=== PATIENT | female | born 1995 | race Caucasian/White ===

== ENCOUNTER 2022-02-17 04:19 | Emergency (ER) | payer OTHER ==
--- OUTSIDE RECORDS SUMMARY | 2022-02-17 04:24 | XMS REPORT | Continuity of Care Document ---
:1995 Author Organization [facility] t Address [address] [place] [address] Care Team Providers Name Role Phone Oskar ELLIOTT Primary Care Physician Unavailable MYLENE Attending Clinician Unavailable Pamela Fenton Attending Clinician Unavailable Yonny Chan Attending Clinician Unavailable SHUKRI Attending Clinician Unavailable Oskar ELLIOTT Attending Clinician Unavailable Visit, Nurse Attending Clinician Unavailable Earl WEATHERIZATION OPERATIONS MANAGER, R Attending Clinician Lab Attending Clinician Unavailable Ultrasound Attending Clinician Unavailable Lucius MOREL F Attending Clinician Doctor Unassigned, Name Attending Clinician Unavailable JOHN VUONG Attending Clinician Unavailable Risk Attending Clinician Unavailable John Rausch Attending Clinician Pamela Fenton Admitting Clinician Unavailable KNOW Admitting Clinician Unavailable Payers Payer Name Policy Type Policy Number Effective Date Expiration Date [facility] MEDICAID STAR [id number] 2020 00:00:00 [facility] [id number] 2020 [facility] MEDICAID 00:00:00 MEDICAID OF [place] [id number] 2020 00:00:00 Problems Condition Condition Condition Status Onset Resolution Last Treating Co mments Source Name Details Category Date Date Treatment Clinician Date Adult ADHD Adult ADHD Disease Active 2020-0 U nivers 5-28 ity of 00:00: [place] [id number] Medical Branch Congestion Congestion Disease Active 2020-0 U nivers of nasal of nasal 5-12 ity of sinus sinus 00:00: [place] 00 Medical Branch Attention Attention Disease Active 2020-0 Uni vers deficit deficit 5-12 ity [place] hyper[place] Medical disorder disorder Branch (ADHD), (ADHD), unspecifie unspecifie d ADHD d ADHD type type Maternal Maternal Disease Active 2020- Overview: Un sky varicella, varicella, 4-16 Will it y of non-immune non-immune [place] Medical Post[place] Branch m. Supervisio Supervisio Disease Active 2020-0 U nivers n of high n of high 4-15 ity of risk risk 00:00: [place] , , 00 Me dical antepartum antepartum Br anch Previous Previous Disease Active 2019-0 Unive rs 4-15 ity of delivery delivery 00:00: [place] affecting affecting 00 Medi michael , , Br anch antepartum antepartum Multiparit Multiparit Disease Active 2020-0 U nivers y y 4-15 ity of 00:00: [place] 00 Medical Branch Ear pain, Ear pain, Disease Active 2019-0 Uni vers bilateral bilateral 4-15 ity of 00:00: [place] 00 Medical Branch Obesity in Obesity in Disease Active 2020-0 U nivers 4-15 ity of 00:00: [place] 00 Medical Branch Allergies, Adverse Reactions, Alerts Allergy Allergy Status Severity Reaction(s) Onset Inactive Treating Comm ents Source Name Type Date Date Clinician No Known DA Active U [facility] 00 [facility] No Known DA Active U 2019-10 [facility] Allergie 1-30 [facility] 00:00: [facility] 00 [facility] No Known DA Active U 2019- [facility] Allergie 1-30 [facility] 00:00: [facility]osp[facility] 00 [facility] No Known DA Active U 2019- [facility] Allergie 1-24 [facility] s 00:00: [facility]osp[facility] 00 [facility] No Known DA Active U 2019- [facility] Allergie 1-24 [facility] s 00:00: [facility]osp[facility] 00 [facility] NO KNOWN Drug Active Univers ALLERGIE Class ity of S [facility] Social History Social Habit Start Date Stop Date Quantity Comments Source ASSERTION 2020-01-08 University of 00:00:00 [facility] History SDOH University o f Alcohol Std [place] Medical Drinks Branch History SDOH University o f Alcohol Binge [place] [facility] al [facility] Sex Assigned At [facility] [place] [facility] Exposure to Not sure University SARS-CoV-2 [place] [facility] (event) Branch Tobacco use and 2020-06-30 2020-06-30 Never used Universit y of exposure 00:00:00 00:00:00 [facility] Branch Alcohol intake 2020-06-30 2020-06-30 Ex-drinker University 00:00:00 00:00:00 (finding) [place] [facility] History SDOH 2020-02-13 2020-02-13 1 University o f Alcohol Frequency 00:00:00 00:00:00 [facility] edical Branch Smoking Status Start Date Stop Date Source Unknown if ever smoked [facility] [place] [facility] Never smoker [facility] Medications Ordered Filled Start Stop Current Ordering Indication Dosage Frequency Signature Comments Components Source Medication Medication Date Date Medication? Clinician (SIG) Name Name Blood-Gluco 2020-0 Yes [id number] Use as Univers se Meter 8-24 directed ity of (FREESTYLE 00:00: [place] LITE METER) 00 Medical Kit Branch blood sugar 2020-0 Yes [id number] Use as Univers diagnostic 8-24 directed ity o f (FREESTYLE 00:00: [place] LITE 00 Medical STRIPS) Branch strip lancets 17 2019-0 Yes [id number] Use as U nivers gauge Misc 8-24 directed ity o f 00:00: [place] 00 Medical Branch Blood-Gluco 2020-0 Yes [id number] Use as Univers se Meter 8-24 directed ity of (FREESTYLE 00:00: [place] LITE METER) 00 Medical Kit Branch blood sugar 2020-0 Yes [id number] Use as Univers diagnostic 8-24 directed ity o f (FREESTYLE 00:00: [place] LITE 00 Medical STRIPS) Branch strip lancets 17 2020-0 Yes [id number] Use as U nivers gauge Misc 8-24 directed ity o f 00:00: [place] 00 Medical Branch Blood-Gluco 2020-0 Yes [id number] Use as Univers se Meter 8-24 directed ity of (FREESTYLE 00:00: [place] LITE METER) 00 Medical Kit Branch blood sugar 2020-0 Yes [id number] Use as Univers diagnostic 8-24 directed ity o f (FREESTYLE 00:00: [place] LITE 00 Medical STRIPS) Branch strip lancets 17 2020-0 Yes [id number] Use as U nivers gauge Misc 8-24 directed ity o f 00:00: [place] 00 Medical Branch Blood-Gluco 2019-0 Yes [id number] Use as Univers se Meter 8-24 directed ity of (FREESTYLE 00:00: [place] LITE METER) 00 Medical Kit Branch blood sugar 2020-0 Yes [id number] Use as Univers diagnostic 8-24 directed ity o f (FREESTYLE 00:00: [place] LITE 00 Medical STRIPS) Branch strip lancets 17 2019-0 Yes [id number] Use as U nivers gauge Misc 8-24 directed ity o f 00:00: [place] 00 Medical Branch colistin-ne 2019-0 Yes [id number] 1[drp] Place 1 Univers omycin-hc-t 4-15 Drop in ity o f honzonium 00:00: both ears Dave as (CORTISPORI 00 4 (four) Medi michael N-TC) times Branch 3.3-3-10-0. daily. 5 mg/mL otic drops 2020-0 Yes [id number] 1{packe Take 1 Univers vit 4-15 t} Packet by ity of 33-iron-fol 00:00: mouth [place] ic-dha 00 daily. Medical (SELECT-OB Branch + DHA) 29 mg iron-1 mg -250 mg combo pack colistin-ne 2020-0 Yes [id number] 1[drp] Place 1 Univers omycin-hc-t 4-15 Drop in ity o f honzonium 00:00: both ears Dave as (CORTISPORI 00 4 (four) Medi michael N-TC) times Branch 3.3-3-10-0. daily. 5 mg/mL otic drops 2020-0 Yes [id number] 1{packe Take 1 Univers vit 4-15 t} Packet by ity of 33-iron-fol 00:00: mouth [place] ic-dha 00 daily. Medical (SELECT-OB Branch + DHA) 29 mg iron-1 mg -250 mg combo pack colistin-ne 2020-0 Yes [id number] 1[drp] Place 1 Univers omycin-hc-t 4-15 Drop in ity o f honzonium 00:00: both ears Dave as (CORTISPORI 00 4 (four) Medi michael N-TC) times Branch 3.3-3-10-0. daily. 5 mg/mL otic drops 2020-0 Yes [id number] 1{packe Take 1 Univers vit 4-15 t} Packet by ity of 33-iron-fol 00:00: mouth [place] ic-dha 00 daily. Medical (SELECT-OB Branch + DHA) 29 mg iron-1 mg -250 mg combo pack colistin-ne 2020-0 Yes [id number] 1[drp] Place 1 Univers omycin-hc-t 4-15 Drop in ity o f [place]ium 00:00: both ears Dave as (CORTISPORI 00 4 (four) Medi michael N-TC) times Branch 3.3-3-10-0. daily. 5 mg/mL otic drops 2020-0 Yes [id number] 1{packe Take 1 Univers vit 4-15 t} Packet by ity of 33-iron-fol 00:00: mouth [place] ic-dha 00 daily. Medical (SELECT-OB Branch + DHA) 29 mg iron-1 mg -250 mg combo pack colistin-ne 2020-0 Yes [id number] 1[drp] Place 1 Univers omycin-hc-t 4-15 Drop in ity o f [place] 00:00: both ears Dave as (CORTISPORI 00 4 (four) Medi michael N-TC) times Branch 3.3-3-10-0. daily. 5 mg/mL otic drops 2020-0 Yes [id number] 1{packe Take 1 Univers vit 4-15 t} Packet by ity of 33-iron-fol 00:00: mouth [place] ic-dha 00 daily. Medical (SELECT-OB Branch + DHA) 29 mg iron-1 mg -250 mg combo pack colistin-ne 2020-0 Yes [id number] 1[drp] Place 1 Univers omycin-hc-t 4-15 Drop in ity o f [place] 00:00: both ears Dave as (CORTISPORI 00 4 (four) Medi michael N-TC) times Branch 3.3-3-10-0. daily. 5 mg/mL otic drops 2020-0 Yes [id number] 1{packe Take 1 Univers vit 4-15 t} Packet by ity of 33-iron-fol 00:00: mouth [place] ic-dha 00 daily. Medical (SELECT-OB Branch + DHA) 29 mg iron-1 mg -250 mg combo pack colistin-ne 2020-0 Yes [id number] 1[drp] Place 1 Univers omycin-hc-t 4-15 Drop in ity o f [place] 00:00: both ears Dave as (CORTISPORI 00 4 (four) Medi michael N-TC) times Branch 3.3-3-10-0. daily. 5 mg/mL otic drops 2020-0 Yes [id number] 1{packe Take 1 Univers vit 4-15 t} Packet by ity of 33-iron-fol 00:00: mouth [place] ic-dha 00 daily. Medical (SELECT-OB Branch + DHA) 29 mg iron-1 mg -250 mg combo pack colistin-ne 2020-0 Yes [id number] 1[drp] Place 1 Univers omycin-hc-t 4-15 Drop in ity o f [place] 00:00: both ears Dave as (CORTISPORI 00 4 (four) Medi michael N-TC) times Branch 3.3-3-10-0. daily. 5 mg/mL otic drops 2020-0 Yes [id number] 1{packe Take 1 Univers vit 4-15 t} Packet by ity of 33-iron-fol 00:00: mouth [place] ic-dha 00 daily. Medical (SELECT-OB Branch + DHA) 29 mg iron-1 mg -250 mg combo pack colistin-ne 2020-0 Yes [id number] 1[drp] Place 1 Univers omycin-hc-t 4-15 Drop in ity o f [place] 00:00: both ears Dave as (CORTISPORI 00 4 (four) Medi michael N-TC) times Branch 3.3-3-10-0. daily. 5 mg/mL otic drops 2020-0 Yes [id number] 1{packe Take 1 Univers vit 4-15 t} Packet by ity of 33-iron-fol 00:00: mouth [place] ic-dha 00 daily. Medical (SELECT-OB Branch + DHA) 29 mg iron-1 mg -250 mg combo pack colistin-ne 2020-0 Yes [id number] 1[drp] Place 1 Univers omycin-hc-t 4-15 Drop in ity o f [place] 00:00: both ears Dave as (CORTISPORI 00 4 (four) Medi michael N-TC) times Branch 3.3-3-10-0. daily. 5 mg/mL otic drops 2020-0 Yes [id number] 1{packe Take 1 Univers vit 4-15 t} Packet by ity of 33-iron-fol 00:00: mouth [place] ic-dha 00 daily. Medical (SELECT-OB Branch + DHA) 29 mg iron-1 mg -250 mg combo pack colistin-ne 2020-0 Yes [id number] 1[drp] Place 1 Univers omycin-hc-t 4-15 Drop in ity o f [place] 00:00: both ears Dave as (CORTISPORI 00 4 (four) Medi michael N-TC) times Branch 3.3-3-10-0. daily. 5 mg/mL otic drops 2020-0 Yes [id number] 1{packe Take 1 Univers vit 4-15 t} Packet by ity of 33-iron-fol 00:00: mouth [place] ic-dha 00 daily. Medical (SELECT-OB Branch + DHA) 29 mg iron-1 mg -250 mg combo pack colistin-ne 2020-0 Yes [id number] 1[drp] Place 1 Univers omycin-hc-t 4-15 Drop in ity o f [place] 00:00: both ears Dave as (CORTISPORI 00 4 (four) Medi michael N-TC) times Branch 3.3-3-10-0. daily. 5 mg/mL otic drops 2020-0 Yes [id number] 1{packe Take 1 Univers vit 4-15 t} Packet by ity of 33-iron-fol 00:00: mouth [place] ic-dha 00 daily. Medical (SELECT-OB Branch + DHA) 29 mg iron-1 mg -250 mg combo pack colistin-ne 2020-0 Yes [id number] 1[drp] Place 1 Univers omycin-hc-t 4-15 Drop in ity o f [place] 00:00: both ears Dave as (CORTISPORI 00 4 (four) Medi michael N-TC) times Branch 3.3-3-10-0. daily. 5 mg/mL otic drops 2020-0 Yes [id number] 1{packe Take 1 Univers vit 4-15 t} Packet by ity of 33-iron-fol 00:00: mouth [place] ic-dha 00 daily. Medical (SELECT-OB Branch + DHA) 29 mg iron-1 mg -250 mg combo pack colistin-ne 2020-0 Yes [id number] 1[drp] Place 1 Univers omycin-hc-t 4-15 Drop in ity o f [place] 00:00: both ears Dave as (CORTISPORI 00 4 (four) Medi michael N-TC) times Branch 3.3-3-10-0. daily. 5 mg/mL otic drops 2020-0 Yes [id number] 1{packe Take 1 Univers vit 4-15 t} Packet by ity of 33-iron-fol 00:00: mouth [place] ic-dha 00 daily. Medical (SELECT-OB Branch + DHA) 29 mg iron-1 mg -250 mg combo pack colistin-ne 2020-0 Yes [id number] 1[drp] Place 1 Univers omycin-hc-t 4-15 Drop in ity o f [place] 00:00: both ears Dave as (CORTISPORI 00 4 (four) Medi michael N-TC) times Branch 3.3-3-10-0. daily. 5 mg/mL otic drops 2020-0 Yes [id number] 1{packe Take 1 Univers vit 4-15 t} Packet by ity of 33-iron-fol 00:00: mouth [place] ic-dha 00 daily. Medical (SELECT-OB Branch + DHA) 29 mg iron-1 mg -250 mg combo pack colistin-ne 2020-0 Yes [id number] 1[drp] Place 1 Univers omycin-hc-t 4-15 Drop in ity o f [place] 00:00: both ears Dave as (CORTISPORI 00 4 (four) Medi michael N-TC) times Branch 3.3-3-10-0. daily. 5 mg/mL otic drops 2020-0 Yes [id number] 1{packe Take 1 Univers vit 4-15 t} Packet by ity of 33-iron-fol 00:00: mouth [place] ic-dha 00 daily. Medical (SELECT-OB Branch + DHA) 29 mg iron-1 mg -250 mg combo pack colistin-ne 2020-0 Yes [id number] 1[drp] Place 1 Univers omycin-hc-t 4-15 Drop in ity o f [place] 00:00: both ears Dave as (CORTISPORI 00 4 (four) Medi michael N-TC) times Branch 3.3-3-10-0. daily. 5 mg/mL otic drops 2020-0 Yes [id number] 1{packe Take 1 Univers vit 4-15 t} Packet by ity of 33-iron-fol 00:00: mouth [place] ic-dha 00 daily. Medical (SELECT-OB Branch + DHA) 29 mg iron-1 mg -250 mg combo pack colistin-ne 2020-0 Yes [id number] 1[drp] Place 1 Univers omycin-hc-t 4-15 Drop in ity o f [place] 00:00: both ears Dave as (CORTISPORI 00 4 (four) Medi michael N-TC) times Branch 3.3-3-10-0. daily. 5 mg/mL otic drops 2020-0 Yes [id number] 1{packe Take 1 Univers vit 4-15 t} Packet by ity of 33-iron-fol 00:00: mouth [place] ic-dha 00 daily. Medical (SELECT-OB Branch + DHA) 29 mg iron-1 mg -250 mg combo pack colistin-ne 2020-0 Yes [id number] 1[drp] Place 1 Univers omycin-hc-t 4-15 Drop in ity o f [place] 00:00: both ears Dave as (CORTISPORI 00 4 (four) Medi michael N-TC) times Branch 3.3-3-10-0. daily. 5 mg/mL otic drops 2020-0 Yes [id number] 1{packe Take 1 Univers vit 4-15 t} Packet by ity of 33-iron-fol 00:00: mouth [place] ic-dha 00 daily. Medical (SELECT-OB Branch + DHA) 29 mg iron-1 mg -250 mg combo pack colistin-ne 2020-0 Yes [id number] 1[drp] Place 1 Univers omycin-hc-t 4-15 Drop in ity o f [place] 00:00: both ears Dave as (CORTISPORI 00 4 (four) Medi michael N-TC) times Branch 3.3-3-10-0. daily. 5 mg/mL otic drops 2020-0 Yes [id number] 1{packe Take 1 Univers vit 4-15 t} Packet by ity of 33-iron-fol 00:00: mouth [place] ic-dha 00 daily. Medical (SELECT-OB Branch + DHA) 29 mg iron-1 mg -250 mg combo pack colistin-ne 2020-0 Yes [id number] 1[drp] Place 1 Univers omycin-hc-t 4-15 Drop in ity o f [place] 00:00: both ears Dave as (CORTISPORI 00 4 (four) Medi michael N-TC) times Branch 3.3-3-10-0. daily. 5 mg/mL otic drops 2020-0 Yes [id number] 1{packe Take 1 Univers vit 4-15 t} Packet by ity of 33-iron-fol 00:00: mouth [place] ic-dha 00 daily. Medical (SELECT-OB Branch + DHA) 29 mg iron-1 mg -250 mg combo pack colistin-ne 2020-0 Yes [id number] 1[drp] Place 1 Univers omycin-hc-t 4-15 Drop in ity o f [place] 00:00: both ears Dave as (CORTISPORI 00 4 (four) Medi michael N-TC) times Branch 3.3-3-10-0. daily. 5 mg/mL otic drops 2020-0 Yes [id number] 1{packe Take 1 Univers vit 4-15 t} Packet by ity of 33-iron-fol 00:00: mouth [place] ic-dha 00 daily. Medical (SELECT-OB Branch + DHA) 29 mg iron-1 mg -250 mg combo pack colistin-ne 2020-0 Yes [id number] 1[drp] Place 1 Univers omycin-hc-t 4-15 Drop in ity o f [place] 00:00: both ears Dave as (CORTISPORI 00 4 (four) Medi michael N-TC) times Branch 3.3-3-10-0. daily. 5 mg/mL otic drops 2020-0 Yes [id number] 1{packe Take 1 Univers vit 4-15 t} Packet by ity of 33-iron-fol 00:00: mouth [place] ic-dha 00 daily. Medical (SELECT-OB Branch + DHA) 29 mg iron-1 mg -250 mg combo pack colistin-ne 2019-0 Yes [id number] 1[drp] Place 1 Univers omycin-hc-t 4-15 Drop in ity o f [place] 00:00: both ears Dave as (CORTISPORI 00 4 (four) Medi michael N-TC) times Branch 3.3-3-10-0. daily. 5 mg/mL otic drops 0 Yes [id number] 1{packe Take 1 Univers vit 4-15 t} Packet by ity of 33-iron-fol 00:00: mouth [place] ic-dha 00 daily. Medical (SELECT-OB Branch + DHA) 29 mg iron-1 mg -250 mg combo pack Vital Signs Vital Name Observation Time Observation Value Comments Source Systolic blood 2020-06-30 13:16:00 113 mm[Hg] Univer sity of [facility] Diastolic blood 2020-06-30 13:16:00 70 mm[facility]Hg] [facility] Heart rate 2020-06-30 13:16:00 110 /min [facility] Body temperature 2020-06-30 13:16:[address] [facility] 2020-06-30 13:16:00 16 /min [facility] Body height 2020-06-30 13:16:00 170.2 cm [facility] Body weight 2020-06-30 13:16:00 102.513 [facility] BMI 2020-06-30 13:16:00 35.40 kg/m2 [facility] Systolic blood 2020-06-30 13:16:00 113 mm[Hg] Univer sity of [facility] Diastolic blood 2020-06-30 13:16:00 70 mm[Hg] Unive rsity of [facility] Heart rate 2020-06-30 13:16:00 110 /min [facility] Body temperature 2020-06-30 13:16:[address] [facility] Respiratory rate 2020-06-30 13:16:00 16 /min [facility] Body height 2020-06-30 13:16:00 170.2 cm Universi ty of [place] [facility] Body weight 2020-06-30 13:16:00 102.513 kg [facility]i ty [facility] [place] [facility] BMI 2020-06-30 13:16:00 35.40 kg/m2 [facility]i ty [facility] [place] [facility] Systolic blood 2020-06-17 15:43:00 118 mm[Hg] Univer sity of pressure [place] [facility] Diastolic blood 2020-06-17 15:43:00 76 mm[Hg] Unive rsity of pressure [place] [facility] Heart rate 2020-06-17 15:43:00 96 /min Universi ty of [place] [facility] Body temperature 2020-06-17 15:43:00 36.28 Rosario Univ ersity of [place] [facility] Respiratory rate 2020-06-17 15:43:00 16 /min Univ ersity of [place] [facility] Body height 2020-06-17 15:43:00 170.2 cm [facility]i ty [facility] [place] [facility] Body weight 2020-06-17 15:43:00 102.74 kg [facility] [place] [facility] BMI 2020-06-17 15:43:00 35.47 kg/m2 [facility] [place] [facility] Systolic blood 2020-05-13 18:05:00 126 mm[Hg] Univer sity of pressure [place] [facility] Diastolic blood 2020-05-13 18:05:00 71 mm[Hg] Unive rsity of pressure [place] [facility] Heart rate 2020-05-13 18:05:00 87 /min Universi ty [facility] [place] [facility] Body temperature 2020-05-13 18:05:00 36.56 Rosario Univ ersity of [place] [facility] Respiratory rate 2020-05-13 18:05:00 16 /min Univ ersity of [place] [facility] Body height 2020-05-13 18:05:00 170.2 cm [facility]i ty [facility] [place] [facility] Body weight 2020-05-13 18:05:00 102.649 kg [facility] [place] [facility] BMI 2020-05-13 18:05:00 35.44 kg/m2 [facility] [place] [facility] Systolic blood 2020-04-14 21:00:00 129 mm[Hg] Univer sity of pressure [place] [facility] Diastolic blood 2020-04-14 21:00:00 87 mm[Hg] Unive rsity of pressure [place] [facility] Heart rate 2020-04-14 21:00:00 86 /min [facility]i ty [facility] [place] [facility] [place] Body temperature 2020-04-14 21:00:00 36.67 Rosario Univ ersity of [facility] Respiratory rate 2020-04-14 21:00:00 16 /min Univ ersity of [facility] Body height 2020-04-14 21:00:00 170.2 cm Universi ty of [facility] Body weight 2020-04-14 21:00:00 103.137 kg Universi ty of [facility] BMI 2020-04-14 21:00:00 35.61 kg/m2 Universi ty of [facility] Systolic blood 2020-02-13 15:32:00 118 mm[Hg] Univer sity of pressure [facility] Diastolic blood 2020-02-13 15:32:00 67 mm[Hg] [facility] Heart rate 2020-02-13 15:32:00 92 /min Universi ty of [facility] Body temperature 2020-02-13 15:32:[address] [facility] Respiratory rate 2020-02-13 15:32:00 16 /min Univ ersity of [facility] Body height 2020-02-13 15:32:00 170.2 cm Universi ty of [facility] Body weight 2020-02-13 15:32:00 104.441 kg Universi ty of [facility] BMI 2020-02-13 15:32:00 36.06 kg/m2 Universi ty of [facility] Procedures Procedure Date / Time Performing Clinician Source Performed [id number] 2020-09-23 00:00:00 [facility] POCT URINALYSIS 2020-06-17 15:51:00 [facility] 2020-06-17 15:50:00 [facility] POCT URINALYSIS 2020-05-13 00:00:00 [facility] POCT URINALYSIS 2020-04-14 21:13:00 Annie Elliott [facility] GLUCOSE 1 HOUR POST 2020-02-13 16:53:[address] CBC WITH DIFFERENTIAL 2020-02-13 16:53:00 [facility] SURFACE 2020-02-13 16:53:00 Annie Elliott [facility] HIV 1/2 AG-AB WITH 2020-02-13 16:53:00 Annie Elliott [facility] sity [facility] REFLEX [facility] HB ABO GROUPING 2020-02-13 16:45:00 Annie Elliott [facility] PAP SMEAR-LIQUID 2020-02-13 16:27:00 Annie Elliott [facility] POCT TEST 2020-02-13 15:34:[address] POCT URINALYSIS 2020-02-13 15:33:00 Annie Elliott [facility] ASSIGNMENT OF BENEFITS 2020-02-13 15:13:36 Doctor Unassigned, [facility] Encounters Start End Encounter Admission Attending Care Care Encounter Source Date/Time Date/Time Type Type Clinicians Facility Department ID 2022-02-05 Outpatient MYLENE [facility] [id number] [place] 09:43:36 YVES [id number] [facility] 2020-09-29 Inpatient [facility] KEVIN [id number] [facility] 08:28:00 [id number] [facility] [place] 2020-09-23 Inpatient AMINATA [place]enton, [facility] GABRIELA [id number] [facility] 10:00:00 Jeremiah [id number] [facility] [place] 2022-01-15 2022-01-15 Emergency EM Eframallory Freye, [facility] KEVIN [id number] [facility] 17:24:00 18:34:00 Ebony [id number] [facility] [place] 2022-01-15 2022-01-15 Emergency EM Eframallory Leon, [facility] [id number] [facility] 17:24:00 18:34:00 Ebony 75 [facility] [place] 2021-09-30 2021-09-30 Outpatient R [facility] [id number] [facility] 10:00:00 10:00:00 [id number] ity [facility] 2021-09-30 2021-09-30 Outpatient R SHUKRI [facility] [id number] Univers 10:00:00 10:00:00 JOSE borregokaro o joaquín [facility] 2020-09-19 2020-09-19 [id number] 10:00:00 10:00:00 Jeremiah [facility] 2020-07-14 2020-07-14 Outpatient R ELLIOTT, [facility] [id number] Univers 12:45:00 12:45:00 ANNIE [id number] aria o joaquín [facility] 2020-07-14 2020-07-14 Outpatient R ELLIOTT, [facility] [id number] Univers 12:45:00 12:45:00 ANNIE knapp o joaquín [facility] 2020-07-14 2020-07-14 Outpatient R ELLIOTT, [facility] [id number] Univers 12:45:00 12:45:00 ANNIE borregokaro o joaquín [facility] 2020-06-30 2020-06-30 Outpatient R [facility] [id number] Univers 08:30:00 08:30:00 [id number] [facility] 2020-06-30 2020-06-30 Outpatient R [facility] [id number] Univers [facility]:30[facility]00 [facility] 2020-06-30 Nurse Visit, Stephen-Rmchp Nurse [facility] 1.2 .840.114 [id number] Univers 08:04:52 08:19:52 Visit Annie Elliott R PAPERBOARD 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 350.1.13.10 ity of REGIONAL 4.2.7.2.686 Dave as MATERNAL [phone] Med ical & CHILD [address] [place] [address] 2020-06-30 2020-06-30 Nurse Visit, [facility] 1.2.840.114 [id number] 08:04:52 08:19:52 Visit Stephen-Rmcheddie PAPERBOARD 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 350.1.13.10 Nurse [facility] 4.2.7.2.686 MATERNAL [phone] & CHILD 107 [facility] 2020-06-25 2020-06-25 Outpatient [facility] [id number] -20 Univers 09:30:00 09:30:00 [id number] ity [facility] 2020-06-23 2020-06-23 Telephone Earl [facility] [id number] [facility] 00:00:00 00:00:00 Roshunda R PAPERBOARD 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 350.1.13.10 ity of REGIONAL 4.2.7.2.686 Dave as MATERNAL [id number] Med ical & CHILD [address] [place] [address] 2020-06-23 2020-06-23 Whiting Earl [facility] 1.2.601.416 [id number] Univers 00:00:00 00:00:00 Roshunda R PAPERBOARD 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 350.1.13.10 ity of REGIONAL 4.2.7.2.686 Dave as MATERNAL [phone] Med ical & CHILD [address] [place] [address] 2020-06-23 2020-06-23 Whiting Earl [facility] [id number] 00:00:00 00:00:00 Roshunda R PAPERBOARD 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 350.1.13.10 REGIONAL 4.2.7.2.686 MATERNAL [id number] & CHILD [address] [place] [address] 2020-06-23 2020-06-23 Whiting Earl [facility] [id number] 00:00:00 00:00:00 Roshunda R PAPERBOARD 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 350.1.13.10 REGIONAL 4.2.7.2.686 MATERNAL [phone] & CHILD [address] [place] [address] 2020-06-20 2020-06-20 What Job Titles Mean Lab, Ang-Rmchp [facility] 1.2.840. 114 [id number] Univers 07:58:46 08:45:00 Visit Elsie Elliottfawn R PAPERBOARD 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 350.1.13.10 ity of REGIONAL 4.2.7.2.686 Dave as MATERNAL [phone] Med ical & CHILD [address] [place] [address] 2020-06-20 2020-06-20 Outpatient [facility] [id number] -[id number] Univers 08:15:00 08:15:00 [id number] ity [facility] 2020-06-20 2020-06-20 Outpatient Oskar ELLIOTT [facility] [id number] Univers 08:15:00 08:15:00 ROSHUNDA ity o f [facility] 2020-06-18 2020-06-18 Telephone Earl WAMATTY [id number] [id number] Univers 00:00:00 00:00:00 Roshunda R PAPERBOARD 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 350.1.13.10 ity of REGIONAL 4.2.7.2.686 Dave as MATERNAL [id number] [facility] ical & CHILD [address] [place] [address] 2020-06-17 2020-06-17 Routine Earl [facility] 1.2.840.114 [id number] Univers 10:25:25 11:09:57 Roshunda R PAPERBOARD 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 350.1.13.10 ity of Visit REGIONAL 4.2.7.2.686 Dave as MATERNAL [id number] [facility] & CHILD [address] [place] [address] 2020-06-17 2020-06-17 Outpatient R EARL [facility] [id number] -20 Univers 10:45:00 10:45:00 MARCELLANDYonny [id number] ity o [facility] 2020-06-17 2020-06-17 Outpatient R EARL [facility] [id number] Univers 10:45:00 10:45:00 ROSHUNDA itkaro o f [facility] 2020-06-13 2020-06-13 Outpatient R EARL [facility] [id number] -[id number] Univers 08:45:00 08:45:00 MARCELLANDYonny [id number] ity o f [facility] 2020-06-13 2020-06-13 Outpatient R EARL [facility] [id number] Univers 08:45:00 08:45:00 ROSMARIPOSANDA itkaro o f [facility] 2020-06-09 2020-06-09 Outpatient R EARL [facility] [id number] -20 Univers 12:45:00 12:45:00 MARCELLANDYonny itkaro o f [facility] 2020-06-09 2020-06-09 Outpatient R EARL [facility] [id number] Univers 12:45:00 12:45:00 ROSHUNDA ity o f [facility] 2020-06-09 2020-06-09 Outpatient R EARL [facility] [id number] Univers 12:45:00 12:45:00 ROSMARIPOSANDA ity o f [facility] 2020-05-13 2020-05-13 Routine Earl [facility] 1.2.840.114 [id number] Univers 12:54:09 13:09:09 Rosmariposanda R PAPERBOARD 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 350.1.13.10 ity of Visit REGIONAL 4.2.7.2.686 Dave as MATERNAL [phone] Med ical & CHILD [address] [place] [address] 2020-05-13 2020-05-13 What Job Titles Mean Ultrasound, [facility] 1.2 .840.114 [id number] Univers 11:01:46 12:28:32 Visit Lucius Kraig Yanes PAPERBOARD 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 350.1.13.10 ity of REGIONAL 4.2.7.2.686 Dave as MATERNAL [id number] Med ical & CHILD 369 [facility] 2020-05-13 2020-05-13 Outpatient R [facility] [id number] -20 Univers 10:45:00 10:45:00 [id number] ity of [facility] 2020-05-13 2020-05-13 Outpatient R [facility] [id number] Univers 10:45:00 10:45:00 ity of [facility] 2020-05-13 2020-05-13 Abstract Elliott [facility] 1.2.840.114 [id number] Univers 00:00:00 00:00:00 Rosmariposanda R PAPERBOARD 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 350.1.13.10 ity of REGIONAL 4.2.7.2.686 Dave as MATERNAL [phone] Med ical & CHILD [address] [place] [address] 2020-04-16 2020-04-16 Patient Doctor [facility] 1.2.840.114 [id number] Univers 00:00:00 00:00:00 Secure Msg Unassigned, PAPERBOARD 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 350.1.13.10 ity of [place] REGIONAL 4.2.7.2.686 Dave as MATERNAL [phone] Med ical & CHILD [address] [place] [address] 2020-04-14 2020-04-14 Routine Earl [facility] 1.2.840.114 [id number] Univers 15:52:32 16:24:52 Roshunda R PAPERBOARD 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 350.1.13.10 ity of Visit REGIONAL 4.2.7.2.686 Dave as MATERNAL [phone] [facility] [address] [place] [address] 2020-04-14 2020-04-14 Outpatient R EARL [facility] [id number] -20 Univers 15:45:00 15:45:00 ROSHUNDA [id number] ity o [facility] 2020-04-14 2020-04-14 Outpatient R EARL [facility] [id number] Univers 15:45:00 15:45:00 ROSHUNDA ity o [facility] 2020-04-07 2020-04-07 Outpatient R EARL [facility] [id number] -20 Univers 10:30:00 10:30:00 MARCELLANDA ity o [facility] 2020-04-07 2020-04-07 [facility] [id number] Univers 10:30:00 10:30:00 ROSHUNDA ity o [facility] 2020-04-04 2020-04-04 [facility] 1.2.203.147 [id number] Univers 00:00:00 00:00:00 Rosnda R PAPERBOARD 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 350.1.13.10 ity of REGIONAL 4.2.7.2.686 Dave as MATERNAL [id number] [facility] & [address] 2020-03-27 2020-03-27 Outpatient R [facility] [id number] -20 Univers 10:30:00 10:30:00 [id number] ity [facility] 2020-03-27 2020-03-27 Outpatient [facility] [id number] Univers 10:30:00 10:30:00 [facility] 2020-03-27 2020-03-27 Telemedici , Mgo-Jpxlv-Se/High [facility] 1.2.840.114 [id number] Univers 08:51:09 09:06:09 ne Visit Felicitas Vuong PAPERBOARD 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 350.1.13.10 ity of REGIONAL 4.2.7.2.686 Dave as MATERNAL [id number] [facility] [address] [place] [address] 2020-03-11 2020-03-11 Outpatient R EARL [facility] [id number] -[id number] Univers 13:30:00 13:30:00 ANNIE [id number] ity o joaquín [facility] 2020-03-11 2020-03-11 Outpatient R EARL [facility] [id number] Univers 13:30:00 13:30:00 ELSIEMARIPOSANDA ity o joaquín [facility] 2020-03-11 2020-03-11 Telemedici [facility] 1.2.840.114 [id number] Univers 07:43:23 07:58:23 ne Visit Annie R PAPERBOARD 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 350.1.13.10 ity of [facility] 4.2.7.2.686 Dave as MATERNAL [id number] [facility] & CH[facility] [address] [place] [address] 2020-03-05 2020-03-05 Patient Doctor [facility] 1.2.840.114 [id number] Univers 00:00:00 00:00:00 Secure Msg Unassigned, PAPERBOARD 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 350.1.13.10 ity of [place] REGIONAL 4.2.7.2.686 Adve as MATERNAL [id number] [facility] [address] [place] [address] 2020-03-03 2020-03-03 Patient Doctor [facility] 1.2.840.114 [id number] Univers 00:00:00 00:00:00 Secure Msg Unassigned, PAPERBOARD 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 350.1.13.10 ity of [place] REGIONAL 4.2.7.2.686 Dave as MATERNAL [id number] [facility] CH[facility] [address] [place] [address] 2020-02-20 2020-02-20 Outpatient R EARL [facility] [id number] Univers 13:15:00 13:15:00 BOLIVARA aria o joaquín [facility] 2020-02-15 2020-02-15 Patient Doctor [facility] 1.2.840.114 [id number] Univers 00:00:00 00:00:00 Secure Msg Unassigned, PAPERBOARD 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 350.1.13.10 ity of [place] [facility] 4.2.7.2.686 Dave as MATERNAL [id number] [facility] CH[facility] [address] [place] [address] 2020-02-13 2020-02-13 Initial [facility] 1.2.840.114 [id number] Univers 10:21:32 11:23:31 Annie Schmitt PAPERBOARD 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 350.1.13.10 ity of Visit [facility] 4.2.7.2.686 Dave as MATERNAL [id number] [facility] CH[facility] [address] [place] [address] 2020-02-13 2020-02-13 [facility] [id number] Univers 09:45:00 09:45:00 ANNIE ity o f [facility] 2020-02-13 2020-02-13 Orders Doctor TASHA 1.2.840.114 [id number] Univers 00:00:00 00:00:00 Only Unassigned, ARUN 350.1.13.10 ity of [place] [address]686 Dave as [phone] [address] Results Test Description Test Time Test Comments Results Result Comments Source UA RFLX MICR CULT IF INDICATED 2022-01-15 19:59:00 Test Item Value Reference Range Interpretation Comme nts UA COLOR (test code = COLU) YELLOW YELLOW UA APPEARANCE (test code = APPU) CLEAR CLEAR UA GLUCOSE DIPSTICK (test code = DGLUU) NEGATIVE NEG UA BILIRUBIN DIPSTICK (test code = BILU) NEGATIVE NEG UA KETONE DIPSTICK (test code = KETU) NEGATIVE NEG UA SPECIFIC GRAVITY (test code = SGU) 1.025 1.001-1.035 N UA BLOOD DIPSTICK (test code = CANDICE) 2+ NEG A UA PH DIPSTICK (test code = CHELITA) 6.0 5-9 UA PROTEIN DIPSTICK (test code = PROU) NEGATIVE NEG UA UROBILINIOGEN DIPSTICK (test code = URO) NEGATIVE mg/dL NEG UA NITRITE DIPSTICK (test code = CLAUDIA) NEG NEG UA LEUKOCYTE ESTERASE DIPSTICK (test code = LEUU) NEG NEG UA WBC (test code = WBCU) 0-2 #/hpf NONE SEEN UA EPITHELIAL CELLS (test code = EPIU) RARE #/HPF RARE-FEW UA RBC (test code = RBCU) 3-5 #/hpf NONE SEEN A UA MUCUS (test code = MUCU) RARE NONE SEEN Indication for culture: Dysuria/FrequencySpecimen Description: CLEAN CATCHUR HCG [id number] 19:59:00 Test Item Value Reference Range Interpretation Comments UR HCG QUAL (test NEGATIVE 1. Very di lute urine code = HCGQLU) specimens, as indicated by a lowspecific g ravity, may not contain rep resentative levels ofhCG. 2 . False negative result s may occur when the levels of hCGare below the sensi tivity level of the test. If is still suspec jessie, a first morningurine sp ecimen should be colle cted 48 hours later and tested. Indication for culture: Dysuria/FrequencySpecimen Description: CLEAN CATCH DRUGS OF ABUSE [id number] 19:56:00 Test Item Value Reference Range Interpretation Comments UR COCAINE (test code = NEGATIVE NEGATIVE DETE CTION CUT OFF: COCAU) 150 ng/mL UR CANNABINOIDS (test NEGATIVE NEGATIVE DETECT ION CUT OFF: 50 code = CANU) ng/mL UR AMPHETAMINE (test POSITIVE NEGATIVE A RESULTS CALLED TO code = AMPHU) MIROSLAVA GERMAIN EAD BACK & CONFIRME D? YBY F.LAB.RV 1954 RESULTS SE NT FOR CONFIRMATION OF SCREEN RESULTSS EE OTHER SPECIMEN FOR CONFIRMATION RE SULTS These results a re to be used only fo r medical (ie,treatment) purposes. Uncon firmed screening resul ts must notbe used for non-medical pur poses (eg, employment testing)DETECTI ON CUT OFF: 500 ng/mL UR BARBITURATE QUAL NEGATIVE NEGATIVE DETECTIO N CUT OFF: (test code = BARBQLU) 200 ng /mL UR BENZODIAZEPINE (test NEGATIVE NEGATIVE DETE CTION CUT OFF: code = BENZU) 150 ng/mL UR OPIATES QUAL (test NEGATIVE NEGATIVE DETECT ION CUT OFF: code = OPIAQLU) 100 ng/mL UR PHENCYCLIDINE (PCP) NEGATIVE NEGATIVE DETEC TION CUT OFF: 25 (test code = PHENCU) ng/mL - CT ANGIO [id number] 11:16:00 [facility] : 1995 Sex: F Patient Name: ABNER NOYOLA Unit No: [id number] EXAMS: CPT CODE: [id number] CT ANGIO CHEST [address] CT SCAN OF THE CHEST WITH CONTRAST (CTPA): DATE: September 29, 2020 COMPARISON: None CLINICAL HISTORY:Status post , shortness of breath, elevated d-dimer, chest pain One or more of the following dose techniques were utilized; automated exposure control, adjustment of the mA and/or kV according to patient size, and/or utilization of iterative recons truction technique. DLP: 558.03 mGy-cm. TECHNIQUE: Sequential scanning of the chest as a PE protocol was performed with Isovue 300 IV. Sagittal and coronal reformatted images were obtained as well as right and left oblique MIPS images of the pulmonary vasculature were obtained. 3D MIP images of the pulmonary vasculature were processed. FINDINGS: The pulmonary arteries are opacified and demonstrate no definite filling defects to suggest pulmonary emboli. No aortic dissection is seen. The pulmonary vasculature is prominent. No areas of consolidation are identified. Hypoventilatory changes are noted in the lower dependent lungs bilaterally. Small right-sided pleural effusion and trace left sided pleural effusion is identified. Heart is prominent. No significant mediastinal adenopathy is identified. Visualized osseous structures demonstrate no acute abnormalities. The visualized upper abdomen and lower neck are unremarkable. IMPRESSION: No pulmonary emboli moon ntified. Prominent pulmonary vasculature and pleural effusions are suggestive of fluid overload. Mildly prominent heart. [facility] NAME: ABNER NOYOLA Radiology Department PHYS: Kervin Rodríguez [address] : 1995 AGE: 25 SEX: F [place], [place] [address] LOC: SANDRA PHONE #: [phone] EXAM DATE: 09/29/2020 STATUS: REG ER FAX #: [phone] RAD NO: Page 1 Signed Report 1 Patient Name: ABNER NOYOAL Unit No:[id number] EXAMS: CPT CODE: [id number] CTANGIO CHEST 98337 <Continued> at 1116 Reported and signed by: Stella Diaz MD CC: Kervin Rosa MD; Jeremiah Fenton Technologist: Fernandez Chatman, RT, CT CTDI: 17.86 DLP: 558.03 Trnscrbd D/ (1116) Jocelyne [facility] NAME: ABNER NOYOLA Radiology Department PHYS: Kervin Rodríguez [address] : 1995 AGE: 25 SEX: F [place] [address] LOC: FranERS PHONE #: [phone] EXAM DATE: 09/29/2020 STATUS: REG ER FAX #: [phone] RAD NO: Page 2 Signed Report 1 Patient Name: ABNER NOYOLA Unit No: [id number] EXAMS: CPT CODE: [id number] CT ANGIO CHEST 61899 <Continued> OrigPrint D/T: S: 09/29/2020 (1119) [facility] NAME: ABNER NOYOLA Radiology Department PHYS: Kervin Rodríguez [address] : 1995 AGE: 25 SEX: F [place] [address] LOC: Joaquín.ERS PHONE #: [phone] EXAM DATE: 09/29/2020 STATUS: REG ER FAX #: [phone] RAD NO: Page 3 Signed Report 1D-DIMER [id number] 10:05:00 Test Item Value Reference Range Interpretation Comments D-DIMER QUANT 853 ng/mLDDU <255 H (test code = Stanton HALL) Range in : &lt ;570 ng/ml A positive test d oes not provide a defin itive diagnosis ofDVT and indicates the n eed for follow up clini michael studies. The pr edictive value of a nega tive test is 98% for rulingout DVT. - XR CHEST 1 [id number] 10:03:00 [facility] 1995 Sex: F Patient Name: ABNER NOYOLA Unit No: [id number] EXAMS: CPT CODE: [id number] XR CHEST 1 V 64447 Clinical Indication: Shortness of breath after section Comparison: None FINDINGS: Low lung volumes results in crowding of the central pulmonary vasculature. No lobar consolidation. No pleural effusion. Lucency at the right lung apex is felt to represent mockartifact. The cardiac silhouette is accentuated by low lung volumes and portable technique. Midline trachea. No acute osseous abnormalities. IMPRESSION: Low lung volumes. No consolidative pneumonia. SL: [id number] at 1003 Reported and signed by: Tyler Lewis MD CC: Kervin Rosa MD; Jeremiah Fenton Technologist: Angely Koroma, RT, CT Trnscrbd D/ (1003) [id number] Print D/T: S: 09/29/2020 (1006) [facility] NAME: ABNER NOYOLA Radiology Department PHYS: DANDY Danielle JohnsonRobledoKervin [address] : 1995 AGE: 25 SEX: F [place] [address] LOC: SANDRA PHONE #: [phone] EXAM DATE: 09/29/2020 STATUS: REG ER FAX #: [phone] RAD NO: Page 1 Signed ReportB-TYPE NATRIURETIC [id number] 09:48:00 Test Item Value Reference Range Interpretation Comments B-TYPE NATRIURETIC PEPTIDE (test 383.61 pg/mL 0-100 H code = BNP) DRUGS OF ABUSE [id number] 09:43:00 Test Item Value Reference Range Interpretation Comments UR COCAINE (test code = NEGATIVE NEGATIVE DETE CTION CUT OFF: COCAU) 150 ng/mL UR CANNABINOIDS (test NEGATIVE NEGATIVE DETECT ION CUT OFF: code = CANU) 50 ng/mL UR AMPHETAMINE (test code NEGATIVE NEGATIVE DE TECTION CUT OFF: = AMPHU) 500 ng/mL UR BARBITURATE QUAL (test NEGATIVE NEGATIVE DE TECTION CUT OFF: code = BARBQLU) 200 ng/mL UR BENZODIAZEPINE (test NEGATIVE NEGATIVE DETE CTION CUT OFF: code = BENZU) 150 ng/mL UR OPIATES QUAL (test NEGATIVE NEGATIVE DETECT ION CUT OFF: code = OPIAQLU) 100 ng/mL UR PHENCYCLIDINE (PCP) NEGATIVE NEGATIVE DETEC TION CUT OFF: (test code = PHENCU) 25 ng/m L COMPREHENSIVE METABOLIC [id number] 09:42:00 Test Item Value Reference Range Interpretation Comments SODIUM (test code = 143 mEq/L 135-145 N NA) POTASSIUM (test code 2.7 mEq/L 3.5-5.0 LL RESULTS VERIFIED BY = K) REPEAT ANALYSIS RESULTS CALLED TO ELVIN GUZMANREAD BACK & CONFIRME D? YES.BY FLibbyLABLibbyEL B1 09/29/20 0925. CHLORIDE (test code 105 mEq/L 100-115 N = CL) CARBON DIOXIDE (test 27 mEq/L 22-31 N code = CO2) ANION GAP (test code 13.30 10-20 N = GAP) GLUCOSE (test code = 104 mg/dL 65-110 N GLU) BLOOD UREA NITROGEN 11 mg/dL 7-18 N (test code = BUN) GLOMERULAR 100 ml/min >60 N FILTRATION RATE (test code = GFR) CREATININE (test 0.7 mg/dL 0.5-1.0 N code = CREAT) TOTAL PROTEIN (test 6.5 gm/dL 6.3-8.2 N code = PROT) ALBUMIN (test code = 2.5 gm/dL 3.4-4.8 L ALB) CALCIUM (test code = 8.5 mg/dL 8.4-10.2 N CA) BILIRUBIN TOTAL 0.2 mg/dL 0.2-1.0 N (test code = BILT) SGOT/AST (test code 21 units/L 15-37 N = AST) SGPT/ALT (test code 23 units/L 12-78 N = ALT) ALKALINE PHOSPHATASE 94 units/L 46-116 N TOTAL (test code = ALKP) [id number] 09:42:00 Test Item Value Reference Range Interpretation Comments TROPONIN-I (test code = TROPI) 0.053 ng/mL <0.056 N COMPREHENSIVE METABOLIC [id number] 09:25:00 Test Item Value Reference Range Interpretation Comments SODIUM (test code = 143 mEq/L 135-145 N NA) POTASSIUM (test code 2.7 mEq/L 3.5-5.0 LL RESULTS VERIFIED BY = K) REPEAT ANALYSIS RESULTS CALLED TO ELVIN GUZMANREAD BACK & CONFIRME D? YES.BY MOIEL B1 09/29/20924. CHLORIDE (test code 105 mEq/L 100-115 N = CL) CARBON DIOXIDE (test 27 mEq/L 22-31 N code = CO2) ANION GAP (test code 13.30 10-20 N = GAP) GLUCOSE (test code = 104 mg/dL 65-110 N GLU) BLOOD UREA NITROGEN 11 mg/dL 7-18 N (test code = BUN) GLOMERULAR 100 ml/min >60 N FILTRATION RATE (test code = GFR) CREATININE (test 0.7 mg/dL 0.5-1.0 N code = CREAT) TOTAL PROTEIN (test 6.5 gm/dL 6.3-8.2 N code = PROT) ALBUMIN (test code = 2.5 gm/dL 3.4-4.8 L ALB) CALCIUM (test code = 8.5 mg/dL 8.4-10.2 N CA) BILIRUBIN TOTAL 0.2 mg/dL 0.2-1.0 N (test code = BILT) SGOT/AST (test code 21 units/L 15-37 N = AST) SGPT/ALT (test code 23 units/L 12-78 N = ALT) ALKALINE PHOSPHATASE units/L 46-116 TOTAL (test code = ALKP) [id number] 09:25:00 Test Item Value Reference Range Interpretation Comments TROPONIN-I (test code = TROPI) 0.053 ng/mL <0.056 N UA RFLX MICR CULT IF [id number] 09:21:00 Test Item Value Reference Range Interpretation Comments UA COLOR (test code = COLU) STRAW YELLOW UA APPEARANCE (test code = CLEAR CLEAR APPU) UA GLUCOSE DIPSTICK (test code NEGATIVE NEG = DGLUU) UA BILIRUBIN DIPSTICK (test NEGATIVE NEG code = BILU) UA KETONE DIPSTICK (test code NEGATIVE NEG = KETU) UA SPECIFIC GRAVITY (test code 1.005 1.001-1.035 N = SGU) UA BLOOD DIPSTICK (test code = 1+ NEG A CANDICE) UA PH DIPSTICK (test code = 7.0 5-9 CHELITA) UA PROTEIN DIPSTICK (test code NEGATIVE NEG = PROU) UA UROBILINIOGEN DIPSTICK NEGATIVE mg/dL NEG (test code = URO) UA NITRITE DIPSTICK (test code NEG NEG = CLAUDIA) UA LEUKOCYTE ESTERASE DIPSTICK NEG NEG (test code = LEUU) UA WBC (test code = WBCU) 0-2 #/hpf NONE SEEN UA RBC (test code = RBCU) 0-2 #/hpf NONE SEEN UA EPITHELIAL CELLS (test code RARE #/HPF RARE-FEW = EPIU) UA BACTERIA (test code = BACU) RARE /HPF RARE-FEW UA MUCUS (test code = MUCU) RARE NONE SEEN Indication for culture: Suprapubic PainSpecimen Description: CLEAN CATCHCBC W/AUTO [id number] 09:08:00 Test Item Value Reference Range Interpretation Comments WHITE BLOOD CELL (test code = WBC) 7.2 K/mm3 6.6-12.1 N RED BLOOD CELL (test code = RBC) 2.84 M/mm3 3.45-5.01 L HEMOGLOBIN (test code = HGB) 8.9 g/dL 10.7-13.9 L HEMATOCRIT (test code = HCT) 28.0 % 32.1-42.1 L MEAN CELL VOLUME (test code = MCV) 99 fL 84.1-94.8 H MEAN CELL HGB (test code = MCH) 31.3 pg 27-35 N MEAN CELL HGB CONCETRATION (test 31.8 gm/dL 32.2-34.1 L code = MCHC) RED CELL DISTRIBUTION WIDTH (test 13.4 % 12.4-16.5 N code = RDW) PLATELET COUNT (test code = PLT) 365 K/mm3 133-385 N MEAN PLATELET VOLUME (test code = 9.0 fl 9.1-12.7 L MPV) NEUTROPHIL % (test code = NT%) 71.6 % 56.5-79.4 N LYMPHOCYTE % (test code = LY%) 18.7 % 14.3-34.3 N MONOCYTE % (test code = MO%) 5.4 % 5.1-10.4 N EOSINOPHIL % (test code = EO%) 2.2 % 0.1-3.0 N BASOPHIL % (test code = BA%) 0.4 % 0.1-1.0 N NEUTROPHIL # (test code = NT#) 5.2 K/mm3 LYMPHOCYTE # (test code = LY#) 1.4 K/mm3 MONOCYTE # (test code = MO#) 0.4 K/mm3 EOSINOPHIL # (test code = EO#) 0.16 K/mm3 BASOPHIL # (test code = BA#) 0.0 K/mm3 RBC MORPHOLOGY REQUIRED (test code NORMAL NORMAL = RBCM) PLATELET MORPHOLOGY REQUIRED (test NORMAL NORMAL code = PLTMR) [id number] 06:36:00 Test Item Value Reference Range Interpretation Comments GLUBED (test code = GLUBED) 82 mg/dL 65-110 N HGB [id number] 04:50:00 Test Item Value Reference Range Interpretation Comments HEMOGLOBIN (test code = HGB) 8.1 g/dL 10.7-13.9 L HEMATOCRIT (test code = HCT) 25.2 % 32.1-42.1 L [id number] 04:43:00 Test Item Value Reference Range Interpretation Comments GLUBED (test code = GLUBED) 98 mg/dL 65-110 N [id number] 12:00:00 Test Item Value Reference Range Interpretation Comments GLUCOSE (test code = GLU) 81 mg/dL 65-110 N AG HEPATITIS B [id number] 14:40:00 Test Item Value Reference Range Interpretation Comments AG HEPATITIS B SURFACE (test code NONREACTIVE NONREACTIVE = HBSAG) : *IS CONSENT FORM SIGNED FOR HIV TESTING? YAB HEPATITIS C [id number] 14:40:00 Test Item Value Reference Range Interpretation Comments AB HEPATITIS C (test code = NONREACTIVE NONREACTIVE HCVAB) SIGNAL TO CUTOFF (test code = 0.07 <0.80 N CUTOFF) : *IS CONSENT FORM SIGNED FOR HIV TESTING? YAB [id number] 14:40:00 Test Item Value Reference Range Interpretation Comments AB TREPONEMA (test code = TREPAB) NONREACTIVE NONREACTIVE : *IS CONSENT FORM SIGNED FOR HIV TESTING? YAB HIV 1 14:40:00 Test Item Value Reference Range Interpretation Comments AB HIV 1 2 (test NONREACTIVE NONREACTIVE Done by Pamela shay Centaur code = [id number]) 4th Gen HIV Ag/Ab Combo Screen : *IS CONSENT FORM SIGNED FOR HIV TESTING? YCOVID 19 Asymptomatic IH AG 2020-09-19 13:28:00 Test Item Value Reference Range Interpretation Comments COVID 19 NEGATIVE NEGATIVE This test has b een Asymptomatic IH AG authorize d only for the (test code = detection ofpro teins from COVNONPUIAG) SARS-CoV-2, not for any other viruses orpathogens. N egative results should be treated as presumptive andconfirmed wi th a molecular assay , if necessary for patientmanageme nt. Negative result s do not rule out COVID- 19 andshould not b e used as the sole basis for treatment orpat ient management deci sions, including infec tion controldecision s. Negative result s should be considered i n thecontext of a patient's recent exposure s, history and thepresence of clinical signs and symptoms consis tent withCOVID-19. T his test has not been FD A cleared or approved; th e test hasbeen authori zed by FDA under an Emerge ncy Use Authorization(E UA) for use by elsa galvez certified under the CLIA thatmeet the re quirements to perform mode rate, high or waivedcomple xity tests. This sheba t is authorized for use at thePoint of Car e (POC), i.e., in patien t care settingsoperati ng under a CLIA Certificat e of Waiver, Certifi ebti ofCompliance, o r Certificate of Accreditation. This test is only authori zed for the duration of thedeclaration that circumstances e xist justifying theauthorizatio n of emergency use o f in vitro diagnostic test sfor detection and/o r diagnosis of CO VID-19 under Zazshwm47 4(b)(1) of the Act, 21 U.S .C. 360bbb-3(b)(1), unless theauthorizatio n is terminated or r evoked sooner. CBC W/AUTO [id number] 13:26:00 Test Item Value Reference Range Interpretation Comments WHITE BLOOD CELL (test code = WBC) 7.1 K/mm3 6.6-12.1 N RED BLOOD CELL (test code = RBC) 3.27 M/mm3 3.45-5.01 L HEMOGLOBIN (test code = HGB) 10.0 g/dL 10.7-13.9 L HEMATOCRIT (test code = HCT) 31.3 % 32.1-42.1 L MEAN CELL VOLUME (test code = MCV) 96 fL 84.1-94.8 H MEAN CELL HGB (test code = MCH) 30.6 pg 27-35 N MEAN CELL HGB CONCETRATION (test 31.9 gm/dL 32.2-34.1 L code = MCHC) RED CELL DISTRIBUTION WIDTH (test 13.2 % 12.4-16.5 N code = RDW) PLATELET COUNT (test code = PLT) 324 K/mm3 133-385 N MEAN PLATELET VOLUME (test code = 10.1 fl 9.1-12.7 N MPV) NEUTROPHIL % (test code = NT%) 77.5 % 56.5-79.4 N LYMPHOCYTE % (test code = LY%) 14.9 % 14.3-34.3 N MONOCYTE % (test code = MO%) 6.1 % 5.1-10.4 N EOSINOPHIL % (test code = EO%) 0.8 % 0.1-3.0 N BASOPHIL % (test code = BA%) 0.3 % 0.1-1.0 N NEUTROPHIL # (test code = NT#) 5.5 K/mm3 LYMPHOCYTE # (test code = LY#) 1.1 K/mm3 MONOCYTE # (test code = MO#) 0.4 K/mm3 EOSINOPHIL # (test code = EO#) 0.06 K/mm3 BASOPHIL # (test code = BA#) 0.0 K/mm3 RBC MORPHOLOGY REQUIRED (test code NORMAL NORMAL = RBCM) PLATELET MORPHOLOGY REQUIRED (test NORMAL NORMAL code = PLTMR) POCT URINALYSIS W SPECIFIC [id number] 15:52:00 Test Item Value Reference Range Interpretation Comments POCT U SP GRAV (test code = 3255) . 1.005-1.025 POCT PH U (test code = 3254) . 5-8 POCT U LEUK EST (test code = 3263) . Negative - Negative POCT U NIT (test code = 3262) . Negative - Negative POCT U PROT (test code = 3259) Trace Negative - Negative POCT U GLU (test code = 3256) Trace Negative - Negative POCT U KETONE (test code = 3258) . Negative - Negative POCT U UROBILI (test code = 3260) . 0.2-1 POCT U BILI (test code = 3261) . Negative - Negative POCT U BLD (test code = 3257) . Negative - Negative POCT U COLOR (test code = 3266) POCT U APPEAR (test code = 3267) [facility] URINALYSIS W SPECIFIC [id number] 15:52:00 Test Item Value Reference Range Interpretation Comments POCT U SP GRAV (test code = 3255) . 1.005-1.025 POCT PH U (test code = 3254) . 5-8 POCT U LEUK EST (test code = 3263) . Negative - Negative POCT U NIT (test code = 3262) . Negative - Negative POCT U PROT (test code = 3259) Trace Negative - Negative POCT U GLU (test code = 3256) Trace Negative - Negative POCT U KETONE (test code = 3258) . Negative - Negative POCT U UROBILI (test code = 3260) . 0.2-1 POCT U BILI (test code = 3261) . Negative - Negative POCT U BLD (test code = 3257) . Negative - Negative POCT U COLOR (test code = 3266) POCT U APPEAR (test code = 3267) [facility] URINALYSIS W SPECIFIC [id number] 15:52:00 Test Item Value Reference Range Interpretation Comments POCT U SP GRAV (test code = 3255) . 1.005-1.025 POCT PH U (test code = 3254) . 5-8 POCT U LEUK EST (test code = 3263) . Negative - Negative POCT U NIT (test code = 3262) . Negative - Negative POCT U PROT (test code = 3259) Trace Negative - Negative POCT U GLU (test code = 3256) Trace Negative - Negative POCT U KETONE (test code = 3258) . Negative - Negative POCT U UROBILI (test code = 3260) . 0.2-1 POCT U BILI (test code = 3261) . Negative - Negative POCT U BLD (test code = 3257) . Negative - Negative POCT U COLOR (test code = 3266) POCT U APPEAR (test code = 3267) [facility] URINALYSIS W SPECIFIC [id number] 15:50:00 Test Item Value Reference Range Interpretation Comments POCT U SP GRAV (test code = 3255) . 1.005-1.025 POCT PH U (test code = 3254) . 5-8 POCT U LEUK EST (test code = 3263) . Negative - Negative POCT U NIT (test code = 3262) . Negative - Negative POCT U PROT (test code = 3259) Trace Negative - Negative POCT U GLU (test code = 3256) Neg Negative - Negative POCT U KETONE (test code = 3258) . Negative - Negative POCT U UROBILI (test code = 3260) . 0.2-1 POCT U BILI (test code = 3261) . Negative - Negative POCT U BLD (test code = 3257) . Negative - Negative POCT U COLOR (test code = 3266) POCT U APPEAR (test code = 3267) [facility] URINALYSIS W SPECIFIC [id number] 15:50:00 Test Item Value Reference Range Interpretation Comments POCT U SP GRAV (test code = 3255) . 1.005-1.025 POCT PH U (test code = 3254) . 5-8 POCT U LEUK EST (test code = 3263) . Negative - Negative POCT U NIT (test code = 3262) . Negative - Negative POCT U PROT (test code = 3259) Trace Negative - Negative POCT U GLU (test code = 3256) Neg Negative - Negative POCT U KETONE (test code = 3258) . Negative - Negative POCT U UROBILI (test code = 3260) . 0.2-1 POCT U BILI (test code = 3261) . Negative - Negative POCT U BLD (test code = 3257) . Negative - Negative POCT U COLOR (test code = 3266) POCT U APPEAR (test code = 3267) [facility] URINALYSIS W SPECIFIC [id number] 15:50:00 Test Item Value Reference Range Interpretation Comments POCT U SP GRAV (test code = 3255) . 1.005-1.025 POCT PH U (test code = 3254) . 5-8 POCT U LEUK EST (test code = 3263) . Negative - Negative POCT U NIT (test code = 3262) . Negative - Negative POCT U PROT (test code = 3259) Trace Negative - Negative POCT U GLU (test code = 3256) Neg Negative - Negative POCT U KETONE (test code = 3258) . Negative - Negative POCT U UROBILI (test code = 3260) . 0.2-1 POCT U BILI (test code = 3261) . Negative - Negative POCT U BLD (test code = 3257) . Negative - Negative POCT U COLOR (test code = 3266) POCT U APPEAR (test code = 3267) [facility] URINALYSIS W SPECIFIC [id number] 18:13:00 Test Item Value Reference Range Interpretation Comments POCT U SP GRAV (test code = . 1.005-1.025 A 3255) POCT PH U (test code = 3254) 5 mg/dl 5-8 POCT U LEUK EST (test code = neg Negative - Negative 3263) POCT U NIT (test code = 3262) neg Negative - Negative POCT U PROT (test code = 3259) trace Negative - Negative POCT U GLU (test code = 3256) normal Negative - Negative POCT U KETONE (test code = 3258) neg Negative - Negative POCT U UROBILI (test code = neg 0.2-1 3260) POCT U BILI (test code = 3261) neg Negative - Negative POCT U BLD (test code = 3257) neg Negative - Negative POCT U COLOR (test code = 3266) POCT U APPEAR (test code = 3267) Lab Interpretation (test code = Abnormal 45392-0) [facility] [id number] 21:14:00 Test Item Value Reference Range Interpretation Comments POCT U SP GRAV (test code = . 1.005-1.025 3255) POCT PH U (test code = 3254) . 5-8 POCT U LEUK EST (test code = . Negative - Negative 3263) POCT U NIT (test code = 3262) . Negative - Negative POCT U PROT (test code = 3259) trace Negative - Negative POCT U GLU (test code = 3256) negative Negative - Negative POCT U KETONE (test code = 3258) . Negative - Negative POCT U UROBILI (test code = . 0.2-1 3260) POCT U BILI (test code = 3261) . Negative - Negative POCT U BLD (test code = 3257) . Negative - Negative POCT U COLOR (test code = 3266) POCT U APPEAR (test code = 3267) [facility], BLOOD [id number] 07:50:47 Test Item Value Reference Range Interpretation Comments ABO & RH (test code O POSITIVE Performe d at [facility] = 20) Laboratory Serv [facility] Blood Bank3 [facility] s [id number] Free: [phone] A No. [id number] IAT (test code = Negative Performed a t [facility] 1185) Laboratory Serv [facility] Blood Bank3 [facility] s [id number] Free: [phone] A No. [id number] [facility]-AB WITH [id number] 06:35:00 Test Item Value Reference Range Interpretation Comments HIV Negative Negative Semi-quantitative (test code = 22136-1) TERRELL (test code = Non-reactive for HIV-1 TERRELL) antigen and HIV-1/HIV-2 antibodies. ?No laboratory evidence of HIV infection. ?Repeat in 2-4 weeks if acute HIV infection is suspected. [facility] SURFACE [id number] 05:34:00 Test Item Value Reference Range Interpretation Comments HBsAg Semi-Quantitative (test code = Negative Negative 5195-3) [facility] H[facility] [id number] 05:05:00 Test Item Value Reference Range Interpretation Comments GLUC 1 HR (test code = 5301149012) 98 mg/dL 120-170 L Lab Interpretation (test code = Abnormal 44765-6) [facility]CBC WITH [id number] 04:35:00 Test Item Value Reference Range Interpretation Comments WBC (test code = See_Comment [Automated 0690-2) message] The sy stem which generated this result transmitted reference range : 4.30 - 11.10 10*3/?L. The reference range was not used to interpret this result as normal/abnormal . RBC (test code = See_Comment L [Automated 399-8) message] The sy stem which generated this result transmitted reference range : 3.93 - 5.25 10*6/?L. The reference range was not used to interpret this result as normal/abnormal . HGB (test code = 12.5 g/dL 11.6-15 718-7) HCT (test code = 37.2 % 35.7-45.2 4544-3) MCV (test code = 97.6 fL 80.6-95.5 H 787-2) MCH (test code = 32.8 pg 25.9-32.8 785-6) MCHC (test code = 33.6 g/dL 31.6-35.1 786-4) RDW-SD (test code = 43.6 fL 39-49.9 72433-1) RDW-CV (test code = 12.1 % 12-15.5 788-0) PLT (test code = See_Comment [Automated 777-3) message] The sy stem which generated this result transmitted reference range : 166 - 358 10*3/ ?L. The reference r marleen was not used to interpret this result as normal/abnormal . MPV (test code = 9.9 fL 9.5-12.9 91642-6) NRBC/100 WBC (test See_Comment [Automat ed code = [id number]) message] The system which generated this result transmitted reference range : 0.0 - 10.0 /100 WBCs. The refer ence range was not u sed to interpret th is result as normal/abnormal . NRBC x10^3 (test code <0.01 See_Comment [Auto mated = [id number]) message] The s ystem which generated this result transmitted reference range : 10*3/?L. The reference range was not used to interpret this result as normal/abnormal . GRAN MAT (NEUT) % 68.9 % (test code = 770-8) IMM GRAN % (test code 0.10 % = 8174019071) LYMPH % (test code = 19.7 % 736-9) MONO % (test code = 8.6 % 5905-5) EOS % (test code = 1.8 % 713-8) BASO % (test code = 0.9 % 706-2) GRAN MAT x10^3(ANC) 4.62 10*3/uL 1.88-7.09 (test code = 2457028503) IMM GRAN x10^3 (test <0.03 0-0.06 code = 5017466567) LYMPH x10^3 (test code 1.32 10*3/uL 1.32-3.29 = 731-0) MONO x10^3 (test code 0.58 10*3/uL 0.33-0.92 = 742-7) EOS x10^3 (test code = 0.12 10*3/uL 0.03-0.39 711-2) BASO x10^3 (test code 0.06 10*3/uL 0.01-0.07 = 704-7) Lab Interpretation Abnormal (test code = 38826-5) [facility] URINALYSIS W SPECIFIC [id number] 15:34:00 Test Item Value Reference Range Interpretation Comments POCT U SP GRAV (test code = . 1.005-1.025 3255) POCT PH U (test code = 3254) 7 mg/dl 5-8 POCT U LEUK EST (test code = trace Negative - Negative 3263) POCT U NIT (test code = 3262) negative Negative - Negative POCT U PROT (test code = 3259) trace Negative - Negative POCT U GLU (test code = 3256) trace Negative - Negative POCT U KETONE (test code = 3258) negatvie Negative - Negative POCT U UROBILI (test code = . 0.2-1 3260) POCT U BILI (test code = 3261) . Negative - Negative POCT U BLD (test code = 3257) trace Negative - Negative POCT U COLOR (test code = 3266) POCT U APPEAR (test code = 3267) [facility] [id number] 15:34:00 Test Item Value Reference Range Interpretation Comments POCT PREG (test code = 1605) Positive On board controls acceptable with C Yes Line (test code = 3574) POCT PREG LOT # (test code = 3575) POCT PREG TEST DATE (test code = 3576) [facility] URINALYSIS W SPECIFIC [id number] 15:34:00 Test Item Value Reference Range Interpretation Comments POCT U SP GRAV (test code = . 1.005-1.025 3255) POCT PH U (test code = 3254) 7 mg/dl 5-8 POCT U LEUK EST (test code = trace Negative - Negative 3263) POCT U NIT (test code = 3262) negative Negative - Negative POCT U PROT (test code = 3259) trace Negative - Negative POCT U GLU (test code = 3256) trace Negative - Negative POCT U KETONE (test code = 3258) negatvie Negative - Negative POCT U UROBILI (test code = . 0.2-1 3260) POCT U BILI (test code = 3261) . Negative - Negative POCT U BLD (test code = 3257) trace Negative - Negative POCT U COLOR (test code = 3266) POCT U APPEAR (test code = 3267) [facility] [id number] 15:34:00 Test Item Value Reference Range Interpretation Comments POCT PREG (test code = 1605) Positive On board controls acceptable with C Yes Line (test code = 3574) POCT PREG LOT # (test code = 3575) POCT PREG TEST DATE (test code = 3576) [facility]IFIC [id number] 15:34:00 Test Item Value Reference Range Interpretation Comments POCT U SP GRAV (test code = . 1.005-1.025 3255) POCT PH U (test code = 3254) 7 mg/dl 5-8 POCT U LEUK EST (test code = trace Negative - Negative 3263) POCT U NIT (test code = 3262) negative Negative - Negative POCT U PROT (test code = 3259) trace Negative - Negative POCT U GLU (test code = 3256) trace Negative - Negative POCT U KETONE (test code = 3258) negatvie Negative - Negative POCT U UROBILI (test code = . 0.2-1 3260) POCT U BILI (test code = 3261) . Negative - Negative POCT U BLD (test code = 3257) trace Negative - Negative POCT U COLOR (test code = 3266) POCT U APPEAR (test code = 3267) [facility] [id number] 15:34:00 Test Item Value Reference Range Interpretation Comments POCT PREG (test code = 1605) Positive On board controls acceptable with C Yes Line (test code = 3574) POCT PREG LOT # (test code = 3575) POCT PREG TEST DATE (test code = 3576) [facility]
[2022-02-17] MEDS ORDERED: ONDANSETRON 4 MG (ODT) TAB ONE (05:34)
[2022-02-17] MEDS ORDERED: FAMOTIDINE 20 MG/2 ML VIAL IV ONE (05:42)
[2022-02-17] MEDS ORDERED: NA CHLORIDE 0.9% 1,000 ML ONE (05:42)
[2022-02-17 05:57] LABS: Absolute Lymphocytes (CBC) 1.1 K/uL (0.7-4.9); Hematocrit 38.1 % (36.0-45.0); Lymphocytes % 11.5 % (15.3-44.8); MPV 7.3 fL (7.6-11.3); RBC Red Blood Cell Count 4.22 M/uL (3.86-4.86)
[2022-02-17] MEDS ORDERED: MORPHINE 4 MG/ML SYR ONE (06:00)
[2022-02-17 06:07] LABS: Urine Blood Trace-intact (Negative); Urine Glucose Negative (Negative); Urine Protein Negative (Negative); Urine Specific Gravity 1.025 (1.005-1.030)
[2022-02-17 06:17] LABS: ALT/SGPT 41 U/L (12-78); AST/SGOT 22 U/L (15-37); Albumin 3.4 g/dL (3.4-5.0); Alkaline Phosphatase 80 U/L (45-117); BUN Blood Urea Nitrogen 10 mg/dL (7-18); Bicarbonate 28 mmol/L (21-32); Bilirubin Total 0.4 mg/dL (0.2-1.0); Glucose Level 118 mg/dL (74-106); Lipase 127 U/L (73-393); Potassium 3.8 mmol/L (3.5-5.1); Protein, Total 7.1 g/dL (6.4-8.2); Sodium Level 137 mmol/L (136-145)
[2022-02-17 06:22] LABS: Urine Bacteria <20 /HPF (<20); Urine RBC <5 /HPF (NONE SEEN)
--- NOTE | 2022-02-17 07:22 | RAD REPORT ---
EXAM DESCRIPTION: CTAbdomen Pelvis W Contrast - 02/17/2022 7:03 am CLINICAL HISTORY: Abdominal pain, acute, nonlocalized COMPARISON: No comparisons TECHNIQUE: CT of the abdomen and pelvis was performed. All CT scans are performed using dose optimization technique as appropriate and may include automated exposure control or mA/KV adjustment according to patient size. FINDINGS: Lower chest: No acute abnormality. Liver: Hepatic steatosis. Biliary: No biliary ductal dilatation. Stomach: No significant focal abnormality. Duodenum: No significant focal abnormality. Pancreas: No significant abnormality. Spleen: No significant abnormality. Adrenal: No suspicious lesions. Kidney/ureter: Mild bilateral hydronephrosis. Punctate bilateral renal calculi. No ureteral calculi. Retroperitoneum: No retroperitoneal adenopathy. Vascular: No aneurysm. Bowel: Multiple air-fluid levels present within small bowel. No discrete transition point. The append ix is normal.. Peritoneum: No ascites or free air. Bladder: Grossly unremarkable. Reproductive: IUD. Bones: No acute fracture. Other: n/a IMPRESSION: 1. Fluid distended small bowel and colon could represent a gastroenteritis or malabsorpt bipin process. No bowel obstruction. Normal appendix. 2. Mild hydronephrosis bilaterally but no obstructing stone or mass. Bilateral ascending urinary trac t infections is a consideration. Correlate with urinalysis.
[2022-02-17 07:37] LABS: Urine Specific Gravity/Preg 1.025 (1.005-1.030)
--- NOTE | 2022-02-17 08:53 | EDPHYS ---
Physician Documentation [facility] Name: Kasey Levy Age: 26 yrs Sex: Female : 1995 Arrival Date: 02/17/2022 Time: 04:21 Bed 4 Private MD: ED Physician Coy Boland HPI: 02/17 05:40 This 26 yrs old Female presents to ER via EMS with complaints of Abdominal Pain. mh7 05:40 The patient presents with abdominal pain in the epigastric area. Onset: The mh7 symptoms/episode began/occurred yesterday. The symptoms do not radiate. Associated signs and symptoms: Pertinent positives: diarrhea, nausea, Pertinent negatives: anorexia, blood in stools, chest pain, constipation, dysuria, fever, headache, hematuria, palpitations, shortness of breath, vaginal discharge, vomiting, vomiting blood. The symptoms are described as intermittent, vague, waxing/waning. Modifying factors: The symptoms are alleviated by nothing, the symptoms are aggravated by nothing. Severity of pain: At its worst the pain was moderate yesterday, in the emergency department the pain is unchanged. 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 - Social history:: Smoking status: Patient denies any tobacco usage or history of. ROS: 05:40 Constitutional: Negative for fever, chills, and weight loss, Eyes: Negative for injury, mh7 pain, redness, and discharge, ENT: Negative for injury, pain, and discharge, Neck: Negative for injury, pain, and swelling, Cardiovascular: Negative for chest pain, palpitations, and edema, Respiratory: Negative for shortness of breath, cough, wheezing, and pleuritic chest pain, Back: Negative for injury and pain, : Negative for injury, bleeding, discharge, and swelling, MS/Extremity: Negative for injury and deformity, Skin: Negative for injury, rash, and discoloration, Neuro: Negative for headache, weakness, numbness, tingling, and seizure, Psych: Negative for depression, anxiety, suicide ideation, homicidal ideation, and hallucinations, Allergy/Immunology: Negative for hives, rash, and allergies, Endocrine: Negative for neck swelling, polydipsia, polyuria, polyphagia, and marked weight changes, Hematologic/Lymphatic: Negative for swollen nodes, abnormal bleeding, and unusual bruising. Exam: 05:40 Head/Face: Normocephalic, atraumatic. Eyes: Pupils equal round and reactive to light, mh7 extra-ocular motions intact. Lids and lashes normal. Conjunctiva and sclera are non-icteric and not injected. Cornea within normal limits. Periorbital areas with no swelling, redness, or edema. Neck: Trachea midline, no thyromegaly or masses palpated, and no cervical lymphadenopathy. Supple, full range of motion without nuchal rigidity, or vertebral point tenderness. No Meningismus. Chest/axilla: Normal chest wall appearance and motion. Nontender with no deformity. No lesions are appreciated. Cardiovascular: Regular rate and rhythm with a normal S1 and S2. No gallops, murmurs, or rubs. Normal PMI, no JVD. No pulse deficits. Respiratory: Lungs have equal breath sounds bilaterally, clear to auscultation and percussion. No rales, rhonchi or wheezes noted. No increased work of breathing, no retractions or nasal flaring. 05:40 Back: No spinal tenderness. No costovertebral tenderness. Full range of motion. Skin: Warm, dry with normal turgor. Normal color with no rashes, no lesions, and no evidence of cellulitis. MS/ Extremity: Pulses equal, no cyanosis. Neurovascular intact. Full, normal range of motion. Neuro: Awake and alert, GCS 15, oriented to person, place, time, and situation. Cranial nerves II-XII grossly intact. Motor strength 5/5 in all extremities. Sensory grossly intact. Cerebellar exam normal. Normal gait. Psych: Awake, alert, with orientation to person, place and time. Behavior, mood, and affect are within normal limits. 05:40 Constitutional: The patient appears in no acute distress, alert, awake, uncomfortable. 05:40 Abdomen/GI: Inspection: obese Bowel sounds: normal, in all quadrants, Palpation: moderate abdominal tenderness, in the epigastric area, mass, is not appreciated, rebound tenderness, is not appreciated, voluntary guarding, is not appreciated, involuntary guarding, is not appreciated, no appreciated organomegaly, Rectal exam: the exam is deferred, because of patient request, Indicators: McBurney's point is not tender, Tellez's sign is negative, Rovsing's sign is negative, Obturator sign is negative, Psoas sign is negative, Liver: no appreciated palpable abnormalities, Hernia: not appreciated. Vital Signs: 04:25 BP 128 / 111; Pulse 92; Resp 20 S; Temp 98.0(O); Pulse Ox 100% on R/A; Weight 102.51 kg as6 (R); Height 5 ft. 7 in. (170.18 cm) (R); Pain 6/10; 06:09 BP 130 / 85; Pulse 86; Resp 13 A; Pulse Ox 98% on R/A; as6 08:00 BP 118 / 73; Pulse 105; Resp 18 S; Pulse Ox 99% on R/A; aa5 09:09 BP 119 / 80; Pulse 100; Resp 18; Pulse Ox 100% ; bp 04:25 Body Mass Index 35.40 (102.51 kg, 170.18 cm) as6 MDM: 07:32 Patient medically screened. margarita 08:48 Differential diagnosis: bowel obstruction, Cholelithiasis, diverticulitis, gastritis, margarita non-specific abd pain, pancreatitis, Peptic Ulcer Disease, Pyelonephritis, urinary tract infection. Data reviewed: vital signs, nurses notes, lab test result(s), radiologic studies, CT scan. 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 rate is 105 beats/min, rhythm is regular, Pulse oximetry: on room air is 99 %. Test interpretation: by ED physician or midlevel provider:. Counseling: I had a detailed discussion with the patient and/or guardian regarding: the historical points, exam findings, and any diagnostic results supporting the discharge/admit diagnosis, lab results, radiology results, the need for outpatient follow up, for definitive care, a family practitioner. 02/17 05:31 Order name: CBC with Diff; Complete Time: 06:49 mh7 02/17 05:31 Order name: CMP; Complete Time: 06:49 mh7 02/17 05:31 Order name: Lipase; Complete Time: 06:49 mh7 02/17 05:31 Order name: Urine Microscopic Only; Complete Time: 06:49 mh7 02/17 06:07 Order name: Urine Dipstick-Ancillary; Complete Time: 06:49 EDMS 02/17 06:13 Order name: Urine --Ancillary (enter results); Complete Time: 08:46 2 02/17 05:31 Order name: IV Saline Lock; Complete Time: 05:32 mh7 02/17 05:31 Order name: Labs collected and sent; Complete Time: 05:52 mh7 02/17 05:31 Order name: Urine Dipstick-Ancillary (obtain specimen); Complete Time: 06:07 7 02/17 05:39 Order name: CT Abd/Pelvis - IV Contrast Only; Complete Time: 08:46 7 02/17 05:31 Order name: Urine Test (obtain specimen); Complete Time: 06:07 mh7 Administered Medications: 05:31 Drug: Ondansetron 4 mg Route: PO; lg3 05:31 Follow up: Response: No adverse reaction lg3 05:53 Drug: NS 0.9% 1000 ml Route: IV; Rate: 1 bolus; Site: right antecubital; as6 09:10 Follow up: IV Status: Completed infusion; IV Intake: 1000ml bp 05:53 Drug: Pepcid (famotidine) 20 mg Route: IVP; Site: right antecubital; as6 07:04 Follow up: Response: No adverse reaction lg3 06:07 Drug: morphine 4 mg Route: IVP; Site: right antecubital; as6 07:04 Follow up: Response: No adverse reaction; RASS: Alert and Calm (0) lg3 Disposition Summary: 02/17/22 08:52 Discharge Ordered Location: Home margarita Problem: new margarita Symptoms: have improved margarita Condition: Stable margarita Diagnosis - Vomiting margarita - Diarrhea, unspecified magrarita - Abdominal pain, Generalized margarita - Noninfective gastroenteritis and colitis, unspecified margarita Followup: margarita - With: Private Physician - When: 2 - 3 days - Reason: Recheck today's complaints, Continuance of care, Re-evaluation by your physician Discharge Instructions: - Discharge Summary Sheet margarita - Food Choices to Help Relieve Diarrhea, Adult margarita - Diarrhea, Adult margarita - Abdominal Pain, Adult, [id number] margarita - Vomiting, Adult margarita Forms: - Medication Reconciliation Form margarita - Thank You Letter margarita - Antibiotic Education margarita - Prescription Opioid Use margarita - Work release form [facility] Prescriptions: - Zofran 4 mg Oral Tablet - take 1 tablet by ORAL route every 12 hours As needed; 20 tablet; Refills: 0, [facility] Product Selection Permitted - promethazine 25 mg Oral Tablet - take 1 tablet by ORAL route every 6 hours As needed; 20 tablet; Refills: 0, [facility] Product Selection Permitted - dicyclomine 20 mg Oral Tablet - take 1 tablet by ORAL route 4 times per day; 28 tablet; Refills: 0, Product [facility] Selection Permitted Signatures: Dispatcher [employer] Coy Lopez MD MD cha Gibson, Lacie RN RN lg3 Luis White MD MD mh7 Brian Polk RN RN as6 Schuyler Bautista RN bp
--- NOTE | 2022-02-17 08:53 | ER ---
Nurse's Notes [facility] Name: Kasey Levy Age: 26 yrs Sex: Female : 1995 Arrival Date: 02/17/2022 Time: 04:21 Bed 4 Private MD: Diagnosis: Vomiting;Diarrhea, unspecified;Abdominal pain, Generalized;Noninfective gastroenteritis and colitis, unspecified Presentation: 02/17 04:25 Chief complaint: EMS states: pt reports epigastric pain, nausea, diarrhea. Coronavirus as6 screen: At this time, the client does not indicate any symptoms associated with coronavirus-19. Ebola Screen: No symptoms or risks identified at this time. Initial Sepsis Screen: Does the patient meet any 2 criteria? No. Patient's initial sepsis screen is negative. Does the patient have a suspected source of infection? No. Patient's initial sepsis screen is negative. Risk Assessment: Do you want to hurt yourself or someone else? Patient reports no desire to harm self or others. Onset of symptoms was February 16, 2022 at 21:00. Care prior to arrival: IV initiated. 20 GA, in the left antecubital area. 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 - Social history:: Smoking status: Patient denies any tobacco usage or history of. Screenin:27 Abuse screen: Denies threats or abuse. Denies injuries from another. Nutritional as6 screening: No deficits noted. Tuberculosis screening: No symptoms or risk factors identified. Fall Risk None identified. Assessment: 04:28 General: Appears in no apparent distress. Behavior is calm, cooperative. Pain: as6 Complains of pain in epigastric area. Neuro: Level of Consciousness is awake, alert, obeys commands, Oriented to person, place, time, situation. Cardiovascular: Capillary refill < 3 seconds Patient's skin is warm and dry. Respiratory: Airway is patent Trachea midline Respiratory effort is even, unlabored, Respiratory pattern is regular, symmetrical. GI: Reports upper abdominal pain, diarrhea, nausea. 07:30 Reassessment: Patient is alert, oriented x 3, equal unlabored respirations, skin aa5 warm/dry/pink. Patient states symptoms have not improved. Pt c/o chest pain 7/10 on a pain scale. Pt back from CT scan, awaiting results. . 09:09 Reassessment: PT D/C HOME AMBULATORY, DX WITH GASTROENTERITIS AND COLITIS. bp Vital Signs: 04:25 BP 128 / 111; Pulse 92; Resp 20 S; Temp 98.0(O); Pulse Ox 100% on R/A; Weight 102.51 kg as6 (R); Height 5 ft. 7 in. (170.18 cm) (R); Pain 6/10; 06:09 BP 130 / 85; Pulse 86; Resp 13 A; Pulse Ox 98% on R/A; as6 08:00 BP 118 / 73; Pulse 105; Resp 18 S; Pulse Ox 99% on R/A; aa5 09:09 BP 119 / 80; Pulse 100; Resp 18; Pulse Ox 100% ; bp 04:25 Body Mass Index 35.40 (102.51 kg, 170.18 cm) as6 ED Course: 04:21 Patient arrived in ED. vc1 04:25 Brian Polk, RN is Primary Nurse. as6 04:27 Triage completed. as6 04:27 Arm band placed on. as6 04:27 Placed in gown. Bed in low position. Call light in reach. Side rails up X2. Cardiac as6 monitor on. Pulse ox on. NIBP on. Warm blanket given. 04:28 Maintain EMS IV. Dressing intact. Good blood return noted. Site clean \T\ dry. Gauge \T\ as 6 site: 20g RAC. 04:31 Luis White MD is Attending Physician. mh7 07:05 CT Abd/Pelvis - IV Contrast Only In Process Unspecified. EDMS 07:32 Attending Physician role handed off by Luis White MD margarita 07:32 Coy Boland MD is Attending Physician. margarita 09:09 No provider procedures requiring assistance completed. IV discontinued, intact, bp bleeding controlled, No redness/swelling at site. Pressure dressing applied. Administered Medications: 05:31 Drug: Ondansetron 4 mg Route: PO; lg3 05:31 Follow up: Response: No adverse reaction lg3 05:53 Drug: NS 0.9% 1000 ml Route: IV; Rate: 1 bolus; Site: right antecubital; as6 09:10 Follow up: IV Status: Completed infusion; IV Intake: 1000ml bp 05:53 Drug: Pepcid (famotidine) 20 mg Route: IVP; Site: right antecubital; as6 07:04 Follow up: Response: No adverse reaction lg3 06:07 Drug: morphine 4 mg Route: IVP; Site: right antecubital; as6 07:04 Follow up: Response: No adverse reaction; RASS: Alert and Calm (0) lg3 Intake: 09:10 IV: 1000ml; Total: 1000ml. bp Outcome: 08:52 Discharge ordered by . margarita 09:09 Discharged to home ambulatory. bp 09:09 Condition: stable 09:09 Discharge instructions given to patient, Instructed on discharge instructions, follow up and referral plans. medication usage, Demonstrated understanding of instructions, follow-up care, medications, Prescriptions given X 3. 09:10 Patient left the ED. bp Signatures: Dispatcher [employer] EDMS Coy Boland MD MD cha Calderon, Audri, RN RN aa5 Schuyler Bautista RN RN Keli Ly RN RN lg3 Luis White MD MD mh7 Brian oPlk RN RN as6 Leticia Amor RN RN vc1
[2022-02-17 13:25] VITALS: TEMP 98
[2022-02-17 13:29] VITALS: BP 119/80; O2SAT 100
== END 2022-02-17 09:10 | disposition home or self-care (01) ==
LOC: ER 04:19
DX: K52.9 Noninfective gastroenteritis and colitis, unspecified (principal); R10.84 Generalized abdominal pain; R11.10 Vomiting, unspecified; R19.7 Diarrhea, unspecified
CPT/HCPCS: 96361; 85025; 36415; 81025; 83690; 80053; 74177; 96375; 96374; 99284; Q9967; J7030; J3490; 81003; 81015

== ENCOUNTER 2022-09-03 20:09 | Emergency (ER) | payer OTHER ==
--- OUTSIDE RECORDS SUMMARY | 2022-09-03 20:15 | XMS REPORT | Continuity of Care Document ---
:1995 Author Organization [facility] t Address [address] [place] [address] Care Team Providers Name Role Phone Deb Rider Primary Care Physician LOY NIELSON Attending Clinician Unavailable Jeremiah Fenton Attending Clinician Unavailable DILEEP SAUNDERS Attending Clinician Unavailable EKALLISESHAW Attending Clinician Unavailable Ebony Chan Attending Clinician Unavailable JOSE WATT Attending Clinician Unavailable ANNIE ELLIOTT Attending Clinician Unavailable Visit, Nirmalcheddie Nurse Attending Clinician Unavailable Annie Giraldo Attending Clinician Lab, Analilia Attending Clinician Unavailable Ultrasound, OrinMftank Attending Clinician Unavailable Kraig Kan MD Attending Clinician Doctor Unassigned, Selby Attending Clinician Unavailable FELICITAS VUONG Attending Clinician Unavailable Risk, Spj-Aikut-Ph/High Attending Clinician Unavailable Felicitas Rausch Attending Clinician Jeremiah Fenton Admitting Clinician Unavailable KNOW, DOES_NOT Admitting Clinician Unavailable Payers Payer Name Policy Type Policy Number Effective Date Expiration Date [facility] MEDICAID STAR [id number] 2020 00:00:00 [facility] [id number] 2020 [facility] STAR 00:00:00 MEDICAID OF [place] [id number] 2020 00:00:00 Problems Condition Condition Condition Status Onset Resolution Last Treating Co mments Source Name Details Category Date Date Treatment Clinician Date E66.01 E66.01 Diagnosis Active 2021-102022-09-03 Me moria Active 0-12 12:43:00 l 08/11/2022 00:00: Christian anderson 00 [facility] Adult ADHD Adult ADHD Disease Active 2020-0 U nivers 5-28 ity of 00:00: [place] 00 Medical Branch Congestion Congestion Disease Active 2020-0 U nivers of nasal of nasal 5-12 ity of sinus sinus 00:00: [place] 00 Medical Branch Attention Attention Disease Active 2020-0 Uni vers deficit deficit 5-12 [place] hyper[place] Medical disorder disorder Branch (ADHD), (ADHD), unspecifie unspecifie d ADHD d ADHD type type Maternal Maternal Disease Active 2019-0 Overview: Un sky varicella, varicella, 4-16 Will it y of non-immune non[place]immune [place] [facility] Branch m. Supervisio Supervisio Disease Active 2020-0 U nivers n of high n of high 4-15 ity of risk risk 00:00: [place] , , 00 Me dical antepartum antepartum Br anch Previous Previous Disease Active 2020-0 Unive rs 4-15 ity of delivery delivery 00:00: [place] affecting affecting 00 Medi michael , , Br anch antepartum antepartum Multiparit Multiparit Disease Active 2020-0 U nivers y y 4-15 ity of 00:00: [place] 00 Medical Branch Ear pain, Ear pain, Disease Active 2020-0 Uni vers bilateral bilateral 4-15 ity of 00:00: [place] 00 Medical Branch Obesity in Obesity in Disease Active 2020-0 U nivers 4-15 ity of 00:00: [place] 00 Medical Branch Allergies, Adverse Reactions, Alerts Allergy Allergy Status Severity Reaction(s) Onset Inactive Treating Comm ents Source Name Type Date Date Clinician No Known DA Active U [facility] [place] No Known DA Active U 2019- [facility] 30 [facility] 00:[facility]: [facility] No Known DA Active U 2019- [facility]ie 30 [facility] 00:00: [facility] No Known DA Active U 2019- [facility]ie - [facility] 00:00: [facility] No Known DA Active U 2019- [facility] Allergie 24 [facility] 00:00: [facility] NO KNOWN Drug Active Univers ALLERGIE Class ity of S [facility] Social History Social Habit Start Date Stop Date Quantity Comments Source ASSERTION 2020-01-08 University 00:00:00 [facility] History [facility] Alcohol Frequency History [facility] Alcohol Std Drinks History [facility] Alcohol Binge History of Passive smoker [facility] tobacco use Exposure to Not sure [facility]-CoV-2 [facility] (event) [place] Tobacco use and 2022-06-29 2022-06-29 Smokeless tobacco [facility] exposure 00:00:00 00:00:00 non-user Alcohol intake 2022-06-29 2022-06-29 .14 /d [facility] 00:00:00 00:00:00 Alcohol Comment 2022-06-29 2022-06-29 vodka [facility] 00:00:00 00:00:00 Sex Assigned At [birth year] [facility] 00:00:00 00:00:00 Smoking Status Start Date Stop Date Source Unknown if ever smoked [facility] Never smoked tobacco [facility] Medications Ordered Filled Start Stop Current Ordering Indication Dosage Frequency Signature Comments Components Source Medication Medication Date Date Medication? Clinician (SIG) Name Name amphetamine Yes [place] -dextroamph 06-08 Health etamine 00:00: (Adderall) 00 30 MG tablet propranolol Yes [place] (Inderal) 05-28 Health 10 MG 00:00: tablet 00 Blood-Gluco Yes [id number] Use as Univers se Meter 06-23 directed ity of (FREESTYLE 00:00: [place] LITE METER) Medical Kit [place] blood sugar Yes [id number] Use as Univers diagnostic 8 directed ity o f (FREESTYLE 00:00: [place] LITE 00 Medical STRIPS) Branch strip lancets 17 2020-0 Yes [id number] Use as U nivers gauge Misc 8-24 directed ity o f 00:00: [place] 00 Medical Branch Blood-Gluco 2020-0 Yes [id number] Use as Univers se Meter 8-24 directed ity of (FREESTYLE 00:00: [place] LITE METER) 00 Medical Kit Branch blood sugar 2020-0 Yes [id number] Use as Univers diagnostic 8-24 directed ity o f (FREESTYLE 00:00: [place] LITE 00 Medical STRIPS) Branch strip lancets 17 2020-0 Yes [id number] Use as U nivers gauge Misc 8-24 directed ity o f 00:00: [place] 00 Medical Branch Blood-Gluco 2020-0 Yes [id number] Use as Univers se Meter 8-24 directed ity of (FREESTYLE 00:00: [place] LITE METER) 00 Medical Kit Branch blood sugar 2020-0 Yes [id number] Use as Univers diagnostic 8-24 directed ity o f (FREESTYLE 00:00: [place] LITE 00 Medical STRIPS) Branch strip lancets 17 2020-0 Yes [id number] Use as U nivers gauge Misc 8-24 directed ity o f 00:00: [place] 00 Medical Branch Blood-Gluco 2020-0 Yes [id number] Use as Univers se Meter 8-24 directed ity of (FREESTYLE 00:00: [place] LITE METER) 00 Medical Kit Branch blood sugar 2020-0 Yes [id number] Use as Univers diagnostic 8-24 directed ity o f (FREESTYLE 00:00: [place] LITE 00 Medical STRIPS) Branch strip lancets 17 2020-0 Yes [id number] Use as U nivers gauge Misc 8-24 directed ity o f 00:00: [place] 00 Medical Branch colistin-ne 2020-0 Yes [id number] 1[drp] Place 1 Univers omycin-hc-t 4-15 Drop in ity o f honzonium 00:00: both ears Dave as (CORTISPORI 00 4 (four) Medi michael N-TC) times Branch 3.3-3-10-0. daily. 5 mg/mL otic drops 2020-0 Yes [id number] 1{packe Take 1 Univers vit 4-15 t} Packet by ity of 33-iron-fol 00:00: mouth [place] ic-dha 00 daily. Medical (SELECT-OB Branch + DHA) 29 mg iron-1 mg -250 mg combo pack colistin-ne 2020-0 Yes [id number] 1[drp] Place 1 Univers omycin-hc-t 4-15 Drop in ity o f [place] 00:00: both ears Dave as (CORTISPORI 00 4 (four) Medi michael N-TC) times Branch 3.3-3-10-0. daily. 5 mg/mL otic drops 2020-0 Yes [id number] 1{packe Take 1 Univers vit 4-15 t} Packet by ity of 33-iron-fol 00:00: mouth [place] ic-dha 00 daily. Medical (SELECT-OB Branch + DHA) 29 mg iron-1 mg -250 mg combo pack colistin-ne 2020-0 Yes [id number] 1[drp] Place 1 Univers omycin-hc-t 4-15 Drop in ity o f [place] 00:00: both ears Dave as (CORTISPORI 00 4 (four) Medi michael N-TC) times Branch 3.3-3-10-0. daily. 5 mg/mL otic drops 2020-0 Yes [id number] 1{packe Take 1 Univers vit 4-15 t} Packet by ity of 33-iron-fol 00:00: mouth [place] ic-dha 00 daily. Medical (SELECT-OB Branch + DHA) 29 mg iron-1 mg -250 mg combo pack colistin-ne 2020-0 Yes [id number] 1[drp] Place 1 Univers omycin-hc-t 4-15 Drop in ity o f [place] 00:00: both ears Dave as (CORTISPORI 00 4 (four) Medi michael N-TC) times Branch 3.3-3-10-0. daily. 5 mg/mL otic drops 2020-0 Yes [id number] 1{packe Take 1 Univers vit 4-15 t} Packet by ity of 33-iron-fol 00:00: mouth [place] ic-dha 00 daily. Medical (SELECT-OB Branch + DHA) 29 mg iron-1 mg -250 mg combo pack colistin-ne 2020-0 Yes [id number] 1[drp] Place 1 Univers omycin-hc-t 4-15 Drop in ity o f [place] 00:00: both ears Dave as (CORTISPORI 00 4 (four) Medi michael N-TC) times Branch 3.3-3-10-0. daily. 5 mg/mL otic drops 2020-0 Yes [id number] 1{packe Take 1 Univers vit 4-15 t} Packet by ity of 33-iron-fol 00:00: mouth [place] ic-dha 00 daily. Medical (SELECT-OB Branch + DHA) 29 mg iron-1 mg -250 mg combo pack colistin-ne 2020-0 Yes [id number] 1[drp] Place 1 Univers omycin-hc-t 4-15 Drop in ity o f [place] 00:00: both ears Dave as (CORTISPORI 00 4 (four) Medi michael N-TC) times Branch 3.3-3-10-0. daily. 5 mg/mL otic drops 2020-0 Yes [id number] 1{packe Take 1 Univers vit 4-15 t} Packet by ity of 33-iron-fol 00:00: mouth [place] ic-dha 00 daily. Medical (SELECT-OB Branch + DHA) 29 mg iron-1 mg -250 mg combo pack colistin-ne 2020-0 Yes [id number] 1[drp] Place 1 Univers omycin-hc-t 4-15 Drop in ity o f [place] 00:00: both ears Dave as (CORTISPORI 00 4 (four) Medi michael N-TC) times Branch 3.3-3-10-0. daily. 5 mg/mL otic drops 2020-0 Yes [id number] 1{packe Take 1 Univers vit 4-15 t} Packet by ity of 33-iron-fol 00:00: mouth [place] ic-dha 00 daily. Medical (SELECT-OB Branch + DHA) 29 mg iron-1 mg -250 mg combo pack colistin-ne 2020-0 Yes [id number] 1[drp] Place 1 Univers omycin-hc-t 4-15 Drop in ity o f [place] 00:00: both ears Dave as (CORTISPORI 00 4 (four) Medi michael N-TC) times Branch 3.3-3-10-0. daily. 5 mg/mL otic drops 2020-0 Yes [id number] 1{packe Take 1 Univers vit 4-15 t} Packet by ity of 33-iron-fol 00:00: mouth [place] ic-dha 00 daily. Medical (SELECT-OB Branch + DHA) 29 mg iron-1 mg -250 mg combo pack colistin-ne 2020-0 Yes [id number] 1[drp] Place 1 Univers omycin-hc-t 4-15 Drop in ity o f [place] 00:00: both ears Dave as (CORTISPORI 00 4 (four) Medi michael N-TC) times Branch 3.3-3-10-0. daily. 5 mg/mL otic drops 2020-0 Yes [id number] 1{packe Take 1 Univers vit 4-15 t} Packet by ity of 33-iron-fol 00:00: mouth [place] ic-dha 00 daily. Medical (SELECT-OB Branch + DHA) 29 mg iron-1 mg -250 mg combo pack colistin-ne 2020-0 Yes [id number] 1[drp] Place 1 Univers omycin-hc-t 4-15 Drop in ity o f [place] 00:00: both ears Dave as (CORTISPORI 00 4 (four) Medi michael N-TC) times Branch 3.3-3-10-0. daily. 5 mg/mL otic drops 2020-0 Yes [id number] 1{packe Take 1 Univers vit 4-15 t} Packet by ity of 33-iron-fol 00:00: mouth [place] ic-dha 00 daily. Medical (SELECT-OB Branch + DHA) 29 mg iron-1 mg -250 mg combo pack colistin-ne 2020-0 Yes [id number] 1[drp] Place 1 Univers omycin-hc-t 4-15 Drop in ity o f [place] 00:00: both ears Dave as (CORTISPORI 00 4 (four) Medi michael N-TC) times Branch 3.3-3-10-0. daily. 5 mg/mL otic drops 2020-0 Yes [id number] 1{packe Take 1 Univers vit 4-15 t} Packet by ity of 33-iron-fol 00:00: mouth [place] ic-dha 00 daily. Medical (SELECT-OB Branch + DHA) 29 mg iron-1 mg -250 mg combo pack colistin-ne 2020-0 Yes [id number] 1[drp] Place 1 Univers omycin-hc-t 4-15 Drop in ity o f [place] 00:00: both ears Dave as (CORTISPORI 00 4 (four) Medi michael N-TC) times Branch 3.3-3-10-0. daily. 5 mg/mL otic drops 2020-0 Yes [id number] 1{packe Take 1 Univers vit 4-15 t} Packet by ity of 33-iron-fol 00:00: mouth [place] ic-dha 00 daily. Medical (SELECT-OB Branch + DHA) 29 mg iron-1 mg -250 mg combo pack colistin-ne 2020-0 Yes [id number] 1[drp] Place 1 Univers omycin-hc-t 4-15 Drop in ity o f [place] 00:00: both ears Dave as (CORTISPORI 00 4 (four) Medi michael N-TC) times Branch 3.3-3-10-0. daily. 5 mg/mL otic drops 2019-0 Yes [id number] 1{packe Take 1 Univers vit 4-15 t} Packet by ity of 33-iron-fol 00:00: mouth [place] ic-dha 00 daily. Medical (SELECT-OB Branch + DHA) 29 mg iron-1 mg -250 mg combo pack colistin-ne 2020-0 Yes [id number] 1[drp] Place 1 Univers omycin-hc-t 4-15 Drop in ity o f [place] 00:00: both ears Dave as (CORTISPORI 00 4 (four) Medi michael N-TC) times Branch 3.3-3-10-0. daily. 5 mg/mL otic drops 2020-0 Yes [id number] 1{packe Take 1 Univers vit 4-15 t} Packet by ity of 33-iron-fol 00:00: mouth [place] ic-dha 00 daily. Medical (SELECT-OB Branch + DHA) 29 mg iron-1 mg -250 mg combo pack colistin-ne 2020-0 Yes [id number] 1[drp] Place 1 Univers omycin-hc-t 4-15 Drop in ity o f [place] 00:00: both ears Dave as (CORTISPORI 00 4 (four) Medi michael N-TC) times Branch 3.3-3-10-0. daily. 5 mg/mL otic drops 2020-0 Yes [id number] 1{packe Take 1 Univers vit 4-15 t} Packet by ity of 33-iron-fol 00:00: mouth [place] ic-dha 00 daily. Medical (SELECT-OB Branch + DHA) 29 mg iron-1 mg -250 mg combo pack colistin-ne 2020-0 Yes [id number] 1[drp] Place 1 Univers omycin-hc-t 4-15 Drop in ity o f [place] 00:00: both ears Dave as (CORTISPORI 00 4 (four) Medi michael N-TC) times Branch 3.3-3-10-0. daily. 5 mg/mL otic drops 2020-0 Yes [id number] 1{packe Take 1 Univers vit 4-15 t} Packet by ity of 33-iron-fol 00:00: mouth [place] ic-dha 00 daily. Medical (SELECT-OB Branch + DHA) 29 mg iron-1 mg -250 mg combo pack colistin-ne 2020-0 Yes [id number] 1[drp] Place 1 Univers omycin-hc-t 4-15 Drop in ity o f [place] 00:00: both ears Dave as (CORTISPORI 00 4 (four) Medi michael N-TC) times Branch 3.3-3-10-0. daily. 5 mg/mL otic drops 2020-0 Yes [id number] 1{packe Take 1 Univers vit 4-15 t} Packet by ity of 33-iron-fol 00:00: mouth [place] ic-dha 00 daily. Medical (SELECT-OB Branch + DHA) 29 mg iron-1 mg -250 mg combo pack colistin-ne 2020-0 Yes [id number] 1[drp] Place 1 Univers omycin-hc-t 4-15 Drop in ity o f [place] 00:00: both ears Dave as (CORTISPORI 00 4 (four) Medi michael N-TC) times Branch 3.3-3-10-0. daily. 5 mg/mL otic drops 2020-0 Yes [id number] 1{packe Take 1 Univers vit 4-15 t} Packet by ity of 33-iron-fol 00:00: mouth [place] ic-dha 00 daily. Medical (SELECT-OB Branch + DHA) 29 mg iron-1 mg -250 mg combo pack colistin-ne 2020-0 Yes [id number] 1[drp] Place 1 Univers omycin-hc-t 4-15 Drop in ity o f [place] 00:00: both ears Dave as (CORTISPORI 00 4 (four) Medi michael N-TC) times Branch 3.3-3-10-0. daily. 5 mg/mL otic drops 2020-0 Yes [id number] 1{packe Take 1 Univers vit 4-15 t} Packet by ity of 33-iron-fol 00:00: mouth [place] ic-dha 00 daily. Medical (SELECT-OB Branch + DHA) 29 mg iron-1 mg -250 mg combo pack colistin-ne 2020-0 Yes [id number] 1[drp] Place 1 Univers omycin-hc-t 4-15 Drop in ity o f [place] 00:00: both ears Dave as (CORTISPORI 00 4 (four) Medi michael N-TC) times Branch 3.3-3-10-0. daily. 5 mg/mL otic drops 2020-0 Yes [id number] 1{packe Take 1 Univers vit 4-15 t} Packet by ity of 33-iron-fol 00:00: mouth [place] ic-dha 00 daily. Medical (SELECT-OB Branch + DHA) 29 mg iron-1 mg -250 mg combo pack colistin-ne 2020-0 Yes [id number] 1[drp] Place 1 Univers omycin-hc-t 4-15 Drop in ity o f [place] 00:00: both ears Dave as (CORTISPORI 00 4 (four) Medi michael N-TC) times Branch 3.3-3-10-0. daily. 5 mg/mL otic drops 2020-0 Yes [id number] 1{packe Take 1 Univers vit 4-15 t} Packet by ity of 33-iron-fol 00:00: mouth [place] ic-dha 00 daily. Medical (SELECT-OB Branch + DHA) 29 mg iron-1 mg -250 mg combo pack colistin-ne 2020-0 Yes [id number] 1[drp] Place 1 Univers omycin-hc-t 4-15 Drop in ity o f [place] 00:00: both ears Dave as (CORTISPORI 00 4 (four) Medi michael N-TC) times Branch 3.3-3-10-0. daily. 5 mg/mL otic drops 2020-0 Yes [id number] 1{packe Take 1 Univers vit 4-15 t} Packet by ity of 33-iron-fol 00:00: mouth [place] ic-dha 00 daily. Medical (SELECT-OB Branch + DHA) 29 mg iron-1 mg -250 mg combo pack colistin-ne 2020-0 Yes [id number] 1[drp] Place 1 Univers omycin-hc-t 4-15 Drop in ity o f [place] 00:00: both ears Dave as (CORTISPORI 00 4 (four) Medi michael N-TC) times Branch 3.3-3-10-0. daily. 5 mg/mL otic drops 2020-0 Yes [id number] 1{packe Take 1 Univers vit 4-15 t} Packet by ity of 33-iron-fol 00:00: mouth [place] ic-dha 00 daily. Medical (SELECT-OB Branch + DHA) 29 mg iron-1 mg -250 mg combo pack colistin-ne 2020-0 Yes [id number] 1[drp] Place 1 Univers omycin-hc-t 4-15 Drop in ity o f [place] 00:00: both ears Dave as (CORTISPORI 00 4 (four) Medi michael N-TC) times Branch 3.3-3-10-0. daily. 5 mg/mL otic drops 2020-0 Yes [id number] 1{packe Take 1 Univers vit 4-15 t} Packet by ity of 33-iron-fol 00:00: mouth [place] ic-dha 00 daily. Medical (SELECT-OB Branch + DHA) 29 mg iron-1 mg -250 mg combo pack Vital Signs Vital Name Observation Time Observation Value Comments Source Systolic blood 2022-06-29 15:05:00 121 mm[Hg] [facility] Diastolic blood 2022-06-29 15:05:00 83 mm[Hg] [facility] Heart rate 2022-06-29 15:05:00 90 [facility] height 2022-06-29 15[facility]05:00 [facility] weight 2022-06-29 15:05:00 [facility] 2022-06-29 15:05:00 [facility]46 [facility] 2020-06-30 13:16:00 113 mm[Hg] Univer sity of pressure [facility] Branch Diastolic blood 2020-06-30 13:16:00 70 mm[Hg] Unive rsity of pressure [facility] Heart rate 2020-06-30 13:16:00 110 /min [facility] [place] [facility] Body temperature 2020-06-30 13:16:00 36.61 Rosario Univ ersity of [facility] Respiratory rate 2020-06-30 13:16:00 16 /min Univ ersity of [facility] Body height 2020-06-30 13:16:00 170.2 cm [facility] [place] [facility] Body weight 2020-06-30 13:16:00 102.513 kg [facility] [place] [facility] BMI 2020-06-30 13:16:00 35.40 kg/m2 [facility] [place] [facility] Systolic blood 2020-06-30 13:16:00 113 mm[Hg] Univer sity of pressure [place] [facility] Diastolic blood 2020-06-30 13:16:00 70 mm[Hg] Unive rsity of pressure [facility] Heart rate 2020-06-30 13:16:00 110 /min [facility] [place] [facility] Body temperature 2020-06-30 13:16:00 36.61 Rosario Univ ersity [facility] [place] [facility] Respiratory rate 2020-06-30 13:16:00 16 /min Univ ersity [facility] [place] [facility] Body height 2020-06-30 13:16:00 170.2 cm [facility] [place] [facility] Body weight 2020-06-30 13:16:00 102.513 kg [facility] [place] [facility] BMI 2020-06-30 13:16:00 35.40 kg/m2 [facility] [place] [facility] Systolic blood 2020-06-17 15:43:00 118 mm[Hg] Univer sity of pressure [place] [facility] Diastolic blood 2020-06-17 15:43:00 76 mm[Hg] Unive rsity of pressure [place] [facility] Heart rate 2020-06-17 15:43:00 96 /min [facility] [place] [facility] Body temperature 2020-06-17 15:43:00 36.28 Rosario [facility] [place] [facility] Respiratory rate 2020-06-17 15:43:00 16 /min Univ ers[facility] [place] [facility] Body height 2020-06-17 15:43:00 170.2 cm [facility] [place] [facility] Body weight 2020-06-17 15:43:00 102.74 kg [facility] [place] [facility] BMI 2020-06-17 15:43:00 35.47 kg/m2 [facility] [place] [facility] Systolic blood 2020-05-13 18:05:00 126 mm[Hg] Univer sity of pressure [place] [facility] Diastolic blood 2020-05-13 18:05:00 71 mm[Hg] Unive rsity of pressure [place] [facility] Heart rate 2020-05-13 18:05:00 87 /min [facility] [place] [facility] Body temperature 2020-05-13 18:05:00 36.56 Rosario Univ ersity of [facility] Respiratory rate 2020-05-13 18:05:00 16 /min Univ ersity [facility] [place] [facility] Body height 2020-05-13 18:05:00 170.2 cm [facility] [place] [facility] Body weight 2020-05-13 18:05:00 102.649 kg [facility] [place] [facility] BMI 2020-05-13 18:05:00 35.44 kg/m2 [facility] [place] [facility] Systolic blood 2020-04-14 21:00:00 129 mm[Hg] Univer sity of pressure [place] [facility] Diastolic blood 2020-04-14 21:00:00 87 mm[Hg] Unive rsity of pressure [place] [facility] Heart rate 2020-04-14 21:00:00 86 /min [facility] [place] [facility] Body temperature 2020-04-14 21:00:00 36.67 Ros[facility] [place] [facility] Respiratory rate 2020-04-14 21:00:00 16 /min [facility] [place] [facility] Body height 2020-04-14 21:00:00 170.2 cm [facility] [place] [facility] Body weight 2020-04-14 21:00:00 103.137 kg [facility] [place] [facility] BMI 2020-04-14 21:00:00 35.61 kg/m2 [facility] [place] [facility] Systolic blood 2020-02-13 15:32:00 118 mm[Hg] Univer sity of pressure [facility] Diastolic blood 2020-02-13 15:32:00 67 mm[Hg] [facility] Heart rate 2020-02-13 15:32:00 92 /min [facility] Body temperature 2020-02-13 15:32:00 36.89 [facility] Respiratory rate 2020-02-13 15:32:00 16 /min [facility] Body height 2020-02-13 15:32:00 170.2 cm [facility] Body weight 2020-02-13 15:32:00 104.441 kg [facility] BMI 2020-02-13 15:32:00 36.06 kg/m2 [facility] Procedures Procedure Date / Time Performing Clinician Source Performed [id number] 2020-09-23 00:00:00 [facility] [place] POCT URINALYSIS 2020-06-17 15:51:00 Annie Elliott [facility] POCT URINALYSIS 2020-06-17 15:50:00 Annie Elliott [facility] POCT URINALYSIS 2020-05-13 00:00:00 Annie Elliott [facility] POCT URINALYSIS 2020-04-14 21:13:00 Annie Elliott [facility] GLUCOSE 1 HOUR POST 2020-02-13 16:53:00 Annie Elliott [facility] CBC WITH DIFFERENTIAL 2020-02-13 16:53:00 [facility] 2020-02-13 16:53:00 Annie Elliott [facility] HIV 1/2 AG-AB WITH 2020-02-13 16:53:[address] [facility] REFLEX [facility] HB ABO GROUPING 2020-02-13 16:45:00 Annie Elliott [facility] PAP SMEAR-LIQUID 2020-02-13 16:27:00 Annie Elliott [facility] POCT TEST 2020-02-13 15:34:00 Annie Elliott [facility] POCT URINALYSIS 2020-02-13 15:33:00 Annie Elliott [facility] ASSIGNMENT OF BENEFITS 2020-02-13 15:13:36 Doctor Unassigned, No [facility] Encounters Start End Encounter Admission Attending Care Care Encounter Source Date/Time Date/Time Type Type Clinicians Facility Department ID 2022-09-03 Outpatient [id number] Memoria 20:12:22 [id number] [place] [id number] 2022-06-29 Outpatient [facility] [id number] [place] 09:59:[id number] [facility] 2022-06-03 Outpatient [facility] [id number] [place] 14:35:[id number] [facility] 2022-02-05 [facility] [id number] [place] 09:43:36 SAYEEDA [id number] [facility] 2020-09-29 Inpatient [facility] [id number] [facility] 08:28:00 79 [facility] 2020-09-23 Inpatient AMINATA Fenton, [facility] [id number] [facility] 10:00:00 Jeremiah Copeland [facility] 2022-09-13 2022-09-13 Outpatient Oskar SAUN[place] [id number] [facility] 13:00:00 13:00:00 DILEEP knapp [facility] 2022-08-30 2022-08-30 Outpatient ROSAURA HANSON SHYANN [id number] [facility] 09:00:00 09:00:[address] [facility] 2022-08-04 2022-08-04 Outpatient Oskar SAUNDERS [place] [id number] Univers 09:00:00 09:00:00 DILEEP [facility] 2022-07-29 2022-07-29 Outpatient Oskar SAUNDERS [place] [id number] Univers 13:00:00 13:00:00 DILEEP karo [facility] 2022-07-13 2022-07-13 Outpatient Oskar SAUNDERS [place] [id number] Univers 10:00:00 10:00:00 DILEEP [facility] 2022-06-29 2022-06-29 Office CECE Nielson [id number] [place] 10:00:00 12:35:01 Visit Loy JONES [id number] [facility] [id number] SPECIALTY [id number] CLINIC 9 2022-01-15 2022-01-15 Emergency EM Martha Leon, [facility] [id number] [facility] 17:24:00 18:34:00 Ebony [facility] 2021-09-30 2021-09-30 Outpatient Oskar WATT [place] [id number] Univers 10:00:00 10:00:00 JOSE knapp adi [facility] 2020-09-19 2020-09-19 Outpatient Eliceo [facility] [id number] [facility] 10:00:00 10:00:00 Jeremiah [facility] 2020-07-14 2020-07-14 [facility] [id number] Univers 12:45:00 12:45:00 ANNIE joshi joaquín [facility] 2020-07-14 2020-07-14 Outpatient Oskar ELLIOTT [place] [id number] Univers 12:45:00 12:45:00 ANNIE joshi [facility] 2020-06-30 2020-06-30 Outpatient R [place] [id number] Univers 08:30:00 08:30:00 [facility] 2020-06-30 2020-06-30 Nurse Visit, [facility] 1.2.840.114 [id number] 08:04:52 08:19:52 Visit Stephen-Tanmay [employer] 350.1.13.10 Nurse REGIONAL 4.2.7.2.686 MATERNAL [phone] & CHILD 107 [facility] 2020-06-30 2020-06-30 Nurse Visit, Analilia Nurse [facility] 1.2 .840.114 [id number] Univers 08:04:52 08:19:52 Visit Annie Elliott R [employer] 350.1.13.10 ity of REGIONAL 4.2.7.2.686 Dave as MATERNAL [phone] [facility] ical & CHILD [address] [place] [address] 2020-06-23 2020-06-23 Telephone Earl [facility] 1.2.642.453 [id number] 00:00:00 00:00:00 Roshunda R [employer] 350.1.13.10 REGIONAL 4.2.7.2.686 MATERNAL [phone] & CHILD 107 [facility] 2020-06-23 2020-06-23 Telephone Ealr [facility] 1.2.140.942 [id number] 00:00:00 00:00:00 Roshunda R [employer] 350.1.13.10 REGIONAL 4.2.7.2.686 MATERNAL [phone] & CHILD [address] [place] [address] 2020-06-23 2020-06-23 Telephone Earl [facility] 1.2.163.011 [id number] Univers 00:00:00 00:00:00 Roshunda R [employer] 350.1.13.10 ity of REGIONAL 4.2.7.2.686 Dave as MATERNAL [phone] [facility] ical & CHILD [address] [place] [address] 2020-06-23 2020-06-23 Telephone Earl [facility] [id number] [facility] 00:00:00 00:00:00 Roshunda R [employer] 350.1.13.10 ity of REGIONAL 4.2.7.2.686 Dave as MATERNAL [phone] [facility] ical & CHILD [address] [place] [address] 2020-06-20 2020-06-20 Toxicology Teacher Lab, Analilia [facility] 1.2.840. 114 [id number] Univers 07:58:46 08:45:00 Visit Ana Elliottlorne R [employer] 350.1.13.10 ity of REGIONAL 4.2.7.2.686 Dave as MATERNAL [phone] [facility] ical & CHILD [address] [place] [address] 2020-06-20 2020-06-20 Outpatient R EARL [place] [id number] Univers 08:15:00 08:15:00 ROSHUNDA ity o f [facility] 2020-06-18 2020-06-18 [facility] 1.2.653.201 [id number] Univers 00:00:00 00:00:00 Roshunda R [employer] 350.1.13.10 ity of REGIONAL 4.2.7.2.686 Dave as MATERNAL [id number] [facility] ical & CHILD [address] [place] [address] 2020-06-17 2020-06-17 [facility] 1.2.840.114 [id number] Univers 10:25:25 11:09:57 Roshunda R [employer] 350.1.13.10 ity of Visit REGIONAL 4.2.7.2.686 Dave as MATERNAL [id number] [facility] ical & CHILD [address] [place] [address] 2020-06-17 2020-06-17 Outpatient R EARL [place] [id number] Univers 10:45:00 10:45:00 ROSHUNDA ity o f [facility] 2020-06-13 2020-06-13 Outpatient R EARL [place] [id number] Univers 08:45:00 08:45:00 ROSHUNDA ity o f [facility] 2020-06-09 2020-06-09 Outpatient R EARL [place] [id number] Univers 12:45:00 12:45:00 ROSHUNDA ity o joaquín [facility] 2020-06-09 2020-06-09 Outpatient R EARL [place] [id number] Univers 12:45:00 12:45:00 ROSHUNDA ity o f [facility] 2020-05-13 2020-05-13 [facility] 1.2.840.114 [id number] Univers 12:54:09 13:09:09 Roshunda R [employer] 350.1.13.10 ity of Visit REGIONAL 4.2.7.2.686 Dave as MATERNAL [phone] Med ical & CHILD [address] [place] [address] 2020-05-13 2020-05-13 Toxicology Teacher Ultrasound, Niko [facility] 1.2 .840.114 [id number] Univers 11:01:46 12:28:32 Visit Kraig Kan [employer] 350.1.13.10 ity of REGIONAL 4.2.7.2.686 Dave as MATERNAL [phone] Med ical & CHILD 369 [facility] 2020-05-13 2020-05-13 Outpatient R [place] [id number] Univers 10:45:00 10:45:00 ity of [facility] 2020-05-13 2020-05-13 Abstract Earl [facility] 1.2.840.114 [id number] Univers 00:00:00 00:00:00 Rosmariposanda R [employer] 350.1.13.10 ity of [facility] 4.2.7.2.686 Dave as MATERNAL [phone] Med ical & CHILD [address] [place] [address] 2020-04-16 2020-04-16 Patient Doctor [facility] 1.2.840.114 [id number] Univers 00:00:00 00:00:00 Secure Msg Unassigned, [employer] 350.1.13.10 ity of [place] REGIONAL 4.2.7.2.686 Dave as MATERNAL [phone] [facility] & CHILD [address] [place] [address] 2020-04-14 2020-04-14 Routine Earl [facility] 1.2.840.114 [id number] Univers 15:52:32 16:24:52 Rosmariposanda R [employer] 350.1.13.10 ity of Visit REGIONAL 4.2.7.2.686 Dave as MATERNAL [phone] [facility] ical & CHILD [address] [place] [address] 2020-04-14 2020-04-14 Outpatient R EARL [place] [id number] Univers 15:45:00 15:45:00 ROSHUNDA ity o f [facility] 2020-04-07 2020-04-07 Outpatient R EARL [place] [id number] Univers 10:30:00 10:30:00 ANNIE knapp o joaquín [facility] 2020-04-04 2020-04-04 Telephone Earl [facility] 1.2.745.001 [id number] Univers 00:00:00 00:00:00 Annie Schmitt [employer] 350.1.13.10 ity of [facility] 4.2.7.2.686 Dave as MATERNAL [phone] Med ical & CHILD [address] [place] [address] 2020-03-27 2020-03-27 Outpatient R CAROLANN [place] [id number] Univers 10:30:00 10:30:00 FELICITAS ity of [facility] 2020-03-27 2020-03-27 Telemedici Nirmal Cristinachp-Np/High [facility] 1.2.840.114 [id number] Univers 08:51:09 09:06:09 ne Visit Felicitas Vuongy [employer] 350.1.13.10 ity of REGIONAL 4.2.7.2.686 Dave as MATERNAL [phone] Med ical & CHILD [address] [place] [address] 2020-03-11 2020-03-11 Outpatient R EARL [place] [id number] Univers 13:30:00 13:30:00 ANNIE victor [facility] 2020-03-11 2020-03-11 Telemedici Earl [facility] 1.2.840.114 [id number] Univers 07:43:23 07:58:23 ne Visit Annie Oskar [employer] 350.1.13.10 ity of REGIONAL 4.2.7.2.686 Dave as MATERNAL [phone] Med ical & CHILD [address] [place] [address] 2020-03-05 2020-03-05 Patient Doctor [facility] 1.2.840.114 [id number] Univers 00:00:00 00:00:00 Secure Msg Unassigned, [employer] 350.1.13.10 ity of [place] REGIONAL 4.2.7.2.686 Dave as MATERNAL [phone] Med ical & CHILD [address] [place] [address] 2020-03-03 2020-03-03 Patient Doctor [facility] 1.2.840.114 [id number] Univers 00:00:00 00:00:00 Secure Msg Unassigned, [employer] 350.1.13.10 ity of [place] [facility] 4.2.7.2.686 Dave as MATERNAL [phone] [facility] & CHILD [address] [place] [address] 2020-02-20 2020-02-20 Outpatient R EARL [place] [id number] Univers 13:15:00 13:15:00 ROSHUNDA ity o f [facility] 2020-02-15 2020-02-15 Patient Doctor [facility] 1.2.840.114 [id number] Univers 00:00:00 00:00:00 Secure Msg Unassigned, [employer] 350.1.13.10 ity of [place] [address].2.7.2.686 Dave as MATERNAL [phone] [facility] & [address] 2020-02-13 2020-02-13 Initial [facility] 1.2.840.114 [id number] Univers 10:21:32 11:23:31 Roshunda R [employer] 350.1.13.10 ity of Visit [facility] 4.2.7.2.686 Dave as MATERNAL [phone] [facility] & [address] 2020-02-13 2020-02-13 [facility] [id number] Univers 09:45:00 09:45:00 ROSMARIPOSANDA ity o f [facility] 2020-02-13 2020-02-13 Orders Doctor TASHA 1.2.840.114 [id number] Univers 00:00:00 00:00:00 Only Unassigned, ARUN 350.1.13.10 ity of [place] [address]686 Dave as [phone] [address] Results Test Description Test Time Test [...] for culture: Dysuria/FrequencySpecimen Description: CLEAN CATCHUR HCG [id number] 19:59:00 Test Item Value Reference Range Interpretation [...] tested. Indication for culture: Dysuria/FrequencySpecimen Description: CLEAN CATCHDRUGS OF ABUSE [id number] 19:56:00 Test Item Value Reference Range Interpretation [...] code = PHENCU) ng/mL - CT ANGIO [id number] 11:16:00 [facility] 1995 Sex: F Patient Name: ABNER NOYOLA Unit No: [id number] EXAMS: CPT CODE: [id number] CT ANGIO CHEST [address] CT SCAN OF THE CHEST WITH CONTRAST (CTPA): DATE: September 29, 2020 COMPARISON: None CLINICAL HISTORY:Status post , shortness of breath, elevated d-dimer, chest pain One or more of the following dosetechniques were utilized; automated exposure control, adjustment of the mA and/or kV according to patient size, and/or utilization of iterative reconstruction technique. DLP: 558.03 mGy-cm. TECHNIQUE: Sequential scanning of the chest as a PE protocol was performed with Isovue 300 IV. Sagittal and coronal reformatted images were obtained as well as right and left oblique MIPS images of the pulmonary va sculature were obtained. 3D MIP images of the [...] identified. Visualized osseous structures demonstrate no acute ab normalities. The visualized upper abdomen and lower neck are unremarkable. IMPRESSION: No pulmonaryemboli identified. Prominent pulmonary vasculature and pleural effusions are suggestive of fluid overload. Mildly prominent heart. [facility] NAME: ABNER NOYOLA Radiology Department PHYS: Kervin Rodríguez [address] : 1995 AGE: 25 SEX: F [place], [place] [address] LOC: Joaquín.ERS PHONE #: [phone] EXAM DATE: 09/29/2020 STATUS: REG ER FAX #:[phone] RAD NO: Page 1 Signed Report 1 Patient Name: ABNER NOYOLA Unit No: [id number] EXAMS: CPT CODE: [id number] CT ANGIO CHEST 33129 (Continued) Electronically Signed by Stella Bocanegra 09/29/2020 at 1116 Reported and signed by: Stella Diaz MD CC: Kervin Rosa MD; Jeremiah Fenton Technologist: Fernandez Chatman, RT, CT CTDI: 17.86 DLP: 558.03 Trnscrbd D/ (1116) Jocelyne [facility] NAME: ABNER NOYOLA Radiology Department PHYS: Kervin Rodríguez [address] : 1995 AGE: 25 SEX: F [place], [place] [address] LOC: Joaquín.ERS PHONE #: [phone] EXAM DATE: 09/29/2020 STATUS: REG ER FAX #: [phone] RAD NO: Page 2 Signed Report 1 Patient Name: ABNER NOYOLA Unit No: [id number] EXAMS: CPT CODE: [id number] CT ANGIO CHEST 14808 (Continued) Orig Print D/T: S: 09/29/2020 (1119) [facility] NAME: ABNER NOYOLA Radiology Department PHYS: Kervin Rodríguez [address] : 1995 AGE: 25 SEX: F [place], [place] [address] LOC: SANDRA PHONE #: [phone] EXAM DATE: 09/29/2020 STATUS: REG ER FAX #: [phone] RAD NO: Page 3 Signed Report 1D- DIMER [id number] 10:05:00 Test Item Value Reference Range Interpretation Comments D-DIMER QUANT 853 ng/mLDDU <255 H Reference Ran ge in (test code = : <570 DDIMER) ng/ml A positive test d oes not provide a defin itive diagnosis ofDVT and indicates the n eed for follow up clini michael studies. The pr edictive value of a nega tive test is 98% for rulingout DVT. - XR CHEST 1 [id number] 10:03:00 [facility] 1995 Sex: F Patient Name: ABNER NOYOLA Unit No: [id number] EXAMS: CPT CODE: [id number] XR CHEST 1 V 51126 Clinical Indication: Shortness of breath after section Comparison: None FINDINGS: Low lung volumes results in crowding of the central pulmonary vasculature. No lobar consolidation. No pleural effusion. Lucency at the right lung apex is felt to represent mock artifact. The cardiac silhouette is accentuated by low lung volumes and portable technique. Midline trachea. No acute osseous abnormalities. IMPRESSION: Low lung volumes. No consolidative pneumonia. SL: [id number] at 1003 Reported and signed by: Tyler Lewis MD CC: Oskar Rosa MD; Jeremiah Fenton Technologist: Angely Koroma, RT, CT Trnscrbd D/ (1003) t.SDR.MT17 Orig Print D/T: S: 09/29/2020 (1006) [facility] NAME: ABNER NOYOLA Radiology Department PHYS: Kervin Rodríguez [address] : 1995 AGE: 25 SEX: F [place], [place] [address] LOC: FranERS PHONE #: [phone] EXAM DATE: 09/29/2020 STATUS: REG ER FAX #: [phone] RAD NO: Page 1 Signed ReportB-TYPE NATRIURETIC [id number] 09:48:00 Test Item Value Reference Range Interpretation Comments B-TYPE NATRIURETIC PEPTIDE (test 383.61 pg/mL 0-100 H code = BNP) DRUGS OF ABUSE [id number] 09:43:00 Test Item Value Reference Range Interpretation [...] = PHENCU) 25 ng/m L COMPREHENSIVE METABOLIC [id number] 09:42:00 Test Item Value Reference Range Interpretation Comments SODIUM (test code = 143 mEq/L 135-145 N NA) POTASSIUM (test code 2.7 mEq/L 3.5-5.0 LL RESULTS VERIFIED BY = K) REPEAT ANALYSIS RESULTS CALLED TO ELVIN MOLINA.READ BACK & CONFIRME D? YES.BY F.LAB.[facility] 09/29/20924. CHLORIDE (test code 105 mEq/L 100-115 [...] 46-116 N TOTAL (test code = ALKP) [id number] 09:42:00 Test Item Value Reference Range Interpretation Comments TROPONIN-I (test code = TROPI) 0.053 ng/mL <0.056 N COMPREHENSIVE METABOLIC [id number] 09:25:00 Test Item Value Reference Range Interpretation Comments SODIUM (test code = 143 mEq/L 135-145 N NA) POTASSIUM (test code 2.7 mEq/L 3.5-5.0 LL RESULTS VERIFIED BY = K) REPEAT ANALYSIS RESULTS CALLED TO ELVIN LaurenN.READ BACK & CONFIRME D? YES.BY F.LAB. B1 09/29/20924. CHLORIDE (test code 105 mEq/L [...] units/L 46-116 TOTAL (test code = ALKP) [id number] 09:25:00 Test Item Value Reference Range Interpretation Comments TROPONIN-I (test code = TROPI) 0.053 ng/mL <0.056 N UA RFLX MICR CULT IF [id number] 09:21:00 Test Item Value Reference Range Interpretation [...] culture: Suprapubic PainSpecimen Description: CLEAN CATCHCBC W/AUTO [id number] 09:08:00 Test Item Value Reference Range Interpretation [...] REQUIRED (test NORMAL NORMAL code = PLTMR) [id number] 06:36:00 Test Item Value Reference Range Interpretation Comments GLUBED (test code = GLUBED) 82 mg/dL 65-110 N HGB [id number] 04:50:00 Test Item Value Reference Range Interpretation Comments HEMOGLOBIN (test code = HGB) 8.1 g/dL 10.7-13.9 L HEMATOCRIT (test code = HCT) 25.2 % 32.1-42.1 L [id number] 04:43:00 Test Item Value Reference Range Interpretation Comments GLUBED (test code = GLUBED) 98 mg/dL 65-110 N [id number] 12:00:00 Test Item Value Reference Range Interpretation Comments GLUCOSE (test code = GLU) 81 mg/dL 65-110 N AG HEPATITIS B [id number] 14:40:00 Test Item Value Reference Range Interpretation Comments AG HEPATITIS B SURFACE (test code NONREACTIVE NONREACTIVE = HBSAG) : *IS CONSENT FORM SIGNED FOR HIV TESTING? YAB HEPATITIS C [id number] 14:40:00 Test Item Value Reference Range Interpretation Comments AB HEPATITIS C (test code = NONREACTIVE NONREACTIVE HCVAB) SIGNAL TO CUTOFF (test code = 0.07 <0.80 N CUTOFF) : *IS CONSENT FORM SIGNED FOR HIV TESTING? YAB [id number] 14:40:00 Test Item Value Reference Range Interpretation Comments AB TREPONEMA (test code = TREPAB) NONREACTIVE NONREACTIVE : *IS CONSENT FORM SIGNED FOR HIV TESTING? YAB HIV 1 14:40:00 Test Item Value Reference Range Interpretation Comments AB HIV 1 2 (test NONREACTIVE NONREACTIVE [facility] code = WQQ34NU) 4th Gen HIV Ag/Ab Combo Screen : *IS CONSENT FORM SIGNED FOR HIV TESTING? YCOVID 19 Asymptomatic IH AG 2020-09-19 13:28:00 Test Item Value Reference Range Interpretation Comments COVID 19 NEGATIVE NEGATIVE This test has b een Asymptomatic IH AG authorize d only for the (test code = detection ofpro teins from COVNONPUIAG) SARS-CoV-2, not for any other viruses orpathogens. Ne gative results should be treated as presumptive andconfirmed [...] ncy Use Authorization(E UA) for use by laborato leonor certified under the CLIA thatmeet the re quirements to perform mode rate, high or waivedcomple xity tests. This sheba t is authorized for use at thePoint of Car e (POC), i.e., in patien t care settingsoperati ng under a CLIA Certificat e of Waiver, Certifi beti ofCompliance, o r Certificate of Accreditation. This test is only authori zed for the duration of thedeclaration that circumstances e xist justifying theauthorizatio n of emergency use o f in vitro diagnostic test sfor detection and/o r diagnosis of CO VID-19 under Oenkxzg24 4(b)(1) of the Act, 21 U.S .C. 360bbb-3(b)(1), unless theauthorizatio n is terminated or r evoked sooner. CBC W/AUTO [id number] 13:26:00 Test Item Value Reference Range Interpretation [...] code = PLTMR) POCT URINALYSIS W SPECIFIC [id number] 15:52:00 Test Item Value Reference Range Interpretation [...] POCT U APPEAR (test code = 3267) [facility] [id number] 15:52:00 Test Item Value Reference Range Interpretation [...] 3267) [facility] URINALYSIS W SPECIFIC [id number] 15:52:00 Test Item Value Reference Range Interpretation [...] 3267) [facility] URINALYSIS W SPECIFIC [id number] 15:50:00 Test Item Value Reference Range Interpretation [...] 3267) [facility] URINALYSIS W SPECIFIC [id number] 15:50:00 Test Item Value Reference Range Interpretation [...] 3267) [facility] URINALYSIS W SPECIFIC [id number] 15:50:00 Test Item Value Reference Range Interpretation [...] 3267) [facility] URINALYSIS W SPECIFIC [id number] 18:13:00 Test Item Value Reference Range Interpretation [...] 3267) Lab Interpretation (test code = Abnormal 53101-0) [facility] URINALYSIS W SPECIFIC [id number] 21:14:00 Test Item Value Reference Range Interpretation [...] POCT U APPEAR (test code = 3267) [facility]OD [id number] 07:50:47 Test Item Value Reference Range Interpretation Comments ABO & RH (test code O POSITIVE Performe d at [facility] = 20) Laboratory Serv [facility] [address] [facility] s [address]Vhcr Free: [phone] A No. [id number] IAT (test code = Negative Performed a t [facility] 1185) Laboratory Serv [facility] s [address]Tzzh Free: [phone] A No. [id number] [facility] AG-AB WITH [id number] 06:35:00 Test Item Value Reference Range Interpretation Comments HIV Negative Negative Semi-quantitative (test code = 92633-0) TERRELL (test code = Non-reactive for HIV-1 TERRELL) antigen and HIV-1/HIV-2 antibodies. ?No laboratory evidence of HIV infection. ?Repeat in 2-4 weeks if acute HIV infection is suspected. [facility]AT[facility] SURFACE [id number] 05:34:00 Test Item Value Reference Range Interpretation Comments HBsAg Semi-Quantitative (test code = Negative Negative 5195-3) [facility] HOUR POST [id number] 05:05:00 Test Item Value Reference Range Interpretation Comments GLUC 1 HR (test code = 3018309295) 98 mg/dL 120-170 L Lab Interpretation (test code = Abnormal 57992-6) [facility]anoCBC WITH [id number] 04:35:00 Test Item Value Reference Range Interpretation Comments WBC (test code = See_Comment [Automated 2390-2) message] The sy stem which generated this result transmitted reference range : 4.30 - 11.10 10*3/?L. The reference range was not used to interpret this result as normal/abnormal . RBC (test code = See_Comment L [Automated 879-8) message] The sy stem which generated this [...] RDW-SD (test code = 43.6 fL 39-49.9 71686-4) RDW-CV (test code = 12.1 % 12-15.5 788-0) PLT (test code = See_Comment [Automated 777-3) message] The sy stem which generated this result transmitted reference range : 166 - 358 10*3/ ?L. The reference r marleen was not used to interpret this result as normal/abnormal . MPV (test code = 9.9 fL 9.5-12.9 71995-7) NRBC/100 WBC (test See_Comment [Automat ed code = 6168959291) message] The system which generated this result transmitted reference range : 0.0 - 10.0 /100 WBCs. The refer ence range was not u sed to interpret th is result as normal/abnormal . NRBC x10^3 (test code <0.01 See_Comment [Auto mated = [id number]) message] The s ystem which generated this result transmitted reference range : 10*3/?L. The reference range was not used to interpret this result as normal/abnormal . GRAN MAT (NEUT) % 68.9 % (test code = 770-8) IMM GRAN % (test code 0.10 % = 6376235010) LYMPH % (test code = 19.7 % 736-9) MONO % (test code = 8.6 % 5905-5) EOS % (test code = 1.8 % 713-8) BASO % (test code = 0.9 % 706-2) GRAN MAT x10^3(ANC) 4.62 10*3/uL 1.88-7.09 (test code = 4415431136) IMM GRAN x10^3 (test <0.03 0-0.06 code = 2062477967) LYMPH x10^3 (test code 1.32 10*3/uL 1.32-3.29 = 731-0) MONO x10^3 (test code 0.58 10*3/uL 0.33-0.92 = 742-7) EOS x10^3 (test code = 0.12 10*3/uL 0.03-0.39 711-2) BASO x10^3 (test code 0.06 10*3/uL 0.01-0.07 = 704-7) Lab Interpretation Abnormal (test code = 87419-1) [facility] URINALYSIS W SPECIFIC [id number] 15:34:00 Test Item Value Reference Range Interpretation [...] (test code = 3267) [facility] [id number] 15:34:00 Test Item Value Reference Range Interpretation Comments POCT PREG (test code = 1605) Positive On board controls acceptable with C Yes Line (test code = 3574) POCT PREG LOT # (test code = 3575) POCT PREG TEST DATE (test code = 3576) [facility] URINALYSIS W SPECIFIC [id number] 15:34:00 Test Item Value Reference Range Interpretation [...] (test code = 3267) [facility] [id number] 15:34:00 Test Item Value Reference Range Interpretation Comments POCT PREG (test code = 1605) Positive On board controls acceptable with C Yes Line (test code = 3574) POCT PREG LOT # (test code = 3575) POCT PREG TEST DATE (test code = 3576) [facility] URINALYSIS W SPECIFIC [id number] 15:34:00 Test Item Value Reference Range Interpretation [...] (test code = 3267) [facility] [id number] 15:34:00 Test Item Value Reference Range Interpretation Comments POCT PREG (test code = 1605) Positive On board controls acceptable with C Yes Line (test code = 3574) POCT PREG LOT # (test code = 3575) POCT PREG TEST DATE (test code = 3576) [facility]
--- NOTE | 2022-09-03 21:10 | RAD REPORT ---
EXAM DESCRIPTION: Grady Single View09/03/2022 9:02 pm CLINICAL HISTORY: Palpitation COMPARISON: 2014 FINDINGS: The lungs appear clear of acute infiltrate. The heart is normal size IMPRESSION: No acute abnormalities displayed
[2022-09-03 21:22] LABS: Absolute Lymphocytes (CBC) 0.9 K/uL (0.7-4.9); Hematocrit 42.4 % (36.0-45.0); Lymphocytes % 9.9 % (15.3-44.8); MPV 7.7 fL (7.6-11.3); RBC Red Blood Cell Count 4.56 M/uL (3.86-4.86)
[2022-09-03 21:37] LABS: Bilirubin Total 0.7 mg/dL (0.2-1.0); Potassium 3.5 mmol/L (3.5-5.1); Protein, Total 8.3 g/dL (6.4-8.2); Thyroid Stimulating Hormone 1.85 uIU/mL (0.360-3.740); Troponin High Sensitivity 19.7 pg/mL (<58.9)
[2022-09-03 21:38] LABS: Urine Blood 2+ (Negative); Urine Glucose Negative (Negative); Urine Protein 1+ (Negative); Urine Specific Gravity >=1.030 (1.005-1.030); Urine pH 5.5 (5.0-7.0)
[2022-09-03] MEDS ORDERED: NA CHLORIDE 0.9% 1,000 ML ONE (21:45)
--- NOTE | 2022-09-03 22:42 | ER ---
Nurse's Notes [facility] Name: Kasey Levy Age: 27 yrs Sex: Female : 1995 Arrival Date: 09/03/2022 Time: 20:12 Bed 18 Private MD: Kamilla Mckee Diagnosis: Palpitations Presentation: 09/03 20:22 Chief complaint: Patient states: feels like she is having palpitations of her heart and kr3 her heart rate is elevated. she has had X1 vomiting episode and feels nauseous. It also feels like my abdomen is swollen. Coronavirus screen: Vaccine status: Patient reports being unvaccinated. Client denies travel out of the [place] in the last 14 days. Ebola Screen: Patient denies travel to an Ebola-affected area in the 21 days before illness onset. Initial Sepsis Screen: Does the patient meet any 2 criteria? No. Patient's initial sepsis screen is negative. Does the patient have a suspected source of infection? No. Patient's initial sepsis screen is negative. Risk Assessment: Do you want to hurt yourself or someone else? Patient reports no desire to harm self or others. Onset of symptoms was September 03, 2022. 20:22 Method Of Arrival: Ambulatory kr3 20:22 Acuity: MICHELLE 3 kr3 Triage Assessment: 20:29 General: Appears distressed, uncomfortable, ill, Behavior is cooperative, appropriate kr3 for age, anxious, currently vomiting. Historical: - Allergies: 20:33 No Known Allergies; kr3 - PMHx: 20:33 None; kr3 - PSHx: 20:33 section; kr3 - Immunization history:: Adult Immunizations not up to date. - Social history:: Smoking status: Patient denies any tobacco usage or history of. Screenin:02 Abuse screen: Denies threats or abuse. Denies injuries from another. Nutritional tp1 screening: No deficits noted. Tuberculosis screening: No symptoms or risk factors identified. Fall Risk None identified. Assessment: 20:50 General: Appears in no apparent distress. comfortable, Behavior is calm, cooperative. tp1 Pain: Complains of pain in right upper quadrant and left upper quadrant and chest Pain does not radiate. Pain currently is 6 out of 10 on a pain scale. Quality of pain is described as dull, Is continuous. Neuro: Level of Consciousness is awake, alert, obeys commands, Oriented to person, place, time, situation, Reports dizziness, "foggy". Cardiovascular: Reports chest pain, diaphoresis, fatigue, palpitations, Capillary refill < 3 seconds in bilateral fingers Patient's skin is warm and dry. Respiratory: Reports shortness of breath at rest and on exertion. PT states SOB increased when laying down Airway is patent Respiratory effort is even, unlabored. GI: Abdomen is obese, Reports diarrhea, nausea, vomiting. : No signs and/or symptoms were reported regarding the genitourinary system. EENT: No signs and/or symptoms were reported regarding the EENT system. Derm: Skin is pink, warm \\T\\ dry. Musculoskeletal: Circulation, motion, and sensation intact. 21:43 Reassessment: Patient appears in no apparent distress at this time. Patient and/or tp1 family updated on plan of care and expected duration. Pain level reassessed. Patient is alert, oriented x 3, equal unlabored respirations, skin warm/dry/pink. CO nausea. provider notified. Vital Signs: 20:22 Pulse 93 RA; Resp 20; Temp 98.0(O); Pulse Ox 98% on R/A; Weight 113.85 kg; Height 5 ft. kr3 7 in. (170.18 cm); Pain 7/10; 20:28 BP 91 / 74; kr3 23:04 BP 115 / 72; Pulse 99; Resp 17; Pulse Ox 100% on R/A; tp1 20:22 Body Mass Index 39.31 (113.85 kg, 170.18 cm) kr3 ED Course: 20:12 Patient arrived in ED. mr 20:12 Kamilla Mckee is Private Physician. mr 20:14 [facility]min [facility]-C [facility] kb 20:14 Jeffery Franco MD is Attending Physician. kb 20:28 Triage completed. kr3 20:36 Patient placed in an exam room, on a stretcher. kr3 20:41 Krystin Lynch, AJAY is Primary Nurse. tp1 20:52 EKG done. tp1 20:56 CMP Sent. mm9 20:56 Lipase Sent. mm9 20:56 XRAY Chest (1 view) Sent. mm9 20:56 CBC with Diff Sent. mm9 20:56 D-Dimer Sent. mm9 20:56 NT PRO-BNP Sent. mm9 20:56 Troponin HS Sent. mm9 20:56 Initial lab(s) drawn, by me, sent to lab. Inserted saline lock: 20 gauge in right mm9 antecubital area, using aseptic technique. Blood collected. 20:57 Patient has correct armband on for positive identification. Placed in gown. Bed in low mm9 position. Call light in reach. Side rails up X 1. Warm blanket given. bureau chief on. Pulse ox on. NIBP on. 20:57 EKG done, by ED staff, reviewed by Yasmin HERNANDEZ. mm9 21:04 XRAY Chest (1 view) In Process Unspecified. EDMS 23:05 No provider procedures requiring assistance completed. IV discontinued, intact, tp1 bleeding controlled, No redness/swelling at site. Pressure dressing applied. Administered Medications: 21:47 Drug: NS 0.9% 1000 ml Route: IV; Rate: 1000 ml; Site: right antecubital; tp1 23:04 Follow up: IV Status: Completed infusion; IV Intake: 700ml tp1 23:04 Drug: Zofran (Ondansetron) 4 mg Route: IVP; Site: right antecubital; tp1 23:04 Follow up: Response: Medication administered at discharge. tp1 Medication: 21:03 VIS not applicable for this client. tp1 Intake: 23:04 IV: 700ml; Total: 700ml. tp1 Outcome: 22:41 Discharge ordered by . chiquita 23:05 Discharged to home ambulatory. tp1 23:05 Condition: good 23:05 Discharge instructions given to patient, Instructed on discharge instructions, follow up and referral plans. medication usage, Demonstrated understanding of instructions, follow-up care, medications, Prescriptions given X 1. 23:06 Patient left the ED. tp1 Signatures: Dispatcher [employer] EDMS Yasmin Garcia FNP-C FNP-Ckb Rivera Marisol espinosa Krystin Lynch, RN RN tp1 Aparna Vides RN RN kr3 Heide Weaevr mm9
--- NOTE | 2022-09-03 22:42 | EDPHYS ---
Physician Documentation [facility] Name: Kasey Levy Age: 27 yrs Sex: Female : 1995 Arrival Date: 09/03/2022 Time: 20:12 Bed 18 Private MD: Kamilla Mckee ED Physician Jeffery Franco HPI: 09/03 22:39 This 27 yrs old Female presents to ER via Ambulatory with complaints of Palpitations. kb 22:39 The patient presents with a history of heart racing. Context: The symptoms occur at kb rest. Onset: The symptoms/episode began/occurred today. Duration: The patient or guardian reports multiple episodes. Modifying factors: The symptoms are aggravated by nothing. The symptoms are alleviated by nothing. Associated signs and symptoms: Pertinent positives: lightheadedness. Severity of symptoms: At their worst the symptoms were moderate in the emergency department the symptoms are unchanged. The patient has experienced similar episodes in the past. The patient has not recently seen a physician. Pt reports she has had palpitations on and off today with rate up to 125. States she has an appt with the diesel engine inspector next week for this because it has been going on for a long time. Also reports upper abd pain that is chronic and one episode of vomiting today. States she had an US of abd this mroning. Historical: - Allergies: 20:33 No Known Allergies; kr3 - PMHx: 20:33 None; kr3 - PSHx: 20:33 section; kr3 - Immunization history:: Adult Immunizations not up to date. - Social history:: Smoking status: Patient denies any tobacco usage or history of. ROS: 22:38 Constitutional: Negative for fever, chills, and weight loss. kb 22:38 Cardiovascular: Positive for palpitations. 22:38 Abdomen/GI: Positive for abdominal pain, nausea and vomiting. 22:38 All other systems are negative. Exam: 21:20 Constitutional: This is a well developed, well nourished patient who is awake, alert, kb and in no acute distress. Head/Face: Normocephalic, atraumatic. ENT: Moist Mucous membranes Chest/axilla: Normal chest wall appearance and motion. Cardiovascular: Regular rate and rhythm with a normal S1 and S2. No gallops, murmurs, or rubs. No pulse deficits. Respiratory: Respirations even and unlabored. No increased work of breathing. Talking in full sentences Abdomen/GI: Soft, non-tender. No distention Skin: Warm, dry with normal turgor. Normal color. MS/ Extremity: Pulses equal, no cyanosis. Neurovascular intact. Full, normal range of motion. Neuro: Awake and alert, GCS 15, oriented to person, place, time, and situation. Moves all extremities. Normal gait. Psych: Awake, alert, with orientation to person, place and time. Behavior, mood, and affect are within normal limits. 21:20 ECG was reviewed by the Attending Physician. Vital Signs: 20:22 Pulse 93 RA; Resp 20; Temp 98.0(O); Pulse Ox 98% on R/A; Weight 113.85 kg; Height 5 ft. kr3 7 in. (170.18 cm); Pain 7/10; 20:28 BP 91 / 74; kr3 23:04 BP 115 / 72; Pulse 99; Resp 17; Pulse Ox 100% on R/A; tp1 20:22 Body Mass Index 39.31 (113.85 kg, 170.18 cm) kr3 MDM: 20:28 Patient medically screened. kb 22:39 Data reviewed: vital signs, nurses notes. Data interpreted: Pulse oximetry: on room air kb is 98 %. Interpretation: normal. Counseling: I had a detailed discussion with the patient and/or guardian regarding: the historical points, exam findings, and any diagnostic results supporting the discharge/admit diagnosis, lab results, radiology results, the need for outpatient follow up, a family practitioner, to return to the emergency department if symptoms worsen or persist or if there are any questions or concerns that arise at home. 22:41 Data reviewed: old medical records, US abdomen showed fatty liver only. kb 09/03 20:28 Order name: CBC with Diff; Complete Time: 21:34 kb 09/03 20:28 Order name: D-Dimer; Complete Time: 21:34 kb 09/03 20:28 Order name: NT PRO-BNP; Complete Time: 21:38 kb 09/03 20:28 Order name: Troponin HS; Complete Time: 21:38 kb 09/03 20:28 Order name: Lipase; Complete Time: 21:38 kb 09/03 20:28 Order name: CMP; Complete Time: 21:38 kb 09/03 20:28 Order name: XRAY Chest (1 view); Complete Time: 21:12 kb 09/03 20:28 Order name: EKG; Complete Time: 20:30 kb 09/03 20:28 Order name: Cardiac monitoring; Complete Time: 20:56 kb 09/03 20:28 Order name: TSH; Complete Time: 21:38 kb 09/03 21:38 Order name: Urine Dipstick-Ancillary; Complete Time: 21:47 EDMS 09/03 20:28 Order name: EKG - Nurse/Tech; Complete Time: 20:52 kb 09/03 20:28 Order name: IV Saline Lock; Complete Time: 20:56 kb 09/03 20:28 Order name: Labs collected and sent; Complete Time: 20:56 kb 09/03 20:28 Order name: O2 Per Protocol; Complete Time: 20:56 kb 09/03 20:28 Order name: O2 Sat Monitoring; Complete Time: 20:56 kb 09/03 21:31 Order name: Urine Dipstick-Ancillary (obtain specimen); Complete Time: 21:33 tp1 09/03 21:31 Order name: Urine Test (obtain specimen); Complete Time: 21:33 tp1 EC:20 Rate is 91 beats/min. Rhythm is regular. QRS [place] is Normal. AL interval is normal at kb 170 msec. QRS interval is normal at 94 msec. QT interval is normal at 440 msec. Administered Medications: 21:47 Drug: NS 0.9% 1000 ml Route: IV; Rate: 1000 ml; Site: right antecubital; tp1 23:04 Follow up: IV Status: Completed infusion; IV Intake: 700ml tp1 23:04 Drug: Zofran (Ondansetron) 4 mg Route: IVP; Site: right antecubital; tp1 23:04 Follow up: Response: Medication administered at discharge. tp1 Disposition: 23:47 Co-signature as Attending Physician, Jeffery Franco MD I agree with the assessment and kdr plan of care. Disposition Summary: 09/03/22 22:41 Discharge Ordered Location: Home kb Condition: Stable kb Diagnosis - Palpitations kb Followup: kb - With: Emergency Department - When: As needed - Reason: Worsening of condition Followup: kb - With: Private Physician - When: 2 - 3 days - Reason: Recheck today's complaints, Continuance of care, Re-evaluation by your physician Discharge Instructions: - Discharge Summary Sheet kb - Palpitations, [id number] kb Forms: - Medication Reconciliation Form kb - Thank You Letter kb - Antibiotic Education kb - Prescription Opioid Use kb Prescriptions: - Zofran 4 mg Oral Tablet - take 1 tablet by ORAL route every 8 hours As needed; 20 tablet; Refills: 0, kb Product Selection Permitted Signatures: Dispatcher [employer] EDMS Yasmin Garcia FNP-C FNP-Ckb Rittger, Kevin, MD MD kdr Krystin Lynch RN RN tp1 Aparna Vides RN RN kr3
[2022-09-03] MEDS ORDERED: ONDANSETRON 4 MG/2 ML VIAL ONE (22:56)
[2022-09-03 23:13] VITALS: TEMP 98
[2022-09-03 23:15] VITALS: BP 115/72; O2SAT 100
--- NOTE | 2022-09-06 08:33 | EKG ---
Test Date: 2022-09-03 Test Time: 20:50:28 Info Specialist: YVONNE MEASUREMENT RESULTS: Intervals: Rate: 91 UT: 170 QRSD: 94 QT: 358 QTc: 440 [place]: P: 70 UT: 170 QRS: 43 T: 53 INTERPRETIVE STATEMENTS: Normal sinus rhythm Normal ECG Compared to ECG 01/04/2015 22:30:27 No significant changes Electronically Signed On 09-06-22 08:29:30 MARKETER by Jaquan Mcguire
== END 2022-09-03 23:06 | disposition home or self-care (01) ==
LOC: ER 20:09
DX: R00.2 Palpitations (principal)
CPT/HCPCS: 96361; 93005; 85025; 36415; 85379; 84443; 81003; 84484; 83690; 80053; 83880; 71045; 96374; 99285; J7030; J2405

== ENCOUNTER 2023-02-25 10:46 | Emergency (ER) | payer OTHER ==
--- OUTSIDE RECORDS SUMMARY | 2023-02-25 10:52 | XMS REPORT | Continuity of Care Document ---
:1995 Author Organization [facility] t Address [address] [place] [address] [address] [place] [address] Care Team Providers Name Role Phone Deb Rider Primary Care Physician LOY CHAKRABORTY Attending Clinician Unavailable Jeremiah Fenton Attending Clinician Unavailable Gijose antonioani_B Attending Clinician Unavailable EKABE, OBONORUMA IMARIA Attending Clinician Unavailable Ekabe, Obonoruma Imariabe Attending Clinician DILEEP SAUNDERS Attending Clinician Unavailable Dileep Saunders PA-C Attending Clinician 2, Adc Lab Attending Clinician Unavailable Doctor Unassigned, [place] Attending Clinician Unavailable Ebony Chan Attending Clinician Unavailable JOSE WATT Attending Clinician Unavailable ANNIE ELLIOTT Attending Clinician Unavailable Visit, Analilia Nurse Attending Clinician Unavailable Annie Giraldo Attending Clinician Lab, Analilia Attending Clinician Unavailable Ultrasound, Niko Attending Clinician Unavailable Kraig Kan MD Attending Clinician FELICITAS VUONG Attending Clinician Unavailable Risk, Iqk-Ayjvq-Pm/High Attending Clinician Unavailable Felicitas Rausch Attending Clinician Jeremiah Fenton Admitting Clinician Unavailable Gidvani_B Admitting Clinician Unavailable EKHAESE, OBONORUMA IMARIA Admitting Clinician Unavailable Ekhaese, Obonoruma Imariabe Admitting Clinician KNOW, DOES_NOT Admitting Clinician Unavailable Payers Payer Name Policy Type Policy Number Effective Date Expiration Date Pamela patton [facility] MEDICAID STAR [id number] 2020 00:00:00 [facility] [id number] 2020 CHOICE (MEDICAID 00:00:00 [facility] [id number] 2020 CHOICE AL STAR 00:00:00 MED[place]ID OF [place] [id number] 2020 00:00:00 Problems Condition Condition Condition Status Onset Resolution Last Treating Co mments Source Name Details Category Date Date Treatment Clinician Date E603.31 Diagnosis Active 2023-02-16 Me moria Active 4 15:53:00 l 01/31/2023 00:00: Christian anderson 00 [facility] LAP LAP Diagnosis Active 2023-02-18 Mem oria GASTRIC GASTRIC 01-31 12:11:00 l SLEEVE, SLEEVE, 00:00: [place] E66.01 E66.01 00 Active 01/31/2023 [facility] K21.9 K21.9 Diagnosis Active 2022-11-16 Mem oria Active 11-05 14:46:00 l 11/05/2022 00:00: Christian anderson [facility] 00 [place] EGD EGD Diagnosis Active 2022-11-17 Mem oria Active 1- 06:10:00 l 11/05/2022 00:00: Christian anderson [facility] 00 [place] E66.01 E66.01 Diagnosis Active 2021-102022-09-03 Me moria Active 0-12 12:43:00 l 08/11/2022 00:00: Christian anderson 00 [facility] Adult ADHD Adult ADHD Disease Active U nivers 5-28 ity of 00:00: [place] 00 Medical Branch Congestion Congestion Disease Active 2020-0 U nivers of nasal of nasal 5-12 ity of sinus sinus 00:00: [place] 00 Medical Branch Maternal Maternal Disease Active 2020-0 Overview: Un sky varicella, varicella, 4-16 Formattin ity of non-immune non-immune 00:00: g of this 00 note Medical might be Branch different from the original. Will address in Postpartu m. Supervisio Supervisio Disease Active 2020-0 U nivers n of high n of high 4-15 ity of risk risk 00:00: [place] , , 00 Me dical antepartum antepartum Br anch Previous Previous Disease Active 2020-0 Unive rs 4-15 ity of delivery delivery 00:00: [place] affecting affecting 00 Medi michael , , Br anch antepartum antepartum Multiparit Multiparit Disease Active 2020-0 U nivers y y 4-15 ity of 00:00: [place] 00 Medical Branch Ear pain, Ear pain, Disease Active 2020-0 Uni vers bilateral bilateral 4-15 ity of 00:00: [place] 00 Medical Branch Obesity in Obesity in Disease Active 2020-0 U nivers 4-15 ity of 00:00: [place] 00 Medical Branch Tachycardi Tachycard Problem Resolve 2023-02-14 Memoria a ia d 13:17:38 l (finding) (finding) Maria Dolores ch Resolved Problem 02/14/2023 [facility] Anxiety Anxiety Problem Active 2023-02-19 Me moria (finding) (finding) 23:37:27 l Active Haroldo Problem 02/19/2023 [facility] Attention Attention Problem Active 2023-02-19 Memoria deficit deficit 23:37:27 l hyperactiv hyperactiv He rmann ity ity disorder disorder (disorder) (disorder) Active Problem 02/19/2023 [facility] Body mass Body mass Problem Active 2023-02-19 Memoria index 30+ index 30+ 23:37:27 l - obesity - obesity Maria Dolores ch (finding) (finding) Active Problem 02/19/2023 BMI=39 [facility] Does use Does use Problem Active 2023-02-19 Memoria contact contact 23:37:27 l lenses lenses Haroldo (finding) (finding) Active Problem 02/19/2023 [facility] Lalito Problem Active 2023-02-19 Me moria thyroiditi Lalito 23:37:27 l s thyroiditi Christian n (disorder) s (disorder) Active Problem 02/19/2023 [facility] Sleep Sleep Problem Active 2023-02-19 Memor ia apnea apnea 23:37:27 l (finding) (finding) Herm jing Active Problem 02/19/2023 [facility] History of History Problem Active 2023-02-19 Memoria bariatric of 23:37:27 l surgical bariatric [place] nn procedure surgical (situation procedure ) (situation ) Active Problem 02/19/2023 [facility] MORBID MORBID Diagnosis Active 2023-02-18 Me moria (SEVERE) (SEVERE) 12:11:00 l OBESITY OBESITY [place] DUE TO DUE TO EXCESS CA EXCESS CA Active [facility] Disease Disease Problem Resolve 2023-02-14 M emoria caused by caused by d 13:17:38 l 2018-nCoV nCoV Herm jing Resolved Problem 02/14/2023 [facility] Gestationa Gestation Problem Resolve 2023-02-14 Memoria l diabetes al d 13:17:38 l mellitus diabetes Christian n (disorder) mellitus (disorder) Resolved Problem 02/14/2023 [facility] Heartburn Heartburn Problem Resolve 2023-02-14 Memoria (finding) (finding) d 13:17:38 l Resolved Haroldo Problem 02/14/2023 [facility] Allergies, Adverse Reactions, Alerts Allergy Allergy Status Severity Reaction(s) Onset Inactive Treating Comm ents Source Name Type Date Date Clinician No Known DA Active [facility] [place] No Known DA Active U 2019-1 [facility]ie 1-30 [facility] [place] No Known DA Active U 2020-1 [facility] Allergie 1-30 [facility] [place] No Known DA Active U 2019-1 [facility] Allergie 1-24 [facility] [place] No Known DA Active U 2020-1 [facility] Allergie 1-24 [facility] [place] NO KNOWN Drug Active Univers ALLERGIE Class ity of S [facility] Social History Social Habit Start Date Stop Date Quantity Comments Source ASSERTION 2020-01-08 University of 00:00:00 [facility] History of Passive smoker [facility] tobacco use [facility] History [facility] Alcohol Frequency History [facility] Alcohol Std Drinks History [facility] Alcohol Binge Exposure to 2022-10-30 2022-11-[address] [facility] SARS-CoV-2 00:00:00 09:41:00 [facility] (event) [place] Tobacco use and 2022-11-09 2022-11-09 Smokeless tobacco Un iversity of exposure 00:00:00 00:00:00 non-user [facility] Alcohol Comment 2022-11-09 2022-11-09 ocassional [facility] 00:00:00 00:00:00 [facility] Social History 2022-09-29 2022-09-29 [facility] ermann 07:58:51 07:58:51 Alcohol intake 2022-06-29 2022-06-29 .14 /d [facility] 00:00:00 00:00:00 Smoking Status Start Date Stop Date Source Unknown if ever smoked [facility] Tobacco smoking status [facility] Medications Ordered Filled Start Stop Current Ordering Indication Dosage Frequency Signature Comments Components Source Medication Medication Date Date Medication? Clinician (SIG) Name Name Tylenol Yes 10 ml, PO, [place] jocelin with 4-20 Q6H, PRN l Codeine 120 15:54: Pain, X 7 H ermann mg-12 mg/5 00 day, # 120 mL oral mL, 0 liquid Refill(s) Zofran 4 mg Yes 4 mg = 1 Me moria oral tablet 4-20 tab, PO, l 15:53: Q6H, PRN [place] 00 Nausea/Vom iting, X 5 day, # 20 tab, 0 Refill(s), Pharmacy: [facility] [id number], 170.18, cm, 02/09/23 9:39:00 CDT, Height, 117.136, kg, 02/09/23 9:39:00 CDT, Weight heparin Yes 5,000 Memoria 5000 4-13 unit, l units/mL 14:00: Route: Harold[place] injectable 00 SUB-Q, solution Drug form: INJ, Q12H, Dosing Weight 117.273, kg, Start date: 02/10/23 9:00:00 CDT, Duration: 30 day, Stop date: 03/11/23 21:00:00 CDT ceFAZolin 2022-0 Yes 3 gm, Memoria 4-13 Route: l 11:00: IVP, Haroldo 00 ONCALL, Dosing Weight 117.273, kg, (for patients < 100 kg), Start date: 02/10/23 6:00:00 CDT, Duration: 1 doses or times, ABX Indication : Surgical Prophylaxi s scopolamine 2022-0 Yes 1 patch, Me moria 1 mg/72 hr 4-13 Route: l transdermal 11:00: TOP, Drug H ermann film, 00 Form: extended ERFILM, release Dosing Weight 117.273, kg, PRE OP, Start date: 02/10/23 6:00:00 CDT, Duration: 30 day, Stop date: 03/12/23 5:59:00 CDT multivitami 2022-0 Yes Daily, 0 Me moria n 4-12 Refill(s) l 14:24: Vitamin B12 2022-0 Yes 0 Memori a 4-12 Refill(s) l 14:24: Tums 2022-0 Yes 500 mg, Memoria 1-11 CHEW, PRN, l 17:52: 0 Refill(s) Singulair 2022-0 Yes 10 mg = 1 Mem oria 10 mg oral 1-11 tab, PO, l tablet 17:51: QAM, 0 Refill(s) Vitamin D3 2022-0 Yes 1,250 Memori a 50,000 intl 1-11 microgram l units oral 17:51: = 1 cap, Her weinstein capsule 00 PO, qWeek Tylenol 2022-0 Yes 500 mg, Memoria 1-11 PO, PRN, 0 l 17:51: Refill(s) Adderall 20 2022-0 Yes 20 mg = 1 M emoria mg oral 1-11 tab, PO, l tablet 17:50: TID, 0 Refill(s) dextroamphe 0 Yes Take by Uni vers tamine/amph 1-10 mouth. ity of etamine 09:59: [place] (ADDERALL 24 Medical ORAL) Branch ergocalcife Yes Take by Uni vers rol, 1-10 mouth. ity of vitamin D2, 09:59: [place] (VITAMIN D 24 Medical ORAL) Branch montelukast Yes Take by Uni vers sodium 1-10 mouth. ity of (SINGULAIR 09:59: [place] ORAL) 24 Medical Branch dextroamphe Yes Take by Uni vers tamine/amph 1-10 mouth. ity of etamine 09:59: [place] (ADDERALL 24 Medical ORAL) Branch ergocalcife Yes Take by Uni vers rol, 1-10 mouth. ity of vitamin D2, 09:59: [place] (VITAMIN D 24 Medical ORAL) Branch montelukast Yes Take by Uni vers sodium 1-10 mouth. ity of (SINGULAIR 09:59: [place] ORAL) 24 Medical Branch dextroamphe Yes Take by Uni vers tamine/amph 1-10 mouth. ity of etamine 09:59: [place] (ADDERALL 24 Medical ORAL) Branch ergocalcife Yes Take by Uni vers rol, 1-10 mouth. ity of vitamin D2, 09:59: [place] (VITAMIN D 24 Medical ORAL) [facility] Take by Uni vers sodium 1-10 mouth. ity of (SINGULAIR 09:59: [place] ORAL) 24 Medical Branch dextroamphe Yes Take by Uni vers tamine/amph 1-10 mouth. ity of etamine 09:59: [place] (ADDERALL 24 Medical ORAL) Branch ergocalcife Yes Take by Uni vers rol, 1-10 mouth. ity of vitamin D2, 09:59: [place] (VITAMIN D 24 Medical ORAL) Branch montelukast Yes Take by Uni vers sodium 1-10 mouth. ity of (SINGULAIR 09:59: [place] ORAL) 24 Medical Branch amphetamine 0 Yes [place] -dextroamph 8-09 Health etamine 00:00: (Adderall) 00 30 MG tablet propranolol Yes [place] (Inderal) 7-29 Health 10 MG 00:00: tablet 00 Blood-Gluco 2020-0 Yes [id number] Use as Univers se Meter 8-24 directed ity of (FREESTYLE 00:00: [place] LITE METER) 00 Medical Kit Branch blood sugar 2020-0 Yes [id number] Use as Univers diagnostic 8-24 directed ity o f (FREESTYLE 00:00: [place] LITE 00 Medical STRIPS) Branch strip lancets 17 2020-0 Yes [id number] Use as U nivers gauge Misc 8-24 directed ity o f 00:00: [place] 00 Medical Branch Blood-Gluco 2020-0 Yes [id number] Use as Univers se Meter 8-24 directed ity of (FREESTYLE 00:00: [place] LITE METER) 00 Medical Kit Branch blood sugar 2020-0 Yes [id number] Use as Univers diagnostic 8-24 directed ity o f (FREESTYLE 00:00: [place] LITE 00 Medical STRIPS) Branch strip lancets 17 2020-0 Yes [id number] Use as U nivers gauge Misc 8-24 directed ity o f 00:00: [place] 00 Medical Branch Blood-Gluco 2020-0 Yes [id number] Use as Univers se Meter 8-24 directed ity of (FREESTYLE 00:00: [place] LITE METER) 00 Medical Kit Branch blood sugar 2020-0 Yes [id number] Use as Univers diagnostic 8-24 directed ity o f (FREESTYLE 00:00: [place] LITE 00 Medical STRIPS) Branch strip lancets 17 2020-0 Yes [id number] Use as U nivers gauge Misc 8-24 directed ity o f 00:00: [place] 00 Medical Branch Blood-Gluco 2020-0 Yes [id number] Use as Univers se Meter 8-24 directed ity of (FREESTYLE 00:00: [place] LITE METER) 00 Medical Kit Branch blood sugar 2020-0 Yes [id number] Use as Univers diagnostic 8-24 directed ity o f (FREESTYLE 00:00: [place] LITE 00 Medical STRIPS) Branch strip lancets 17 2020-0 Yes [id number] Use as U nivers gauge Misc 8-24 directed ity o f 00:00: [place] 00 Medical Branch Blood-Gluco 2020-0 Yes [id number] Use as Univers se Meter 8-24 directed ity of (FREESTYLE 00:00: [place] LITE METER) 00 Medical Kit Branch blood sugar 2020-0 Yes [id number] Use as Univers diagnostic 8-24 directed ity o f (FREESTYLE 00:00: [place] LITE 00 Medical STRIPS) Branch strip lancets 17 2020-0 Yes [id number] Use as U nivers gauge Misc 8-24 directed ity o f 00:00: [place] 00 Medical Branch Blood-Gluco 2020-0 Yes [id number] Use as Univers se Meter 8-24 directed ity of (FREESTYLE 00:00: [place] LITE METER) 00 Medical Kit Branch blood sugar 2020-0 Yes [id number] Use as Univers diagnostic 8-24 directed ity o f (FREESTYLE 00:00: [place] LITE 00 Medical STRIPS) Branch strip lancets 17 2020-0 Yes [id number] Use as U nivers gauge Misc 8-24 directed ity o f 00:00: [place] 00 Medical Branch Blood-Gluco 2020-0 Yes [id number] Use as Univers se Meter 8-24 directed ity of (FREESTYLE 00:00: [place] LITE METER) 00 Medical Kit Branch blood sugar 2020-0 Yes [id number] Use as Univers diagnostic 8-24 directed ity o f (FREESTYLE 00:00: [place] LITE 00 Medical STRIPS) Branch strip lancets 17 2020-0 Yes [id number] Use as U nivers gauge Misc 8-24 directed ity o f 00:00: [place] 00 Medical Branch Blood-Gluco 2020-0 Yes [id number] Use as Univers se Meter 8-24 directed ity of (FREESTYLE 00:00: [place] LITE METER) 00 Medical Kit Branch blood sugar 2020-0 Yes [id number] Use as Univers diagnostic 8-24 directed ity o f (FREESTYLE 00:00: [place] LITE 00 Medical STRIPS) Branch strip lancets 17 2020-0 Yes [id number] Use as U nivers gauge Misc 8-24 directed ity o f 00:00: [place] 00 Medical Branch Blood-Gluco 2020-0 Yes [id number] Use as Univers se Meter 8-24 directed ity of (FREESTYLE 00:00: [place] LITE METER) 00 Medical Kit Branch blood sugar 2020-0 Yes [id number] Use as Univers diagnostic 8-24 directed ity o f (FREESTYLE 00:00: [place] LITE 00 Medical STRIPS) Branch strip lancets 17 2020-0 Yes [id number] Use as U nivers gauge Mis 24 directed ity o f 00:00: [place] 00 Medical Branch colistin-ne 2020-0 Yes [id number] 1[drp] Place 1 Univers omycin-hc-t 4-15 Drop in ity o f honzonium 00:00: both ears Dave as (CORTISPORI 00 4 (four) Medi michael N-TC) times Branch 3.3-3-10-0. daily. 5 mg/mL otic drops 2020-0 Yes [id number] 1{packe Take 1 Univers vit 4-15 t} Packet by ity of 33-iron-fol 00:00: mouth [place] ic-dha 00 daily. Medical (SELECT-OB Branch + DHA) 29 mg iron-1 mg -250 mg combo pack colistin-ne 2020-0 Yes [id number] 1[drp] Place 1 Univers omycin-hc-t 4-15 Drop in ity o f honzonium 00:00: both ears Dave as (CORTISPORI 00 4 (four) Medi michael N-TC) times Branch 3.3-3-10-0. daily. 5 mg/mL otic drops 2020-0 Yes [id number] 1{packe Take 1 Univers vit 4-15 t} Packet by ity of 33-iron-fol 00:00: mouth [place] ic-dha 00 daily. Medical (SELECT-OB Branch + DHA) 29 mg iron-1 mg -250 mg combo pack colistin-ne 2020-0 Yes [id number] 1[drp] Place 1 Univers omycin-hc-t 4-15 Drop in ity o f honzonium 00:00: both ears Dave as (CORTISPORI 00 4 (four) Medi michael N-TC) times Branch 3.3-3-10-0. daily. 5 mg/mL otic drops 2020-0 Yes [id number] 1{packe Take 1 Univers vit 4-15 t} Packet by ity of 33-iron-fol 00:00: mouth [place] ic-dha 00 daily. Medical (SELECT-OB Branch + DHA) 29 mg iron-1 mg -250 mg combo pack colistin-ne 2020-0 Yes [id number] 1[drp] Place 1 Univers omycin-hc-t 4-15 Drop in ity o f hon[place]ium 00:00: both ears Dave as (CORTISPORI 00 4 (four) Medi michael N-TC) times Branch 3.3-3-10-0. daily. 5 mg/mL otic drops 2020-0 Yes [id number] 1{packe Take 1 Univers vit 4-15 t} Packet by ity of 33-iron-fol 00:00: mouth [place] ic-dha 00 daily. Medical (SELECT-OB Branch + DHA) 29 mg iron-1 mg -250 mg combo pack colistin-ne 2020-0 Yes [id number] 1[drp] Place 1 Univers omycin-hc-t 4-15 Drop in ity o f [place] 00:00: both ears Dave as (CORTISPORI 00 4 (four) Medi michael N-TC) times Branch 3.3-3-10-0. daily. 5 mg/mL otic drops 2020-0 Yes [id number] 1{packe Take 1 Univers vit 4-15 t} Packet by ity of 33-iron-fol 00:00: mouth [place] ic-dha 00 daily. Medical (SELECT-OB Branch + DHA) 29 mg iron-1 mg -250 mg combo pack colistin-ne 2020-0 Yes [id number] 1[drp] Place 1 Univers omycin-hc-t 4-15 Drop in ity o f [place] 00:00: both ears Dave as (CORTISPORI 00 4 (four) Medi michael N-TC) times Branch 3.3-3-10-0. daily. 5 mg/mL otic drops 2020-0 Yes [id number] 1{packe Take 1 Univers vit 4-15 t} Packet by ity of 33-iron-fol 00:00: mouth [place] ic-dha 00 daily. Medical (SELECT-OB Branch + DHA) 29 mg iron-1 mg -250 mg combo pack colistin-ne 2020-0 Yes [id number] 1[drp] Place 1 Univers omycin-hc-t 4-15 Drop in ity o f [place] 00:00: both ears Dave as (CORTISPORI 00 4 (four) Medi michael N-TC) times Branch 3.3-3-10-0. daily. 5 mg/mL otic drops 2020-0 Yes [id number] 1{packe Take 1 Univers vit 4-15 t} Packet by ity of 33-iron-fol 00:00: mouth [place] ic-dha 00 daily. Medical (SELECT-OB Branch + DHA) 29 mg iron-1 mg -250 mg combo pack colistin-ne 2020-0 Yes [id number] 1[drp] Place 1 Univers omycin-hc-t 4-15 Drop in ity o f [place] 00:00: both ears Dave as (CORTISPORI 00 4 (four) Medi michael N-TC) times Branch 3.3-3-10-0. daily. 5 mg/mL otic drops 2020-0 Yes [id number] 1{packe Take 1 Univers vit 4-15 t} Packet by ity of 33-iron-fol 00:00: mouth [place] ic-dha 00 daily. Medical (SELECT-OB Branch + DHA) 29 mg iron-1 mg -250 mg combo pack colistin-ne 2020-0 Yes [id number] 1[drp] Place 1 Univers omycin-hc-t 4-15 Drop in ity o f [place] 00:00: both ears Dave as (CORTISPORI 00 4 (four) Medi michael N-TC) times Branch 3.3-3-10-0. daily. 5 mg/mL otic drops 2020-0 Yes [id number] 1{packe Take 1 Univers vit 4-15 t} Packet by ity of 33-iron-fol 00:00: mouth [place] ic-dha 00 daily. Medical (SELECT-OB Branch + DHA) 29 mg iron-1 mg -250 mg combo pack colistin-ne 2020-0 Yes [id number] 1[drp] Place 1 Univers omycin-hc-t 4-15 Drop in ity o f [place] 00:00: both ears Dave as (CORTISPORI 00 4 (four) Medi michael N-TC) times Branch 3.3-3-10-0. daily. 5 mg/mL otic drops 2020-0 Yes [id number] 1{packe Take 1 Univers vit 4-15 t} Packet by ity of 33-iron-fol 00:00: mouth [place] ic-dha 00 daily. Medical (SELECT-OB Branch + DHA) 29 mg iron-1 mg -250 mg combo pack colistin-ne 2020-0 Yes [id number] 1[drp] Place 1 Univers omycin-hc-t 4-15 Drop in ity o f [place] 00:00: both ears Dave as (CORTISPORI 00 4 (four) Medi michael N-TC) times Branch 3.3-3-10-0. daily. 5 mg/mL otic drops 2020-0 Yes [id number] 1{packe Take 1 Univers vit 4-15 t} Packet by ity of 33-iron-fol 00:00: mouth [place] ic-dha 00 daily. Medical (SELECT-OB Branch + DHA) 29 mg iron-1 mg -250 mg combo pack colistin-ne 2020-0 Yes [id number] 1[drp] Place 1 Univers omycin-hc-t 4-15 Drop in ity o f [place] 00:00: both ears Dave as (CORTISPORI 00 4 (four) Medi michael N-TC) times Branch 3.3-3-10-0. daily. 5 mg/mL otic drops 2020-0 Yes [id number] 1{packe Take 1 Univers vit 4-15 t} Packet by ity of 33-iron-fol 00:00: mouth [place] ic-dha 00 daily. Medical (SELECT-OB Branch + DHA) 29 mg iron-1 mg -250 mg combo pack colistin-ne 2020-0 Yes [id number] 1[drp] Place 1 Univers omycin-hc-t 4-15 Drop in ity o f [place] 00:00: both ears Dave as (CORTISPORI 00 4 (four) Medi michael N-TC) times Branch 3.3-3-10-0. daily. 5 mg/mL otic drops 2020-0 Yes [id number] 1{packe Take 1 Univers vit 4-15 t} Packet by ity of 33-iron-fol 00:00: mouth [place] ic-dha 00 daily. Medical (SELECT-OB Branch + DHA) 29 mg iron-1 mg -250 mg combo pack colistin-ne 2020-0 Yes [id number] 1[drp] Place 1 Univers omycin-hc-t 4-15 Drop in ity o f [place] 00:00: both ears Dave as (CORTISPORI 00 4 (four) Medi michael N-TC) times Branch 3.3-3-10-0. daily. 5 mg/mL otic drops 2020-0 Yes [id number] 1{packe Take 1 Univers vit 4-15 t} Packet by ity of 33-iron-fol 00:00: mouth [place] ic-dha 00 daily. Medical (SELECT-OB Branch + DHA) 29 mg iron-1 mg -250 mg combo pack colistin-ne 2020-0 Yes [id number] 1[drp] Place 1 Univers omycin-hc-t 4-15 Drop in ity o f [place] 00:00: both ears Dave as (CORTISPORI 00 4 (four) Medi michael N-TC) times Branch 3.3-3-10-0. daily. 5 mg/mL otic drops 2020-0 Yes [id number] 1{packe Take 1 Univers vit 4-15 t} Packet by ity of 33-iron-fol 00:00: mouth [place] ic-dha 00 daily. Medical (SELECT-OB Branch + DHA) 29 mg iron-1 mg -250 mg combo pack colistin-ne 2020-0 Yes [id number] 1[drp] Place 1 Univers omycin-hc-t 4-15 Drop in ity o f [place] 00:00: both ears Dave as (CORTISPORI 00 4 (four) Medi michael N-TC) times Branch 3.3-3-10-0. daily. 5 mg/mL otic drops 2020-0 Yes [id number] 1{packe Take 1 Univers vit 4-15 t} Packet by ity of 33-iron-fol 00:00: mouth [place] ic-dha 00 daily. Medical (SELECT-OB Branch + DHA) 29 mg iron-1 mg -250 mg combo pack colistin-ne 2020-0 Yes [id number] 1[drp] Place 1 Univers omycin-hc-t 4-15 Drop in ity o f [place] 00:00: both ears Dave as (CORTISPORI 00 4 (four) Medi michael N-TC) times Branch 3.3-3-10-0. daily. 5 mg/mL otic drops 2020-0 Yes [id number] 1{packe Take 1 Univers vit 4-15 t} Packet by ity of 33-iron-fol 00:00: mouth [place] ic-dha 00 daily. Medical (SELECT-OB Branch + DHA) 29 mg iron-1 mg -250 mg combo pack colistin-ne 2020-0 Yes [id number] 1[drp] Place 1 Univers omycin-hc-t 4-15 Drop in ity o f [place] 00:00: both ears Dave as (CORTISPORI 00 4 (four) Medi michael N-TC) times Branch 3.3-3-10-0. daily. 5 mg/mL otic drops 2020-0 Yes [id number] 1{packe Take 1 Univers vit 4-15 t} Packet by ity of 33-iron-fol 00:00: mouth [place] ic-dha 00 daily. Medical (SELECT-OB Branch + DHA) 29 mg iron-1 mg -250 mg combo pack colistin-ne 2020-0 Yes [id number] 1[drp] Place 1 Univers omycin-hc-t 4-15 Drop in ity o f [place] 00:00: both ears Dave as (CORTISPORI 00 4 (four) Medi michael N-TC) times Branch 3.3-3-10-0. daily. 5 mg/mL otic drops 2020-0 Yes [id number] 1{packe Take 1 Univers vit 4-15 t} Packet by ity of 33-iron-fol 00:00: mouth [place] ic-dha 00 daily. Medical (SELECT-OB Branch + DHA) 29 mg iron-1 mg -250 mg combo pack colistin-ne 2020-0 Yes [id number] 1[drp] Place 1 Univers omycin-hc-t 4-15 Drop in ity o f [place] 00:00: both ears Dave as (CORTISPORI 00 4 (four) Medi michael N-TC) times Branch 3.3-3-10-0. daily. 5 mg/mL otic drops 2020-0 Yes [id number] 1{packe Take 1 Univers vit 4-15 t} Packet by ity of 33-iron-fol 00:00: mouth [place] ic-dha 00 daily. Medical (SELECT-OB Branch + DHA) 29 mg iron-1 mg -250 mg combo pack colistin-ne 2020-0 Yes [id number] 1[drp] Place 1 Univers omycin-hc-t 4-15 Drop in ity o f [place] 00:00: both ears Dave as (CORTISPORI 00 4 (four) Medi michael N-TC) times Branch 3.3-3-10-0. daily. 5 mg/mL otic drops 2020-0 Yes [id number] 1{packe Take 1 Univers vit 4-15 t} Packet by ity of 33-iron-fol 00:00: mouth [place] ic-dha 00 daily. Medical (SELECT-OB Branch + DHA) 29 mg iron-1 mg -250 mg combo pack colistin-ne 2020-0 Yes [id number] 1[drp] Place 1 Univers omycin-hc-t 4-15 Drop in ity o f [place] 00:00: both ears Dave as (CORTISPORI 00 4 (four) Medi michael N-TC) times Branch 3.3-3-10-0. daily. 5 mg/mL otic drops 2020-0 Yes [id number] 1{packe Take 1 Univers vit 4-15 t} Packet by ity of 33-iron-fol 00:00: mouth [place] ic-dha 00 daily. Medical (SELECT-OB Branch + DHA) 29 mg iron-1 mg -250 mg combo pack colistin-ne 2020-0 Yes [id number] 1[drp] Place 1 Univers omycin-hc-t 4-15 Drop in ity o f honzonium 00:00: both ears Dave as (CORTISPORI 00 4 (four) Medi michael N-TC) times Branch 3.3-3-10-0. daily. 5 mg/mL otic drops 2020-0 Yes [id number] 1{packe Take 1 Univers vit 4-15 t} Packet by ity of 33-iron-fol 00:00: mouth [place] ic-dha 00 daily. Medical (SELECT-OB Branch + DHA) 29 mg iron-1 mg -250 mg combo pack colistin-ne 2020-0 Yes [id number] 1[drp] Place 1 Univers omycin-hc-t 4-15 Drop in ity o f [place] 00:00: both ears Dave as (CORTISPORI 00 4 (four) Medi michael N-TC) times Branch 3.3-3-10-0. daily. 5 mg/mL otic drops 2020-0 Yes [id number] 1{packe Take 1 Univers vit 4-15 t} Packet by ity of 33-iron-fol 00:00: mouth [place] ic-dha 00 daily. Medical (SELECT-OB Branch + DHA) 29 mg iron-1 mg -250 mg combo pack colistin-ne 2020-0 Yes [id number] 1[drp] Place 1 Univers omycin-hc-t 4-15 Drop in ity o f [place] 00:00: both ears Dave as (CORTISPORI 00 4 (four) Medi michael N-TC) times Branch 3.3-3-10-0. daily. 5 mg/mL otic drops 2020-0 Yes [id number] 1{packe Take 1 Univers vit 4-15 t} Packet by ity of 33-iron-fol 00:00: mouth [place] ic-dha 00 daily. Medical (SELECT-OB Branch + DHA) 29 mg iron-1 mg -250 mg combo pack colistin-ne 2020-0 Yes [id number] 1[drp] Place 1 Univers omycin-hc-t 4-15 Drop in ity o f [place] 00:00: both ears Dave as (CORTISPORI 00 4 (four) Medi michael N-TC) times Branch 3.3-3-10-0. daily. 5 mg/mL otic drops 2020-0 Yes [id number] 1{packe Take 1 Univers vit 4-15 t} Packet by ity of 33-iron-fol 00:00: mouth [place] ic-dha 00 daily. Medical (SELECT-OB Branch + DHA) 29 mg iron-1 mg -250 mg combo pack colistin-ne 2020-0 Yes [id number] 1[drp] Place 1 Univers omycin-hc-t 4-15 Drop in ity o f [place] 00:00: both ears Dave as (CORTISPORI 00 4 (four) Medi michael N-TC) times Branch 3.3-3-10-0. daily. 5 mg/mL otic drops 2020-0 Yes [id number] 1{packe Take 1 Univers vit 4-15 t} Packet by ity of 33-iron-fol 00:00: mouth [place] ic-dha 00 daily. Medical (SELECT-OB Branch + DHA) 29 mg iron-1 mg -250 mg combo pack colistin-ne 2020-0 Yes [id number] 1[drp] Place 1 Univers omycin-hc-t 4-15 Drop in ity o f [place] 00:00: both ears Dave as (CORTISPORI 00 4 (four) Medi michael N-TC) times Branch 3.3-3-10-0. daily. 5 mg/mL otic drops 2020-0 Yes [id number] 1{packe Take 1 Univers vit 4-15 t} Packet by ity of 33-iron-fol 00:00: mouth [place] ic-dha 00 daily. Medical (SELECT-OB Branch + DHA) 29 mg iron-1 mg -250 mg combo pack colistin-ne 0 Yes [id number] 1[drp] Place 1 Univers omycin-hc-t 4-15 Drop in ity o f [place] 00:00: both ears Dave as (CORTISPORI 00 4 (four) Medi michael N-TC) times Branch 3.3-3-10-0. daily. 5 mg/mL otic drops 0 Yes [id number] 1{packe Take 1 Univers vit 4-15 t} Packet by ity of 33-iron-fol 00:00: mouth [place] ic-dha 00 daily. Medical (SELECT-OB Branch + DHA) 29 mg iron-1 mg -250 mg combo pack Vital Signs Vital Name Observation Time Observation Value Comments Source Systolic blood 2022-11-09 15:57:00 111 mm[Hg] [facility] Diastolic blood 2022-11-09 15:57:00 77 mm[Hg] [facility] Heart rate 2022-11-09 15:57:00 111 /min [facility] Body temperature 2022-11-09 15:57:00 37.11 Rosario [facility] height 2022-11-09 15:57:00 170.2 cm [facility] Body weight 2022-11-09 15:57:00 115.758 kg [facility] BMI 2022-11-09 15:57:00 39.97 kg/m2 [facility] Systolic blood 2022-06-29 15:05:00 121 mm[facility]Hg[facility] Diastolic blood 2022-06-29 15:05:00 83 mm[facility]Hg[facility] Heart rate 2022-06-29 15:05:00 90 [facility] 2022-06-29 15:05:00 [facility] weight 2022-06-29 15:05:00 [facility]791 [facility] BMI 2022-06-29 15:05:00 34.46 [facility] Systolic blood 2020-06-30 13:16:00 113 mm[Hg] Univer sity of pressure [facility] Diastolic blood 2020-06-30 13:16:00 70 mm[Hg] Unive rsity of pressure [facility] Heart rate 2020-06-30 13:16:00 110 /min Universi ty [facility] Body temperature 2020-06-30 13:16:00 36.61 Rosario Univ ersity of [facility] Respiratory rate 2020-06-30 13:16:00 16 /min Univ ersity of [facility] Body height 2020-06-30 13:16:00 170.2 cm [facility]i ty [facility] Body weight 2020-06-30 13:16:00 102.513 kg [facility] BMI 2020-06-30 13:16:00 35.40 kg/m2 [facility] Systolic blood 2020-06-30 13:16:00 113 mm[Hg] Univer sity of pressure [facility] Diastolic blood 2020-06-30 13:16:00 70 mm[Hg] Unive rsity of pressure [facility] Heart rate 2020-06-30 13:16:00 110 /min [facility]i ty [facility] Body temperature 2020-06-30 13:16:00 36.61 Rosario Univ ersity of [facility] Respiratory rate 2020-06-30 13:16:00 16 /min Univ ersity of [facility] Body height 2020-06-30 13:16:00 170.2 cm [facility] Body weight 2020-06-30 13:16:00 102.513 kg [facility] BMI 2020-06-30 13:16:00 35.40 kg/m2 [facility] Systolic blood 2020-06-17 15:43:00 118 mm[Hg] Univer sity of pressure [facility] Diastolic blood 2020-06-17 15:43:00 76 mm[Hg] Unive rsity of pressure [facility] Heart rate 2020-06-17 15:43:00 96 /min Universi ty [facility] Body temperature 2020-06-17 15:43:00 36.28 Rosario Univ ersity of [facility] Respiratory rate 2020-06-17 15:43:00 16 /min Univ ersity of [facility] Body height 2020-06-17 15:43:00 170.2 cm [facility] Body weight 2020-06-17 15:43:00 102.74 kg [facility] BMI 2020-06-17 15:43:00 35.47 kg/m2 [facility] Systolic blood 2020-05-13 18:05:00 126 mm[Hg] Univer sity of pressure [facility] Diastolic blood 2020-05-13 18:05:00 71 mm[Hg] Unive rsity of pressure [facility] Heart rate 2020-05-13 18:05:00 87 /min [facility]i ty [facility] Body temperature 2020-05-13 18:05:00 36.56 Rosario Univ ersity of [facility] Respiratory rate 2020-05-13 18:05:00 16 /min Univ ersity of [facility] Body height 2020-05-13 18:05:00 170.2 cm [facility] Body weight 2020-05-13 18:05:00 102.649 kg [facility] BMI 2020-05-13 18:05:00 35.44 kg/m2 [facility] Systolic blood 2020-04-14 21:00:00 129 mm[Hg] Univer sity of pressure [facility] Diastolic blood 2020-04-14 21:00:00 87 mm[Hg] Unive rsity of pressure [facility] Heart rate 2020-04-14 21:00:00 86 /min [facility] Body temperature 2020-04-14 21:00:00 36.67 Rosario Univ ersity of [facility] Respiratory rate 2020-04-14 21:00:00 16 /min Univ ersity of [facility] Body height 2020-04-14 21:00:00 170.2 cm [facility] Body weight 2020-04-14 21:00:00 103.137 kg [facility] BMI 2020-04-14 21:00:00 35.61 kg/m2 [facility] Systolic blood 2020-02-13 15:32:00 118 mm[Hg] Univer sity of pressure [facility] Diastolic blood 2020-02-13 15:32:00 67 mm[Hg] Unive rsity of [facility] Heart rate 2020-02-13 15:32:00 92 /min [facility] Body temperature 2020-02-13 15:32:00 36.89 Rosario [facility] Respiratory rate 2020-02-13 15:32:00 16 /min [facility] Body height 2020-02-13 15:32:00 170.2 cm [facility] Body weight 2020-02-13 15:32:00 104.441 kg [facility] BMI 2020-02-13 15:32:00 36.06 kg/m2 [facility] Heart Rate 2023-02-17 13:08:45 [facility] Temperature Oral (F) 2023-02-17 13:08:00 98.7 F [facility] [place] Systolic (mm Hg) 2023-02-17 13:06:53 Sandoval [facility] [place] Diastolic (mm Hg) 2023-02-17 13:06:53 Mem o[facility] [place] Weight 2023-02-16 12:56:00 [facility] [place] BMI Calculated 2023-02-16 12:56:00 [facility]ori [facility] Height 2023-02-09 14:39:00 5 [ft_i] [facility] [place] Weight 2023-02-09 14:39:00 [facility] [place] BMI Calculated 2023-02-09 14:39:00 Memori al [facility] Systolic (mm Hg) 2022-11-17 14:22:00 Sandoval rial [place] Diastolic (mm Hg) 2022-11-17 14:22:00 Mem orial [facility] Height 2022-11-16 20:56:00 5 [ft_i] [facility] Weight 2022-11-16 20:56:00 [facility] BMI Calculated 2022-11-16 20:56:00 Memori [facility] Procedures Procedure Date / Time Performing Source Performed Clinician ASSIGNMENT OF BENEFITS 2022-11-09 Doctor Unassigned, Univer sity of 15:43:20 [place] [facility] [id number] 2020-09-23 [facility] 00:00:00 [facility] POCT URINALYSIS 2020-06-17 Annie Elliott [place] of 15:51:00 [facility] POCT URINALYSIS 2020-06-[address] [facility] 15:50:00 [facility] POCT URINALYSIS 2020-05-[address] [facility] 00:00:00 [facility] POCT URINALYSIS 2020-04-[address] [facility] 21:13:00 [facility] GLUCOSE 1 HOUR POST PRANDIAL 2020-02-[address] [facility] 16:53:00 [facility] CBC WITH DIFFERENTIAL 2020-02-13 Annie Elliott Univers ity of 16:53:00 [facility] HEPATITIS B SURFACE ANTIGEN 2020-02-13 Annie Elliott U niversity of 16:53:00 [facility] HIV 1/2 AG-AB WITH REFLEX 2020-02-13 Annie Elliott Uni versity of 16:53:00 [facility] HB ABO GROUPING 2020-02-13 Annie Elliott [place] of 16:45:00 [facility] PAP SMEAR-LIQUID BASED-CP 2020-02-13 Annie Elliott Uni versity of 16:27:00 [facility] POCT TEST 2020-02-13 Annie Elliott Universit y of 15:34:00 [facility] POCT URINALYSIS 2020-02-13 Annie Elliott [place] of 15:33:00 [facility] ASSIGNMENT OF BENEFITS 2020-02-13 Doctor Unassigned, Univer sity of 15:13:36 [place] [facility] - Esophagogastrodu[facility] Encounters Start End Encounter Admission Attending Care Care Encounter Source Date/Time Date/Time Type Type Clinicians Facility Department ID 2022-09-03 Outpatient [id number] Memoria 20:12:22 [id number] [facility] [id number] [place] [id number] 2022-06-29 Outpatient [facility] [id number] [place] 09:59:21 [id number] [facility] 2022-06-03 Outpatient [facility] [id number] [place] 14:35:51 [id number] [facility] 2022-02-05 Outpatient MYLENE, [facility] [id number] [place] 09:43:36 SAYEEDA [id number] [facility] 2020-09-29 Inpatient [facility] [id number] [facility] 08:28:00 [facility] 2020-09-23 Inpatient AMINATA Fenton, [facility] [id number] [facility] 10:00:00 Jeremiah Womans [facility] 2023-02-21 2023-02-21 Outpatient Gidvani_B VFP VFP [id number] [facility] 00:00:00 00:00:00 [id number] Family Practic e 2023-02-16 2023-02-17 Inpatient [facility] [id number] Memoria 12:28:00 16:50:[address] [place] [address] 2023-02-16 2023-02-17 Inpatient EKHAESE, MHSE SHYANN [id number] MH 07:28:00 11:50:00 [facility] 2023-02-16 2023-02-17 Outpatient Ekhaese, MHSE MHSE [id number] 07:28:00 11:50:00 Obonoruma 01 Imariabe 2023-02-16 2023-02-16 Outpatient Ekhaese, MHSE MHSE [id number] 09:30:00 09:30:00 Obonoruma 01 Imariabe 2023-02-03 2023-02-03 Outpatient Gidvani_B VFP VFP [id number] [id number] [facility] 00:00:00 00:00:00 [id number] Family Practic e 2022-12-29 2022-12-29 Outpatient Gidvani_B VFP VFP [id number] [id number] [facility] 00:00:00 00:00:00 [id number] Family Practic e 2022-12-01 2022-12-01 Outpatient R CHIP [facility] [id number] Univers 15:00:00 15:00:00 DILEEP knapp [facility] 2022-11-30 2022-11-30 Outpatient R CHIP [facility] [id number] Univers 00:00:00 00:00:00 DILEEP knapp [facility] 2022-11-19 2022-11-19 Telephone Chip [facility] 1.2.840.114 [id number] Univers 00:00:00 00:00:00 Dileep CHIN [facility].1.13.10 [facility] 4.2.[place] [id number] [place] dical [facility] 134 [facility] 2022-11-17 2022-11-17 Bedded [facility] [id number] Memoria 12:10:00 14:43:00 Out[place] 00 [facility] [place] 2022-11-17 2022-11-17 Outpatient EKHAESE, MHBL SHYANN [id number] MHBL 06:10:00 08:43:00 OBONORUMA 2022-11-17 2022-11-17 Outpatient Ekhaese, MH[place] [id number] 06:10:00 08:43:00 Obonoruma 00 Imariabe 2022-11-12 2022-11-12 Outpatient Oskar SAUNDERS [facility] [id number] Univers 00:00:00 00:00:00 DILEEP knapp [facility] 2022-11-09 2022-11-09 Ring Stamper 2, Adc Lab [facility] 1.2.840.114 [id number] Univers 11:15:00 11:30:00 Visit Dileep Saunders 350.1.13.10 [place]7.2.686 [place] [id number] [place] dical [facility] 353 [facility] 2022-11-09 2022-11-09 Outpatient Oskar [facility] [id number] Univers 10:00:00 10:48:57 DILEEP knapp [facility] 2022-11-09 2022-11-09 [facility] [id number] Univers 10:00:00 10:48:57 Visit Dileep CHIN 350.1.13.10 i ty [place].2.7.2.686 [place] [id number] Me dical NAL [address] [place] [address] 2022-11-09 2022-11-09 Orders Doctor TASHA 1.2.840.114 [id number] Univers 00:00:00 00:00:00 Only Unassigned, ARUN 350.1.13.10 ity of [place] [facility] 4.2.7.2.686 Dave as [id number] [address] 2022-10-12 2022-10-12 Outpatient Oskar [facility]UN[facility] [id number] Univers 13:30:00 13:30:[facility] 2022-08-30 2022-09-29 Recurring [facility] [id number] Memoria 14:00:00 05:59:[address] [place] [address] [facility] 2022-08-30 2022-09-29 Recurring [facility] [id number] Memoria 14:00:00 05:59:[address] [place] 2022-08-30 2022-09-28 Outpatient EKABE, MHSE SHYANN [id number] MH 09:00:00 23:59:00 OBONORUMA [facility] 2022-08-30 2022-09-28 Outpatient Ekudayse, [facility] [id number] 09:00:00 23:59:00 Obonoruma 00 Imariabe 2022-09-13 2022-09-13 Outpatient Oskar [facility]UNDERS [facility] [id number] Univers 13:00:00 13:00:00 [facility] 2022-08-04 2022-08-04 Outpatient Oskar [facility]UNDERS [facility] [id number] Univers 09:00:00 09:00:00 [facility] 2022-07-29 2022-07-29 Outpatient Oskar SAUNDERS [facility] [id number] Univers 13:00:00 13:00:00 DILEEP knapp [facility] 2022-07-13 2022-07-13 Outpatient R CHIP [facility] [id number] Univers 10:00:00 10:00:00 DILEEP knapp [facility] 2022-06-29 2022-06-29 Office Mylene CECE LISETTE [id number] [place] 10:00:00 12:35:01 Visit Loy JONES 350.1.13.58 [facility] 9.2.7.2.686 SPECIALTY [id number] CLINIC 9 2022-01-15 2022-01-15 Emergency EM Martha Leon, [facility] KEVIN [id number] [facility] 17:24:00 18:34:00 Ebony [facility] 2021-09-30 2021-09-30 Outpatient R SHUKRI [facility] [id number] Univers 10:00:00 10:00:00 JOSE joshi [facility] 2020-09-19 2020-09-19 Outpatient Eliceo [facility] [id number] [facility] 10:00:00 10:00:00 Jeremiah [facility] [place] 2020-07-14 2020-07-14 [facility] [id number] Univers 12:45:00 12:45:00 ANNIE joshi [facility] 2020-07-14 2020-07-14 [facility] [id number] Univers 12:45:00 12:45:00 ANNIE knapp o [facility] 2020-06-30 2020-06-30 Outpatient R [facility] [id number] Univers 08:30:00 08:30:00 [facility] 2020-06-30 2020-06-30 Nurse Visit, Stephen-Rmchp Nurse [facility] 1.2 .840.114 [id number] Univers 08:04:52 08:19:52 Visit Annie Elliott METAL OR WOOD [employer]ER [facility].1.13.10 [facility] 4.2.7.2.686 Dave as MATERNAL [id number] [facility] ical & [place]ILD [address] [place] [address] 2020-06-30 2020-06-30 Nurse Visit, [facility] 1.2.840.114 [id number] 08:04:52 08:19:52 Visit Analilia METAL OR WOOD BLOCKER 350.1.13.10 Nurse REGIONAL 4.2.7.2.686 MATERNAL [id number] & CHILD [address] [place] [address] 2020-06-23 2020-06-23 Telephone Earl IAMATTY [id number] [id number] [facility] 00:00:00 00:00:00 Roshunda R METAL OR WOOD BLOCKER 350.1.13.10 ity of REGIONAL 4.2.7.2.686 Dave as MATERNAL [id number] Med ical & CHILD [address] [place] [address] 2020-06-23 2020-06-23 Telephone Earl IAMATTY [id number] [facility] 00:00:00 00:00:00 Roshunda R METAL OR WOOD BLOCKER 350.1.13.10 ity of REGIONAL 4.2.7.2.686 Dave as MATERNAL [id number] Med ical & CHILD [address] [place] [address] 2020-06-23 2020-06-23 Telephone Earl [facility] [id number] [id number] 00:00:00 00:00:00 Roshunda R METAL OR WO[employer] BLOCKER 350.1.13.10 REGIONAL 4.2.7.2.686 MATERNAL [id number] & CHILD [address] [place] [address] 2020-06-23 2020-06-23 Telephone Earl IAMATTY [id number] 00:00:00 00:00:00 Roshunda R METAL OR WOOD BLOCKER 350.1.13.10 REGIONAL 4.2.7.2.686 MATERNAL [id number] & CHILD [address] [place] [address] 2020-06-20 2020-06-20 Ring Stamper Lab, Analilia [facility] 1.2.840. 114 [id number] [facility] 07:58:46 08:45:00 Visit Elsie Elliottfawn R METAL OR WOOD BLOCKER 350.1.13.10 ity of REGIONAL 4.2.7.2.686 Dave as MATERNAL [id number] Med ical & CHILD [address] [place] [address] [place] 2020-06-20 2020-06-20 Outpatient R EARL [facility] [id number] Univers 08:15:00 08:15:00 ROSHUNDA ity o f [facility] 2020-06-18 2020-06-18 [facility] [id number] Univers 00:00:00 00:00:00 Roshunda R METAL OR WOOD BLOCKER 350.1.13.10 ity of REGIONAL 4.2.7.2.686 Dave as MATERNAL [id number] [facility] & [address] 2020-06-17 2020-06-17 Rout[facility] 1.2.840.114 [id number] Univers 10:25:25 11:09:57 Roshunda R METAL OR WOOD BLOCKER 350.1.13.10 ity of Visit REGIONAL 4.2.7.2.686 Dave as MATERNAL [phone] [facility] & [address] 2020-06-17 2020-06-17 Outpatient R EARL [facility] [id number] Univers 10:45:00 10:45:00 ROSHUNDA ity o f [facility] 2020-06-13 2020-06-13 Outpatient Oskar ELLIOTT [facility] [id number] Univers 08:45:00 08:45:00 ROSHUNDA ity o f [facility] 2020-06-09 2020-06-09 Outpatient R EARL [facility] [id number] Univers 12:45:00 12:45:00 ROSHUNDA ity o f [facility] 2020-06-09 2020-06-09 Outpatient R EARL [facility] [id number] Univers 12:45:00 12:45:00 ROSHUNDA ity o f [facility] 2020-05-13 2020-05-13 [facility] 1.2.840.114 [id number] Univers 12:54:09 13:09:09 Roshunda R METAL OR WOOD BLOCKER 350.1.13.10 ity of Visit REGIONAL 4.2.7.2.686 Dave as MATERNAL [id number] [facility] & CHILD [address] [place] [address] 2020-05-13 2020-05-13 Ring Stamper Ultrasound, Ang-Mfm [facility] 1.2 .840.114 [id number] Univers 11:01:46 12:28:32 Visit Kraig Kan METAL OR WOOD BLOCKER 350.1.13.10 ity of [facility] 4.2.7.2.686 Dave as MATERNAL [id number] Med ical & CHILD 369 [facility] 2020-05-13 2020-05-13 Outpatient R [facility] [id number] Univers 10:45:00 10:45:00 ity of [facility] 2020-05-13 2020-05-13 Abstract Earl [facility] 1.2.840.114 [id number] Univers 00:00:00 00:00:00 Annie Schmitt METAL OR WOOD BLOCKER 350.1.13.10 ity of [facility] 4.2.7.2.686 Dave as MATERNAL [id number] Med ical & CHILD [address] [place] [address] 2020-04-16 2020-04-16 Patient Doctor [facility] 1.2.840.114 [id number] Univers 00:00:00 00:00:00 Secure Msg Unassigned, METAL OR WOOD BLOCKER 350.1.13.10 ity of [place] REGIONAL 4.2.7.2.686 Dave as MATERNAL [id number] Med ical & CHILD [address] [place] [address] 2020-04-14 2020-04-14 Routine Earl [facility] 1.2.840.114 [id number] Univers 15:52:32 16:24:52 Annie Schmitt METAL OR WO[employer] BLOCKER 350.1.13.10 ity of Visit REGIONAL 4.2.7.2.686 Dave as MATERNAL [id number] Med ical & CHILD [address] [place] [address] 2020-04-14 2020-04-14 Outpatient R EARL [facility] [id number] Univers 15:45:00 15:45:00 ANNIE knapp o joaquín [facility] 2020-04-07 2020-04-07 Outpatient R EARL [facility] [id number] Univers 10:30:00 10:30:00 ANNIE victor [facility] 2020-04-04 2020-04-04 Telephone Earl [facility] [id number] Univers 00:00:00 00:00:00 Elsiefawn Schmitt METAL OR WOOD BLOCKER 350.1.13.10 ity of REGIONAL 4.2.7.2.686 Dave as MATERNAL [phone] [facility] ical & CHILD [address] [place] [address] 2020-03-27 2020-03-27 Outpatient R CAROLANN [facility] [id number] Univers 10:30:00 10:30:00 FELICITAS itkaro of [facility] 2020-03-27 2020-03-27 Telemedici Risk, Jeb-Ocnan-Oo/High [facility] 1.2.840.114 [id number] Univers 08:51:09 09:06:09 ne Visit Felicitas Vuong METAL OR WOOD BLOCKER 350.1.13.10 ity of [facility] 4.2.7.2.686 Dave as MATERNAL [phone] [facility] & CHILD [address] [place] [address] 2020-03-11 2020-03-11 [facility] [id number] Univers 13:30:00 13:30:00 MARCELLAROEL borregokaro o f [facility] 2020-03-11 2020-03-11 Tele[facility]ici [facility] 1.2.840.114 [id number] Univers 07:43:23 07:58:23 ne Visit Annie Oskar METAL OR WO[employer] BLOCKER 350.1.13.10 ity of [facility] 4.2.7.2.686 Dave as MATERNAL [id number] [facility] & CHILD [address] [place] [address] 2020-03-05 2020-03-05 Patient Doctor [facility] 1.2.840.114 [id number] Univers 00:00:00 00:00:00 Secure Msg Unassigned, METAL OR WOOD BLOCKER [id number] ity of [place] [facility] [id number] Dave as MATERNAL [phone] Med ical & CHILD [address] [place] [address] 2020-03-03 2020-03-03 Patient Doctor [facility] 1.2.840.114 [id number] Univers 00:00:00 00:00:00 Secure Msg Unassigned, METAL [employer] BLOCKER [id number] ity of [place] [facility] [id number] Dave as MATERNAL [phone] [facility] & CHILD [address] [place] [address] 2020-02-20 2020-02-20 Outpatient R [facility] [id number] Univers 13:15:00 13:15:00 ROSMARIPOSANDA ity o f [facility] 2020-02-15 2020-02-15 Patient Doctor [facility] [id number] Univers 00:00:00 00:00:00 Secure Msg Unassigned, METAL OR WOOD BLOCKER [id number] ity of [place] [facility] [id number] Dave as MATERNAL [phone] [facility] & CHILD [address] [place] [address] 2020-02-13 2020-02-13 [facility] [id number] Univers 10:21:32 11:23:31 Rosmariposanda R [employer] [id number] ity of Visit [facility] [id number] Dave as MATERNAL [phone] [facility] & CHILD [address] [place] [address] 2020-02-13 2020-02-13 [facility] [id number] Univers 09:45:00 09:45:00 MARCELLANDA ity o f [facility] 2020-02-13 2020-02-13 Orders Doctor TASHA [id number] Univers 00:00:00 00:00:00 Only Unassigned, ARUN [id number] ity of [place] [facility] [id number] Dave as [phone] [address] Results Test Description Test Time Test Comments Results Result Comments Source CHEMISTRY 2023-02-17 10:39:00 Test Item Value Reference Range Interpretation Comme nts Glucose Lvl (test code = Glucose Lvl) 111 70-99 [facility]whmyrzOTJNPDEQE1005-52-31 10:39:00 Test Item Value Reference Range Interpretation Comments BUN (test code = BUN) 7 7- [facility] CenterRcnetzqISFUDVPOX8445-57-22 10:39:00 Test Item Value Reference Range Interpretation Comments Creatinine Lvl (test code = Creatinine 0.51 0.50-1.40 Lvl) [facility]BrdbxxmVUQIAIFVB6561-45-88 10:39:00 Test Item Value Reference Range Interpretation Comments Sodium Lvl (test code = Sodium Lvl) 141 135-145 [facility]DbnmkbmQIEBPMQRW8636-43-13 10:39:00 Test Item Value Reference Range Interpretation Comments Potassium Lvl (test code = Potassium 3.3 3.5-5.1 Lvl) [facility] HospitalXaxsvfwVEQMGUWGD6205-94-59 10:39:00 Test Item Value Reference Range Interpretation Comments Chloride Lvl (test code = Chloride Lvl) 111 95-109 [facility] HospitalOujkasgWSAKISZST2248-24-83 10:39:00 Test Item Value Reference Range Interpretation Comments CO2 (test code = CO2) 24 24-32 [facility] HospitalOhdvdfgVDXSWMARC1611-81-14 10:39:00 Test Item Value Reference Range Interpretation Comments Calcium Lvl (test code = Calcium Lvl) 9.1 8.5-10.5 [facility] HospitalBzpjifuHMLLQZRYY8795-79-61 10:39:00 Test Item Value Reference Range Interpretation Comments Total Protein (test code = Total 7.1 6.4-8.4 Protein) [facility] HospitalAaewxdbXDJXWNIVM8826-99-32 10:39:00 Test Item Value Reference Range Interpretation Comments Albumin Lvl (test code = Albumin Lvl) 3.5 3.5-5.0 [facility] HospitalFgvbbpqGSKAYBQBR1541-51-41 10:39:00 Test Item Value Reference Range Interpretation Comments ALT (test code = ALT) 58 See_Comment [Auto mated message] The system which ge nerated this result transmit jessie reference range : <=65. The reference range was not used to interpr et this result as mary l/abnormal. [facility] HospitalFzvhjzyFTSFDMGQC2891-04-50 10:39:00 Test Item Value Reference Range Interpretation Comments AST (test code = AST) 30 See_Comment [Auto mated message] The system which ge nerated this result transmit jessie reference range : <=37. The reference range was not used to interpr et this result as mary l/abnormal. [facility] HospitalUqqoxaoBOWUHETMI2037-75-06 10:39:00 Test Item Value Reference Range Interpretation Comments Alk Phos (test code = Alk Phos) 81 39-136 [facility] HospitalKteiakiAMQVMKFTM9030-97-79 10:39:00 Test Item Value Reference Range Interpretation Comments Bili Total (test code = Bili Total) 0.5 0.2-1.3 [facility] HospitalFzuxvotQJQSWAAEM4824-52-53 10:39:00 Test Item Value Reference Range Interpretation Comments AGAP (test code = AGAP) 9.3 10.0-20.0 [facility] HospitalIublxffXKTRCTLFF9551-18-46 10:39:00 Test Item Value Reference Range Interpretation Comments B/C Ratio (test code = B/C Ratio) 14 1 6-25 [facility] HospitalXtbhulbAYVXBLMQZ7399-18-34 10:39:00 Test Item Value Reference Range Interpretation Comments Globulin (test code = Globulin) 3.6 2.7-4.2 [facility] HospitalTqhswutXOZJJUNAX3220-55-06 10:39:00 Test Item Value Reference Range Interpretation Comments A/G Ratio (test code = A/G Ratio) 1.0 1 0.7-1.6 [facility] HospitalTzsiowpMRMWTIGOU0696-92-38 10:39:00 Test Item Value Reference Range Interpretation Comments eGFR (test code = eGFR) 129 [facility]enWmewbxwRDRFCBWHDH3582-35-48 10:39:00 Test Item Value Reference Range Interpretation Comments Segs (test code = Segs) 68.1 45.0-75.0 [facility]lingenIdaaifiTALJEBUQAK1572-81-77 10:39:00 Test Item Value Reference Range Interpretation Comments Lymphocytes (test code = Lymphocytes) 23.0 20.0-40.0 [facility]enWpcfgqzJQTNHCBTLP7580-03-49 10:39:00 Test Item Value Reference Range Interpretation Comments Monocytes (test code = Monocytes) 8.1 2.0-12.0 [facility]enQqfpszkUXIPUBWXID5574-67-50 10:39:00 Test Item Value Reference Range Interpretation Comments Eosinophils (test code = 0.2 See_Comment [A utomated message] The Eosinophils) system which ge nerated this result tra nsmitted reference range : <=4.0. The reference r marleen was not used to int erpret this result as normal/abnormal . [facility]lingenOuextibVWIPSDFOHB8565-42-60 10:39:00 Test Item Value Reference Range Interpretation Comments Basophils (test code = 0.6 See_Comment [Aut omated message] The Basophils) system which ge nerated this result tra nsmitted reference range : <=1.0. The reference r marleen was not used to int erpret this result as normal/abnormal . [facility]lingenDmwxkadKEIJRQTWEJ1713-59-71 10:39:00 Test Item Value Reference Range Interpretation Comments Neutrophils # (test code = Neutrophils 5.1 1.5-8.1 #) [facility]lingenQfdmuwgAFONFCERYP8645-33-00 10:39:00 Test Item Value Reference Range Interpretation Comments Lymphocytes # (test code = Lymphocytes 1.7 1.0-5.5 #) [facility] HarlingenBatoulwQMDROXOSFG5872-19-66 10:39:00 Test Item Value Reference Range Interpretation Comments Monocytes # (test code 0.6 See_Comment [Aut omated message] The = Monocytes #) system which generated this result tra nsmitted reference range : <=0.8. The reference r marleen was not used to int erpret this result as normal/abnormal . [facility]lingenMzwcuwkNFKSWILQGW4628-10-58 10:39:00 Test Item Value Reference Range Interpretation Comments WBC (test code = WBC) 7.5 3.7-10.4 [facility] HarlingenLiyukvaDJUTSONBKQ1506-85-59 10:39:00 Test Item Value Reference Range Interpretation Comments RBC (test code = RBC) 3.95 4.20-5.40 [facility] HarlingenZqawkcxFTBTGSUVPC2912-52-44 10:39:00 Test Item Value Reference Range Interpretation Comments Hgb (test code = Hgb) 12.2 12.0-16.0 [facility]lingenCpmspxeOAADKZETTH4689-49-09 10:39:00 Test Item Value Reference Range Interpretation Comments Hct (test code = Hct) 36.2 36.0-48.0 [facility]enOepkyeaGJAMHBQNNT8462-40-64 10:39:00 Test Item Value Reference Range Interpretation Comments MCV (test code = MCV) 91.6 80.0-98.0 [facility]lingenKhlizivAESSXFHCLS5963-77-72 10:39:00 Test Item Value Reference Range Interpretation Comments MCH (test code = MCH) 30.9 pg 27.0-31.0 [facility]lingenMqteuujHFZOGGACVZ9454-75-96 10:39:00 Test Item Value Reference Range Interpretation Comments MCHC (test code = MCHC) 33.7 32.0-36.0 [facility]lingenEsfcmjlQEDLLMNRKC2266-42-45 10:39:00 Test Item Value Reference Range Interpretation Comments RDW (test code = RDW) 13.1 11.5-14.5 [place] 313653-04-20 10:39:00 Test Item Value Reference Range Interpretation Comments Platelet (test code = Platelet) 326 133-450 [place] 313653-04-20 10:39:00 Test Item Value Reference Range Interpretation Comments MPV (test code = MPV) 7.6 7.4-10.4 [place] 327233-04-19 13:23:00 Test Item Value Reference Range Interpretation Comments Glucose POC (test code = Glucose POC) 77 70-99 [place] 327233-04-19 13:23:00 Test Item Value Reference Range Interpretation Comments Gluc POC Comment 1 (test code Notified RN/MD = Gluc POC Comment 1) [place] [address]-04-19 13:02:00 Test Item Value Reference Range Interpretation Comments U Preg (test code = U Negative (02/16/23 8:02 Preg) AM) [address]04-13 15:40:00 Test Item Value Reference Range Interpretation Comments Lymphocytes # (test code = Lymphocytes 1.9 1.0-5.5 #) [place] [address]-04-13 15:40:00 Test Item Value Reference Range Interpretation Comments Monocytes # (test code 0.5 See_Comment [Aut omated message] The = Monocytes #) system which generated this result tra nsmitted reference range : <=0.8. The reference r marleen was not used to int erpret this result as normal/abnormal . [place] [address]-04-13 15:40:00 Test Item Value Reference Range Interpretation Comments Eosinophils # (test code 0.1 See_Comment [A utomated message] The = Eosinophils #) system whic h generated this result tra nsmitted reference range : <=0.5. The reference r marleen was not used to int erpret this result as normal/abnormal . [place] [address]-04-13 15:40:00 Test Item Value Reference Range Interpretation Comments Basophils # (test code 0.1 See_Comment [Aut omated message] The = Basophils #) system which generated this result tra nsmitted reference range : <=0.2. The reference r marleen was not used to int erpret this result as normal/abnormal . [place] [address]-04-13 15:40:00 Test Item Value Reference Range Interpretation Comments WBC (test code = WBC) 6.7 3.7-10.4 [facility]enOmhfkkkSZBVQLZACF0149-81-12 15:40:00 Test Item Value Reference Range Interpretation Comments RBC (test code = RBC) 4.36 4.20-5.40 [facility]lingenQrauculOQQDOUYHRP1962-99-31 15:40:00 Test Item Value Reference Range Interpretation Comments Hgb (test code = Hgb) 13.6 12.0-16.0 [facility]lingenDknmjqhEQOTXIZBBC9934-36-58 15:40:00 Test Item Value Reference Range Interpretation Comments Hct (test code = Hct) 40.3 36.0-48.0 [facility]lingenEoiibemDDVYAZZXPG1737-55-65 15:40:00 Test Item Value Reference Range Interpretation Comments MCV (test code = MCV) 92.4 80.0-98.0 [facility]lingenFlllihvOFZWEPZGOC0540-77-17 15:40:00 Test Item Value Reference Range Interpretation Comments MCH (test code = MCH) 31.1 pg 27.0-31.0 [facility]lingenGnvqtqmTMXGQATBCJ8250-32-13 15:40:00 Test Item Value Reference Range Interpretation Comments MCHC (test code = MCHC) 33.6 32.0-36.0 [facility]lingenSqfjrtkBVQXXSYMXS4654-80-42 15:40:00 Test Item Value Reference Range Interpretation Comments RDW (test code = RDW) 13.2 11.5-14.5 [facility] HarlingenVozoymjHKMKKFFDTT2764-48-08 15:40:00 Test Item Value Reference Range Interpretation Comments Platelet (test code = Platelet) 401 133-450 [facility] HarlingenDuddnkfKVAGFRCYJP8656-74-79 15:40:00 Test Item Value Reference Range Interpretation Comments MPV (test code = MPV) 7.7 7.4-10.4 [facility] HarlingenDganxhsHAIWYNMDDC8395-01-22 15:40:00 Test Item Value Reference Range Interpretation Comments PT (test code = PT) 13.0 s 12.0-14.7 [facility] HarlingenWvpbbxlZCSEARUMBY6425-08-43 15:40:00 Test Item Value Reference Range Interpretation Comments INR (test code = INR) 0.98 1 0.85-1.17 [facility] HarlingenSiywrgsFZLETWMDQQ1265-42-19 15:40:00 Test Item Value Reference Range Interpretation Comments PTT (test code = PTT) 27.1 s 22.9-35.8 [facility] HarlingenQdjzdopZDGTXEOMZR8768-04-11 15:40:00 Test Item Value Reference Range Interpretation Comments Eosinophils # (test code 0.1 See_Comment [A utomated message] The = Eosinophils #) system whic h generated this result tra nsmitted reference range : <=0.5. The reference r marleen was not used to int erpret this result as normal/abnormal . [facility] HarlingenXquuaifSGUSFQGSII7015-30-94 15:40:00 Test Item Value Reference Range Interpretation Comments Basophils # (test code 0.1 See_Comment [Aut omated message] The = Basophils #) system which generated this result tra nsmitted reference range : <=0.2. The reference r marleen was not used to int erpret this result as normal/abnormal . [facility]enOgurdqtCTPFTOKYAI8329-53-28 15:40:00 Test Item Value Reference Range Interpretation Comments PT (test code = PT) 13.0 s 12.0-14.7 [facility]lingenArnewvwKGIYLHNUUM3651-55-67 15:40:00 Test Item Value Reference Range Interpretation Comments INR (test code = INR) 0.98 1 0.85-1.17 [facility]lingenCkuasajTUHZEQRSWG2117-30-01 15:40:00 Test Item Value Reference Range Interpretation Comments PTT (test code = PTT) 27.1 s 22.9-35.8 [facility]FskqwlsBGLDVIJCAD5584-35-81 15:40:00 Test Item Value Reference Range Interpretation Comments Coronavirus (COVID-19) Not Detected (02/10/23 KARLO (test code = 10:40 AM) Coronavirus (COVID-19) KARLO) [facility]HndcxpxCHPQQFZMJV3736-47-57 15:40:00 Test Item Value Reference Range Interpretation Comments Coronavirus (COVID-19) Not Detected (02/10/23 KARLO (test code = 10:40 AM) Coronavirus (COVID-19) KARLO) [facility] AND [id number] 15:40:00 Test Item Value Reference Range Interpretation Comments UA Turbidity (test code = Clear (02/10/23 10:40 UA Turbidity) AM) [facility] AND [id number] 15:40:00 Test Item Value Reference Range Interpretation Comments UA Spec Grav (test code = UA Spec 1.020 1 Grav) [facility] AND [id number] 15:40:00 Test Item Value Reference Range Interpretation Comments UA pH (test code = UA pH) 5.0 1 5.0-8.0 [facility] AND [id number] 15:40:00 Test Item Value Reference Range Interpretation Comments UA Protein (test code = UA Negative mg/dL Protein) [facility] AND [id number] 15:40:00 Test Item Value Reference Range Interpretation Comments UA Glucose (test code = UA Negative mg/dL Glucose) [facility] AND [id number] 15:40:00 Test Item Value Reference Range Interpretation Comments UA Ketones (test code = UA Negative mg/dL Ketones) [facility] AND [id number] 15:40:00 Test Item Value Reference Range Interpretation Comments UA Bili (test code = Negative *NA*(02/10/23 UA Bili) 10:40 AM) [facility] AND [id number] 15:40:00 Test Item Value Reference Range Interpretation Comments UA Blood (test code = Small *ABN*(02/10/23 UA Blood) 10:40 AM) [facility] AND [id number] 15:40:00 Test Item Value Reference Range Interpretation Comments UA Nitrite (test code Negative (02/10/23 10:40 = UA Nitrite) AM) [facility] AND [id number] 15:40:00 Test Item Value Reference Range Interpretation Comments UA Leuk Est (test Negative (02/10/23 10:40 code = UA Leuk Est) AM) [facility] AND [id number] 15:40:00 Test Item Value Reference Range Interpretation Comments UA Ascorbic Acid (test Negative 2*NA*(02/10/23 code = UA Ascorbic 10:40 AM) Acid) [facility] AND [id number] 15:40:00 Test Item Value Reference Range Interpretation Comments UA Sq Epi (test code = UA Sq Occasional /LPF Epi) [facility] AND [id number] 15:40:00 Test Item Value Reference Range Interpretation Comments UA WBC (test code = 2 See_Comment [Automa jessie message] The UA WBC) system which ge nerated this result transmit jessie reference range : <=5. The reference range was not used to interpr et this result as mary l/abnormal. [facility] [id number] 15:40:00 Test Item Value Reference Range Interpretation Comments UA RBC (test code = 3 See_Comment [Automa jessie message] The UA RBC) system which ge nerated this result transmit jessie reference range : <=2. The reference range was not used to interpr et this result as mary l/abnormal. [facility] [id number] 15:40:00 Test Item Value Reference Range Interpretation Comments UA Color (test code = UA Color) Ltyellow [facility] AND [id number] 15:40:00 Test Item Value Reference Range Interpretation Comments UA Urobilinogen (test code = UA <=1.0 mg/dL 0.1-1.0 Urobilinogen) [facility] AND [id number] 15:40:00 Test Item Value Reference Range Interpretation Comments UA Turbidity (test code = Clear (02/10/23 10:40 UA Turbidity) AM) [facility] AND [id number] 15:40:00 Test Item Value Reference Range Interpretation Comments UA Spec Grav (test code = UA Spec 1.020 1 Grav) [facility] AND [id number] 15:40:00 Test Item Value Reference Range Interpretation Comments UA pH (test code = UA pH) 5.0 1 5.0-8.0 [facility] AND [id number] 15:40:00 Test Item Value Reference Range Interpretation Comments UA Protein (test code = UA Negative mg/dL Protein) [facility] AND [id number] 15:40:00 Test Item Value Reference Range Interpretation Comments UA Glucose (test code = UA Negative mg/dL Glucose) [facility] AND [id number] 15:40:00 Test Item Value Reference Range Interpretation Comments UA Ketones (test code = UA Negative mg/dL Ketones) [facility] AND [id number] 15:40:00 Test Item Value Reference Range Interpretation Comments UA Bili (test code = Negative *NA*(02/10/23 UA Bili) 10:40 AM) [facility] AND [id number] 15:40:00 Test Item Value Reference Range Interpretation Comments UA Blood (test code = Small *ABN*(02/10/23 UA Blood) 10:40 AM) [facility] [id number] 15:40:00 Test Item Value Reference Range Interpretation Comments UA Nitrite (test code Negative (02/10/23 10:40 = UA Nitrite) AM) [facility] [id number] 15:40:00 Test Item Value Reference Range Interpretation Comments UA Leuk Est (test Negative (02/10/23 10:40 code = UA Leuk Est) AM) [facility] [id number] 15:40:00 Test Item Value Reference Range Interpretation Comments UA Ascorbic Acid (test Negative 2*NA*(02/10/23 code = UA Ascorbic 10:40 AM) Acid) [facility] [id number] 15:40:00 Test Item Value Reference Range Interpretation Comments UA Sq Epi (test code = UA Sq Occasional /LPF Epi) [facility] [id number] 15:40:00 Test Item Value Reference Range Interpretation Comments UA WBC (test code = 2 See_Comment [Automa jessie message] The UA WBC) system which ge nerated this result transmit jessie reference range : <=5. The reference range was not used to interpr et this result as mary l/abnormal. [facility] AND [id number] 15:40:00 Test Item Value Reference Range Interpretation Comments UA RBC (test code = 3 See_Comment [Automa jessie message] The UA RBC) system which ge nerated this result transmit jessie reference range : <=2. The reference range was not used to interpr et this result as mary l/abnormal. [facility] [id number] 15:40:00 Test Item Value Reference Range Interpretation Comments UA Color (test code = UA Color) Ltyellow [facility] AND [id number] 15:40:00 Test Item Value Reference Range Interpretation Comments UA Urobilinogen (test code = UA <=1.0 mg/dL 0.1-1.0 Urobilinogen) [facility] [id number] 15:40:00 Test Item Value Reference Range Interpretation Comments U Preg (test code = U Negative (02/10/23 10:40 Preg) AM) [place] [address]-04-13 15:40:00 Test Item Value Reference Range Interpretation Comments Glucose Lvl (test code = Glucose Lvl) 97 70-99 [place] [address]-04-13 15:40:00 Test Item Value Reference Range Interpretation Comments BUN (test code = BUN) 18 7-22 [place] [address]-04-13 15:40:00 Test Item Value Reference Range Interpretation Comments Creatinine Lvl (test code = Creatinine 0.60 0.50-1.40 Lvl) [place] [address]-04-13 15:40:00 Test Item Value Reference Range Interpretation Comments Sodium Lvl (test code = Sodium Lvl) 136 135-145 [place] [address]-04-13 15:40:00 Test Item Value Reference Range Interpretation Comments Potassium Lvl (test code = Potassium 3.6 3.5-5.1 Lvl) [address]04-13 15:40:00 Test Item Value Reference Range Interpretation Comments Chloride Lvl (test code = Chloride Lvl) 109 95-109 [place] [address]-04-13 15:40:00 Test Item Value Reference Range Interpretation Comments CO2 (test code = CO2) 24 24-32 [place] [address]-04-13 15:40:00 Test Item Value Reference Range Interpretation Comments Calcium Lvl (test code = Calcium Lvl) 9.4 8.5-10.5 [place] [address]-04-13 15:40:00 Test Item Value Reference Range Interpretation Comments Total Protein (test code = Total 7.6 6.4-8.4 Protein) [place] [address]-04-13 15:40:00 Test Item Value Reference Range Interpretation Comments Albumin Lvl (test code = Albumin Lvl) 3.7 3.5-5.0 [place] [address]-04-13 15:40:00 Test Item Value Reference Range Interpretation Comments ALT (test code = ALT) 46 See_Comment [Auto mated message] The system which ge nerated this result transmit jessie reference range : <=65. The reference range was not used to interpr et this result as mary l/abnormal. [place] [address]-04-13 15:40:00 Test Item Value Reference Range Interpretation Comments AST (test code = AST) 17 See_Comment [Auto mated message] The system which ge nerated this result transmit jessie reference range : <=37. The reference range was not used to interpr et this result as mary l/abnormal. [facility] [id number] 15:40:00 Test Item Value Reference Range Interpretation Comments Alk Phos (test code = Alk Phos) 77 39-136 [facility] [id number] 15:40:00 Test Item Value Reference Range Interpretation Comments Bili Total (test code = Bili Total) 0.3 0.2-1.3 [place] 116123-04-13 15:40:00 Test Item Value Reference Range Interpretation Comments AGAP (test code = AGAP) 6.6 10.0-20.0 [place] 116123-04-13 15:40:00 Test Item Value Reference Range Interpretation Comments B/C Ratio (test code = B/C Ratio) 30 1 6-25 [facility] [id number] 15:40:00 Test Item Value Reference Range Interpretation Comments Globulin (test code = Globulin) 3.9 2.7-4.2 [facility] [id number] 15:40:00 Test Item Value Reference Range Interpretation Comments A/G Ratio (test code = A/G Ratio) 0.9 1 0.7-1.6 [place] [address]-04-13 15:40:00 Test Item Value Reference Range Interpretation Comments eGFR (test code = eGFR) 125 [facility] CenterShvqgzdSBBOZFXJQV1156-92-22 15:40:00 Test Item Value Reference Range Interpretation Comments Segs (test code = Segs) 62.0 45.0-75.0 [place] [address]-04-13 15:40:00 Test Item Value Reference Range Interpretation Comments Lymphocytes (test code = Lymphocytes) 28.3 20.0-40.0 [place] [address]-04-13 15:40:00 Test Item Value Reference Range Interpretation Comments Monocytes (test code = Monocytes) 6.9 2.0-12.0 [facility] CenterPvjvglrWBWMODZQDQ9624-15-28 15:40:00 Test Item Value Reference Range Interpretation Comments Eosinophils (test code = 2.0 See_Comment [A utomated message] The Eosinophils) system which ge nerated this result tra nsmitted reference range : <=4.0. The reference r marleen was not used to int erpret this result as normal/abnormal . [facility]lingenJzjuqwrYCLKMTLMSE0779-25-91 15:40:00 Test Item Value Reference Range Interpretation Comments Basophils (test code = 0.8 See_Comment [Aut omated message] The Basophils) system which ge nerated this result tra nsmitted reference range : <=1.0. The reference r marleen was not used to int erpret this result as normal/abnormal . [facility]OmngwkuLMHRLVAFMW4574-20-36 15:40:00 Test Item Value Reference Range Interpretation Comments Neutrophils # (test code = Neutrophils 4.2 1.5-8.1 #) [facility]rydukxUZIDOGNPI6835-15-35 20:51:00 Test Item Value Reference Range Interpretation Comments Glucose Lvl (test code = Glucose Lvl) 118 70-99 [facility] HospitalAwhuyxgDTLYHOEJH9961-34-24 20:51:00 Test Item Value Reference Range Interpretation Comments BUN (test code = BUN) 15 7-22 [facility] HospitalUwbpsfxORYYHSWDH2614-10-52 20:51:00 Test Item Value Reference Range Interpretation Comments Creatinine Lvl (test code = Creatinine 0.66 0.50-1.40 Lvl) [facility] HospitalQrgkkpyQOVBCLLWF5997-85-22 20:51:00 Test Item Value Reference Range Interpretation Comments Sodium Lvl (test code = Sodium Lvl) 139 135-145 [facility] HospitalDtspbpxJRRFSFMAR4666-52-73 20:51:00 Test Item Value Reference Range Interpretation Comments Potassium Lvl (test code = Potassium 3.8 3.5-5.1 Lvl) [facility] HospitalKrorgxuISDWAMEDM9996-19-77 20:51:00 Test Item Value Reference Range Interpretation Comments Chloride Lvl (test code = Chloride Lvl) 106 95-109 [facility] HospitalPndyfkpGTWUWNRIN1222-43-94 20:51:00 Test Item Value Reference Range Interpretation Comments CO2 (test code = CO2) 26 24-32 [facility] HospitalOykxmbeXBHLSISWJ6172-12-37 20:51:00 Test Item Value Reference Range Interpretation Comments Calcium Lvl (test code = Calcium Lvl) 8.9 8.5-10.5 [facility] HospitalBfooichYRXCTCRTL0820-35-18 20:51:00 Test Item Value Reference Range Interpretation Comments AGAP (test code = AGAP) 10.8 10.0-20.0 [place] 791483-01-17 20:51:00 Test Item Value Reference Range Interpretation Comments eGFR (test code = eGFR) 122 [place] 791483-01-17 20:51:00 Test Item Value Reference Range Interpretation Comments S Preg (test code = S Negative *NA*(11/16/22 Preg) 2:51 PM) [place] 313653-01-17 20:51:00 Test Item Value Reference Range Interpretation Comments Segs (test code = Segs) 62.0 45.0-75.0 [place] 313653-01-17 20:51:00 Test Item Value Reference Range Interpretation Comments Lymphocytes (test code = Lymphocytes) 27.6 20.0-40.0 [place] 313653-01-17 20:51:00 Test Item Value Reference Range Interpretation Comments Monocytes (test code = Monocytes) 7.5 2.0-12.0 [place] 313653-01-17 20:51:00 Test Item Value Reference Range Interpretation Comments Eosinophils (test code = 1.9 See_Comment [A utomated message] The Eosinophils) system which ge nerated this result tra nsmitted reference range : <=4.0. The reference r marleen was not used to int erpret this result as normal/abnormal . [place] 313653-01-17 20:51:00 Test Item Value Reference Range Interpretation Comments Basophils (test code = 1.0 See_Comment [Aut omated message] The Basophils) system which ge nerated this result tra nsmitted reference range : <=1.0. The reference r marleen was not used to int erpret this result as normal/abnormal . [facility]enYikbahzIFOGAZEGNZ8633-49-96 20:51:00 Test Item Value Reference Range Interpretation Comments Neutrophils # (test code = Neutrophils 4.6 1.5-8.1 #) [place] 313653-01-17 20:51:00 Test Item Value Reference Range Interpretation Comments Lymphocytes # (test code = Lymphocytes 2.1 1.0-5.5 #) [place] 313653-01-17 20:51:00 Test Item Value Reference Range Interpretation Comments Monocytes # (test code 0.6 See_Comment [Aut omated message] The = Monocytes #) system which generated this result tra nsmitted reference range : <=0.8. The reference r marleen was not used to int erpret this result as normal/abnormal . [facility]jdvhtgNPFLSAXIPC9118-[facility] 20:51:00 Test Item Value Reference Range Interpretation Comments Eosinophils # (test code 0.1 See_Comment [A utomated message] The = Eosinophils #) system whic h generated this result tra nsmitted reference range : <=0.5. The reference r marleen was not used to int erpret this result as normal/abnormal . [facility] CenterRfadjqkOEUXWFMGSM3602-27-41 20:51:00 Test Item Value Reference Range Interpretation Comments Basophils # (test code 0.1 See_Comment [Aut omated message] The = Basophils #) system which generated this result tra nsmitted reference range : <=0.2. The reference r marleen was not used to int erpret this result as normal/abnormal . [facility]enHsbyrgmDYSUDBRYDI5767-94-44 20:51:00 Test Item Value Reference Range Interpretation Comments WBC (test code = WBC) 7.5 3.7-10.4 [facility]enGcggqnsTGGJFYUNGZ9048-59-07 20:51:00 Test Item Value Reference Range Interpretation Comments RBC (test code = RBC) 4.24 4.20-5.40 [facility]lingenZqpbfuuCMWRUTFIWK9128-43-43 20:51:00 Test Item Value Reference Range Interpretation Comments Hgb (test code = Hgb) 13.4 12.0-16.0 [facility]enPsqopyaABSFVNJTGZ7762-64-02 20:51:00 Test Item Value Reference Range Interpretation Comments Hct (test code = Hct) 39.8 36.0-48.0 [facility]enWkuaymkHMDHLXPBCE9707-02-98 20:51:00 Test Item Value Reference Range Interpretation Comments MCV (test code = MCV) 93.9 80.0-98.0 [facility]enDixrczxIJMKEIGZZH7545-48-21 20:51:00 Test Item Value Reference Range Interpretation Comments MCH (test code = MCH) 31.6 pg 27.0-31.0 [place] 313653-01-17 20:51:00 Test Item Value Reference Range Interpretation Comments MCHC (test code = MCHC) 33.7 32.0-36.0 [facility]enXffcmdxBOMWGXQMJD5213-56-90 20:51:00 Test Item Value Reference Range Interpretation Comments RDW (test code = RDW) 13.1 11.5-14.5 [facility]enAbvpuxbBECPXBUGTK2199-61-92 20:51:00 Test Item Value Reference Range Interpretation Comments Platelet (test code = Platelet) 374 133-450 [facility]lingenGmdsybbZLYCPRJHIT1145-58-63 20:51:00 Test Item Value Reference Range Interpretation Comments MPV (test code = MPV) 7.9 7.4-10.4 [facility] C[facility] IF [id number] 19:59:00 Test Item Value Reference Range Interpretation Comments UA COLOR (test code = COLU) YELLOW YELLOW UA APPEARANCE (test code = CLEAR CLEAR APPU) UA GLUCOSE DIPSTICK (test code NEGATIVE NEG = DGLUU) UA BILIRUBIN DIPSTICK (test NEGATIVE NEG code = BILU) UA KETONE DIPSTICK (test code NEGATIVE NEG = KETU) UA SPECIFIC GRAVITY (test code 1.025 1.001-1.035 N = SGU) UA BLOOD DIPSTICK (test code = 2+ NEG A CANDICE) UA PH DIPSTICK (test code = 6.0 5-9 CHELITA) UA PROTEIN DIPSTICK (test code NEGATIVE NEG = PROU) UA UROBILINIOGEN DIPSTICK NEGATIVE mg/dL NEG (test code = URO) UA NITRITE DIPSTICK (test code NEG NEG = CLAUDIA) UA LEUKOCYTE ESTERASE DIPSTICK NEG NEG (test code = LEUU) UA WBC (test code = WBCU) 0-2 #/hpf NONE SEEN UA EPITHELIAL CELLS (test code RARE #/HPF RARE-FEW = EPIU) UA RBC (test code = RBCU) 3-5 #/hpf NONE SEEN A UA MUCUS (test code = MUCU) RARE NONE SEEN Indication for culture: Dysuria/FrequencySpecimen Description: CLEAN CATCHUR HCG [id number] 19:59:00 Test Item Value Reference Range Interpretation [...] culture: Dysuria/FrequencySpecimen Description: CLEAN CATCHDRUGS OF ABUSE [id number] 19:56:00 Test Item Value Reference Range Interpretation [...] code = PHENCU) ng/mL - CT ANGIO [id number] 11:16:00 [facility] : 1995 Sex: F Patient Name: ABNER NOYOLA Unit No: [id number] EXAMS: CPT CODE: [id number] CT ANGIO CHEST 33357 CT SCAN OF THE CHEST WITH CONTRAST [...] neck are unremarkable. IMPRESSION: No pulmonary emboli identified. Prominent pulmonary vasculature and pleural effusions are suggestive of fluid overload. Mildly prominent heart. The [facility] NAME: ANDRA NOYOLAN Radiology Department PHYS: Kervin Rodríguez [address] : 1995 AGE: 25 SEX: F [place], [place] [address] LOC: SANDRA PHONE #: [phone] EXAM DATE: 09/29/2020 STATUS: REG ER FAX #: [phone] RAD NO: Page 1 Signed Report 1 Patient Name: ABNER NOYOLA Unit No: [id number] EXAMS:CPT CODE: [id number] CT ANGIO CHEST 91878 (Continued) at 1116 Reported and signed by: Stella Diaz MD CC: Kervin Rosa MD; Jeremiah Fenton Technologist: Fernandez Chatman RT, CT CTDI: 17.86 DLP: 558.03 Trnscrbd D/ (1116) Jocelyne [facility] NAME: ABNER NOYOLA Radiology Department PHYS: DANDY Kervin Rosa [address] : 1995 AGE: 25 SEX: F [place] [address] LOC: Joaquín.ERS PHONE #: [phone] EXAM DATE: 09/29/2020 STATUS: REG ER FAX #: [phone] RAD NO: Page 2 Signed Report 1 Patient Name: ABNER NOYOLA Unit No: [id number] EXAMS: CPT CODE: [id number] CT ANGIO CHEST 20064 (Continued) Orig Print D/T: S: 09/29/2020 (1119) [facility] NAME: ABENR NOYOLA Radiology Department PHYS: DANDY Kervin Rosa [address] : 1995 AGE: 25 SEX: F [place] [address] LOC: Joaquín.ERS PHONE #: [phone] EXAM DATE: 09/29/2020 STATUS: REG ER FAX #: [phone] RAD NO: Page 3 Signed Report 1D- DIMER [id number] 10:05:00 Test Item Value Reference Range Interpretation Comments D-DIMER QUANT 853 ng/mLDDU <255 H Reference Ra nge in (test code = : <570 DDIMER) ng/ml A positive test d oes not provide a defin itive diagnosis ofDVT and indicates the n eed for follow up clini michael studies. The pr edictive value of a nega tive test is 98% for rulingout DVT. - XR CHEST 1 [id number] 10:03:00 [facility] : 1995 Sex: F Patient Name: ABNER NOYOLA Unit No: [id number] EXAMS: CPT CODE: [id number] XR CHEST 1 V 03912 Clinical Indication: Shortness of breath after section [...] Low lung volumes. No consolidative pneumonia. SL: [id number] at 1003 Reported and signed by: Tyler Lewis MD CC: Kervin Rosa MD; Jeremiah Fenton Technologist: Angely Koroma RT, CT Trnscrbd D/ (1003) t.[id number] Orig Print D/T: S: 09/29/2020 (1006) [facility] NAME: ABNER NOYOLA Radiology Department PHYS: Kervin Rodríguez [address] : 1995 AGE: 25 SEX: F [place] [address] LOC: SANDRA PHONE #: [phone] EXAM DATE: 09/29/2020 STATUS: REG ER FAX #: [phone] RAD NO: Page 1 Signed ReportB-TYPE NATRIURETIC [id number] 09:48:00 Test Item Value Reference Range Interpretation Comments B-TYPE NATRIURETIC PEPTIDE (test 383.61 pg/mL 0-100 H code = BNP) DRUGS OF ABUSE [id number] 09:43:00 Test Item Value Reference Range Interpretation [...] = PHENCU) 25 ng/m L COMPREHENSIVE METABOLIC [id number] 09:42:00 Test Item Value Reference Range Interpretation Comments SODIUM (test code = 143 mEq/L 135-145 N NA) POTASSIUM (test code 2.7 mEq/L 3.5-5.0 LL RESULTS VERIFIED BY = K) REPEAT ANALYSIS RESULTS CALLED TO ELVIN GUZMANREAD BACK & CONFIRME D? YES.BY ASHTYN Estrada 09/29/20924. CHLORIDE (test code 105 mEq/L 100-115 [...] 46-116 N TOTAL (test code = ALKP) [id number] 09:42:00 Test Item Value Reference Range Interpretation Comments TROPONIN-I (test code = TROPI) 0.053 ng/mL <0.056 N COMPREHENSIVE METABOLIC [id number] 09:25:00 Test Item Value Reference Range Interpretation Comments SODIUM (test code = 143 mEq/L 135-145 N NA) POTASSIUM (test code 2.7 mEq/L 3.5-5.0 LL RESULTS VERIFIED BY = K) REPEAT ANALYSIS RESULTS CALLED TO ELVIN GUZMANREAD BACK & CONFIRME D? YES.BY ASHTYN Estrada 09/29/20924. CHLORIDE (test code 105 mEq/L 100-115 [...] units/L 46-116 TOTAL (test code = ALKP) [id number] 09:25:00 Test Item Value Reference Range Interpretation Comments TROPONIN-I (test code = TROPI) 0.053 ng/mL <0.056 N UA RFLX MICR CULT IF [id number] 09:21:00 Test Item Value Reference Range Interpretation [...] culture: Suprapubic PainSpecimen Description: CLEAN CATCHCBC W/AUTO [id number] 09:08:00 Test Item Value Reference Range Interpretation [...] REQUIRED (test NORMAL NORMAL code = PLTMR) [id number] 06:36:00 Test Item Value Reference Range Interpretation Comments GLUBED (test code = GLUBED) 82 mg/dL 65-110 N HGB [id number] 04:50:00 Test Item Value Reference Range Interpretation Comments HEMOGLOBIN (test code = HGB) 8.1 g/dL 10.7-13.9 L HEMATOCRIT (test code = HCT) 25.2 % 32.1-42.1 L [id number] 04:43:00 Test Item Value Reference Range Interpretation Comments GLUBED (test code = GLUBED) 98 mg/dL 65-110 N [id number] 12:00:00 Test Item Value Reference Range Interpretation Comments GLUCOSE (test code = GLU) 81 mg/dL 65-110 N AG HEPATITIS B [id number] 14:40:00 Test Item Value Reference Range Interpretation Comments AG HEPATITIS B SURFACE (test code NONREACTIVE NONREACTIVE = HBSAG) : *IS CONSENT FORM SIGNED FOR HIV TESTING? YAB HEPATITIS C [id number] 14:40:00 Test Item Value Reference Range Interpretation Comments AB HEPATITIS C (test code = NONREACTIVE NONREACTIVE HCVAB) SIGNAL TO CUTOFF (test code = 0.07 <0.80 N CUTOFF) : *IS CONSENT FORM SIGNED FOR HIV TESTING? YAB [id number] 14:40:00 Test Item Value Reference Range Interpretation Comments AB TREPONEMA (test code = TREPAB) NONREACTIVE NONREACTIVE : *IS CONSENT FORM SIGNED FOR HIV TESTING? YAB HIV 1 14:40:00 Test Item Value Reference Range Interpretation Comments AB HIV 1 2 (test NONREACTIVE NONREACTIVE [facility] = ELY44GN) 4th Gen HIV Ag/Ab Combo Screen : [...] ncy Use Authorization(E UA) for use by kojoato leonor certified under the CLIA thatmeet the [...] and/o r diagnosis of CO VID-19 under Nqtqwcm79 4(b)(1) of the Act, 21 U.S .C. 360bbb-3(b)(1), unless theauthorizatio n is terminated or r evoked sooner. CBC W/AUTO [id number] 13:26:00 Test Item Value Reference Range Interpretation [...] code = PLTMR) POCT URINALYSIS W SPECIFIC [id number] 15:52:00 Test Item Value Reference Range Interpretation [...] POCT U APPEAR (test code = 3267) [facility] URINALYSIS W SPECIFIC [id number] 15:52:00 Test Item Value Reference Range Interpretation [...] POCT U APPEAR (test code = 3267) [facility] URINALYSIS W SPECIFIC [id number] 15:52:00 Test Item Value Reference Range Interpretation [...] POCT U APPEAR (test code = 3267) [facility] URINALYSIS W SPECIFIC [id number] 15:50:00 Test Item Value Reference Range Interpretation [...] POCT U APPEAR (test code = 3267) [facility] URINALYSIS W SPECIFIC [id number] 15:50:00 Test Item Value Reference Range Interpretation [...] POCT U APPEAR (test code = 3267) [facility] URINALYSIS W SPECIFIC [id number] 15:50:00 Test Item Value Reference Range Interpretation [...] POCT U APPEAR (test code = 3267) [facility] URINALYSIS W SPECIFIC [id number] 18:13:00 Test Item Value Reference Range Interpretation [...] 3267) Lab Interpretation (test code = Abnormal 51556-7) [facility] [id number] 21:14:00 Test Item Value Reference Range Interpretation [...] POCT U APPEAR (test code = 3267) [facility] HospitalPRENATAL WORKUP, BLOOD [id number] 07:50:47 Test Item Value Reference Range Interpretation Comments ABO & RH (test code O POSITIVE Performe d at [facility] = 20) Laboratory Serv [facility] s [address]Pidb Free: [phone] A No. [id number] IAT (test code = Negative Performed a t [facility] 1185) Laboratory Serv [facility] [address] [place] [address] s [address]Vvtr Free: [phone] A No. [id number] [facility]HIV [facility]2 AG-AB WITH [id number] 06:35:00 Test Item Value Reference Range Interpretation Comments HIV Negative Negative Semi-quantitative (test code = 13485-1) TERRELL (test code = Non-reactive for HIV-1 TERRELL) antigen and HIV-1/HIV-2 antibodies. ?No laboratory evidence of HIV infection. ?Repeat in 2-4 weeks if acute HIV infection is suspected. [facility]HEPAT[facility]IS [facility] SURFACE [id number] 05:34:00 Test Item Value Reference Range Interpretation Comments HBsAg Semi-Quantitative (test code = Negative Negative 5195-3) [facility] HospitalGLU[facility]SE 1 HOUR POST [id number] 05:05:00 Test Item Value Reference Range Interpretation Comments GLUC 1 HR (test code = 8744976209) 98 mg/dL 120-170 L Lab Interpretation (test code = Abnormal 34441-4) [facility] HospitalCB WITH [id number] 04:35:00 Test Item Value Reference Range Interpretation Comments WBC (test code = See_Comment [Automated 6690-2) message] The sy stem which generated this result transmitted reference range : 4.30 - 11.10 10*3/?L. The reference range was not used to interpret this result as normal/abnormal . RBC (test code = See_Comment L [Automated 789-8) message] The sy stem which generated this [...] RDW-SD (test code = 43.6 fL 39-49.9 44609-2) RDW-CV (test code = 12.1 % 12-15.5 788-0) PLT (test code = See_Comment [Automated 777-3) message] The sy stem which generated this result transmitted reference range : 166 - 358 10*3/ ?L. The reference r marleen was not used to interpret this result as normal/abnormal . MPV (test code = 9.9 fL 9.5-12.9 69186-2) NRBC/100 WBC (test See_Comment [Automat ed code = 0924649661) message] The system which generated this result transmitted reference range : 0.0 - 10.0 /100 WBCs. The refer ence range was not u sed to interpret th is result as normal/abnormal . NRBC x10^3 (test code <0.01 See_Comment [Auto mated = [id number]) message] The s ystem which generated this result transmitted reference range : 10*3/?L. The reference range was not used to interpret this result as normal/abnormal . GRAN MAT (NEUT) % 68.9 % (test code = 770-8) IMM GRAN % (test code 0.10 % = 7784371032) LYMPH % (test code = 19.7 % 736-9) MONO % (test code = 8.6 % 5905-5) EOS % (test code = 1.8 % 713-8) BASO % (test code = 0.9 % 706-2) GRAN MAT x10^3(ANC) 4.62 10*3/uL 1.88-7.09 (test code = 7398430198) IMM GRAN x10^3 (test <0.03 0-0.06 code = 8055560442) LYMPH x10^3 (test code 1.32 10*3/uL 1.32-3.29 = 731-0) MONO x10^3 (test code 0.58 10*3/uL 0.33-0.92 = 742-7) EOS x10^3 (test code = 0.12 10*3/uL 0.03-0.39 711-2) BASO x10^3 (test code 0.06 10*3/uL 0.01-0.07 = 704-7) Lab Interpretation Abnormal (test code = 85085-8) [facility] URINALYSIS W SPECIFIC [id number] 15:34:00 Test Item Value Reference Range Interpretation [...] POCT U APPEAR (test code = 3267) [facility] [id number] 15:34:00 Test Item Value Reference Range Interpretation Comments POCT PREG (test code = 1605) Positive On board controls acceptable with C Yes Line (test code = 3574) POCT PREG LOT # (test code = 3575) POCT PREG TEST DATE (test code = 357) [facility] URINALYSIS W SPECIFIC [id number] 15:34:00 Test Item Value Reference Range Interpretation [...] POCT U APPEAR (test code = 3267) [facility] [id number] 15:34:00 Test Item Value Reference Range Interpretation Comments POCT PREG (test code = 1605) Positive On board controls acceptable with C Yes Line (test code = 3574) POCT PREG LOT # (test code = 3575) POCT PREG TEST DATE (test code = 357) [facility] URINALYSIS W SPECIFIC [id number] 15:34:00 Test Item Value Reference Range Interpretation [...] POCT U APPEAR (test code = 3267) [facility]PO[facility] [id number] 15:34:00 Test Item Value Reference Range Interpretation Comments POCT PREG (test code = 1605) Positive On board controls acceptable with C Yes Line (test code = 3574) POCT PREG LOT # (test code = 3575) POCT PREG TEST DATE (test code = 3576) [facility]
[2023-02-25] MEDS ORDERED: ONDANSETRON 4 MG/2 ML VIAL ONE (11:06)
[2023-02-25] MEDS ORDERED: MORPHINE 4 MG/ML SYR ONE (11:06)
[2023-02-25] MEDS ORDERED: NA CHLORIDE 0.9% 1,000 ML ONE (11:06)
[2023-02-25 11:20] LABS: Absolute Lymphocytes (CBC) 2.3 K/uL (0.7-4.9); Hematocrit 39.3 % (36.0-45.0); Lymphocytes % 29.6 % (15.3-44.8); MCV 92.3 fL (80-100); MPV 7.9 fL (7.6-11.3); RBC Red Blood Cell Count 4.26 M/uL (3.86-4.86)
[2023-02-25 11:33] LABS: Specific Gravity 1.025 (1.005-1.030)
[2023-02-25 11:35] LABS: Albumin 3.9 g/dL (3.4-5.0); Bilirubin Total 0.5 mg/dL (0.2-1.0); Potassium 3.5 mEq/L (3.5-5.1); Protein, Total 7.8 g/dL (6.4-8.2)
[2023-02-25 11:37] LABS: Specific Gravity 1.025 (1.005-1.030); Urine Bacteria 20-50 /HPF (<20); Urine Bilirubin NEGATIVE (Negative); Urine Blood 3+ (Negative); Urine Clarity Clear (Clear); Urine Color Yellow (Yellow); Urine Glucose NEGATIVE (Negative); Urine Mucus 2+ /HPF (None Seen); Urine Protein TRACE (Negative); Urine RBC >50 /HPF (None Seen); Urine Urobilinogen Normal (Normal)
--- NOTE | 2023-02-25 12:11 | RAD REPORT ---
EXAM DESCRIPTION: CT - Stone Protocol - 02/25/2023 11:45 am CLINICAL HISTORY: FLANK PAIN COMPARISON: Abdomen Pelvis W Contrast dated 02/17/2022 TECHNIQUE: Thin cut axial CT imaging of the abdomen and pelvis was performed without IV contrast. Mu ltiplanar reformats were generated and reviewed. All CT scans are performed using dose optimization technique as appropriate and may include automated exposure control or mA/KV adjustment according to patient size. FINDINGS: No suspicious findings in the lung bases. The liver, spleen, and pancreas show no suspicious findings. Gallbladder and biliary tree are also wi thout suspicious finding. Symmetric renal contour, without suspicious parenchymal findings within limits of noncontrast techniq ue. Mild prominence of the right renal collecting system, stable. 2 millimeter right lower pole calcu gabriel. 3 millimeter focus of calcification approximating the course of the right ureter, axial image 14 1, could represent a calculus versus pelvic phleboliths. Tiny calculi in the left lower renal pole, 2 -3 millimeter in size. No dilated bowel loops or bowel wall thickening. The appendix is normal in appearance. Sequelae of ga stric bypass. No free air, free fluid or inflammatory stranding. No hernia, mass or bulky lymphadenop athy. The urinary bladder is decompressed, without significant finding. IUD in place. No suspicious bony findings. IMPRESSION: Stable mild prominence of the right renal collecting system. A 3 millimeter focus of michael cific along the course of the distal right ureter is noted, may represent a small calculus versus pel juana phleboliths. Nondistended urinary bladder which limits evaluation. Bilateral tiny nonobstructing renal calculi as above.
--- NOTE | 2023-02-25 12:40 | ER ---
Nurse's Notes [facility] Name: Ksaey Levy Age: 27 yrs Sex: Female : 1995 Arrival Date: 02/25/2023 Time: 10:46 Bed 8 Private MD: Diagnosis: UTI/ Urinary tract infection, site not specified;Calculus of ureter Presentation: 02/25 10:51 Chief complaint: Patient states: R flank pain 08/09 that started today, also reports ph nausea, dizziness, and chills, hx of kidney stones. Coronavirus screen: Vaccine status: Patient reports receiving the 2nd dose of the covid vaccine. Ebola Screen: No symptoms or risks identified at this time. Initial Sepsis Screen: Does the patient meet any 2 criteria? No. Patient's initial sepsis screen is negative. Does the patient have a suspected source of infection? No. Patient's initial sepsis screen is negative. Risk Assessment: Do you want to hurt yourself or someone else? Patient reports no desire to harm self or others. Onset of symptoms was February 25, 2023. Care prior to arrival: Medication(s) given: zofran 4 mg, toradol 15 mg IV initiated. 20 GA, in the right antecubital area. 10:51 Method Of Arrival: EMS: [facility] ph 10:51 Acuity: MICHELLE 3 ph Triage Assessment: 10:53 General: Appears in no apparent distress. uncomfortable, Behavior is cooperative, ph appropriate for age. Pain: Complains of pain in posterior aspect of right lateral abdomen and anterior aspect of right lateral abdomen Pain radiates to suprapubic area and right lower quadrant. Neuro: [place] Agitation-Sedation Scale (RASS): +1 Restless Level of Consciousness is awake, alert, obeys commands, Oriented to person, place, time, situation. Cardiovascular: Capillary refill < 3 seconds in bilateral fingers Patient's skin is warm and dry. Respiratory: Airway is patent Respiratory effort is even, unlabored. GI: Abdomen is non-distended. : Reports pain in right flank(s). Derm: Skin is pink, warm \T\ dry. Musculoskeletal: Circulation, motion, and sensation intact. Range of motion: intact in all extremities. Historical: - Allergies: 10:53 No Known Drug Allergies; ph - PSHx: 10:53 section; gastric sleeve; ph - Immunization history:: Adult Immunizations unknown. - Social history:: Smoking status: Patient denies any tobacco usage or history of. Screenin:55 [facility] ED Fall Risk Assessment (Adult) History of falling in the last 3 months, ph including since admission No falls in past 3 months (0 pts) Confusion or Disorientation No (0 pts) Intoxicated or Sedated No (0 pts) Impaired Gait No (0 pts) Mobility Assist Device Used No (0 pt) Altered Elimination No (0 pt) Score/Fall Risk Level 0 - 2 = Low Risk Oriented to surroundings, Maintained a safe environment, Hourly rounding (assess needs \T\ fall precautionary measures) done. Abuse screen: Denies threats or abuse. Denies injuries from another. Nutritional screening: No deficits noted. Tuberculosis screening: No symptoms or risk factors identified. Assessment: 11:00 General: SEE TRIAGE NOTE. bp 12:59 Reassessment: PT DC HOME AMBULATORY WITH FAMILY. bp Vital Signs: 10:51 BP 132 / 68; Pulse 84; Resp 18; Temp 97.9; Pulse Ox 100% on R/A; Weight 112.49 kg; ph 13:03 BP 105 / 65; Pulse 84; Resp 16; Pulse Ox 99% ; bp ED Course: 10:51 Patient arrived in ED. ph 10:52 Yasmin Garcia FNP-C is PHCP. kb 10:52 Didier Thomas DO is Attending Physician. kb 10:53 Triage completed. ph 10:53 Arm band placed on Patient placed in an exam room. ph 10:55 Patient has correct armband on for positive identification. Bed in low position. Call ph light in reach. Side rails up X 1. Pulse ox on. NIBP on. Door closed. Noise minimized. Warm blanket given. 10:56 Yasmin Garcia FNP-C is PHCP. kb 11:16 Brittanie Mckeon RN is Primary Nurse. ph 11:23 Test, Urine Sent. ph 11:23 Urinalysis w/ reflexes Sent. ph 11:47 CT Stone Protocol In Process Unspecified. EDMS 12:59 No provider procedures requiring assistance completed. IV discontinued, intact, bp bleeding controlled, No redness/swelling at site. Pressure dressing applied. Administered Medications: 11:05 Drug: NS 0.9% IV 1000 ml Route: IV; Rate: 1 bolus; Site: right antecubital; ph 12:59 Follow up: IV Status: Completed infusion bp 11:05 Drug: Ondansetron IVP 4 mg Route: IVP; Site: right antecubital; ph 12:59 Follow up: Response: No adverse reaction bp 11:07 Drug: morphine IVP or IV 4 mg Route: IVP; Infused Over: 4 mins; Site: right antecubital;ph 12:59 Follow up: Response: No adverse reaction bp 12:59 Drug: morphine IVP or IV 2 mg Route: IVP; Infused Over: 4 mins; Site: right antecubital;bp 12:59 Follow up: Response: No adverse reaction bp Medication: 10:55 VIS not applicable for this client. ph Outcome: 12:39 Discharge ordered by MD. kb 13:04 Discharged to home ambulatory. bp 13:04 Condition: stable 13:04 Discharge instructions given to patient, Instructed on discharge instructions, follow up and referral plans. medication usage, Demonstrated understanding of instructions, follow-up care, medications, Prescriptions given X 3. 13:04 Patient left the ED. bp Signatures: Dispatcher [employer] EDMS Yasmin Garcia, RAILWAY TRACK WORKER-C LAURA-Brittanie Gastelum RN RN ph Schuyler Bautista, AJAY RN bp Didier Thomas DO DO ms3
--- NOTE | 2023-02-25 12:40 | EDPHYS ---
Physician Documentation [facility] Name: Kasey Levy Age: 27 yrs Sex: Female : 1995 Arrival Date: 02/25/2023 Time: 10:46 Bed 8 Private MD: ED Physician Didier Thomas HPI: 02/25 10:56 This 27 yrs old Female presents to ER via EMS with complaints of Possible Kidney Stone. ms3 10:56 27-year-old female with past medical history of kidney stones presents for right flank ms3 pain that began 30 minutes prior to arrival. EMS administered 15 mg Toradol and 4 mg Zofran prior to arrival. Patient states Toradol slightly relieved her pain. Patient states her pain is currently a 8/10 and sharp/stabbing. Patient endorses nausea and chills. Patient denies fevers or vomiting. Historical: - Allergies: 10:53 No Known Drug Allergies; ph - PSHx: 10:53 section; gastric sleeve; ph - Immunization history:: Adult Immunizations unknown. - Social history:: Smoking status: Patient denies any tobacco usage or history of. ROS: 10:56 Constitutional: Negative for fever, and chills. Neck: Negative for injury, pain, and ms3 swelling, Cardiovascular: Negative for chest pain, and palpitations. Respiratory: Negative for shortness of breath, cough, wheezing, and pleuritic chest pain, Abdomen/GI: Negative for abdominal pain, nausea, vomiting, diarrhea, and constipation. 10:56 Skin: Negative for injury, rash, and discoloration. 10:56 Back: Positive for flank pain, on the right. 10:56 All other systems are negative. Exam: 10:56 Constitutional: This is a well developed, well nourished patient who is awake, alert, ms3 and in no acute distress. Head/Face: Normocephalic, atraumatic. Chest/axilla: Normal chest wall appearance and motion. Nontender with no deformity. Cardiovascular: Regular rate and rhythm with a normal S1 and S2. No gallops, murmurs, or rubs. Normal PMI, no JVD. No pulse deficits. Respiratory: Lungs have equal breath sounds bilaterally, clear to auscultation and percussion. No rales, rhonchi or wheezes noted. No increased work of breathing, no retractions or nasal flaring. 10:56 Back: No spinal tenderness. No costovertebral tenderness. Full range of motion. MS/ Extremity: Pulses equal, no cyanosis. Neurovascular intact. Full, normal range of motion. 10:56 Abdomen/GI: Inspection: Well-healing incisions with adhesive overlying them, Bowel sounds: normal, Palpation: moderate abdominal tenderness, in all quadrants. Vital Signs: 10:51 BP 132 / 68; Pulse 84; Resp 18; Temp 97.9; Pulse Ox 100% on R/A; Weight 112.49 kg; ph 13:03 BP 105 / 65; Pulse 84; Resp 16; Pulse Ox 99% ; bp MDM: 10:52 Patient medically screened. kb 10:56 Differential diagnosis: nephrolithiasis, pyelonephritis, UTI. ms3 11:00 Differential diagnosis: UTI, pyelonephritis, kidney stone, postop infection. Data kb reviewed: vital signs, nurses notes. Historians other than the Patient: EMS: [facility]. ED course: Patient is a 27-year-old female with a history of kidney stones and recent gastric sleeve on 02/15. Presents today for right flank pain that started 30 minutes prior to arrival. Reports she has had decreased urination and small amounts. Denies dysuria, hematuria. States she has been on a liquid diet since gastric sleeve so is concerned about dehydration. On exam patient has moderate upper abdominal tenderness and mild right CVA tenderness.. 12:38 Counseling: I had a detailed discussion with the patient and/or guardian regarding: the kb historical points, exam findings, and any diagnostic results supporting the discharge/admit diagnosis, lab results, radiology results, the need for outpatient follow up, a family practitioner, a urologist, to return to the emergency department if symptoms worsen or persist or if there are any questions or concerns that arise at home. ED course: Pt educated on diagnostic results and need for follow up. Verbal understanding received. Pain resolved at this time. Pt has tylenol with codeine at home for recent surgery. 02/25 10:54 Order name: CBC with Diff; Complete Time: 11:28 kb 02/25 10:54 Order name: CMP; Complete Time: 11:43 kb 02/25 10:54 Order name: Lipase; Complete Time: 11:43 kb 02/25 10:54 Order name: Test, Urine; Complete Time: 11:43 kb 02/25 10:54 Order name: Urinalysis w/ reflexes; Complete Time: 11:43 kb 02/25 10:54 Order name: CT Stone Protocol; Complete Time: 12:18 kb 02/25 10:54 Order name: IV Saline Lock; Complete Time: 11:16 kb 02/25 10:54 Order name: Labs collected and sent; Complete Time: 11:16 kb Administered Medications: 11:05 Drug: NS 0.9% IV 1000 ml Route: IV; Rate: 1 bolus; Site: right antecubital; ph 12:59 Follow up: IV Status: Completed infusion bp 11:05 Drug: Ondansetron IVP 4 mg Route: IVP; Site: right antecubital; ph 12:59 Follow up: Response: No adverse reaction bp 11:07 Drug: morphine IVP or IV 4 mg Route: IVP; Infused Over: 4 mins; Site: right antecubital;ph 12:59 Follow up: Response: No adverse reaction bp 12:59 Drug: morphine IVP or IV 2 mg Route: IVP; Infused Over: 4 mins; Site: right antecubital;bp 12:59 Follow up: Response: No adverse reaction bp Disposition: 10:58 I reviewed the patient's care provided by Advanced Practice Provider \T\ agree w/ the ms3 diagnosis \T\ care plan. I personally saw the pt \T\ performed a substantive portion of the visit, incldng all aspects of the (History/Exam/Medical Decision Making). 11:20 Co-signature as Attending Physician, Didier Thomas DO. ms3 Disposition Summary: 02/25/23 12:39 Discharge Ordered Location: Home kb Condition: Stable kb Diagnosis - UTI/ Urinary tract infection, site not specified kb - Calculus of ureter kb Followup: kb - With: Emergency Department - When: As needed - Reason: Worsening of condition Followup: kb - With: Private Physician - When: 2 - 3 days - Reason: Recheck today's complaints, Continuance of care, Re-evaluation by your physician Discharge Instructions: - Discharge Summary Sheet kb - Kidney Stones, [id number] kb - Urinary Tract Infection, Adult, [id number] kb - Dietary Guidelines to Help Prevent Kidney Stones kb Forms: - Medication Reconciliation Form kb - Thank You Letter kb - Antibiotic Education kb - Prescription Opioid Use kb - Work release form eb - Family Work Release eb Prescriptions: - ondansetron 4 mg Oral Tablet,disintegrating - take 1 tablet by ORAL route every 6 hours As needed as needed for nausea and kb vomiting; 10 tablet; Refills: 0, Product Selection Permitted - Flomax 0.4 mg Oral capsule - take 1 capsule by ORAL route daily; 10 capsule; Refills: 0, Product Selection kb Permitted - Augmentin ES-600 600-42.9 mg/5 mL Oral Suspension for Reconstitution - take 7 milliliter by ORAL route every 12 hours for 10 days Max = 875mg/dose; kb 150 milliliter; Refills: 0, Product Selection Permitted Signatures: Dispatcher [employer] EDYasmin Henley, BRAND EXECUTIVE-C LAURA-Brittanie Gastelum RN RN Schuyler Abarca, AJAY RN Didier Mcdonald, DO ms3
[2023-02-25] MEDS ORDERED: MORPHINE 2 MG/ML SYR ONE (12:57)
[2023-02-25 13:09] VITALS: TEMP 97.9
[2023-02-25 13:10] VITALS: BP 105/65; O2SAT 99
== END 2023-02-25 13:04 | disposition home or self-care (01) ==
LOC: ER 10:46
DX: N39.0 Urinary tract infection, site not specified (principal); N20.1 Calculus of ureter; Z87.442 Personal history of urinary calculi
CPT/HCPCS: 85025; 81001; 36415; 81025; 83690; 80053; 76377; 74176; J2270; J2405; J7030; 96361; 96374; 96375; 99284

== ENCOUNTER 2023-03-21 00:24 | Emergency (ER) | payer OTHER ==
--- OUTSIDE RECORDS SUMMARY | 2023-03-21 00:34 | XMS REPORT | Continuity of Care Document ---
:1995 Author Organization [facility] t Address [address] [place] [address] [place] [id number] Care Team Providers Name Role Phone Deb Rider Primary Care Physician LOY NIELSON Attending Clinician Unavailable Jeremiah Fenton Attending Clinician Unavailable Gidvani_B Attending Clinician Unavailable EKABE OBONORUMA IMARIA Attending Clinician Unavailable Ekabe Obonomarikaa Adeolaariabe Attending Clinician DILEEP SAUNDERS Attending Clinician Unavailable Dileep Saunders PA-C Attending Clinician 2, [facility] Attending Clinician Unavailable Doctor Unassigned, [place] Attending Clinician Unavailable Ebony Chan Attending Clinician Unavailable JOSE WATT Attending Clinician Unavailable ANNIE ELLIOTT Attending Clinician Unavailable Visit, Analilia Nurse Attending Clinician Unavailable Annie Giraldo Attending Clinician Lab, Analilia Attending Clinician Unavailable Ultrasound, OrinMftank Attending Clinician Unavailable Kraig Kan MD Attending Clinician FELICITAS VUONG Attending Clinician Unavailable Risk, Iut-Eshkd-Gk/High Attending Clinician Unavailable Felicitas Rausch Attending Clinician Ghulam Fentonory Pamela Admitting Clinician Unavailable Gidvani_B Admitting Clinician Unavailable EKHAESE, OBONORUMA IMARIA Admitting Clinician Unavailable Ekhaese, Obonoruma Imariabe Admitting Clinician [phone] KNOW, DOES_NOT Admitting Clinician Unavailable Payers Payer Name Policy Type Policy Number Effective Date Expiration Date S pooja [facility] MEDICAID STAR [id number] 2020 00:00:00 [facility] [id number] 2020 CHOICE (MEDICAID 00:00:00 [facility] [id number] 2020 CHOICE [place] STAR 00:00:00 MED[place] [id number] 2020 00:00:00 Problems Condition Condition Condition Status Onset Resolution Last Treating Co mments Source Name Details Category Date Date Treatment Clinician Date E603.31 E66.01 Diagnosis Active 2023-02-16 Me moria Active 01-31 15:53:00 l 01/31/2023 00:00: Christian anderson [address] LAP LAP Diagnosis Active 2023-02-18 Mem oria GASTRIC GASTRIC 01-31 12:11:00 l SLEEVE, SLEEVE, 00:00: [place] E66.01 E66.01 00 Active 01/31/2023 [facility] EGD EGD Diagnosis Active 2022-11-17 Mem oria Active 11-05 06:10:00 l 11/05/2022 00:00: Christian anderson [facility] 00 [place] K21.9 K21.9 Diagnosis Active 2022-11-16 Mem oria Active 11-05 14:46:00 l 11/05/2022 00:00: Christian anderson [facility] 00 [place] Adult ADHD Adult ADHD Disease Active 2019- U nivers 5-28 ity of 00:00: [place] [address] [facility] Branch Congestion Congestion Disease Active 2020- U nivers of nasal of nasal 5-12 ity of sinus sinus 00:00: [place] [address] Medical Branch Maternal Maternal Disease Active 2020-0 Overview: Un sky varicella, varicella, 4-16 Formattin ity of non-immune non-immune 00:00: g of this [place] 00 note Medical might be Branch different [...] nivers y y 4-15 ity of 00:00: [place] 00 Medical Branch Ear pain, Ear pain, Disease Active 2020-0 Uni vers bilateral bilateral 4-15 ity of 00:00: 00 Medical Branch Obesity in Obesity in Disease Active 2020-0 U nivers 4-15 ity of 00:00: [place] 00 Medical Branch Disease Disease Problem Resolve 2023-02-14 M emoria caused by caused by d 13:17:38 l 2018-nCoV nCoV Herm jing Resolved Problem 02/14/2023 [facility] Gestationa Gestation Problem Resolve 2023-02-14 Memoria l diabetes al d 13:17:38 l mellitus diabetes Christian n (disorder) mellitus (disorder) Resolved Problem 02/14/2023 [facility] Heartburn Heartburn Problem Resolve 2023-02-14 Memoria (finding) (finding) d 13:17:38 l Resolved [place]o Problem 02/14/2023 [facility] Tachycardi Problem Resolve 2023-02-14 Memoria a Tachycardi d 13:17:38 l (finding) a Haroldo (finding) Resolved Problem 02/14/2023 [facility] Anxiety Anxiety Problem Active 2023-02-19 Me moria (finding) (finding) 23:37:27 l Active [place] Problem 02/19/2023 [facility] Attention Attention Problem Active 2023-02-19 Memoria deficit deficit 23:37:27 l hyperactiv hyperactiv He rmann ity ity disorder disorder (disorder) (disorder) Active Problem 02/19/2023 [facility] Body mass Body mass Problem Active 2023-02-19 Memoria index 30+ index 30+ 23:37:27 l - obesity - obesity Herm jing (finding) (finding) Active Problem 02/19/2023 BMI=39 [facility] Does use Does use Problem Active 2023-02-19 Memoria contact contact 23:37:27 l lenses lenses Haroldo (finding) (finding) Active Problem 02/19/2023 [facility] Lalito Lalito Problem Active 2023-02-19 Memoria thyroiditi thyroiditi 23:37:27 l s s [place] (disorder) (disorder) Active Problem 02/19/2023 [facility] Sleep Sleep Problem Active 2023-02-19 Memor ia apnea apnea 23:37:27 l (finding) (finding) Herm jing Active Problem 02/19/2023 [facility] History of History Problem Active 2023-02-19 Memoria bariatric of 23:37:27 l surgical bariatric [place] nn procedure surgical (situation procedure ) (situation ) Active Problem 02/19/2023 [facility] MORBID MORBID Diagnosis Active 2023-02-18 Me moria (SEVERE) (SEVERE) 12:11:00 l OBESITY OBESITY [place] DUE TO DUE TO EXCESS CA EXCESS CA Active [facility] Allergies, Adverse Reactions, Alerts Allergy Allergy Status Severity Reaction(s) Onset Inactive Treating Comm ents Source Name Type Date Date Clinician No Known DA Active U [facility] [place] No Known DA Active U 2019-10 [facility] Allergie 1-30 [facility] [place] No Known DA Active U 2019-10 [facility] Allergie 1-30 [facility] [place] No Known DA Active U 2019-10 [facility] Allergie 1-24 [facility] [place] No Known DA Active U 2019-10 [facility] Allergie 1-24 [facility] [place] NO KNOWN Drug Active Univers ALLERGIE Class [facility]y [facility] [place] [facility] Social History Social Habit Start Date Stop Date Quantity Comments Source ASSERTION 2020-01-08 University of 00:00:00 [facility] History SDOH [facility] Alcohol Frequency History SDOH [facility] Alcohol Std Drinks History [facility] Alcohol Binge History of Passive smoker University of tobacco use [facility] Exposure to 2022-10-30 2022-11-09 Not sure University SARS-CoV-2 00:00:00 09:41:00 [facility] [place] Tobacco use and 2022-11-09 2022-11-09 Smokeless tobacco Un iversity of exposure 00:00:00 00:00:00 non-user [facility] Alcohol Comment 2022-11-09 2022-11-09 ocassional Universit y of 00:00:00 00:00:00 [facility] Alcohol intake 2022-06-29 2022-06-29 .14 /d [facility] 00:00:00 00:00:00 Sex [birth year] At [birth year] [facility] 00:00:00 00:00:00 Smoking Status Start Date Stop Date Source Unknown if ever smoked [facility] Tobacco smoking status [facility] [place] [facility] Medications Ordered Filled Start Stop Current Ordering Indication Dosage Frequency Signature Comments Components Source Medication Medication Date Date Medication? Clinician (SIG) Name Name Tylenol Yes 10 ml, PO, Sandoval jocelin with 4-20 Q6H, PRN l Codeine 120 15:54: Pain, X 7 H ermann mg-12 mg/5 day, # 120 mL oral mL, 0 liquid Refill(s) Tylenol Yes 10 ml, PO, [place] jocelin with 4-20 Q6H, PRN l Codeine 120 15:54: Pain, X 7 H ermann mg-12 mg/5 day, # 120 mL oral mL, 0 liquid Refill(s) Zofran 4 mg Yes 4 mg = 1 Me moria oral tablet 4-20 tab, PO, l 15:53: Q6H, PRN [place] 00 Nausea/Vom iting, X 5 day, # 20 tab, 0 Refill(s), Pharmacy: [facility] [id number], 170.18, cm, 02/09/23 9:39:00 CDT, Height, 117.136, kg, 02/09/23 9:39:00 CDT, Weight Zofran 4 mg Yes 4 mg = 1 Me moria oral tablet 4-20 tab, PO, l 15:53: Q6H, PRN [place] 00 Nausea/Vom iting, X 5 day, # 20 tab, 0 Refill(s), Pharmacy: [facility] [id number], 170.18, cm, 02/09/23 9:39:00 CDT, Height, 117.136, kg, 02/09/23 9:39:00 CDT, Weight heparin 3-0 Yes 5,000 Memoria 5000 4-13 unit, l units/mL 14:00: Route: [place] injectable 00 SUB-Q, solution Drug form: INJ, Q12H, Dosing Weight 117.273, kg, Start date: 02/10/23 9:00:00 CDT, Duration: 30 day, Stop date: 03/11/23 21:00:00 CDT heparin 3-0 Yes 5,000 Memoria 5000 4-13 unit, l units/mL 14:00: Route: [place] injectable 00 SUB-Q, solution Drug form: INJ, Q12H, Dosing Weight 117.273, kg, Start date: 02/10/23 9:00:00 CDT, Duration: 30 day, Stop date: 03/11/23 21:00:00 CDT ceFAZolin 2023-0 Yes 3 gm, Memoria 4-13 Route: l 11:00: IVP, [place] 00 ONCALL, Dosing Weight 117.273, kg, (for patients < 100 kg), Start date: 02/10/23 6:00:00 CDT, Duration: 1 doses or times, ABX Indication : Surgical Prophylaxi s scopolamine 3-0 Yes 1 patch, Me moria 1 mg/72 hr 4-13 Route: l transdermal 11:00: TOP, Drug H ermann film, 00 Form: extended ERFILM, release Dosing Weight 117.273, kg, PRE OP, Start date: 02/10/23 6:00:00 CDT, Duration: 30 day, Stop date: 03/12/23 5:59:00 CDT ceFAZolin 2023-0 Yes 3 gm, Memoria 4-13 Route: l 11:00: IVP, [place] 00 ONCALL, Dosing Weight 117.273, kg, (for patients < 100 kg), Start date: 02/10/23 6:00:00 CDT, Duration: 1 doses or times, ABX Indication : Surgical Prophylaxi s scopolamine Yes 1 patch, Me moria 1 mg/72 hr 4-13 Route: l transdermal 11:00: TOP, Drug H ermann film, 00 Form: extended ERFILM, release Dosing Weight 117.273, kg, PRE OP, Start date: 02/10/23 6:00:00 CDT, Duration: 30 day, Stop date: 03/12/23 5:59:00 CDT multivitami 2022-0 Yes Daily, 0 Me moria n 4-12 Refill(s) l 14:24: [place] 00 Vitamin B12 0 Yes 0 Memori a 4-12 Refill(s) l 14:24: [place] multivitami 2022-0 Yes Daily, 0 Me moria n 4-12 Refill(s) l 14:24: [place] 00 Vitamin B12 2022-0 Yes 0 Memori a 4-12 Refill(s) l 14:24: Tums 0 Yes 500 mg, Memoria 1-11 CHEW, PRN, l 17:52: 0 [place] 00 Refill(s) Tums 0 Yes 500 mg, Memoria 1-11 CHEW, PRN, l 17:52: 0 [place] 00 Refill(s) Singulair 0 Yes 10 mg = 1 Mem oria 10 mg oral 1-11 tab, PO, l tablet 17:51: QAM, 0 Refill(s) Vitamin D3 0 Yes 1,250 Memori a 50,000 intl 1-11 microgram l units oral 17:51: = 1 cap, Her weinstein capsule 00 PO, qWeek Tylenol 0 Yes 500 mg, Memoria 1-11 PO, PRN, 0 l 17:51: Refill(s) Singulair 0 Yes 10 mg = 1 Mem oria 10 mg oral 1-11 tab, PO, l tablet 17:51: QAM, 0 [place] 00 Refill(s) Vitamin D3 0 Yes 1,250 Memori a 50,000 intl 1-11 microgram l units oral 17:51: = 1 cap, Her weinstein capsule 00 PO, qWeek Tylenol Yes 500 mg, Memoria 1-11 PO, PRN, 0 l 17:51: Refill(s) [place] 00 Adderall 20 0 Yes 20 mg = 1 M emoria mg oral -11 tab, PO, l tablet 17:50: TID, 0 [place] 00 Refill(s) Adderall 20 0 Yes 20 mg = 1 M emoria mg oral -11 tab, PO, l tablet 17:50: TID, 0 [place] 00 Refill(s) dextroamphe Yes Take by Uni vers tamine/amph 1-10 mouth. ity of etamine 09:59: [place] (ADDERALL 24 Medical ORAL) Branch ergocalcife Yes Take by Uni vers rol, 1-10 mouth. ity of vitamin D2, 09:59: [place] (VITAMIN D 24 Medical ORAL) Branch montelukast Yes Take by Uni vers sodium 1-10 mouth. ity of (SINGULAIR 09:59: [place] ORAL) 24 Medical Branch dextroamphe Yes Take by Uni vers tamine/amph 1-10 mouth. ity of etamine 09:59: [place] (ADDERALL 24 Medical ORAL) Branch ergocalcife Yes Take by Uni vers rol, 1-10 mouth. ity of vitamin D2, 09:59: [place] (VITAMIN D 24 Medical ORAL) Branch montelukast Yes Take by Uni vers sodium 1-10 mouth. ity of (SINGULAIR 09:59: [place] ORAL) 24 Medical Branch dextroamphe Yes Take by Uni vers tamine/amph 1-10 mouth. ity of etamine 09:59: [place] (ADDERALL 24 Medical ORAL) Branch ergocalcife Yes Take by Uni vers rol, 1-10 mouth. ity of vitamin D2, 09:59: [place] (VITAMIN D 24 Medical ORAL) Branch montelukast Yes Take by Uni vers sodium 1-10 mouth. ity of (SINGULAIR 09:59: [place] ORAL) 24 Medical Branch dextroamphe 0 Yes Take by Uni vers tamine/amph 1-10 mouth. ity of etamine 09:59: [place] (ADDERALL 24 Medical ORAL) Branch ergocalcife Yes Take by Uni vers rol, 1-10 mouth. ity of vitamin D2, 09:59: [place] (VITAMIN D 24 Medical ORAL) Branch montelukast Yes Take by Uni vers sodium 1-10 mouth. ity of (SINGULAIR 09:59: [place] ORAL) 24 Medical Branch amphetamine Yes [facility] -dextroamph 8 [facility] etamine 00:00: (Adderall) 00 30 MG tablet propranolol Yes [place] (Inderal) 7 [facility] 10 MG 00:00: tablet 00 Blood-Gluco 0 Yes [id number] Use as Univers se Meter 8-24 directed ity of (FREESTYLE 00:00: [place] LITE METER) 00 Medical Kit Branch blood sugar 2019-0 Yes [id number] Use as Univers diagnostic 8-24 directed ity o f (FREESTYLE 00:00: [place] LITE 00 Medical STRIPS) Branch strip lancets 17 2019-0 Yes [id number] Use as U nivers gauge Misc 8-24 directed ity o f 00:00: [place] 00 Medical Branch Blood-Gluco 2020-0 Yes [id number] Use as Univers se Meter 8-24 directed ity of (FREESTYLE 00:00: [place] LITE METER) 00 Medical Kit Branch blood sugar 2019-0 Yes [id number] Use as Univers diagnostic 8-24 directed ity o f (FREESTYLE 00:00: [place] LITE 00 Medical STRIPS) Branch strip lancets 17 2019-0 Yes [id number] Use as U nivers gauge Misc 8-24 directed ity o f 00:00: [place] 00 Medical Branch Blood-Gluco 2020-0 Yes [id number] Use as Univers se Meter 8-24 directed ity of (FREESTYLE 00:00: [place] LITE METER) 00 Medical Kit Branch blood sugar 2020-0 Yes [id number] Use as Univers diagnostic 8-24 directed ity o f (FREESTYLE 00:00: [place] LITE 00 Medical STRIPS) Branch strip lancets 17 2020-0 Yes [id number] Use as U nivers gauge Misc 8-24 directed ity o f 00:00: [place] 00 Medical Branch Blood-Gluco 2020-0 Yes [id number] Use as Univers se Meter 8-24 directed ity of (FREESTYLE 00:00: [place] LITE METER) 00 Medical Kit Branch blood sugar 2020-0 Yes [id number] Use as Univers diagnostic 8-24 directed ity o f (FREESTYLE 00:00: [place] LITE 00 Medical STRIPS) Branch strip lancets 17 2020-0 Yes [id number] Use as U nivers gauge Misc 8-24 directed ity o f 00:00: [place] 00 Medical Branch Blood-Gluco 2020-0 Yes [id number] Use as Univers se Meter 8-24 directed ity of (FREESTYLE 00:00: [place] LITE METER) 00 Medical Kit Branch blood sugar 2020-0 Yes [id number] Use as Univers diagnostic 8-24 directed ity o f (FREESTYLE 00:00: [place] LITE 00 Medical STRIPS) Branch strip lancets 17 2020-0 Yes [id number] Use as U nivers gauge Misc 8-24 directed ity o f 00:00: [place] 00 Medical Branch Blood-Gluco 2020-0 Yes [id number] Use as Univers se Meter 8-24 directed ity of (FREESTYLE 00:00: [place] LITE METER) 00 Medical Kit Branch blood sugar 2020-0 Yes [id number] Use as Univers diagnostic 8-24 directed ity o f (FREESTYLE 00:00: [place] LITE 00 Medical STRIPS) Branch strip lancets 17 2020-0 Yes [id number] Use as U nivers gauge Misc 8-24 directed ity o f 00:00: [place] 00 Medical Branch Blood-Gluco 2020-0 Yes [id number] Use as Univers se Meter 8-24 directed ity of (FREESTYLE 00:00: [place] LITE METER) 00 Medical Kit Branch blood sugar 2020-0 Yes [id number] Use as Univers diagnostic 8-24 directed ity o f (FREESTYLE 00:00: [place] LITE 00 Medical STRIPS) Branch strip lancets 17 2020-0 Yes [id number] Use as U nivers gauge Misc 8-24 directed ity o f 00:00: [place] 00 Medical Branch Blood-Gluco 2020-0 Yes [id number] Use as Univers se Meter 8-24 directed ity of (FREESTYLE 00:00: [place] LITE METER) 00 Medical Kit Branch blood sugar 2020-0 Yes [id number] Use as Univers diagnostic 8-24 directed ity o f (FREESTYLE 00:00: [place] LITE 00 Medical STRIPS) Branch strip lancets 17 2019-0 Yes [id number] Use as U nivers gauge Misc 8-24 directed ity o f 00:00: [place] 00 Medical Branch Blood-Gluco 2019-0 Yes [id number] Use as Univers se Meter 8-24 directed ity of (FREESTYLE 00:00: [place] LITE METER) 00 Medical Kit Branch blood sugar 2020-0 Yes [id number] Use as Univers diagnostic 8-24 directed ity o f (FREESTYLE 00:00: [place] LITE 00 Medical STRIPS) Branch strip lancets 17 2019-0 Yes [id number] Use as U nivers gauge Misc 8-24 directed ity o f 00:00: [place] 00 Medical Branch colistin-ne 2019-0 Yes [id number] 1[drp] Place 1 Univers omycin-hc-t 4-15 Drop in ity o f [place] 00:00: both ears Dave as (CORTISPORI 00 4 (four) Medi michael N-TC) times Branch 3.3-3-10-0. daily. 5 mg/mL otic drops 2020-0 Yes [id number] 1{packe Take 1 Univers vit 4-15 t} Packet by ity of 33-iron-fol 00:00: mouth [place] ic-dha 00 daily. Medical (SELECT-OB Branch + DHA) 29 mg iron-1 mg -250 mg combo pack colistin-ne 2020-0 Yes [id number] 1[drp] Place 1 Univers omycin-hc-t 4-15 Drop in ity o f [place] 00:00: both ears Dave as (CORTISPORI 00 4 (four) Medi michael N-TC) times Branch 3.3-3-10-0. daily. 5 mg/mL otic drops 2020-0 Yes [id number] 1{packe Take 1 Univers vit 4-15 t} Packet by ity of 33-iron-fol 00:00: mouth [place] ic-dha 00 daily. Medical (SELECT-OB Branch + DHA) 29 mg iron-1 mg -250 mg combo pack colistin-ne 2020-0 Yes [id number] 1[drp] Place 1 Univers omycin-hc-t 4-15 Drop in ity o f [place] 00:00: both ears Dave as (CORTISPORI 00 4 (four) Medi michael N-TC) times Branch 3.3-3-10-0. daily. 5 mg/mL otic drops 2020-0 Yes [id number] 1{packe Take 1 Univers vit 4-15 t} Packet by ity of 33-iron-fol 00:00: mouth [place] ic-dha 00 daily. Medical (SELECT-OB Branch + DHA) 29 mg iron-1 mg -250 mg combo pack colistin-ne 2020-0 Yes [id number] 1[drp] Place 1 Univers omycin-hc-t 4-15 Drop in ity o f [place] 00:00: both ears Dave as (CORTISPORI 00 4 (four) Medi michael N-TC) times Branch 3.3-3-10-0. daily. 5 mg/mL otic drops 2020-0 Yes [id number] 1{packe Take 1 Univers vit 4-15 t} Packet by ity of 33-iron-fol 00:00: mouth [place] ic-dha 00 daily. Medical (SELECT-OB Branch + DHA) 29 mg iron-1 mg -250 mg combo pack colistin-ne 2020-0 Yes [id number] 1[drp] Place 1 Univers omycin-hc-t 4-15 Drop in ity o f [place] 00:00: both ears Dave as (CORTISPORI 00 4 (four) Medi michael N-TC) times Branch 3.3-3-10-0. daily. 5 mg/mL otic drops 2020-0 Yes [id number] 1{packe Take 1 Univers vit 4-15 t} Packet by ity of 33-iron-fol 00:00: mouth [place] ic-dha 00 daily. Medical (SELECT-OB Branch + DHA) 29 mg iron-1 mg -250 mg combo pack colistin-ne 2020-0 Yes [id number] 1[drp] Place 1 Univers omycin-hc-t 4-15 Drop in ity o f [place] 00:00: both ears Dave as (CORTISPORI 00 4 (four) Medi michael N-TC) times Branch 3.3-3-10-0. daily. 5 mg/mL otic drops 2020-0 Yes [id number] 1{packe Take 1 Univers vit 4-15 t} Packet by ity of 33-iron-fol 00:00: mouth [place] ic-dha 00 daily. Medical (SELECT-OB Branch + DHA) 29 mg iron-1 mg -250 mg combo pack colistin-ne 2020-0 Yes [id number] 1[drp] Place 1 Univers omycin-hc-t 4-15 Drop in ity o f [place] 00:00: both ears Dave as (CORTISPORI 00 4 (four) Medi michael N-TC) times Branch 3.3-3-10-0. daily. 5 mg/mL otic drops 2020-0 Yes [id number] 1{packe Take 1 Univers vit 4-15 t} Packet by ity of 33-iron-fol 00:00: mouth [place] ic-dha 00 daily. Medical (SELECT-OB Branch + DHA) 29 mg iron-1 mg -250 mg combo pack colistin-ne 2020-0 Yes [id number] 1[drp] Place 1 Univers omycin-hc-t 4-15 Drop in ity o f [place] 00:00: both ears Dave as (CORTISPORI 00 4 (four) Medi michael N-TC) times Branch 3.3-3-10-0. daily. 5 mg/mL otic drops 2020-0 Yes [id number] 1{packe Take 1 Univers vit 4-15 t} Packet by ity of 33-iron-fol 00:00: mouth [place] ic-dha 00 daily. Medical (SELECT-OB Branch + DHA) 29 mg iron-1 mg -250 mg combo pack colistin-ne 2020-0 Yes [id number] 1[drp] Place 1 Univers omycin-hc-t 4-15 Drop in ity o f [place] 00:00: both ears Dave as (CORTISPORI 00 4 (four) Medi michael N-TC) times Branch 3.3-3-10-0. daily. 5 mg/mL otic drops 2020-0 Yes [id number] 1{packe Take 1 Univers vit 4-15 t} Packet by ity of 33-iron-fol 00:00: mouth [place] ic-dha 00 daily. Medical (SELECT-OB Branch + DHA) 29 mg iron-1 mg -250 mg combo pack colistin-ne 2020-0 Yes [id number] 1[drp] Place 1 Univers omycin-hc-t 4-15 Drop in ity o f [place] 00:00: both ears Dave as (CORTISPORI 00 4 (four) Medi michael N-TC) times Branch 3.3-3-10-0. daily. 5 mg/mL otic drops 2020-0 Yes [id number] 1{packe Take 1 Univers vit 4-15 t} Packet by ity of 33-iron-fol 00:00: mouth [place] ic-dha 00 daily. Medical (SELECT-OB Branch + DHA) 29 mg iron-1 mg -250 mg combo pack colistin-ne 2020-0 Yes [id number] 1[drp] Place 1 Univers omycin-hc-t 4-15 Drop in ity o f [place] 00:00: both ears [place] as (CORTISPORI 00 4 (four) Medi michael N-TC) times Branch 3.3-3-10-0. daily. 5 mg/mL otic drops 2020-0 Yes [id number] 1{packe Take 1 Univers vit 4-15 t} Packet by ity of 33-iron-fol 00:00: mouth [place] ic-dha 00 daily. Medical (SELECT-OB Branch + DHA) 29 mg iron-1 mg -250 mg combo pack colistin-ne 2020-0 Yes [id number] 1[drp] Place 1 Univers omycin-hc-t 4-15 Drop in ity o f [place] 00:00: both ears Dave as (CORTISPORI 00 4 (four) Medi michael N-TC) times Branch 3.3-3-10-0. daily. 5 mg/mL otic drops 2020-0 Yes [id number] 1{packe Take 1 Univers vit 4-15 t} Packet by ity of 33-iron-fol 00:00: mouth [place] ic-dha 00 daily. Medical (SELECT-OB Branch + DHA) 29 mg iron-1 mg -250 mg combo pack colistin-ne 2020-0 Yes [id number] 1[drp] Place 1 Univers omycin-hc-t 4-15 Drop in ity o f [place] 00:00: both ears Dave as (CORTISPORI 00 4 (four) Medi michael N-TC) times Branch 3.3-3-10-0. daily. 5 mg/mL otic drops 2020-0 Yes [id number] 1{packe Take 1 Univers vit 4-15 t} Packet by ity of 33-iron-fol 00:00: mouth [place] ic-dha 00 daily. Medical (SELECT-OB Branch + DHA) 29 mg iron-1 mg -250 mg combo pack colistin-ne 2020-0 Yes [id number] 1[drp] Place 1 Univers omycin-hc-t 4-15 Drop in ity o f [place] 00:00: both ears Dave as (CORTISPORI 00 4 (four) Medi michael N-TC) times Branch 3.3-3-10-0. daily. 5 mg/mL otic drops 2020-0 Yes [id number] 1{packe Take 1 Univers vit 4-15 t} Packet by ity of 33-iron-fol 00:00: mouth [place] ic-dha 00 daily. Medical (SELECT-OB Branch + DHA) 29 mg iron-1 mg -250 mg combo pack colistin-ne 2019-0 Yes [id number] 1[drp] Place 1 Univers omycin-hc-t 4-15 Drop in ity o f [place] 00:00: both ears [place] as (CORTISPORI 00 4 (four) Medi michael N-TC) times Branch 3.3-3-10-0. daily. 5 mg/mL otic drops 2020-0 Yes [id number] 1{packe Take 1 Univers vit 4-15 t} Packet by ity of 33-iron-fol 00:00: mouth [place] ic-dha 00 daily. Medical (SELECT-OB Branch + DHA) 29 mg iron-1 mg -250 mg combo pack colistin-ne 2020-0 Yes [id number] 1[drp] Place 1 Univers omycin-hc-t 4-15 Drop in ity o f [place] 00:00: both ears [place] as (CORTISPORI 00 4 (four) Medi michael N-TC) times Branch 3.3-3-10-0. daily. 5 mg/mL otic drops 2020-0 Yes [id number] 1{packe Take 1 Univers vit 4-15 t} Packet by ity of 33-iron-fol 00:00: mouth [place] ic-dha 00 daily. Medical (SELECT-OB Branch + DHA) 29 mg iron-1 mg -250 mg combo pack colistin-ne 2020-0 Yes [id number] 1[drp] Place 1 Univers omycin-hc-t 4-15 Drop in ity o f [place] 00:00: both ears [place] as (CORTISPORI 00 4 (four) Medi michael N-TC) times Branch 3.3-3-10-0. daily. 5 mg/mL otic drops 2020-0 Yes [id number] 1{packe Take 1 Univers vit 4-15 t} Packet by ity of 33-iron-fol 00:00: mouth [place] ic-dha 00 daily. Medical (SELECT-OB Branch + DHA) 29 mg iron-1 mg -250 mg combo pack colistin-ne 2020-0 Yes [id number] 1[drp] Place 1 Univers omycin-hc-t 4-15 Drop in ity o f [place] 00:00: both ears [place] as (CORTISPORI 00 4 (four) Medi michael N-TC) times Branch 3.3-3-10-0. daily. 5 mg/mL otic drops 2020-0 Yes [id number] 1{packe Take 1 Univers vit 4-15 t} Packet by ity of 33-iron-fol 00:00: mouth [place] ic-dha 00 daily. Medical (SELECT-OB Branch + DHA) 29 mg iron-1 mg -250 mg combo pack colistin-ne 2020-0 Yes [id number] 1[drp] Place 1 Univers omycin-hc-t 4-15 Drop in ity o f [place] 00:00: both ears Dave as (CORTISPORI 00 4 (four) Medi michael N-TC) times Branch 3.3-3-10-0. daily. 5 mg/mL otic drops 2020-0 Yes [id number] 1{packe Take 1 Univers vit 4-15 t} Packet by ity of 33-iron-fol 00:00: mouth [place] ic-dha 00 daily. Medical (SELECT-OB Branch + DHA) 29 mg iron-1 mg -250 mg combo pack colistin-ne 2020-0 Yes [id number] 1[drp] Place 1 Univers omycin-hc-t 4-15 Drop in ity o f [place] 00:00: both ears Dave as (CORTISPORI 00 4 (four) Medi michael N-TC) times Branch 3.3-3-10-0. daily. 5 mg/mL otic drops 2020-0 Yes [id number] 1{packe Take 1 Univers vit 4-15 t} Packet by ity of 33-iron-fol 00:00: mouth [place] ic-dha 00 daily. Medical (SELECT-OB Branch + DHA) 29 mg iron-1 mg -250 mg combo pack colistin-ne 2020-0 Yes [id number] 1[drp] Place 1 Univers omycin-hc-t 4-15 Drop in ity o f honzonium 00:00: both ears Dave as (CORTISPORI 00 4 (four) Medi michael N-TC) times Branch 3.3-3-10-0. daily. 5 mg/mL otic drops 2020-0 Yes [id number] 1{packe Take 1 Univers vit 4-15 t} Packet by ity of 33-iron-fol 00:00: mouth [place] ic-dha 00 daily. Medical (SELECT-OB Branch + DHA) 29 mg iron-1 mg -250 mg combo pack colistin-ne 2020-0 Yes [id number] 1[drp] Place 1 Univers omycin-hc-t 4-15 Drop in ity o f [place] 00:00: both ears Dave as (CORTISPORI 00 4 (four) Medi michael N-TC) times Branch 3.3-3-10-0. daily. 5 mg/mL otic drops 2020-0 Yes [id number] 1{packe Take 1 Univers vit 4-15 t} Packet by ity of 33-iron-fol 00:00: mouth [place] ic-dha 00 daily. Medical (SELECT-OB Branch + DHA) 29 mg iron-1 mg -250 mg combo pack colistin-ne 2020-0 Yes [id number] 1[drp] Place 1 Univers omycin-hc-t 4-15 Drop in ity o f [place] 00:00: both ears Dave as (CORTISPORI 00 4 (four) Medi michael N-TC) times Branch 3.3-3-10-0. daily. 5 mg/mL otic drops 2020-0 Yes [id number] 1{packe Take 1 Univers vit 4-15 t} Packet by ity of 33-iron-fol 00:00: mouth [place] ic-dha 00 daily. Medical (SELECT-OB Branch + DHA) 29 mg iron-1 mg -250 mg combo pack colistin-ne 2020-0 Yes [id number] 1[drp] Place 1 Univers omycin-hc-t 4-15 Drop in ity o f [place] 00:00: both ears Dave as (CORTISPORI 00 4 (four) Medi michael N-TC) times Branch 3.3-3-10-0. daily. 5 mg/mL otic drops 2020-0 Yes [id number] 1{packe Take 1 Univers vit 4-15 t} Packet by ity of 33-iron-fol 00:00: mouth [place] ic-dha 00 daily. Medical (SELECT-OB Branch + DHA) 29 mg iron-1 mg -250 mg combo pack colistin-ne 2020-0 Yes [id number] 1[drp] Place 1 Univers omycin-hc-t 4-15 Drop in ity o f [place] 00:00: both ears Dave as (CORTISPORI 00 4 (four) Medi michael N-TC) times Branch 3.3-3-10-0. daily. 5 mg/mL otic drops 2020-0 Yes [id number] 1{packe Take 1 Univers vit 4-15 t} Packet by ity of 33-iron-fol 00:00: mouth [place] ic-dha 00 daily. Medical (SELECT-OB Branch + DHA) 29 mg iron-1 mg -250 mg combo pack colistin-ne 2020-0 Yes [id number] 1[drp] Place 1 Univers omycin-hc-t 4-15 Drop in ity o f [place] 00:00: both ears Dave as (CORTISPORI 00 4 (four) Medi michael N-TC) times Branch 3.3-3-10-0. daily. 5 mg/mL otic drops 2020-0 Yes [id number] 1{packe Take 1 Univers vit 4-15 t} Packet by ity of 33-iron-fol 00:00: mouth [place] ic-dha 00 daily. Medical (SELECT-OB Branch + DHA) 29 mg iron-1 mg -250 mg combo pack colistin-ne 2020-0 Yes [id number] 1[drp] Place 1 Univers omycin-hc-t 4-15 Drop in ity o f [place] 00:00: both ears Dave as (CORTISPORI 00 4 (four) Medi michael N-TC) times Branch 3.3-3-10-0. daily. 5 mg/mL otic drops 2020-0 Yes [id number] 1{packe Take 1 Univers vit 4-15 t} Packet by ity of 33-iron-fol 00:00: mouth [place] ic-dha 00 daily. Medical (SELECT-OB Branch + DHA) 29 mg iron-1 mg -250 mg combo pack colistin-ne 2020-0 Yes [id number] 1[drp] Place 1 Univers omycin-hc-t 4-15 Drop in ity o f [place] 00:00: both ears Dave as (CORTISPORI 00 4 (four) Medi michael N-TC) times Branch 3.3-3-10-0. daily. 5 mg/mL otic drops 2020-0 Yes [id number] 1{packe Take 1 Univers vit 4-15 t} Packet by ity of 33-iron-fol 00:00: mouth [place] ic-dha 00 daily. Medical (SELECT-OB Branch + DHA) 29 mg iron-1 mg -250 mg combo pack colistin-ne 2020-0 Yes [id number] 1[drp] Place 1 Univers omycin-hc-t 4-15 Drop in ity o f [place] 00:00: both ears Dave as (CORTISPORI 00 4 (four) Medi michael N-TC) times Branch 3.3-3-10-0. daily. 5 mg/mL otic drops 2020-0 Yes [id number] 1{packe Take 1 Univers vit 4-15 t} Packet by ity of 33-iron-fol 00:00: mouth [place] ic-dha 00 daily. Medical (SELECT-OB Branch + DHA) 29 mg iron-1 mg -250 mg combo pack Vital Signs Vital Name Observation Time Observation Value Comments Source Systolic blood 2022-11-09 15:57:00 111 mm[Hg] Univer rosalba pressure [facility] Diastolic blood 2022-11-09 15:57:00 77 mm[Hg] Unive [facility] Heart rate 2022-11-09 15:57:00 111 /min Universi ty of [facility] Body temperature 2022-11-09 15:57:00 37.11 Rosario Univ ersity of [facility] Body height 2022-11-09 15:57:00 170.2 cm Universi ty of [facility] Body weight 2022-11-09 15:57:00 115.758 kg Universi ty of [facility] BMI 2022-11-09 15:57:00 39.97 kg/m2 Universi ty of [facility] Systolic blood 2022-06-29 15:05:00 121 mm[Hg] UT [...] 13:16:00 113 mm[Hg] Univer sity of pressure [facility] Diastolic blood 2020-06-30 13:16:00 70 mm[Hg] Unive rsity of [facility] Heart rate 2020-06-30 13:16:00 110 /min Universi ty of [facility] Body temperature 2020-06-30 13:16:00 36.61 Rosario [facility] ersity of [facility] Respiratory rate 2020-06-30 13:16:00 16 /min Univ ersity of [facility] Body height 2020-06-30 13:16:00 170.2 cm Universi ty of [facility] Body weight 2020-06-30 13:16:00 102.513 kg Universi ty of [facility] BMI 2020-06-30 13:16:00 35.40 kg/m2 Universi ty of [facility] Systolic blood 2020-06-30 13:16:00 113 mm[Hg] Univer sity of [facility] Diastolic blood 2020-06-30 13:16:00 70 mm[Hg] Unive rsity of pressure [facility] Heart rate 2020-06-30 13:16:00 110 /min Universi ty of [facility] Body temperature 2020-06-30 13:16:00 36.61 Rosario Univ ersity of [facility] Respiratory rate 2020-06-30 13:16:00 16 /min Univ ersity of [facility] Body height 2020-06-30 13:16:00 170.2 cm Universi ty of [facility] Body weight 2020-06-30 13:16:00 102.513 kg Universi ty of [facility] BMI 2020-06-30 13:16:00 35.40 kg/m2 Universi ty of [facility] Systolic blood 2020-06-17 15:43:00 118 mm[Hg] Univer sity of pressure [facility] Diastolic blood 2020-06-17 15:43:00 76 mm[Hg] Unive rsity of pressure [facility] Heart rate 2020-06-17 15:43:00 96 /min Universi ty of [facility] Body temperature 2020-06-17 15:43:00 36.28 Rosario Univ ersity of [facility] Respiratory rate 2020-06-17 15:43:00 16 /min Univ ersity of [facility] Body height 2020-06-17 15:43:00 170.2 cm Universi ty of [facility] Body weight 2020-06-17 15:43:00 102.74 kg Universi ty of [facility] BMI 2020-06-17 15:43:00 35.47 kg/m2 Universi ty of [facility] Systolic blood 2020-05-13 18:05:00 126 mm[Hg] Univer sity of [facility] Diastolic blood 2020-05-13 18:05:00 71 mm[Hg] Unive rsity of pressure [facility] Heart rate 2020-05-13 18:05:00 87 /min Universi ty of [facility] Body temperature 2020-05-13 18:05:00 36.56 Rosario Univ ersity of [facility] Respiratory rate 2020-05-13 18:05:00 16 /min Univ ersity of [facility] Body height 2020-05-13 18:05:00 170.2 cm Universi ty of [facility] Body weight 2020-05-13 18:05:00 102.649 kg Universi ty of [facility] BMI 2020-05-13 18:05:00 35.44 kg/m2 Universi ty of [facility] Systolic blood 2020-04-14 21:00:00 129 mm[Hg] Univer sity of pressure [facility] Diastolic blood 2020-04-14 21:00:00 87 mm[Hg] Unive rsity of pressure [facility] Heart rate 2020-04-14 21:00:00 86 /min Universi ty of [facility] Body temperature 2020-04-14 21:00:00 36.67 Rosario Univ ersity of [facility] Respiratory rate 2020-04-14 21:00:00 16 /min Univ ersity of [facility] Body height 2020-04-14 21:00:00 170.2 cm Universi ty of [facility] Body weight 2020-04-14 21:00:00 103.137 kg Universi ty of [facility] BMI 2020-04-14 21:00:00 35.61 kg/m2 Universi ty of [facility] Systolic blood 2020-02-13 15:32:00 118 mm[Hg] Univer sity of pressure [facility] Diastolic blood 2020-02-13 15:32:00 67 mm[Hg] Unive rsity of pressure [facility] Heart rate 2020-02-13 15:32:00 92 /min Universi ty of [facility] Body temperature 2020-02-13 15:32:00 36.89 Rosario Univ ersity of [facility] Respiratory rate 2020-02-13 15:32:00 16 /min Univ ersity of [facility] Body height 2020-02-13 15:32:00 170.2 cm Universi ty of [facility] Body weight 2020-02-13 15:32:00 104.441 kg Universi ty of [facility] BMI 2020-02-13 15:32:00 36.06 kg/m2 Universi ty of [facility] Heart Rate 2023-02-17 13:08:45 [facility] [place] Temperature Oral (F) 2023-02-17 13:08:00 98.7 F [facility] [place] Systolic (mm Hg) 2023-02-17 13:06:53 [place] rial [place] Diastolic (mm Hg) 2023-02-17 13:06:53 Mem orial [place] Weight 2023-02-16 12:56:00 [facility] [place] BMI Calculated 2023-02-16 12:56:00 Memori al [place] Height 2023-02-09 14:39:00 5 [ft_i] Joseph [place] Weight 2023-02-09 14:39:00 [facility] [place] BMI Calculated 2023-02-09 14:39:00 Priscilla reyes [place] Systolic (mm Hg) 2022-11-17 14:22:00 [place] Diastolic (mm Hg) 2022-11-17 14:22:00 Mem gianfranco [place] Height 2022-11-16 20:56:00 5 [ft_i] [facility] [place] Weight 2022-11-16 20:56:00 [facility] [place] BMI Calculated 2022-11-16 20:56:00 Priscilla Torres Procedures Procedure Date / Time Performing Source Performed Clinician ASSIGNMENT OF BENEFITS 2022-11-09 Doctor Unassigned, Univer [facility] of 15:43:20 [place] [facility] [id number] 2020-09-23 SHEGR [facility] 00:00:00 [facility] POCT URINALYSIS 2020-06-17 Annie Elliott [facility] 15:51:00 [facility] POCT URINALYSIS 2020-06-17 Annie Elliott [facility] 15:50:00 [facility] POCT URINALYSIS 2020-05-13 Annie Elliott [facility] 00:00:00 [facility] POCT URINALYSIS 2020-04-14 Annie Elliott [facility] 21:13:00 [facility] GLUCOSE 1 HOUR POST PRANDIAL 2020-02-13 Annie Elliott [facility] 16:53:00 [facility] CBC WITH DIFFERENTIAL 2020-02-13 Annie Elliott Univers ity of 16:53:00 [facility] HEPATITIS B SURFACE ANTIGEN 2020-02-13 Annie Elliott U niversity of 16:53:00 [facility] HIV 1/2 AG-AB WITH REFLEX 2020-02-13 Annie Elliott Uni versity of 16:53:00 [facility] HB ABO GROUPING 2020-02-13 Annie Elliott [facility] 16:45:00 [facility] PAP SMEAR-LIQUID BASED-CP 2020-02-13 Annie Elliott Uni versity of 16:27:00 [facility] POCT TEST 2020-02-13 Annie Elliott [facility] of 15:34:00 [facility] POCT URINALYSIS 2020-02-13 Annie Elliott [place] of 15:33:00 [facility] ASSIGNMENT OF BENEFITS 2020-02-13 Doctor Unassigned, Gina navarrete of 15:13:36 [place] [facility] section [facility] EGD - Esophagogastroduodenoscopy [facility] Encounters Start End Encounter Admission Attending Care Care Encounter Source Date/Time Date/Time Type Type Clinicians Facility Department ID 2022-09-03 Outpatient [id number] Memoria 20:12:22 [id number] Harold[place] [id number] 2022-06-29 Outpatient [facility] [id number] [place] 09:59:21 [id number] [facility] 2022-06-03 Outpatient [facility] [id number] [place] 14:35:51 [id number] [facility] 2022-02-05 Outpatient [facility]CA [facility] [id number] [place] 09:43:36 SAYEEDA [id number] [facility] 2020-09-29 Inpatient [facility] [id number] [facility] 08:28[facility]00 [facility] 2020-09-23 Inpatient AMINATA Fenton [facility] [id number] [facility] 10:00:00 Jeremiah Copeland [facility] 2023-02-21 2023-02-21 Outpatient Gidvani_B VFP VFP [id number] 04-19 [facility] 00:00:00 00:00:00 [id number] Family Practic e 2023-02-16 2023-02-17 Inpatient [facility] [id number] Memoria 12:28:00 16:50:[address] [place] [address] 2023-02-16 2023-02-17 Inpatient [facility] [id number] Memoria 12:28:00 16:50:[address] [place] [address] 2023-02-16 2023-02-17 Inpatient ROSAURA HANSON SHYANN [id number] MH 07:28:00 11:50:00 [facility] 2023-02-16 2023-02-17 Outpatient Megan ROSAURA SE [id number] 07:28:00 11:50:00 [place] 01 [place] 2023-02-16 2023-02-16 Outpatient [place]udayROSAURA mcnamara [place] [id number] 09:30:00 09:30:00 [place] 01 Imariabe 2023-02-03 2023-02-03 Outpatient Gidvani_B VFP VFP [id number] 04-19 Village 00:00:00 00:00:00 [id number] Family Practic e 2022-12-29 2022-12-29 Outpatient Gidvani_B VFP VFP [id number] 04-19 [facility] 00:00:00 00:00:00 [id number] Family Practic e 2022-12-01 2022-12-01 Outpatient [facility] [id number] Univers 15:00:00 [facility] 2022-11-30 2022-11-30 Outpatient O[facility]ar [facility] [id number] Univers 00:00:00 00:00:00 [facility] 2022-11-19 2022-11-19 Telephone [facility] 1.2.840.114 [id number] Univers 00:00:00 00:00:00 Dileep CHIN 350.1.13.10 i martha NUNO 4.2.7.2.686 Behzad SILVERIO [id number] [address] 2022-11-17 2022-11-17 Bedded [facility] [id number] Memoria 12:10:00 14:43:00 Out[place] 00 [facility] 2022-11-17 2022-11-17 Bedded [facility] [id number] Memoria 12:10:00 14:43:00 Outpatient [place] 00 [facility] 2022-11-17 2022-11-17 Outpatient SARAI HANSON SHYANN [id number] [id number] 06:10:00 08:43:00 OBONORUMA 2022-11-17 2022-11-17 Outpatient MADDIE HansonPL [facility] [id number] 06:10:00 08:43:00 [place] 00 Imariabe 2022-11-12 2022-11-12 Outpatient R CHIP [facility] [id number] Univers 00:00:00 00:00:[address] [facility] [place] 2022-11-09 2022-11-09 Registered Nursing Professor 2, Adc Lab [facility] 1.2.840.114 [id number] Univers 11:15:00 11:30:00 Visit Dileep Saunders 350.1.13.10 ity [facility] 4.2.7.2.686 [place] PROF[place] [id number] Co dical NAL 353 [facility] 2022-11-09 2022-11-09 Outpatient R CHIP [facility] [id number] Univers 10:00:00 10:48:[address] [facility] [place] 2022-11-09 2022-11-09 [facility] [id number] Univers 10:00:00 10:48:57 Visit Dileep CHIN 350.1.13.10 i ty [facility] 4.2.7.2.686 [place] [id number] Co dical NAL 134 [facility] 2022-11-09 2022-11-09 Orders Doctor [facility] 1.2.840.114 [id number] Univers 00:00:00 00:00:00 Only Unassigned, ARUN 350.1.13.10 ity of [facility] 4.2.7.2.686 Dave as [id number] [address] 2022-10-12 2022-10-12 Outpatient R [facility] [id number] Univers 13:30:00 13:30:[address] [facility] [place] 2022-08-30 2022-09-29 Recurring [facility] [id number] Memoria 14:00:00 05:59:[address] [place] [address] 2022-08-30 2022-09-29 Recurring [facility] [id number] Memoria 14:00:00 05:59:00 Haroldo 00 l [facility] 2022-08-30 2022-09-28 Outpatient ROSAURA HANSON SHYANN [id number] MH 09:00:00 23:59:00 OBONORUMA [facility] 2022-08-30 2022-09-28 Outpatient MADDIE Hanson SE [id number] 09:00:00 23:59:00 [place] 00 Imariabe 2022-09-13 2022-09-13 Outpatient Oskar SAUNDERS [facility] [id number] Univers 13:00:00 13:00:00 [facility] 2022-08-04 2022-08-04 Outpatient [facility] [id number] Univers 09:00:00 09:00:00 [facility] 2022-07-29 2022-07-29 Outpatient Oskar [facility] [id number] Univers 13:00:00 13:00:00 [facility] 2022-07-13 2022-07-13 Outpatient Oskar [facility] [id number] Univers 10:00:00 10:00:00 [facility] 2022-06-29 2022-06-29 Office CECE Nielson LISETTE [id number] [id number] [place] 10:00:00 12:35:01 Visit Loy JONES 350.1.13.58 [facility] 9.2.7.2.686 SPECIALTY [id number] CLINIC 9 2022-01-15 2022-01-15 Emergency EM Martha Leon, [facility] [id number] [facility] 17:24:00 18:34:00 Ebony 75 [facility] 2021-09-30 2021-09-30 Outpatient Oskar WATT [facility] [id number] Univers 10:00:00 10:00:00 JOSE victor [facility] 2020-09-19 2020-09-19 [id number] [facility] 10:00:00 10:00:00 Jeremiah Chua [facility] 2020-07-14 2020-07-14 Outpatient R EARL [facility] [id number] Univers 12:45:00 12:45:00 ANNIE knapp adi victor [facility] 2020-07-14 2020-07-14 Outpatient R EARL [facility] [id number] Univers 12:45:00 12:45:00 ANNIE knapp o f [facility] 2020-06-30 2020-06-30 Outpatient R [facility] [id number] Univers 08:30:00 08:30:[address] [facility] [place] 2020-06-30 2020-06-30 Nurse Visit, [facility] 1.2.840.114 [id number] 08:04:52 08:19:52 Visit Nirmaleddie NIGHT TIME NANNY 350.1.13.10 Nurse [facility] 4.2.7.2.686 MATERNAL [id number] & CHILD 107 [facility] 2020-06-30 2020-06-30 [facility] 1.2 .840.114 [id number] [facility] 08:04:52 08:19:52 Visit Annie Elliott NIGHT TIME NANNY 350.1.13.10 [facility] 4.2.7.2.686 Dave as MATERNAL [id number] Med ical & CHILD [address] [place] [address] 2020-06-23 2020-06-23 Telephone Earl [facility] [id number] 00:00:00 00:00:00 Annie R NIGHT TIME NANNY 350.1.13.10 REGIONAL 4.2.7.2.686 MATERNAL [id number] & CHILD 107 [facility] 2020-06-23 2020-06-23 Telephone Earl [facility] [id number] [id number] 00:00:00 00:00:00 Anaa R NIGHT TIME NANNY 350.1.13.10 REGIONAL 4.2.7.2.686 MATERNAL [id number] & CHILD 107 [facility] 2020-06-23 2020-06-23 Telephone Earl [facility] [id number] Univers 00:00:00 00:00:00 Roshunda R NIGHT TIME NANNY 350.1.13.10 ity of REGIONAL 4.2.7.2.686 Dave as MATERNAL [id number] [facility] ical & CHILD [address] [place] [address] 2020-06-23 2020-06-23 [facility] [id number] Univers 00:00:00 00:00:00 Roshunda R NIGHT TIME NANNY 350.1.13.10 ity of REGIONAL 4.2.7.2.686 Dave as MATERNAL [id number] [facility] ical & CHILD [address] [place] [address] 2020-06-20 2020-06-20 Registered Nursing Professor Lab, [facility] 1.2.840. 114 [id number] Univers 07:58:46 08:45:00 Visit Marcella Elliottmeredith R NIGHT TIME NANNY 350.1.13.10 ity of REGIONAL 4.2.7.2.686 Dave as MATERNAL [phone] [facility] & CHILD [address] [place] [address] 2020-06-20 2020-06-20 [facility]patient [facility] [id number] Univers 08:15:00 08:15:00 ROSHUNDA ity o f [facility] 2020-06-18 2020-06-18 Pending sale to [facility] [id number] Univers 00:00:00 00:00:00 Roshunda R NIGHT TIME NANNY 350.1.13.10 ity of REGIONAL 4.2.7.2.686 Dave as MATERNAL [id number] [facility] & CHILD [address] [place] [address] 2020-06-17 2020-06-17 Routine [facility] 1.2.840.114 [id number] Univers 10:25:25 11:09:57 Roshunda R NIGHT TIME NANNY 350.1.13.10 ity of Visit REGIONAL 4.2.7.2.686 Dave as MATERNAL [id number] [facility] & CHILD [address] [place] [address] 2020-06-17 2020-06-17 Outpatient R [facility] [id number] Univers 10:45:00 10:45:00 ROSHUNDA ity o f [facility] 2020-06-13 2020-06-13 Outpatient R EARL [facility] [id number] Univers 08:45:00 08:45:00 MARCELLANDYonny knapp o joaquín [facility] 2020-06-09 2020-06-09 Outpatient R EARL [facility] [id number] Univers 12:45:00 12:45:00 ANNIE knapp o joaquín [facility] 2020-06-09 2020-06-09 Outpatient R EARL [facility] [id number] Univers 12:45:00 12:45:00 ANNIE knapp o joaquín [facility] 2020-05-13 2020-05-13 Routine Earl [facility] 1.2.840.114 [id number] Univers 12:54:09 13:09:09 Annie R NIGHT TIME NANNY 350.1.13.10 ity of Visit REGIONAL 4.2.7.2.686 Dave as MATERNAL [id number] [facility] ical & CHILD [address] [place] [address] 2020-05-13 2020-05-13 Registered Nursing Professor Ultrasound, Ang-Mfm [facility] 1.2 .840.114 [id number] Univers 11:01:46 12:28:32 Visit Kraig Kan NIGHT TIME NANNY 350.1.13.10 ity of REGIONAL 4.2.7.2.686 Dave as MATERNAL [id number] [facility] ical & CHILD [address] [place] [address] 2020-05-13 2020-05-13 Outpatient R [facility] [id number] Univers 10:45:00 10:45:00 ity of [facility] 2020-05-13 2020-05-13 Abstract Earl [facility] 1.2.840.114 [id number] Univers 00:00:00 00:00:00 Rosmariposanda R NIGHT TIME NANNY 350.1.13.10 ity of REGIONAL 4.2.7.2.686 Dave as MATERNAL [id number] [facility] ical & CHILD [address] [place] [address] 2020-04-16 2020-04-16 Patient Doctor [facility] 1.2.840.114 [id number] Univers 00:00:00 00:00:00 Secure Msg Unassigned, NIGHT TIME NANNY 350.1.13.10 ity of [place] REGIONAL 4.2.7.2.686 Dave as MATERNAL [id number] [facility] & CHILD [address] [place] [address] 2020-04-14 2020-04-14 Routine [facility] 1.2.840.114 [id number] Univers 15:52:32 16:24:52 Roshunda R NIGHT TIME NANNY 350.1.13.10 ity of Visit REGIONAL 4.2.7.2.686 Dave as MATERNAL [id number] [address] 2020-04-14 2020-04-14 [facility] [id number] Univers 15:45:00 15:45:00 ANAA aria o [facility] 2020-04-07 2020-04-07 Outpatient [facility] [id number] Univers 10:30:00 10:30:00 ANNIE knapp o [facility] 2020-04-04 2020-04-04 Telephone [facility] [id number] Univers 00:00:00 00:00:00 Rosmariposanda R NIGHT TIME NANNY 350.1.13.10 ity of [facility] [id number] Dave as MATERNAL [phone] [address] 2020-03-27 2020-03-27 Outpatient R VUONG [facility] [id number] Univers 10:30:00 10:30:00 FELICITAS knapp of [facility] 2020-03-27 2020-03-27 Telemedici Risk, Anr-Nqrwr-Si/High [facility] [id number] Univers 08:51:09 09:06:09 ne Visit Felicitas Vuong NIGHT TIME NANNY [id number] ity of [facility] [id number] Dave as MATERNAL [phone] [facility] & CHILD [address] [place] [address] 2020-03-11 2020-03-11 [facility]patient [facility] [id number] Univers 13:30:00 13:30:00 ROSMARIPOSANDA ity o f [facility] 2020-03-11 2020-03-11 Telemedici Earl [facility] 1.2.840.114 [id number] Univers 07:43:23 07:58:23 ne Visit Rosmariposanda R NIGHT TIME NANNY 350.1.13.10 ity of REGIONAL [id number] Dave as MATERNAL [phone] Med ical & CHILD [address] [place] [address] 2020-03-05 2020-03-05 Patient Doctor [facility] 1.2.840.114 [id number] Univers 00:00:00 00:00:00 Secure Msg Unassigned, NIGHT TIME NANNY 350.1.13.10 ity of [place] REGIONAL [id number] Dave as MATERNAL [phone] [facility] & CHILD [address] [place] [address] 2020-03-03 2020-03-03 Patient Doctor [facility] 1.2.840.114 [id number] Univers 00:00:00 00:00:00 Secure Msg Unassigned, NIGHT TIME NANNY 350.1.13.10 ity of [place] REGIONAL 4.2.7.2.686 Dave as MATERNAL [phone] Med ical & CHILD [address] [place] [address] 2020-02-20 2020-02-20 Outpatient Oskar ELLIOTT [facility] [id number] Univers 13:15:00 13:15:00 ROSHUNDA ity o f [facility] 2020-02-15 2020-02-15 Patient Doctor [facility] 1.2.840.114 [id number] Univers 00:00:00 00:00:00 Secure Msg Unassigned, NIGHT TIME NANNY 350.1.13.10 ity of [place] REGIONAL 4.2.7.2.686 Dave as MATERNAL [phone] [facility] ical & CHILD [address] [place] [address] 2020-02-13 2020-02-13 Initial Earl [facility] 1.2.840.114 [id number] Univers 10:21:32 11:23:31 Rosmariposanda R NIGHT TIME NANNY 350.1.13.10 ity of Visit REGIONAL [id number] Dave as MATERNAL [phone] [facility] ical & CHILD [address] [place] [address] 2020-02-13 2020-02-13 Outpatient R EARL, [facility] [id number] Univers 09:45:00 09:45:00 ANNIE ity o f [facility] 2020-02-13 2020-02-13 Orders Doctor TASHA 1.2.840.114 [id number] Univers 00:00:00 00:00:00 Only Unassigned, ARUN 350.1.13.10 ity of [place] [facility] 4.2.7.2.686 Dave as [phone] [address] Results Test Description Test Time Test Comments Results Result Comments Source CHEMISTRY 2023-02-17 10:39:00 Test Item Value Reference Range Interpretation Comme nts Alk Phos (test code = Alk Phos) 81 39-136 [facility]YadrpqfSKDPDFAKF2217-17-95 10:39:00 Test Item Value Reference Range Interpretation Comments Bili Total (test code = Bili Total) 0.5 0.2-1.3 [facility] HospitalShqbeksIYBOPJPJY0332-17-18 10:39:00 Test Item Value Reference Range Interpretation Comments AGAP (test code = AGAP) 9.3 10.0-20.0 [facility] HospitalHaizdrmEJPOZXLIE6937-58-38 10:39:00 Test Item Value Reference Range Interpretation Comments B/C Ratio (test code = B/C Ratio) 14 1 6-25 [facility] HospitalHhmivztPOESTAXAN7403-99-54 10:39:00 Test Item Value Reference Range Interpretation Comments Globulin (test code = Globulin) 3.6 2.7-4.2 [facility] HospitalAydsbpwUHCTQWJNF9138-87-99 10:39:00 Test Item Value Reference Range Interpretation Comments A/G Ratio (test code = A/G Ratio) 1.0 1 0.7-1.6 [facility] HospitalZzujmrtIWSPJZLQV6250-90-13 10:39:00 Test Item Value Reference Range Interpretation Comments eGFR (test code = eGFR) 129 [facility] HospitalLklppjxSXHBORXQWQ6889-47-23 10:39:00 Test Item Value Reference Range Interpretation Comments Segs (test code = Segs) 68.1 45.0-75.0 [facility] HospitalTytsqtrLBWLITEEKB0175-05-46 10:39:00 Test Item Value Reference Range Interpretation Comments Lymphocytes (test code = Lymphocytes) 23.0 20.0-40.0 [facility] HospitalJhyljbjXPUVTUKUZB4269-02-23 10:39:00 Test Item Value Reference Range Interpretation Comments Monocytes (test code = Monocytes) 8.1 2.0-12.0 [facility] CenterDrukznlXGUDVLGNOC4372-78-61 10:39:00 Test Item Value Reference Range Interpretation Comments Eosinophils (test code = 0.2 See_Comment [A utomated message] The Eosinophils) system which ge nerated this result tra nsmitted reference range : <=4.0. The reference r marleen was not used to int erpret this result as normal/abnormal . [facility] CenterRgcyksjFYSEGIGUIB9235-79-65 10:39:00 Test Item Value Reference Range Interpretation Comments Basophils (test code = 0.6 See_Comment [Aut omated message] The Basophils) system which ge nerated this result tra nsmitted reference range : <=1.0. The reference r marleen was not used to int erpret this result as normal/abnormal . [facility] CenterMruihcuCXKSRDOHEX8049-16-35 10:39:00 Test Item Value Reference Range Interpretation Comments Neutrophils # (test code = Neutrophils 5.1 1.5-8.1 #) [facility] CenterWlubkizZQPRTRNNJO0858-78-34 10:39:00 Test Item Value Reference Range Interpretation Comments Lymphocytes # (test code = Lymphocytes 1.7 1.0-5.5 #) [facility] CenterTswurqeFHTJEXERMW7201-46-35 10:39:00 Test Item Value Reference Range Interpretation Comments Monocytes # (test code 0.6 See_Comment [Aut omated message] The = Monocytes #) system which generated this result tra nsmitted reference range : <=0.8. The reference r marleen was not used to int erpret this result as normal/abnormal . [facility] CenterOtgarwgZUHDJVFOST1161-37-85 10:39:00 Test Item Value Reference Range Interpretation Comments WBC (test code = WBC) 7.5 3.7-10.4 [place] 584733-04-20 10:39:00 Test Item Value Reference Range Interpretation Comments RBC (test code = RBC) 3.95 4.20-5.40 [place] 584733-04-20 10:39:00 Test Item Value Reference Range Interpretation Comments Hgb (test code = Hgb) 12.2 12.0-16.0 [facility] CenterKukuguxIPDKEDESPO7903-70-99 10:39:00 Test Item Value Reference Range Interpretation Comments Hct (test code = Hct) 36.2 36.0-48.0 [facility] CenterNrrgaleHKGVRMBVMG4347-29-75 10:39:00 Test Item Value Reference Range Interpretation Comments MCV (test code = MCV) 91.6 80.0-98.0 [facility] CenterRkqkpygBOJHKNQRLO2095-70-51 10:39:00 Test Item Value Reference Range Interpretation Comments MCH (test code = MCH) 30.9 pg 27.0-31.0 [facility] CenterHrntytzJSTKAWKYQH7603-12-88 10:39:00 Test Item Value Reference Range Interpretation Comments MCHC (test code = MCHC) 33.7 32.0-36.0 [facility] CenterXoffrvzVQQLVLPVGH6908-99-80 10:39:00 Test Item Value Reference Range Interpretation Comments RDW (test code = RDW) 13.1 11.5-14.5 [facility] CenterPtkjwweWCDUCPAEKT8038-14-15 10:39:00 Test Item Value Reference Range Interpretation Comments Platelet (test code = Platelet) 326 133-450 [facility] CenterAcjooorDCGCBBVHDS6377-00-98 10:39:00 Test Item Value Reference Range Interpretation Comments MPV (test code = MPV) 7.6 7.4-10.4 [facility]JdmivfzVJVMXSDFB1473-10-89 10:39:00 Test Item Value Reference Range Interpretation Comments Glucose Lvl (test code = Glucose Lvl) 111 70-99 [facility]wallRkwqegxICOTECZYZ4237-70-99 10:39:00 Test Item Value Reference Range Interpretation Comments BUN (test code = BUN) 7 7-22 [facility]wallTjqtmulJEJUIVGTV0803-73-24 10:39:00 Test Item Value Reference Range Interpretation Comments Creatinine Lvl (test code = Creatinine 0.51 0.50-1.40 Lvl) [facility]wallKuvftzcKWCZHCUGV3380-55-20 10:39:00 Test Item Value Reference Range Interpretation Comments Sodium Lvl (test code = Sodium Lvl) 141 135-145 [facility]wallJxyfbjeGQZWXJWDF6764-65-20 10:39:00 Test Item Value Reference Range Interpretation Comments Potassium Lvl (test code = Potassium 3.3 3.5-5.1 Lvl) [facility]wallOjvtwnvCDUKUZUUP8687-96-91 10:39:00 Test Item Value Reference Range Interpretation Comments Chloride Lvl (test code = Chloride Lvl) 111 95-109 [facility]wallKbzkmxkJPYVFAYGG2299-46-20 10:39:00 Test Item Value Reference Range Interpretation Comments CO2 (test code = CO2) 24 24-32 [facility] HospitalMfkiknlNBIHTWUWM4367-98-18 10:39:00 Test Item Value Reference Range Interpretation Comments Calcium Lvl (test code = Calcium Lvl) 9.1 8.5-10.5 [facility] HospitalCptipapDQQKOREUT6769-78-23 10:39:00 Test Item Value Reference Range Interpretation Comments Total Protein (test code = Total 7.1 6.4-8.4 Protein) [facility]wallTmhcyfcHLXKEZFHV5245-04-61 10:39:00 Test Item Value Reference Range Interpretation Comments Albumin Lvl (test code = Albumin Lvl) 3.5 3.5-5.0 [facility] HospitalCpcdymqMQQCNZBKU8981-83-73 10:39:00 Test Item Value Reference Range Interpretation Comments ALT (test code = ALT) 58 See_Comment [Auto mated message] The system which ge nerated this result transmit jessie reference range : <=65. The reference range was not used to interpr et this result as mary l/abnormal. [facility] HospitalZlwgiqmILWLMNLYH3570-80-83 10:39:00 Test Item Value Reference Range Interpretation Comments AST (test code = AST) 30 See_Comment [Auto mated message] The system which ge nerated this result transmit jessie reference range : <=37. The reference range was not used to interpr et this result as mary l/abnormal. [facility] HospitalWmkudrbPCTRESXWU5552-63-71 10:39:00 Test Item Value Reference Range Interpretation Comments Alk Phos (test code = Alk Phos) 81 39-136 [facility] HospitalEledkgmXHOUQXRMS8254-93-37 10:39:00 Test Item Value Reference Range Interpretation Comments Bili Total (test code = Bili Total) 0.5 0.2-1.3 [facility] HospitalWczqiqmOHBIGSZGQ7518-27-46 10:39:00 Test Item Value Reference Range Interpretation Comments AGAP (test code = AGAP) 9.3 10.0-20.0 [facility] HospitalSnxwzrySRGBPECZS8277-78-14 10:39:00 Test Item Value Reference Range Interpretation Comments B/C Ratio (test code = B/C Ratio) 14 1 6-25 [facility] HospitalFarmdwyKIIYPEXYI4552-27-38 10:39:00 Test Item Value Reference Range Interpretation Comments Globulin (test code = Globulin) 3.6 2.7-4.2 [place] 205193-04-20 10:39:00 Test Item Value Reference Range Interpretation Comments A/G Ratio (test code = A/G Ratio) 1.0 1 0.7-1.6 [place] 205193-04-20 10:39:00 Test Item Value Reference Range Interpretation Comments eGFR (test code = eGFR) 129 [facility] CenterOkpvscfMTEXAMADWY4638-32-80 10:39:00 Test Item Value Reference Range Interpretation Comments Segs (test code = Segs) 68.1 45.0-75.0 [place] 584733-04-20 10:39:00 Test Item Value Reference Range Interpretation Comments Lymphocytes (test code = Lymphocytes) 23.0 20.0-40.0 [place] 584733-04-20 10:39:00 Test Item Value Reference Range Interpretation Comments Monocytes (test code = Monocytes) 8.1 2.0-12.0 [place] 584733-04-20 10:39:00 Test Item Value Reference Range Interpretation Comments Eosinophils (test code = 0.2 See_Comment [A utomated message] The Eosinophils) system which ge nerated this result tra nsmitted reference range : <=4.0. The reference r marleen was not used to int erpret this result as normal/abnormal . [facility] CenterObkoaopGFGQXICDNW8779-90-66 10:39:00 Test Item Value Reference Range Interpretation Comments Basophils (test code = 0.6 See_Comment [Aut omated message] The Basophils) system which ge nerated this result tra nsmitted reference range : <=1.0. The reference r marleen was not used to int erpret this result as normal/abnormal . [facility] CenterMnvgpqbCPLTEZCQXI3182-03-99 10:39:00 Test Item Value Reference Range Interpretation Comments Neutrophils # (test code = Neutrophils 5.1 1.5-8.1 #) [place] [address]-04-20 10:39:00 Test Item Value Reference Range Interpretation Comments Lymphocytes # (test code = Lymphocytes 1.7 1.0-5.5 #) [facility] CenterViithuaEOFSUZADQQ7540-76-02 10:39:00 Test Item Value Reference Range Interpretation Comments Monocytes # (test code 0.6 See_Comment [Aut omated message] The = Monocytes #) system which generated this result tra nsmitted reference range : <=0.8. The reference r marleen was not used to int erpret this result as normal/abnormal . [facility] CenterWbvhlrkMMIXWAEYXJ5649-24-88 10:39:00 Test Item Value Reference Range Interpretation Comments WBC (test code = WBC) 7.5 3.7-10.4 [facility] CenterUzjxfxnIOMJADOZZO3168-08-44 10:39:00 Test Item Value Reference Range Interpretation Comments RBC (test code = RBC) 3.95 4.20-5.40 [facility] CenterWeresvoDTNQFNTHUI8768-05-74 10:39:00 Test Item Value Reference Range Interpretation Comments Hgb (test code = Hgb) 12.2 12.0-16.0 [place] 584733-04-20 10:39:00 Test Item Value Reference Range Interpretation Comments Hct (test code = Hct) 36.2 36.0-48.0 [facility] CenterIjipldpDBQVIKBSKU6968-58-87 10:39:00 Test Item Value Reference Range Interpretation Comments MCV (test code = MCV) 91.6 80.0-98.0 [facility] CenterAulcrxwFQNJAMGCXZ1860-22-94 10:39:00 Test Item Value Reference Range Interpretation Comments MCH (test code = MCH) 30.9 pg 27.0-31.0 [facility] CenterEnktmikHPBDLRUMLP8512-70-76 10:39:00 Test Item Value Reference Range Interpretation Comments MCHC (test code = MCHC) 33.7 32.0-36.0 [facility] CenterArykcgvSHZQPNETZI5622-02-27 10:39:00 Test Item Value Reference Range Interpretation Comments RDW (test code = RDW) 13.1 11.5-14.5 [facility] CenterWovlfknJVNTJXDKPB0161-45-89 10:39:00 Test Item Value Reference Range Interpretation Comments Platelet (test code = Platelet) 326 133-450 [facility] CenterTcdzkpsCUWBDLYGLH6501-93-18 10:39:00 Test Item Value Reference Range Interpretation Comments MPV (test code = MPV) 7.6 7.4-10.4 [facility]wallFwdqmltNFQWXKKWW8586-94-33 10:39:00 Test Item Value Reference Range Interpretation Comments Glucose Lvl (test code = Glucose Lvl) 111 70-99 [facility]wallWzxbztmZNVNDAQNZ0982-26-97 10:39:00 Test Item Value Reference Range Interpretation Comments BUN (test code = BUN) 7 7-22 [facility] RockwallDzdxvtdWYYDJAJRD6690-95-51 10:39:00 Test Item Value Reference Range Interpretation Comments Creatinine Lvl (test code = Creatinine 0.51 0.50-1.40 Lvl) [facility] RockwallHxutmzrVIUCBIMAY1858-67-80 10:39:00 Test Item Value Reference Range Interpretation Comments Sodium Lvl (test code = Sodium Lvl) 141 135-145 [place] 205193-04-20 10:39:00 Test Item Value Reference Range Interpretation Comments Potassium Lvl (test code = Potassium 3.3 3.5-5.1 Lvl) [facility]wallBzdbeiwZXOXFCCJI2600-49-02 10:39:00 Test Item Value Reference Range Interpretation Comments Chloride Lvl (test code = Chloride Lvl) 111 95-109 [facility]wallZkqwcfuUOUYCQDOZ1246-79-94 10:39:00 Test Item Value Reference Range Interpretation Comments CO2 (test code = CO2) 24 24-32 [facility]wallCnsafkqWVZCWIXOK9004-78-85 10:39:00 Test Item Value Reference Range Interpretation Comments Calcium Lvl (test code = Calcium Lvl) 9.1 8.5-10.5 [facility]wallXywiwaaVDTJWDBHQ1725-47-69 10:39:00 Test Item Value Reference Range Interpretation Comments Total Protein (test code = Total 7.1 6.4-8.4 Protein) [facility] RockwallUychwepRLNLTJBME3353-69-65 10:39:00 Test Item Value Reference Range Interpretation Comments Albumin Lvl (test code = Albumin Lvl) 3.5 3.5-5.0 [facility] RockwallNvtenkeKVERKQZLO9394-53-11 10:39:00 Test Item Value Reference Range Interpretation Comments ALT (test code = ALT) 58 See_Comment [Auto mated message] The system which nerated this result transmit jessie reference range : <=65. The reference range was not used to interpr et this result as mary l/abnormal. [facility] RockwallQckmxkzMUHIECIOK1629-92-10 10:39:00 Test Item Value Reference Range Interpretation Comments AST (test code = AST) 30 See_Comment [Auto mated message] The system which nerated this result transmit jessie reference range : <=37. The reference range was not used to interpr et this result as mary l/abnormal. [facility]2023-04-19 13:23:00 Test Item Value Reference Range Interpretation Comments Glucose POC (test code = Glucose POC) 77 70-99 [place] [address]-04-19 13:23:00 Test Item Value Reference Range Interpretation Comments Gluc POC Comment 1 (test code Notified RN/MD = Gluc POC Comment 1) [place] [address]-04-19 13:23:00 Test Item Value Reference Range Interpretation Comments Glucose POC (test code = Glucose POC) 77 70-99 [place] [address]-04-19 13:23:00 Test Item Value Reference Range Interpretation Comments Gluc POC Comment 1 (test code Notified RN/MD = Gluc POC Comment 1) [address]04-19 13:02:00 Test Item Value Reference Range Interpretation Comments U Preg (test code = U Negative (02/16/23 8:02 Preg) AM) [address]04-19 13:02:00 Test Item Value Reference Range Interpretation Comments U Preg (test code = U Negative (02/16/23 8:02 Preg) AM) [place] 584733-04-13 15:40:00 Test Item Value Reference Range Interpretation Comments Basophils (test code = 0.8 See_Comment [Aut omated message] The Basophils) system which ge nerated this result tra nsmitted reference range : <=1.0. The reference r marleen was not used to int erpret this result as normal/abnormal . [facility] CenterQygaeieIYNBLMQEWM5882-13-94 15:40:00 Test Item Value Reference Range Interpretation Comments Neutrophils # (test code = Neutrophils 4.2 1.5-8.1 #) [place] 584733-04-13 15:40:00 Test Item Value Reference Range Interpretation Comments Lymphocytes # (test code = Lymphocytes 1.9 1.0-5.5 #) [place] [address]-04-13 15:40:00 Test Item Value Reference Range Interpretation Comments Monocytes # (test code 0.5 See_Comment [Aut omated message] The = Monocytes #) system which generated this result tra nsmitted reference range : <=0.8. The reference r marleen was not used to int erpret this result as normal/abnormal . [place] 584733-04-13 15:40:00 Test Item Value Reference Range Interpretation Comments Eosinophils # (test code 0.1 See_Comment [A utomated message] The = Eosinophils #) system whic h generated this result tra nsmitted reference range : <=0.5. The reference r marleen was not used to int erpret this result as normal/abnormal . [facility] CenterCftcdzlWTKRLJBYIO9065-37-54 15:40:00 Test Item Value Reference Range Interpretation Comments Basophils # (test code 0.1 See_Comment [Aut omated message] The = Basophils #) system which generated this result tra nsmitted reference range : <=0.2. The reference r marleen was not used to int erpret this result as normal/abnormal . [facility] CenterZlegzfmHNXJERJYFS9877-62-49 15:40:00 Test Item Value Reference Range Interpretation Comments WBC (test code = WBC) 6.7 3.7-10.4 [place] 584733-04-13 15:40:00 Test Item Value Reference Range Interpretation Comments RBC (test code = RBC) 4.36 4.20-5.40 [facility] CenterUbvffvnYIDNESOMLE8017-21-66 15:40:00 Test Item Value Reference Range Interpretation Comments Hgb (test code = Hgb) 13.6 12.0-16.0 [facility] CenterGvhcimwNPVMUAIPWG9763-55-59 15:40:00 Test Item Value Reference Range Interpretation Comments Hct (test code = Hct) 40.3 36.0-48.0 [facility] CenterZoqnzfrZMCWRYLXLX7586-48-43 15:40:00 Test Item Value Reference Range Interpretation Comments MCV (test code = MCV) 92.4 80.0-98.0 [place] 584733-04-13 15:40:00 Test Item Value Reference Range Interpretation Comments MCH (test code = MCH) 31.1 pg 27.0-31.0 [facility] CenterFaflsnpPRDNRNPIWB3995-05-75 15:40:00 Test Item Value Reference Range Interpretation Comments MCHC (test code = MCHC) 33.6 32.0-36.0 [facility] CenterAsatwmgYHGAPBXCXP3976-23-87 15:40:00 Test Item Value Reference Range Interpretation Comments RDW (test code = RDW) 13.2 11.5-14.5 [facility] CenterWrcyxjpETOEFDFLTB0345-90-24 15:40:00 Test Item Value Reference Range Interpretation Comments Platelet (test code = Platelet) 401 015-450 [facility]MorqobcUMMXDOFWUW4404-59-42 15:40:00 Test Item Value Reference Range Interpretation Comments MPV (test code = MPV) 7.7 7.4-10.4 [facility] CenterYxnljasAXGRFWLIBP9798-33-82 15:40:00 Test Item Value Reference Range Interpretation Comments PT (test code = PT) 13.0 s 12.0-14.7 [facility] CenterHyqchnkBJSHFWWBNU2970-22-74 15:40:00 Test Item Value Reference Range Interpretation Comments INR (test code = INR) 0.98 1 0.85-1.17 [facility] CampusMalfeumMGWRLENPGS2602-82-14 15:40:00 Test Item Value Reference Range Interpretation Comments PTT (test code = PTT) 27.1 s 22.9-35.8 [facility] CenterHurbkjuZHTNGIZENO7382-79-45 15:40:00 Test Item Value Reference Range Interpretation Comments Eosinophils # (test code 0.1 See_Comment [A utomated message] The = Eosinophils #) system whic h generated this result tra nsmitted reference range : <=0.5. The reference r marleen was not used to int erpret this result as normal/abnormal . [facility] CenterEzlmyngBGTJXQQCXW0481-41-46 15:40:00 Test Item Value Reference Range Interpretation Comments Basophils # (test code 0.1 See_Comment [Aut omated message] The = Basophils #) system which generated this result tra nsmitted reference range : <=0.2. The reference r marleen was not used to int erpret this result as normal/abnormal . [facility] CenterHzebqclVGWAABTDJC9398-44-01 15:40:00 Test Item Value Reference Range Interpretation Comments PT (test code = PT) 13.0 s 12.0-14.7 [facility] CenterKmlleqzWRCJLLKUCV3494-12-00 15:40:00 Test Item Value Reference Range Interpretation Comments INR (test code = INR) 0.98 1 0.85-1.17 [facility] CenterVeoeohvMNVSORVZLC5506-11-91 15:40:00 Test Item Value Reference Range Interpretation Comments PTT (test code = PTT) 27.1 s 22.9-35.8 [facility] CampusKbgvhulYSHXYXSGOK5471-32-82 15:40:00 Test Item Value Reference Range Interpretation Comments Coronavirus (COVID-19) Not Detected (02/10/23 KARLO (test code = 10:40 AM) Coronavirus (COVID-19) KARLO) [facility]qcsajkQIKZDHTZHB0869-42-32 15:40:00 Test Item Value Reference Range Interpretation Comments Coronavirus (COVID-19) Not Detected (02/10/23 KARLO (test code = 10:40 AM) Coronavirus (COVID-19) KARLO) [facility] AND ZQRKA2725-69-78 15:40:00 Test Item Value Reference Range Interpretation Comments UA Turbidity (test code = Clear (02/10/23 10:40 UA Turbidity) AM) [facility] AND SZKBL4725-82-38 15:40:00 Test Item Value Reference Range Interpretation Comments UA Spec Grav (test code = UA Spec 1.020 1 Grav) [facility] AND [id number] 15:40:00 Test Item Value Reference Range Interpretation Comments UA pH (test code = UA pH) 5.0 1 5.0-8.0 [facility] AND IKCVK0708-60-76 15:40:00 Test Item Value Reference Range Interpretation Comments UA Protein (test code = UA Negative mg/dL Protein) [facility] AND [id number] 15:40:00 Test Item Value Reference Range Interpretation Comments UA Glucose (test code = UA Negative mg/dL Glucose) [facility] AND [id number] 15:40:00 Test Item Value Reference Range Interpretation Comments UA Ketones (test code = UA Negative mg/dL Ketones) [facility] AND [id number] 15:40:00 Test Item Value Reference Range Interpretation Comments UA Bili (test code = Negative *NA*(02/10/23 UA Bili) 10:40 AM) [facility] AND UULXQ4854-90-95 15:40:00 Test Item Value Reference Range Interpretation Comments UA Blood (test code = Small *ABN*(02/10/23 UA Blood) 10:40 AM) [facility] AND [id number] 15:40:00 Test Item Value Reference Range Interpretation Comments UA Nitrite (test code Negative (02/10/23 10:40 = UA Nitrite) AM) [facility] AND [id number] 15:40:00 Test Item Value Reference Range Interpretation Comments UA Leuk Est (test Negative (02/10/23 10:40 code = UA Leuk Est) AM) [facility] AND [id number] 15:40:00 Test Item Value Reference Range Interpretation Comments UA Ascorbic Acid (test Negative 2*NA*(02/10/23 code = UA Ascorbic 10:40 AM) Acid) [facility] Сергей AND [id number] 15:40:00 Test Item Value Reference Range Interpretation Comments UA Sq Epi (test code = UA Sq Occasional /LPF Epi) [facility] [id number] 15:40:00 Test Item Value Reference Range Interpretation Comments UA WBC (test code = 2 See_Comment [Automa jessie message] The UA WBC) system which ge nerated this result transmit jessie reference range : <=5. The reference range was not used to interpr et this result as mary l/abnormal. [facility] Сергей AND [id number] 15:40:00 Test Item Value Reference Range Interpretation Comments UA RBC (test code = 3 See_Comment [Automa jessie message] The UA RBC) system which ge nerated this result transmit jessie reference range : <=2. The reference range was not used to interpr et this result as mary l/abnormal. [facility] Сергей AND [id number] 15:40:00 Test Item Value Reference Range Interpretation Comments UA Color (test code = UA Color) Ltyellow [facility] [id number] 15:40:00 Test Item Value Reference Range Interpretation Comments UA Urobilinogen (test code = UA <=1.0 mg/dL 0.1-1.0 Urobilinogen) [facility] [id number] 15:40:00 Test Item Value Reference Range Interpretation Comments UA Turbidity (test code = Clear (02/10/23 10:40 UA Turbidity) AM) [facility] AND [id number] 15:40:00 Test Item Value Reference Range Interpretation Comments UA Spec Grav (test code = UA Spec 1.020 1 Grav) [facility] AND [id number] 15:40:00 Test Item Value Reference Range Interpretation Comments UA pH (test code = UA pH) 5.0 1 5.0-8.0 [facility] AND [id number] 15:40:00 Test Item Value Reference Range Interpretation Comments UA Protein (test code = UA Negative mg/dL Protein) [facility] AND [id number] 15:40:00 Test Item Value Reference Range Interpretation Comments UA Glucose (test code = UA Negative mg/dL Glucose) [facility] AND [id number] 15:40:00 Test Item Value Reference Range Interpretation Comments UA Ketones (test code = UA Negative mg/dL Ketones) [facility] AND [id number] 15:40:00 Test Item Value Reference Range Interpretation Comments UA Bili (test code = Negative *NA*(02/10/23 UA Bili) 10:40 AM) [facility] AND [id number] 15:40:00 Test Item Value Reference Range Interpretation Comments UA Blood (test code = Small *ABN*(02/10/23 UA Blood) 10:40 AM) [facility] AND [id number] 15:40:00 Test Item Value Reference Range Interpretation Comments UA Nitrite (test code Negative (02/10/23 10:40 = UA Nitrite) AM) [facility] AND [id number] 15:40:00 Test Item Value Reference Range Interpretation Comments UA Leuk Est (test Negative (02/10/23 10:40 code = UA Leuk Est) AM) [facility] AND [id number] 15:40:00 Test Item Value Reference Range Interpretation Comments UA Ascorbic Acid (test Negative 2*NA*(02/10/23 code = UA Ascorbic 10:40 AM) Acid) [facility] AND [id number] 15:40:00 Test Item Value Reference Range Interpretation Comments UA Sq Epi (test code = UA Sq Occasional /LPF Epi) [facility] AND [id number] 15:40:00 Test Item Value Reference Range Interpretation Comments UA WBC (test code = 2 See_Comment [Automa jessie message] The UA WBC) system which ge nerated this result transmit jessie reference range : <=5. The reference range was not used to interpr et this result as mary l/abnormal. [facility] AND [id number] 15:40:00 Test Item Value Reference Range Interpretation Comments UA RBC (test code = 3 See_Comment [Automa jessie message] The UA RBC) system which ge nerated this result transmit jessie reference range : <=2. The reference range was not used to interpr et this result as mary l/abnormal. [facility] AND [id number] 15:40:00 Test Item Value Reference Range Interpretation Comments UA Color (test code = UA Color) Ltyellow [facility] AND [id number] 15:40:00 Test Item Value Reference Range Interpretation Comments UA Urobilinogen (test code = UA <=1.0 mg/dL 0.1-1.0 Urobilinogen) [facility] [id number] 15:40:00 Test Item Value Reference Range Interpretation Comments U Preg (test code = U Negative (02/10/23 10:40 Preg) AM) [facility]2023-04-13 15:40:00 Test Item Value Reference Range Interpretation Comments Glucose Lvl (test code = Glucose Lvl) 97 70-99 [facility]2023-04-13 15:40:00 Test Item Value Reference Range Interpretation Comments BUN (test code = BUN) 18 7-22 [facility]2023-04-13 15:40:00 Test Item Value Reference Range Interpretation Comments Creatinine Lvl (test code = Creatinine 0.60 0.50-1.40 Lvl) [facility]2023-04-13 15:40:00 Test Item Value Reference Range Interpretation Comments Sodium Lvl (test code = Sodium Lvl) 136 135-145 [facility]2023-04-13 15:40:00 Test Item Value Reference Range Interpretation Comments Potassium Lvl (test code = Potassium 3.6 3.5-5.1 Lvl) [facility]2023-04-13 15:40:00 Test Item Value Reference Range Interpretation Comments Chloride Lvl (test code = Chloride Lvl) 109 95-109 [facility]2023-04-13 15:40:00 Test Item Value Reference Range Interpretation Comments CO2 (test code = CO2) 24 24-32 [facility]2023-04-13 15:40:00 Test Item Value Reference Range Interpretation Comments Calcium Lvl (test code = Calcium Lvl) 9.4 8.5-10.5 [facility]2023-04-13 15:40:00 Test Item Value Reference Range Interpretation Comments Total Protein (test code = Total 7.6 6.4-8.4 Protein) [facility] [id number] 15:40:00 Test Item Value Reference Range Interpretation Comments Albumin Lvl (test code = Albumin Lvl) 3.7 3.5-5.0 [facility] [id number] 15:40:00 Test Item Value Reference Range Interpretation Comments ALT (test code = ALT) 46 See_Comment [Auto mated message] The system which ge nerated this result transmit jessie reference range : <=65. The reference range was not used to interpr et this result as mary l/abnormal. [facility] [employer] [id number] 15:40:00 Test Item Value Reference Range Interpretation Comments AST (test code = AST) 17 See_Comment [Auto mated message] The system which ge nerated this result transmit jessie reference range : <=37. The reference range was not used to interpr et this result as mary l/abnormal. [facility] [employer] [id number] 15:40:00 Test Item Value Reference Range Interpretation Comments Alk Phos (test code = Alk Phos) 77 39-136 [facility] [employer] [id number] 15:40:00 Test Item Value Reference Range Interpretation Comments Bili Total (test code = Bili Total) 0.3 0.2-1.3 [facility] [id number] 15:40:00 Test Item Value Reference Range Interpretation Comments AGAP (test code = AGAP) 6.6 10.0-20.0 [facility] [employer] [id number] 15:40:00 Test Item Value Reference Range Interpretation Comments B/C Ratio (test code = B/C Ratio) 30 1 6-25 [facility] [id number] 15:40:00 Test Item Value Reference Range Interpretation Comments Globulin (test code = Globulin) 3.9 2.7-4.2 [facility] [employer] [id number] 15:40:00 Test Item Value Reference Range Interpretation Comments A/G Ratio (test code = A/G Ratio) 0.9 1 0.7-1.6 [facility] [id number] 15:40:00 Test Item Value Reference Range Interpretation Comments eGFR (test code = eGFR) 125 [facility] [id number] 15:40:00 Test Item Value Reference Range Interpretation Comments Segs (test code = Segs) 62.0 45.0-75.0 [place] [address]-04-13 15:40:00 Test Item Value Reference Range Interpretation Comments Lymphocytes (test code = Lymphocytes) 28.3 20.0-40.0 [place] [address]-04-13 15:40:00 Test Item Value Reference Range Interpretation Comments Monocytes (test code = Monocytes) 6.9 2.0-12.0 [place] [address]-04-13 15:40:00 Test Item Value Reference Range Interpretation Comments Eosinophils (test code = 2.0 See_Comment [A utomated message] The Eosinophils) system which ge nerated this result tra nsmitted reference range : <=4.0. The reference r marleen was not used to int erpret this result as normal/abnormal . [place] [address]-04-13 15:40:00 Test Item Value Reference Range Interpretation Comments Lymphocytes # (test code = Lymphocytes 1.9 1.0-5.5 #) [place] [address]-04-13 15:40:00 Test Item Value Reference Range Interpretation Comments Monocytes # (test code 0.5 See_Comment [Aut omated message] The = Monocytes #) system which generated this result tra nsmitted reference range : <=0.8. The reference r marleen was not used to int erpret this result as normal/abnormal . [place] [address]-04-13 15:40:00 Test Item Value Reference Range Interpretation Comments Eosinophils # (test code 0.1 See_Comment [A utomated message] The = Eosinophils #) system whic h generated this result tra nsmitted reference range : <=0.5. The reference r marleen was not used to int erpret this result as normal/abnormal . [place] [address]-04-13 15:40:00 Test Item Value Reference Range Interpretation Comments Basophils # (test code 0.1 See_Comment [Aut omated message] The = Basophils #) system which generated this result tra nsmitted reference range : <=0.2. The reference r marleen was not used to int erpret this result as normal/abnormal . [place] [address]-04-13 15:40:00 Test Item Value Reference Range Interpretation Comments WBC (test code = WBC) 6.7 3.7-10.4 [id number] 15:40:00 Test Item Value Reference Range Interpretation Comments RBC (test code = RBC) 4.36 4.20-5.40 [facility] [id number] 15:40:00 Test Item Value Reference Range Interpretation Comments Hgb (test code = Hgb) 13.6 12.0-16.0 [facility] [id number] 15:40:00 Test Item Value Reference Range Interpretation Comments Hct (test code = Hct) 40.3 36.0-48.0 [facility] [id number] 15:40:00 Test Item Value Reference Range Interpretation Comments MCV (test code = MCV) 92.4 80.0-98.0 [facility] [id number] 15:40:00 Test Item Value Reference Range Interpretation Comments MCH (test code = MCH) 31.1 pg 27.0-31.0 [facility] C[id number] 15:40:00 Test Item Value Reference Range Interpretation Comments MCHC (test code = MCHC) 33.6 32.0-36.0 [facility] CenterQnujjepRQYQKEYMOE1129-27-65 15:40:00 Test Item Value Reference Range Interpretation Comments RDW (test code = RDW) 13.2 11.5-14.5 [facility] [id number] 15:40:00 Test Item Value Reference Range Interpretation Comments Platelet (test code = Platelet) 401 133-450 [facility] CenterMqzelklECYONPMWOF2163-07-80 15:40:00 Test Item Value Reference Range Interpretation Comments MPV (test code = MPV) 7.7 7.4-10.4 [facility] [id number] 15:40:00 Test Item Value Reference Range Interpretation Comments PT (test code = PT) 13.0 s 12.0-14.7 [facility] [id number] 15:40:00 Test Item Value Reference Range Interpretation Comments INR (test code = INR) 0.98 1 0.85-1.17 [facility] CenterYhicbmcXHPWNJDBYQ7036-19-13 15:40:00 Test Item Value Reference Range Interpretation Comments PTT (test code = PTT) 27.1 s 22.9-35.8 [facility] C[id number] 15:40:00 Test Item Value Reference Range Interpretation Comments Eosinophils # (test code 0.1 See_Comment [A utomated message] The = Eosinophils #) system whic h generated this result tra nsmitted reference range : <=0.5. The reference r marleen was not used to int erpret this result as normal/abnormal . [facility] C[id number] 15:40:00 Test Item Value Reference Range Interpretation Comments Basophils # (test code 0.1 See_Comment [Aut omated message] The = Basophils #) system which generated this result tra nsmitted reference range : <=0.2. The reference r marleen was not used to int erpret this result as normal/abnormal . [facility] Cent[id number] 15:40:00 Test Item Value Reference Range Interpretation Comments PT (test code = PT) 13.0 s 12.0-14.7 [facility] [id number] 15:40:00 Test Item Value Reference Range Interpretation Comments INR (test code = INR) 0.98 1 0.85-1.17 [facility] C[id number] 15:40:00 Test Item Value Reference Range Interpretation Comments PTT (test code = PTT) 27.1 s 22.9-35.8 [facility]EpmlksbBYXTQWSBNJ2397-47-99 15:40:00 Test Item Value Reference Range Interpretation Comments Coronavirus (COVID-19) Not Detected (02/10/23 KARLO (test code = 10:40 AM) Coronavirus (COVID-19) KARLO) [facility] Camp[id number] 15:40:00 Test Item Value Reference Range Interpretation Comments Coronavirus (COVID-19) Not Detected (02/10/23 KARLO (test code = 10:40 AM) Coronavirus (COVID-19) KARLO) [facility] AND [id number] 15:40:00 Test Item Value Reference Range Interpretation Comments UA Turbidity (test code = Clear (02/10/23 10:40 UA Turbidity) AM) [facility] AND [id number] 15:40:00 Test Item Value Reference Range Interpretation Comments UA Spec Grav (test code = UA Spec 1.020 1 Grav) [facility] AND [id number] 15:40:00 Test Item Value Reference Range Interpretation Comments UA pH (test code = UA pH) 5.0 1 5.0-8.0 [facility] AND [id number] 15:40:00 Test Item Value Reference Range Interpretation Comments UA Protein (test code = UA Negative mg/dL Protein) [facility] AND [id number] 15:40:00 Test Item Value Reference Range Interpretation Comments UA Glucose (test code = UA Negative mg/dL Glucose) [facility] AND [id number] 15:40:00 Test Item Value Reference Range Interpretation Comments UA Ketones (test code = UA Negative mg/dL Ketones) [facility] AND [id number] 15:40:00 Test Item Value Reference Range Interpretation Comments UA Bili (test code = Negative *NA*(02/10/23 UA Bili) 10:40 AM) [facility] AND [id number] 15:40:00 Test Item Value Reference Range Interpretation Comments UA Blood (test code = Small *ABN*(02/10/23 UA Blood) 10:40 AM) [facility] AND [id number] 15:40:00 Test Item Value Reference Range Interpretation Comments UA Nitrite (test code Negative (02/10/23 10:40 = UA Nitrite) AM) [facility] AND [id number] 15:40:00 Test Item Value Reference Range Interpretation Comments UA Leuk Est (test Negative (02/10/23 10:40 code = UA Leuk Est) AM) [facility] AND [id number] 15:40:00 Test Item Value Reference Range Interpretation Comments UA Ascorbic Acid (test Negative 2*NA*(02/10/23 code = UA Ascorbic 10:40 AM) Acid) [facility] AND [id number] 15:40:00 Test Item Value Reference Range Interpretation Comments UA Sq Epi (test code = UA Sq Occasional /LPF Epi) [facility] AND [id number] 15:40:00 Test Item Value Reference Range Interpretation Comments UA WBC (test code = 2 See_Comment [Automa jessie message] The UA WBC) system which ge nerated this result transmit jessie reference range : <=5. The reference range was not used to interpr et this result as mary l/abnormal. [facility] [id number] 15:40:00 Test Item Value Reference Range Interpretation Comments UA RBC (test code = 3 See_Comment [Automa jessie message] The UA RBC) system which ge nerated this result transmit jessie reference range : <=2. The reference range was not used to interpr et this result as mary l/abnormal. [facility] [id number] 15:40:00 Test Item Value Reference Range Interpretation Comments UA Color (test code = UA Color) Ltyellow [facility] AND [id number] 15:40:00 Test Item Value Reference Range Interpretation Comments UA Urobilinogen (test code = UA <=1.0 mg/dL 0.1-1.0 Urobilinogen) [facility] AND [id number] 15:40:00 Test Item Value Reference Range Interpretation Comments UA Turbidity (test code = Clear (02/10/23 10:40 UA Turbidity) AM) [facility] AND [id number] 15:40:00 Test Item Value Reference Range Interpretation Comments UA Spec Grav (test code = UA Spec 1.020 1 Grav) [facility] AND [id number] 15:40:00 Test Item Value Reference Range Interpretation Comments UA pH (test code = UA pH) 5.0 1 5.0-8.0 [facility] AND [id number] 15:40:00 Test Item Value Reference Range Interpretation Comments UA Protein (test code = UA Negative mg/dL Protein) [facility] AND [id number] 15:40:00 Test Item Value Reference Range Interpretation Comments UA Glucose (test code = UA Negative mg/dL Glucose) [facility] AND [id number] 15:40:00 Test Item Value Reference Range Interpretation Comments UA Ketones (test code = UA Negative mg/dL Ketones) [facility] AND [id number] 15:40:00 Test Item Value Reference Range Interpretation Comments UA Bili (test code = Negative *NA*(02/10/23 UA Bili) 10:40 AM) [facility] AND [id number] 15:40:00 Test Item Value Reference Range Interpretation Comments UA Blood (test code = Small *ABN*(02/10/23 UA Blood) 10:40 AM) [facility] [id number] 15:40:00 Test Item Value Reference Range Interpretation Comments UA Nitrite (test code Negative (02/10/23 10:40 = UA Nitrite) AM) [facility] [id number] 15:40:00 Test Item Value Reference Range Interpretation Comments UA Leuk Est (test Negative (02/10/23 10:40 code = UA Leuk Est) AM) [facility] [id number] 15:40:00 Test Item Value Reference Range Interpretation Comments UA Ascorbic Acid (test Negative 2*NA*(02/10/23 code = UA Ascorbic 10:40 AM) Acid) [facility] [id number] 15:40:00 Test Item Value Reference Range Interpretation Comments UA Sq Epi (test code = UA Sq Occasional /LPF Epi) [facility] [id number] 15:40:00 Test Item Value Reference Range Interpretation Comments UA WBC (test code = 2 See_Comment [Automa jessie message] The UA WBC) system which ge nerated this result transmit jessie reference range : <=5. The reference range was not used to interpr et this result as mary l/abnormal. [facility] AND [id number] 15:40:00 Test Item Value Reference Range Interpretation Comments UA RBC (test code = 3 See_Comment [Automa jessie message] The UA RBC) system which ge nerated this result transmit jessie reference range : <=2. The reference range was not used to interpr et this result as mary l/abnormal. [facility] [id number] 15:40:00 Test Item Value Reference Range Interpretation Comments UA Color (test code = UA Color) Ltyellow [facility] AND [id number] 15:40:00 Test Item Value Reference Range Interpretation Comments UA Urobilinogen (test code = UA <=1.0 mg/dL 0.1-1.0 Urobilinogen) [facility] [id number] 15:40:00 Test Item Value Reference Range Interpretation Comments U Preg (test code = U Negative (02/10/23 10:40 Preg) AM) [place] [address]-04-13 15:40:00 Test Item Value Reference Range Interpretation Comments Glucose Lvl (test code = Glucose Lvl) 97 70-99 [place] [address]-04-13 15:40:00 Test Item Value Reference Range Interpretation Comments BUN (test code = BUN) 18 7-22 [place] [address]-04-13 15:40:00 Test Item Value Reference Range Interpretation Comments Creatinine Lvl (test code = Creatinine 0.60 0.50-1.40 Lvl) [place] [address]-04-13 15:40:00 Test Item Value Reference Range Interpretation Comments Sodium Lvl (test code = Sodium Lvl) 136 135-145 [place] [address]-04-13 15:40:00 Test Item Value Reference Range Interpretation Comments Potassium Lvl (test code = Potassium 3.6 3.5-5.1 Lvl) [address]04-13 15:40:00 Test Item Value Reference Range Interpretation Comments Chloride Lvl (test code = Chloride Lvl) 109 95-109 [place] [address]-04-13 15:40:00 Test Item Value Reference Range Interpretation Comments CO2 (test code = CO2) 24 24-32 [place] [address]-04-13 15:40:00 Test Item Value Reference Range Interpretation Comments Calcium Lvl (test code = Calcium Lvl) 9.4 8.5-10.5 [place] [address]-04-13 15:40:00 Test Item Value Reference Range Interpretation Comments Total Protein (test code = Total 7.6 6.4-8.4 Protein) [place] [address]-04-13 15:40:00 Test Item Value Reference Range Interpretation Comments Albumin Lvl (test code = Albumin Lvl) 3.7 3.5-5.0 [place] [address]-04-13 15:40:00 Test Item Value Reference Range Interpretation Comments ALT (test code = ALT) 46 See_Comment [Auto mated message] The system which ge nerated this result transmit jessie reference range : <=65. The reference range was not used to interpr et this result as mary l/abnormal. [place] [address]-04-13 15:40:00 Test Item Value Reference Range Interpretation Comments AST (test code = AST) 17 See_Comment [Auto mated message] The system which ge nerated this result transmit jessie reference range : <=37. The reference range was not used to interpr et this result as amry l/abnormal. [facility] [id number] 15:40:00 Test Item Value Reference Range Interpretation Comments Alk Phos (test code = Alk Phos) 77 39-136 [facility] [id number] 15:40:00 Test Item Value Reference Range Interpretation Comments Bili Total (test code = Bili Total) 0.3 0.2-1.3 [place] [id number] 15:40:00 Test Item Value Reference Range Interpretation Comments AGAP (test code = AGAP) 6.6 10.0-20.0 [place] [id number] 15:40:00 Test Item Value Reference Range Interpretation Comments B/C Ratio (test code = B/C Ratio) 30 1 6-25 [facility] [id number] 15:40:00 Test Item Value Reference Range Interpretation Comments Globulin (test code = Globulin) 3.9 2.7-4.2 [facility] [id number] 15:40:00 Test Item Value Reference Range Interpretation Comments A/G Ratio (test code = A/G Ratio) 0.9 1 0.7-1.6 [place] [address]-04-13 15:40:00 Test Item Value Reference Range Interpretation Comments eGFR (test code = eGFR) 125 [facility] [id number] 15:40:00 Test Item Value Reference Range Interpretation Comments Segs (test code = Segs) 62.0 45.0-75.0 [place] [address]-04-13 15:40:00 Test Item Value Reference Range Interpretation Comments Lymphocytes (test code = Lymphocytes) 28.3 20.0-40.0 [place] [address]-04-13 15:40:00 Test Item Value Reference Range Interpretation Comments Monocytes (test code = Monocytes) 6.9 2.0-12.0 [facility]WsofmoaPLAPDBVJDO8694-10-73 15:40:00 Test Item Value Reference Range Interpretation Comments Eosinophils (test code = 2.0 See_Comment [A utomated message] The Eosinophils) system which ge nerated this result tra nsmitted reference range : <=4.0. The reference r marleen was not used to int erpret this result as normal/abnormal . [facility]ZdtdomkLNGQETFKEH8634-60-69 15:40:00 Test Item Value Reference Range Interpretation Comments Basophils (test code = 0.8 See_Comment [Aut omated message] The Basophils) system which ge nerated this result tra nsmitted reference range : <=1.0. The reference r marleen was not used to int erpret this result as normal/abnormal . [facility] CenterZpyoeazOYDCTUUPFQ0025-98-80 15:40:00 Test Item Value Reference Range Interpretation Comments Neutrophils # (test code = Neutrophils 4.2 1.5-8.1 #) [facility]EtzcgqePEJCQHXYV6395-25-87 20:51:00 Test Item Value Reference Range Interpretation Comments Glucose Lvl (test code = Glucose Lvl) 118 70-99 [facility]wallWudpuygVYZALAUEZ1095-71-15 20:51:00 Test Item Value Reference Range Interpretation Comments BUN (test code = BUN) 15 7-22 [facility]wallFhgrsnpWQOZTMVEK8369-15-55 20:51:00 Test Item Value Reference Range Interpretation Comments Creatinine Lvl (test code = Creatinine 0.66 0.50-1.40 Lvl) [facility]wallZsvbbmjMWLHISSNB0666-29-31 20:51:00 Test Item Value Reference Range Interpretation Comments Sodium Lvl (test code = Sodium Lvl) 139 135-145 [facility]wallXyorjxyQMHHNUSXY3197-88-40 20:51:00 Test Item Value Reference Range Interpretation Comments Potassium Lvl (test code = Potassium 3.8 3.5-5.1 Lvl) [facility]wallPmfzgldVTHOCGOPW4899-50-27 20:51:00 Test Item Value Reference Range Interpretation Comments Chloride Lvl (test code = Chloride Lvl) 106 95-109 [facility]wallInjkbzcSKVGNAFPL7033-14-60 20:51:00 Test Item Value Reference Range Interpretation Comments CO2 (test code = CO2) 26 24-32 [facility]wallMnkkaguMHMXMDVXM5269-39-39 20:51:00 Test Item Value Reference Range Interpretation Comments Calcium Lvl (test code = Calcium Lvl) 8.9 8.5-10.5 [facility]wallNcudpcdCKAEIZWAG1609-53-03 20:51:00 Test Item Value Reference Range Interpretation Comments AGAP (test code = AGAP) 10.8 10.0-20.0 [place] 205193-01-17 20:51:00 Test Item Value Reference Range Interpretation Comments eGFR (test code = eGFR) 122 [place] 205193-01-17 20:51:00 Test Item Value Reference Range Interpretation Comments S Preg (test code = S Negative *NA*(11/16/22 Preg) 2:51 PM) [place] 584733-01-17 20:51:00 Test Item Value Reference Range Interpretation Comments Segs (test code = Segs) 62.0 45.0-75.0 [place] 584733-01-17 20:51:00 Test Item Value Reference Range Interpretation Comments Lymphocytes (test code = Lymphocytes) 27.6 20.0-40.0 [place] 584733-01-17 20:51:00 Test Item Value Reference Range Interpretation Comments Monocytes (test code = Monocytes) 7.5 2.0-12.0 [place] 584733-01-17 20:51:00 Test Item Value Reference Range Interpretation Comments Eosinophils (test code = 1.9 See_Comment [A utomated message] The Eosinophils) system which ge nerated this result tra nsmitted reference range : <=4.0. The reference r marleen was not used to int erpret this result as normal/abnormal . [place] 584733-01-17 20:51:00 Test Item Value Reference Range Interpretation Comments Basophils (test code = 1.0 See_Comment [Aut omated message] The Basophils) system which ge nerated this result tra nsmitted reference range : <=1.0. The reference r marleen was not used to int erpret this result as normal/abnormal . [facility] CenterMoqvwrtPSEJFJPYDV8871-43-78 20:51:00 Test Item Value Reference Range Interpretation Comments Neutrophils # (test code = Neutrophils 4.6 1.5-8.1 #) [place] 584733-01-17 20:51:00 Test Item Value Reference Range Interpretation Comments Lymphocytes # (test code = Lymphocytes 2.1 1.0-5.5 #) [place] 584733-01-17 20:51:00 Test Item Value Reference Range Interpretation Comments Monocytes # (test code 0.6 See_Comment [Aut omated message] The = Monocytes #) system which generated this result tra nsmitted reference range : <=0.8. The reference r marleen was not used to int erpret this result as normal/abnormal . [facility] CampusOlkfpikTRGBHNEPXX6827-86-00 20:51:00 Test Item Value Reference Range Interpretation Comments Eosinophils # (test code 0.1 See_Comment [A utomated message] The = Eosinophils #) system whic h generated this result tra nsmitted reference range : <=0.5. The reference r marleen was not used to int erpret this result as normal/abnormal . [facility] CampusWgzpdufYGKYSHILRV5430-50-16 20:51:00 Test Item Value Reference Range Interpretation Comments Basophils # (test code 0.1 See_Comment [Aut omated message] The = Basophils #) system which generated this result tra nsmitted reference range : <=0.2. The reference r marleen was not used to int erpret this result as normal/abnormal . [facility] CenterZvtrwcoZNIACURVRG9447-93-21 20:51:00 Test Item Value Reference Range Interpretation Comments WBC (test code = WBC) 7.5 3.7-10.4 [facility] CenterOqsknwvWGBYBCJYPV4270-87-82 20:51:00 Test Item Value Reference Range Interpretation Comments RBC (test code = RBC) 4.24 4.20-5.40 [facility] CenterBpswvayGTVTAUKRHW4443-15-14 20:51:00 Test Item Value Reference Range Interpretation Comments Hgb (test code = Hgb) 13.4 12.0-16.0 [facility] CenterErscqkiVMSSUBNJNG6553-49-32 20:51:00 Test Item Value Reference Range Interpretation Comments Hct (test code = Hct) 39.8 36.0-48.0 [facility] CenterYxsmugqBSWCOMFUSM7831-61-69 20:51:00 Test Item Value Reference Range Interpretation Comments MCV (test code = MCV) 93.9 80.0-98.0 [facility] CenterNvghzltHGXYAGGTEH4693-87-75 20:51:00 Test Item Value Reference Range Interpretation Comments MCH (test code = MCH) 31.6 pg 27.0-31.0 [place] 584733-01-17 20:51:00 Test Item Value Reference Range Interpretation Comments MCHC (test code = MCHC) 33.7 32.0-36.0 [facility] CenterXyhimvyUDSOJQDXOU5437-27-42 20:51:00 Test Item Value Reference Range Interpretation Comments RDW (test code = RDW) 13.1 11.5-14.5 [facility] CenterFkkknysXXLXMMUWLB0962-37-59 20:51:00 Test Item Value Reference Range Interpretation Comments Platelet (test code = Platelet) 374 133-450 [place] 584733-01-17 20:51:00 Test Item Value Reference Range Interpretation Comments MPV (test code = MPV) 7.9 7.4-10.4 [facility]wallPlyncajZRLDZACFF3921-94-82 20:51:00 Test Item Value Reference Range Interpretation Comments Glucose Lvl (test code = Glucose Lvl) 118 70-99 [place] 205193-01-17 20:51:00 Test Item Value Reference Range Interpretation Comments BUN (test code = BUN) 15 7-22 [place] 205193-01-17 20:51:00 Test Item Value Reference Range Interpretation Comments Creatinine Lvl (test code = Creatinine 0.66 0.50-1.40 Lvl) [facility]wallVoekquxTPAOLTKAT4159-57-94 20:51:00 Test Item Value Reference Range Interpretation Comments Sodium Lvl (test code = Sodium Lvl) 139 135-145 [facility]wallDqvnyhuHJFKTUBAO2172-78-04 20:51:00 Test Item Value Reference Range Interpretation Comments Potassium Lvl (test code = Potassium 3.8 3.5-5.1 Lvl) [facility]wallCdkfpyrJEOHHKBYY8889-99-16 20:51:00 Test Item Value Reference Range Interpretation Comments Chloride Lvl (test code = Chloride Lvl) 106 95-109 [facility]wallReuqbvbQZZGLQUMB7212-73-75 20:51:00 Test Item Value Reference Range Interpretation Comments CO2 (test code = CO2) 26 24-32 [facility] RockwallNahupdpWKAHEUIEI1047-89-21 20:51:00 Test Item Value Reference Range Interpretation Comments Calcium Lvl (test code = Calcium Lvl) 8.9 8.5-10.5 [facility]wallNxumilkCUVEOUDSH0145-46-18 20:51:00 Test Item Value Reference Range Interpretation Comments AGAP (test code = AGAP) 10.8 10.0-20.0 [facility] RockwallQansznnJTOAHFDUI9201-89-13 20:51:00 Test Item Value Reference Range Interpretation Comments eGFR (test code = eGFR) 122 [place] 205193-01-17 20:51:00 Test Item Value Reference Range Interpretation Comments S Preg (test code = S Negative *NA*(11/16/22 Preg) 2:51 PM) [place] 584733-01-17 20:51:00 Test Item Value Reference Range Interpretation Comments Segs (test code = Segs) 62.0 45.0-75.0 [place] 584733-01-17 20:51:00 Test Item Value Reference Range Interpretation Comments Lymphocytes (test code = Lymphocytes) 27.6 20.0-40.0 [place] 584733-01-17 20:51:00 Test Item Value Reference Range Interpretation Comments Monocytes (test code = Monocytes) 7.5 2.0-12.0 [place] 584733-01-17 20:51:00 Test Item Value Reference Range Interpretation Comments Eosinophils (test code = 1.9 See_Comment [A utomated message] The Eosinophils) system which ge nerated this result tra nsmitted reference range : <=4.0. The reference r marleen was not used to int erpret this result as normal/abnormal . [facility] CenterYyirpfrUOANSFGQVR9252-02-85 20:51:00 Test Item Value Reference Range Interpretation Comments Basophils (test code = 1.0 See_Comment [Aut omated message] The Basophils) system which ge nerated this result tra nsmitted reference range : <=1.0. The reference r marleen was not used to int erpret this result as normal/abnormal . [facility] CenterVyyrpmvGKFMADYFWC8021-41-97 20:51:00 Test Item Value Reference Range Interpretation Comments Neutrophils # (test code = Neutrophils 4.6 1.5-8.1 #) [place] 584733-01-17 20:51:00 Test Item Value Reference Range Interpretation Comments Lymphocytes # (test code = Lymphocytes 2.1 1.0-5.5 #) [place] [address]-01-17 20:51:00 Test Item Value Reference Range Interpretation Comments Monocytes # (test code 0.6 See_Comment [Aut omated message] The = Monocytes #) system which generated this result tra nsmitted reference range : <=0.8. The reference r marleen was not used to int erpret this result as normal/abnormal . [place] [address]-01-17 20:51:00 Test Item Value Reference Range Interpretation Comments Eosinophils # (test code 0.1 See_Comment [A utomated message] The = Eosinophils #) system whic h generated this result tra nsmitted reference range : <=0.5. The reference r marleen was not used to int erpret this result as normal/abnormal . [facility] CenterPdavilhASZKHJLZHR2817-45-57 20:51:00 Test Item Value Reference Range Interpretation Comments Basophils # (test code 0.1 See_Comment [Aut omated message] The = Basophils #) system which generated this result tra nsmitted reference range : <=0.2. The reference r marleen was not used to int erpret this result as normal/abnormal . [facility] CenterQbjtbeuEYKRFFPMRW1538-83-46 20:51:00 Test Item Value Reference Range Interpretation Comments WBC (test code = WBC) 7.5 3.7-10.4 [place] 584733-01-17 20:51:00 Test Item Value Reference Range Interpretation Comments RBC (test code = RBC) 4.24 4.20-5.40 [facility] CenterUkhwaniKGMTLSVKGL9789-15-75 20:51:00 Test Item Value Reference Range Interpretation Comments Hgb (test code = Hgb) 13.4 12.0-16.0 [facility] CenterAklfnvnXOIVBYJVXI9836-19-84 20:51:00 Test Item Value Reference Range Interpretation Comments Hct (test code = Hct) 39.8 36.0-48.0 [facility] CenterXhlxyajGXENVDDVSR1177-06-12 20:51:00 Test Item Value Reference Range Interpretation Comments MCV (test code = MCV) 93.9 80.0-98.0 [facility] CenterBeiglloTOJAMCBFUB6005-27-84 20:51:00 Test Item Value Reference Range Interpretation Comments MCH (test code = MCH) 31.6 pg 27.0-31.0 [place] 584733-01-17 20:51:00 Test Item Value Reference Range Interpretation Comments MCHC (test code = MCHC) 33.7 32.0-36.0 [place] 584733-01-17 20:51:00 Test Item Value Reference Range Interpretation Comments RDW (test code = RDW) 13.1 11.5-14.5 [facility] CenterVndvkrnZLCFIILNXX5093-93-20 20:51:00 Test Item Value Reference Range Interpretation Comments Platelet (test code = Platelet) 374 133-450 [facility] CampusIhxrhxaWECGOZSOSV3936-60-38 20:51:00 Test Item Value Reference Range Interpretation Comments MPV (test code = MPV) 7.9 7.4-10.4 [facility] RFLX MICR CULT IF [id number] 19:59:00 Test Item Value Reference Range Interpretation [...] DIPSTICK (test code = 2+ NEG A SHARON) UA PH DIPSTICK (test code = 6.0 [...] for culture: Dysuria/FrequencySpecimen Description: CLEAN CATCHUR HCG [id number] 19:59:00 Test Item Value Reference Range Interpretation [...] culture: Dysuria/FrequencySpecimen Description: CLEAN CATCHDRUGS OF ABUSE [id number] 19:56:00 Test Item Value Reference Range Interpretation Comments UR COCAINE (test code = NEGATIVE NEGATIVE DETE CTION CUT OFF: COCAU) 150 ng/mL UR CANNABINOIDS (test NEGATIVE NEGATIVE DETECT ION CUT OFF: 50 code = CANU) ng/mL UR AMPHETAMINE (test POSITIVE NEGATIVE A RESULTS CALLED TO code = AMPHU) MIROSLAVA JESSA EAD BACK & CONFIRME D? YBY F.LAB.RV [...] code = PHENCU) ng/mL - CT ANGIO [id number] 11:16:00 [facility] : 1995 Sex: F Patient Name: ABNER NOYOLA Unit No: [id number] EXAMS: CPT CODE: [id number] CT ANGIO CHEST 38[address] CT SCAN OF THE CHEST WITH CONTRAST [...] of fluid overload. Mildly prominent heart. [facility] NAME: ABNER NOYOLA Radiology Department PHYS: Kervin Rodríguez [address] : 1995 AGE: 25 SEX: F [place], [place] [address] LOC: SANDRA PHONE #: [phone] EXAM DATE: 09/29/2020 STATUS: REG ER FAX #: [phone] RAD NO: Page 1 Signed Report 1 Patient Name: ABNER NOYOLA Unit No: [id number] EXAMS: CPT CODE: [id number] CT ANGIO CHEST 37957 (Continued) at 1116 Reported and signed by: Stella Diaz MD CC: Kervin Rosa MD;Jeremaih Fenton Technologist: Fernandez Chatman, RT, CT CTDI: 17.86 DLP: 558.03 Trnscrbd D/ (1116) tLIZZETTE [facility] NAME: ABNER NOYOLA Radiology Department PHYS: Kervin Rodríguez [address] : 1995 AGE: 25 SEX: F [place], [place] [address] LOC: Joaquín.ERS PHONE #: [phone] EXAM DATE: 09/29/2020 STATUS: REG ER FAX #: [phone] RAD NO: Page 2 Signed Report 1 Patient Name: ABNER NOYOLA Unit No: [id number] EXAMS: CPT CODE: [id number] CT ANGIO CHEST 91657 (Continued) Orig Print D/T: S: 09/29/2020 (1119) [facility] NAME: ABNER NOYOLA Radiology Department PHYS: LEANNE Danielle Kervin Rosa [address] : 1995 AGE: 25 SEX: F [place], [place] [address] LOC: FranERS PHONE #: [phone] EXAM DATE: 09/29/2020 STATUS: REG ER FAX #: [phone] RAD NO: Page 3 Signed Report 1D- DIMER [id number] 10:05:00 Test Item Value Reference Range Interpretation [...] for rulingout DVT. - XR CHEST 1 [id number] 10:03:[address] [facility] [address] [facility] : 1995 Sex: F Patient Name: ABNER NOYOLA Unit No: [id number] EXAMS: CPT CODE: [id number] XR CHEST 1 V 43304 Clinical Indication: Shortness of breath after section [...] Low lung volumes. No consolidative pneumonia. SL: [id number] at 1003 Reported and signed by: Tyler Lewis MD CC: Kervin Rosa MD; Jeremiah Fenton Technologist: Angely Koroma RT, CT Trnscrbd D/ (1003) t.[id number] Orig Print D/T: S: 09/29/2020 (1006) [facility] NAME: ABNER NOYOLA Radiology Department PHYS: Kervin Rodríguez [address] : 1995 AGE: 25 SEX: F [place], [place] [address] LOC: SANDRA PHONE #: [phone] EXAM DATE: 09/29/2020 STATUS: REG ER FAX #: [phone] RAD NO: Page 1 Signed ReportB-TYPE NATRIURETIC [id number] 09:48:00 Test Item Value Reference Range Interpretation Comments B-TYPE NATRIURETIC PEPTIDE (test 383.61 pg/mL 0-100 H code = BNP) DRUGS OF ABUSE [id number] 09:43:00 Test Item Value Reference Range Interpretation [...] = PHENCU) 25 ng/m L COMPREHENSIVE METABOLIC [id number] 09:42:00 Test Item Value Reference Range Interpretation Comments SODIUM (test code = 143 mEq/L 135-145 N NA) POTASSIUM (test code 2.7 mEq/L 3.5-5.0 LL RESULTS VERIFIED BY = K) REPEAT ANALYSIS RESULTS CALLED TO ELVIN GUZMANREAD BACK & CONFIRME D? YES.BY FMALU B1 09/29/20 0925. CHLORIDE (test code 105 [...] 46-116 N TOTAL (test code = ALKP) [id number] 09:42:00 Test Item Value Reference Range Interpretation Comments TROPONIN-I (test code = TROPI) 0.053 ng/mL <0.056 N COMPREHENSIVE METABOLIC [id number] 09:25:00 Test Item Value Reference Range Interpretation Comments SODIUM (test code = 143 mEq/L 135-145 N NA) POTASSIUM (test code 2.7 mEq/L 3.5-5.0 LL RESULTS VERIFIED BY = K) REPEAT ANALYSIS RESULTS CALLED TO ELVIN GUZMANREAD BACK & CONFIRME D? YES.BY FLibbyLAB.EL B1 09/29/20924. CHLORIDE (test code 105 mEq/L [...] units/L 46-116 TOTAL (test code = ALKP) [id number] 09:25:00 Test Item Value Reference Range Interpretation Comments TROPONIN-I (test code = TROPI) 0.053 ng/mL <0.056 N UA RFLX MICR CULT IF [id number] 09:21:00 Test Item Value Reference Range Interpretation [...] DIPSTICK (test code = 1+ NEG A SHARON) UA PH DIPSTICK (test code = 7.0 [...] culture: Suprapubic PainSpecimen Description: CLEAN CATCHCBC W/AUTO [id number] 09:08:00 Test Item Value Reference Range Interpretation [...] REQUIRED (test NORMAL NORMAL code = PLTMR) [id number] 06:36:00 Test Item Value Reference Range Interpretation Comments GLUBED (test code = GLUBED) 82 mg/dL 65-110 N HGB [id number] 04:50:00 Test Item Value Reference Range Interpretation Comments HEMOGLOBIN (test code = HGB) 8.1 g/dL 10.7-13.9 L HEMATOCRIT (test code = HCT) 25.2 % 32.1-42.1 L [id number] 04:43:00 Test Item Value Reference Range Interpretation Comments GLUBED (test code = GLUBED) 98 mg/dL 65-110 N [id number] 12:00:00 Test Item Value Reference Range Interpretation Comments GLUCOSE (test code = GLU) 81 mg/dL 65-110 N AG HEPATITIS B [id number] 14:40:00 Test Item Value Reference Range Interpretation Comments AG HEPATITIS B SURFACE (test code NONREACTIVE NONREACTIVE = HBSAG) : *IS CONSENT FORM SIGNED FOR HIV TESTING? YAB HEPATITIS C [id number] 14:40:00 Test Item Value Reference Range Interpretation Comments AB HEPATITIS C (test code = NONREACTIVE NONREACTIVE HCVAB) SIGNAL TO CUTOFF (test code = 0.07 <0.80 N CUTOFF) : *IS CONSENT FORM SIGNED FOR HIV TESTING? YAB [id number] 14:40:00 Test Item Value Reference Range Interpretation Comments AB TREPONEMA (test code = TREPAB) NONREACTIVE NONREACTIVE : *IS CONSENT FORM SIGNED FOR HIV TESTING? YAB HIV 1 14:40:00 Test Item Value Reference Range Interpretation Comments AB HIV 1 2 (test NONREACTIVE NONREACTIVE Done by [facility] [employer]aur code = [id number]) 4th Gen HIV Ag/Ab Combo Screen : [...] or approved; th e test hasbeen authori sade by FDA under an Emerge ncy Use [...] of Accreditation. This test is only authori zecolleen for the duration of thedeclaration that circumstances e xist justifying theauthorizatio n of emergency use o f in vitro diagnostic test sfor detection and/o r diagnosis of CO VID-19 under Eblmnyn30 4(b)(1) of the Act, 21 U.S .C. 360bbb-3(b)(1), unless theauthorizatio n is terminated or r evoked sooner. CBC W/AUTO [id number] 13:26:00 Test Item Value Reference Range Interpretation [...] code = PLTMR) POCT URINALYSIS W SPECIFIC [id number] 15:52:00 Test Item Value Reference Range Interpretation Comments POCT U SP GRAV (test code = 3255) . 1.005-1.025 POCT PH U (test code = 3253) . 5-8 POCT U LEUK EST (test [...] POCT U APPEAR (test code = 3267) [facility] URINALYSIS W SPECIFIC [id number] 15:52:00 Test Item Value Reference Range Interpretation [...] POCT U APPEAR (test code = 3267) [facility] URINALYSIS W SPECIFIC [id number] 15:52:00 Test Item Value Reference Range Interpretation [...] POCT U APPEAR (test code = 3267) [facility] URINALYSIS W SPECIFIC [id number] 15:50:00 Test Item Value Reference Range Interpretation [...] POCT U APPEAR (test code = 3267) [facility] URINALYSIS W SPECIFIC [id number] 15:50:00 Test Item Value Reference Range Interpretation [...] POCT U APPEAR (test code = 3267) [facility] URINALYSIS W SPECIFIC [id number] 15:50:00 Test Item Value Reference Range Interpretation [...] POCT U APPEAR (test code = 3267) [facility] URINALYSIS W SPECIFIC [id number] 18:13:00 Test Item Value Reference Range Interpretation [...] 3267) Lab Interpretation (test code = Abnormal 30139-7) [facility] URINALYSIS W SPECIFIC [id number] 21:14:00 Test Item Value Reference Range Interpretation [...] POCT U APPEAR (test code = 3267) [facility] [place] [facility]PR[facility] WORK[facility], BLOOD [id number] 07:50:47 Test Item Value Reference Range Interpretation Comments ABO & RH (test code O POSITIVE Performe d at [facility] = 20) Laboratory Serv [facility] s [address]Jwfl Free: [phone] A No. [id number] IAT (test code = Negative Performed a t [facility] 1185) Laboratory Serv [facility] s [address]Xomy Free: [phone] A No. [id number] [facility] [place] [facility] CampusHIV [facility]/2 AG-AB WITH [id number] 06:35:00 Test Item Value Reference Range Interpretation Comments HIV Negative Negative Semi-quantitative (test code = 49974-3) TERRELL (test code = Non-reactive for HIV-1 TERRELL) antigen and HIV-1/HIV-2 antibodies. ?No laboratory evidence of HIV infection. ?Repeat in 2-4 weeks if acute HIV infection is suspected. [facility] [place] [facility] CampusHEPATITIS B SURFACE [id number] 05:34:00 Test Item Value Reference Range Interpretation Comments HBsAg Semi-Quantitative (test code = Negative Negative 5195-3) [facility] [place] [facility] CampusGLUCOSE 1 HOUR POST [id number] 05:05:00 Test Item Value Reference Range Interpretation Comments GLUC 1 HR (test code = 3390366466) 98 mg/dL 120-170 L Lab Interpretation (test code = Abnormal 26157-0) [facility] WITH [id number] 04:35:00 Test Item Value Reference Range Interpretation [...] RDW-SD (test code = 43.6 fL 39-49.9 98713-2) RDW-CV (test code = 12.1 % 12-15.5 788-0) PLT (test code = See_Comment [Automated 777-3) message] The sy stem which generated this result transmitted reference range : 166 - 358 10*3/ ?L. The reference r marleen was not used to interpret this result as normal/abnormal . MPV (test code = 9.9 fL 9.5-12.9 90961-3) NRBC/100 WBC (test See_Comment [Automat ed code = 8177222854) message] The system which generated this result transmitted reference range : 0.0 - 10.0 /100 WBCs. The refer ence range was not u sed to interpret th is result as normal/abnormal . NRBC x10^3 (test code <0.01 See_Comment [Auto mated = [id number]) message] The s ystem which generated this result transmitted reference range : 10*3/?L. The reference range was not used to interpret this result as normal/abnormal . GRAN MAT (NEUT) % 68.9 % (test code = 770-8) IMM GRAN % (test code 0.10 % = 9991393470) LYMPH % (test code = 19.7 % 736-9) MONO % (test code = 8.6 % 5905-5) EOS % (test code = 1.8 % 713-8) BASO % (test code = 0.9 % 706-2) GRAN MAT x10^3(ANC) 4.62 10*3/uL 1.88-7.09 (test code = 8135732157) IMM GRAN x10^3 (test <0.03 0-0.06 code = 1369291160) LYMPH x10^3 (test code 1.32 10*3/uL 1.32-3.29 = 731-0) MONO x10^3 (test code 0.58 10*3/uL 0.33-0.92 = 742-7) EOS x10^3 (test code = 0.12 10*3/uL 0.03-0.39 711-2) BASO x10^3 (test code 0.06 10*3/uL 0.01-0.07 = 704-7) Lab Interpretation Abnormal (test code = 93555-2) [facility] URINALYSIS W SPECIFIC [id number] 15:34:00 Test Item Value Reference Range Interpretation [...] POCT U APPEAR (test code = 3267) [facility] [id number] 15:34:00 Test Item Value Reference Range Interpretation Comments POCT PREG (test code = 1605) Positive On board controls acceptable with C Yes Line (test code = 3574) POCT PREG LOT # (test code = 3575) POCT PREG TEST DATE (test code = 357) [facility] URINALYSIS W SPECIFIC [id number] 15:34:00 Test Item Value Reference Range Interpretation [...] POCT U APPEAR (test code = 3267) [facility] [id number] 15:34:00 Test Item Value Reference Range Interpretation Comments POCT PREG (test code = 1605) Positive On board controls acceptable with C Yes Line (test code = 3574) POCT PREG LOT # (test code = 3575) POCT PREG TEST DATE (test code = 3576) [facility] URINALYSIS W SPECIFIC [id number] 15:34:00 Test Item Value Reference Range Interpretation [...] POCT U APPEAR (test code = 3267) [facility] [id number] 15:34:00 Test Item Value Reference Range Interpretation Comments POCT PREG (test code = 1605) Positive On board controls acceptable with C Yes Line (test code = 3574) POCT PREG LOT # (test code = 3575) POCT PREG TEST DATE (test code = 3576) [facility] Notes Date/Time Note Provider Source 2022-01-15 18:20:00-00:00 [facility] EMERGENCY PROVIDER REPORT REPORT#:[id number] REPORT STATUS: Signed DATE:01/15/22 TIME: 1819 PATIENT: ABNER NOYOLA UNIT #: [id number] ROOM/BED: AGE: 26 SEX: F PCP PHYS: Jeremiah Fenton MD SERVICE AUTHOR: Humberto Rosen MD * ALL edits or amendments must be made on the el Qlib[employer]/computer document * HPI-General Illness Free Text HPI Notes Free Text HPI Notes 26 yrs old female requesting medication change f rom cipro to something else because she had reaction to it. Pt did not want further work. General Confirmed Patient Yes Patient Type New patient Initial Greet Date/Time 01/15/22 1724 Presentation Chief Complaint medication change for uti due to allergic reaction. Review of Systems ROS Statements All systems rev neg except as marked. Complete sys rev neg except as marked. 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 TROY Allergies Coded Allergies: No Known Allergies (01/15/22) Home Medications Reported Medications AMPHETAMINE/DEXTROAMPHETAMINE SALTS (ADDERALL) 6 0 MG PO BID CIPROFLOXACIN (CIPRO) 500 MG PO BID Review of Nursing Notes Rev avail, and agree Smoking status: Smoking status for patients 13 years old or old er: Never Smoker Physical Exam Vital Signs Vital Signs First Documented: Result Date Time Pulse Ox 96 01/15 1730 B/P 121/76 01/15 1730 B/P Mean 91 01/150 O2 Delivery Room air 01/15 1730 Temp 36.9 01/15 1730 Pulse 97 01/15 1730 Resp 18 01/15 1730 Last Documented: Result Date Time Pulse Ox 96 01/15 1730 B/P 121/76 01/15 1730 B/P Mean 91 01/15 1730 O2 Delivery Room air 01/15 1730 Temp 36.9 01/15 1730 Pulse 97 01/15 1730 Resp 18 01/15 1730 Review of Vital Signs Reviewed Physical Exam General/Const General/Const Awake, Alert, Well appearing MS Head Head Normocephalic Ears/Nose/Throat Ears/Nose/Throat Airway patent, Mucous membrane s moist, Pharynx NL Resp/Chest Respiratory/Chest Breath sounds NL, Breath soun ds = bilat, No respiratory distress, No rales, No rhonchi, No wheezing Cardiovascular Cardiovascular Heart rate NL, Regular r hythm, Heart sounds NL, Cap refill not delayed, Peripheral circulation NL Abdomen/GI Abdomen/GI Soft, Non-tender, No guarding, No re bound Lymphatic Lymphatic No gross adenopathy MS Upper Extrem Upper Extremity/MS Inspection NL, No swelling, Non-tender, No erythema, No deformity, Neurologic intact, Vascular intact, N o clubbing/cyanosis MS Lower Extrem Lower Ext/Pelvis/MS Inspection NL, No swelling, Non-tender, No erythema, No deformity, Neurologic intact, Vascular intact, N o edema Skin Skin Color NL, Warm, Dry, Turgor NL Neurologic Neurologic Oriented X3, Speech NL, No motor def icits, No sensory deficits Psychiatric Psychiatric Affect NL, Mood NL, Thought content NL Interpretation Diagnostics Lab Results Interpretation Results Laboratory Tests: 01/15 1745 Toxicology Urine Opiates Screen (NEGATIVE) NEGATIVE Ur Barbiturates, Qual (NEGATIVE) NEGATIVE Ur Phencyclidine Scrn (NEGATIVE) NEGATIVE Ur Amphetamines Screen (NEGATIVE) POSITIVE U Benzodiazepines Scrn (NEGATIVE) NEGATIVE Urine Cocaine Screen (NEGATIVE) NEGATIVE Urine Cannabinoids (NEGATIVE) NEGATIVE Urines Urine Color (YELLOW) YELLOW Urine Appearance (CLEAR) CLEAR Urine pH (5 - 9) 6.0 Ur Specific [place] (1.001 - 1.035) 1.025 Urine Protein (NEG) NEGATIVE Urine Glucose (UA) (NEG) NEGATIVE Urine Ketones (NEG) NEGATIVE Urine Blood (NEG) 2+ H Urine Nitrite (NEG) NEG Urine Bilirubin (NEG) NEGATIVE Urine Urobilinogen (NEG mg/dL) NEGATIVE Ur Leukocyte Esterase (NEG) NEG Urine RBC (NONE SEEN #/hpf) 3-5 H Urine WBC (NONE SEEN #/hpf) 0-2 Ur Epithelial Cells (RARE - FEW #/HPF) RARE Urine Mucus (NONE SEEN) RARE Urine HCG, Qual NEGATIVE Re-Evaluation MDM Free Text MDM Notes Free Text MDM Notes 26 yrs old female requesting medication change f rom cipro to something else because she had reaction to it. Pt did not want further work. Macrobid, pyridium, moting givne. Patient Discharge Departure Vital Signs/Condition Vital Signs First Documented: Result Date Time Pulse Ox 96 01/15 1730 B/P 121/76 / 1730 B/P Mean 91 / 1730 O2 Delivery Room air 01/15 1730 Temp 36.9 18 1730 Pulse 97 03/18 1730 Resp 18 03 1730 Last Documented: Result Date Time Pulse Ox 96 01/15 1730 B/P 121/76 03/18 1730 B/P Mean 91 / 1730 O2 Delivery Room air / 1730 Temp 36.9 /18 1730 Pulse 97 03/ 1730 Resp 18 01/15 1730 All vital signs available at the time of this en try have been reviewed. Condition Stable, Improved Clinical Impression Clinical Impression Primary Impression: Dysuria Secondary Impressions: UTI (urinary tract infect ion) Time of Impression 1819 Disposition Decision Discharge )( Discharged to Home Yes )( Time 1819 )( Date 01/15/22 Discharge/Care Plan Counseled Regarding Diagnosi s, Lab results, Imaging studies, Prescriptions, Need for follow-up, When to return to ED Rx Drug Database Reviewed Yes (Auto) Prescriptions Current Visit Scripts PHENAZOPYRIDINE (PYRIDIUM) 100 MG PO Q8H PRN PRN DYSURIA PHENAZOPYRIDINE (PYRIDIUM) 100 MG PO Q8H PRN RI N DYSURIA #6 TABS TAKE AFTER MEALS. ONDANSETRON ODT (ZOFRAN ODT) 4 MG PO Q6H PRN PRN NAUSEA/VOMITING ONDANSETRON ODT (ZOFRAN ODT) 4 MG PO Q6H PRN RI N NAUSEA/VOMITING #15 TABS NITROFURANTOIN/NITROFURAN MAC (MACROBID) 100 MG PO BID NITROFURANTOIN/NITROFURAN MAC (MACROBID) 100 MG PO BID #14 CAPS Until finished. Take with food. IBUPROFEN (ADVIL) 400 MG PO Q4H PRN PRN PAIN/FEV ER IBUPROFEN (ADVIL) 400 MG PO Q4H PRN PRN PAIN/FE ABRAHAM #30 TABS Prescriptions Reviewed Risks, Benefits, Alternat bipin treatment Patient Instructions ED Dysuria, Uncertain Cause (Adult), Urinary Tract Infections in Women Referrals Provider Referral: Veto Dean MD Address: [address] [address] Departure Forms WORK/SCHOOL EXCUSE VARIABLE WORK/SCHOOL EXCUSE-CAREGIVER Advance Care Planning Documents Reviewed With patient Discharge Note I have spoken with the patie nt and/or caregivers. I have explained the patient's condition, diagnoses and niya atment plan based on the information available to me at this time. I have answered the patient's and/ or caregiver's questions and addressed any concerns. The patient and/or careg sky have as good an understanding of the patient 's diagnosis, condition and treatment plan as can be expected at this point. The vital signs have bee n stable. The patient's condition is stable and appr opriate for discharge from the emergency department. The patient will pursue further outpatient evalu ation with the primary care physician or other designated or consulting phys [facility] as outlined in the discharge instructions. The patient and/or caregivers are agreeable to this plan of care and follow-up instructions have been exp lained in detail. The patient and/or caregivers have received these instructio ns in written format and have expressed an understanding of the discharge inst ructions. The patient and/or caregivers are aware that any significant change in condition or worsening of symptoms should prompt an immediate return to [facility] or the closest emergency department or a call to 911. Quality Measures BP F/U for HTN F/u with PCP/other doc US in Preg w/AP/VB Trans-abd/vag US done RH- Risk Fet Bld Exposure No risk blood ex pos Preg Test for Women w/Abd Pain Female age 14-50 Smoking Cessation Screened, non user Tobacco Screening/Cessation 18 years or older, D enies tobacco use at [address] [facility] #:[id number] END OF REPORT 2020-11-03 16:04:00-00:00 [id number] [facility] [address], [place] [address] PATIENT NAME: ABNER NOYOLA ADMIT DATE: ACCOUNT NO: [id number] ROOM NO: .1999 AGE: 25 SEX: F ADMITTING PHYSICIAN: Jeremiah Fenton MD ATTENDING PHYSICIAN: Jeremiah Fenton MD ADMISSION DATE: 09/23/2020 DISCHARGE DATE: 09/25/2020 ADMISSION DIAGNOSES: 1. A 38-week . 2. Previous section. PROCEDURE PERFORMED: Repeat low transverse panchito burke delivery. DISCHARGE MEDICATIONS: Include [place], Motrin, an d multivitamin. DISPOSITION: The patient discharged home in good condition. SUMMARY OF HOSPITAL COURSE: The patient presente d at 38 weeks' gestation for scheduled repeat a s previously dictated. Postoperatively, the patient did well. She remained afebr ile with stable vital signs throughout her hospital course. She had good pain control and tolerated regular diet. Blood sugars were checked and were within normal range. By po stoperative day #2, she was meeting all postoperative goals and was discharg ed home in good condition. DISCHARGE INSTRUCTIONS: Woun d care instructions were discussed with the patient and family. She was scheduled for followup in [facility] office in 2 weeks for incision check. Dictated By: Jeremiah Fenton MD WT: DS:F.BOONE/JOE/NTS Conf#: [id number]/DID#: [id number] Authenticated by Jeremiah Fenton MD On 2020 08:14:15 AM Electronically Signed by Jeremiah Fenton MD o n 11/05/20 at 0814 PATIENT NAME: ABNER NOYOLA [id number] 2020-11-03 16:02:00-00:00 [id number] [facility] [place] [address] [place], [place] [address] PATIENT NAME: ABNER NOYOLA ADMIT DATE: ACCOUNT NO: [id number] ROOM NO: F.1999 AGE: 25 SEX: F ADMITTING PHYSICIAN: Jeremiah Fenton MD ATTENDING PHYSICIAN: Jeremiah Fenton MD OPERATION DATE: 09/23/2020 PROCEDURE PERFORMED: Repeat low transverse panchito burke delivery. PREOPERATIVE DIAGNOSES: 1. A 38-week . 2. Gestational diabetes. 3. Previous section. POSTOPERATIVE DIAGNOSES: 1. A 38-week . 2. Gestational diabetes. 3. Previous section. ESTIMATED BLOOD LOSS: 700 mL. OPERATIVE FINDINGS: 1. Normal-appearing uterus, ovaries, and tubes. 2. Cephalic female infant, A pgars 7 and 8, weight 9 pounds 2 ounces, to nursery. 3. Hemostatic. 4. All counts correct. ANESTHESIA: Combined spinal epidural. COMPLICATIONS: None. PATHOLOGY: None. SURGEON: Jeremiah Fenton MD HANDLE SEWER: Iraj Giordano MD STATEMENT OF MEDICAL NECESSITY: The patient pres ented at 38 weeks' gestation for a scheduled repeat for gestational diabetes and a history of previous . Risks, benefits, alternative s, and indications were discussed with the patient and family and they a greed to plan. STATEMENT OF PROCEDURE: After informed consent w as obtained, the patient was taken to the operating room. Adequate spinal epi dural anesthesia was established. She was prepped and draped in usual sterile fashion. Transverse skin incision made through the previous C-sectio n scar. This was carried down to the fascia. Fascia was scored in midline. Fas cial incision was extended PATIENT NAME: ABNER NOYOLA [id number] bilaterally. Muscles dissect ed off back of the fascia and in midline. Peritoneal cavity was bluntly entered. Bladder flap was created at the level of the previous bladder flap. A low transverse h ysterotomy was made. This was bluntly extended bilaterally. Membranes were sharon ntly ruptured, clear fluid returned. head was brought to the hysterot melissa. With fundal pressure, head and body were delivered. Mouth and na res were bulb suctioned. Cord was doubly clamped and cut and fetus passed off for evaluation. Placenta was delivered with fundal massage. Uterus was exteri orized, wrapped in moist laparotomy sponge and curettaged with dry laparo nilda sponge. Hysterotomy was closed with #1 chromic suture in running-locked fashion. It was irrigated and rendered hemostatic. A secondary layer closure p erformed with 2-0 Monocryl in imbricating fashion. This too was irrigated and rendered hemostatic. Uterus returned to abdominal cavity. Gutters copiously irrigated and suctioned dry. Hysterotomy was again inspected and remained hem ostatic. Peritoneum was reapproximated with 2-0 search planner елена suture. Muscles reapproximated with 2-0 chromic suture. Fascia was closed with 0 Vicryl from eit her side and tied in the midline. Subcutaneous tissue was copious ly irrigated and suctioned dry. It was reapproximated with plain gu t suture. Skin was closed with 3-0 Monocryl running subcuticular stitch. Wound was dressed with Mast isol, Steri-Strips, and occlusive bandage. Blood and clot were evacuated from the uterus and vagina. The patient was taken to recovery room in good c ondition. There were no operative or anesthetic complications. Dictated By: Jeremiah Fenton MD WT: OP:F.HIM/SHEGR/NTS Conf#: [id number]/DID#: [id number] Authenticated by Jeremiah Fenton MD On 2020 08:14:16 AM Electronically Signed by Jeremiah Fenton MD o n 11/05/20 at 0814 PATIENT NAME: ABNER NOYOLA [id number] 2020-09-29 09:55:00-00:00 [facility] EMERGENCY PROVIDER REPORT REPORT#:[id number] REPORT STATUS: Signed DATE:09/29/20 TIME: 954 PATIENT: ABNER NOYOLA UNIT #: [id number] ROOM/BED: AGE: 25 SEX: F PCP PHYS: Jeremiah Fenton MD SERVICE AUTHOR: Angel Rosa MD * ALL edits or amendments must be made on the [employer]/computer document * HPI-General Illness General Initial Greet Date/Time 09/29/20 0831 Presentation Chief Complaint sob Context Additional Context 25 years old patient no past medical history pre sents 5 days status post C- section complaining of sever al days of increasing shortness of breath especially when lying flat, denies cough, fever, abdominal pain, vomiting, leg swelling, headaches, blurry vision or any other complaints , Review of Systems ROS Statements All systems rev neg except as marked. Free Text ROS Notes Free Text ROS Notes CONSTITUTIONAL: Normal; negative for fev er, weight change, fatigue, or aching. HEENT: Eyes normal; negative for, irritation, or visual field defects. Ears normal; Negative for pain . Nose normal; Negative for runny nose, sinus problems , or nosebleeds. Mouth normal; Negative for dent al problems,. Throat normal; Negative for hoarseness, difficulty swallowing, or sore throat. SKIN: Normal; Negative for rashes. MUSCULOSKELETAL: Normal; Negative for back pain, joint pain. NEUROLOGIC: Normal; Negative for blackouts, head aches, seizures or dizziness. ENDOCRINE: Normal; Negative for diabetes, thyroid.HEMATOLOGIC/LYMPHATIC: Normal; Negative for anemia, swollen glands, or blood di sorders. IMMUNOLOGIC: Negative; Negative for steroids, ch emotherapy, or cancer. VASCULAR: Normal; Negative for varicose veins, b lood clots, or leg ulcers. Past Medical History - Adult Stated Complaint 5 D S/P C-S W/CHEST PAIN,SOB Allergies Coded Allergies: No Known Allergies (09/29/20) Home Medications Active Scripts IBUPROFEN (MOTRIN) 600 MG PO Q6H IBUPROFEN (MOTRIN) 600 MG PO Q6H #60 TABS Ref 1 Prov: 09/25/20 DOCUSATE SODIUM (COLACE) 200 MG PO DAILY DOCUSATE SODIUM (COLACE) 200 MG PO DAILY #60 CA PS Prov: 09/25/20 Discontinued Scripts HYDROcodone/APAP (NORCO 5/325) 1 TAB PO Q4H PRN PRN severe pain HYDROcodone/APAP (NORCO 5/325) 1 TAB PO Q4H PRN PRN severe pain #20 TABS Prov: 09/25/20 DC: 09/29/20 0847 Therapy completed Reported Medications PNV WITH CA/IRON/FA/DHA (PRENATE ESSENTIAL) 1 CA P PO DAILY Review of Nursing Notes Rev avail, and agree Physical Exam Vital Signs Vital Signs First Documented: Result Date Time Pulse Ox 100 09/29 841 B/P 149/86 09/29 841 B/P Mean 107 09/29 841 O2 Delivery Room air 09/29 841 Temp 36.6 09/29 841 Pulse 86 09/29 841 Resp 16 09/29 841 Last Documented: Result Date Time Pulse Ox 100 09/29 1212 B/P 148/96 09/29 1212 B/P Mean 113 09/29 1212 Temp 36.7 09/29 1212 Pulse 77 09/29 1212 Resp 18 09/29 1212 O2 Delivery Room air 09/29 841 Review of Vital Signs Reviewed, Vital signs norm al Physical Exam MS Neck Neck Atraumatic, No meningismus, Full range of motion, No adenopathy Resp/Chest Respiratory/Chest Atraumatic, Breath so unds = bilat, No respiratory distress, No rhonchi, No wheezing Cardiovascular Cardiovascular Regular rhythm, Heart sounds NL, No gallop, No rubs Abdomen/GI Abdomen/GI Soft, McBurney's non-tender, No guar ding, No rebound MS Back Back Atraumatic, Full range of motion, Painless range of motion, Non-tender, No paraspinal tenderness Lymphatic Lymphatic No gross adenopathy, No axill jimena adenopathy, No inguinal adenopathy MS Upper Extrem Upper Extremity/MS Atraumatic, Full ran ge of motion, No swelling, Non-tender, No snuffbox tenderness MS Wrist/Hand Wrist/Hand Inspection NL, Full range of motion, No swelling, Non-tender MS Lower Extrem Lower Ext/Pelvis/MS Atraumatic, Full ra nge of motion, No swelling, Non-tender , No erythema MS Ankle/Foot Ankle/Foot Atraumatic, Full range of motion, No erythema, Non-tender Skin Skin Color NL, No rash, Dry, Intact Genitourinary General Credit Balance Specialist present, Exam deferred, Caret quynh refused exam Rectum Rectum/Perineum Atraumatic, No gross blood, No discharge, No fecal impaction Interpretation Diagnostics Lab Results Interpretation Results Laboratory Tests 09/29/20 0839: [Embedded Image Not Available] Laboratory Tests: 09/29 09/29 09/29 0852 0839 0839 Chemistry Sodium (135 - 145 mEq/L) 143 Potassium (3.5 - 5.0 mEq/L) 2.7 *L Chloride (100 - 115 mEq/L) 105 Carbon Dioxide (22 - 31 mEq/L) 27 Anion Gap (10 - 20) 13.30 BUN (7 - 18 mg/dL) 11 Creatinine (0.5 - 1.0 mg/dL) 0.7 Glomerular Filtr Rate (>60 ml/min) 100 Glucose (65 - 110 mg/dL) 104 Calcium (8.4 - 10.2 mg/dL) 8.5 Total Bilirubin (0.2 - 1.0 mg/dL) 0.2 AST (15 - 37 units/L) 21 ALT (12 - 78 units/L) 23 Total Alk Phosphatase (46 - 116 units/L) 94 Troponin I (<0.056 ng/mL) 0.053 B-Natriuretic Peptide (0 - 100 pg/mL) 383.61 H Total Protein (6.3 - 8.2 gm/dL) 6.5 Albumin (3.4 - 4.8 gm/dL) 2.5 L Coagulation D-Dimer (<255 ng/mLDDU) 853 H Hematology WBC (6.6 - 12.1 K/mm3) 7.2 RBC (3.45 - 5.01 M/mm3) 2.84 L Hgb (10.7 - 13.9 g/dL) 8.9 L Hct (32.1 - 42.1 %) 28.0 L MCV (84.1 - 94.8 fL) 99 H MCH (27 - 35 pg) 31.3 MCHC (32.2 - 34.1 gm/dL) 31.8 L RDW (12.4 - 16.5 %) 13.4 Plt Count (133 - 385 K/mm3) 365 MPV (9.1 - 12.7 fl) 9.0 L Neut % (Auto) (56.5 - 79.4 %) 71.6 Lymph % (Auto) (14.3 - 34.3 %) 18.7 [place] % (Auto) (5.1 - 10.4 %) 5.4 Eos % (Auto) (0.1 - 3.0 %) 2.2 Baso % (Auto) (0.1 - 1.0 %) 0.4 Neut # (Auto) (K/mm3) 5.2 Lymph # (Auto) (K/mm3) 1.4 [place] # (Auto) (K/mm3) 0.4 Eos # (Auto) (K/mm3) 0.16 Baso # (Auto) (K/mm3) 0.0 Toxicology Urine Opiates Screen (NEGATIVE) NEGATIVE Ur Barbiturates, Qual (NEGATIVE) NEGATIVE Ur Phencyclidine Scrn (NEGATIVE) NEGATIVE Ur Amphetamines Screen (NEGATIVE) NEGATIVE U Benzodiazepines Scrn (NEGATIVE) NEGATIVE Urine Cocaine Screen (NEGATIVE) NEGATIVE Urine Cannabinoids (NEGATIVE) NEGATIVE Urines Urine Color (YELLOW) STRAW Urine Appearance (CLEAR) CLEAR Urine pH (5 - 9) 7.0 Ur Specific [place] (1.001 - 1.035) 1.005 Urine Protein (NEG) NEGATIVE Urine Glucose (UA) (NEG) NEGATIVE Urine Ketones (NEG) NEGATIVE Urine Blood (NEG) 1+ H Urine Nitrite (NEG) NEG Urine Bilirubin (NEG) NEGATIVE Urine Urobilinogen (NEG mg/dL) NEGATIVE Ur Leukocyte Esterase (NEG) NEG Urine RBC (NONE SEEN #/hpf) 0-2 Urine WBC (NONE SEEN #/hpf) 0-2 Ur Epithelial Cells (RARE - FEW #/HPF) RARE Urine Bacteria (RARE - FEW /HPF) RARE Urine Mucus (NONE SEEN) RARE Recent Impressions: RADIOLOGY - XR CHEST 1 V 09/29 0925 Report Impression - Status: SIGNED Entered: 09/29/2020 1006 IMPRESSION: Low lung volumes. No consolidative pneumonia. SL: [id number] Impression By: Maryann - Tyler Lewis MD CAT SCAN - CT ANGIO CHEST 09/29 1028 Report Impression - Status: SIGNED Entered: 09/29/2020 1119 IMPRESSION: No pulmonary emboli identified. Prominent pulmonary vasculature and pleural effu sions are suggestive of fluid overload. Mildly prominent heart. Impression By: Jocelyne Diaz MD Re-Evaluation MDM ED Course Medication(s) Ordered Medication(s) Ordered: Diagnostic Agents Sig/Juan Antonio Start time Last Medication Dose Route Stop Time Status Admin Iopamidol 100 ML .STK-MED ONE 09/29 1052 DC IV 09/29 1053 1052 Electrolytic, Caloric, And Floridalma Sig/Juan Antonio Start time Last Medication Dose Route Stop Time Status Admin Potassium Chloride 40 MEQ X1ED STA 09/29 1137 A C PO 09/29 1138 Sodium Chloride 50 ML .STK-MED ONE 09/29 1053 D C 09/29 IV 09/29 1054 1053 Sodium Chloride 50 ML .STK-MED ONE 09/29 1052 D C 09/29 IV 09/29 1053 1052 Patient Discharge Departure Vital Signs/Condition Vital Signs First Documented: Result Date Time Pulse Ox 100 09/29 0841 B/P 149/86 09/29 0841 B/P Mean 107 09/29 0841 O2 Delivery Room air 09/29 0841 Temp 36.6 09/29 0841 Pulse 86 09/29 0841 Resp 16 09/29 0841 Last Documented: Result Date Time Pulse Ox 100 09/29 1212 B/P 148/96 09/29 1212 B/P Mean 113 09/29 1212 Temp 36.7 09/29 1212 Pulse 77 09/29 1212 Resp 18 09/29 1212 O2 Delivery Room air 09/29 0841 All vital signs available at the time of this en try have been reviewed. Condition Stable, Improved Clinical Impression Clinical Impression Primary Impression: Pleural effusion Time of Impression 1135 Disposition Decision Discharge )( Discharged to Home Yes )( Time 1135 )( Date 09/29/20 Discharge/Care Plan (Auto) Prescriptions Current Visit Scripts FUROSEMIDE (LASIX) 20 MG PO BID FUROSEMIDE (LASIX) 20 MG PO BID #14 TABS POTASSIUM CHLORIDE ER (KLOR-CON 10) 10 MEQ PO DA FLAVIO POTASSIUM CHLORIDE ER (KLOR-CON 10) 10 MEQ PO D AILY #14 TABS Patient Instructions ED Effusion Pleural, ED Pot assium Deficiency at 0659 RPT #:[id number] END OF REPORT 2020-09-29 08:48:00-00:00 [id number] [facility] [address], [place] [address] PATIENT NAME: ABNER NOYOLA ADMIT DATE: ACCOUNT NO: [id number] ROOM NO: AGE: 25 SEX: F ADMITTING PHYSICIAN: ATTENDING PHYSICIAN: Kervin Rosa MD Order: [id number] Test Reason : CHEST PAIN Test Date/Time Stamp: TueSep 29 2020 08:48:33 Blood Pressure : / mmHG Vent. Rate : 083 BPM Atrial Rate : 083 BPM P-R Int : 176 ms QRS Dur : 088 ms QT Int : 388 ms P-R-T Axes : 059 046 062 degre es QTc Int : 455 ms Normal sinus rhythm Possible Left atrial enlargement Borderline ECG No previous ECGs available Confirmed by EBONY HERNDON MD ([id number]) on 09/30/20 11:58:30 AM Referred By: Self Referred Confirmed by:EBONY ARZATE MD at 1158 PATIENT NAME: ABNER NOYOLA [id number] 1154-11-26 12:17:00-00:00 [facility] HOSPITAL ([facility]) OB Postpart Progr Note REPORT#:[id number] REPORT STATUS: Signed DATE:09/25/20 TIME: 1217 PATIENT: ABNER NOYOLA UNIT #: [id number] ROOM/BED: 2001 : 93 AGE: 25 SEX: F ATTEND: Leah Fenton MD ADM AUTHOR: Kalli Kimble MD * ALL edits or amendments must be made on the Smart Wire Grid/computer document * Subjective Subjective Admission EGA: Weeks: 39 Days: 0 EGA at delivery (wks/days): 39 weeks (0d) Status/day: post operative (d2 s/p ERCS) Patient reports: Patient reports: Yes: normal lochia, pain management effective, tolerating po well, voiding well, voiding without pain, tolerating ambulatio n, flatus. No: complaints, nausea, vomiting, excessive bleeding, abdominal pain. Objective Nursing Documentation Review Nursing data: The data set between the solid lines has been im ported from nursing documentation. Any exceptions have been noted be low under Provider comments. Feeding preference: Provider comments on imported nursing data: [] General VS: Vital Signs Date Temp Pulse Resp B/P B/P Mean Pulse Ox FiO2 09/24-09/25 97.5-98.4 86-94 18 116-135/79-86 91 .6-102.8 99 Last Documented: Result Date Time B/P 116/79 09/25 0838 Temp 97.8 09/25 0838 Pulse 86 09/25 0838 Resp 18 09/25 0838 B/P Mean 91.6 09/25 0820 Pulse Ox 99 09/24 1650 Patient Weight Weight (lb): 232 Weight (oz): Weight (kg): 105.233 Physical Exam Breasts: Breasts: filling Lungs: unlabored breathing Neuro: Exam: alert, oriented x3 Abdomen: soft, no abnormal tenderness, no guardi ng, no rebound tenderness Incision site: well approximated edges, dressing clean dry, dry, no drainage, no inflammation Uterus: involution appropriate Fundus: firm, below the umbilicus Lochia: normal Lacerations: Perineal laceration(s): None Lower extremities: Edema: 1+ pitting Calf tenderness: negative Result Findings/data: Laboratory Tests Test Result Date Time Chemistry Glucose (65 - 110 mg/dL) 81 09/23 1100 POC Glucose (65 - 110 mg/dL) 82 09/25 0623 Hematology WBC (6.6 - 12.1 K/mm3) 7.1 09/19 1042 RBC (3.45 - 5.01 M/mm3) 3.27 L 09/19 1042 Hgb (10.7 - 13.9 g/dL) 8.1 L 09/24 0400 Hct (32.1 - 42.1 %) 25.2 L 09/24 0400 MCV (84.1 - 94.8 fL) 96 H 09/19 1042 MCH (27 - 35 pg) 30.6 09/19 1042 MCHC (32.2 - 34.1 gm/dL) 31.9 L 09/19 1042 RDW (12.4 - 16.5 %) 13.2 09/19 1042 Plt Count (133 - 385 K/mm3) 324 09/19 1042 MPV (9.1 - 12.7 fl) 10.1 09/19 1042 Neut % (Auto) (56.5 - 79.4 %) 77.5 09/19 1042 Lymph % (Auto) (14.3 - 34.3 %) 14.9 09/19 104 [place] % (Auto) (5.1 - 10.4 %) 6.1 09/19 104 Eos % (Auto) (0.1 - 3.0 %) 0.8 09/19 104 Baso % (Auto) (0.1 - 1.0 %) 0.3 09/19 104 Neut # (Auto) (K/mm3) 5.5 09/19 104 Lymph # (Auto) (K/mm3) 1.1 09/19 104 [place] # (Auto) (K/mm3) 0.4 09/19 104 Eos # (Auto) (K/mm3) 0.06 09/19 104 Baso # (Auto) (K/mm3) 0.0 09/19 1042 Serology Treponema pallidum Ab (NONREACTIVE) NONREACTIVE 09/19 1042 Hep Bs Antigen (NONREACTIVE) NONREACTIVE 09/19 1042 Hepatitis C Antibody (NONREACTIVE) NONREACTIVE 09/19 1042 Hep C Ab Signal/Cutoff (<0.80) 0.07 09/19 1042 HIV 1 2 Antibody (NONREACTIVE) NONREACTIVE 09/01 0 1041 SARS-CoV-2 Ag (Rapid) (NEGATIVE) NEGATIVE 09/19 1050 Laboratory Tests: 09/25 0623 Chemistry POC Glucose (65 - 110 mg/dL) 82 Results: labs reviewed, vital signs stable Diagnosis, Assessment Plan Diagnosis, Assessment Plan Assessment: nml progress, GDM- diet c ontrolled Plan: routine care, discharge today Plan discussed with: patient, spouse/partner at 1219 RPT #:[id number] END OF REPORT 2020-09-24 08:27:00-00:00 [facility] ([facility]) OB Postpart Progr Note REPORT#:[id number] REPORT STATUS: Signed DATE:09/24/20 TIME: 826 PATIENT: ABNER NOYOLA UNIT #: [id number] ROOM/BED: 2001 : 93 AGE: 25 SEX: F ATTEND: Leah Fenton MD ADM AUTHOR: Jeremiah Fenton MD * ALL edits or amendments must be made on the el [employer]lib[employer]/computer document * Subjective Subjective Admission EGA: Weeks: 39 Days: 0 Status/Day: post , post operative (d1) Patient reports: Patient reports: Yes no complaints, Yes pain management effectiv e, Yes tolerating po well Objective Nursing Documentation Review Nursing Data: The data set between the solid lines has been im ported from nursing documentation. Any exceptions have been noted be low under Provider comments. Feeding preference: Provider comments on imported nursing data: [] General VS: Vital Signs: Date Time Temp Pulse Resp B/P B/P Pulse O2 O2 F low FiO2 Mean Ox Delivery Rate 09/24 422 97.9 98 20 109/72 09/23 1956 99.2 116 20 143/77 09/23 1615 98.8 59 131/63 09/23 1545 111 29 98 09/23 1530 93.0 09/23 1530 109 9 145/65 98 09/23 1515 91.0 09/23 1515 119 47 141/57 96 09/23 1500 100.0 09/23 1500 100 21 136/75 97 09/23 1445 92.0 09/23 1445 106 21 140/64 97 09/23 1430 88.0 09/23 1430 111 29 125/66 97 09/23 1416 86.0 09/23 1416 125/73 09/23 1415 107 98 09/23 1400 101.0 09/23 1400 107 144/90 98 09/23 1345 89.0 09/23 1345 109 19 120/69 98 09/23 1334 93.0 09/23 1334 127/73 09/23 1330 94.0 09/23 1330 112 28 130/71 100 09/23 1319 94.0 09/23 1319 130/71 09/23 1032 107.0 09/23 1032 98.3 90 139/90 Patient Weight Weight (lb): 232 Weight (oz): Weight (kg): 105.233 Physical Exam Neuro: Exam: alert, oriented x3 Abdomen: soft, no abnormal tenderness, no guardi ng Incision site: well approximated edges, dry, no drainage, no inflammation Uterus: firm, non-tender Result Findings/Data: Laboratory Tests: 09/24 09/24 09/23 0425 0400 1100 Chemistry Glucose (65 - 110 mg/dL) 81 POC Glucose (65 - 110 mg/dL) 98 Hematology Hgb (10.7 - 13.9 g/dL) 8.1 L Hct (32.1 - 42.1 %) 25.2 L Diagnosis, Assessment Plan Diagnosis, Assessment Plan Assessment: nml progress Plan: routine care, discharge tomorro w at 0827 RPT #:[id number] END OF REPORT 2020-09-23 13:21:00-00:00 [facility] ([facility]) OB Delivery Note REPORT#:[id number] REPORT STATUS: Signed DATE:09/23/20 TIME: 1321 PATIENT: ABNER NOYOLA UNIT #: [id number] [facility] AGE: 25 SEX: F ATTEND: Leah Fenton MD ADM AUTHOR: Jeremiah Fenton MD * ALL edits or amendments must be made on the el ectronic/computer document * OB Delivery Nursing Documentation Review Nursing data: The data set between the solid lines has been im ported from nursing documentation. Any exceptions have been noted be low under Provider comments. _ ROM date: ROM time: Membranes rupture method: Amniotic fluid color: Amniotic fluid amount: Steroids prior to arrival: Antibiotic prophylaxis given: Yes evaluation at delivery: Delivery date A: Delivery time A: Birthweight (gm) A: Weight (lb) infant A: Weight (oz) infant A: Gender infant A: 1 minute A: 5 minutes infant A: 10 minutes A: Cord pH obtained infant A: Vacuum time infant A: Vacuum # pulls infant A: Vacuum # popoffs A: QBL at delivery: __ Provider comments on imported nursing data: [] Infant B (add'l data): The data set between the solid lines has been im ported from nursing documentation. Any exceptions have been noted be low under Provider comments. ___ Delivery date B: Delivery time B: Birthweight (gm) B: Weight (lb) infant B: Weight (oz) B: Gender B: 1 minute B: 5 minutes infant B: 10 minutes infant B: Cord pH obtained B: Vacuum time infant B: Vacuum # pulls B: Vacuum # popoffs infant B: ____ Provider comments on imported nursing data: [] Pre-delivery GBS status: GBS status: positive Prophylaxis administered: cephazolin evaluation at delivery: NRP certified pe rsonnel Admission EGA: Weeks: 39 Days: 0 Baby A Information Baby A information Delivery date: 09/23/20 Delivery time: 1247 status: live born Wt of baby (lbs/oz): 07/02 Gender: female 1 minute: 7 5 minutes: 8 Presentation: vertex Nuchal cord Baby A Nuchal cord: yes (loose and reduced) Delivery section indication: elective repeat Priority: scheduled, elective repeat : : contraindicated Antibiotic prior to incision: 1 dose )(SCDs applied activated: Yes Uterine incision: low transverse Uterine scar: intact Consent: indication discussed, questions answer ed, pt consent to op delivery Mother's condition: mother stable Infant's condition: infant stable in nursery Op/Inv Proc Note - Brief )( Procedure(s) performed: repeat low transverse c/s )( Primary Surgeon: Edward Fenton )( Power Hair Clipper(s): Solitario Giordano )( Pre-procedure diagnosis: 38 wks, GDM, prev C/S )( Post-procedure diagnosis: same )( Technique/Procedure: LTCS Anesthesia: combined spinal/epidural )( Estimated blood loss (ml): 700 )( Specimen removed/altered: none )( Complications: none )( Finding(s): nl ut/ov/tubes. hemostatic. counts correct. Blood Loss/Details Blood loss at delivery: <1000 ml, no more than e xpected Management: uterotonic agent(s) EBL at delivery (ml's): 700 at 1326 RPT #:[id number] END OF REPORT 2020-09-23 11:34:00-00:00 [facility] ([facility]) OB Admission / H P REPORT#:[id number] REPORT STATUS: Signed DATE:09/23/20 TIME: 1134 PATIENT: ABNER NOYOLA UNIT #: [id number] ROOM/BED: [facility] : 93 AGE: 25 SEX: F ATTEND: Leah Fenton MD ADM AUTHOR: Jeremiah Fenton MD * ALL edits or amendments must be made on the Smart Wire Grid/computer document * OB History Chief complaint: scheduled history: : 2 Term: 1 Previous : low uterine trans incis Number of prev : 1 Current : Admission EGA (weeks) 39 Admission EGA (days) 0 Conditions of : previous uterine incisi on Labs: Blood type: O Rh: positive Rubella: immune Hepatitis B: negative HIV: negative STD: negative Syphilis: currently negative GBS: negative Procedures: ultrasound, genetic testing, n on stress test Past medical history: denies PMH Past surgical history: Social history: no alcohol use, no tobacco use, no drug use Objective General VS: Last Documented: Result Date Time B/P Mean 107.0 09/23 1032 B/P 139/90 09/23 1032 Temp 98.3 09/23 1032 Pulse 90 09/23 1032 Vital Signs Date Temp Pulse Resp B/P B/P Mean Pulse Ox FiO2 09/23 98.3 90 139/90 107.0 Patient Weight Weight (lb): 232 Weight (oz): Weight (kg): 105.233 Physical Exam HEENT: normocephalic w/o injury Neuro: Exam: alert, oriented x3 Abdomen: gravid, soft, no abnormal tenderness Uterine activity: Monitor: toco Frequency (description): none Cervical/ exam: Dilatation (cm): 0 - closed Est wt (gms): 3400 Suspected macrosomia: No Suspected > 5000 grams: No presentation: cephalic Baby A: Baby A baseline: 140 bpm Baby A variability: moderate 6-25 bpm Baby A accelerations: 15 X 15 Baby A decelerations: none Baby A FHR category: category 1 Diagnosis, Assessment Plan Diagnosis, Assessment Plan Assessment/Impression: previous C/S, for repeat Plan: at 1137 RPT #:[id number] END OF REPORT
[2023-03-21] MEDS ORDERED: NA CHLORIDE 0.9% 500 ML ONE (00:46)
[2023-03-21] MEDS ORDERED: KETOROLAC 30 MG/ML INJ ONE (00:46)
[2023-03-21] MEDS ORDERED: ONDANSETRON 4 MG/2 ML VIAL ONE (00:46)
[2023-03-21 00:52] LABS: Absolute Lymphocytes (CBC) 2.9 K/uL (0.7-4.9); Hematocrit 38.5 % (36.0-45.0); Lymphocytes % 45.2 % (15.3-44.8); MCV 93.9 fL (80-100); MPV 7.9 fL (7.6-11.3)
[2023-03-21 01:06] LABS: Specific Gravity > 1.030 (1.005-1.030); Urine Bacteria <20 /HPF (<20); Urine Bilirubin NEGATIVE (Negative); Urine Blood 3+ (Negative); Urine Clarity Clear (Clear); Urine Color Yellow (Yellow); Urine Glucose NEGATIVE (Negative); Urine Mucus 2+ /HPF (None Seen); Urine Protein 1+ (Negative); Urine RBC >50 /HPF (None Seen); Urine Urobilinogen 1+ (Normal)
[2023-03-21 01:08] LABS: Albumin 3.9 g/dL (3.4-5.0); Bilirubin Total 0.4 mg/dL (0.2-1.0); Potassium 3.2 mEq/L (3.5-5.1); Protein, Total 7.6 g/dL (6.4-8.2)
[2023-03-21 01:13] LABS: Urine Crystals Unidentified Few /HPF (None Seen)
[2023-03-21 01:14] LABS: Specific Gravity 1.033 (1.005-1.030)
--- NOTE | 2023-03-21 01:57 | RAD REPORT ---
EXAM DESCRIPTION: CT - Abdomen Pelvis Wo Contrast - 03/21/2023 1:46 am CLINICAL HISTORY: Abdominal pain. eval kidney stone COMPARISON: Stone Protocol dated 02/25/2023 TECHNIQUE: CT imaging of the abdomen and pelvis was performed without contrast. Solid organ, bowel a nd vascular assessment is limited due to lack of IV and oral contrast. All CT scans are performed using dose optimization technique as appropriate and may include automated exposure control or mA/KV adjustment according to patient size. FINDINGS: The lower lung ferrera are clear.Postsurgical changes about the stomach. The liver, spleen, pancreas, adrenal glands are within normal limits for a limited non-contrast exami nation.3 mm calculus is present right UVJ resulting in moderate right hydronephrosis and hydroureter. Small bilateral caliceal calculi also present. No bowel obstruction, free air, free fluid or abscess. The appendix is normal. Moderate stool is pre sent throughout the colon. The osseous structures are within normal limits.IUD is present in the uterus. IMPRESSION: 3 mm stone right UVJ resulting in moderate right hydronephrosis and hydroureter. A limited non-contrast examination was performed as detailed.
--- NOTE | 2023-03-21 03:00 | EDPHYS ---
Physician Documentation [facility] Name: Kasey Levy Age: 27 yrs Sex: Female : 1995 Arrival Date: 03/21/2023 Time: 00:24 Bed 6 Private MD: ED Physician Bib Frye HPI: 03/21 00:31 This 27 yrs old Female presents to ER via EMS with unknown complaint. bs3 02:44 This 27 yrs old Female presents to ER via EMS with complaints of Flank Pain. bs3 02:44 27-year-old female history of kidney stones presents with sudden onset of right flank bs3 and suprapubic pain started suddenly 1 hour prior to arrival she did not take anything for it nothing makes her pain better or worse she had similar symptoms before denies vaginal bleeding or discharge denies chest pain shortness of breath or anything else her pain is moderate in intensity. 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 - Social history:: Smoking status: Patient denies any tobacco usage or history of. ROS: 02:44 Constitutional: Negative for fever, chills bs3 02:44 All other systems are negative. Exam: 02:44 Constitutional: pt writhing in pain Head/Face: Normocephalic, atraumatic. Eyes: bs3 Pupils equal round and reactive to light, extra-ocular motions intact. Lids and lashes normal. ENT: mmm, no posterior phyarngeal erythema Neck: Trachea midline, no thyromegaly, no neck stiffness Chest/axilla: Normal chest wall appearance and motion. Nontender with no deformity. No lesions are appreciated. Cardiovascular: Regular rate and rhythm with a normal S1 and S2. symmetric pulses in upper extremities Respiratory: Lungs have equal breath sounds bilaterally, clear to auscultation, no respiratory distress Abdomen/GI: Soft, non-tender, no rebound or guarding MS/ Extremity: Pulses equal, no cyanosis. Neurovascular intact. Full, normal range of motion. Neuro: Awake and alert, GCS 15, oriented to person, place, time, and situation. Cranial nerves II-XII grossly intact. Motor strength 5/5 in all extremities. Sensory grossly intact. Psych: Awake, alert, with orientation to person, place and time. Behavior, mood, and affect are within normal limits. Vital Signs: 00:49 BP 127 / 80; Pulse 53; Resp 16; Temp 98.1(O); Pulse Ox 100% ; Weight 108.41 kg; Height rv 5 ft. 7 in. ; Pain 8/10; 01:00 BP 113 / 65; Pulse 72; Resp 16; Pulse Ox 96% on R/A; vc1 01:30 BP 114 / 68; Pulse 76; Resp 16; Pulse Ox 98% on R/A; vc1 02:36 BP 129 / 77; Pulse 76; Resp 16; Pulse Ox 98% ; vc1 00:49 Body Mass Index 37.43 (108.41 kg, 170.18 cm) rv 00:49 Pain Scale: Adult rv [place] Coma Score: 03:07 Eye Response: spontaneous(4). Motor Response: obeys commands(6). Verbal Response: rv oriented(5). Total: 15. MDM: 00:29 Patient medically screened. bs3 02:44 Data reviewed: vital signs, nurses notes. ED course: possible uti, kidney stone, bs3 possible torsion although less likely. . 02:57 ED course: Patient found to have 3 mm stone she was sleeping comfortably during her bs3 entire stay after Toradol advised urology follow-up return precautions given. 03/21 00:31 Order name: CBC with Diff; Complete Time: 01: bs3 03/21 00:31 Order name: Comprehensive Metabolic Panel; Complete Time: : bs3 03/21 00:31 Order name: Urinalysis w/ reflexes; Complete Time: :29 bs3 03/21 00:31 Order name: Test, Urine; Complete Time: 01:29 bs3 03/21 00:31 Order name: CT Abd/Pelvis - Without Cont (PO Contrast Only); Complete Time: 02:38 bs3 Administered Medications: 00:44 Drug: NS 0.9% IV 500 ml Route: IV; Rate: 1 bolus; Site: right antecubital; rv 03:08 Follow up: IV Status: Completed infusion; IV Intake: 500ml rv 00:44 Drug: Ondansetron IVP 4 mg Route: IVP; Site: right antecubital; rv 03:08 Follow up: Response: Marked relief of symptoms rv 00:44 Drug: Ketorolac IVP 15 mg Route: IVP; Site: right antecubital; rv 03:08 Follow up: Response: Marked relief of symptoms rv Disposition Summary: 03/21/23 03:00 Discharge Ordered Location: Home bs3 Problem: new bs3 Symptoms: have improved bs3 Condition: Stable bs3 Diagnosis - Right Distal Kidney Stone bs3 Followup: bs3 - With: Private Physician - When: 1 week - Reason: Re-evaluation by your physician Discharge Instructions: - Discharge Summary Sheet bs3 - Kidney Stones, [id number] bs3 Forms: - Medication Reconciliation Form bs3 - Thank You Letter bs3 Signatures: Dispatcher [employer] Ephraim Shafer RN RN rv Bib Frye MD MD bs3
--- NOTE | 2023-03-21 03:00 | ER ---
Nurse's Notes [facility] Name: Kasey Levy Age: 27 yrs Sex: Female : 1995 Arrival Date: 03/21/2023 Time: 00:24 Bed 6 Private MD: Diagnosis: Right Distal Kidney Stone Presentation: 03/21 00:49 Chief complaint: Patient states: bilateral flank pain started \T\ 2330 today. pain of rv 8/10. denies n/v/d. no fever. Coronavirus screen: Vaccine status: Patient reports having had a previously documented Covid positive illness. 2020. Ebola Screen: Patient negative for fever greater than or equal to 101.5 degrees Fahrenheit, and additional compatible Ebola Virus Disease symptoms Patient denies exposure to infectious person. Patient denies travel to an Ebola-affected area in the 21 days before illness onset. Initial Sepsis Screen: Does the patient meet any 2 criteria? No. Patient's initial sepsis screen is negative. Does the patient have a suspected source of infection? No. Patient's initial sepsis screen is negative. Risk Assessment: Do you want to hurt yourself or someone else? Patient reports no desire to harm self or others. Onset of symptoms was March 20, 2023 at 23:30. 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 - Social history:: Smoking status: Patient denies any tobacco usage or history of. Screenin:54 [facility] ED Fall Risk Assessment (Adult) History of falling in the last 3 months, rv including since admission No falls in past 3 months (0 pts). Abuse screen: Denies threats or abuse. Denies injuries from another. Nutritional screening: No deficits noted. Tuberculosis screening: No symptoms or risk factors identified. Assessment: 00:53 General: Appears in no apparent distress. comfortable, Behavior is calm, cooperative. rv Pain: Complains of pain in left low back and right low back Pain currently is 8 out of 10 on a pain scale. Neuro: Level of Consciousness is awake, alert, obeys commands, Oriented to person, place, time, situation. Cardiovascular: Capillary refill < 3 seconds. Respiratory: Airway is patent Respiratory pattern is regular. GI: Abdomen is round non-distended. : No deficits noted. No signs and/or symptoms were reported regarding the genitourinary system. 01:43 Reassessment: No changes from previously documented assessment. Patient and/or family vc1 updated on plan of care and expected duration. Pain level reassessed. 02:36 Reassessment: No changes from previously documented assessment. Patient and/or family vc1 updated on plan of care and expected duration. Pain level reassessed. 03:07 Reassessment: Patient appears in no apparent distress at this time. pt discharged rv ambulatory, ao x 4. Vital Signs: 00:49 BP 127 / 80; Pulse 53; Resp 16; Temp 98.1(O); Pulse Ox 100% ; Weight 108.41 kg; Height rv 5 ft. 7 in. ; Pain 8/10; 01:00 BP 113 / 65; Pulse 72; Resp 16; Pulse Ox 96% on R/A; vc1 01:30 BP 114 / 68; Pulse 76; Resp 16; Pulse Ox 98% on R/A; vc1 02:36 BP 129 / 77; Pulse 76; Resp 16; Pulse Ox 98% ; vc1 00:49 Body Mass Index 37.43 (108.41 kg, 170.18 cm) rv 00:49 Pain Scale: Adult rv [place] Coma Score: 03:07 Eye Response: spontaneous(4). Motor Response: obeys commands(6). Verbal Response: rv oriented(5). Total: 15. ED Course: 00:28 Patient arrived in ED. sb4 00:28 Ephraim Sinclair, AJAY is Primary Nurse. rv 00:28 Inserted saline lock: 20 gauge in right antecubital area, using aseptic technique. rv Blood collected. 00:29 Bib Frye MD is Attending Physician. bs3 00:45 CBC with Diff Sent. rv 00:45 Comprehensive Metabolic Panel Sent. rv 00:45 Urinalysis w/ reflexes Sent. rv 00:45 Test, Urine Sent. rv 00:51 Triage completed. rv 00:54 Patient has correct armband on for positive identification. Bed in low position. Call rv light in reach. Side rails up X 1. 01:47 CT Abd/Pelvis - Without Cont (PO Contrast Only) In Process Unspecified. EDMS 03:06 No provider procedures requiring assistance completed. IV discontinued, intact, rv bleeding controlled, No redness/swelling at site. Pressure dressing applied. Administered Medications: 00:44 Drug: NS 0.9% IV 500 ml Route: IV; Rate: 1 bolus; Site: right antecubital; rv 03:08 Follow up: IV Status: Completed infusion; IV Intake: 500ml rv 00:44 Drug: Ondansetron IVP 4 mg Route: IVP; Site: right antecubital; rv 03:08 Follow up: Response: Marked relief of symptoms rv 00:44 Drug: Ketorolac IVP 15 mg Route: IVP; Site: right antecubital; rv 03:08 Follow up: Response: Marked relief of symptoms rv Medication: 02:36 VIS not applicable for this client. vc1 Intake: 03:08 IV: 500ml; Total: 500ml. rv Outcome: 03:00 Discharge ordered by bs3 03:08 Patient left the ED. rv Signatures: Dispatcher [employer] EDMS Ephraim Sinclair, RN RN rv Leticia Amor RN RN vc1 Bib Frye MD MD bs3 Mary Peoples PA-C PA-C sb4
[2023-03-21 03:16] VITALS: TEMP 98.1
[2023-03-21 03:20] VITALS: O2SAT 98
[2023-03-21 03:22] VITALS: BP 129/77
== END 2023-03-21 03:08 | disposition home or self-care (01) ==
LOC: ER 00:24
DX: N20.0 Calculus of kidney (principal); Z87.442 Personal history of urinary calculi
CPT/HCPCS: 85025; 81001; 36415; 81025; 80053; 74176; J2405; J7040

== ENCOUNTER 2023-03-21 20:06 | Emergency (ER) | payer OTHER ==
--- OUTSIDE RECORDS SUMMARY | 2023-03-21 20:16 | XMS REPORT | Continuity of Care Document ---
:1995 Author Organization [facility] t Address [address] [place] [address] [place] [id number] Care Team Providers Name Role Phone Deb Rider Primary Care Physician LOY NIELSON Attending Clinician Unavailable Jeremiah Fenton Attending Clinician Unavailable Gidvani_B Attending Clinician Unavailable EKABE OBONORUMA IMARIA Attending Clinician Unavailable Ekabe Obonomarikaa Adeolaariabe Attending Clinician DILEEP SAUNDERS Attending Clinician Unavailable Dileep Saunders PA-C Attending Clinician 2, Adc Lab Attending Clinician Unavailable Doctor Unassigned, [place] Attending Clinician Unavailable bEony Chan Attending Clinician Unavailable JOSE WATT Attending Clinician Unavailable ANNIE ELLIOTT Attending Clinician Unavailable Visit, Analilia Nurse Attending Clinician Unavailable Annie Giraldo Attending Clinician Lab, Analilia Attending Clinician Unavailable Ultrasound, OrinMftank Attending Clinician Unavailable Kraig Kan MD Attending Clinician FELICITAS VUONG Attending Clinician Unavailable Risk, Qxm-Alwgf-Tf/High Attending Clinician Unavailable Felicitas Rausch Attending Clinician Ghulam Fentonory Pamela Admitting Clinician Unavailable Gidvani_B Admitting Clinician Unavailable EKHAESE, OBONORUMA IMARIA Admitting Clinician Unavailable Ekhaese, Obonoruma Imariabe Admitting Clinician KNOW, DOES_NOT Admitting Clinician Unavailable Payers Payer Name Policy Type Policy Number Effective Date Expiration Date S pooja [facility] MEDICAID STAR [id number] 2020 00:00:00 [facility] [id number] 2020 CHOICE (MEDICAID 00:00:00 [facility] [id number] 2020 CHOICE [place] STAR 00:00:00 MED[place] [id number] 2020 00:00:00 Problems Condition Condition Condition Status Onset Resolution Last Treating Co mments Source Name Details Category Date Date Treatment Clinician Date E603.31 E66.01 Diagnosis Active 2023-02-16 Me moria Active 01-31 15:53:00 l 01/31/2023 00:00: Christian anderson [address] LAP LAP Diagnosis Active 2023-02-18 Mem oria GASTRIC GASTRIC 01-31 12:11:00 l SLEEVE, SLEEVE, 00:00: [place] E66.01 E66.01 00 Active 01/31/2023 [facility] EGD EGD Diagnosis Active 2022-11-17 Mem oria Active 11-05 06:10:00 l 11/05/2022 00:00: Christian anderson [facility] 00 [place] K21.9 K21.9 Diagnosis Active 2022-11-16 Mem oria Active 11-05 14:46:00 l 11/05/2022 00:00: Christian anderson [facility] 00 [place] Adult ADHD Adult ADHD Disease Active 2019- U nivers 5-28 ity of 00:00: [place] [address] Medical Branch Congestion Congestion Disease Active 2020- U nivers of nasal of nasal 5-12 ity of sinus sinus 00:00: [place] [address] Medical Branch Maternal Maternal Disease Active 2020-0 [...] 2018-nCoV nCoV Herm jing Resolved Problem 02/14/2023 [facility] Gestationa Gestation Problem Resolve 2023-02-14 Memoria l diabetes al d 13:17:38 l mellitus diabetes Christian n (disorder) mellitus (disorder) Resolved Problem 02/14/2023 [facility] Heartburn Heartburn Problem Resolve 2023-02-14 Memoria (finding) (finding) d 13:17:38 l Resolved [place] Problem 02/14/2023 [facility] Tachycardi Problem Resolve 2023-02-14 Memoria a Tachycardi d 13:17:38 l (finding) a [place] (finding) Resolved Problem 02/14/2023 [facility] Anxiety Anxiety Problem Active 2023-02-19 Me moria (finding) (finding) 23:37:27 l Active [place] Problem 02/19/2023 [facility] Attention Attention Problem Active 2023-02-19 Memoria deficit deficit 23:37:27 l hyperactiv hyperactiv He rmann ity ity disorder disorder (disorder) (disorder) Active Problem 02/19/2023 [facility] Body mass Body mass Problem Active 2023-02-19 Memoria index 30+ index 30+ 23:37:27 l - obesity - obesity Herm jing (finding) (finding) Active Problem 02/19/2023 BMI=39 [facility] Does use Does use Problem Active 2023-02-19 Memoria contact contact 23:37:27 l lenses lenses [place] (finding) (finding) Active Problem 02/19/2023 [facility] Lalito Lalito Problem Active 2023-02-19 Memoria thyroiditi thyroiditi 23:37:27 l s s [place] (disorder) (disorder) Active Problem 02/19/2023 [facility] Sleep Sleep Problem Active 2023-02-19 Memor ia apnea apnea 23:37:27 l (finding) (finding) Herm jing Active Problem 02/19/2023 [facility] History of History Problem Active 2023-02-19 Memoria bariatric of 23:37:27 l surgical bariatric [place] nn procedure surgical (situation procedure ) (situation ) Active Problem 02/19/2023 [facility] MORBID MORBID Diagnosis Active 2023-02-18 Me moria (SEVERE) (SEVERE) 12:11:00 l OBESITY OBESITY [place] DUE TO DUE TO EXCESS CA EXCESS CA Active [facility] Allergies, Adverse Reactions, Alerts Allergy Allergy Status Severity Reaction(s) Onset Inactive Treating Comm ents Source Name Type Date Date Clinician No Known DA Active [facility] [place] No Known DA Active U 2019-10 [facility] Allergie 1-30 [facility] [place] No Known DA Active U 2019-10 [facility]ie 1-[facility] [place] No Known DA Active U 2019-10 [facility] Allergie 1-24 [facility] [place] No Known DA Active U 2019-10 [facility] Allergie 1-24 [facility] [place] NO KNOWN Drug Active Univers ALLERGIE Class [facility] [place] [facility] Social History Social Habit Start Date Stop Date Quantity Comments Source ASSERTION 2020-01-08 University of 00:00:00 [facility] Branch History SDOH [facility] Alcohol Frequency History SDOH [facility] Alcohol Std Drinks History [facility] Alcohol Binge History of Passive smoker University of tobacco use [facility] Exposure to 2022-10-30 2022-11-09 Not sure University of SARS-CoV-2 00:00:00 09:41:00 [facility] [place] Tobacco use and 2022-11-09 2022-11-09 Smokeless tobacco Un iversity of exposure 00:00:00 00:00:00 non-user [facility] Alcohol Comment 2022-11-09 2022-11-09 ocassional [facility] y of 00:00:00 00:00:00 [facility] Alcohol intake 2022-06-29 2022-06-29 .14 /d [facility] 00:00:00 00:00:00 Sex [birth year] At [birth year] [facility] 00:00:00 00:00:00 Smoking Status Start Date Stop Date Source Unknown if ever smoked [facility] Tobacco smoking status [facility] Medications Ordered Filled Start Stop Current Ordering [...] day, # 20 tab, 0 Refill(s), Pharmacy: [facility] [id number], 170.18, cm, 02/09/23 9:39:00 CDT, Height, 117.136, kg, 02/09/23 9:39:00 CDT, Weight Zofran 4 mg 2023-0 Yes 4 mg = 1 Me moria oral tablet 4-20 tab, PO, l 15:53: Q6H, PRN [place] 00 Nausea/Vom iting, X 5 day, # 20 tab, 0 Refill(s), Pharmacy: [facility] [id number], 170.18, cm, 02/09/23 9:39:00 CDT, Height, 117.136, kg, 02/09/23 9:39:00 CDT, Weight Zofran 4 mg 2023-0 Yes 4 mg = 1 Me moria oral tablet 4-20 tab, PO, l 15:53: Q6H, PRN [place] 00 Nausea/Vom iting, X 5 day, # 20 tab, 0 Refill(s), Pharmacy: [facility] [id number], 170.18, cm, 02/09/23 9:39:00 CDT, Height, 117.136, kg, 02/09/23 9:39:00 CDT, Weight heparin 2023-0 Yes 5,000 Memoria 5000 4-13 unit, l units/mL 14:00: Route: [place] injectable 00 SUB-Q, solution Drug form: INJ, Q12H, Dosing Weight 117.273, kg, Start date: 02/10/23 9:00:00 CDT, Duration: 30 day, Stop date: 03/11/23 21:00:00 CDT heparin 2023-0 Yes 5,000 Memoria 5000 4-13 unit, l units/mL 14:00: Route: [place] injectable 00 SUB-Q, solution Drug form: INJ, Q12H, Dosing Weight 117.273, kg, Start date: 02/10/23 9:00:00 CDT, Duration: 30 day, Stop date: 03/11/23 21:00:00 CDT heparin 2023-0 Yes 5,000 Memoria 5000 4-13 unit, l units/mL 14:00: Route: [place] injectable 00 SUB-Q, solution Drug form: INJ, Q12H, Dosing Weight 117.273, kg, Start date: 02/10/23 9:00:00 CDT, Duration: 30 day, Stop date: 03/11/23 21:00:00 CDT ceFAZolin 2023-0 Yes 3 gm, Memoria 4-13 Route: l 11:00: IVP, [place] 00 ONCALL, Dosing Weight 117.273, kg, (for patients < 100 kg), Start date: 02/10/23 6:00:00 CDT, Duration: 1 doses or times, ABX Indication : Surgical Prophylaxi s scopolamine 2023-0 Yes 1 patch, Me moria 1 mg/72 [...] ABX Indication : Surgical Prophylaxi s scopolamine 2023-0 Yes 1 patch, Me moria 1 mg/72 hr 4-13 Route: l transdermal 11:00: TOP, Drug H ermann film, 00 Form: extended ERFILM, release Dosing Weight 117.273, kg, PRE OP, Start date: 02/10/23 6:00:00 CDT, Duration: 30 day, Stop date: 03/12/23 5:59:00 CDT ceFAZolin 2023-0 Yes 3 gm, Memoria 4-13 Route: l 11:00: IVP, [place] 00 ONCALL, Dosing Weight 117.273, kg, (for patients < 100 kg), Start date: 02/10/23 6:00:00 CDT, Duration: 1 doses or times, ABX Indication : Surgical Prophylaxi s scopolamine 2023-0 Yes 1 patch, Me moria 1 mg/72 [...] 0 Memori a 4-12 Refill(s) l 14:24: multivitami 2022-0 Yes Daily, 0 Me moria n 4-12 Refill(s) l 14:24: Vitamin B12 2022-0 Yes 0 Memori a 4-12 Refill(s) l 14:24: multivitami 2022-0 Yes Daily, 0 Me moria n 4-12 Refill(s) l 14:24: Vitamin B12 2022-0 Yes 0 Memori a 4-12 Refill(s) l 14:24: Tums 0 Yes 500 mg, Memoria 1-11 CHEW, PRN, l 17:52: 0 Refill(s) Tums 0 Yes 500 mg, Memoria 1-11 CHEW, PRN, l 17:52: 0 Refill(s) Tums 2022-0 Yes 500 mg, Memoria 1-11 CHEW, PRN, l 17:52: 0 Refill(s) Singulair 0 Yes 10 mg = 1 Mem oria 10 mg oral 1-11 tab, PO, l tablet 17:51: QAM, 0 Refill(s) Vitamin D3 0 Yes 1,250 Memori a 50,000 intl 1-11 microgram l units oral 17:51: = 1 cap, Her weinstein capsule 00 PO, qWeek Tylenol 0 Yes 500 mg, Memoria 1-11 PO, PRN, 0 l 17:51: Refill(s) Singulair 2022-0 Yes 10 mg = 1 Mem oria 10 mg oral 1-11 tab, PO, l tablet 17:51: QAM, 0 Refill(s) Vitamin D3 2023-0 Yes 1,250 Memori a 50,000 intl 1-11 microgram l units oral 17:51: = 1 cap, Her weinstein capsule 00 PO, qWeek Tylenol 2022-0 Yes 500 mg, Memoria 1-11 PO, PRN, 0 l 17:51: Refill(s) [place] 00 Singulair 0 Yes 10 mg = 1 Mem oria 10 mg oral 1-11 tab, PO, l tablet 17:51: QAM, 0 [place] 00 Refill(s) Vitamin D3 2022-0 Yes 1,250 Memori a 50,000 intl 1-11 microgram l units oral 17:51: = 1 cap, Her weinstein capsule 00 PO, qWeek Tylenol 2022-0 Yes 500 mg, Memoria 1-11 PO, PRN, 0 l 17:51: Refill(s) [place] 00 Adderall 20 2022-0 Yes 20 mg = 1 M emoria mg oral 1-11 tab, PO, l tablet 17:50: TID, 0 [place] 00 Refill(s) Adderall 20 2022-0 Yes 20 mg = 1 M emoria mg oral 1-11 tab, PO, l tablet 17:50: TID, 0 [place] 00 Refill(s) Adderall 20 2022-0 Yes 20 mg [...] tamine/amph 1-10 mouth. ity of etamine 09:59: [place] (ADDERALL 24 Medical ORAL) Branch ergocalcife Yes Take by Uni vers rol, 1-10 mouth. ity of vitamin D2, 09:59: [place] (VITAMIN D 24 Medical ORAL) Branch montelukast Yes Take by Uni vers sodium 1-10 mouth. ity of (SINGULAIR 09:59: [place] ORAL) 24 Medical Branch dextroamphe Yes Take by Uni vers tamine/amph 1-10 mouth. ity of etamine 09:59: [place] (ADDERALL 24 Medical ORAL) Branch ergocalcife Yes Take by Uni vers rol, 1-10 mouth. ity of vitamin D2, 09:59: [place] (VITAMIN D 24 Medical ORAL) Branch montelukast Yes Take by Uni vers sodium 1-10 mouth. ity of (SINGULAIR 09:59: [place] ORAL) 24 Medical Branch dextroamphe Yes Take by Uni vers tamine/amph 1-10 mouth. ity of etamine 09:59: [place] (ADDERALL 24 Medical ORAL) Branch ergocalcife Yes Take by Uni vers rol, 1-10 mouth. ity of vitamin D2, 09:59: [place] (VITAMIN D 24 Medical ORAL) Branch montelukast Yes Take by Uni vers sodium 1-10 mouth. ity of (SINGULAIR 09:59: [place] ORAL) 24 Medical Branch amphetamine Yes [place] -dextroamph 8-09 Health etamine 00:00: (Adderall) 00 30 MG tablet propranolol Yes [place] (Inderal) 7-29 Health 10 MG 00:00: tablet 00 Blood-Gluco 0 Yes [id number] Use as Univers se Meter 8-24 directed ity of (FREESTYLE 00:00: [place] LITE METER) 00 Medical Kit Branch blood sugar 0 Yes [id number] Use as Univers diagnostic 8-24 directed ity o f (FREESTYLE 00:00: [place] LITE 00 Medical STRIPS) Branch strip lancets 17 Yes [id number] Use as U nivers gauge Misc 8-24 directed ity o f 00:00: [place] 00 Medical Branch Blood-Gluco 2019-0 Yes [id number] Use as Univers se Meter 8-24 directed ity of (FREESTYLE 00:00: [place] LITE METER) 00 Medical Kit Branch blood sugar 2020-0 Yes [id number] Use as Univers diagnostic 8-24 directed ity o f (FREESTYLE 00:00: [place] LITE 00 Medical STRIPS) Branch strip lancets 17 2020-0 Yes [id number] Use as U nivers gauge Misc 8-24 directed ity o f 00:00: [place] 00 Medical Branch Blood-Gluco 2020-0 Yes [id number] Use as Univers se Meter 8-24 directed ity of (FREESTYLE 00:00: [place] LITE METER) 00 Medical Kit Branch blood sugar 2020-0 Yes [id number] Use as Univers diagnostic 8-24 directed ity o f (FREESTYLE 00:00: [place] LITE 00 Medical STRIPS) Branch strip lancets 17 2020-0 Yes [id number] Use as U nivers gauge Misc 8-24 directed ity o f 00:00: [place] 00 Medical Branch Blood-Gluco 2020-0 Yes [id number] Use as Univers se Meter 8-24 directed ity of (FREESTYLE 00:00: [place] LITE METER) 00 Medical Kit Branch blood sugar 2020-0 Yes [id number] Use as Univers diagnostic 8-24 directed ity o f (FREESTYLE 00:00: [place] LITE 00 Medical STRIPS) Branch strip lancets 17 2020-0 Yes [id number] Use as U nivers gauge Misc 8-24 directed ity o f 00:00: [place] 00 Medical Branch Blood-Gluco 2020-0 Yes [id number] Use as Univers se Meter 8-24 directed ity of (FREESTYLE 00:00: [place] LITE METER) 00 Medical Kit Branch blood sugar 2020-0 Yes [id number] Use as Univers diagnostic 8-24 directed ity o f (FREESTYLE 00:00: [place] LITE 00 Medical STRIPS) Branch strip lancets 17 2020-0 Yes [id number] Use as U nivers gauge Misc 8-24 directed ity o f 00:00: [place] 00 Medical Branch Blood-Gluco 2020-0 Yes [id number] Use as Univers se Meter 8-24 directed ity of (FREESTYLE 00:00: [place] LITE METER) 00 Medical Kit Branch blood sugar 2020-0 Yes [id number] Use as Univers diagnostic 8-24 directed ity o f (FREESTYLE 00:00: [place] LITE 00 Medical STRIPS) Branch strip lancets 17 2020-0 Yes [id number] Use as U nivers gauge Misc 8-24 directed ity o f 00:00: [place] 00 Medical Branch Blood-Gluco 2020-0 Yes [id number] Use as Univers se Meter 8-24 directed ity of (FREESTYLE 00:00: [place] LITE METER) 00 Medical Kit Branch blood sugar 2020-0 Yes [id number] Use as Univers diagnostic 8-24 directed ity o f (FREESTYLE 00:00: [place] LITE 00 Medical STRIPS) Branch strip lancets 17 2019-0 Yes [id number] Use as U nivers gauge Misc 8-24 directed ity o f 00:00: [place] 00 Medical Branch Blood-Gluco 2020-0 Yes [id number] Use as Univers se Meter 8-24 directed ity of (FREESTYLE 00:00: [place] LITE METER) 00 Medical Kit Branch blood sugar 2019-0 Yes [id number] Use as Univers diagnostic 8-24 directed ity o f (FREESTYLE 00:00: [place] LITE 00 Medical STRIPS) Branch strip lancets 17 2019-0 Yes [id number] Use as U nivers gauge Misc 8-24 directed ity o f 00:00: [place] 00 Medical Branch Blood-Gluco 2019-0 Yes [id number] Use as Univers se Meter 8-24 directed ity of (FREESTYLE 00:00: [place] LITE METER) 00 Medical Kit Branch blood sugar 2019-0 Yes [id number] Use as Univers diagnostic 8-24 directed ity o f (FREESTYLE 00:00: [place] LITE 00 Medical STRIPS) Branch strip lancets 17 2019-0 Yes [id number] Use as U nivers gauge Misc 8-24 directed ity o f 00:00: [place] 00 Medical Branch colistin-ne 2019-0 Yes [id number] 1[drp] Place 1 Univers omycin-hc-t 4-15 Drop in ity o f [place] 00:00: both ears Dave as (CORTISPORI 00 4 (four) Medi michael N-TC) times Branch 3.3-3-10-0. daily. 5 mg/mL otic drops 2019-0 Yes [id number] 1{packe Take 1 Univers vit 4-15 t} Packet by ity of 33-iron-fol 00:00: mouth [place] ic-dha 00 daily. Medical (SELECT-OB Branch + DHA) 29 mg iron-1 mg -250 mg combo pack colistin-ne 2019-0 Yes [id number] 1[drp] Place 1 Univers omycin-hc-t 4-15 Drop in ity o f [place] 00:00: both [place] Dave as (CORTISPORI 00 4 (four) Medi michael N-TC) times Branch 3.3-3-10-0. daily. 5 mg/mL otic drops 2020-0 Yes [id number] 1{packe Take 1 Univers vit 4-15 t} Packet by ity of 33-iron-fol 00:00: mouth [place] ic-dha 00 daily. Medical (SELECT-OB Branch + DHA) 29 mg iron-1 mg -250 mg combo pack colistin-ne 2020-0 Yes [id number] 1[drp] Place 1 Univers omycin-hc-t 4-15 Drop in ity o f [place] 00:00: both ears Dave as (CORTISPORI 00 4 (four) Medi michael N-TC) times Branch 3.3-3-10-0. daily. 5 mg/mL otic drops 2020-0 Yes [id number] 1{packe Take 1 Univers vit 4-15 t} Packet by ity of 33-iron-fol 00:00: mouth [place] ic-dha 00 daily. Medical (SELECT-OB Branch + DHA) 29 mg iron-1 mg -250 mg combo pack colistin-ne 2020-0 Yes [id number] 1[drp] Place 1 Univers omycin-hc-t 4-15 Drop in ity o f [place] 00:00: both ears Dave as (CORTISPORI 00 4 (four) Medi michael N-TC) times Branch 3.3-3-10-0. daily. 5 mg/mL otic drops 2020-0 Yes [id number] 1{packe Take 1 Univers vit 4-15 t} Packet by ity of 33-iron-fol 00:00: mouth [place] ic-dha 00 daily. Medical (SELECT-OB Branch + DHA) 29 mg iron-1 mg -250 mg combo pack colistin-ne 2020-0 Yes [id number] 1[drp] Place 1 Univers omycin-hc-t 4-15 Drop in ity o f [place] 00:00: both ears Dave as (CORTISPORI 00 4 (four) Medi michael N-TC) times Branch 3.3-3-10-0. daily. 5 mg/mL otic drops 2020-0 Yes [id number] 1{packe Take 1 Univers vit 4-15 t} Packet by ity of 33-iron-fol 00:00: mouth [place] ic-dha 00 daily. Medical (SELECT-OB Branch + DHA) 29 mg iron-1 mg -250 mg combo pack colistin-ne 2020-0 Yes [id number] 1[drp] Place 1 Univers omycin-hc-t 4-15 Drop in ity o f [place] 00:00: both ears [place] as (CORTISPORI 00 4 (four) Medi michael N-TC) times Branch 3.3-3-10-0. daily. 5 mg/mL otic drops 2020-0 Yes [id number] 1{packe Take 1 Univers vit 4-15 t} Packet by ity of 33-iron-fol 00:00: mouth [place] ic-dha 00 daily. Medical (SELECT-OB Branch + DHA) 29 mg iron-1 mg -250 mg combo pack colistin-ne 2020-0 Yes [id number] 1[drp] Place 1 Univers omycin-hc-t 4-15 Drop in ity o f [place] 00:00: both ears Dave as (CORTISPORI 00 4 (four) Medi michael N-TC) times Branch 3.3-3-10-0. daily. 5 mg/mL otic drops 2020-0 Yes [id number] 1{packe Take 1 Univers vit 4-15 t} Packet by ity of 33-iron-fol 00:00: mouth [place] ic-dha 00 daily. Medical (SELECT-OB Branch + DHA) 29 mg iron-1 mg -250 mg combo pack colistin-ne 2020-0 Yes [id number] 1[drp] Place 1 Univers omycin-hc-t 4-15 Drop in ity o f [place] 00:00: both ears Dave as (CORTISPORI 00 4 (four) Medi michael N-TC) times Branch 3.3-3-10-0. daily. 5 mg/mL otic drops 2020-0 Yes [id number] 1{packe Take 1 Univers vit 4-15 t} Packet by ity of 33-iron-fol 00:00: mouth [place] ic-dha 00 daily. Medical (SELECT-OB Branch + DHA) 29 mg iron-1 mg -250 mg combo pack colistin-ne 2020-0 Yes [id number] 1[drp] Place 1 Univers omycin-hc-t 4-15 Drop in ity o f [place] 00:00: both ears Dave as (CORTISPORI 00 4 (four) Medi michael N-TC) times Branch 3.3-3-10-0. daily. 5 mg/mL otic drops 2020-0 Yes [id number] 1{packe Take 1 Univers vit 4-15 t} Packet by ity of 33-iron-fol 00:00: mouth [place] ic-dha 00 daily. Medical (SELECT-OB Branch + DHA) 29 mg iron-1 mg -250 mg combo pack colistin-ne 2020-0 Yes [id number] 1[drp] Place 1 Univers omycin-hc-t 4-15 Drop in ity o f [place] 00:00: both ears Dave as (CORTISPORI 00 4 (four) Medi michael N-TC) times Branch 3.3-3-10-0. daily. 5 mg/mL otic drops 2020-0 Yes [id number] 1{packe Take 1 Univers vit 4-15 t} Packet by ity of 33-iron-fol 00:00: mouth [place] ic-dha 00 daily. Medical (SELECT-OB Branch + DHA) 29 mg iron-1 mg -250 mg combo pack colistin-ne 2020-0 Yes [id number] 1[drp] Place 1 Univers omycin-hc-t 4-15 Drop in ity o f [place] 00:00: both ears [place] as (CORTISPORI 00 4 (four) Medi michael N-TC) times Branch 3.3-3-10-0. daily. 5 mg/mL otic drops 2020-0 Yes [id number] 1{packe Take 1 Univers vit 4-15 t} Packet by ity of 33-iron-fol 00:00: mouth [place] ic-dha 00 daily. Medical (SELECT-OB Branch + DHA) 29 mg iron-1 mg -250 mg combo pack colistin-ne 2020-0 Yes [id number] 1[drp] Place 1 Univers omycin-hc-t 4-15 Drop in ity o f [place] 00:00: both ears Dave as (CORTISPORI 00 4 (four) Medi michael N-TC) times Branch 3.3-3-10-0. daily. 5 mg/mL otic drops 2020-0 Yes [id number] 1{packe Take 1 Univers vit 4-15 t} Packet by ity of 33-iron-fol 00:00: mouth [place] ic-dha 00 daily. Medical (SELECT-OB Branch + DHA) 29 mg iron-1 mg -250 mg combo pack colistin-ne 2020-0 Yes [id number] 1[drp] Place 1 Univers omycin-hc-t 4-15 Drop in ity o f [place] 00:00: both ears Dave as (CORTISPORI 00 4 (four) Medi michael N-TC) times Branch 3.3-3-10-0. daily. 5 mg/mL otic drops 2020-0 Yes [id number] 1{packe Take 1 Univers vit 4-15 t} Packet by ity of 33-iron-fol 00:00: mouth [place] ic-dha 00 daily. Medical (SELECT-OB Branch + DHA) 29 mg iron-1 mg -250 mg combo pack colistin-ne 2020-0 Yes [id number] 1[drp] Place 1 Univers omycin-hc-t 4-15 Drop in ity o f [place] 00:00: both ears Dave as (CORTISPORI 00 4 (four) Medi michael N-TC) times Branch 3.3-3-10-0. daily. 5 mg/mL otic drops 2020-0 Yes [id number] 1{packe Take 1 Univers vit 4-15 t} Packet by ity of 33-iron-fol 00:00: mouth [place] ic-dha 00 daily. Medical (SELECT-OB Branch + DHA) 29 mg iron-1 mg -250 mg combo pack colistin-ne 2020-0 Yes [id number] 1[drp] Place 1 Univers omycin-hc-t 4-15 Drop in ity o f [place] 00:00: both ears [place] as (CORTISPORI 00 4 (four) Medi michael N-TC) times Branch 3.3-3-10-0. daily. 5 mg/mL otic drops 2020-0 Yes [id number] 1{packe Take 1 Univers vit 4-15 t} Packet by ity of 33-iron-fol 00:00: mouth [place] ic-dha 00 daily. Medical (SELECT-OB Branch + DHA) 29 mg iron-1 mg -250 mg combo pack colistin-ne 2020-0 Yes [id number] 1[drp] Place 1 Univers omycin-hc-t 4-15 Drop in ity o f [place] 00:00: both ears [place] as (CORTISPORI 00 4 (four) Medi michael N-TC) times Branch 3.3-3-10-0. daily. 5 mg/mL otic drops 2020-0 Yes [id number] 1{packe Take 1 Univers vit 4-15 t} Packet by ity of 33-iron-fol 00:00: mouth [place] ic-dha 00 daily. Medical (SELECT-OB Branch + DHA) 29 mg iron-1 mg -250 mg combo pack colistin-ne 2020-0 Yes [id number] 1[drp] Place 1 Univers omycin-hc-t 4-15 Drop in ity o f [place] 00:00: both ears Dave as (CORTISPORI 00 4 (four) Medi michael N-TC) times Branch 3.3-3-10-0. daily. 5 mg/mL otic drops 2020-0 Yes [id number] 1{packe Take 1 Univers vit 4-15 t} Packet by ity of 33-iron-fol 00:00: mouth [place] ic-dha 00 daily. Medical (SELECT-OB Branch + DHA) 29 mg iron-1 mg -250 mg combo pack colistin-ne 2020-0 Yes [id number] 1[drp] Place 1 Univers omycin-hc-t 4-15 Drop in ity o f [place] 00:00: both ears [place] as (CORTISPORI 00 4 (four) Medi michael N-TC) times Branch 3.3-3-10-0. daily. 5 mg/mL otic drops 2020-0 Yes [id number] 1{packe Take 1 Univers vit 4-15 t} Packet by ity of 33-iron-fol 00:00: mouth [place] ic-dha 00 daily. Medical (SELECT-OB Branch + DHA) 29 mg iron-1 mg -250 mg combo pack colistin-ne 2020-0 Yes [id number] 1[drp] Place 1 Univers omycin-hc-t 4-15 Drop in ity o f [place] 00:00: both ears Dave as (CORTISPORI 00 4 (four) Medi michael N-TC) times Branch 3.3-3-10-0. daily. 5 mg/mL otic drops 2020-0 Yes [id number] 1{packe Take 1 Univers vit 4-15 t} Packet by ity of 33-iron-fol 00:00: mouth [place] ic-dha 00 daily. Medical (SELECT-OB Branch + DHA) 29 mg iron-1 mg -250 mg combo pack colistin-ne 2020-0 Yes [id number] 1[drp] Place 1 Univers omycin-hc-t 4-15 Drop in ity o f [place] 00:00: both ears Dave as (CORTISPORI 00 4 (four) Medi michael N-TC) times Branch 3.3-3-10-0. daily. 5 mg/mL otic drops 2020-0 Yes [id number] 1{packe Take 1 Univers vit 4-15 t} Packet by ity of 33-iron-fol 00:00: mouth [place] ic-dha 00 daily. Medical (SELECT-OB Branch + DHA) 29 mg iron-1 mg -250 mg combo pack colistin-ne 2019-0 Yes [id number] 1[drp] Place 1 Univers omycin-hc-t 4-15 Drop in ity o f [place] 00:00: both ears Dave as (CORTISPORI 00 4 (four) Medi michael N-TC) times Branch 3.3-3-10-0. daily. 5 mg/mL otic drops 2020-0 Yes [id number] 1{packe Take 1 Univers vit 4-15 t} Packet by ity of 33-iron-fol 00:00: mouth [place] ic-dha 00 daily. Medical (SELECT-OB Branch + DHA) 29 mg iron-1 mg -250 mg combo pack colistin-ne 2020-0 Yes [id number] 1[drp] Place 1 Univers omycin-hc-t 4-15 Drop in ity o f honzonium 00:00: both ears Dave as (CORTISPORI 00 4 (four) Medi michael N-TC) times Branch 3.3-3-10-0. daily. 5 mg/mL otic drops 2020-0 Yes [id number] 1{packe Take 1 Univers vit 4-15 t} Packet by ity of 33-iron-fol 00:00: mouth [place] ic-dha 00 daily. Medical (SELECT-OB Branch + DHA) 29 mg iron-1 mg -250 mg combo pack colistin-ne 2020-0 Yes [id number] 1[drp] Place 1 Univers omycin-hc-t 4-15 Drop in ity o f [place]ium 00:00: both ears Dave as (CORTISPORI 00 4 (four) Medi michael N-TC) times Branch 3.3-3-10-0. daily. 5 mg/mL otic drops 2020-0 Yes [id number] 1{packe Take 1 Univers vit 4-15 t} Packet by ity of 33-iron-fol 00:00: mouth [place] ic-dha 00 daily. Medical (SELECT-OB Branch + DHA) 29 mg iron-1 mg -250 mg combo pack colistin-ne 2020-0 Yes [id number] 1[drp] Place 1 Univers omycin-hc-t 4-15 Drop in ity o f honzonium 00:00: both ears Dave as (CORTISPORI 00 4 (four) Medi michael N-TC) times Branch 3.3-3-10-0. daily. 5 mg/mL otic drops 2020-0 Yes [id number] 1{packe Take 1 Univers vit 4-15 t} Packet by ity of 33-iron-fol 00:00: mouth [place] ic-dha 00 daily. Medical (SELECT-OB Branch + DHA) 29 mg iron-1 mg -250 mg combo pack colistin-ne 2020-0 Yes [id number] 1[drp] Place 1 Univers omycin-hc-t 4-15 Drop in ity o f [place] 00:00: both ears Dave as (CORTISPORI 00 4 (four) Medi michael N-TC) times Branch 3.3-3-10-0. daily. 5 mg/mL otic drops 2020-0 Yes [id number] 1{packe Take 1 Univers vit 4-15 t} Packet by ity of 33-iron-fol 00:00: mouth [place] ic-dha 00 daily. Medical (SELECT-OB Branch + DHA) 29 mg iron-1 mg -250 mg combo pack colistin-ne 2020-0 Yes [id number] 1[drp] Place 1 Univers omycin-hc-t 4-15 Drop in ity o f [place] 00:00: both ears Dave as (CORTISPORI 00 4 (four) Medi michael N-TC) times Branch 3.3-3-10-0. daily. 5 mg/mL otic drops 2020-0 Yes [id number] 1{packe Take 1 Univers vit 4-15 t} Packet by ity of 33-iron-fol 00:00: mouth [place] ic-dha 00 daily. Medical (SELECT-OB Branch + DHA) 29 mg iron-1 mg -250 mg combo pack colistin-ne 2020-0 Yes [id number] 1[drp] Place 1 Univers omycin-hc-t 4-15 Drop in ity o f hon[place]ium 00:00: both ears Dave as (CORTISPORI 00 4 (four) Medi michael N-TC) times Branch 3.3-3-10-0. daily. 5 mg/mL otic drops 2020-0 Yes [id number] 1{packe Take 1 Univers vit 4-15 t} Packet by ity of 33-iron-fol 00:00: mouth [place] ic-dha 00 daily. Medical (SELECT-OB Branch + DHA) 29 mg iron-1 mg -250 mg combo pack colistin-ne 2020-0 Yes [id number] 1[drp] Place 1 Univers omycin-hc-t 4-15 Drop in ity o f [place] 00:00: both ears Dave as (CORTISPORI 00 4 (four) Medi michael N-TC) times Branch 3.3-3-10-0. daily. 5 mg/mL otic drops 2020-0 Yes [id number] 1{packe Take 1 Univers vit 4-15 t} Packet by ity of 33-iron-fol 00:00: mouth [place] ic-dha 00 daily. Medical (SELECT-OB Branch + DHA) 29 mg iron-1 mg -250 mg combo pack colistin-ne 2020-0 Yes [id number] 1[drp] Place 1 Univers omycin-hc-t 4-15 Drop in ity o f [place] 00:00: both ears Dave as (CORTISPORI 00 4 (four) Medi michael N-TC) times Branch 3.3-3-10-0. daily. 5 mg/mL otic drops 2019-0 Yes [id number] 1{packe Take 1 Univers vit 4-15 t} Packet by ity of 33-iron-fol 00:00: mouth [place] ic-dha 00 daily. Medical (SELECT-OB Branch + DHA) 29 mg iron-1 mg -250 mg combo pack Vital Signs Vital Name Observation Time Observation Value Comments Source Systolic blood 2022-11-09 15:57:00 111 mm[Hg] Univer [facility]ity [facility] Diastolic blood 2022-11-09 15:57:00 77 [facility]Hg[facility] 2022-11-09 15:57:00 111 /min [facility] Body temperature 2022-11-09 15:57:[address] [facility] [place] [place] Body height 2022-11-09 15:57:00 170.2 cm [facility] Body weight 2022-11-09 15:57:00 115.758 kg [facility] BMI 2022-11-09 15:57:00 39.97 kg/m2 [facility] Systolic blood 2022-06-29 15:05:00 121 mm[facility]Hg[facility] Diastolic blood 2022-06-29 15:05:00 83 mm[Hg] [facility] Heart rate 2022-06-29 15:05:00 90 [facility] height 2022-06-29 15:05:00 [facility] 2022-06-29 15:05:00 [facility]791 [facility] 2022-06-29 15:05:00 34[facility]46 [facility] 2020-06-30 13:16:00 113 mm[Hg] Univer sity [facility] Diastolic blood 2020-06-30 13:16:00 70 mm[Hg] Unive rsity [facility] Heart rate 2020-06-30 13:16:00 110 /min [facility] Body temperature 2020-06-30 13:16:00 36.61 Rosario [facility] Respiratory rate 2020-06-30 13:16:00 16 /min [facility] Body height 2020-06-30 13:16:00 170.2 cm [facility] Body weight 2020-06-30 13:16:00 102.513 kg [facility] BMI 2020-06-30 13:16:00 35.40 kg/m2 [facility] Systolic blood 2020-06-30 13:16:00 113 mm[Hg] [facility]iver [facility] Diastolic blood 2020-06-30 13:16:00 70 mm[Hg] Unive [facility] Heart rate 2020-06-30 13:16:00 110 /min [facility] Body temperature 2020-06-30 13:16:00 36.61 Rosario Univ ers[facility] Respiratory rate 2020-06-30 13:16:00 16 /min [facility] Body height 2020-06-30 13:16:00 170.2 cm [facility] Body weight 2020-06-30 13:16:00 102.513 kg [facility] BMI 2020-06-30 13:16:00 35.40 kg/m2 [facility] Systolic blood 2020-06-17 15:43:00 118 mm[Hg] [facility] Diastolic blood 2020-06-17 15:43:00 76 mm[Hg] Unive [facility] Heart rate 2020-06-17 15:43:00 96 /min [facility] Body temperature 2020-06-17 15:43:00 36.28 Rosario [facility] Respiratory rate 2020-06-17 15:43:00 16 /min [facility] Body height 2020-06-17 15:43:00 170.2 cm [facility] Body weight 2020-06-17 15:43:00 102.74 kg [facility] BMI 2020-06-17 15:43:00 35.47 kg/m2 [facility] Systolic blood 2020-05-13 18:05:00 126 mm[Hg] [facility] Diastolic blood 2020-05-13 18:05:00 71 mm[Hg] Unive [facility] Heart rate 2020-05-13 18:05:00 87 /min [facility] Body temperature 2020-05-13 18:05:00 36.56 Rosario [facility] Respiratory rate 2020-05-13 18:05:00 16 /min [facility] Body height 2020-05-13 18:05:00 170.2 cm [facility] Body weight 2020-05-13 18:05:00 102.649 kg [facility] BMI 2020-05-13 18:05:00 35.44 kg/m2 [facility] Systolic blood 2020-04-14 21:00:00 129 mm[Hg] [facility] Diastolic blood 2020-04-14 21:00:00 87 mm[Hg] [facility]ive [facility] Heart rate 2020-04-14 21:00:00 86 /min [facility] Body temperature 2020-04-14 21:00:00 36.67 Rosario [facility] Respiratory rate 2020-04-14 21:00:00 16 /min [facility] Body height 2020-04-14 21:00:00 170.2 cm [facility] Body weight 2020-04-14 21:00:00 103.137 kg [facility] BMI 2020-04-14 21:00:00 35.61 kg/m2 [facility] Systolic blood 2020-02-13 15:32:00 118 mm[Hg] [facility] Diastolic blood 2020-02-13 15:32:00 67 mm[Hg] [facility]ive [facility] Heart rate 2020-02-13 15:32:00 92 /min [facility] Body temperature 2020-02-13 15:32:00 36.89 Rosario [facility] Respiratory rate 2020-02-13 15:32:00 16 /min [facility] Body height 2020-02-13 15:32:00 170.2 cm [facility] Body weight 2020-02-13 15:32:00 104.441 kg [facility] BMI 2020-02-13 15:32:00 36.06 kg/m2 [facility] Heart Rate 2023-02-17 13:08:45 [facility] Temperature Oral (F) 2023-02-17 13:08:00 98.7 F [facility] Systolic (mm Hg) 2023-02-17 13:06:53 [facility] [place] Diastolic (mm Hg) 2023-02-17 13:06:53 [facility] Weight 2023-02-16 12:56:00 [facility] BMI Calculated 2023-02-16 12:56:00 [facility] Height 2023-02-09 14:39:00 5 [ft_i] [facility] Weight 2023-02-09 14:39:00 [facility] BMI Calculated 2023-02-09 14:39:00 Memori [facility] Systolic (mm Hg) 2022-11-17 14:22:00 Sandoval [facility] Diastolic (mm Hg) 2022-11-17 14:22:00 Mem [facility]rial [facility] Height 2022-11-16 20:56:00 5 [ft_i] [facility] Weight 2022-11-16 20:56:00 [facility] BMI Calculated 2022-11-16 20:56:00 Memori al [facility] Procedures Procedure Date / Time Performing Source Performed Clinician ASSIGNMENT OF BENEFITS 2022-11-09 Doctor Unassigned, [facility] of 15:43:20 [place] [facility] [id number] 2020-09-23 SHEGR [facility] 00:00:00 [facility] POCT URINALYSIS 2020-06-17 Annie Elliott [facility] 15:51:00 [facility] POCT URINALYSIS 2020-06-17 Annie Elliott [facility] 15:50:00 [facility] POCT URINALYSIS 2020-05-13 Annie Elliott [facility] 00:00:00 [facility] POCT URINALYSIS 2020-04-14 Annie Elliott [facility] 21:13:00 [facility] GLUCOSE 1 HOUR POST PRANDIAL 2020-02-13 Annie Elliott [place] of 16:53:00 [facility] CBC WITH DIFFERENTIAL 2020-02-13 Annie Elliott Univers ity of 16:53:00 [facility] HEPATITIS B SURFACE ANTIGEN 2020-02-13 Annie Elliott U niversity of 16:53:00 [facility] HIV 1/2 AG-AB WITH REFLEX 2020-02-13 Annie Elliott Uni versity of 16:53:00 [facility] HB ABO GROUPING 2020-02-13 Annie Elliott [place] of 16:45:00 [facility] PAP SMEAR-LIQUID BASED-CP 2020-02-13 Annie Elliott Uni versity of 16:27:00 [facility] POCT TEST 2020-02-13 Annie Elliott Universit y of 15:34:00 [facility] POCT URINALYSIS 2020-02-13 Annie Elliott [facility] 15:33:00 [facility] ASSIGNMENT OF BENEFITS 2020-02-13 Doctor Unassigned, Univer sity of 15:13:36 [place] [facility] section Joseph anderson EGD - Esophagogastroduodenoscopy Joseph Zarco Encounters Start End Encounter Admission Attending Care Care Encounter Source Date/Time Date/Time Type Type Clinicians Facility Department ID 2022-09-03 Outpatient [id number] [facility] 20:12:22 [id number] Harold[facility] [id number] 2022-06-29 Outpatient [facility] [id number] [place] 09:59:21 [id number] [facility] 2022-06-03 Outpatient [facility] [id number] [place] 14:35:51 [id number] [facility] 2022-02-05 Outpatient JOHNJEVON, [facility] [id number] [place] 09:43:36 SAYEEDA [id number] [facility] 2020-09-29 Inpatient [facility] [id number] [facility] 08:28:[address] [facility] 2020-09-23 [facility] [id number] [facility] 10:00:00 [facility] 2023-02-21 2023-02-21 Outpatient Gidvani_B VFP VFP [id number] [facility] 00:00:00 00:00:00 [id number] Family Practic e 2023-02-16 2023-02-17 Inpatient [facility] [id number] Memoria 12:28:00 16:50:[address] 2023-02-16 2023-02-17 Inpatient [facility] [id number] Memoria 12:28:00 16:50:[address] 2023-02-16 2023-02-17 Inpatient EKHAESE, MHSE SHYANN [id number] MH 07:28:00 11:50:00 OBONORUMA [facility] 2023-02-16 2023-02-17 Outpatient Ekhaese, MHSE MHSE [id number] 07:28:00 11:50:00 Obonoruma 01 aria 2023-02-16 2023-02-16 Outpatient Ekhaese, MHSE MHSE [id number] 09:30:00 09:30:00 Obonoruma 01 Imariabe 2023-02-03 2023-02-03 Outpatient Gidvani_B VFP VFP [id number] [id number] [facility] 00:00:00 00:00:00 [id number] Family Practic e 2022-12-29 2022-12-29 Outpatient Gidvani_B VFP VFP [id number] [id number] [facility] 00:00:00 00:00:00 [id number] Family Practic e 2022-12-01 2022-12-01 Outpatient Oskar [facility] [id number] Univers 15:00:00 15:00:00 DILEEP karo [facility] 2022-11-30 2022-11-30 Outpatient Oskar [facility] [id number] Univers [facility] 2022-[facility]-19 Telephone Chip NEMATTY 1.2.840.114 [id number] Univers 00:00:00 00:00:00 Dileep CHIN [id number] i ty [place] [id number] [facility] 134 [facility] 2022-11-17 2022-11-17 Bedded [facility] [id number] Memoria 12:10:00 14:43:00 Outpatient Haroldo 00 [facility] 2022-11-17 2022-11-17 Bedded [facility] [id number] Memoria 12:10:00 14:43:00 Outpatient Haroldo 00 [facility] 2022-11-17 2022-11-17 Outpatient EKHAESE, MHBL SHYANN [id number] MHBL 06:10:00 08:43:00 OBONORUMA 2022-11-17 2022-11-17 Outpatient Ekhaese, MHPL PL [id number] 06:10:00 08:43:00 Obonoruma 00 Imariabe 2022-11-12 2022-11-12 Outpatient R CHIP [facility] [id number] Univers 00:00:00 00:00:00 DILEEP knapp [facility] 2022-11-09 2022-11-09 Electronic Systems Technician 2, Adc Lab [facility] 1.2.840.114 [id number] Univers 11:15:00 11:30:00 Visit Dileep Saunders 350..13.10 ity [facility] [place] [id number] [facility] 353 [facility] 2022-11-09 2022-11-09 Outpatient R CHIP [facility] [id number] Univers 10:00:00 10:48:57 DILEEP knapp [facility] 2022-11-09 2022-11-09 [facility] [id number] [facility] 10:00:00 10:48:57 Visit Dileep CHIN 350.1.13.10 i ty of [facility] [place] 4.2.7.2.[place] PROF[place] [id number] Me dical [address] 2022-11-09 2022-11-09 Orders Doctor TASHA 1.2.840.114 [id number] Univers 00:00:00 00:00:00 Only Unassigned, ARUN 350.1.13.10 ity of [place] [facility] 4.2.7.2.686 Dave as [id number] [address] 2022-10-12 2022-10-12 Outpatient Oskar [facility] [id number] Univers 13:30:00 13:30:00 [facility] 2022-08-30 2022-09-29 Recurring [facility] [id number] Memoria 14:00:00 05:59:[address] 2022-08-30 2022-09-29 Rec[facility]ring [facility] [id number] Memoria 14:00:00 05:59:[address] 2022-08-30 2022-09-28 Outpatient EKHAESE, MHSE SHYANN [id number] MH 09:00:00 23:59:00 OBONORUMA [facility] 2022-08-30 2022-09-28 Outpatient Ekhaese, MHSE MHSE [id number] 09:00:00 23:59:00 Obonoruma 00 Imariabe 2022-09-13 2022-09-13 Outpatient Oskar [facility] [id number] Univers 13:00:00 13:00:00 [facility] 2022-08-04 2022-08-04 Outpatient Oskar [facility] [id number] Univers 09:00:00 09:00:00 [facility] 2022-07-29 2022-07-29 Outpatient Oskar [facility] [id number] Univers 13:00:00 13:00:00 [facility] 2022-07-13 2022-07-13 Outpatient Oskar [facility] [id number] Univers 10:00:00 10:00:00 [facility] 2022-06-29 2022-06-29 Office CECE Nielson [id number] [place] 10:00:00 12:35:01 Visit Loy JONES 350.1.13.58 matt [facility] 9.2.7.2.686 SPECIALTY [id number] CLINIC 9 2022-01-15 2022-01-15 Emergency EM Martha Leon, [facility] [id number] [facility] 17:24:00 18:34:00 Ebony [facility] 2021-09-30 2021-09-30 Outpatient R SHUKRI [facility] [id number] Univers 10:00:00 10:00:00 JOSE victor [facility] 2020-09-19 2020-09-19 Outpatient Eliceo [facility] [id number] [facility] 10:00:00 10:00:00 Jeremiah [facility] 2020-07-14 2020-07-14 [facility] [id number] Univers 12:45:00 12:45:00 ANNIE victor [facility] 2020-07-14 2020-07-14 Outpatient R ELLIOTT [facility] [id number] Univers 12:45:00 12:45:00 ANNIE joshi joaquín [facility] 2020-06-30 2020-06-30 Outpatient R [facility] [id number] Univers 08:30:00 08:30:[address] [facility] [place] [place] 2020-06-30 2020-06-30 [facility] 1.2 .840.114 [id number] Univers 08:04:52 08:19:52 Visit Annie Elliott WAITER/WAITRESS ROOM SERVICE 350.1.13.10 ity [facility] 4.2.7.2.686 Dave as MATERNAL [id number] Med ical & CHILD 107 [facility] 2020-06-30 2020-06-30 Nurse Visit, [facility] 1.2.840.114 [id number] 08:04:52 08:19:52 Visit Analilia WAITER/WAITRESS ROOM SERVICE 350.1.13.10 [facility] 4.2.7.2.686 MATERNAL [id number] & CHILD [address] [facility] 2020-06-23 2020-06-23 Telephone Earl [facility] [id number] Univers 00:00:00 00:00:00 Roshunda R WAITER/WAITRESS ROOM SERVICE 350.1.13.10 ity of REGIONAL 4.2.7.2.686 Dave as MATERNAL [phone] [facility] & CHILD [address] [place] [address] 2020-06-23 2020-06-23 [facility]phone [facility] [id number] [facility] 00:00:00 00:00:00 Rosmariposanda R WAITER/WAITRESS ROOM SERVICE 350.1.13.10 ity of REGIONAL 4.2.7.2.686 Dave as MATERNAL [id number] [facility] & CHILD [address] [place] [address] 2020-06-23 2020-06-23 [place] [facility] [id number] 00:00:00 00:00:00 Rosmariposanda R WAITER/WAITRESS ROOM SERVICE 350.1.13.10 REGIONAL 4.2.7.2.686 MATERNAL [id number] & CHILD [address] [place] [address] 2020-06-23 2020-06-23 [place] [facility] [id number] 00:00:00 00:00:00 Roshunda R WAITER/WAITRESS ROOM SERVICE 350.1.13.10 REGIONAL 4.2.7.2.686 MATERNAL [id number] & CHILD [address] [place] [address] 2020-06-20 2020-06-20 Electronic Systems Technician Lab, Ang-Rmchp [facility] 1.2.840. 114 [id number] Univers 07:58:46 08:45:00 Visit Elsie Elliottfawn R WAITER/WAITRESS ROOM SERVICE 350.1.13.10 ity of REGIONAL 4.2.7.2.686 Dave as MATERNAL [id number] [facility] & CHILD [address] [place] [address] 2020-06-20 2020-06-20 Outpatient R EARL [facility] [id number] Univers 08:15:00 08:15:00 MARCELLANDA ity o f [facility] 2020-06-18 2020-06-18 Telephone [facility] [id number] Univers 00:00:00 00:00:00 Roshunda R WAITER/WAITRESS ROOM SERVICE 350.1.13.10 ity of REGIONAL 4.2.7.2.686 Dave as MATERNAL [id number] [facility] ical & CHILD [address] [place] [address] 2020-06-17 2020-06-17 Routine [facility] 1.2.840.114 [id number] Univers 10:25:25 11:09:57 Roshunda R WAITER/WAITRESS ROOM SERVICE 350.1.13.10 ity of Visit REGIONAL 4.2.7.2.686 Dave as MATERNAL [id number] [facility] ical & CHILD [address] [place] [address] 2020-06-17 2020-06-17 Outpatient R EALR [facility] [id number] Univers 10:45:00 10:45:00 MARCELLANDA aria o f [facility] 2020-06-13 2020-06-13 Outpatient R EARL [facility] [id number] Univers 08:45:00 08:45:00 MARCELLANDA elmoy o f [facility] 2020-06-09 2020-06-09 Outpatient R EARL [facility] [id number] Univers 12:45:00 12:45:00 MARCELLANDA aria o joaquín [facility] 2020-06-09 2020-06-09 Outpatient R EARL, [facility] [id number] Univers 12:45:00 12:45:00 MARCELLANDA aria o joaquín [facility] 2020-05-13 2020-05-13 Routine [facility] 1.2.840.114 [id number] Univers 12:54:09 13:09:09 Roshunda R WAITER/WAITRESS ROOM SERVICE 350.1.13.10 ity of Visit REGIONAL 4.2.7.2.686 Dave as MATERNAL [id number] [facility] ical & CHILD [address] [place] [address] 2020-05-13 2020-05-13 Electronic Systems Technician Ultrasound, [facility] 1.2 .840.114 [id number] Univers 11:01:46 12:28:32 Visit Kraig Kan WAITER/WAITRESS ROOM SERVICE 350.1.13.10 ity of REGIONAL 4.2.7.2.686 Dave as MATERNAL [id number] Med ical & CHILD 369 [facility] 2020-05-13 2020-05-13 Outpatient R [facility] [id number] Univers 10:45:00 10:45:00 ity of [facility] 2020-05-13 2020-05-13 [facility] 1.2.840.114 [id number] Univers 00:00:00 00:00:00 Roshunda R WAITER/WAITRESS ROOM SERVICE 350.1.13.10 ity of REGIONAL [id number] Dave as MATERNAL [id number] Med ical & CHILD [address] [place] [address] 2020-04-16 2020-04-16 Patient Doctor [facility] 1.2.840.114 [id number] Univers 00:00:00 00:00:00 Secure Msg Unassigned, WAITER/WAITRESS ROOM SERVICE 350.1.13.10 ity of [place] REGIONAL 4.2.7.2.686 Dave as MATERNAL [id number] [facility] & CHILD [address] [place] [address] 2020-04-14 2020-04-14 Routine [facility] 1.2.840.114 [id number] Univers 15:52:32 16:24:52 Roshunda R WAITER/WAITRESS ROOM SERVICE 350.1.13.10 ity of Visit REGIONAL 4.2.7.2.686 Dave as MATERNAL [id number] [facility] & CHILD [address] [place] [address] 2020-04-14 2020-04-14 Outpatient R ROBLEY [facility] [id number] Univers 15:45:00 15:45:00 ROSMARIPOSANDA ity o f [facility] 2020-04-07 2020-04-07 Outpatient [facility] [id number] Univers 10:30:00 10:30:00 ROSHUNDA ity o f [facility] 2020-04-04 2020-04-04 Telephone [facility] [id number] [id number] Univers 00:00:00 00:00:00 Roshunda R WAITER/WAITRESS ROOM SERVICE [id number] ity of REGIONAL [id number] Dave as MATERNAL [id number] [facility] CHILD [address] [place] [address] 2020-03-27 2020-03-27 Outpatient R [facility] [id number] Univers 10:30:00 10:30:00 FELICITAS knapp of [facility] 2020-03-27 2020-03-27 TelemedicStephen GuzmanEhh-Iatyz-Oq/High [facility] [id number] Univers 08:51:09 09:06:09 ne Visit Felicitas Vuong WAITER/WAITRESS ROOM SERVICE [id number] ity of REGIONAL [id number] Dave as MATERNAL [id number] Med ical & CHILD [address] [place] [address] 2020-03-11 2020-03-11 [facility] [id number] Univers 13:30:00 13:30:00 ANNIE victor [facility] 2020-03-11 2020-03-11 [facility] 1.2.840.114 [id number] Univers 07:43:23 07:58:23 ne Visit Analorne Schmitt WAITER/WAITRESS ROOM SERVICE [id number] ity of [facility] [id number] Dave as MATERNAL [phone] Med ical & CHILD [address] [place] [address] 2020-03-05 2020-03-05 Patient Doctor [facility] 1.2.840.114 [id number] Univers 00:00:00 00:00:00 Secure Msg Unassigned, WAITER/WAITRESS ROOM SERVICE [id number] ity of [place] [facility] [id number] Dave as MATERNAL [phone] Med ical & CHILD [address] [place] [address] 2020-03-03 2020-03-03 Patient Doctor [facility] 1.2.840.114 [id number] Univers 00:00:00 00:00:00 Secure Msg Unassigned, WAITER/WAITRESS ROOM SERVICE [id number] ity of [place] [facility] [id number] Dave as MATERNAL [phone] [facility] ical & CHILD [address] [place] [address] 2020-02-20 2020-02-20 Outpatient [facility] [id number] Univers 13:15:00 13:15:00 ANNIE victor [facility] 2020-02-15 2020-02-15 Patient Doctor [facility] 1.2.840.114 [id number] Univers 00:00:00 00:00:00 Secure Msg Unassigned, WAITER/WAITRESS ROOM SERVICE [id number] ity of [place] [facility] [id number] Dave as MATERNAL [phone] [facility] ical & CHILD [address] [place] [address] 2020-02-13 2020-02-13 Initial [facility] 1.2.840.114 [id number] Univers 10:21:32 11:23:31 Roshunda R WAITER/WAITRESS ROOM SERVICE [id number] ity of Visit [facility] [id number] Dave as MATERNAL [phone] [facility] & CHILD [address] [place] [address] 2020-02-13 2020-02-13 [facility] [id number] Univers 09:45:00 09:45:00 ROSMARIPOSANDA aria o f [facility] 2020-02-13 2020-02-13 Orders Doctor TASHA 1.2.840.114 [id number] Univers 00:00:00 00:00:00 Only Unassigned, ARUN [id number] ity of [place] [facility] [id number] Dave as [phone] Results Test Description Test Time Test Comments Results Result Comments Source CHEMISTRY 2023-02-17 10:39:00 Test Item Value Reference Range Interpretation Comme nts CO2 (test code = CO2) 24 24-32 [facility]ncpldzUYPPPBYVW2216-81-40 10:39:00 Test Item Value Reference Range Interpretation Comments Calcium Lvl (test code = Calcium Lvl) 9.1 8.5-10.5 [facility]villeQzycddkBUSYEQNQX7480-45-60 10:39:00 Test Item Value Reference Range Interpretation Comments Total Protein (test code = Total 7.1 6.4-8.4 Protein) [facility]TjwbfqiEYCNVHTIG3344-06-28 10:39:00 Test Item Value Reference Range Interpretation Comments Albumin Lvl (test code = Albumin Lvl) 3.5 3.5-5.0 [facility]villeIyxvgvxOLPVTSHZN1759-20-08 10:39:00 Test Item Value Reference Range Interpretation Comments ALT (test code = ALT) 58 See_Comment [Auto mated message] The system which ge nerated this result transmit jessie reference range : <=65. The reference range was not used to interpr et this result as mary l/abnormal. [facility] BjjorieSOEPXFWIS2025-27-60 10:39:00 Test Item Value Reference Range Interpretation Comments AST (test code = AST) 30 See_Comment [Auto mated message] The system which ge nerated this result transmit jessie reference range : <=37. The reference range was not used to interpr et this result as mary l/abnormal. Decision PaceHgopellMLFXMWKED9107-14-93 10:39:00 Test Item Value Reference Range Interpretation Comments Alk Phos (test code = Alk Phos) 81 39-136 [facility] UsetbyoBYWEDZCMM9155-20-99 10:39:00 Test Item Value Reference Range Interpretation Comments Bili Total (test code = Bili Total) 0.5 0.2-1.3 [facility] BjnzzgoXLGYNYJRJ2588-75-92 10:39:00 Test Item Value Reference Range Interpretation Comments AGAP (test code = AGAP) 9.3 10.0-20.0 [facility] OoiyzkhKWMWZKPZV3874-68-82 10:39:00 Test Item Value Reference Range Interpretation Comments B/C Ratio (test code = B/C Ratio) 14 1 6-25 [facility] FsgkwgrJCRITYYZJ4547-44-19 10:39:00 Test Item Value Reference Range Interpretation Comments Globulin (test code = Globulin) 3.6 2.7-4.2 [facility] LvrqmqlVPWIXEZMN5067-16-04 10:39:00 Test Item Value Reference Range Interpretation Comments A/G Ratio (test code = A/G Ratio) 1.0 1 0.7-1.6 [facility] UeiuzspFMCDQPBPJ1518-69-50 10:39:00 Test Item Value Reference Range Interpretation Comments eGFR (test code = eGFR) 129 [facility] SmrujruGWEOCUFRWF8031-08-01 10:39:00 Test Item Value Reference Range Interpretation Comments Segs (test code = Segs) 68.1 45.0-75.0 [facility] YwfctlbDIMRITZQKD8134-26-35 10:39:00 Test Item Value Reference Range Interpretation Comments Lymphocytes (test code = Lymphocytes) 23.0 20.0-40.0 [facility] PylkatbCZOVKPSGUU9887-43-35 10:39:00 Test Item Value Reference Range Interpretation Comments Monocytes (test code = Monocytes) 8.1 2.0-12.0 [facility]QnzfeydZPVQSACLFT7070-02-87 10:39:00 Test Item Value Reference Range Interpretation Comments Eosinophils (test code = 0.2 See_Comment [A utomated message] The Eosinophils) system which ge nerated this result tra nsmitted reference range : <=4.0. The reference r marleen was not used to int erpret this result as normal/abnormal . [facility]fieldEieddakCNMXGSFTJM7056-85-10 10:39:00 Test Item Value Reference Range Interpretation Comments Basophils (test code = 0.6 See_Comment [Aut omated message] The Basophils) system which ge nerated this result tra nsmitted reference range : <=1.0. The reference r marleen was not used to int erpret this result as normal/abnormal . [facility]fieldDuapicdGAQYQHKFPS8451-10-77 10:39:00 Test Item Value Reference Range Interpretation Comments Neutrophils # (test code = Neutrophils 5.1 1.5-8.1 #) [facility]fieldIthdvekGZONBPQGND3560-10-87 10:39:00 Test Item Value Reference Range Interpretation Comments Lymphocytes # (test code = Lymphocytes 1.7 1.0-5.5 #) [facility]fieldDbeonoaFMDNEUIDUT0342-67-10 10:39:00 Test Item Value Reference Range Interpretation Comments Monocytes # (test code 0.6 See_Comment [Aut omated message] The = Monocytes #) system which generated this result tra nsmitted reference range : <=0.8. The reference r marleen was not used to int erpret this result as normal/abnormal . [facility]fieldLmkidgaIYJODCXYID9160-29-20 10:39:00 Test Item Value Reference Range Interpretation Comments WBC (test code = WBC) 7.5 3.7-10.4 [facility]QpdyxhjRBIRROVGIT0587-46-87 10:39:00 Test Item Value Reference Range Interpretation Comments RBC (test code = RBC) 3.95 4.20-5.40 [place] 074433-04-20 10:39:00 Test Item Value Reference Range Interpretation Comments Hgb (test code = Hgb) 12.2 12.0-16.0 [facility]fieldAsenvmoCRYYEPHFPF8305-06-15 10:39:00 Test Item Value Reference Range Interpretation Comments Hct (test code = Hct) 36.2 36.0-48.0 [facility]fieldMknmbdzHGLTFFJUTV8340-76-76 10:39:00 Test Item Value Reference Range Interpretation Comments MCV (test code = MCV) 91.6 80.0-98.0 [facility]fieldIqohcmhVICPDYETIU5608-62-16 10:39:00 Test Item Value Reference Range Interpretation Comments MCH (test code = MCH) 30.9 pg 27.0-31.0 [facility]fieldXkunapwCGKBHFDNFR5266-30-83 10:39:00 Test Item Value Reference Range Interpretation Comments MCHC (test code = MCHC) 33.7 32.0-36.0 [facility]fieldHkqrcxwTFOOUOQSAZ0207-34-53 10:39:00 Test Item Value Reference Range Interpretation Comments RDW (test code = RDW) 13.1 11.5-14.5 [facility]fieldJpguqkhVOQYWPFFLJ4043-52-56 10:39:00 Test Item Value Reference Range Interpretation Comments Platelet (test code = Platelet) 326 133-450 [facility]fieldMcaepbnJECMCQNFUS5396-85-35 10:39:00 Test Item Value Reference Range Interpretation Comments MPV (test code = MPV) 7.6 7.4-10.4 [facility] ResourcesTazlzofHONDYNLZV3080-68-28 10:39:00 Test Item Value Reference Range Interpretation Comments Glucose Lvl (test code = Glucose Lvl) 111 70-99 [facility] ResourcesRakutqwNWEYDEYEM5657-91-60 10:39:00 Test Item Value Reference Range Interpretation Comments BUN (test code = BUN) 7 7-22 [facility] ResourcesPlniydjHDNPOSLKW8976-53-70 10:39:00 Test Item Value Reference Range Interpretation Comments Creatinine Lvl (test code = Creatinine 0.51 0.50-1.40 Lvl) [facility] ResourcesMhswtpdHUPHVFDIQ1977-30-35 10:39:00 Test Item Value Reference Range Interpretation Comments Sodium Lvl (test code = Sodium Lvl) 141 135-145 [facility] ResourcesZsaukzdXJYUMQOEY7184-13-93 10:39:00 Test Item Value Reference Range Interpretation Comments Potassium Lvl (test code = Potassium 3.3 3.5-5.1 Lvl) [facility] ResourcesVfxfxryXACHYFWIH1269-83-95 10:39:00 Test Item Value Reference Range Interpretation Comments Chloride Lvl (test code = Chloride Lvl) 111 95-109 [place] 661023-04-20 10:39:00 Test Item Value Reference Range Interpretation Comments CO2 (test code = CO2) 24 24-32 [facility]villeLakqfraQDGJKTBBK9423-45-66 10:39:00 Test Item Value Reference Range Interpretation Comments Calcium Lvl (test code = Calcium Lvl) 9.1 8.5-10.5 [facility]villePfmsssyNUXDOKSUZ7914-67-56 10:39:00 Test Item Value Reference Range Interpretation Comments Total Protein (test code = Total 7.1 6.4-8.4 Protein) [facility]villeFjdukgtVVOPJGCPZ0929-07-48 10:39:00 Test Item Value Reference Range Interpretation Comments Albumin Lvl (test code = Albumin Lvl) 3.5 3.5-5.0 [facility] GreenvilleEntybloXSFVZKHHE1468-91-11 10:39:00 Test Item Value Reference Range Interpretation Comments ALT (test code = ALT) 58 See_Comment [Auto mated message] The system which Gamisfaction nerated this result transmit jessie reference range : <=65. The reference range was not used to interpr et this result as mary l/abnormal. [facility] GreenvilleQzzacwqIFFXHZKQN8934-00-42 10:39:00 Test Item Value Reference Range Interpretation Comments AST (test code = AST) 30 See_Comment [Auto mated message] The system which ge nerated this result transmit jessie reference range : <=37. The reference range was not used to interpr et this result as mary l/abnormal. [facility] GreenvilleUyvlzsxEUZLIAMYD4648-87-80 10:39:00 Test Item Value Reference Range Interpretation Comments Alk Phos (test code = Alk Phos) 81 39-136 [facility] GreenvilleBcnghnlZTIWXZLHF2035-49-92 10:39:00 Test Item Value Reference Range Interpretation Comments Bili Total (test code = Bili Total) 0.5 0.2-1.3 [facility] GreenvilleTkytdtwEMLXIWDUL0809-18-22 10:39:00 Test Item Value Reference Range Interpretation Comments AGAP (test code = AGAP) 9.3 10.0-20.0 [facility] GreenvilleAxzohtfRMCZDDERH5024-79-71 10:39:00 Test Item Value Reference Range Interpretation Comments B/C Ratio (test code = B/C Ratio) 14 1 6-25 [facility] GreenvilleFcfndndMYZMFVTYQ7390-90-30 10:39:00 Test Item Value Reference Range Interpretation Comments Globulin (test code = Globulin) 3.6 2.7-4.2 [facility]UwbrorhXBIDEFUFB1828-60-11 10:39:00 Test Item Value Reference Range Interpretation Comments A/G Ratio (test code = A/G Ratio) 1.0 1 0.7-1.6 [place] 661023-04-20 10:39:00 Test Item Value Reference Range Interpretation Comments eGFR (test code = eGFR) 129 [facility]fieldZmelrivHYRXURIOZN3923-61-47 10:39:00 Test Item Value Reference Range Interpretation Comments Segs (test code = Segs) 68.1 45.0-75.0 [place] 074433-04-20 10:39:00 Test Item Value Reference Range Interpretation Comments Lymphocytes (test code = Lymphocytes) 23.0 20.0-40.0 [facility]fieldIzkpuauMCXDNJXUXS9010-88-75 10:39:00 Test Item Value Reference Range Interpretation Comments Monocytes (test code = Monocytes) 8.1 2.0-12.0 [facility]fieldDcownsvKAIKXXXGXT9399-78-18 10:39:00 Test Item Value Reference Range Interpretation Comments Eosinophils (test code = 0.2 See_Comment [A utomated message] The Eosinophils) system which ge nerated this result tra nsmitted reference range : <=4.0. The reference r marleen was not used to int erpret this result as normal/abnormal . [facility]fieldZgrhgbdYOREZZDZMR5423-41-00 10:39:00 Test Item Value Reference Range Interpretation Comments Basophils (test code = 0.6 See_Comment [Aut omated message] The Basophils) system which ge nerated this result tra nsmitted reference range : <=1.0. The reference r marleen was not used to int erpret this result as normal/abnormal . [facility]fieldCtsfwknKUOGDFVHGD3354-50-29 10:39:00 Test Item Value Reference Range Interpretation Comments Neutrophils # (test code = Neutrophils 5.1 1.5-8.1 #) [facility]fieldRdnttdfUQANTDXFCR9983-46-98 10:39:00 Test Item Value Reference Range Interpretation Comments Lymphocytes # (test code = Lymphocytes 1.7 1.0-5.5 #) [facility]fieldEwfjfxfXRZDYRUQZX2545-81-85 10:39:00 Test Item Value Reference Range Interpretation Comments Monocytes # (test code 0.6 See_Comment [Aut omated message] The = Monocytes #) system which generated this result tra nsmitted reference range : <=0.8. The reference r marleen was not used to int erpret this result as normal/abnormal . [facility]fieldMqkpkpnJBEAHWWZIN6843-51-80 10:39:00 Test Item Value Reference Range Interpretation Comments WBC (test code = WBC) 7.5 3.7-10.4 [place] 074433-04-20 10:39:00 Test Item Value Reference Range Interpretation Comments RBC (test code = RBC) 3.95 4.20-5.40 [place] 074433-04-20 10:39:00 Test Item Value Reference Range Interpretation Comments Hgb (test code = Hgb) 12.2 12.0-16.0 [place] 074433-04-20 10:39:00 Test Item Value Reference Range Interpretation Comments Hct (test code = Hct) 36.2 36.0-48.0 [facility]fieldUpnkdddXTAYTCCKIF0964-05-13 10:39:00 Test Item Value Reference Range Interpretation Comments MCV (test code = MCV) 91.6 80.0-98.0 [facility]fieldCgboqwyVYTHVDFERX3393-88-56 10:39:00 Test Item Value Reference Range Interpretation Comments MCH (test code = MCH) 30.9 pg 27.0-31.0 [facility]fieldOukvvgjKAVDPQPHVT2725-51-50 10:39:00 Test Item Value Reference Range Interpretation Comments MCHC (test code = MCHC) 33.7 32.0-36.0 [facility]fieldOfokplyWCBZUZBXHM9912-24-92 10:39:00 Test Item Value Reference Range Interpretation Comments RDW (test code = RDW) 13.1 11.5-14.5 [facility]fieldZvlbbpcOIUBHGYTUQ8226-64-28 10:39:00 Test Item Value Reference Range Interpretation Comments Platelet (test code = Platelet) 326 133-450 [facility]fieldOnfalyiBBNOXHLYWL6104-94-53 10:39:00 Test Item Value Reference Range Interpretation Comments MPV (test code = MPV) 7.6 7.4-10.4 [facility] ResourcesHoxguxsYEBTGBKOL6945-18-80 10:39:00 Test Item Value Reference Range Interpretation Comments Glucose Lvl (test code = Glucose Lvl) 111 70-99 [facility] ResourcesFsvjuxaDHSZJDQLB6026-27-66 10:39:00 Test Item Value Reference Range Interpretation Comments BUN (test code = BUN) 7 - [facility] ResourcesHocgivlBUHSRILXD3147-25-77 10:39:00 Test Item Value Reference Range Interpretation Comments Creatinine Lvl (test code = Creatinine 0.51 0.50-1.40 Lvl) [facility] ResourcesCbqieesCDIICMZPM9482-03-98 10:39:00 Test Item Value Reference Range Interpretation Comments Glucose Lvl (test code = Glucose Lvl) 111 70-99 [facility] ResourcesRfqcycdKCYVMGISL2824-91-96 10:39:00 Test Item Value Reference Range Interpretation Comments BUN (test code = BUN) 7 - [facility] ResourcesYlggydtLCCQGIQFM3663-75-24 10:39:00 Test Item Value Reference Range Interpretation Comments Creatinine Lvl (test code = Creatinine 0.51 0.50-1.40 Lvl) [facility] ResourcesTibkfdjKGDUILRNW3431-30-78 10:39:00 Test Item Value Reference Range Interpretation Comments Sodium Lvl (test code = Sodium Lvl) 141 135-145 [facility] ResourcesJuvbwdkOSOZIMMNK1080-85-92 10:39:00 Test Item Value Reference Range Interpretation Comments Potassium Lvl (test code = Potassium 3.3 3.5-5.1 Lvl) [facility] ResourcesBmsvcnmPZZZBOCNK7240-46-63 10:39:00 Test Item Value Reference Range Interpretation Comments Chloride Lvl (test code = Chloride Lvl) 111 95-109 [facility] ResourcesLxssenmZDAZFTLMI9180-12-68 10:39:00 Test Item Value Reference Range Interpretation Comments CO2 (test code = CO2) 24 24-32 [facility] ResourcesVswjfrwYCQCSLNGV3832-44-29 10:39:00 Test Item Value Reference Range Interpretation Comments Sodium Lvl (test code = Sodium Lvl) 141 135-145 [facility] ResourcesNuchlpfSUKOAIHPU1092-85-17 10:39:00 Test Item Value Reference Range Interpretation Comments Calcium Lvl (test code = Calcium Lvl) 9.1 8.5-10.5 [facility] ResourcesKawfxqiCNMIAFKTN4451-78-01 10:39:00 Test Item Value Reference Range Interpretation Comments Total Protein (test code = Total 7.1 6.4-8.4 Protein) [facility] ResourcesUumnhyaJWBOHUXZK6970-94-98 10:39:00 Test Item Value Reference Range Interpretation Comments Albumin Lvl (test code = Albumin Lvl) 3.5 3.5-5.0 [facility] ResourcesFlenwnnPRKDVGZSF5496-50-27 10:39:00 Test Item Value Reference Range Interpretation Comments ALT (test code = ALT) 58 See_Comment [Auto mated message] The system which ge nerated this result transmit jessie reference range : <=65. The reference range was not used to interpr et this result as mary l/abnormal. [employer] CorporationHuggznxWHHPGUWYE7955-76-34 10:39:00 Test Item Value Reference Range Interpretation Comments AST (test code = AST) 30 See_Comment [Auto mated message] The system which ge nerated this result transmit jessie reference range : <=37. The reference range was not used to interpr et this result as mary l/abnormal. [employer] CorporationCohtdztEHXVTRUFO8605-96-34 10:39:00 Test Item Value Reference Range Interpretation Comments Alk Phos (test code = Alk Phos) 81 39-136 [facility] FfylouxIYRJWYBYH9346-55-92 10:39:00 Test Item Value Reference Range Interpretation Comments Bili Total (test code = Bili Total) 0.5 0.2-1.3 [facility] XrmcwayGECJQOIZY5097-22-32 10:39:00 Test Item Value Reference Range Interpretation Comments AGAP (test code = AGAP) 9.3 10.0-20.0 [facility] PartyFlrasqiBFJQKDKOH6218-28-61 10:39:00 Test Item Value Reference Range Interpretation Comments B/C Ratio (test code = B/C Ratio) 14 1 6-25 [facility] AjdfbzjDOGOEXCUY9910-40-50 10:39:00 Test Item Value Reference Range Interpretation Comments Globulin (test code = Globulin) 3.6 2.7-4.2 [facility] NhbudjuMFCMGTDDA2339-94-57 10:39:00 Test Item Value Reference Range Interpretation Comments Potassium Lvl (test code = Potassium 3.3 3.5-5.1 Lvl) [facility] FpnyenbGDHJZVQRE2383-09-74 10:39:00 Test Item Value Reference Range Interpretation Comments A/G Ratio (test code = A/G Ratio) 1.0 1 0.7-1.6 [facility] TvptjyeZCRKBHPPJ5506-02-10 10:39:00 Test Item Value Reference Range Interpretation Comments eGFR (test code = eGFR) 129 [employer]IwxvwzxPZAZXXLRLE3090-80-14 10:39:00 Test Item Value Reference Range Interpretation Comments Segs (test code = Segs) 68.1 45.0-75.0 [facility]fieldFkzionbFBVBIYLHAY0506-41-32 10:39:00 Test Item Value Reference Range Interpretation Comments Lymphocytes (test code = Lymphocytes) 23.0 20.0-40.0 [facility]fieldGbkhyhkRLTKAVOVQT3744-48-09 10:39:00 Test Item Value Reference Range Interpretation Comments Monocytes (test code = Monocytes) 8.1 2.0-12.0 [facility]fieldQqcanmfCDJENHURUA4676-93-64 10:39:00 Test Item Value Reference Range Interpretation Comments Eosinophils (test code = 0.2 See_Comment [A utomated message] The Eosinophils) system which ge nerated this result tra nsmitted reference range : <=4.0. The reference r marleen was not used to int erpret this result as normal/abnormal . [facility]fieldUoaxxajWBCPWXJTUR6312-43-03 10:39:00 Test Item Value Reference Range Interpretation Comments Basophils (test code = 0.6 See_Comment [Aut omated message] The Basophils) system which ge nerated this result tra nsmitted reference range : <=1.0. The reference r marleen was not used to int erpret this result as normal/abnormal . [facility]fieldPlwcpplTCSLCSTAVO7265-61-37 10:39:00 Test Item Value Reference Range Interpretation Comments Neutrophils # (test code = Neutrophils 5.1 1.5-8.1 #) [facility]fieldKrvqaszEBCGJBZDIK2669-08-27 10:39:00 Test Item Value Reference Range Interpretation Comments Lymphocytes # (test code = Lymphocytes 1.7 1.0-5.5 #) [facility]fieldPgdyhasUAFHWTUHUK7304-62-03 10:39:00 Test Item Value Reference Range Interpretation Comments Monocytes # (test code 0.6 See_Comment [Aut omated message] The = Monocytes #) system which generated this result tra nsmitted reference range : <=0.8. The reference r marleen was not used to int erpret this result as normal/abnormal . [facility] ResourcesNcbzmimPXXBGBHJH0122-29-54 10:39:00 Test Item Value Reference Range Interpretation Comments Chloride Lvl (test code = Chloride Lvl) 111 95-109 [facility] MansfieldFaiakqaDXXJKTBXVC1188-25-03 10:39:00 Test Item Value Reference Range Interpretation Comments WBC (test code = WBC) 7.5 3.7-10.4 [place] [address]-04-20 10:39:00 Test Item Value Reference Range Interpretation Comments RBC (test code = RBC) 3.95 4.20-5.40 [place] 074433-04-20 10:39:00 Test Item Value Reference Range Interpretation Comments Hgb (test code = Hgb) 12.2 12.0-16.0 [place] [address]-04-20 10:39:00 Test Item Value Reference Range Interpretation Comments Hct (test code = Hct) 36.2 36.0-48.0 [place] 074433-04-20 10:39:00 Test Item Value Reference Range Interpretation Comments MCV (test code = MCV) 91.6 80.0-98.0 [place] [address]-04-20 10:39:00 Test Item Value Reference Range Interpretation Comments MCH (test code = MCH) 30.9 pg 27.0-31.0 [place] 074433-04-20 10:39:00 Test Item Value Reference Range Interpretation Comments MCHC (test code = MCHC) 33.7 32.0-36.0 [place] 074433-04-20 10:39:00 Test Item Value Reference Range Interpretation Comments RDW (test code = RDW) 13.1 11.5-14.5 [place] 074433-04-20 10:39:00 Test Item Value Reference Range Interpretation Comments Platelet (test code = Platelet) 326 133-450 [facility] [place]DsflrcnEZKZZVZFKP0063-21-23 10:39:00 Test Item Value Reference Range Interpretation Comments MPV (test code = MPV) 7.6 7.4-10.4 [facility]2023-04-19 13:23:00 Test Item Value Reference Range Interpretation Comments Glucose POC (test code = Glucose POC) 77 70-99 [facility]2023-04-19 13:23:00 Test Item Value Reference Range Interpretation Comments Gluc POC Comment 1 (test code Notified RN/MD = Gluc POC Comment 1) [place] 579743-04-19 13:23:00 Test Item Value Reference Range Interpretation Comments Glucose POC (test code = Glucose POC) 77 70-99 [facility]2023-04-19 13:23:00 Test Item Value Reference Range Interpretation Comments Gluc POC Comment 1 (test code Notified RN/MD = Gluc POC Comment 1) [place] 579743-04-19 13:23:00 Test Item Value Reference Range Interpretation Comments Glucose POC (test code = Glucose POC) 77 70-99 [place] 579743-04-19 13:23:00 Test Item Value Reference Range Interpretation Comments Gluc POC Comment 1 (test code Notified RN/MD = Gluc POC Comment 1) [place] [address]-04-19 13:02:00 Test Item Value Reference Range Interpretation Comments U Preg (test code = U Negative (02/16/23 8:02 Preg) AM) [address]04-19 13:02:00 Test Item Value Reference Range Interpretation Comments U Preg (test code = U Negative (02/16/23 8:02 Preg) AM) [address]04-19 13:02:00 Test Item Value Reference Range Interpretation Comments U Preg (test code = U Negative (02/16/23 8:02 Preg) AM) [place] [address]-04-13 15:40:00 Test Item Value Reference Range Interpretation Comments Lymphocytes # (test code = Lymphocytes 1.9 1.0-5.5 #) [facility]FbiqmlcSRWCGVZANP6039-[facility] 15:40:00 Test Item Value Reference Range Interpretation Comments Monocytes # (test code 0.5 See_Comment [Aut omated message] The = Monocytes #) system which generated this result tra nsmitted reference range : <=0.8. The reference r marleen was not used to int erpret this result as normal/abnormal . [facility]fieldPqeosmdVNKMEWENOW7831-45-28 15:40:00 Test Item Value Reference Range Interpretation Comments Eosinophils # (test code 0.1 See_Comment [A utomated message] The = Eosinophils #) system whic h generated this result tra nsmitted reference range : <=0.5. The reference r marleen was not used to int erpret this result as normal/abnormal . [place] 074433-04-13 15:40:00 Test Item Value Reference Range Interpretation Comments Basophils # (test code 0.1 See_Comment [Aut omated message] The = Basophils #) system which generated this result tra nsmitted reference range : <=0.2. The reference r marleen was not used to int erpret this result as normal/abnormal . [place] 074433-04-13 15:40:00 Test Item Value Reference Range Interpretation Comments WBC (test code = WBC) 6.7 3.7-10.4 [place] [address]-04-13 15:40:00 Test Item Value Reference Range Interpretation Comments RBC (test code = RBC) 4.36 4.20-5.40 [place] [address]-04-13 15:40:00 Test Item Value Reference Range Interpretation Comments Hgb (test code = Hgb) 13.6 12.0-16.0 [place] [address]-04-13 15:40:00 Test Item Value Reference Range Interpretation Comments Hct (test code = Hct) 40.3 36.0-48.0 [place] [address]-04-13 15:40:00 Test Item Value Reference Range Interpretation Comments MCV (test code = MCV) 92.4 80.0-98.0 [place] [address]-04-13 15:40:00 Test Item Value Reference Range Interpretation Comments MCH (test code = MCH) 31.1 pg 27.0-31.0 [facility]fieldAoudsksAALZWDPFCR0145-22-28 15:40:00 Test Item Value Reference Range Interpretation Comments MCHC (test code = MCHC) 33.6 32.0-36.0 [place] [address]-04-13 15:40:00 Test Item Value Reference Range Interpretation Comments RDW (test code = RDW) 13.2 11.5-14.5 [place] 074433-04-13 15:40:00 Test Item Value Reference Range Interpretation Comments Platelet (test code = Platelet) 401 133-450 [facility] MansfieldHsdybogNZUOOSLDDZ6379-59-07 15:40:00 Test Item Value Reference Range Interpretation Comments MPV (test code = MPV) 7.7 7.4-10.4 [place] [address]-04-13 15:40:00 Test Item Value Reference Range Interpretation Comments PT (test code = PT) 13.0 s 12.0-14.7 [place] 074433-04-13 15:40:00 Test Item Value Reference Range Interpretation Comments INR (test code = INR) 0.98 1 0.85-1.17 [facility]fieldYrsswrzYLZXPHZJSR7915-59-99 15:40:00 Test Item Value Reference Range Interpretation Comments PTT (test code = PTT) 27.1 s 22.9-35.8 [facility]fieldPoippyoOGDYAOMWIG7107-09-06 15:40:00 Test Item Value Reference Range Interpretation Comments Eosinophils # (test code 0.1 See_Comment [A utomated message] The = Eosinophils #) system whic h generated this result tra nsmitted reference range : <=0.5. The reference r marleen was not used to int erpret this result as normal/abnormal . [facility] MansfieldYsmtjonGDYDXKUYBP1466-60-74 15:40:00 Test Item Value Reference Range Interpretation Comments Basophils # (test code 0.1 See_Comment [Aut omated message] The = Basophils #) system which generated this result tra nsmitted reference range : <=0.2. The reference r marleen was not used to int erpret this result as normal/abnormal . [facility]fieldPuvdyljBEQVTVBCDQ9347-01-12 15:40:00 Test Item Value Reference Range Interpretation Comments PT (test code = PT) 13.0 s 12.0-14.7 [facility]fieldTqataovAVBTIGSBZW6521-54-58 15:40:00 Test Item Value Reference Range Interpretation Comments INR (test code = INR) 0.98 1 0.85-1.17 [facility] MansfieldWjdqmjuHZHBQTESSH5881-54-55 15:40:00 Test Item Value Reference Range Interpretation Comments PTT (test code = PTT) 27.1 s 22.9-35.8 [facility]LLW[facility]11[facility] 15:40:00 Test Item Value Reference Range Interpretation Comments Coronavirus (COVID-19) Not Detected (02/10/23 KARLO (test code = 10:40 AM) Coronavirus (COVID-19) KARLO) [facility]pc[facility]kmZEOFKKOIXM9265-41-84 15:40:00 Test Item Value Reference Range Interpretation Comments Coronavirus (COVID-19) Not Detected (02/10/23 KARLO (test code = 10:40 AM) Coronavirus (COVID-19) KARLO) [facility] AND [id number] 15:40:00 Test Item Value Reference Range Interpretation Comments UA Turbidity (test code = Clear (02/10/23 10:40 UA Turbidity) AM) [facility] AND [id number] 15:40:00 Test Item Value Reference Range Interpretation Comments UA Spec Grav (test code = UA Spec 1.020 1 Grav) [facility] AND [id number] 15:40:00 Test Item Value Reference Range Interpretation Comments UA pH (test code = UA pH) 5.0 1 5.0-8.0 [facility] AND [id number] 15:40:00 Test Item Value Reference Range Interpretation Comments UA Protein (test code = UA Negative mg/dL Protein) [facility] AND [id number] 15:40:00 Test Item Value Reference Range Interpretation Comments UA Glucose (test code = UA Negative mg/dL Glucose) [facility] AND [id number] 15:40:00 Test Item Value Reference Range Interpretation Comments UA Ketones (test code = UA Negative mg/dL Ketones) [facility] AND [id number] 15:40:00 Test Item Value Reference Range Interpretation Comments UA Bili (test code = Negative *NA*(02/10/23 UA Bili) 10:40 AM) [facility] AND [id number] 15:40:00 Test Item Value Reference Range Interpretation Comments UA Blood (test code = Small *ABN*(02/10/23 UA Blood) 10:40 AM) [facility] AND [id number] 15:40:00 Test Item Value Reference Range Interpretation Comments UA Nitrite (test code Negative (02/10/23 10:40 = UA Nitrite) AM) [facility] AND [id number] 15:40:00 Test Item Value Reference Range Interpretation Comments UA Leuk Est (test Negative (02/10/23 10:40 code = UA Leuk Est) AM) [facility] AND [id number] 15:40:00 Test Item Value Reference Range Interpretation Comments UA Ascorbic Acid (test Negative 2*NA*(02/10/23 code = UA Ascorbic 10:40 AM) Acid) [facility] AND [id number] 15:40:00 Test Item Value Reference Range Interpretation Comments UA Sq Epi (test code = UA Sq Occasional /LPF Epi) [facility] AND [id number] 15:40:00 Test Item Value Reference Range Interpretation Comments UA WBC (test code = 2 See_Comment [Automa jessie message] The UA WBC) system which ge nerated this result transmit jessie reference range : <=5. The reference range was not used to interpr et this result as mary l/abnormal. [facility] AND [id number] 15:40:00 Test Item Value Reference Range Interpretation Comments UA RBC (test code = 3 See_Comment [Automa jessie message] The UA RBC) system which ge nerated this result transmit jessie reference range : <=2. The reference range was not used to interpr et this result as mary l/abnormal. [facility] AND [id number] 15:40:00 Test Item Value Reference Range Interpretation Comments UA Color (test code = UA Color) Ltyellow [facility] AND [id number] 15:40:00 Test Item Value Reference Range Interpretation Comments UA Urobilinogen (test code = UA <=1.0 mg/dL 0.1-1.0 Urobilinogen) [facility] AND [id number] 15:40:00 Test Item Value Reference Range Interpretation Comments UA Turbidity (test code = Clear (02/10/23 10:40 UA Turbidity) AM) [facility] AND [id number] 15:40:00 Test Item Value Reference Range Interpretation Comments UA Spec Grav (test code = UA Spec 1.020 1 Grav) [facility] AND [id number] 15:40:00 Test Item Value Reference Range Interpretation Comments UA pH (test code = UA pH) 5.0 1 5.0-8.0 [facility] AND [id number] 15:40:00 Test Item Value Reference Range Interpretation Comments UA Protein (test code = UA Negative mg/dL Protein) [facility] AND [id number] 15:40:00 Test Item Value Reference Range Interpretation Comments UA Glucose (test code = UA Negative mg/dL Glucose) [facility] AND [id number] 15:40:00 Test Item Value Reference Range Interpretation Comments UA Ketones (test code = UA Negative mg/dL Ketones) [facility] AND [id number] 15:40:00 Test Item Value Reference Range Interpretation Comments UA Bili (test code = Negative *NA*(02/10/23 UA Bili) 10:40 AM) [facility] [id number] 15:40:00 Test Item Value Reference Range Interpretation Comments UA Blood (test code = Small *ABN*(02/10/23 UA Blood) 10:40 AM) [facility] [id number] 15:40:00 Test Item Value Reference Range Interpretation Comments UA Nitrite (test code Negative (02/10/23 10:40 = UA Nitrite) AM) [facility] [id number] 15:40:00 Test Item Value Reference Range Interpretation Comments UA Leuk Est (test Negative (02/10/23 10:40 code = UA Leuk Est) AM) [facility] [id number] 15:40:00 Test Item Value Reference Range Interpretation Comments UA Ascorbic Acid (test Negative 2*NA*(02/10/23 code = UA Ascorbic 10:40 AM) Acid) [facility] AND [id number] 15:40:00 Test Item Value Reference Range Interpretation Comments UA Sq Epi (test code = UA Sq Occasional /LPF Epi) [facility] AND [id number] 15:40:00 Test Item Value Reference Range Interpretation Comments UA WBC (test code = 2 See_Comment [Automa jessie message] The UA WBC) system which ge nerated this result transmit jessie reference range : <=5. The reference range was not used to interpr et this result as mary l/abnormal. [facility] AND [id number] 15:40:00 Test Item Value Reference Range Interpretation Comments UA RBC (test code = 3 See_Comment [Automa jessie message] The UA RBC) system which ge nerated this result transmit jessie reference range : <=2. The reference range was not used to interpr et this result as mary l/abnormal. [facility] AND [id number] 15:40:00 Test Item Value Reference Range Interpretation Comments UA Color (test code = UA Color) L[facility]ellow [facility] [id number] 15:40:00 Test Item Value Reference Range Interpretation Comments UA Urobilinogen (test code = UA <=1.0 mg/dL 0.1-1.0 Urobilinogen) [facility] [id number] 15:40:00 Test Item Value Reference Range Interpretation Comments U Preg (test code = U Negative (02/10/23 10:40 Preg) AM) [facility] [id number] 15:40:00 Test Item Value Reference Range Interpretation Comments Glucose Lvl (test code = Glucose Lvl) 97 70-99 [facility] [id number] 15:40:00 Test Item Value Reference Range Interpretation Comments BUN (test code = BUN) 18 7-22 [facility]2023-04-13 15:40:00 Test Item Value Reference Range Interpretation Comments Creatinine Lvl (test code = Creatinine 0.60 0.50-1.40 Lvl) [place] 416383-04-13 15:40:00 Test Item Value Reference Range Interpretation Comments Sodium Lvl (test code = Sodium Lvl) 136 135-145 [place] 416383-04-13 15:40:00 Test Item Value Reference Range Interpretation Comments Potassium Lvl (test code = Potassium 3.6 3.5-5.1 Lvl) [facility]2023-04-13 15:40:00 Test Item Value Reference Range Interpretation Comments Chloride Lvl (test code = Chloride Lvl) 109 95-109 [place] 416383-04-13 15:40:00 Test Item Value Reference Range Interpretation Comments CO2 (test code = CO2) 24 24-32 [place] 416383-04-13 15:40:00 Test Item Value Reference Range Interpretation Comments Calcium Lvl (test code = Calcium Lvl) 9.4 8.5-10.5 [place] 416383-04-13 15:40:00 Test Item Value Reference Range Interpretation Comments Total Protein (test code = Total 7.6 6.4-8.4 Protein) [place] 416383-04-13 15:40:00 Test Item Value Reference Range Interpretation Comments Albumin Lvl (test code = Albumin Lvl) 3.7 3.5-5.0 [place] 416383-04-13 15:40:00 Test Item Value Reference Range Interpretation Comments ALT (test code = ALT) 46 See_Comment [Auto mated message] The system which ge nerated this result transmit jessie reference range : <=65. The reference range was not used to interpr et this result as mary l/abnormal. [facility] [id number] 15:40:00 Test Item Value Reference Range Interpretation Comments AST (test code = AST) 17 See_Comment [Auto mated message] The system which ge nerated this result transmit jessie reference range : <=37. The reference range was not used to interpr et this result as mary l/abnormal. [facility] [id number] 15:40:00 Test Item Value Reference Range Interpretation Comments Alk Phos (test code = Alk Phos) 77 39-136 [facility] [id number] 15:40:00 Test Item Value Reference Range Interpretation Comments Bili Total (test code = Bili Total) 0.3 0.2-1.3 [place] 416383-04-13 15:40:00 Test Item Value Reference Range Interpretation Comments AGAP (test code = AGAP) 6.6 10.0-20.0 [place] 416383-04-13 15:40:00 Test Item Value Reference Range Interpretation Comments B/C Ratio (test code = B/C Ratio) 30 1 6-25 [place] 416383-04-13 15:40:00 Test Item Value Reference Range Interpretation Comments Globulin (test code = Globulin) 3.9 2.7-4.2 [facility] [id number] 15:40:00 Test Item Value Reference Range Interpretation Comments A/G Ratio (test code = A/G Ratio) 0.9 1 0.7-1.6 [facility] [id number] 15:40:00 Test Item Value Reference Range Interpretation Comments eGFR (test code = eGFR) 125 [facility]villeLfbmwmmBLJOCHUQMT7548-68-76 15:40:00 Test Item Value Reference Range Interpretation Comments Segs (test code = Segs) 62.0 45.0-75.0 [place] [address]-04-13 15:40:00 Test Item Value Reference Range Interpretation Comments Lymphocytes (test code = Lymphocytes) 28.3 20.0-40.0 [facility]villeNmtkgucGZDDLMRZEU9861-99-11 15:40:00 Test Item Value Reference Range Interpretation Comments Monocytes (test code = Monocytes) 6.9 2.0-12.0 [facility] TtvtpseTDQJWCGQYJ6611-07-61 15:40:00 Test Item Value Reference Range Interpretation Comments Eosinophils (test code = 2.0 See_Comment [A utomated message] The Eosinophils) system which ge nerated this result tra nsmitted reference range : <=4.0. The reference r marleen was not used to int erpret this result as normal/abnormal . [place] [address]-04-13 15:40:00 Test Item Value Reference Range Interpretation Comments Basophils (test code = 0.8 See_Comment [Aut omated message] The Basophils) system which ge nerated this result tra nsmitted reference range : <=1.0. The reference r marleen was not used to int erpret this result as normal/abnormal . [place] [address]-04-13 15:40:00 Test Item Value Reference Range Interpretation Comments Neutrophils # (test code = Neutrophils 4.2 1.5-8.1 #) [place] [address]-04-13 15:40:00 Test Item Value Reference Range Interpretation Comments Basophils (test code = 0.8 See_Comment [Aut omated message] The Basophils) system which ge nerated this result tra nsmitted reference range : <=1.0. The reference r marleen was not used to int erpret this result as normal/abnormal . [place] [address]-04-13 15:40:00 Test Item Value Reference Range Interpretation Comments Neutrophils # (test code = Neutrophils 4.2 1.5-8.1 #) [place] [address]-04-13 15:40:00 Test Item Value Reference Range Interpretation Comments Lymphocytes # (test code = Lymphocytes 1.9 1.0-5.5 #) [place] [address]-04-13 15:40:00 Test Item Value Reference Range Interpretation Comments Monocytes # (test code 0.5 See_Comment [Aut omated message] The = Monocytes #) system which generated this result tra nsmitted reference range : <=0.8. The reference r marleen was not used to int erpret this result as normal/abnormal . [place] [address]-04-13 15:40:00 Test Item Value Reference Range Interpretation Comments Eosinophils # (test code 0.1 See_Comment [A utomated message] The = Eosinophils #) system whic h generated this result tra nsmitted reference range : <=0.5. The reference r marleen was not used to int erpret this result as normal/abnormal . [id number] 15:40:00 Test Item Value Reference Range Interpretation Comments Basophils # (test code 0.1 See_Comment [Aut omated message] The = Basophils #) system which generated this result tra nsmitted reference range : <=0.2. The reference r marleen was not used to int erpret this result as normal/abnormal . [facility]fieldPzfzrqwZBYIOEIKTI3981-91-71 15:40:00 Test Item Value Reference Range Interpretation Comments WBC (test code = WBC) 6.7 3.7-10.4 [facility]fieldAasjbeiPAMEQRIDCO7734-38-57 15:40:00 Test Item Value Reference Range Interpretation Comments RBC (test code = RBC) 4.36 4.20-5.40 [facility]fieldXnawalwGVUOYALQIK1264-68-43 15:40:00 Test Item Value Reference Range Interpretation Comments Hgb (test code = Hgb) 13.6 12.0-16.0 [facility]fieldPbtzsaxHBSMRZYOIB2301-20-11 15:40:00 Test Item Value Reference Range Interpretation Comments Hct (test code = Hct) 40.3 36.0-48.0 [facility]fieldXkncewrJMTKQFQNWR4916-54-12 15:40:00 Test Item Value Reference Range Interpretation Comments MCV (test code = MCV) 92.4 80.0-98.0 [facility]fieldLojidimXAPETVMDRE4760-56-50 15:40:00 Test Item Value Reference Range Interpretation Comments MCH (test code = MCH) 31.1 pg 27.0-31.0 [facility]fieldKkwmrowKDFAJOPUAA1716-50-63 15:40:00 Test Item Value Reference Range Interpretation Comments MCHC (test code = MCHC) 33.6 32.0-36.0 [facility]fieldUriikgxRWVGXWAGLF5027-47-52 15:40:00 Test Item Value Reference Range Interpretation Comments RDW (test code = RDW) 13.2 11.5-14.5 [place] 074433-04-13 15:40:00 Test Item Value Reference Range Interpretation Comments Platelet (test code = Platelet) 401 133-450 [facility]fieldXnpkwcwETHVZUJASN2777-82-22 15:40:00 Test Item Value Reference Range Interpretation Comments MPV (test code = MPV) 7.7 7.4-10.4 [facility] MansfieldPtottgqSLCRZWODFI8495-61-37 15:40:00 Test Item Value Reference Range Interpretation Comments PT (test code = PT) 13.0 s 12.0-14.7 [facility] MansfieldSkizdamONHIERKHSK8795-09-93 15:40:00 Test Item Value Reference Range Interpretation Comments INR (test code = INR) 0.98 1 0.85-1.17 [facility]fieldDnvozsxKEHSSVEYFR7794-44-86 15:40:00 Test Item Value Reference Range Interpretation Comments PTT (test code = PTT) 27.1 s 22.9-35.8 [facility]fieldGtvzzyoPSQURYCRVJ0504-02-02 15:40:00 Test Item Value Reference Range Interpretation Comments Eosinophils # (test code 0.1 See_Comment [A utomated message] The = Eosinophils #) system whic h generated this result tra nsmitted reference range : <=0.5. The reference r marleen was not used to int erpret this result as normal/abnormal . [facility]fieldTfgqdlgKAETQTFYLE7600-79-08 15:40:00 Test Item Value Reference Range Interpretation Comments Basophils # (test code 0.1 See_Comment [Aut omated message] The = Basophils #) system which generated this result tra nsmitted reference range : <=0.2. The reference r marleen was not used to int erpret this result as normal/abnormal . [facility] MansfieldWekrxhxGXRIZUVKBJ3825-89-73 15:40:00 Test Item Value Reference Range Interpretation Comments PT (test code = PT) 13.0 s 12.0-14.7 [facility]fieldAepbzoePUGQCTFGQG2541-33-15 15:40:00 Test Item Value Reference Range Interpretation Comments INR (test code = INR) 0.98 1 0.85-1.17 [place] 074433-04-13 15:40:00 Test Item Value Reference Range Interpretation Comments PTT (test code = PTT) 27.1 s 22.9-35.8 [place] [address]-04-13 15:40:00 Test Item Value Reference Range Interpretation Comments Coronavirus (COVID-19) Not Detected (02/10/23 KARLO (test code = 10:40 AM) Coronavirus (COVID-19) KARLO) [place] [id number] 15:40:00 Test Item Value Reference Range Interpretation Comments Coronavirus (COVID-19) Not Detected (02/10/23 KARLO (test code = 10:40 AM) Coronavirus (COVID-19) KARLO) [facility] AND [id number] 15:40:00 Test Item Value Reference Range Interpretation Comments UA Turbidity (test code = Clear (02/10/23 10:40 UA Turbidity) AM) [facility] AND [id number] 15:40:00 Test Item Value Reference Range Interpretation Comments UA Spec Grav (test code = UA Spec 1.020 1 Grav) [facility] AND [id number] 15:40:00 Test Item Value Reference Range Interpretation Comments UA pH (test code = UA pH) 5.0 1 5.0-8.0 [facility] AND [id number] 15:40:00 Test Item Value Reference Range Interpretation Comments UA Protein (test code = UA Negative mg/dL Protein) [facility] AND [id number] 15:40:00 Test Item Value Reference Range Interpretation Comments UA Glucose (test code = UA Negative mg/dL Glucose) [facility] AND [id number] 15:40:00 Test Item Value Reference Range Interpretation Comments UA Ketones (test code = UA Negative mg/dL Ketones) [facility] AND [id number] 15:40:00 Test Item Value Reference Range Interpretation Comments UA Bili (test code = Negative *NA*(02/10/23 UA Bili) 10:40 AM) [facility] AND [id number] 15:40:00 Test Item Value Reference Range Interpretation Comments UA Blood (test code = Small *ABN*(02/10/23 UA Blood) 10:40 AM) [facility] AND [id number] 15:40:00 Test Item Value Reference Range Interpretation Comments UA Nitrite (test code Negative (02/10/23 10:40 = UA Nitrite) AM) [facility] AND [id number] 15:40:00 Test Item Value Reference Range Interpretation Comments UA Leuk Est (test Negative (02/10/23 10:40 code = UA Leuk Est) AM) [facility] AND [id number] 15:40:00 Test Item Value Reference Range Interpretation Comments UA Ascorbic Acid (test Negative 2*NA*(02/10/23 code = UA Ascorbic 10:40 AM) Acid) [facility] [id number] 15:40:00 Test Item Value Reference Range Interpretation Comments UA Sq Epi (test code = UA Sq Occasional /LPF Epi) [facility] [id number] 15:40:00 Test Item Value Reference Range Interpretation Comments UA WBC (test code = 2 See_Comment [Automa jessie message] The UA WBC) system which ge nerated this result transmit jessie reference range : <=5. The reference range was not used to interpr et this result as mary l/abnormal. [facility] Сергей AND [id number] 15:40:00 Test Item Value Reference Range Interpretation Comments UA RBC (test code = 3 See_Comment [Automa jessie message] The UA RBC) system which ge nerated this result transmit jessie reference range : <=2. The reference range was not used to interpr et this result as mary l/abnormal. [facility] [id number] 15:40:00 Test Item Value Reference Range Interpretation Comments UA Color (test code = UA Color) Ltyellow [facility] [id number] 15:40:00 Test Item Value Reference Range Interpretation Comments UA Urobilinogen (test code = UA <=1.0 mg/dL 0.1-1.0 Urobilinogen) [facility] [id number] 15:40:00 Test Item Value Reference Range Interpretation Comments UA Turbidity (test code = Clear (02/10/23 10:40 UA Turbidity) AM) [facility] [id number] 15:40:00 Test Item Value Reference Range Interpretation Comments UA Spec Grav (test code = UA Spec 1.020 1 Grav) [facility] AND [id number] 15:40:00 Test Item Value Reference Range Interpretation Comments UA pH (test code = UA pH) 5.0 1 5.0-8.0 [facility] [id number] 15:40:00 Test Item Value Reference Range Interpretation Comments UA Protein (test code = UA Negative mg/dL Protein) [facility] AND [id number] 15:40:00 Test Item Value Reference Range Interpretation Comments UA Glucose (test code = UA Negative mg/dL Glucose) [facility] AND [id number] 15:40:00 Test Item Value Reference Range Interpretation Comments UA Ketones (test code = UA Negative mg/dL Ketones) [facility] AND [id number] 15:40:00 Test Item Value Reference Range Interpretation Comments UA Bili (test code = Negative *NA*(02/10/23 UA Bili) 10:40 AM) [facility] AND [id number] 15:40:00 Test Item Value Reference Range Interpretation Comments UA Blood (test code = Small *ABN*(02/10/23 UA Blood) 10:40 AM) [facility] AND [id number] 15:40:00 Test Item Value Reference Range Interpretation Comments UA Nitrite (test code Negative (02/10/23 10:40 = UA Nitrite) AM) [facility] AND [id number] 15:40:00 Test Item Value Reference Range Interpretation Comments UA Leuk Est (test Negative (02/10/23 10:40 code = UA Leuk Est) AM) [facility] AND [id number] 15:40:00 Test Item Value Reference Range Interpretation Comments UA Ascorbic Acid (test Negative 2*NA*(02/10/23 code = UA Ascorbic 10:40 AM) Acid) [facility] AND [id number] 15:40:00 Test Item Value Reference Range Interpretation Comments UA Sq Epi (test code = UA Sq Occasional /LPF Epi) [facility] AND [id number] 15:40:00 Test Item Value Reference Range Interpretation Comments UA WBC (test code = 2 See_Comment [Automa jessie message] The UA WBC) system which ge nerated this result transmit jessie reference range : <=5. The reference range was not used to interpr et this result as mary l/abnormal. [facility] AND [id number] 15:40:00 Test Item Value Reference Range Interpretation Comments UA RBC (test code = 3 See_Comment [Automa jessie message] The UA RBC) system which ge nerated this result transmit jessie reference range : <=2. The reference range was not used to interpr et this result as mary l/abnormal. [facility] AND [id number] 15:40:00 Test Item Value Reference Range Interpretation Comments UA Color (test code = UA Color) Ltyellow [facility] AND [id number] 15:40:00 Test Item Value Reference Range Interpretation Comments UA Urobilinogen (test code = UA <=1.0 mg/dL 0.1-1.0 Urobilinogen) [facility] [id number] 15:40:00 Test Item Value Reference Range Interpretation Comments U Preg (test code = U Negative (02/10/23 10:40 Preg) AM) [facility]2023-04-13 15:40:00 Test Item Value Reference Range Interpretation Comments Glucose Lvl (test code = Glucose Lvl) 97 70-99 [facility]2023-04-13 15:40:00 Test Item Value Reference Range Interpretation Comments BUN (test code = BUN) 18 7-22 [facility]2023-04-13 15:40:00 Test Item Value Reference Range Interpretation Comments Creatinine Lvl (test code = Creatinine 0.60 0.50-1.40 Lvl) [facility]2023-04-13 15:40:00 Test Item Value Reference Range Interpretation Comments Sodium Lvl (test code = Sodium Lvl) 136 135-145 [facility]2023-04-13 15:40:00 Test Item Value Reference Range Interpretation Comments Potassium Lvl (test code = Potassium 3.6 3.5-5.1 Lvl) [facility]2023-04-13 15:40:00 Test Item Value Reference Range Interpretation Comments Chloride Lvl (test code = Chloride Lvl) 109 95-109 [facility]2023-04-13 15:40:00 Test Item Value Reference Range Interpretation Comments CO2 (test code = CO2) 24 24-32 [facility]2023-04-13 15:40:00 Test Item Value Reference Range Interpretation Comments Calcium Lvl (test code = Calcium Lvl) 9.4 8.5-10.5 [place] [id number] 15:40:00 Test Item Value Reference Range Interpretation Comments Total Protein (test code = Total 7.6 6.4-8.4 Protein) [facility]2023-04-13 15:40:00 Test Item Value Reference Range Interpretation Comments Albumin Lvl (test code = Albumin Lvl) 3.7 3.5-5.0 [facility] [place] 2 [id number] 15:40:00 Test Item Value Reference Range Interpretation Comments ALT (test code = ALT) 46 See_Comment [Auto mated message] The system which ge nerated this result transmit jessie reference range : <=65. The reference range was not used to interpr et this result as mary l/abnormal. [facility] [place] 2 [id number] 15:40:00 Test Item Value Reference Range Interpretation Comments AST (test code = AST) 17 See_Comment [Auto mated message] The system which ge nerated this result transmit jessie reference range : <=37. The reference range was not used to interpr et this result as mary l/abnormal. [facility] [place] [facility] [id number] 15:40:00 Test Item Value Reference Range Interpretation Comments Alk Phos (test code = Alk Phos) 77 39-136 [facility] [place] 2 [id number] 15:40:00 Test Item Value Reference Range Interpretation Comments Bili Total (test code = Bili Total) 0.3 0.2-1.3 [facility] [place] 2 [id number] 15:40:00 Test Item Value Reference Range Interpretation Comments AGAP (test code = AGAP) 6.6 10.0-20.0 [facility] [place] 2 [id number] 15:40:00 Test Item Value Reference Range Interpretation Comments B/C Ratio (test code = B/C Ratio) 30 1 6-25 [facility] [place] [id number] 15:40:00 Test Item Value Reference Range Interpretation Comments Globulin (test code = Globulin) 3.9 2.7-4.2 [facility] [place] 2 [id number] 15:40:00 Test Item Value Reference Range Interpretation Comments A/G Ratio (test code = A/G Ratio) 0.9 1 0.7-1.6 [facility] [place] 2 [id number] 15:40:00 Test Item Value Reference Range Interpretation Comments eGFR (test code = eGFR) 125 [facility] [id number] 15:40:00 Test Item Value Reference Range Interpretation Comments Segs (test code = Segs) 62.0 45.0-75.0 [place] [id number] 15:40:00 Test Item Value Reference Range Interpretation Comments Lymphocytes (test code = Lymphocytes) 28.3 20.0-40.0 [place] [address]-04-13 15:40:00 Test Item Value Reference Range Interpretation Comments Monocytes (test code = Monocytes) 6.9 2.0-12.0 [place] 074433-04-13 15:40:00 Test Item Value Reference Range Interpretation Comments Eosinophils (test code = 2.0 See_Comment [A utomated message] The Eosinophils) system which ge nerated this result tra nsmitted reference range : <=4.0. The reference r marleen was not used to int erpret this result as normal/abnormal . [place] [address]-04-13 15:40:00 Test Item Value Reference Range Interpretation Comments Basophils (test code = 0.8 See_Comment [Aut omated message] The Basophils) system which ge nerated this result tra nsmitted reference range : <=1.0. The reference r marleen was not used to int erpret this result as normal/abnormal . [id number] 15:40:00 Test Item Value Reference Range Interpretation Comments Neutrophils # (test code = Neutrophils 4.2 1.5-8.1 #) [id number] 15:40:00 Test Item Value Reference Range Interpretation Comments Lymphocytes # (test code = Lymphocytes 1.9 1.0-5.5 #) [place] 074433-04-13 15:40:00 Test Item Value Reference Range Interpretation Comments Monocytes # (test code 0.5 See_Comment [Aut omated message] The = Monocytes #) system which generated this result tra nsmitted reference range : <=0.8. The reference r marleen was not used to int erpret this result as normal/abnormal . [place] [address]-04-13 15:40:00 Test Item Value Reference Range Interpretation Comments Eosinophils # (test code 0.1 See_Comment [A utomated message] The = Eosinophils #) system whic h generated this result tra nsmitted reference range : <=0.5. The reference r marleen was not used to int erpret this result as normal/abnormal . [place] 074433-04-13 15:40:00 Test Item Value Reference Range Interpretation Comments Basophils # (test code 0.1 See_Comment [Aut omated message] The = Basophils #) system which generated this result tra nsmitted reference range : <=0.2. The reference r marleen was not used to int erpret this result as normal/abnormal . [id number] 15:40:00 Test Item Value Reference Range Interpretation Comments WBC (test code = WBC) 6.7 3.7-10.4 [id number] 15:40:00 Test Item Value Reference Range Interpretation Comments RBC (test code = RBC) 4.36 4.20-5.40 [id number] 15:40:00 Test Item Value Reference Range Interpretation Comments Hgb (test code = Hgb) 13.6 12.0-16.0 [id number] 15:40:00 Test Item Value Reference Range Interpretation Comments Hct (test code = Hct) 40.3 36.0-48.0 [id number] 15:40:00 Test Item Value Reference Range Interpretation Comments MCV (test code = MCV) 92.4 80.0-98.0 [id number] 15:40:00 Test Item Value Reference Range Interpretation Comments MCH (test code = MCH) 31.1 pg 27.0-31.0 [id number] 15:40:00 Test Item Value Reference Range Interpretation Comments MCHC (test code = MCHC) 33.6 32.0-36.0 [id number] 15:40:00 Test Item Value Reference Range Interpretation Comments RDW (test code = RDW) 13.2 11.5-14.5 [id number] 15:40:00 Test Item Value Reference Range Interpretation Comments Platelet (test code = Platelet) 401 133-450 [id number] 15:40:00 Test Item Value Reference Range Interpretation Comments MPV (test code = MPV) 7.7 7.4-10.4 [facility]fieldVtothjeUKXKKACMCB8493-58-48 15:40:00 Test Item Value Reference Range Interpretation Comments PT (test code = PT) 13.0 s 12.0-14.7 [place] [address]-04-13 15:40:00 Test Item Value Reference Range Interpretation Comments INR (test code = INR) 0.98 1 0.85-1.17 [place] [address]-04-13 15:40:00 Test Item Value Reference Range Interpretation Comments PTT (test code = PTT) 27.1 s 22.9-35.8 [place] [address]-04-13 15:40:00 Test Item Value Reference Range Interpretation Comments Eosinophils # (test code 0.1 See_Comment [A utomated message] The = Eosinophils #) system whic h generated this result tra nsmitted reference range : <=0.5. The reference r marleen was not used to int erpret this result as normal/abnormal . [place] [address]-04-13 15:40:00 Test Item Value Reference Range Interpretation Comments Basophils # (test code 0.1 See_Comment [Aut omated message] The = Basophils #) system which generated this result tra nsmitted reference range : <=0.2. The reference r marleen was not used to int erpret this result as normal/abnormal . [place] [address]-04-13 15:40:00 Test Item Value Reference Range Interpretation Comments PT (test code = PT) 13.0 s 12.0-14.7 [place] [address]-04-13 15:40:00 Test Item Value Reference Range Interpretation Comments INR (test code = INR) 0.98 1 0.85-1.17 [place] [address]-04-13 15:40:00 Test Item Value Reference Range Interpretation Comments PTT (test code = PTT) 27.1 s 22.9-35.8 [place] [address]-04-13 15:40:00 Test Item Value Reference Range Interpretation Comments Coronavirus (COVID-19) Not Detected (02/10/23 KARLO (test code = 10:40 AM) Coronavirus (COVID-19) KARLO) [address]04-13 15:40:00 Test Item Value Reference Range Interpretation Comments Coronavirus (COVID-19) Not Detected (02/10/23 KARLO (test code = 10:40 AM) Coronavirus (COVID-19) KARLO) [facility] AND [id number] 15:40:00 Test Item Value Reference Range Interpretation Comments UA Turbidity (test code = Clear (02/10/23 10:40 UA Turbidity) AM) [facility] AND [id number] 15:40:00 Test Item Value Reference Range Interpretation Comments UA Spec Grav (test code = UA Spec 1.020 1 Grav) [facility] AND [id number] 15:40:00 Test Item Value Reference Range Interpretation Comments UA pH (test code = UA pH) 5.0 1 5.0-8.0 [facility] AND [id number] 15:40:00 Test Item Value Reference Range Interpretation Comments UA Protein (test code = UA Negative mg/dL Protein) [facility] AND [id number] 15:40:00 Test Item Value Reference Range Interpretation Comments UA Glucose (test code = UA Negative mg/dL Glucose) [facility] AND [id number] 15:40:00 Test Item Value Reference Range Interpretation Comments UA Ketones (test code = UA Negative mg/dL Ketones) [facility] AND [id number] 15:40:00 Test Item Value Reference Range Interpretation Comments UA Bili (test code = Negative *NA*(02/10/23 UA Bili) 10:40 AM) [facility] AND [id number] 15:40:00 Test Item Value Reference Range Interpretation Comments UA Blood (test code = Small *ABN*(02/10/23 UA Blood) 10:40 AM) [facility] AND [id number] 15:40:00 Test Item Value Reference Range Interpretation Comments UA Nitrite (test code Negative (02/10/23 10:40 = UA Nitrite) AM) [facility] AND [id number] 15:40:00 Test Item Value Reference Range Interpretation Comments UA Leuk Est (test Negative (02/10/23 10:40 code = UA Leuk Est) AM) [facility] AND [id number] 15:40:00 Test Item Value Reference Range Interpretation Comments UA Ascorbic Acid (test Negative 2*NA*(02/10/23 code = UA Ascorbic 10:40 AM) Acid) [facility] AND [id number] 15:40:00 Test Item Value Reference Range Interpretation Comments UA Sq Epi (test code = UA Sq Occasional /LPF Epi) [facility] AND [id number] 15:40:00 Test Item Value Reference Range Interpretation Comments UA WBC (test code = 2 See_Comment [Automa jessie message] The UA WBC) system which ge nerated this result transmit jessie reference range : <=5. The reference range was not used to interpr et this result as mary l/abnormal. [facility] AND [id number] 15:40:00 Test Item Value Reference Range Interpretation Comments UA RBC (test code = 3 See_Comment [Automa jessie message] The UA RBC) system which ge nerated this result transmit jessie reference range : <=2. The reference range was not used to interpr et this result as mary l/abnormal. [facility] AND [id number] 15:40:00 Test Item Value Reference Range Interpretation Comments UA Color (test code = UA Color) Ltyellow [facility] AND [id number] 15:40:00 Test Item Value Reference Range Interpretation Comments UA Urobilinogen (test code = UA <=1.0 mg/dL 0.1-1.0 Urobilinogen) [facility] AND [id number] 15:40:00 Test Item Value Reference Range Interpretation Comments UA Turbidity (test code = Clear (02/10/23 10:40 UA Turbidity) AM) [facility] AND [id number] 15:40:00 Test Item Value Reference Range Interpretation Comments UA Spec Grav (test code = UA Spec 1.020 1 Grav) [facility] AND [id number] 15:40:00 Test Item Value Reference Range Interpretation Comments UA pH (test code = UA pH) 5.0 1 5.0-8.0 [facility] AND [id number] 15:40:00 Test Item Value Reference Range Interpretation Comments UA Protein (test code = UA Negative mg/dL Protein) [facility] AND [id number] 15:40:00 Test Item Value Reference Range Interpretation Comments UA Glucose (test code = UA Negative mg/dL Glucose) [facility] AND [id number] 15:40:00 Test Item Value Reference Range Interpretation Comments UA Ketones (test code = UA Negative mg/dL Ketones) [facility] AND [id number] 15:40:00 Test Item Value Reference Range Interpretation Comments UA Bili (test code = Negative *NA*(02/10/23 UA Bili) 10:40 AM) [facility] [id number] 15:40:00 Test Item Value Reference Range Interpretation Comments UA Blood (test code = Small *ABN*(02/10/23 UA Blood) 10:40 AM) [facility] [id number] 15:40:00 Test Item Value Reference Range Interpretation Comments UA Nitrite (test code Negative (02/10/23 10:40 = UA Nitrite) AM) [facility] [id number] 15:40:00 Test Item Value Reference Range Interpretation Comments UA Leuk Est (test Negative (02/10/23 10:40 code = UA Leuk Est) AM) [facility] [id number] 15:40:00 Test Item Value Reference Range Interpretation Comments UA Ascorbic Acid (test Negative 2*NA*(02/10/23 code = UA Ascorbic 10:40 AM) Acid) [facility] [id number] 15:40:00 Test Item Value Reference Range Interpretation Comments UA Sq Epi (test code = UA Sq Occasional /LPF Epi) [facility] [id number] 15:40:00 Test Item Value Reference Range Interpretation Comments UA WBC (test code = 2 See_Comment [Automa jessie message] The UA WBC) system which ge nerated this result transmit jessie reference range : <=5. The reference range was not used to interpr et this result as mary l/abnormal. [facility] AND [id number] 15:40:00 Test Item Value Reference Range Interpretation Comments UA RBC (test code = 3 See_Comment [Automa jessie message] The UA RBC) system which ge nerated this result transmit jessie reference range : <=2. The reference range was not used to interpr et this result as mary l/abnormal. [facility] AND [id number] 15:40:00 Test Item Value Reference Range Interpretation Comments UA Color (test code = UA Color) [facility] [id number] 15:40:00 Test Item Value Reference Range Interpretation Comments UA Urobilinogen (test code = UA <=1.0 mg/dL 0.1-1.0 Urobilinogen) [facility] [id number] 15:40:00 Test Item Value Reference Range Interpretation Comments U Preg (test code = U Negative (02/10/23 10:40 Preg) AM) [facility] [id number] 15:40:00 Test Item Value Reference Range Interpretation Comments Glucose Lvl (test code = Glucose Lvl) 97 70-99 [facility]2023-04-13 15:40:00 Test Item Value Reference Range Interpretation Comments BUN (test code = BUN) 18 7-22 [facility]2023-04-13 15:40:00 Test Item Value Reference Range Interpretation Comments Creatinine Lvl (test code = Creatinine 0.60 0.50-1.40 Lvl) [facility]2023-04-13 15:40:00 Test Item Value Reference Range Interpretation Comments Sodium Lvl (test code = Sodium Lvl) 136 135-145 [facility]2023-04-13 15:40:00 Test Item Value Reference Range Interpretation Comments Potassium Lvl (test code = Potassium 3.6 3.5-5.1 Lvl) [facility]2023-04-13 15:40:00 Test Item Value Reference Range Interpretation Comments Chloride Lvl (test code = Chloride Lvl) 109 95-109 [facility]2023-04-13 15:40:00 Test Item Value Reference Range Interpretation Comments CO2 (test code = CO2) 24 24-32 [place] [id number] 15:40:00 Test Item Value Reference Range Interpretation Comments Calcium Lvl (test code = Calcium Lvl) 9.4 8.5-10.5 [place] [id number] 15:40:00 Test Item Value Reference Range Interpretation Comments Total Protein (test code = Total 7.6 6.4-8.4 Protein) [facility]2023-04-13 15:40:00 Test Item Value Reference Range Interpretation Comments Albumin Lvl (test code = Albumin Lvl) 3.7 3.5-5.0 [place] [id number] 15:40:00 Test Item Value Reference Range Interpretation Comments ALT (test code = ALT) 46 See_Comment [Auto mated message] The system which ge nerated this result transmit jessie reference range : <=65. The reference range was not used to interpr et this result as mary l/abnormal. [facility] [place] [facility] [id number] 15:40:00 Test Item Value Reference Range Interpretation Comments AST (test code = AST) 17 See_Comment [Auto mated message] The system which ge nerated this result transmit jessie reference range : <=37. The reference range was not used to interpr et this result as mary l/abnormal. [facility] [place] [facility] [id number] 15:40:00 Test Item Value Reference Range Interpretation Comments Alk Phos (test code = Alk Phos) 77 39-136 [facility] [place] [facility] [id number] 15:40:00 Test Item Value Reference Range Interpretation Comments Bili Total (test code = Bili Total) 0.3 0.2-1.3 [facility] [place] [facility] [id number] 15:40:00 Test Item Value Reference Range Interpretation Comments AGAP (test code = AGAP) 6.6 10.0-20.0 [facility] [place] [facility] [id number] 15:40:00 Test Item Value Reference Range Interpretation Comments B/C Ratio (test code = B/C Ratio) 30 1 6-25 [facility] [place] [id number] 15:40:00 Test Item Value Reference Range Interpretation Comments Globulin (test code = Globulin) 3.9 2.7-4.2 [facility] [place] 2 [id number] 15:40:00 Test Item Value Reference Range Interpretation Comments A/G Ratio (test code = A/G Ratio) 0.9 1 0.7-1.6 [facility] [place] 2 [id number] 15:40:00 Test Item Value Reference Range Interpretation Comments eGFR (test code = eGFR) 125 [facility] RcslvbrGPSARJCTVA0968-26-34 15:40:00 Test Item Value Reference Range Interpretation Comments Segs (test code = Segs) 62.0 45.0-75.0 [facility] JrkksczKSKMSIHCBV1756-20-03 15:40:00 Test Item Value Reference Range Interpretation Comments Lymphocytes (test code = Lymphocytes) 28.3 20.0-40.0 [facility]dsWROWMWFHNO2364-72-24 15:40:00 Test Item Value Reference Range Interpretation Comments Monocytes (test code = Monocytes) 6.9 2.0-12.0 [facility]fieldIlruiooIHYICGZGKS7447-60-60 15:40:00 Test Item Value Reference Range Interpretation Comments Eosinophils (test code = 2.0 See_Comment [A utomated message] The Eosinophils) system which ge nerated this result tra nsmitted reference range : <=4.0. The reference r marleen was not used to int erpret this result as normal/abnormal . [facility] ResourcesGrrsstzKQYFOJVND3374-02-68 20:51:00 Test Item Value Reference Range Interpretation Comments Glucose Lvl (test code = Glucose Lvl) 118 70-99 [facility] [place] [facility] ResourcesSslxzxwKVNBDKBCR7582-13-43 20:51:00 Test Item Value Reference Range Interpretation Comments BUN (test code = BUN) 15 7-22 [facility] [place] [facility] ResourcesZixcpbdSHSKDKQQM9340-44-08 20:51:00 Test Item Value Reference Range Interpretation Comments Creatinine Lvl (test code = Creatinine 0.66 0.50-1.40 Lvl) [facility] [place] [facility] ResourcesWrrhuucAKVVTHEFA2875-93-12 20:51:00 Test Item Value Reference Range Interpretation Comments Sodium Lvl (test code = Sodium Lvl) 139 135-145 [facility] [place] [facility] ResourcesVnbxmuzVDDAEIGQG5771-63-50 20:51:00 Test Item Value Reference Range Interpretation Comments Potassium Lvl (test code = Potassium 3.8 3.5-5.1 Lvl) [facility] [place] [facility] ResourcesYkkfmmhAHDBHRPTR9280-62-15 20:51:00 Test Item Value Reference Range Interpretation Comments Chloride Lvl (test code = Chloride Lvl) 106 95-109 [facility] [place] [facility] ResourcesYpzydaaMPUHOOJEE3339-02-43 20:51:00 Test Item Value Reference Range Interpretation Comments CO2 (test code = CO2) 26 24-32 [facility] [place] [facility] ResourcesNdpjgwpOWEIVXANN8656-50-15 20:51:00 Test Item Value Reference Range Interpretation Comments Calcium Lvl (test code = Calcium Lvl) 8.9 8.5-10.5 [facility] [place] [facility] ResourcesEtbzykiDSKTPGGBE0660-71-52 20:51:00 Test Item Value Reference Range Interpretation Comments AGAP (test code = AGAP) 10.8 10.0-20.0 [facility] [place] [facility] ResourcesJozrsujYODGALBGV0036-97-72 20:51:00 Test Item Value Reference Range Interpretation Comments eGFR (test code = eGFR) 122 [facility] [place] [facility] ResourcesOxwjutzINFMGIKVP7043-73-89 20:51:00 Test Item Value Reference Range Interpretation Comments S Preg (test code = S Negative *NA*(11/16/22 Preg) 2:51 PM) [place] 074433-01-17 20:51:00 Test Item Value Reference Range Interpretation Comments Segs (test code = Segs) 62.0 45.0-75.0 [place] 074433-01-17 20:51:00 Test Item Value Reference Range Interpretation Comments Lymphocytes (test code = Lymphocytes) 27.6 20.0-40.0 [place] [address]-01-17 20:51:00 Test Item Value Reference Range Interpretation Comments Monocytes (test code = Monocytes) 7.5 2.0-12.0 [place] 074433-01-17 20:51:00 Test Item Value Reference Range Interpretation Comments Eosinophils (test code = 1.9 See_Comment [A utomated message] The Eosinophils) system which ge nerated this result tra nsmitted reference range : <=4.0. The reference r marleen was not used to int erpret this result as normal/abnormal . [facility]fieldNatfxptCXPSXCUVSN0497-28-37 20:51:00 Test Item Value Reference Range Interpretation Comments Basophils (test code = 1.0 See_Comment [Aut omated message] The Basophils) system which ge nerated this result tra nsmitted reference range : <=1.0. The reference r marleen was not used to int erpret this result as normal/abnormal . [facility]fieldFglfayeFOTOWOEIQY9038-41-37 20:51:00 Test Item Value Reference Range Interpretation Comments Neutrophils # (test code = Neutrophils 4.6 1.5-8.1 #) [place] 074433-01-17 20:51:00 Test Item Value Reference Range Interpretation Comments Lymphocytes # (test code = Lymphocytes 2.1 1.0-5.5 #) [place] [address]-01-17 20:51:00 Test Item Value Reference Range Interpretation Comments Monocytes # (test code 0.6 See_Comment [Aut omated message] The = Monocytes #) system which generated this result tra nsmitted reference range : <=0.8. The reference r marleen was not used to int erpret this result as normal/abnormal . [facility]fieldWwbacbaIEJOFYYVGM2877-45-53 20:51:00 Test Item Value Reference Range Interpretation Comments Eosinophils # (test code 0.1 See_Comment [A utomated message] The = Eosinophils #) system whic h generated this result tra nsmitted reference range : <=0.5. The reference r marleen was not used to int erpret this result as normal/abnormal . [facility]fieldIvkehneTYRBZHGWSH1609-93-25 20:51:00 Test Item Value Reference Range Interpretation Comments Basophils # (test code 0.1 See_Comment [Aut omated message] The = Basophils #) system which generated this result tra nsmitted reference range : <=0.2. The reference r marleen was not used to int erpret this result as normal/abnormal . [facility]fieldLlshbkkFLHEJTNBBL8717-00-58 20:51:00 Test Item Value Reference Range Interpretation Comments WBC (test code = WBC) 7.5 3.7-10.4 [facility]fieldDnqhvybEJIUNCZIXD9110-32-76 20:51:00 Test Item Value Reference Range Interpretation Comments RBC (test code = RBC) 4.24 4.20-5.40 [facility]fieldSwcavalPZFVHVJKUJ0471-72-95 20:51:00 Test Item Value Reference Range Interpretation Comments Hgb (test code = Hgb) 13.4 12.0-16.0 [facility]fieldRnzlwlcSHQITNKBJI5496-76-78 20:51:00 Test Item Value Reference Range Interpretation Comments Hct (test code = Hct) 39.8 36.0-48.0 [facility]fieldPswcojxBGSXXJDAVP3794-46-38 20:51:00 Test Item Value Reference Range Interpretation Comments MCV (test code = MCV) 93.9 80.0-98.0 [facility]fieldJttthoqXUSVLYWHHS7910-56-31 20:51:00 Test Item Value Reference Range Interpretation Comments MCH (test code = MCH) 31.6 pg 27.0-31.0 [facility]fieldDliaxbpXSCYEKZVPH7224-24-82 20:51:00 Test Item Value Reference Range Interpretation Comments MCHC (test code = MCHC) 33.7 32.0-36.0 [facility]fieldQncygfmOQZCBLZCAB0884-62-12 20:51:00 Test Item Value Reference Range Interpretation Comments RDW (test code = RDW) 13.1 11.5-14.5 [place] 074433-01-17 20:51:00 Test Item Value Reference Range Interpretation Comments Platelet (test code = Platelet) 374 133-450 [facility]fieldYakfnkpJIRQQGSEOK6932-38-09 20:51:00 Test Item Value Reference Range Interpretation Comments MPV (test code = MPV) 7.9 7.4-10.4 [place] 661023-01-17 20:51:00 Test Item Value Reference Range Interpretation Comments Glucose Lvl (test code = Glucose Lvl) 118 70-99 [place] 661023-01-17 20:51:00 Test Item Value Reference Range Interpretation Comments BUN (test code = BUN) 15 7-22 [place] 661023-01-17 20:51:00 Test Item Value Reference Range Interpretation Comments Creatinine Lvl (test code = Creatinine 0.66 0.50-1.40 Lvl) [facility] [place] [facility] ResourcesDadwgcoQZKASDRLZ8299-25-71 20:51:00 Test Item Value Reference Range Interpretation Comments Sodium Lvl (test code = Sodium Lvl) 139 135-145 [facility] ResourcesQxptybzAGXUCMPZR6036-00-26 20:51:00 Test Item Value Reference Range Interpretation Comments Potassium Lvl (test code = Potassium 3.8 3.5-5.1 Lvl) [facility] ResourcesWdhitwnKIPHGFHDD2874-38-14 20:51:00 Test Item Value Reference Range Interpretation Comments Chloride Lvl (test code = Chloride Lvl) 106 95-109 [facility] ResourcesPsxbatdMCWCLWBOR5659-52-50 20:51:00 Test Item Value Reference Range Interpretation Comments CO2 (test code = CO2) 26 24-32 [facility] ResourcesJlblvcuMFFBVIENV8753-56-27 20:51:00 Test Item Value Reference Range Interpretation Comments Calcium Lvl (test code = Calcium Lvl) 8.9 8.5-10.5 [facility] ResourcesXfifhpbAUPDLYSCX2721-00-88 20:51:00 Test Item Value Reference Range Interpretation Comments AGAP (test code = AGAP) 10.8 10.0-20.0 [facility] [place] [facility] ResourcesLezvmojGLABYXTIF6335-62-88 20:51:00 Test Item Value Reference Range Interpretation Comments eGFR (test code = eGFR) 122 [facility] ResourcesGpuqamwYYPOHYELS8428-01-56 20:51:00 Test Item Value Reference Range Interpretation Comments S Preg (test code = S Negative *NA*(11/16/22 Preg) 2:51 PM) [place] [address]-01-17 20:51:00 Test Item Value Reference Range Interpretation Comments Segs (test code = Segs) 62.0 45.0-75.0 [place] 074433-01-17 20:51:00 Test Item Value Reference Range Interpretation Comments Lymphocytes (test code = Lymphocytes) 27.6 20.0-40.0 [place] 074433-01-17 20:51:00 Test Item Value Reference Range Interpretation Comments Monocytes (test code = Monocytes) 7.5 2.0-12.0 [place] 074433-01-17 20:51:00 Test Item Value Reference Range Interpretation Comments Eosinophils (test code = 1.9 See_Comment [A utomated message] The Eosinophils) system which ge nerated this result tra nsmitted reference range : <=4.0. The reference r marleen was not used to int erpret this result as normal/abnormal . [place] 074433-01-17 20:51:00 Test Item Value Reference Range Interpretation Comments Basophils (test code = 1.0 See_Comment [Aut omated message] The Basophils) system which ge nerated this result tra nsmitted reference range : <=1.0. The reference r marleen was not used to int erpret this result as normal/abnormal . [place] 074433-01-17 20:51:00 Test Item Value Reference Range Interpretation Comments Neutrophils # (test code = Neutrophils 4.6 1.5-8.1 #) [place] 074433-01-17 20:51:00 Test Item Value Reference Range Interpretation Comments Lymphocytes # (test code = Lymphocytes 2.1 1.0-5.5 #) [place] [address]-01-17 20:51:00 Test Item Value Reference Range Interpretation Comments Monocytes # (test code 0.6 See_Comment [Aut omated message] The = Monocytes #) system which generated this result tra nsmitted reference range : <=0.8. The reference r marleen was not used to int erpret this result as normal/abnormal . [place] 074433-01-17 20:51:00 Test Item Value Reference Range Interpretation Comments Eosinophils # (test code 0.1 See_Comment [A utomated message] The = Eosinophils #) system whic h generated this result tra nsmitted reference range : <=0.5. The reference r marleen was not used to int erpret this result as normal/abnormal . [facility]fieldDefwluvSANPONKJLM0798-30-97 20:51:00 Test Item Value Reference Range Interpretation Comments Basophils # (test code 0.1 See_Comment [Aut omated message] The = Basophils #) system which generated this result tra nsmitted reference range : <=0.2. The reference r marleen was not used to int erpret this result as normal/abnormal . [facility] MansfieldLztpqpsGAUTUJVULE4755-25-62 20:51:00 Test Item Value Reference Range Interpretation Comments WBC (test code = WBC) 7.5 3.7-10.4 [place] 074433-01-17 20:51:00 Test Item Value Reference Range Interpretation Comments RBC (test code = RBC) 4.24 4.20-5.40 [facility]fieldAvmsnrmGQVDBPCJJJ0621-06-34 20:51:00 Test Item Value Reference Range Interpretation Comments Hgb (test code = Hgb) 13.4 12.0-16.0 [facility]fieldZytvouwXENONEDVSU8224-73-88 20:51:00 Test Item Value Reference Range Interpretation Comments Hct (test code = Hct) 39.8 36.0-48.0 [facility]fieldFnijebnWYFWDVOWMW4764-48-39 20:51:00 Test Item Value Reference Range Interpretation Comments MCV (test code = MCV) 93.9 80.0-98.0 [facility]fieldQbujallOJYALJPRVO1333-61-66 20:51:00 Test Item Value Reference Range Interpretation Comments MCH (test code = MCH) 31.6 pg 27.0-31.0 [facility]fieldNwzoorfHHWYLXIWWX3914-93-70 20:51:00 Test Item Value Reference Range Interpretation Comments MCHC (test code = MCHC) 33.7 32.0-36.0 [facility]fieldTkclhpgCRUCQCKEWU4305-64-12 20:51:00 Test Item Value Reference Range Interpretation Comments RDW (test code = RDW) 13.1 11.5-14.5 [place] 074433-01-17 20:51:00 Test Item Value Reference Range Interpretation Comments Platelet (test code = Platelet) 374 133-450 [facility]fieldElnvlrlACBARBHYHB2247-45-54 20:51:00 Test Item Value Reference Range Interpretation Comments MPV (test code = MPV) 7.9 7.4-10.4 [place] 661023-01-17 20:51:00 Test Item Value Reference Range Interpretation Comments Glucose Lvl (test code = Glucose Lvl) 118 70-99 [place] 661023-01-17 20:51:00 Test Item Value Reference Range Interpretation Comments BUN (test code = BUN) 15 7-22 [place] 661023-01-17 20:51:00 Test Item Value Reference Range Interpretation Comments Creatinine Lvl (test code = Creatinine 0.66 0.50-1.40 Lvl) [facility] ResourcesZawhdvgBGUZNQMMA1041-13-24 20:51:00 Test Item Value Reference Range Interpretation Comments Sodium Lvl (test code = Sodium Lvl) 139 135-145 [facility] ResourcesTlxikyqWOOWNQBAN6843-11-51 20:51:00 Test Item Value Reference Range Interpretation Comments Potassium Lvl (test code = Potassium 3.8 3.5-5.1 Lvl) [facility] ResourcesNrjwibcQJJTJHVHL2835-74-38 20:51:00 Test Item Value Reference Range Interpretation Comments Chloride Lvl (test code = Chloride Lvl) 106 95-109 [facility] ResourcesMalgjxhYNPWWHQIT4747-67-03 20:51:00 Test Item Value Reference Range Interpretation Comments CO2 (test code = CO2) 26 24-32 [facility] ResourcesAiglldmZEUNIQYCY9514-80-21 20:51:00 Test Item Value Reference Range Interpretation Comments Calcium Lvl (test code = Calcium Lvl) 8.9 8.5-10.5 [facility] ResourcesVovobzmLMLDVHBDF2291-52-78 20:51:00 Test Item Value Reference Range Interpretation Comments AGAP (test code = AGAP) 10.8 10.0-20.0 [facility] ResourcesPgfezsgFMPXFNXNC7599-67-59 20:51:00 Test Item Value Reference Range Interpretation Comments eGFR (test code = eGFR) 122 [facility] ResourcesFrmcfdyYHRMPBPZD5279-06-95 20:51:00 Test Item Value Reference Range Interpretation Comments S Preg (test code = S Negative *NA*(11/16/22 Preg) 2:51 PM) [facility]fieldQwogpzhKJSWOQTFFV4982-17-08 20:51:00 Test Item Value Reference Range Interpretation Comments Segs (test code = Segs) 62.0 45.0-75.0 [place] 074433-01-17 20:51:00 Test Item Value Reference Range Interpretation Comments Lymphocytes (test code = Lymphocytes) 27.6 20.0-40.0 [facility]fieldHpuetmjJRZTUCAHDI9205-30-73 20:51:00 Test Item Value Reference Range Interpretation Comments Monocytes (test code = Monocytes) 7.5 2.0-12.0 [place] 074433-01-17 20:51:00 Test Item Value Reference Range Interpretation Comments Eosinophils (test code = 1.9 See_Comment [A utomated message] The Eosinophils) system which ge nerated this result tra nsmitted reference range : <=4.0. The reference r marleen was not used to int erpret this result as normal/abnormal . [place] 074433-01-17 20:51:00 Test Item Value Reference Range Interpretation Comments Basophils (test code = 1.0 See_Comment [Aut omated message] The Basophils) system which ge nerated this result tra nsmitted reference range : <=1.0. The reference r marleen was not used to int erpret this result as normal/abnormal . [facility]fieldHxxouwyIUKFGZWBDR8141-19-47 20:51:00 Test Item Value Reference Range Interpretation Comments Neutrophils # (test code = Neutrophils 4.6 1.5-8.1 #) [facility]fieldGmvkhycMMXNRWCYGR2210-81-75 20:51:00 Test Item Value Reference Range Interpretation Comments Lymphocytes # (test code = Lymphocytes 2.1 1.0-5.5 #) [facility]fieldQcqnnszHDUGVIFGZE9745-05-37 20:51:00 Test Item Value Reference Range Interpretation Comments Monocytes # (test code 0.6 See_Comment [Aut omated message] The = Monocytes #) system which generated this result tra nsmitted reference range : <=0.8. The reference r marleen was not used to int erpret this result as normal/abnormal . [facility]fieldUoqodvhMLZOFGUASO5404-76-43 20:51:00 Test Item Value Reference Range Interpretation Comments Eosinophils # (test code 0.1 See_Comment [A utomated message] The = Eosinophils #) system whic h generated this result tra nsmitted reference range : <=0.5. The reference r marleen was not used to int erpret this result as normal/abnormal . [place] 074433-01-17 20:51:00 Test Item Value Reference Range Interpretation Comments Basophils # (test code 0.1 See_Comment [Aut omated message] The = Basophils #) system which generated this result tra nsmitted reference range : <=0.2. The reference r marleen was not used to int erpret this result as normal/abnormal . [facility]fieldTwkhnhpCSLNRLNHUT5288-45-77 20:51:00 Test Item Value Reference Range Interpretation Comments WBC (test code = WBC) 7.5 3.7-10.4 [facility]FalbhttFQUGXKDZGW8905-73-44 20:51:00 Test Item Value Reference Range Interpretation Comments RBC (test code = RBC) 4.24 4.20-5.40 [facility] HospitalOyfspisNWKWTVXVTX1609-71-04 20:51:00 Test Item Value Reference Range Interpretation Comments Hgb (test code = Hgb) 13.4 12.0-16.0 [facility] HospitalUinostuOHJEVZYBUK8488-36-49 20:51:00 Test Item Value Reference Range Interpretation Comments Hct (test code = Hct) 39.8 36.0-48.0 [facility] HospitalCnzdmgkCDGHYQDQTP4034-25-50 20:51:00 Test Item Value Reference Range Interpretation Comments MCV (test code = MCV) 93.9 80.0-98.0 [facility] HospitalDngdnmpJKTZWYZEAM2507-98-19 20:51:00 Test Item Value Reference Range Interpretation Comments MCH (test code = MCH) 31.6 pg 27.0-31.0 [facility] HospitalCjzxprzIGTGDBFVWN9906-46-67 20:51:00 Test Item Value Reference Range Interpretation Comments MCHC (test code = MCHC) 33.7 32.0-36.0 [facility] HospitalWxqnetkTVZRSARHSV3204-80-03 20:51:00 Test Item Value Reference Range Interpretation Comments RDW (test code = RDW) 13.1 11.5-14.5 [facility] HospitalYvhbwfuTJKQNEVRCD5660-02-96 20:51:00 Test Item Value Reference Range Interpretation Comments Platelet (test code = Platelet) 374 133-450 [facility]fieldDggmvggORFHVABGCE7681-13-26 20:51:00 Test Item Value Reference Range Interpretation Comments MPV (test code = MPV) 7.9 7.4-10.4 [facility] RFLX MICR CULT IF [id number] 19:59:00 Test Item Value Reference Range Interpretation [...] for culture: Dysuria/FrequencySpecimen Description: CLEAN CATCHUR HCG [id number] 19:59:00 Test Item Value Reference Range Interpretation [...] culture: Dysuria/FrequencySpecimen Description: CLEAN CATCHDRUGS OF ABUSE [id number] 19:56:00 Test Item Value Reference Range Interpretation [...] code = PHENCU) ng/mL - CT ANGIO [id number] 11:16:00 [facility] 1995 Sex: F Patient Name: ABNER NOYOLA Unit No: [id number] EXAMS: CPT CODE: [id number] CT ANGIO CHEST [address] CT SCAN OF THE CHEST WITH CONTRAST (CTPA): DATE: September 29, 2020 COMPARISON: None CLINICAL HISTORY:Status post , shortness of breath, elevated d-dimer, chest pain One or more of the following dose techniques were utilized; automated exposure control, adjustment of the mA and/or kV according to patient size, and/or utilization of iterative reconstruction technique. DLP: 558.03 mGy-cm. TECHNIQUE:Sequential scanning of the chest as a PE protocol was performed with Isovue 300 IV. Sagittal and coronal reformatted images were obtained as well as right and left oblique MIPS images of the pulmonary v asculature were obtained. 3D MIP images of the [...] identified. Visualized osseous structures demonstrate no acute a bnormalities. The visualized upper abdomen and lower neck are unremarkable. IMPRESSION: No pulmonaryemboli identified. Prominent pulmonary vasculature and pleural effusions are suggestive of fluid overload. Mildly prominent heart. [facility] NAME: ABNER NOYOLA Radiology Department PHYS: Kervin Rodríguez [address] : 1995 AGE: 25 SEX: F [place] [address] LOC: Joaquín.ERS PHONE #: [phone] EXAM DATE: 09/29/2020 STATUS: REG ER FAX #: [phone] RAD NO: Page 1 Signed Report 1 Patient Name: ABNER NOYOLA Unit No: [id number] EXAMS: CPT CODE: [id number] CT ANGIO CHEST 96008 (Continued) at 1116 Reported and signed by: Stella Diaz MD CC: Kervin Rosa MD; Jeremiah Fenton Technologist: Fernandez Chatman, RT, CT CTDI: 17.86 DLP: 558.03 Trnscrbd D/ (1116) t.[facility] NAME: ABNER NOYOLA Radiology Department PHYS: Kervin Rodríguez [address] : 1995 AGE: 25 SEX: F [place] [address] LOC: FranERS PHONE #: [phone] EXAM DATE: 09/29/2020 STATUS: REG ER FAX #: [phone] RAD NO: Page 2 Signed Report 1 Patient Name: ABNER NOYOLA Unit No: [id number] EXAMS: CPT CODE: [id number] CT ANGIO CHEST 48788 (Continued) Orig Print D/T: S: 09/29/2020 (1119) [facility] NAME: ABNER NOYOLA Radiology Department PHYS: Kervin [address]rí[address] : 1995 AGE: 25 SEX: F [place], [place] [address] LOC: FranERS PHONE #: [phone] EXAM DATE: 09/29/2020 STATUS: REG ER FAX #: [phone] RAD NO: Page 3 Signed Report 1D- DIMER [id number] 10:05:00 Test Item Value Reference Range Interpretation [...] for rulingout DVT. - XR CHEST 1 [id number] 10:03:00 [facility] : 1995 Sex: F Patient Name: ABNER NOYOLA Unit No: [id number] EXAMS: CPT CODE: [id number] XR CHEST 1 V 45314 Clinical Indication: Shortness of breath after section [...] Low lung volumes. No consolidative pneumonia. SL: [id number] at 1003 Reported and signed by: Tyler Lewis MD CC: Kervin Rosa MD; Jeremiah Fenton Technologist: Angely Koroma RT, CT Trnscrbd D/ (1003) [id number].[id number] Orig Print D/T: S: 09/29/2020 (1006) [facility] NAME: ABNER NOYOLA Radiology Department PHYS: Kervin [address]rí[address] : 1995 AGE:25 SEX: F [place], [place] [address] LOC: SANDRA PHONE #: [phone] EXAM DATE: 09/29/2020 STATUS: REG ER FAX #: [phone] RAD NO: Page 1 Signed Report B-TYPE NATRIURETIC [id number] 09:48:00 Test Item Value Reference Range Interpretation Comments B-TYPE NATRIURETIC PEPTIDE (test 383.61 pg/mL 0-100 H code = BNP) DRUGS OF ABUSE [id number] 09:43:00 Test Item Value Reference Range Interpretation [...] = PHENCU) 25 ng/m L COMPREHENSIVE METABOLIC [id number] 09:42:00 Test Item Value Reference Range Interpretation Comments SODIUM (test code = 143 mEq/L 135-145 N NA) POTASSIUM (test code 2.7 mEq/L 3.5-5.0 LL RESULTS VERIFIED BY = K) REPEAT ANALYSIS RESULTS CALLED TO ELVIN GUZMANREAD BACK & CONFIRME D? YES.BY F.LAB.EL B1 09/29/20924. CHLORIDE (test code 105 mEq/L [...] 46-116 N TOTAL (test code = ALKP) [id number] 09:42:00 Test Item Value Reference Range Interpretation Comments TROPONIN-I (test code = TROPI) 0.053 ng/mL <0.056 N COMPREHENSIVE METABOLIC [id number] 09:25:00 Test Item Value Reference Range Interpretation Comments SODIUM (test code = 143 mEq/L 135-145 N NA) POTASSIUM (test code 2.7 mEq/L 3.5-5.0 LL RESULTS VERIFIED BY = K) REPEAT ANALYSIS RESULTS CALLED TO ELVIN GUZMANREAD BACK & CONFIRME D? YES.BY ASHTYN Estrada 09/29/2018. CHLORIDE (test code 105 mEq/L 100-115 N [...] units/L 46-116 TOTAL (test code = ALKP) [id number] 09:25:00 Test Item Value Reference Range Interpretation Comments TROPONIN-I (test code = TROPI) 0.053 ng/mL <0.056 N UA RFLX MICR CULT IF [id number] 09:21:00 Test Item Value Reference Range Interpretation [...] culture: Suprapubic PainSpecimen Description: CLEAN CATCHCBC W/AUTO [id number] 09:08:00 Test Item Value Reference Range Interpretation [...] REQUIRED (test NORMAL NORMAL code = PLTMR) [id number] 06:36:00 Test Item Value Reference Range Interpretation Comments GLUBED (test code = GLUBED) 82 mg/dL 65-110 N HGB [id number] 04:50:00 Test Item Value Reference Range Interpretation Comments HEMOGLOBIN (test code = HGB) 8.1 g/dL 10.7-13.9 L HEMATOCRIT (test code = HCT) 25.2 % 32.1-42.1 L [id number] 04:43:00 Test Item Value Reference Range Interpretation Comments GLUBED (test code = GLUBED) 98 mg/dL 65-110 N [id number] 12:00:00 Test Item Value Reference Range Interpretation Comments GLUCOSE (test code = GLU) 81 mg/dL 65-110 N AG HEPATITIS B [id number] 14:40:00 Test Item Value Reference Range Interpretation Comments AG HEPATITIS B SURFACE (test code NONREACTIVE NONREACTIVE = HBSAG) : *IS CONSENT FORM SIGNED FOR HIV TESTING? YAB HEPATITIS C [id number] 14:40:00 Test Item Value Reference Range Interpretation Comments AB HEPATITIS C (test code = NONREACTIVE NONREACTIVE HCVAB) SIGNAL TO CUTOFF (test code = 0.07 <0.80 N CUTOFF) : *IS CONSENT FORM SIGNED FOR HIV TESTING? YAB [id number] 14:40:00 Test Item Value Reference Range Interpretation Comments AB TREPONEMA (test code = TREPAB) NONREACTIVE NONREACTIVE : *IS CONSENT FORM SIGNED FOR HIV TESTING? YAB HIV 1 14:40:00 Test Item Value Reference Range Interpretation Comments AB HIV 1 2 (test NONREACTIVE NONREACTIVE [facility] code = IKX08PH) 4th Gen HIV Ag/Ab Combo Screen : [...] and/o r diagnosis of CO VID-19 under Ytrzzhk76 4(b)(1) of the Act, 21 U.S .C. 360bbb-3(b)(1), unless theauthorizatio n is terminated or r evoked sooner. CBC W/AUTO [id number] 13:26:00 Test Item Value Reference Range Interpretation [...] code = PLTMR) POCT URINALYSIS W SPECIFIC [id number] 15:52:00 Test Item Value Reference Range Interpretation [...] POCT U APPEAR (test code = 3267) [facility] URINALYSIS W SPECIFIC [id number] 15:52:00 Test Item Value Reference Range Interpretation [...] POCT U APPEAR (test code = 3267) [facility] URINALYSIS W SPECIFIC [id number] 15:52:00 Test Item Value Reference Range Interpretation [...] POCT U APPEAR (test code = 3267) [facility] URINALYSIS W SPECIFIC [id number] 15:50:00 Test Item Value Reference Range Interpretation [...] POCT U APPEAR (test code = 3267) [facility] URINALYSIS W SPECIFIC [id number] 15:50:00 Test Item Value Reference Range Interpretation [...] POCT U APPEAR (test code = 3267) [facility] URINALYSIS W SPECIFIC [id number] 15:50:00 Test Item Value Reference Range Interpretation [...] POCT U APPEAR (test code = 3267) [facility] URINALYSIS W SPECIFIC [id number] 18:13:00 Test Item Value Reference Range Interpretation [...] 3267) Lab Interpretation (test code = Abnormal 31033-7) [facility] URINALYSIS W SPECIFIC [id number] 21:14:00 Test Item Value Reference Range Interpretation [...] POCT U APPEAR (test code = 3267) [facility] [id number] 07:50:47 Test Item Value Reference Range Interpretation Comments ABO & RH (test code O POSITIVE Performe d at [facility] = 20) [facility] s [address]Qxks Free: [phone] A No. [id number] IAT (test code = Negative Performed a t [facility] 1185) [facility] Blood [facility] [place] s [address]Gfeq Free: [phone] A No. [id number] [facility] AG-AB WITH [id number] 06:35:00 Test Item Value Reference Range Interpretation Comments HIV Negative Negative Semi-quantitative (test code = 68664-6) TERRELL (test code = Non-reactive for HIV-1 TERRELL) antigen and HIV-1/HIV-2 antibodies. ?No laboratory evidence of HIV infection. ?Repeat in 2-4 weeks if acute HIV infection is suspected. [facility] SURFACE [id number] 05:34:00 Test Item Value Reference Range Interpretation Comments HBsAg Semi-Quantitative (test code = Negative Negative 5195-3) [facility] 1 HOUR POST [id number] 05:05:00 Test Item Value Reference Range Interpretation Comments GLUC 1 HR (test code = 3977624859) 98 mg/dL 120-170 L Lab Interpretation (test code = Abnormal 62462-6) [facility] WITH [id number] 04:35:00 Test Item Value Reference Range Interpretation [...] RDW-SD (test code = 43.6 fL 39-49.9 50248-4) RDW-CV (test code = 12.1 % 12-15.5 788-0) PLT (test code = See_Comment [Automated 777-3) message] The sy stem which generated this result transmitted reference range : 166 - 358 10*3/ ?L. The reference r marleen was not used to interpret this result as normal/abnormal . MPV (test code = 9.9 fL 9.5-12.9 07735-6) NRBC/100 WBC (test See_Comment [Automat ed code = 3072935178) message] The system which generated this result transmitted reference range : 0.0 - 10.0 /100 WBCs. The refer ence range was not u sed to interpret th is result as normal/abnormal . NRBC x10^3 (test code <0.01 See_Comment [Auto mated = 9218772662) message] The s ystem which generated this result transmitted reference range : 10*3/?L. The reference range was not used to interpret this result as normal/abnormal . GRAN MAT (NEUT) % 68.9 % (test code = 770-8) IMM GRAN % (test code 0.10 % = 8687498127) LYMPH % (test code = 19.7 % 736-9) MONO % (test code = 8.6 % 5905-5) EOS % (test code = 1.8 % 713-8) BASO % (test code = 0.9 % 706-2) GRAN MAT x10^3(ANC) 4.62 10*3/uL 1.88-7.09 (test code = 6541235219) IMM GRAN x10^3 (test <0.03 0-0.06 code = 2956700365) LYMPH x10^3 (test code 1.32 10*3/uL 1.32-3.29 = 731-0) MONO x10^3 (test code 0.58 10*3/uL 0.33-0.92 = 742-7) EOS x10^3 (test code = 0.12 10*3/uL 0.03-0.39 711-2) BASO x10^3 (test code 0.06 10*3/uL 0.01-0.07 = 704-7) Lab Interpretation Abnormal (test code = 69353-0) [facility] URINALYSIS W SPECIFIC [id number] 15:34:00 Test Item Value Reference Range Interpretation [...] POCT U APPEAR (test code = 3267) [facility] [id number] 15:34:00 Test Item Value Reference Range Interpretation Comments POCT PREG (test code = 1605) Positive On board controls acceptable with C Yes Line (test code = 3575) POCT PREG LOT # (test code = 3577) POCT PREG TEST DATE (test code = 3576) [facility] URINALYSIS W SPECIFIC [id number] 15:34:00 Test Item Value Reference Range Interpretation [...] POCT U APPEAR (test code = 3267) [facility] [id number] 15:34:00 Test Item Value Reference Range Interpretation Comments POCT PREG (test code = 1605) Positive On board controls acceptable with C Yes Line (test code = 3574) POCT PREG LOT # (test code = 3575) POCT PREG TEST DATE (test code = 357) [facility] URINALYSIS W SPECIFIC [id number] 15:34:00 Test Item Value Reference Range Interpretation [...] POCT U APPEAR (test code = 3267) [facility] [id number] 15:34:00 Test Item Value Reference Range Interpretation Comments POCT PREG (test code = 1605) Positive On board controls acceptable with C Yes Line (test code = 3574) POCT PREG LOT # (test code = 3575) POCT PREG TEST DATE (test code = 3576) [facility] Notes Date/Time Note Provider Source 2022-01-15 18:20:00-00:00 [facility]) EMERGENCY PROVIDER REPORT REPORT#:[id number] REPORT STATUS: Signed DATE:01/15/22 TIME: 1819 PATIENT: ABNER NOYOLA UNIT #: [id number] ROOM/BED: AGE: 26 SEX: F PCP PHYS: Jeremiah Fenton MD SERVICE AUTHOR: Humberto Rosen MD * ALL edits or amendments must be made on the [facility]/computer document * HPI-General Illness Free Text HPI Notes Free Text HPI Notes 26 yrs old female requesting medication change f rom cipro to something else because she had reaction to it. Pt did not want further work. General Confirmed Patient Yes Patient Type New patient Initial Greet Date/Time 01/15/22 172 Presentation Chief Complaint medication change for uti [...] 1730 Temp 36.9 01/15 1730 Pulse 97 03/18 1730 Resp 18 03/18 1730 Last Documented: Result Date Time Pulse [...] pH (5 - 9) 6.0 Ur Specific [place] (1.001 - 1.035) 1.025 Urine Protein (NEG) [...] 97 01/15 1730 Resp 18 01/15 1730 All vital [...] PHENAZOPYRIDINE (PYRIDIUM) 100 MG PO Q8H PRN ID N DYSURIA #6 TABS TAKE AFTER MEALS. ONDANSETRON ODT (ZOFRAN ODT) 4 MG PO Q6H PRN PRN NAUSEA/VOMITING ONDANSETRON ODT (ZOFRAN ODT) 4 MG PO Q6H PRN ID N NAUSEA/VOMITING #15 TABS NITROFURANTOIN/NITROFURAN MAC (MACROBID) [...] Referrals Provider Referral: Veto Dean MD Address: [address] [place] [address] Departure Forms WORK/SCHOOL EXCUSE VARIABLE WORK/SCHOOL EXCUSE-CAREGIVER [...] physician or other designated or consulting phys ician as outlined in the discharge instructions. The [...] symptoms should prompt an immediate return [facility] or the closest emergency department or [...] older, D enies tobacco use at 0338 RPT #:[id number] END OF REPORT 2020-11-03 16:04:00-00:00 [id number] [facility] [address], [place] [address] PATIENT NAME: ABNER NOYOLA ADMIT DATE: ACCOUNT NO: [id number] ROOM NO: AGE: 25 SEX: F ADMITTING PHYSICIAN: Jeremiah Fenton MD ATTENDING PHYSICIAN: Jeremiah Fenton MD ADMISSION DATE: 09/23/2020 DISCHARGE DATE: 09/25/2020 ADMISSION DIAGNOSES: 1. A 38-week . 2. Previous section. PROCEDURE PERFORMED: Repeat low transverse panchito burke delivery. DISCHARGE MEDICATIONS: Include [place], Motrin, an d multivitamin. DISPOSITION: The patient [...] family. She was scheduled for followup in [facility] office in 2 weeks for incision check. Dictated By: Jeremiah Fenton MD WT: DS:FLANNY/JOE/NTS Conf#: [id number]/DID#: [id number] Authenticated by Jeremiah Fenton MD On 2020 08:14:15 AM Electronically Signed by Jeremiah Fenton MD o n 11/05/20 at 0814 PATIENT NAME: ABNER NOYOLA [id number] 2020-11-03 16:02:00-00:00 [id number] [facility] [address], [place] [address] PATIENT NAME: ABNER NOYOLA ADMIT DATE: 09/23 ACCOUNT NO: [id number] ROOM NO: AGE: 25 SEX: F ADMITTING PHYSICIAN: Jeremiah [...] uterus, ovaries, and tubes. 2. Cephalic female , A pgars 7 and 8, weight 9 pounds 2 ounces, to nursery. 3. Hemostatic. 4. All counts correct. ANESTHESIA: Combined spinal epidural. COMPLICATIONS: None. PATHOLOGY: None. SURGEON: Jeremiah Fenton MD [employer] MECHANIC: Iraj Giordano MD STATEMENT OF MEDICAL NECESSITY: [...] incision was extended PATIENT NAME: ABNER NOYOLA [id number] bilaterally. Muscles dissect ed off back of [...] hem ostatic. Peritoneum was reapproximated with 2-0 furniture stainer елена suture. Muscles reapproximated with 2-0 chromic [...] By: Jeremiah Fenton MD WT: OP:F.HIM/SHEGR/NTS Conf#: [id number]/DID#: [id number] Authenticated by Jeremiah Fenton MD On 2020 08:14:16 AM Electronically Signed by Jeremiah Fenton MD o n 11/05/20 at 0814 PATIENT NAME: ABNER NOYOLA [id number] 2020-09-29 09:55:00-00:00 [facility]) EMERGENCY PROVIDER REPORT REPORT#:[id number] REPORT STATUS: Signed DATE:09/29/20 TIME: 954 PATIENT: ABNER NOYOLA UNIT #: [id number] ROOM/BED: AGE: 25 SEX: F PCP PHYS: Jeremiah Fenton MD SERVICE AUTHOR: Angel Rosa MD * ALL edits or amendments must be made on the [facility]computer document * HPI-General Illness General Initial Greet [...] Delivery Room air 09/29 841 Temp 36.6 11/30 0841 Pulse 86 09/29 841 Resp 16 09/29 841 Last Documented: Result Date Time Pulse Ox 100 09/29 1212 B/P 148/96 09/29 1212 B/P Mean 113 09/29 1212 Temp 36.7 09/29 1212 Pulse 77 09/29 121 Resp 18 09/29 1212 O2 Delivery Room [...] NL, No rash, Dry, Intact Genitourinary General Attending Psychiatrist present, Exam deferred, Caret quynh refused exam [...] % (Auto) (14.3 - 34.3 %) 18.7 Hanson % (Auto) (5.1 - 10.4 %) 5.4 Eos % (Auto) (0.1 - 3.0 %) 2.2 Baso % (Auto) (0.1 - 1.0 %) 0.4 Neut # (Auto) (K/mm3) 5.2 Lymph # (Auto) (K/mm3) 1.4 Hanson # (Auto) (K/mm3) 0.4 Eos # (Auto) [...] pH (5 - 9) 7.0 Ur Specific [place] (1.001 - 1.035) 1.005 Urine Protein (NEG) [...] Low lung volumes. No consolidative pneumonia. SL: [id number] Impression By: Maryann Lewis MD CAT SCAN - CT ANGIO [...] Chloride 50 ML .STK-MED ONE 09/29 1053 DC 09/29 IV 09/29 1054 1053 Sodium Chloride 50 ML .STK-MED ONE 09/29 1052 D C 09/29 IV 09/29 1053 1052 Patient Discharge Departure Vital Signs/Condition Vital Signs First Documented: Result Date Time Pulse Ox 100 09/29 0841 B/P 149/86 09/29 0841 B/P Mean 107 09/29 0841 O2 Delivery Room air 09/29 08 Temp 36.6 09/29 0841 Pulse 86 09/29 [...] ED Pot assium Deficiency at 0659 RPT #:[id number] END OF REPORT 2020-09-29 08:48:00-00:00 [id number] [facility] [address] [place] [address] PATIENT NAME: ABNER NOYOLA ADMIT DATE: 09/29 ACCOUNT NO: [id number] ROOM NO: AGE: 25 SEX: F ADMITTING PHYSICIAN: ATTENDING PHYSICIAN: Kervin Rosa MD Order: [id number] Test Reason : CHEST PAIN Test Date/Time Stamp: TueSep 29 2020 08:48:33 Blood Pressure : / mmHG Vent. Rate : 083 BPM Atrial Rate : 083 BPM P-R Int : 176 ms QRS Dur : 088 ms QT Int : 388 ms P-R-T Axes : 059 046 062 degree s QTc Int : 455 ms Normal sinus rhythm Possible Left atrial enlargement Borderline ECG No previous ECGs available Confirmed by EBONY HERNDON MD ([id number]) on 09/30/20 11:58:30 AM Referred By: Self Referred Confirmed by:EBONY ARZATE MD at 1152 PATIENT NAME: ABNER NOYOLA [id number] 2020-09-25 12:17:00-00:00 [facility] ([facility]) OB Postpart Progr Note REPORT#:[id number] REPORT STATUS: Signed DATE:09/25/20 TIME: 1217 PATIENT: ABNER NOYOLA UNIT #: [id number] ROOM/BED: : 93 AGE: 25 SEX: F ATTEND: Leah Fenton MD ADM AUTHOR: Kalli Kimble MD * ALL edits or amendments must be made on the [facility]computer document * Subjective Subjective Admission EGA: Weeks: [...] Pulse Resp B/P B/P Mean Pulse Ox FiO 2 09/24-09/25 97.5-98.4 86-94 18 116-135/79-86 91 .6-102.8 99 Last Documented: Result Date Time B/P 116/79 09/25 08 Temp 97.8 09/25 0838 Pulse 86 09/25 0838 Resp 18 09/25 08 B/P Mean 91.6 09/25 0820 Pulse Ox [...] (32.2 - 34.1 gm/dL) 31.9 L 09/19 104 RDW (12.4 - 16.5 %) 13.2 09/19 104 Plt Count (133 - 385 K/mm3) 324 09/19 104 MPV (9.1 - 12.7 fl) 10.1 09/19 104 Neut % (Auto) (56.5 - 79.4 %) 77.5 09/19 104 Lymph % (Auto) (14.3 - 34.3 %) 14.9 09/19 1042 Hanson % (Auto) (5.1 - 10.4 %) 6.1 09/19 104 Eos % (Auto) (0.1 - 3.0 %) 0.8 09/19 104 Baso % (Auto) (0.1 - 1.0 %) 0.3 09/19 104 Neut # (Auto) (K/mm3) 5.5 09/19 104 Lymph # (Auto) (K/mm3) 1.1 09/19 104 Hanson # (Auto) (K/mm3) 0.4 09/19 104 Eos # (Auto) (K/mm3) 0.06 09/19 104 Baso # (Auto) (K/mm3) 0.0 09/19 104 Serology Treponema pallidum Ab (NONREACTIVE) NONREACTIVE 09/19 104 Hep Bs Antigen (NONREACTIVE) NONREACTIVE 09/19 104 Hepatitis C Antibody (NONREACTIVE) NONREACTIVE 09/19 1042 Hep C Ab Signal/Cutoff (<0.80) 0.07 09/19 104 HIV 1 2 Antibody (NONREACTIVE) NONREACTIVE 09/01 0 2 SARS-CoV-2 Ag (Rapid) (NEGATIVE) NEGATIVE 09/19 1050 Laboratory Tests: 09/25 0623 Chemistry POC Glucose (65 - 110 mg/dL) 82 Results: labs reviewed, vital signs stable Diagnosis, Assessment Plan Diagnosis, Assessment Plan Assessment: nml progress, GDM- diet c ontrolled Plan: routine care, discharge today Plan discussed with: patient, spouse/partner at 1219 RPT #:[id number] END OF REPORT 2020-09-24 08:27:00-00:00 [facility]) OB Postpart Progr Note REPORT#:[id number] REPORT STATUS: Signed DATE:09/24/20 TIME: 826 PATIENT: ABNER NOYOLA UNIT #: [id number] ROOM/BED: : 93 AGE: 25 SEX: F ATTEND: Leah Fenton MD ADM AUTHOR: Jeremiah Fenton MD * ALL edits or amendments must be made on the [facility] [employer]/computer document * Subjective Subjective Admission EGA: Weeks: [...] low FiO2 Mean Ox Delivery Rate 09/24 0422 97.9 98 20 109/72 09/23 1956 99.2 [...] care, discharge tomorro w at 0827 RPT #:[id number] END OF REPORT 2020-09-23 13:21:00-00:00 [facility] OB Delivery Note REPORT#:[id number] REPORT STATUS: Signed DATE:09/23/20 TIME: 1321 PATIENT: ABNER NOYOLA UNIT #: [id number] [address] AGE: 25 SEX: F ATTEND: Baldomero Fenton MD ADM AUTHOR: Jeremiah Fenton MD [...] prior to arrival: Antibiotic prophylaxis given: Yes [place] evaluation at delivery: Delivery date A: Delivery time A: Birthweight (gm) infant A: Weight (lb) infant A: Weight (oz) A: Gender infant A: 1 minute A: 5 minutes infant A: 10 minutes infant A: Cord pH obtained A: Vacuum time A: Vacuum # pulls infant A: Vacuum # popoffs infant A: QBL at delivery: __ Provider comments on imported nursing data: [] B (add'l data): The data set between the solid lines has been im ported from nursing documentation. Any exceptions have been noted be low under Provider comments. ___ Delivery date infant B: Delivery time B: Birthweight (gm) B: Weight (lb) B: Weight (oz) infant B: Gender B: 1 minute infant B: 5 minutes infant B: 10 minutes B: Cord pH obtained B: Vacuum time infant B: Vacuum # pulls infant B: Vacuum # popoffs infant B: ____ Provider comments on imported nursing data: [] Pre-delivery GBS status: GBS status: positive Prophylaxis administered: cephazolin evaluation at delivery: NRP certified [facility] Admission EGA: Weeks: 39 Days: 0 Baby A Information Baby A information Delivery date: 09/23/20 Delivery time: 1247 status: live born Wt of baby (lbs/oz): 9/2 Gender: female 1 minute: 7 5 minutes: [...] to op delivery Mother's condition: mother stable 's condition: infant stable in nursery Op/Inv Proc Note - Brief )( Procedure(s) performed: repeat low transverse c/s )( Primary Surgeon: Edward Fenton )( Customer Service Cashier(s): Solitario Giordano )( Pre-procedure diagnosis: 38 wks, [...] at delivery (ml's): 700 at 1326 RPT #:[id number] END OF REPORT 2020-09-23 11:34:00-00:00 [facility] ([facility]) OB Admission / H P REPORT#:[id number] REPORT STATUS: Signed DATE:09/23/20 TIME: 1134 PATIENT: ABNER NOYOLA UNIT #: [id number] ROOM/BED: [facility] : 93 AGE: 25 SEX: F ATTEND: Leah Fenton MD ADM AUTHOR: Jeremiah Fenton MD * ALL edits or amendments must be made on the [facility]computer document * OB History Chief complaint: scheduled [...] Resp B/P B/P Mean Pulse Ox FiO2 11/24 98.3 90 139/90 107.0 Patient Weight Weight [...] C/S, for repeat Plan: at 1137 RPT #:[id number] END OF REPORT
[2023-03-21] MEDS ORDERED: MORPHINE 4 MG/ML SYR ONE ×2 (20:18→22:02)
[2023-03-21] MEDS ORDERED: ONDANSETRON 4 MG/2 ML VIAL ONE (20:18)
[2023-03-21] MEDS ORDERED: KETOROLAC 30 MG/ML INJ ONE (20:18)
[2023-03-21 20:52] LABS: Absolute Lymphocytes (CBC) 0.9 K/uL (0.7-4.9); Hematocrit 36.8 % (36.0-45.0); Lymphocytes % 7.7 % (15.3-44.8); MCV 93.5 fL (80-100); RBC Red Blood Cell Count 3.94 M/uL (3.86-4.86)
[2023-03-21 20:53] LABS: Specific Gravity 1.028 (1.005-1.030); Urine Bacteria None Seen /HPF (<20); Urine Bilirubin NEGATIVE (Negative); Urine Blood Trace (Negative); Urine Clarity Clear (Clear); Urine Color Yellow (Yellow); Urine Glucose NEGATIVE (Negative); Urine Mucus Slight /HPF (None Seen); Urine Protein 1+ (Negative); Urine Urobilinogen Normal (Normal); Urine pH 5.5 (5.0-7.0)
[2023-03-21 20:56] LABS: Specific Gravity 1.028 (1.005-1.030)
[2023-03-21 21:37] LABS: Albumin 3.6 g/dL (3.4-5.0); Bilirubin Total 0.4 mg/dL (0.2-1.0); Potassium 2.8 mEq/L (3.5-5.1)
[2023-03-21] MEDS ORDERED: POTASSIUM CL SA 10 MEQ TAB PO ONE (23:19)
--- NOTE | 2023-03-21 23:24 | ER ---
Nurse's Notes [facility] Name: Kasey Levy Age: 27 yrs Sex: Female : 1995 Arrival Date: 03/21/2023 Time: 20:06 Bed 12 Private MD: Diagnosis: Right ureteral stone, 3 mm right kidney stone, right hydronephrosis, renal colic Presentation: 03/21 20:13 Chief complaint: EMS states: pt was seen last night in ED. DX right kidney stone. toned lg3 out for unbearable pain. pt complains of increased right sided flank pain radiating to lower pelvis. 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 Coronavirus screen: Client denies travel out of the [place] in the last 14 days. At this time, the client does not indicate any symptoms associated with coronavirus-19. Ebola Screen: No symptoms or risks identified at this time. Initial Sepsis Screen: Does the patient meet any 2 criteria? No. Patient's initial sepsis screen is negative. Does the patient have a suspected source of infection? No. Patient's initial sepsis screen is negative. Risk Assessment: Do you want to hurt yourself or someone else? Patient reports no desire to harm self or others. Onset of symptoms was March 20, 2023. 20:13 Method Of Arrival: EMS: [facility] lg3 20:13 Acuity: MICHELLE 3 lg3 Triage Assessment: 20:15 General: Appears in no apparent distress. uncomfortable, Behavior is calm, cooperative. lg3 Pain: Complains of pain in right flank Pain radiates to pelvis. EENT: No deficits noted. No signs and/or symptoms were reported regarding the EENT system. Neuro: No deficits noted. [place] Agitation-Sedation Scale (RASS): 0 - Alert and Calm Level of Consciousness is awake, alert, obeys commands, Oriented to person, place, time, situation. Cardiovascular: No deficits noted. Denies chest pain, shortness of breath, Capillary refill < 3 seconds Clubbing of nail beds is absent JVD is absent Patient's skin is warm and dry. Respiratory: No deficits noted. Airway is patent Respiratory effort is even, unlabored, Respiratory pattern is regular, symmetrical. GI: Abdomen is round non-distended, Bowel sounds present X 4 quads. Abd is soft X 4 quads Abdomen is tender to palpation in suprapubic area. : Reports burning with urination, cramping, urinary frequency. Derm: No deficits noted. No signs and/or symptoms reported regarding the dermatologic system. Skin is intact, is healthy with good turgor, Skin is dry, Skin is normal, Skin temperature is warm. Musculoskeletal: No deficits noted. No signs and/or symptoms reported regarding the musculoskeletal system. Circulation, motion, and sensation intact. Range of motion: intact in all extremities. 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 - Social history:: Smoking status: Patient denies any tobacco usage or history of. Patient uses alcohol, occasionally. - Family history:: not pertinent. Screenin:17 [facility] ED Fall Risk Assessment (Adult) History of falling in the last 3 months, lg3 including since admission No falls in past 3 months (0 pts). Abuse screen: Denies threats or abuse. Denies injuries from another. Nutritional screening: No deficits noted. Tuberculosis screening: No symptoms or risk factors identified. Assessment: 20:17 General: see triage assessment. lg3 21:52 Pain: Complains of pain in right flank Pain radiates to suprapubic area Pain currently lg3 is 9 out of 10 on a pain scale. Noted to be crying, grimacing, moaning, resistant to movement, Also complains of nausea. 23:52 Reassessment: Patient appears in no apparent distress at this time. No changes from lg3 previously documented assessment. Patient and/or family updated on plan of care and expected duration. Pain level reassessed. Patient is alert, oriented x 3, equal unlabored respirations, skin warm/dry/pink. Patient states symptoms have improved. Vital Signs: 20:13 BP 138 / 88; Pulse 84; Resp 18 S; Temp 98.7(TE); Pulse Ox 99% on R/A; Weight 107.95 kg lg3 (R); Height 5 ft. 7 in. (R); Pain 10/10; 23:52 BP 131 / 84; Pulse 86; Resp 17 S; Pulse Ox 99% on R/A; lg3 20:13 Body Mass Index 37.28 (107.95 kg, 170.18 cm) lg3 20:13 Pain Scale: Adult lg3 ED Course: 20:08 Patient arrived in ED. lg3 20:09 Singh Sky MD is Attending Physician. sp4 20:12 Keli Francois, AJAY is Primary Nurse. lg3 20:15 Triage completed. lg3 20:15 Arm band placed on right wrist. lg3 20:17 Patient has correct armband on for positive identification. Bed in low position. Call lg3 light in reach. Side rails up X 1. Client placed on continuous cardiac and pulse oximetry monitoring. NIBP monitoring applied. Door closed. Noise minimized. Warm blanket given. 20:17 Maintain EMS IV. Dressing intact. Good blood return noted. Site clean \T\ dry. Gauge \T\ lg 3 site: 20G RAC. 20:31 CBC with Diff Sent. lg3 20:31 Test, Urine Sent. lg3 20:31 Urinalysis W/Microscopic Sent. lg3 20:31 CMP Sent. lg3 23:23 Nolan Diaz MD is Referral Physician. sp4 23:52 No provider procedures requiring assistance completed. IV discontinued, intact, lg3 bleeding controlled, No redness/swelling at site. Pressure dressing applied. Administered Medications: 20:22 Drug: morphine IVP or IV 4 mg Route: IVP; Infused Over: 4 mins; Site: right antecubital;lg3 23:50 Follow up: Response: No adverse reaction lg3 20:22 Drug: Ketorolac IVP 30 mg Route: IVP; Site: right antecubital; lg3 23:50 Follow up: Response: No adverse reaction lg3 20:22 Drug: Ondansetron IVP 4 mg Route: IVP; Site: right antecubital; lg3 23:51 Follow up: Response: No adverse reaction lg3 22:07 Drug: morphine IVP or IV 8 mg Route: IVP; Infused Over: 4 mins; Site: right antecubital;lg3 23:49 Follow up: Response: No adverse reaction; Marked relief of symptoms lg3 23:31 Drug: Potassium Chloride PO 40 mEq Route: PO; lg3 23:49 Follow up: Response: No adverse reaction lg3 23:49 Drug: [place] PO 10 mg-325 mg 1 tabs Route: PO; lg3 23:50 Follow up: Response: No adverse reaction lg3 23:49 Drug: diphenhydrAMINE PO 25 mg Route: PO; lg3 23:50 Follow up: Response: No adverse reaction lg3 Medication: 23:52 VIS not applicable for this client. lg3 Outcome: 23:23 Discharge ordered by . sp4 23:52 Discharged to home ambulatory. lg3 23:52 Condition: stable 23:52 Discharge instructions given to patient, Instructed on discharge instructions, follow up and referral plans. medication usage, Demonstrated understanding of instructions, follow-up care, medications, Prescriptions given X 2. 23:53 Patient left the ED. lg3 Signatures: Keli Francois RN RN lg3 Singh Sky MD MD sp4
--- NOTE | 2023-03-21 23:25 | EDPHYS ---
Physician Documentation [facility] Name: Kasey Levy Age: 27 yrs Sex: Female : 1995 Arrival Date: 03/21/2023 Time: 20:06 Bed 12 Private MD: ED Physician Singh Sky HPI: 03/21 21:38 This 27 yrs old Female presents to ER via EMS with complaints of pain. sp4 21:48 27-year-old female with history of renal stones also history of gastric sleeve on sp4 02/16/2023, presents with acute worsening of right flank pain and right back pain associated with the recent kidney stone. Patient was here on 03/21/2023 at 0031 and was discovered to have 3 mm right UVJ stone resulting in moderate right hydronephrosis and hydroureter. She was managed for pain and given p.o. Flomax. She presents now with EMS with worsening right flank and right back pain. Patient is desiring pain control. 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 - Social history:: Smoking status: Patient denies any tobacco usage or history of. Patient uses alcohol, occasionally. - Family history:: not pertinent. ROS: 21:48 Constitutional: Negative for fever, chills, and weight loss, Eyes: Negative for injury, sp4 pain, redness, and discharge, ENT: Negative for injury, pain, and discharge, Neck: Negative for injury, pain, and swelling, Cardiovascular: Negative for chest pain, palpitations, and edema, Respiratory: Negative for shortness of breath, cough, wheezing, and pleuritic chest pain, Abdomen/GI: Negative for abdominal pain, nausea, vomiting, diarrhea, and constipation, positive for right flank pain Back: Negative for injury positive for right flank pain radiating into the right back : Negative for injury, bleeding, discharge, and swelling, positive for right flank pain MS/Extremity: Negative for injury and deformity, Skin: Negative for injury, rash, and discoloration, Neuro: Negative for headache, weakness, numbness, tingling, and seizure, Psych: Negative for depression, anxiety, Allergy/Immunology: Negative for hives, rash, and allergies Endocrine: Negative for neck swelling, polydipsia, polyuria, polyphagia, and weight changes Hematologic/Lymphatic: Negative for swollen nodes, abnormal bleeding, and unusual bruising Exam: 21:48 Constitutional: This is a well developed, well nourished patient who is awake, alert, sp4 , uncomfortable appearing female Head/Face: Normocephalic, atraumatic. Eyes: Pupils equal round and reactive to light, extra-ocular motions intact. Lids and lashes normal. Conjunctiva and sclera are not injected. Cornea within normal limits. Periorbital areas with no swelling, redness, or edema. ENT: Nares patent. No nasal discharge, no septal abnormalities noted. Tympanic membranes are normal and external auditory canals are clear. Oropharynx with no redness, swelling, or masses, exudates, or evidence of obstruction, uvula midline. Mucous membranes moist. Neck: Trachea midline, no thyromegaly or masses palpated, and no cervical lymphadenopathy. Supple, full range of motion without nuchal rigidity, or vertebral point tenderness. No Meningismus. Chest/axilla: Normal chest wall appearance and motion. Nontender with no deformity. No lesions are appreciated. Cardiovascular: Regular rate and rhythm with a normal S1 and S2. No gallops, murmurs, or rubs. Normal PMI, no JVD. No pulse deficits. Respiratory: Lungs have equal breath sounds bilaterally, clear to auscultation and percussion. No rales, rhonchi or wheezes noted. No increased work of breathing, no retractions or nasal flaring. Abdomen/GI: Soft, non-tender, with normal bowel sounds. No distension or tympany. No guarding or rebound. No evidence of tenderness throughout. Back: No spinal tenderness. No costovertebral tenderness. Skin: Warm, dry with normal turgor. Normal color with no rashes, no lesions, and no evidence of cellulitis. MS/ Extremity: Pulses equal, no cyanosis. Neurovascular intact. Full, normal range of motion. Neuro: Awake and alert, GCS 15, oriented to person, place, time, and situation. Cranial nerves II-XII grossly intact. Motor strength 5/5 in all extremities. Sensory grossly intact. Psych: Awake, alert, with orientation to person, place and time. Behavior, mood, and affect are within normal limits Vital Signs: 20:13 BP 138 / 88; Pulse 84; Resp 18 S; Temp 98.7(TE); Pulse Ox 99% on R/A; Weight 107.95 kg lg3 (R); Height 5 ft. 7 in. (R); Pain 10/10; 23:52 BP 131 / 84; Pulse 86; Resp 17 S; Pulse Ox 99% on R/A; lg3 20:13 Body Mass Index 37.28 (107.95 kg, 170.18 cm) lg3 20:13 Pain Scale: Adult lg3 MDM: 20:34 Patient medically screened. sp4 21:48 Data reviewed: vital signs, nurses notes, old medical records, lab test result(s), sp4 radiologic studies, CT scan. 23:21 Differential Diagnosis Recurrent kidney stone pain. ED course: Patient CT report from 4 03/21/2023 at 0031 reveals 3 mm right UVJ stone resulting in moderate right hydronephrosis hydroureter. Patient was managed in the emergency room with pain medications and IV Toradol. Patient has improved symptomatically. Patient will be prescribed [place] 10 as needed for pain with Toradol as needed for pain with Zofran as needed for nausea. She will be advised to take the Flomax as well once a day. I will advise follow-up with urologist as well for outpatient follow-up. This time patient is stable for discharge home. 03/21 20:10 Order name: CMP; Complete Time: 23:06 4 03/21 20:10 Order name: Urinalysis W/Microscopic; Complete Time: 23:06 4 03/21 20:10 Order name: Test, Urine; Complete Time: 23:06 4 03/21 20:11 Order name: CBC with Diff; Complete Time: 23:06 4 Administered Medications: 20:22 Drug: morphine IVP or IV 4 mg Route: IVP; Infused Over: 4 mins; Site: right antecubital;lg3 23:50 Follow up: Response: No adverse reaction lg3 20:22 Drug: Ketorolac IVP 30 mg Route: IVP; Site: right antecubital; lg3 23:50 Follow up: Response: No adverse reaction lg3 20:22 Drug: Ondansetron IVP 4 mg Route: IVP; Site: right antecubital; lg3 23:51 Follow up: Response: No adverse reaction lg3 22:07 Drug: morphine IVP or IV 8 mg Route: IVP; Infused Over: 4 mins; Site: right antecubital;lg3 23:49 Follow up: Response: No adverse reaction; Marked relief of symptoms lg3 23:31 Drug: Potassium Chloride PO 40 mEq Route: PO; lg3 23:49 Follow up: Response: No adverse reaction lg3 23:49 Drug: [place] PO 10 mg-325 mg 1 tabs Route: PO; lg3 23:50 Follow up: Response: No adverse reaction lg3 23:49 Drug: diphenhydrAMINE PO 25 mg Route: PO; lg3 23:50 Follow up: Response: No adverse reaction lg3 Disposition Summary: 03/21/23 23:23 Discharge Ordered Location: Home sp4 Problem: new sp4 Symptoms: have improved sp4 Condition: Stable sp4 Diagnosis - Right ureteral stone, 3 mm right kidney stone, right hydronephrosis, renal colic sp4 Followup: sp4 - With: Nolan Diaz MD - When: 7 - 10 days - Reason: Recheck today's complaints Discharge Instructions: - Discharge Summary Sheet sp4 - Kidney Stones, [id number] sp4 Forms: - Prescription Opioid Use sp4 Prescriptions: - ketorolac 10 mg Oral tablet - take 1 tablet by ORAL route every 8 hours PRN pain; 30 tablet; Refills: 0, sp4 Product Selection Permitted - Zofran 4 mg Oral Tablet - take 1 tablet by ORAL route every 6 hours As needed PRN nausea; 30 tablet; sp4 Refills: 0, Product Selection Permitted Signatures: Dispatcher [employer] Keli Lee RN RN lg3 Singh Sky MD MD sp4
[2023-03-21] MEDS ORDERED: DIPHENHYDRAMINE 25 MG TAB/CAP ONE (23:47)
[2023-03-21] MEDS ORDERED: HYDROCODONE/APAP 10/325 TAB ONE (23:48)
[2023-03-22 00:52] VITALS: TEMP 98.7; O2SAT 99
[2023-03-22 00:54] VITALS: BP 131/84
== END 2023-03-21 23:53 | disposition home or self-care (01) ==
LOC: ER 20:06
DX: N13.2 Hydronephrosis with renal and ureteral calculous obstruction (principal); N23 Unspecified renal colic
CPT/HCPCS: 85025; 81001; 36415; 81025; 80053; J2405

== ENCOUNTER 2023-06-08 20:24 | Emergency (ER) | payer OTHER ==
--- OUTSIDE RECORDS SUMMARY | 2023-06-08 20:34 | XMS REPORT | Continuity of Care Document ---
:1995 Author Organization [facility] t Address [address] [place] [address] [address] [place] [address] Care Team Providers Name Role Phone Deb Rider Primary Care Physician LOY CHAKRABORTY Attending Clinician Unavailable Jeremiah Fenton Attending Clinician Unavailable Gicora_Mohan Attending Clinician Unavailable Shaw Hanson Attending Clinician SHAW HANSON Attending Clinician Unavailable DILEEP SAUNDERS Attending Clinician Unavailable Dileep Saunders PA-C Attending Clinician 2, [facility] Attending Clinician Unavailable Doctor Unassigned, [place] Attending Clinician Unavailable Ebony Chan Attending Clinician Unavailable JOSE WATT Attending Clinician Unavailable ANNIE ELLIOTT Attending Clinician Unavailable Visit, Analilia Nurse Attending Clinician Unavailable Annie Giraldo Attending Clinician Lab, Analilia Attending Clinician Unavailable Ultrasound, Niko Attending Clinician Unavailable Kraig Kan MD Attending Clinician FELICITAS VUONG Attending Clinician Unavailable Risk, Ree-Wmdsl-Nx/High Attending Clinician Unavailable Felicitas Rausch Attending Clinician Jeremiah Fenton Admitting Clinician Unavailable Gidvani_B Admitting Clinician Unavailable Shaw Hanson Admitting Clinician [phone] SHAW HANSONARIA Admitting Clinician Unavailable KNOW, DOES_NOT Admitting Clinician Unavailable Payers Payer Name Policy Type Policy Number Effective Date Expiration Date S pooja [facility] MEDICAID STAR [id number] 2020 00:00:00 [facility] [id number] 2020 CHOICE (MEDICAID 00:00:00 [facility] [id number] 2020 CHOICE [place] STAR 00:00:00 MED[place]ID OF [place] [id number] 2020 00:00:00 Problems Condition Condition Condition Status Onset Resolution Last Treating Co mments Source Name Details Category Date Date Treatment Clinician Date E603.31 E66. Diagnosis Active 2023-02-16 Me moria Active 01-31 15:53:00 l 01/31/2023 00:00: Christian anderson [address] LAP LAP Diagnosis Active 2023-02-18 Mem oria GASTRIC GASTRIC 01-31 12:11:00 l SLEEVE, SLEEVE, 00:00: [place] E66.01 E66.01 00 Active 01/31/2023 [facility] EGD EGD Diagnosis Active 2022-11-17 Mem oria Active 11-05 06:10:00 l 11/05/2022 00:00: Christian anderson [place] [address] [place] K21.9 K21.9 Diagnosis Active 2022-11-16 Mem oria Active 11-05 14:46:00 l 11/05/2022 00:00: Christian anderson [facility] 00 [place] Adult ADHD Adult ADHD Disease Active 2020-0 U nivers 5-28 ity of 00:00: [place] [address] Medical Branch Congestion Congestion Disease Active 2020-0 U nivers of nasal of nasal 5-12 ity of sinus sinus 00:00: [place] [address] Medical Branch Maternal Maternal Disease Active 2020-0 Overview: Un ksy varicella, varicella, 4-16 Formattin ity of non-immune [...] Medical Branch Disease Disease Problem Resolve 2023-02-14 Memoria caused by caused by d 13:17:38 l 2018-nCoV nCo Herm jing Resolved Problem 02/14/2023 [facility] Gestationa Gestation Problem Resolve 2023-02-14 Memoria l diabetes al d 13:17:38 l mellitus diabetes Christian n (disorder) mellitus (disorder) Resolved Problem 02/14/2023 [facility] Heartburn Heartburn Problem Resolve 2023-02-14 Memoria (finding) (finding) d 13:17:38 l Resolved Haroldo Problem 02/14/2023 [facility] Tachycardi Tachycard Problem Resolve 2023-02-14 Memoria a ia d 13:17:38 l (finding) (finding) Herm jing Resolved Problem 02/14/2023 [facility] Anxiety Anxiety Problem Active 2023-02-19 Me moria (finding) (finding) 23:37:27 l Active Haroldo Problem 02/19/2023 [facility] Attention Attention Problem Active 2023-02-19 Memoria deficit deficit 23:37:27 l hyperactiv hyperactiv He rmann ity ity disorder disorder (disorder) (disorder) Active Problem 02/19/2023 [facility] Body mass Body mass Problem Active 2023-02-19 Memoria index 30+ index 30+ 23:37:27 l - obesity - obesity Herm jing (finding) (finding) Active Problem 02/19/2023 BMI=39 [facility] Does use Does use Problem Active 2023-02-19 Memoria contact contact 23:37:27 l lenses lenses Haroldo (finding) (finding) Active Problem 02/19/2023 [facility] Lalito Problem Active 2023-02-19 Me moria thyroiditi Lalito 23:37:27 l s thyroiditi Christian n (disorder) s (disorder) Active Problem 02/19/2023 [facility] Sleep Sleep Problem Active 2023-02-19 Memor ia apnea apnea 23:37:27 l (finding) (finding) Herm jing Active Problem 02/19/2023 [facility] History of History Problem Active 2023-02-19 Memoria bariatric of 23:37:27 l surgical bariatric [place] nn procedure surgical (situation procedure ) (situation ) Active Problem 02/19/2023 [facility] MORBID MORBID Diagnosis Active 2023-02-18 Me moria (SEVERE) (SEVERE) 12:11:00 l OBESITY OBESITY [place] DUE TO DUE TO EXCESS CA EXCESS CA Active [facility] Allergies, Adverse Reactions, Alerts Allergy Allergy Status Severity Reaction(s) Onset Inactive Treating Comm ents Source Name Type Date Date Clinician No Known DA Active U [facility] [place] No Known DA Active U 2019-10 [facility] Allergie 1-30 [facility] [place] No Known DA Active U 2019-10 [facility]ie 1-30 [facility] [place] No Known DA Active U 2019-10 [facility] Allergie 1-24 [facility] [place] No Known DA Active U 2019-10 [facility] Allergie 1-24 [facility] [place] NO KNOWN Drug Active Univers ALLERGIE Class ity of S [place] [facility] Social History Social Habit Start Date Stop Date Quantity Comments Source ASSERTION 2020-01-08 University of 00:00:00 [facility] Branch History of Passive smoker University of tobacco use [facility] History SDOH [facility] Alcohol Frequency History [facility] Alcohol Std Drinks History [facility] Alcohol Binge Exposure to 2022-10-30 2022-11-09 Not sure University of SARS-CoV-2 00:00:00 09:41:00 [facility] ([facility] Industry Tobacco use and 2022-11-09 2022-11-09 Smokeless tobacco Un iversity of exposure 00:00:00 00:00:00 non-user [facility] Alcohol Comment 2022-11-09 2022-11-09 ocassional [facility] of 00:00:00 00:00:00 [facility] Alcohol intake 2022-06-29 2022-06-29 .14 /d [facility] 00:00:00 00:00:00 Sex [birth year] [facility] 00:00:00 00:00:00 Smoking Status Start Date Stop Date Source Unknown if ever smoked [facility] Tobacco smoking status [facility] Medications Ordered Filled Start Stop [...] mL oral mL, 0 liquid Refill(s) Tylenol 0 Yes 10 ml, PO, [place] jocelin with 4-20 Q6H, PRN l Codeine 120 15:54: Pain, X 7 H ermann mg-12 mg/5 00 day, # 120 mL oral mL, 0 liquid Refill(s) Tylenol 0 Yes 10 ml, PO, [place] jocelin with 4-20 Q6H, PRN l Codeine 120 15:54: Pain, X 7 H ermann mg-12 mg/5 00 day, # 120 mL oral mL, 0 liquid Refill(s) Zofran 4 mg 2023-0 Yes 4 mg = 1 Me moria oral tablet 4-20 tab, PO, l 15:53: Q6H, PRN Harold[place] 00 Nausea/Vom iting, X 5 day, # 20 tab, 0 Refill(s), Pharmacy: [facility] [id number], 170.18, cm, 02/09/23 9:39:00 CDT, Height, 117.136, kg, 02/09/23 9:39:00 CDT, Weight Zofran 4 mg 2022-0 Yes 4 mg = 1 Me moria oral tablet 4-20 tab, PO, l 15:53: Q6H, PRN [place] 00 Nausea/Vom iting, X 5 day, # 20 tab, 0 Refill(s), Pharmacy: [facility] [id number], 170.18, cm, 02/09/23 9:39:00 CDT, Height, 117.136, kg, 02/09/23 9:39:00 CDT, Weight Zofran 4 mg 2022-0 Yes 4 mg = 1 Me moria oral tablet 4-20 tab, PO, l 15:53: Q6H, PRN [place] 00 Nausea/Vom iting, X 5 day, # 20 tab, 0 Refill(s), Pharmacy: [facility] [id number], 170.18, cm, 02/09/23 9:39:00 CDT, Height, 117.136, kg, 02/09/23 9:39:00 CDT, Weight Zofran 4 mg 2022-0 Yes 4 mg = 1 Me moria oral tablet 4-20 tab, PO, l 15:53: Q6H, PRN [place] 00 Nausea/Vom iting, X 5 day, # 20 tab, 0 Refill(s), Pharmacy: [facility] [id number], 170.18, cm, 02/09/23 9:39:00 CDT, Height, 117.136, kg, 02/09/23 9:39:00 CDT, Weight heparin 2022-0 Yes 5,000 Memoria 5000 4-13 unit, l units/mL 14:00: Route: [place] injectable 00 SUB-Q, solution Drug form: INJ, [...] 5000 4-13 unit, l units/mL 14:00: Route: [place] injectable 00 SUB-Q, solution Drug form: INJ, Q12H, Dosing Weight 117.273, kg, Start date: 02/10/23 9:00:00 CDT, Duration: 30 day, Stop date: 03/11/23 21:00:00 CDT ceFAZolin 3-0 Yes 3 gm, Memoria 413 Route: l 11:00: IVP, [place] 00 ONCALL, Dosing Weight 117.273, kg, (for patients < 100 kg), Start date: 02/10/23 6:00:00 CDT, Duration: 1 doses or times, ABX Indication : Surgical Prophylaxi s scopolamine 3-0 Yes 1 patch, Me moria 1 mg/72 hr -13 Route: l transdermal 11:00: TOP, Drug H ermann film, 00 Form: extended ERFILM, release Dosing Weight 117.273, kg, PRE OP, Start date: 02/10/23 6:00:00 CDT, Duration: 30 day, Stop date: 03/12/23 5:59:00 CDT ceFAZolin 2023-0 Yes 3 gm, Memoria 4-13 Route: l 11:00: IVP, [place] 00 ONCALL, Dosing Weight 117.273, kg, (for [...] Memoria 4-13 Route: l 11:00: IVP, [place] ONCALL, Dosing Weight 117.273, kg, (for patients [...] gm, Memoria 4-13 Route: l 11:00: IVP, [place] 00 ONCALL, Dosing Weight 117.273, kg, (for [...] day, Stop date: 03/12/23 5:59:00 CDT multivitami 2023-0 Yes Daily, 0 Me moria n 4-12 Refill(s) l 14:24: Vitamin B12 0 Yes 0 Memori a 4-12 Refill(s) l 14:24: multivitami 2022-0 Yes Daily, 0 Me moria n 4-12 Refill(s) l 14:24: Vitamin B12 2022-0 Yes 0 Memori a 4-12 Refill(s) l 14:24: multivitami 2022-0 Yes Daily, 0 Me moria n 4-12 Refill(s) l 14:24: Vitamin B12 0 Yes 0 Memori a [...] = 1 Mem oria 10 mg oral -11 tab, PO, l tablet 17:51: QAM, 0 [place] 00 Refill(s) Vitamin D3 0 Yes 1,250 Memori a 50,000 intl 1-11 microgram l units oral 17:51: = 1 cap, Her weinstein capsule 00 PO, qWeek Tylenol 0 Yes 500 mg, Memoria -11 PO, PRN, 0 l 17:51: Refill(s) Singulair Yes 10 mg = 1 Mem oria 10 mg oral - tab, PO, l tablet 17:51: QAM, 0 Refill(s) Vitamin D3 0 Yes 1,250 Memori a 50,000 intl 1-11 microgram l units oral 17:51: = 1 cap, Her weinstein capsule 00 PO, qWeek Tylenol 0 Yes 500 mg, Memoria -11 PO, PRN, 0 l 17:51: Refill(s) Adderall 20 0 Yes 20 mg = 1 M emoria mg oral -11 tab, PO, l tablet 17:50: TID, 0 [place] 00 Refill(s) Adderall 20 2022-0 Yes 20 mg = 1 M emoria mg oral -11 tab, PO, l tablet 17:50: TID, 0 [place] 00 Refill(s) Adderall 20 2022-0 Yes 20 mg = 1 M emoria mg oral 1-11 tab, PO, l tablet 17:50: TID, 0 [place] 00 Refill(s) Adderall 20 2022-0 Yes 20 mg = 1 M emoria mg oral -11 tab, PO, l tablet 17:50: TID, 0 [place] 00 Refill(s) dextroamphe Yes Take by Uni vers tamine/amph 1-10 mouth. ity of etamine 09:59: [place] (ADDERALL 24 Medical ORAL) Branch ergocalcife Yes Take by Uni vers rol, 1-10 mouth. ity of vitamin D2, 09:59: [place] (VITAMIN D 24 Medical ORAL) Branch montelukast Yes Take by Uni vers sodium 1-10 mouth. ity of (SINGULAIR 09:59: [place] ORAL) 24 Medical Branch dextroamphe Yes Take by Uni vers tamine/amph 1-10 mouth. ity of etamine 09:59: [place] (ADDERALL 24 Medical ORAL) Branch ergocalcife Yes Take by Uni vers rol, 1-10 mouth. ity of vitamin D2, 09:59: [place] (VITAMIN D 24 Medical ORAL) Branch montelukast Yes Take by Uni vers sodium 1-10 mouth. ity of (SINGULAIR 09:59: [place] ORAL) 24 Medical Branch dextroamphe Yes Take by Uni vers tamine/amph 1-10 mouth. ity of etamine 09:59: [place] (ADDERALL 24 Medical ORAL) Branch ergocalcife Yes Take by Uni vers rol, 1-10 mouth. ity of vitamin D2, 09:59: [place] (VITAMIN D 24 Medical ORAL) Branch montelukast Yes Take by Uni vers sodium 1-10 mouth. ity of (SINGULAIR 09:59: [place] ORAL) 24 Medical Branch dextroamphe Yes Take by Uni vers tamine/amph 1-10 mouth. ity of etamine 09:59: [place] (ADDERALL 24 Medical ORAL) Branch ergocalcife Yes Take by Uni vers rol, 1-10 mouth. ity of vitamin D2, 09:59: [place] (VITAMIN D 24 Medical ORAL) Branch montelukast Yes Take by Uni vers sodium 1-10 mouth. ity of (SINGULAIR 09:59: [place] ORAL) 24 Medical Branch amphetamine 2021-0 Yes [place] -dextroamph 8-09 Health etamine 00:00: (Adderall) 00 30 MG tablet propranolol Yes [place] (Inderal) 7-29 Health 10 MG 00:00: tablet 00 Blood-Gluco 2019-0 Yes [id number] Use as Univers se Meter 8-24 directed ity of (FREESTYLE 00:00: [place] LITE METER) 00 Medical Kit Branch blood sugar 2020-0 Yes [id number] Use as Univers diagnostic 8-24 directed ity o f (FREESTYLE 00:00: [place] LITE 00 Medical STRIPS) Branch strip lancets 17 2019-0 Yes [id number] Use as U nivers gauge Misc 8-24 directed ity o f 00:00: [place] 00 Medical Branch Blood-Gluco 2020-0 Yes [id number] Use as Univers se Meter 8-24 directed ity of (FREESTYLE 00:00: [place] LITE METER) 00 Medical Kit Branch blood sugar 2019-0 Yes [id number] Use as Univers diagnostic 8-24 directed ity o f (FREESTYLE 00:00: [place] LITE 00 Medical STRIPS) Branch strip lancets 17 2019-0 Yes [id number] Use as U nivers gauge Misc 8-24 directed ity o f 00:00: [place] 00 Medical Branch Blood-Gluco 2019-0 Yes [id number] Use as Univers se Meter 8-24 directed ity of (FREESTYLE 00:00: [place] LITE METER) 00 Medical Kit Branch blood sugar 2019-0 Yes [id number] Use as Univers diagnostic 8-24 directed ity o f (FREESTYLE 00:00: [place] LITE 00 Medical STRIPS) Branch strip lancets 17 2019-0 Yes [id number] Use as U nivers gauge Misc 8-24 directed ity o f 00:00: [place] 00 Medical Branch Blood-Gluco 2020-0 Yes [id number] Use as Univers se Meter 8-24 directed ity of (FREESTYLE 00:00: [place] LITE METER) 00 Medical Kit Branch blood sugar 2020-0 Yes [id number] Use as Univers diagnostic 8-24 directed ity o f (FREESTYLE 00:00: [place] LITE 00 Medical STRIPS) Branch strip lancets 17 2020-0 Yes [id number] Use as U nivers gauge Misc 8-24 directed ity o f 00:00: [place] 00 Medical Branch Blood-Gluco 2020-0 Yes [id number] Use as Univers se Meter 8-24 directed ity of (FREESTYLE 00:00: [place] LITE METER) 00 Medical Kit Branch blood sugar 2020-0 Yes [id number] Use as Univers diagnostic 8-24 directed ity o f (FREESTYLE 00:00: [place] LITE 00 Medical STRIPS) Branch strip lancets 17 2020-0 Yes [id number] Use as U nivers gauge Misc 8-24 directed ity o f 00:00: [place] 00 Medical Branch Blood-Gluco 2020-0 Yes [id number] Use as Univers se Meter 8-24 directed ity of (FREESTYLE 00:00: [place] LITE METER) 00 Medical Kit Branch blood sugar 2020-0 Yes [id number] Use as Univers diagnostic 8-24 directed ity o f (FREESTYLE 00:00: [place] LITE 00 Medical STRIPS) Branch strip lancets 17 2020-0 Yes [id number] Use as U nivers gauge Misc 8-24 directed ity o f 00:00: [place] 00 Medical Branch Blood-Gluco 2020-0 Yes [id number] Use as Univers se Meter 8-24 directed ity of (FREESTYLE 00:00: [place] LITE METER) 00 Medical Kit Branch blood sugar 2020-0 Yes [id number] Use as Univers diagnostic 8-24 directed ity o f (FREESTYLE 00:00: [place] LITE 00 Medical STRIPS) Branch strip lancets 17 2020-0 Yes [id number] Use as U nivers gauge Misc 8-24 directed ity o f 00:00: [place] 00 Medical Branch Blood-Gluco 2020-0 Yes [id number] Use as Univers se Meter 8-24 directed ity of (FREESTYLE 00:00: [place] LITE METER) 00 Medical Kit Branch blood sugar 2020-0 Yes [id number] Use as Univers diagnostic 8-24 directed ity o f (FREESTYLE 00:00: [place] LITE 00 Medical STRIPS) Branch strip lancets 17 2020-0 Yes [id number] Use as U nivers gauge Misc 8-24 directed ity o f 00:00: [place] 00 Medical Branch Blood-Gluco 2020-0 Yes [id number] Use as Univers se Meter 8-24 directed ity of (FREESTYLE 00:00: [place] LITE METER) 00 Medical Kit Branch blood sugar 2020-0 Yes [id number] Use as Univers diagnostic 8-24 directed ity o f (FREESTYLE 00:00: [place] LITE 00 Medical STRIPS) Branch strip lancets 17 2020-0 Yes [id number] Use as U nivers gauge Misc 8-24 directed ity o f 00:00: [place] 00 Medical Branch 2020-0 Yes [id number] 1{packe Take 1 Univers vit 4-15 t} Packet by ity of 33-iron-fol 00:00: mouth [place] ic-dha 00 daily. Medical (SELECT-OB Branch + DHA) 29 mg iron-1 mg -250 mg combo pack colistin-ne 2020-0 Yes [id number] 1[drp] Place 1 Univers omycin-hc-t 4-15 Drop in ity o f [place] 00:00: both ears Dave as (CORTISPORI 00 4 (four) Medi michael N-TC) times Branch 3.3-3-10-0. daily. 5 mg/mL otic drops 2019-0 Yes [id number] 1{packe Take 1 Univers vit 4-15 t} Packet by ity of 33-iron-fol 00:00: mouth [place] ic-dha 00 daily. Medical (SELECT-OB Branch + DHA) 29 mg iron-1 mg -250 mg combo pack colistin-ne 2020-0 Yes [id number] 1[drp] Place 1 Univers omycin-hc-t 4-15 Drop in ity o f [place] 00:00: both ears Dave as (CORTISPORI 00 4 (four) Medi michael N-TC) times Branch 3.3-3-10-0. daily. 5 mg/mL otic drops 2020-0 Yes [id number] 1{packe Take 1 Univers vit 4-15 t} Packet by ity of 33-iron-fol 00:00: mouth [place] ic-dha 00 daily. Medical (SELECT-OB Branch + DHA) 29 mg iron-1 mg -250 mg combo pack colistin-ne 2020-0 Yes [id number] 1[drp] Place 1 Univers omycin-hc-t 4-15 Drop in ity o f [place] 00:00: both ears Dave as (CORTISPORI 00 4 (four) Medi michael N-TC) times Branch 3.3-3-10-0. daily. 5 mg/mL otic drops 2020-0 Yes [id number] 1{packe Take 1 Univers vit 4-15 t} Packet by ity of 33-iron-fol 00:00: mouth [place] ic-dha 00 daily. Medical (SELECT-OB Branch + DHA) 29 mg iron-1 mg -250 mg combo pack colistin-ne 2020-0 Yes [id number] 1[drp] Place 1 Univers omycin-hc-t 4-15 Drop in ity o f [place] 00:00: both ears Dave as (CORTISPORI 00 4 (four) Medi michael N-TC) times Branch 3.3-3-10-0. daily. 5 mg/mL otic drops 2020-0 Yes [id number] 1{packe Take 1 Univers vit 4-15 t} Packet by ity of 33-iron-fol 00:00: mouth [place] ic-dha 00 daily. Medical (SELECT-OB Branch + DHA) 29 mg iron-1 mg -250 mg combo pack colistin-ne 2020-0 Yes [id number] 1[drp] Place 1 Univers omycin-hc-t 4-15 Drop in ity o f [place] 00:00: both ears Dave as (CORTISPORI 00 4 (four) Medi michael N-TC) times Branch 3.3-3-10-0. daily. 5 mg/mL otic drops 2020-0 Yes [id number] 1{packe Take 1 Univers vit 4-15 t} Packet by ity of 33-iron-fol 00:00: mouth [place] ic-dha 00 daily. Medical (SELECT-OB Branch + DHA) 29 mg iron-1 mg -250 mg combo pack colistin-ne 2020-0 Yes [id number] 1[drp] Place 1 Univers omycin-hc-t 4-15 Drop in ity o f [place] 00:00: both ears Dave as (CORTISPORI 00 4 (four) Medi michael N-TC) times Branch 3.3-3-10-0. daily. 5 mg/mL otic drops 2020-0 Yes [id number] 1{packe Take 1 Univers vit 4-15 t} Packet by ity of 33-iron-fol 00:00: mouth [place] ic-dha 00 daily. Medical (SELECT-OB Branch + DHA) 29 mg iron-1 mg -250 mg combo pack colistin-ne 2020-0 Yes [id number] 1[drp] Place 1 Univers omycin-hc-t 4-15 Drop in ity o f [place] 00:00: both ears Dave as (CORTISPORI 00 4 (four) Medi michael N-TC) times Branch 3.3-3-10-0. daily. 5 mg/mL otic drops 2020-0 Yes [id number] 1{packe Take 1 Univers vit 4-15 t} Packet by ity of 33-iron-fol 00:00: mouth [place] ic-dha 00 daily. Medical (SELECT-OB Branch + DHA) 29 mg iron-1 mg -250 mg combo pack colistin-ne 2020-0 Yes [id number] 1[drp] Place 1 Univers omycin-hc-t 4-15 Drop in ity o f [place] 00:00: both ears Dave as (CORTISPORI 00 4 (four) Medi michael N-TC) times Branch 3.3-3-10-0. daily. 5 mg/mL otic drops 2020-0 Yes [id number] 1{packe Take 1 Univers vit 4-15 t} Packet by ity of 33-iron-fol 00:00: mouth [place] ic-dha 00 daily. Medical (SELECT-OB Branch + DHA) 29 mg iron-1 mg -250 mg combo pack colistin-ne 2020-0 Yes [id number] 1[drp] Place 1 Univers omycin-hc-t 4-15 Drop in ity o f [place] 00:00: both ears Dave as (CORTISPORI 00 4 (four) Medi michael N-TC) times Branch 3.3-3-10-0. daily. 5 mg/mL otic drops 2020-0 Yes [id number] 1{packe Take 1 Univers vit 4-15 t} Packet by ity of 33-iron-fol 00:00: mouth [place] ic-dha 00 daily. Medical (SELECT-OB Branch + DHA) 29 mg iron-1 mg -250 mg combo pack colistin-ne 2020-0 Yes [id number] 1[drp] Place 1 Univers omycin-hc-t 4-15 Drop in ity o f [place] 00:00: both ears Dave as (CORTISPORI 00 4 (four) Medi michael N-TC) times Branch 3.3-3-10-0. daily. 5 mg/mL otic drops 2020-0 Yes [id number] 1{packe Take 1 Univers vit 4-15 t} Packet by ity of 33-iron-fol 00:00: mouth [place] ic-dha 00 daily. Medical (SELECT-OB Branch + DHA) 29 mg iron-1 mg -250 mg combo pack colistin-ne 2020-0 Yes [id number] 1[drp] Place 1 Univers omycin-hc-t 4-15 Drop in ity o f [place] 00:00: both ears Dave as (CORTISPORI 00 4 (four) Medi michael N-TC) times Branch 3.3-3-10-0. daily. 5 mg/mL otic drops 2020-0 Yes [id number] 1{packe Take 1 Univers vit 4-15 t} Packet by ity of 33-iron-fol 00:00: mouth [place] ic-dha 00 daily. Medical (SELECT-OB Branch + DHA) 29 mg iron-1 mg -250 mg combo pack colistin-ne 2020-0 Yes [id number] 1[drp] Place 1 Univers omycin-hc-t 4-15 Drop in ity o f [place] 00:00: both ears Dave as (CORTISPORI 00 4 (four) Medi michael N-TC) times Branch 3.3-3-10-0. daily. 5 mg/mL otic drops 2020-0 Yes [id number] 1{packe Take 1 Univers vit 4-15 t} Packet by ity of 33-iron-fol 00:00: mouth [place] ic-dha 00 daily. Medical (SELECT-OB Branch + DHA) 29 mg iron-1 mg -250 mg combo pack colistin-ne 2020-0 Yes [id number] 1[drp] Place 1 Univers omycin-hc-t 4-15 Drop in ity o f [place] 00:00: both ears [place] as (CORTISPORI 00 4 (four) Medi michael N-TC) times Branch 3.3-3-10-0. daily. 5 mg/mL otic drops 2020-0 Yes [id number] 1{packe Take 1 Univers vit 4-15 t} Packet by ity of 33-iron-fol 00:00: mouth [place] ic-dha 00 daily. Medical (SELECT-OB Branch + DHA) 29 mg iron-1 mg -250 mg combo pack colistin-ne 2020-0 Yes [id number] 1[drp] Place 1 Univers omycin-hc-t 4-15 Drop in ity o f [place] 00:00: both ears [place] as (CORTISPORI 00 4 (four) Medi michael N-TC) times Branch 3.3-3-10-0. daily. 5 mg/mL otic drops 2020-0 Yes [id number] 1{packe Take 1 Univers vit 4-15 t} Packet by ity of 33-iron-fol 00:00: mouth [place] ic-dha 00 daily. Medical (SELECT-OB Branch + DHA) 29 mg iron-1 mg -250 mg combo pack colistin-ne 2020-0 Yes [id number] 1[drp] Place 1 Univers omycin-hc-t 4-15 Drop in ity o f [place] 00:00: both ears [place] as (CORTISPORI 00 4 (four) Medi michael N-TC) times Branch 3.3-3-10-0. daily. 5 mg/mL otic drops 2020-0 Yes [id number] 1{packe Take 1 Univers vit 4-15 t} Packet by ity of 33-iron-fol 00:00: mouth [place] ic-dha 00 daily. Medical (SELECT-OB Branch + DHA) 29 mg iron-1 mg -250 mg combo pack colistin-ne 2020-0 Yes [id number] 1[drp] Place 1 Univers omycin-hc-t 4-15 Drop in ity o f [place] 00:00: both ears [place] as (CORTISPORI 00 4 (four) Medi michael N-TC) times Branch 3.3-3-10-0. daily. 5 mg/mL otic drops 2020-0 Yes [id number] 1{packe Take 1 Univers vit 4-15 t} Packet by ity of 33-iron-fol 00:00: mouth [place] ic-dha 00 daily. Medical (SELECT-OB Branch + DHA) 29 mg iron-1 mg -250 mg combo pack colistin-ne 2020-0 Yes [id number] 1[drp] Place 1 Univers omycin-hc-t 4-15 Drop in ity o f [place] 00:00: both ears [place] as (CORTISPORI 00 4 (four) Medi michael N-TC) times Branch 3.3-3-10-0. daily. 5 mg/mL otic drops 2020-0 Yes [id number] 1{packe Take 1 Univers vit 4-15 t} Packet by ity of 33-iron-fol 00:00: mouth [place] ic-dha 00 daily. Medical (SELECT-OB Branch + DHA) 29 mg iron-1 mg -250 mg combo pack colistin-ne 2020-0 Yes [id number] 1[drp] Place 1 Univers omycin-hc-t 4-15 Drop in ity o f [place] 00:00: both ears [place] as (CORTISPORI 00 4 (four) Medi michael N-TC) times Branch 3.3-3-10-0. daily. 5 mg/mL otic drops 2020-0 Yes [id number] 1{packe Take 1 Univers vit 4-15 t} Packet by ity of 33-iron-fol 00:00: mouth [place] ic-dha 00 daily. Medical (SELECT-OB Branch + DHA) 29 mg iron-1 mg -250 mg combo pack colistin-ne 2020-0 Yes [id number] 1[drp] Place 1 Univers omycin-hc-t 4-15 Drop in ity o f [place] 00:00: both ears [place] as (CORTISPORI 00 4 (four) Medi michael N-TC) times Branch 3.3-3-10-0. daily. 5 mg/mL otic drops 2020-0 Yes [id number] 1{packe Take 1 Univers vit 4-15 t} Packet by ity of 33-iron-fol 00:00: mouth [place] ic-dha 00 daily. Medical (SELECT-OB Branch + DHA) 29 mg iron-1 mg -250 mg combo pack colistin-ne 2020-0 Yes [id number] 1[drp] Place 1 Univers omycin-hc-t 4-15 Drop in ity o f honzonium 00:00: both ears Dave as (CORTISPORI 00 4 (four) Medi michael N-TC) times Branch 3.3-3-10-0. daily. 5 mg/mL otic drops 2020-0 Yes [id number] 1{packe Take 1 Univers vit 4-15 t} Packet by ity of 33-iron-fol 00:00: mouth [place] ic-dha 00 daily. Medical (SELECT-OB Branch + DHA) 29 mg iron-1 mg -250 mg combo pack colistin-ne 2020-0 Yes [id number] 1[drp] Place 1 Univers omycin-hc-t 4-15 Drop in ity o f [place] 00:00: both ears Dave as (CORTISPORI 00 4 (four) Medi michael N-TC) times Branch 3.3-3-10-0. daily. 5 mg/mL otic drops 2020-0 Yes [id number] 1{packe Take 1 Univers vit 4-15 t} Packet by ity of 33-iron-fol 00:00: mouth [place] ic-dha 00 daily. Medical (SELECT-OB Branch + DHA) 29 mg iron-1 mg -250 mg combo pack colistin-ne 2020-0 Yes [id number] 1[drp] Place 1 Univers omycin-hc-t 4-15 Drop in ity o f [place] 00:00: both ears Dave as (CORTISPORI 00 4 (four) Medi michael N-TC) times Branch 3.3-3-10-0. daily. 5 mg/mL otic drops 2020-0 Yes [id number] 1{packe Take 1 Univers vit 4-15 t} Packet by ity of 33-iron-fol 00:00: mouth [place] ic-dha 00 daily. Medical (SELECT-OB Branch + DHA) 29 mg iron-1 mg -250 mg combo pack colistin-ne 2020-0 Yes [id number] 1[drp] Place 1 Univers omycin-hc-t 4-15 Drop in ity o f [place] 00:00: both ears Dave as (CORTISPORI 00 4 (four) Medi michael N-TC) times Branch 3.3-3-10-0. daily. 5 mg/mL otic drops 2020-0 Yes [id number] 1{packe Take 1 Univers vit 4-15 t} Packet by ity of 33-iron-fol 00:00: mouth [place] ic-dha 00 daily. Medical (SELECT-OB Branch + DHA) 29 mg iron-1 mg -250 mg combo pack colistin-ne 2020-0 Yes [id number] 1[drp] Place 1 Univers omycin-hc-t 4-15 Drop in ity o f [place] 00:00: both ears Dave as (CORTISPORI 00 4 (four) Medi michael N-TC) times Branch 3.3-3-10-0. daily. 5 mg/mL otic drops 2020-0 Yes [id number] 1{packe Take 1 Univers vit 4-15 t} Packet by ity of 33-iron-fol 00:00: mouth [place] ic-dha 00 daily. Medical (SELECT-OB Branch + DHA) 29 mg iron-1 mg -250 mg combo pack colistin-ne 2020-0 Yes [id number] 1[drp] Place 1 Univers omycin-hc-t 4-15 Drop in ity o f [place] 00:00: both ears Dave as (CORTISPORI 00 4 (four) Medi michael N-TC) times Branch 3.3-3-10-0. daily. 5 mg/mL otic drops 2020-0 Yes [id number] 1{packe Take 1 Univers vit 4-15 t} Packet by ity of 33-iron-fol 00:00: mouth [place] ic-dha 00 daily. Medical (SELECT-OB Branch + DHA) 29 mg iron-1 mg -250 mg combo pack colistin-ne 2020-0 Yes [id number] 1[drp] Place 1 Univers omycin-hc-t 4-15 Drop in ity o f [place] 00:00: both ears Dave as (CORTISPORI 00 4 (four) Medi michael N-TC) times Branch 3.3-3-10-0. daily. 5 mg/mL otic drops 2020-0 Yes [id number] 1{packe Take 1 Univers vit 4-15 t} Packet by ity of 33-iron-fol 00:00: mouth [place] ic-dha 00 daily. Medical (SELECT-OB Branch + DHA) 29 mg iron-1 mg -250 mg combo pack colistin-ne 2020-0 Yes [id number] 1[drp] Place 1 Univers omycin-hc-t 4-15 Drop in ity o f [place] 00:00: both ears Dave as (CORTISPORI 00 4 (four) Medi michael N-TC) times Branch 3.3-3-10-0. daily. 5 mg/mL otic drops 2020-0 Yes [id number] 1{packe Take 1 Univers vit 4-15 t} Packet by ity of 33-iron-fol 00:00: mouth [place] ic-dha 00 daily. Medical (SELECT-OB Branch + DHA) 29 mg iron-1 mg -250 mg combo pack colistin-ne 2020-0 Yes [id number] 1[drp] Place 1 Univers omycin-hc-t 4-15 Drop in ity o f [place] 00:00: both ears Dave as (CORTISPORI 00 4 (four) Medi michael N-TC) times Branch 3.3-3-10-0. daily. 5 mg/mL otic drops 0 Yes [id number] 1{packe Take 1 Univers vit 4-15 t} Packet by ity of 33-iron-fol 00:00: mouth [place] ic-dha 00 daily. Medical (SELECT-OB Branch + DHA) 29 mg iron-1 mg -250 mg combo pack colistin-ne 0 Yes [id number] 1[drp] Place 1 Univers omycin-hc-t 4-15 Drop in ity o f [place] 00:00: both ears Dave as (CORTISPORI 00 4 (four) Medi michael N-TC) times Branch 3.3-3-10-0. daily. 5 mg/mL otic drops Vital Signs Vital Name Observation Time Observation Value Comments Source Systolic blood 2022-11-09 15:57:00 111 mm[Hg] [facility] Diastolic blood 2022-11-09 15:57:00 77 mm[Hg] [facility] [place] Heart rate 2022-11-09 15:57:00 111 /min [facility] Body temperature 2022-11-09 15:57:00 37.11 Rosario [facility] Body height 2022-11-09 15:57:00 170.2 cm [facility] Body weight 2022-11-09 15:57:00 115.758 kg [facility] BMI 2022-11-09 15:57:00 39.97 kg/m2 [facility] Systolic blood 2022-06-29 15:05:00 121 mm[facility]Hg[facility] Diastolic blood 2022-06-29 15:05:00 83 mm[facility]Hg[facility] Heart rate 2022-06-29 15:05:00 90 [facility] 2022-06-29 15:05:00 [facility] weight 2022-06-29 15:05:00 [facility] 2022-06-29 15:05:00 34.46 [facility] 2020-06-30 13:16:00 113 mm[Hg] Univer sity of pressure [facility] Diastolic blood 2020-06-30 13:16:00 70 mm[Hg] Unive rsity of pressure [facility] Heart rate 2020-06-30 13:16:00 110 /min [facility] [place] [facility] Body temperature 2020-06-30 13:16:00 36.61 Rosario Univ ersity of [facility] Respiratory rate 2020-06-30 13:16:00 16 /min Univ [facility] Body height 2020-06-30 13:16:00 170.2 cm [facility] [place] [facility] Body weight 2020-06-30 13:16:00 102.513 kg [facility] [place] [facility] BMI 2020-06-30 13:16:00 35.40 kg/m2 [facility] [place] [facility] Systolic blood 2020-06-30 13:16:00 113 mm[Hg] Univer sity of [facility] Diastolic blood 2020-06-30 13:16:00 70 mm[Hg] Unive rsity of pressure [facility] Heart rate 2020-06-30 13:16:00 110 /min [facility] [place] [facility] Body temperature 2020-06-30 13:16:00 36.61 Rosario [facility] [place] [facility] Respiratory rate 2020-06-30 13:16:00 16 /min Univ [facility] Body height 2020-06-30 13:16:00 170.2 cm [facility] Body weight 2020-06-30 13:16:00 102.513 kg [facility] [place] [facility] BMI 2020-06-30 13:16:00 35.40 kg/m2 [facility] [place] [facility] Systolic blood 2020-06-17 15:43:00 118 mm[Hg] Univer sity of [facility] Diastolic blood 2020-06-17 15:43:00 76 mm[Hg] Unive rsity of [facility] Heart rate 2020-06-17 15:43:00 96 /min [facility] Body temperature 2020-06-17 15:43:00 36.28 Rosario [facility] Respiratory rate 2020-06-17 15:43:00 16 /min Univ [facility] Body height 2020-06-17 15:43:00 170.2 cm [facility] [place] [facility] Body weight 2020-06-17 15:43:00 102.74 kg [facility] [place] [facility] BMI 2020-06-17 15:43:00 35.47 kg/m2 [facility] [place] [facility] Systolic blood 2020-05-13 18:05:00 126 mm[Hg] Univer sity of [facility] Diastolic blood 2020-05-13 18:05:00 71 mm[Hg] Unive rsity of [facility] Heart rate 2020-05-13 18:05:00 87 /min [facility] [place] [facility] Body temperature 2020-05-13 18:05:00 36.56 Rosario [facility] Respiratory rate 2020-05-13 18:05:00 16 /min Univ [facility] Body height 2020-05-13 18:05:00 170.2 cm [facility] Body weight 2020-05-13 18:05:00 102.649 kg [facility] [place] [facility] BMI 2020-05-13 18:05:00 35.44 kg/m2 [facility] [place] [facility] Systolic blood 2020-04-14 21:00:00 129 mm[Hg] Univer sity of [facility] Diastolic blood 2020-04-14 21:00:00 87 mm[Hg] Unive rsity of [facility] Heart rate 2020-04-14 21:00:00 86 /min [facility] Body temperature 2020-04-14 21:00:00 36.67 Rosario [facility] [place] [facility] Respiratory rate 2020-04-14 21:00:00 16 /min Univ [facility] [place] [facility] Body height 2020-04-14 21:00:00 170.2 cm Universi ty [facility] Body weight 2020-04-14 21:00:00 103.137 kg Universi ty [facility] BMI 2020-04-14 21:00:00 35.61 kg/m2 Universi ty [facility] Systolic blood 2020-02-13 15:32:00 118 mm[Hg] Univer sity of pressure [facility] Diastolic blood 2020-02-13 15:32:00 67 mm[Hg] Unive rsity of [facility] Heart rate 2020-02-13 15:32:00 92 /min Universi ty [facility] Body temperature 2020-02-13 15:32:00 36.89 [facility] [place] [facility] rate 2020-02-13 15:32:00 16 /min [facility] [place] Body height 2020-02-13 15:32:00 170.2 cm Universi ty [facility] Body weight 2020-02-13 15:32:00 104.441 kg Universi ty [facility] BMI 2020-02-13 15:32:00 36.06 kg/m2 Universi ty [facility] Heart Rate 2023-02-17 13:08:45 [facility] Temperature Oral (F) 2023-02-17 13:08:00 98.7 F [facility] [place] Systolic (mm Hg) 2023-02-17 13:06:53 Sandoval rial [place] Diastolic (mm Hg) 2023-02-17 13:06:53 Mem orial [place] Weight 2023-02-16 12:56:00 [facility] BMI Calculated 2023-02-16 12:56:00 Memori al [place] Height 2023-02-09 14:39:00 5 [ft_i] [facility] Weight 2023-02-09 14:39:00 [facility] [place] BMI Calculated 2023-02-09 14:39:00 Memori al [place] Systolic (mm Hg) 2022-11-17 14:22:00 Sandoval rial [facility] Diastolic (mm Hg) 2022-11-17 14:22:00 Mem orial [facility] Height 2022-11-16 20:56:00 5 [ft_i] [facility] Weight 2022-11-16 20:56:00 [facility] [place] BMI Calculated 2022-11-16 20:56:00 Priscilla Torres Procedures Procedure Date / Time Performing Source Performed Clinician ASSIGNMENT OF BENEFITS 2022-11-09 Doctor Unassigned, Univer sity of 15:43:20 [place] [facility] [id number] 2020-09-23 [facility] 00:[facility]:00 [facility] POCT URINALYSIS 2020-06-17 Annie [place] [facility] 15:51:00 [facility] POCT URINALYSIS 2020-06-17 Annie [place] [facility] 15:50:00 [facility] POCT URINALYSIS 2020-05-13 Annie [place] [facility] 00:00:00 [facility] POCT URINALYSIS 2020-04-14 Annie [place] [facility] 21:13:00 [facility] GLUCOSE 1 HOUR POST PRANDIAL 2020-02-13 Annie [place] [facility] 16:53:00 [facility] CBC WITH DIFFERENTIAL 2020-02-13 Annie [place] Univers ity of 16:53:00 [facility] HEPATITIS B SURFACE ANTIGEN 2020-02-13 Annie [place] U niversity of 16:53:00 [facility] HIV 1/2 AG-AB WITH REFLEX 2020-02-13 Annie [place] Uni versity of 16:53:00 [facility] HB ABO GROUPING 2020-02-13 Annie [place] of 16:45:00 [facility] PAP SMEAR-LIQUID BASED-CP 2020-02-13 Anine [place] Uni versity of 16:27:00 [facility] POCT TEST 2020-02-13 Annie [place] Universit y of 15:34:00 [facility] POCT URINALYSIS 2020-02-13 Annie [place] of 15:33:00 [facility] ASSIGNMENT OF BENEFITS 2020-02-13 Doctor Unassigned, Univer sity of 15:13:36 [place] [facility] section Joseph anderson EGD - Esophagogastroduodenoscopy [facility] Encounters Start End Encounter Admission Attending Care Care Encounter Source Date/Time Date/Time Type Type Clinicians Facility Department ID 2023-04-21 Outpatient [facility] [id number] [place] 16:27:11 [id number] [facility] 2022-09-03 Outpatient [id number] Memoria 20:12:22 [id number] [place] [id number] 2022-06-29 Outpatient [facility] [id number] NE 09:59:21 [id number] [facility] 2022-06-03 Outpatient [facility] [id number] NE 14:35:51 [id number] [facility] 2022-02-05 Outpatient MYLENE [facility] [id number] [place] 09:43:36 SAYJOLANTA [id number] [facility] 2020-09-29 Inpatient [facility] [id number] [facility] 08:28:00 79 [facility] 2020-09-23 Inpatient [facility] [id number] [facility] 10:00:00 Jeremiah 88 [facility] 2023-06-03 2023-06-03 Outpatient MYLENE [facility] [id number] [place] 13:00:00 13:00:00 [facility] 2023-02-21 2023-02-21 Outpatient Gidvani_B VFP VFP [id number] [facility] 00:00:00 00:00:00 [id number] Family Practic e 2023-02-16 2023-02-[address] [facility] [id number] Memoria 12:28:00 16:50:[address] 2023-02-16 2023-02-[address] [facility] [id number] Memoria 12:28:00 16:50:[address] 2023-02-16 2023-02-17 Outpatient Ekhaese, MHSE MHSE [id number] 07:28:00 11:50:00 Obonoruma 01 Imariabe 2023-02-16 2023-02-17 Inpatient EKHAESE, MHSE SHYANN [id number] MH 07:28:00 11:50:00 OBONORUMA [facility] 2023-02-16 2023-02-16 Outpatient Ekhaese, MHSE MHSE [id number] 09:30:00 09:30:00 Obonoruma 01 Imariabe 2023-02-03 2023-02-03 Outpatient Gidvani_B VFP VFP [id number] 00:00:00 00:00:00 [id number] Family Practic e 2022-12-29 2022-12-29 Outpatient Gidvani_B VFP VFP [id number] [facility] 00:00:00 00:00:00 [id number] Family Practic e 2022-12-01 2022-12-01 [facility] [id number] Univers 15:00:00 15:00:[address] [facility] 2022-11-30 2022-11-30 [facility] [id number] Univers 00:00:00 00:00:[address] [facility] 2022-11-19 2022-11-19 [facility] [id number] [id number] Univers 00:00:00 00:00:00 Dileep CHIN [id number] i martha [facility] 4.2.7.2.686 Behzad SILVERIO [id number] [address] 2022-11-17 2022-11-[address] [facility] [id number] Memoria 12:10:00 14:43:00 Outpatient Haroldo 00 [facility] 2022-11-17 2022-11-[address] [facility] [id number] Memoria 12:10:00 14:43:00 Outpatient Haroldo 00 [facility] 2022-11-17 2022-11-17 Outpatient Ekhaese, MHPL MHPL [id number] 06:10:00 08:43:00 Obonoruma 00 Imariabe 2022-11-17 2022-11-17 Outpatient EKHAESE, MHBL SHYANN [id number] MHBL 06:10:00 08:43:00 OBONORUMA 2022-11-12 2022-11-12 Outpatient R CHIP [facility] [id number] Univers 00:00:00 00:00:00 DILEEP knapp [facility] 2022-11-09 2022-11-09 Bpo Specialist 2, Adc Lab [facility] 1.2.840.114 [id number] Univers 11:15:00 11:30:00 Visit Dileep Saunders 350.1.13.10 ity [facility] 4.2.7.2.[place] PROF[place] [id number] Me dical NAL 353 [facility] 2022-11-09 2022-11-09 Outpatient R CHIP [facility] [id number] Univers 10:00:00 10:48:57 DILEEP knapp [facility] 2022-11-09 2022-11-09 [facility] [id number] Univers 10:00:00 10:48:57 Visit Dileep FRIENDJOSEPHINE 350.1.13.10 i ty [facility] 4.2.7.2.686 [place] [id number] Ca dical NAL 134 [facility] 2022-11-09 2022-11-09 Orders Doctor TASHA 1.2.840.114 [id number] Univers 00:00:00 00:00:00 Only Unassigned, ARUN 350.1.13.10 ity of [place] [facility] 4.2.7.2.686 Dave as [id number] [address] 2022-10-12 2022-10-12 [facility] [id number] Univers 13:30:00 13:30:00 [facility] 2022-09-[address] [facility] [id number] Memoria 14:00:00 05:59:00 Haroldo 00 [facility] 2022-08-30 2022-09-[address] [facility] [id number] Memoria 14:00:00 05:59:00 Haroldo 00 [facility] 2022-08-30 2022-09-28 Outpatient ROSAURA Hanson [facility] [id number] 09:00:00 23:59:00 Obonoruma 00 Imariabe 2022-08-30 2022-09-28 Outpatient MARGIE MHSE SHYANN [id number] MH 09:00:00 23:59:[address] [facility] [facility] 2022-09-13 2022-09-13 Outpatient Oskar SAUNDERS [facility] [id number] Univers 13:00:00 13:00:[address] [facility] 2022-08-04 2022-08-04 [facility] [id number] Univers 09:00:00 09:00:[address] [facility] 2022-07-29 2022-07-29 Outpatient [facility] [id number] Univers 13:00:00 13:00:[address] [facility] 2022-07-13 2022-07-13 Outpatient [facility] [id number] Univers 10:00:00 10:00:[address] [facility] 2022-06-29 2022-06-29 Office Mylene, CECE LISETTE [id number] [place] 10:00:00 12:35:01 Visit Loy JONES 350.1.13.58 [facility] 9.2.7.2.686 SPECIALTY [id number] CLINIC 9 2022-01-15 2022-01-15 Emergency EM Martha Leon, [facility] [id number] [facility] 17:24:00 18:34:00 Ebony 75 [facility] 2021-09-30 2021-09-30 Outpatient Oskar WATT [facility] [id number] Univers 10:00:00 10:00:00 JOSE victor [facility] 2020-09-19 2020-09-[address] [facility] [id number] [facility] 10:00:00 10:00:00 Jeremiah 76 [facility] 2020-07-14 2020-07-14 [facility] [id number] Univers 12:45:00 12:45:00 ANNIE victor [facility] 2020-07-14 2020-07-14 Outpatient R EARL [facility] [id number] Univers 12:45:00 12:45:00 ANNIE ity o kayleigh [facility] 2020-06-30 2020-06-30 Outpatient R [facility] [id number] Univers 08:30:00 08:30:00 ity of [facility] 2020-06-30 2020-06-30 Nurse Visit, [facility] Nurse [facility] 1.2 .840.114 [id number] [facility] 08:04:52 08:19:52 Visit Elsie [place] R NUCLEAR MEDICINE TECHNICIAN [id number] ity of REGIONAL [id number] Dave as MATERNAL [id number] Med ical & CHILD [address] [place] [address] 2020-06-30 2020-06-30 Nurse Visit, [facility] 1.2.840.114 [id number] 08:04:52 08:19:52 [facility]CHNIC[facility] 350.1.13.10 Nurse REGIONAL 4.2.7.2.686 MATERNAL [id number] & CHILD [address] [place] [address] 2020-06-23 2020-06-23 [facility]phone [facility] [id number] Univers 00:00:00 00:00:00 Rosmariposanda R NUCLEAR MEDICINE TECHNICIAN 350.1.13.10 ity of REGIONAL [id number] Dave as MATERNAL [id number] Med ical & CHILD [address] [place] [address] 2020-06-23 2020-06-23 [facility] [id number] Univers 00:00:00 00:00:00 Rosmariposanda R NUCLEAR MEDICINE TECHNICIAN 350.1.13.10 ity of REGIONAL 4.2.7.2.686 Dave as MATERNAL [id number] [facility] ical & CHILD [address] [place] [address] 2020-06-23 2020-06-23 [facility] [id number] 00:00:00 00:00:00 Roshunda R NUCLEAR MEDICINE TECHNICIAN 350.1.13.10 REGIONAL 4.2.7.2.686 MATERNAL [id number] & CHILD [address] [place] [address] 2020-06-23 2020-06-23 [facility]phone [facility] [id number] 00:00:00 00:00:00 Roshunda R NUCLEAR MEDICINE TECHNICIAN 350.1.13.10 REGIONAL 4.2.7.2.686 MATERNAL [id number] & CHILD [address] [place] [address] 2020-06-20 2020-06-20 Bpo Specialist Lab, [facility] 1.2.840. 114 [id number] Univers 07:58:46 08:45:00 Visit Annie [place] R NUCLEAR MEDICINE TECHNICIAN 350.1.13.10 ity of REGIONAL [id number] Dave as MATERNAL [id number] [facility] & CHILD [address] [place] [address] 2020-06-20 2020-06-20 Outpatient Oskar ELLIOTT [facility] [id number] Univers 08:15:00 08:15:00 MARCELLANDA itkaro o [facility] 2020-06-18 2020-06-18 [facility] [id number] Univers 00:00:00 00:00:00 Marcellanda R NUCLEAR MEDICINE TECHNICIAN 350.1.13.10 ity of REGIONAL 4.2.7.2.686 Dave as MATERNAL [id number] [address] 2020-06-17 2020-06-17 Rout[facility] 1.2.840.114 [id number] Univers 10:25:25 11:09:57 Roshunda R NUCLEAR MEDICINE TECHNICIAN 350.1.13.10 ity of Visit REGIONAL [id number] Dave as MATERNAL [id number] [facility] & CHILD [address] [place] [address] 2020-06-17 2020-06-17 Outpatient Oskar ELLIOTT [facility] [id number] Univers 10:45:00 10:45:00 MARCELLANDA itkaro o f [facility] 2020-06-13 2020-06-13 Outpatient Oskar ELLIOTT [facility] [id number] Univers 08:45:00 08:45:00 MARCELLANDA itkaro o f [facility] 2020-06-09 2020-06-09 Outpatient R EARL [facility] [id number] Univers 12:45:00 12:45:00 ROSMARIPOSANDA aria o f [facility] 2020-06-09 2020-06-09 Outpatient R EARL [facility] [id number] Univers 12:45:00 12:45:00 MARCELLANDA ity o f [facility] 2020-05-13 2020-05-13 Routine Earl [facility] 1.2.840.114 [id number] Univers 12:54:09 13:09:09 Anaa R NUCLEAR MEDICINE TECHNICIAN 350.1.13.10 ity of Visit REGIONAL [id number] Dave as MATERNAL [id number] Med ical & CHILD [address] [place] [address] 2020-05-13 2020-05-13 Bpo Specialist Ultrasound, Stephen-tank [facility] 1.2 .840.114 [id number] Univers 11:01:46 12:28:32 Visit Kraig Kan NUCLEAR MEDICINE TECHNICIAN [id number] ity of REGIONAL [id number] Dave as MATERNAL [id number] Med ical & CHILD [address] [place] [address] 2020-05-13 2020-05-13 Outpatient R [facility] [id number] Univers 10:45:00 10:45:00 ity of [facility] 2020-05-13 2020-05-13 Abstract Earl [facility] 1.2.840.114 [id number] Univers 00:00:00 00:00:00 Rosmariposanda R NUCLEAR MEDICINE TECHNICIAN 350.1.13.10 ity of REGIONAL [id number] Dave as MATERNAL [id number] Med ical & CHILD [address] [place] [address] 2020-04-16 2020-04-16 Patient Doctor [facility] 1.2.840.114 [id number] Univers 00:00:00 00:00:00 Secure Msg Unassigned, NUCLEAR MEDICINE TECHNICIAN [id number] ity of [place] REGIONAL 4.2.7.2.686 Dave as MATERNAL [phone] Med ical & CHILD [address] [place] [address] 2020-04-14 2020-04-14 [facility] 1.2.840.114 [id number] Univers 15:52:32 16:24:52 Roshunda R NUCLEAR MEDICINE TECHNICIAN [id number] ity of Visit REGIONAL [id number] Dave as MATERNAL [phone] [facility] & CHILD [address] [place] [address] 2020-04-14 2020-04-14 [facility] [id number] Univers 15:45:00 15:45:00 ROSMARIPOSANDA ity o [facility] 2020-04-07 2020-04-07 [facility] [id number] Univers 10:30:00 10:30:00 ROSMARIPOSANDA elmoy o [facility] 2020-04-04 2020-04-04 [facility] [id number] Univers 00:00:00 00:00:00 Rosmariposanda R NUCLEAR MEDICINE TECHNICIAN [id number] ity of REGIONAL [id number] Dave as MATERNAL [phone] [facility] & CHILD [address] [place] [address] 2020-03-27 2020-03-27 [facility] [id number] Univers 10:30:00 10:30:00 FELICITAS knapp [facility] 2020-03-27 2020-03-27 Telemedici Stephen CristinaIng-Fmwdx-Yt/High [facility] [id number] Univers 08:51:09 09:06:09 ne Visit Felicitas Vuong NUCLEAR MEDICINE TECHNICIAN [id number] ity of [facility] [id number] Dave as MATERNAL [phone] [facility] & CHILD [address] [place] [address] 2020-03-11 2020-03-11 [facility] [id number] Univers 13:30:00 13:30:00 ROSMARIPOSANDA ity o [facility] 2020-03-11 2020-03-11 [facility]ici [facility] [id number] Univers 07:43:23 07:58:23 ne Visit Marcellanda R NUCLEAR MEDICINE TECHNICIAN [id number] ity of REGIONAL [id number] Dave as MATERNAL [phone] Med ical & CHILD 107 [facility] 2020-03-05 2020-03-05 Patient Doctor [facility] [id number] Univers 00:00:00 00:00:00 Secure Msg Unassigned, NUCLEAR MEDICINE TECHNICIAN [id number] ity of [place] REGIONAL [id number] Dave as MATERNAL [phone] Med ical & CHILD [address] [place] [address] 2020-03-03 2020-03-03 Patient Doctor [facility] [id number] Univers 00:00:00 00:00:00 Secure Msg Unassigned, NUCLEAR MEDICINE TECHNICIAN [id number] ity of [place] REGIONAL [id number] Dave as MATERNAL [phone] Med ical & CHILD [address] [place] [address] 2020-02-20 2020-02-20 [facility]patient [facility] [id number] Univers 13:15:00 13:15:00 ANNIE victor [facility] 2020-02-15 2020-02-15 Patient Doctor [facility] [id number] Univers 00:00:00 00:00:00 Secure Msg Unassigned, NUCLEAR MEDICINE TECHNICIAN [id number] ity of [place] REGIONAL [id number] Dave as MATERNAL [phone] Med ical & CHILD [address] [place] [address] 2020-02-13 2020-02-13 [facility] [id number] Univers 10:21:32 11:23:31 Roshunda R NUCLEAR MEDICINE TECHNICIAN [id number] ity of Visit REGIONAL [id number] Dave as MATERNAL [phone] Med ical & CHILD [address] [place] [address] 2020-02-13 2020-02-13 [facility]patient [facility] [id number] Univers 09:45:00 09:45:00 ANNIE victor [facility] 2020-02-13 2020-02-13 Orders Doctor TASHA [id number] Univers 00:00:00 00:00:00 Only Unassigned, ARUN [id number] ity of [place] [facility] [id number] Dave as [phone] [facility] [address] Results Test Description Test Time Test Comments Results Result Comments Source CHEMISTRY 2023-02-17 10:39:00 Test Item Value Reference Range Interpretation Comme nts Glucose Lvl (test code = Glucose Lvl) 111 70-99 [facility]XqfrcdcPMWRHEREG8709-96-30 10:39:00 Test Item Value Reference Range Interpretation Comments BUN (test code = BUN) 7 7-22 [facility]WsblslbXIWMPJFUH9870-98-60 10:39:00 Test Item Value Reference Range Interpretation Comments Creatinine Lvl (test code = Creatinine 0.51 0.50-1.40 Lvl) [facility] CenterFubsbguZGZOYXRKS4102-43-52 10:39:00 Test Item Value Reference Range Interpretation Comments Sodium Lvl (test code = Sodium Lvl) 141 135-145 [facility] CenterUcxljbtBESORCMTU5659-93-56 10:39:00 Test Item Value Reference Range Interpretation Comments Potassium Lvl (test code = Potassium 3.3 3.5-5.1 Lvl) [facility] CenterAbkucygGIYHRBDIR7913-40-68 10:39:00 Test Item Value Reference Range Interpretation Comments Chloride Lvl (test code = Chloride Lvl) 111 95-109 [facility] CenterRlcxskpZZMOVGSGB6704-40-23 10:39:00 Test Item Value Reference Range Interpretation Comments CO2 (test code = CO2) 24 24-32 [facility] CenterPhbthqyUXHXGKPAO5141-92-97 10:39:00 Test Item Value Reference Range Interpretation Comments Calcium Lvl (test code = Calcium Lvl) 9.1 8.5-10.5 [facility] CenterTudgwclYNRDIXAYT1266-51-31 10:39:00 Test Item Value Reference Range Interpretation Comments Total Protein (test code = Total 7.1 6.4-8.4 Protein) [facility] CenterHidozbhNTGBWGPVP1164-45-65 10:39:00 Test Item Value Reference Range Interpretation Comments Albumin Lvl (test code = Albumin Lvl) 3.5 3.5-5.0 [facility] CenterBqcifwnITXNJENSA2121-63-79 10:39:00 Test Item Value Reference Range Interpretation Comments ALT (test code = ALT) 58 See_Comment [Auto mated message] The system which ge nerated this result transmit jessie reference range : <=65. The reference range was not used to interpr et this result as mary l/abnormal. [facility] DevicesYgfncrgSRFRWUBEE3610-07-58 10:39:00 Test Item Value Reference Range Interpretation Comments AST (test code = AST) 30 See_Comment [Auto mated message] The system which ge nerated this result transmit jessie reference range : <=37. The reference range was not used to interpr et this result as mary l/abnormal. [facility] DevicesXfpvburHACCQWZTV9856-35-20 10:39:00 Test Item Value Reference Range Interpretation Comments Alk Phos (test code = Alk Phos) 81 39-136 [facility] UtvzcbnQCKARIROR4474-82-60 10:39:00 Test Item Value Reference Range Interpretation Comments Bili Total (test code = Bili Total) 0.5 0.2-1.3 [facility] JhxxpmaVPDPZEWLB7319-64-82 10:39:00 Test Item Value Reference Range Interpretation Comments AGAP (test code = AGAP) 9.3 10.0-20.0 [facility] EyvjbtdFMVFQISIF4478-79-02 10:39:00 Test Item Value Reference Range Interpretation Comments B/C Ratio (test code = B/C Ratio) 14 1 6-25 [facility] FhcbimxYOGFMGTIF8476-36-67 10:39:00 Test Item Value Reference Range Interpretation Comments Globulin (test code = Globulin) 3.6 2.7-4.2 [facility] JscujauPLVQIUJCT0119-10-38 10:39:00 Test Item Value Reference Range Interpretation Comments A/G Ratio (test code = A/G Ratio) 1.0 1 0.7-1.6 [facility] EbjislfFAYCYBSQM8115-56-42 10:39:00 Test Item Value Reference Range Interpretation Comments eGFR (test code = eGFR) 129 [facility] KjfrzovHYDBYKBWFH7613-16-54 10:39:00 Test Item Value Reference Range Interpretation Comments Segs (test code = Segs) 68.1 45.0-75.0 [facility] OnjfozkSMHORHCBPV2181-94-20 10:39:00 Test Item Value Reference Range Interpretation Comments Lymphocytes (test code = Lymphocytes) 23.0 20.0-40.0 [facility] DbhjnqpYMEMXVUJZJ7020-27-52 10:39:00 Test Item Value Reference Range Interpretation Comments Monocytes (test code = Monocytes) 8.1 2.0-12.0 [facility] RegionalEgnxochYSAAIPWUHF6245-49-58 10:39:00 Test Item Value Reference Range Interpretation Comments Eosinophils (test code = 0.2 See_Comment [A utomated message] The Eosinophils) system which ge nerated this result tra nsmitted reference range : <=4.0. The reference r marleen was not used to int erpret this result as normal/abnormal . [facility] RegionalHhosqomTGCAPVOCAI8543-32-59 10:39:00 Test Item Value Reference Range Interpretation Comments Basophils (test code = 0.6 See_Comment [Aut omated message] The Basophils) system which ge nerated this result tra nsmitted reference range : <=1.0. The reference r marleen was not used to int erpret this result as normal/abnormal . [facility] RegionalJwyjeiqWXZTQUOOFJ7126-78-11 10:39:00 Test Item Value Reference Range Interpretation Comments Neutrophils # (test code = Neutrophils 5.1 1.5-8.1 #) [facility] RegionalHiwpadbVRPGNQFRTP4869-91-20 10:39:00 Test Item Value Reference Range Interpretation Comments Lymphocytes # (test code = Lymphocytes 1.7 1.0-5.5 #) [facility] RegionalYfmbrzaBHDLWHJFRD5054-12-91 10:39:00 Test Item Value Reference Range Interpretation Comments Monocytes # (test code 0.6 See_Comment [Aut omated message] The = Monocytes #) system which generated this result tra nsmitted reference range : <=0.8. The reference r marleen was not used to int erpret this result as normal/abnormal . [facility] RegionalVknvprzBUNRFZCDEO2055-32-97 10:39:00 Test Item Value Reference Range Interpretation Comments WBC (test code = WBC) 7.5 3.7-10.4 [place] 907513-04-20 10:39:00 Test Item Value Reference Range Interpretation Comments RBC (test code = RBC) 3.95 4.20-5.40 [place] 907513-04-20 10:39:00 Test Item Value Reference Range Interpretation Comments Hgb (test code = Hgb) 12.2 12.0-16.0 [place] 907513-04-20 10:39:00 Test Item Value Reference Range Interpretation Comments Hct (test code = Hct) 36.2 36.0-48.0 [facility] RegionalGcxgmpaGAUZDDUAZD0592-25-92 10:39:00 Test Item Value Reference Range Interpretation Comments MCV (test code = MCV) 91.6 80.0-98.0 [facility] RegionalMavzuzsXHYAUKAAJV8009-73-75 10:39:00 Test Item Value Reference Range Interpretation Comments MCH (test code = MCH) 30.9 pg 27.0-31.0 [facility] RegionalMiwnfctUDISMTPKAD3329-79-78 10:39:00 Test Item Value Reference Range Interpretation Comments MCHC (test code = MCHC) 33.7 32.0-36.0 [facility] RegionalCgkrrrnZOQUEQSTJZ0013-86-79 10:39:00 Test Item Value Reference Range Interpretation Comments RDW (test code = RDW) 13.1 11.5-14.5 [facility] RegionalBonohfiFDRRQSOKVO3284-53-20 10:39:00 Test Item Value Reference Range Interpretation Comments Platelet (test code = Platelet) 326 024-450 [facility] RegionalUpikypxHQGPBHBNUS5962-42-04 10:39:00 Test Item Value Reference Range Interpretation Comments MPV (test code = MPV) 7.6 7.4-10.4 [facility] CenterKrleuqsKAERKYONN4439-03-78 10:39:00 Test Item Value Reference Range Interpretation Comments Glucose Lvl (test code = Glucose Lvl) 111 70-99 [facility] CenterLudsjoeLMVRBSTGU5202-65-73 10:39:00 Test Item Value Reference Range Interpretation Comments BUN (test code = BUN) 7 7-22 [facility] CenterOxclrlzLTMXUPWCQ9362-28-94 10:39:00 Test Item Value Reference Range Interpretation Comments Creatinine Lvl (test code = Creatinine 0.51 0.50-1.40 Lvl) [facility] CenterFknpqhkOYDOZTSWX7539-34-45 10:39:00 Test Item Value Reference Range Interpretation Comments Sodium Lvl (test code = Sodium Lvl) 141 135-145 [facility] CenterAhfwiivZOISCTWBJ0722-50-64 10:39:00 Test Item Value Reference Range Interpretation Comments Potassium Lvl (test code = Potassium 3.3 3.5-5.1 Lvl) [facility] CenterXevlmaoGQNGGSKOH8278-23-66 10:39:00 Test Item Value Reference Range Interpretation Comments Chloride Lvl (test code = Chloride Lvl) 111 95-109 [facility] CenterFyubzaeCCJMYYBYP2395-50-88 10:39:00 Test Item Value Reference Range Interpretation Comments CO2 (test code = CO2) 24 24-32 [facility] CenterUvgstxiCXCWFDNWN7840-15-55 10:39:00 Test Item Value Reference Range Interpretation Comments Calcium Lvl (test code = Calcium Lvl) 9.1 8.5-10.5 [facility] CenterQfxwifmPWHTSQZKE9501-64-47 10:39:00 Test Item Value Reference Range Interpretation Comments Total Protein (test code = Total 7.1 6.4-8.4 Protein) [facility] CenterNgfcgbyZOTMEKWEF2359-48-77 10:39:00 Test Item Value Reference Range Interpretation Comments Albumin Lvl (test code = Albumin Lvl) 3.5 3.5-5.0 [facility] CenterDsazcooXFPJCDBNF9518-45-66 10:39:00 Test Item Value Reference Range Interpretation Comments ALT (test code = ALT) 58 See_Comment [Auto mated message] The system which ge nerated this result transmit jessie reference range : <=65. The reference range was not used to interpr et this result as mary l/abnormal. [facility] CenterAdnhseeBKDGYVWEI2812-96-56 10:39:00 Test Item Value Reference Range Interpretation Comments AST (test code = AST) 30 See_Comment [Auto mated message] The system which ge nerated this result transmit jessie reference range : <=37. The reference range was not used to interpr et this result as mary l/abnormal. [facility] CenterRzstjrwFCLCWHWHP2040-39-44 10:39:00 Test Item Value Reference Range Interpretation Comments Alk Phos (test code = Alk Phos) 81 39-136 [facility] CenterUcwkyyvGWUDFPIOD0286-53-27 10:39:00 Test Item Value Reference Range Interpretation Comments Bili Total (test code = Bili Total) 0.5 0.2-1.3 [facility] CenterUvypckyXTLMNTCJP9048-69-20 10:39:00 Test Item Value Reference Range Interpretation Comments AGAP (test code = AGAP) 9.3 10.0-20.0 [facility] CenterGvwsasoCZKVWQPRA1937-24-52 10:39:00 Test Item Value Reference Range Interpretation Comments B/C Ratio (test code = B/C Ratio) 14 1 6-25 [facility] CenterRansxnnVUTBNCBNQ4334-11-72 10:39:00 Test Item Value Reference Range Interpretation Comments Globulin (test code = Globulin) 3.6 2.7-4.2 [place] 691863-04-20 10:39:00 Test Item Value Reference Range Interpretation Comments A/G Ratio (test code = A/G Ratio) 1.0 1 0.7-1.6 [place] 691863-04-20 10:39:00 Test Item Value Reference Range Interpretation Comments eGFR (test code = eGFR) 129 [facility] RegionalGtdomghSUBTOOBQJU1427-76-03 10:39:00 Test Item Value Reference Range Interpretation Comments Segs (test code = Segs) 68.1 45.0-75.0 [place] 907513-04-20 10:39:00 Test Item Value Reference Range Interpretation Comments Lymphocytes (test code = Lymphocytes) 23.0 20.0-40.0 [place] 907513-04-20 10:39:00 Test Item Value Reference Range Interpretation Comments Monocytes (test code = Monocytes) 8.1 2.0-12.0 [facility] RegionalCzjtwtjPWWVFMAUQT9491-06-91 10:39:00 Test Item Value Reference Range Interpretation Comments Eosinophils (test code = 0.2 See_Comment [A utomated message] The Eosinophils) system which ge nerated this result tra nsmitted reference range : <=4.0. The reference r marleen was not used to int erpret this result as normal/abnormal . [facility] RegionalRydznyzPJRBUHDKFK9505-51-32 10:39:00 Test Item Value Reference Range Interpretation Comments Basophils (test code = 0.6 See_Comment [Aut omated message] The Basophils) system which ge nerated this result tra nsmitted reference range : <=1.0. The reference r marleen was not used to int erpret this result as normal/abnormal . [facility] RegionalKdtksezTEUCCDBOVX0520-50-30 10:39:00 Test Item Value Reference Range Interpretation Comments Neutrophils # (test code = Neutrophils 5.1 1.5-8.1 #) [place] 907513-04-20 10:39:00 Test Item Value Reference Range Interpretation Comments Lymphocytes # (test code = Lymphocytes 1.7 1.0-5.5 #) [facility] RegionalOfwsvnyRXVZJPGZAQ7399-94-32 10:39:00 Test Item Value Reference Range Interpretation Comments Monocytes # (test code 0.6 See_Comment [Aut omated message] The = Monocytes #) system which generated this result tra nsmitted reference range : <=0.8. The reference r marleen was not used to int erpret this result as normal/abnormal . [facility] RegionalJltxpnwMJEFWVRLET5796-07-37 10:39:00 Test Item Value Reference Range Interpretation Comments WBC (test code = WBC) 7.5 3.7-10.4 [facility] RegionalVvjtlfcRCXMNKSGXI2636-11-29 10:39:00 Test Item Value Reference Range Interpretation Comments RBC (test code = RBC) 3.95 4.20-5.40 [facility] RegionalGuzectqBVLLVOSIZL1394-21-44 10:39:00 Test Item Value Reference Range Interpretation Comments Hgb (test code = Hgb) 12.2 12.0-16.0 [place] 907513-04-20 10:39:00 Test Item Value Reference Range Interpretation Comments Hct (test code = Hct) 36.2 36.0-48.0 [facility] RegionalJcaqfanLWVRWVAICV8841-41-85 10:39:00 Test Item Value Reference Range Interpretation Comments MCV (test code = MCV) 91.6 80.0-98.0 [facility] RegionalRwxakywVSHDMBFTMR4359-20-09 10:39:00 Test Item Value Reference Range Interpretation Comments MCH (test code = MCH) 30.9 pg 27.0-31.0 [facility] RegionalAzqxopbRKDTFEYNHP6243-03-95 10:39:00 Test Item Value Reference Range Interpretation Comments MCHC (test code = MCHC) 33.7 32.0-36.0 [facility] RegionalXafrcitXDYVCKPEEZ8150-56-49 10:39:00 Test Item Value Reference Range Interpretation Comments RDW (test code = RDW) 13.1 11.5-14.5 [facility] RegionalRhbtzbeIMDOSRRTVN5201-91-35 10:39:00 Test Item Value Reference Range Interpretation Comments Platelet (test code = Platelet) 326 133-450 [facility] RegionalDhbponqDTNQZRADMA5820-64-34 10:39:00 Test Item Value Reference Range Interpretation Comments MPV (test code = MPV) 7.6 7.4-10.4 [facility] CenterKugmqmtFXIWBMUPI6535-23-40 10:39:00 Test Item Value Reference Range Interpretation Comments Glucose Lvl (test code = Glucose Lvl) 111 70-99 [facility] CenterTkiehlwAINCXOEXS7787-96-46 10:39:00 Test Item Value Reference Range Interpretation Comments BUN (test code = BUN) 7 - [facility] CenterQimzqnaMTXBZUHIE0642-11-73 10:39:00 Test Item Value Reference Range Interpretation Comments Glucose Lvl (test code = Glucose Lvl) 111 70-99 [facility] CenterJpoubvvUSDISSIRU0439-77-91 10:39:00 Test Item Value Reference Range Interpretation Comments BUN (test code = BUN) 7 - [facility] CenterQcspumxVQQNHFBBR9813-61-85 10:39:00 Test Item Value Reference Range Interpretation Comments Creatinine Lvl (test code = Creatinine 0.51 0.50-1.40 Lvl) [facility] CenterKaudhimJDEHLLRAR7069-68-24 10:39:00 Test Item Value Reference Range Interpretation Comments Sodium Lvl (test code = Sodium Lvl) 141 135-145 [facility] CenterObscxqvUISUWPXUE0429-04-57 10:39:00 Test Item Value Reference Range Interpretation Comments Potassium Lvl (test code = Potassium 3.3 3.5-5.1 Lvl) [facility] CenterLhhjinpHWZLKVEFF5873-41-85 10:39:00 Test Item Value Reference Range Interpretation Comments Chloride Lvl (test code = Chloride Lvl) 111 95-109 [facility] CenterQjzcmhmXOOZOIAKI4718-16-84 10:39:00 Test Item Value Reference Range Interpretation Comments CO2 (test code = CO2) 24 24-32 [facility] CenterWgqixmeRARFBRSLM0663-83-83 10:39:00 Test Item Value Reference Range Interpretation Comments Creatinine Lvl (test code = Creatinine 0.51 0.50-1.40 Lvl) [facility] CenterMjrleitQCFQCAPDH4799-69-54 10:39:00 Test Item Value Reference Range Interpretation Comments Calcium Lvl (test code = Calcium Lvl) 9.1 8.5-10.5 [facility] CenterJmwyzsmBKNCOWLPE8271-99-29 10:39:00 Test Item Value Reference Range Interpretation Comments Total Protein (test code = Total 7.1 6.4-8.4 Protein) [facility] CenterUvmzyrlMDDRUMOBO8362-89-23 10:39:00 Test Item Value Reference Range Interpretation Comments Albumin Lvl (test code = Albumin Lvl) 3.5 3.5-5.0 [facility] CenterCvlcdesKOCDFITKX7027-40-59 10:39:00 Test Item Value Reference Range Interpretation Comments ALT (test code = ALT) 58 See_Comment [Auto mated message] The system which ge nerated this result transmit jessie reference range : <=65. The reference range was not used to interpr et this result as mary l/abnormal. [facility] CenterFukefhcGEOPDWGWI4564-53-78 10:39:00 Test Item Value Reference Range Interpretation Comments AST (test code = AST) 30 See_Comment [Auto mated message] The system which ge nerated this result transmit jessie reference range : <=37. The reference range was not used to interpr et this result as mary l/abnormal. [facility] CenterWjydhoxKSKYXBOFW2487-84-65 10:39:00 Test Item Value Reference Range Interpretation Comments Alk Phos (test code = Alk Phos) 81 39-136 [facility] CenterSzrlgriYLRDTBCQX5819-28-69 10:39:00 Test Item Value Reference Range Interpretation Comments Bili Total (test code = Bili Total) 0.5 0.2-1.3 [facility] CenterWokaoyjYNDOTXZTF5889-38-32 10:39:00 Test Item Value Reference Range Interpretation Comments AGAP (test code = AGAP) 9.3 10.0-20.0 [facility] CenterLpfgtlmWYYYUMRTJ1082-62-84 10:39:00 Test Item Value Reference Range Interpretation Comments B/C Ratio (test code = B/C Ratio) 14 1 6-25 [facility] CenterLgxriviMIWZDCOZF3111-85-18 10:39:00 Test Item Value Reference Range Interpretation Comments Globulin (test code = Globulin) 3.6 2.7-4.2 [facility] CenterGujnvblHYLLBAWYP1374-63-48 10:39:00 Test Item Value Reference Range Interpretation Comments Sodium Lvl (test code = Sodium Lvl) 141 135-145 [facility] CenterWkzwjwoMCWMAKCWH8317-15-05 10:39:00 Test Item Value Reference Range Interpretation Comments A/G Ratio (test code = A/G Ratio) 1.0 1 0.7-1.6 [facility] CenterVtsrcwfLPBBIXGOJ4073-73-69 10:39:00 Test Item Value Reference Range Interpretation Comments eGFR (test code = eGFR) 129 [facility] CenterZykotxcPNLIQAPDAO3357-15-65 10:39:00 Test Item Value Reference Range Interpretation Comments Segs (test code = Segs) 68.1 45.0-75.0 [facility] CenterOzkpfueKGKBUJKAMC9524-69-89 10:39:00 Test Item Value Reference Range Interpretation Comments Lymphocytes (test code = Lymphocytes) 23.0 20.0-40.0 [facility] RegionalGtcbeubZPRUSRUAVB9916-79-49 10:39:00 Test Item Value Reference Range Interpretation Comments Monocytes (test code = Monocytes) 8.1 2.0-12.0 [facility] RegionalObrjkxfRMDGRQMVCD8676-59-30 10:39:00 Test Item Value Reference Range Interpretation Comments Eosinophils (test code = 0.2 See_Comment [A utomated message] The Eosinophils) system which ge nerated this result tra nsmitted reference range : <=4.0. The reference r marleen was not used to int erpret this result as normal/abnormal . [facility] RegionalNjritxwKKQCABGYLM7126-18-41 10:39:00 Test Item Value Reference Range Interpretation Comments Basophils (test code = 0.6 See_Comment [Aut omated message] The Basophils) system which ge nerated this result tra nsmitted reference range : <=1.0. The reference r marleen was not used to int erpret this result as normal/abnormal . [facility] RegionalKmlbedbIHYUUHKOMN7278-97-00 10:39:00 Test Item Value Reference Range Interpretation Comments Neutrophils # (test code = Neutrophils 5.1 1.5-8.1 #) [facility] RegionalSufysoiADGVKEMXXF5666-42-00 10:39:00 Test Item Value Reference Range Interpretation Comments Lymphocytes # (test code = Lymphocytes 1.7 1.0-5.5 #) [facility] RegionalCqzfbamCEJBJAYZXW5912-57-31 10:39:00 Test Item Value Reference Range Interpretation Comments Monocytes # (test code 0.6 See_Comment [Aut omated message] The = Monocytes #) system which generated this result tra nsmitted reference range : <=0.8. The reference r marleen was not used to int erpret this result as normal/abnormal . [facility]CrfbzkdPPZHMLRHT6949-17-15 10:39:00 Test Item Value Reference Range Interpretation Comments Potassium Lvl (test code = Potassium 3.3 3.5-5.1 Lvl) [facility]DbghgqvVVKLEBONGJ2386-43-68 10:39:00 Test Item Value Reference Range Interpretation Comments WBC (test code = WBC) 7.5 3.7-10.4 [facility] RegionalZdcxtmyQGRSAKBETV3565-16-28 10:39:00 Test Item Value Reference Range Interpretation Comments RBC (test code = RBC) 3.95 4.20-5.40 [facility] RegionalGriufxyVPCESZEYCQ0998-84-03 10:39:00 Test Item Value Reference Range Interpretation Comments Hgb (test code = Hgb) 12.2 12.0-16.0 [facility] RegionalEurpxctXTXRCYRNQB0134-76-19 10:39:00 Test Item Value Reference Range Interpretation Comments Hct (test code = Hct) 36.2 36.0-48.0 [facility] RegionalEtwbgqpRYTLLQJWJW3657-07-16 10:39:00 Test Item Value Reference Range Interpretation Comments MCV (test code = MCV) 91.6 80.0-98.0 [facility] RegionalDetjjgxBRZSRJWKDN6077-19-26 10:39:00 Test Item Value Reference Range Interpretation Comments MCH (test code = MCH) 30.9 pg 27.0-31.0 [facility] RegionalTnihvqfITPCNOGOJX7097-44-80 10:39:00 Test Item Value Reference Range Interpretation Comments MCHC (test code = MCHC) 33.7 32.0-36.0 [facility] RegionalZadgztfBNBBCCAFSZ3776-40-68 10:39:00 Test Item Value Reference Range Interpretation Comments RDW (test code = RDW) 13.1 11.5-14.5 [facility] RegionalVeatjvjHQTLOSEKIN4932-80-81 10:39:00 Test Item Value Reference Range Interpretation Comments Platelet (test code = Platelet) 326 133-450 [facility] RegionalTmmbthqGMBSJSTQVX3215-37-76 10:39:00 Test Item Value Reference Range Interpretation Comments MPV (test code = MPV) 7.6 7.4-10.4 [facility] CenterQdguaghURMFAMGSK9594-10-42 10:39:00 Test Item Value Reference Range Interpretation Comments Chloride Lvl (test code = Chloride Lvl) 111 95-109 [facility] CenterYjquujsHKHKCTBTE2737-93-57 10:39:00 Test Item Value Reference Range Interpretation Comments CO2 (test code = CO2) 24 24-32 [facility] CenterUwasqyaDAIKUWNVQ8117-10-10 10:39:00 Test Item Value Reference Range Interpretation Comments Calcium Lvl (test code = Calcium Lvl) 9.1 8.5-10.5 [facility] CenterQbqhbjvIOAKSNRKH1937-18-70 10:39:00 Test Item Value Reference Range Interpretation Comments Total Protein (test code = Total 7.1 6.4-8.4 Protein) [facility] CenterEmsltbaWGEVPUANX4455-61-69 10:39:00 Test Item Value Reference Range Interpretation Comments Albumin Lvl (test code = Albumin Lvl) 3.5 3.5-5.0 IntroFlyArzhznyKNORKZWZK6896-21-89 10:39:00 Test Item Value Reference Range Interpretation Comments ALT (test code = ALT) 58 See_Comment [Auto mated message] The system which ge nerated this result transmit jessie reference range : <=65. The reference range was not used to interpr et this result as mary l/abnormal. IntroFlyEgnjkvoIYUGDJIHA3102-75-42 10:39:00 Test Item Value Reference Range Interpretation Comments AST (test code = AST) 30 See_Comment [Auto mated message] The system which ge nerated this result transmit jessie reference range : <=37. The reference range was not used to interpr et this result as mary l/abnormal. IntroFlyRucoxfvMSBMXZQTB7433-07-75 10:39:00 Test Item Value Reference Range Interpretation Comments Alk Phos (test code = Alk Phos) 81 39-136 [facility] WkuxotmIMPRJIBFE7296-16-54 10:39:00 Test Item Value Reference Range Interpretation Comments Bili Total (test code = Bili Total) 0.5 0.2-1.3 [facility] DptmgyyPEQYPKXXI7028-65-73 10:39:00 Test Item Value Reference Range Interpretation Comments AGAP (test code = AGAP) 9.3 10.0-20.0 [facility] NuqfmrhEEZPURBUZ3918-74-87 10:39:00 Test Item Value Reference Range Interpretation Comments B/C Ratio (test code = B/C Ratio) 14 1 6-25 [facility] CfbujyoWMKXBQRSM2758-77-38 10:39:00 Test Item Value Reference Range Interpretation Comments Globulin (test code = Globulin) 3.6 2.7-4.2 [facility] GotzfyfHURDZQJHO3443-43-61 10:39:00 Test Item Value Reference Range Interpretation Comments A/G Ratio (test code = A/G Ratio) 1.0 1 0.7-1.6 [facility] OmsflljDAHBYPUQL9795-06-98 10:39:00 Test Item Value Reference Range Interpretation Comments eGFR (test code = eGFR) 129 [facility] PurvhqmSAJWHRBQOJ7644-22-82 10:39:00 Test Item Value Reference Range Interpretation Comments Segs (test code = Segs) 68.1 45.0-75.0 [facility] RegionalIexnbayCPZVCUDOLY6200-76-01 10:39:00 Test Item Value Reference Range Interpretation Comments Lymphocytes (test code = Lymphocytes) 23.0 20.0-40.0 [facility] RegionalEgruucfSKFSUUKUGW6428-87-09 10:39:00 Test Item Value Reference Range Interpretation Comments Monocytes (test code = Monocytes) 8.1 2.0-12.0 [facility] RegionalIlaittcMWNSCQOMAE3034-60-45 10:39:00 Test Item Value Reference Range Interpretation Comments Eosinophils (test code = 0.2 See_Comment [A utomated message] The Eosinophils) system which ge nerated this result tra nsmitted reference range : <=4.0. The reference r marleen was not used to int erpret this result as normal/abnormal . [facility] RegionalMvchvsfSNFXAZMZAY8999-19-66 10:39:00 Test Item Value Reference Range Interpretation Comments Basophils (test code = 0.6 See_Comment [Aut omated message] The Basophils) system which ge nerated this result tra nsmitted reference range : <=1.0. The reference r marleen was not used to int erpret this result as normal/abnormal . [facility] RegionalShwmjeuJOZIFJHERH5168-83-61 10:39:00 Test Item Value Reference Range Interpretation Comments Neutrophils # (test code = Neutrophils 5.1 1.5-8.1 #) [facility] RegionalNpugptqNPDDASGCKX8753-16-77 10:39:00 Test Item Value Reference Range Interpretation Comments Lymphocytes # (test code = Lymphocytes 1.7 1.0-5.5 #) [facility] RegionalSsqjxdsWSORCFXGGH9277-97-86 10:39:00 Test Item Value Reference Range Interpretation Comments Monocytes # (test code 0.6 See_Comment [Aut omated message] The = Monocytes #) system which generated this result tra nsmitted reference range : <=0.8. The reference r marleen was not used to int erpret this result as normal/abnormal . [facility] RegionalKwfdsrmULDQCKSIPW3437-95-45 10:39:00 Test Item Value Reference Range Interpretation Comments WBC (test code = WBC) 7.5 3.7-10.4 [place] 907513-04-20 10:39:00 Test Item Value Reference Range Interpretation Comments RBC (test code = RBC) 3.95 4.20-5.40 [place] 907513-04-20 10:39:00 Test Item Value Reference Range Interpretation Comments Hgb (test code = Hgb) 12.2 12.0-16.0 [place] 907513-04-20 10:39:00 Test Item Value Reference Range Interpretation Comments Hct (test code = Hct) 36.2 36.0-48.0 [place] 907513-04-20 10:39:00 Test Item Value Reference Range Interpretation Comments MCV (test code = MCV) 91.6 80.0-98.0 [place] 907513-04-20 10:39:00 Test Item Value Reference Range Interpretation Comments MCH (test code = MCH) 30.9 pg 27.0-31.0 [place] 907513-04-20 10:39:00 Test Item Value Reference Range Interpretation Comments MCHC (test code = MCHC) 33.7 32.0-36.0 [place] 907513-04-20 10:39:00 Test Item Value Reference Range Interpretation Comments RDW (test code = RDW) 13.1 11.5-14.5 [place] 907513-04-20 10:39:00 Test Item Value Reference Range Interpretation Comments Platelet (test code = Platelet) 326 133-450 [facility] RegionalJzxbiejABLBXHMMHL5346-39-06 10:39:00 Test Item Value Reference Range Interpretation Comments MPV (test code = MPV) 7.6 7.4-10.4 [place] 904483-04-19 13:23:00 Test Item Value Reference Range Interpretation Comments Glucose POC (test code = Glucose POC) 77 70-99 [place] 904483-04-19 13:23:00 Test Item Value Reference Range Interpretation Comments Gluc POC Comment 1 (test code Notified RN/MD = Gluc POC Comment 1) [place] [address]-04-19 13:23:00 Test Item Value Reference Range Interpretation Comments Glucose POC (test code = Glucose POC) 77 70-99 [place] 904483-04-19 13:23:00 Test Item Value Reference Range Interpretation Comments Gluc POC Comment 1 (test code Notified RN/MD = Gluc POC Comment 1) [place] 904483-04-19 13:23:00 Test Item Value Reference Range Interpretation Comments Glucose POC (test code = Glucose POC) 77 70-99 [facility]2023-04-19 13:23:00 Test Item Value Reference Range Interpretation Comments Gluc POC Comment 1 (test code Notified RN/MD = Gluc POC Comment 1) [place] 904483-04-19 13:23:00 Test Item Value Reference Range Interpretation Comments Glucose POC (test code = Glucose POC) 77 70-99 [place] 904483-04-19 13:23:00 Test Item Value Reference Range Interpretation Comments Gluc POC Comment 1 (test code Notified RN/MD = Gluc POC Comment 1) [place] [address]-04-19 13:02:00 Test Item Value Reference Range Interpretation Comments U Preg (test code = U Negative (02/16/23 8:02 Preg) AM) [place] [address]-04-19 13:02:00 Test Item Value Reference Range Interpretation Comments U Preg (test code = U Negative (02/16/23 8:02 Preg) AM) [facility] CenterAieezhyCKOQMDCYO9526-89-69 13:02:00 Test Item Value Reference Range Interpretation Comments U Preg (test code = U Negative (02/16/23 8:02 Preg) AM) [place] [address]-04-19 13:02:00 Test Item Value Reference Range Interpretation Comments U Preg (test code = U Negative (02/16/23 8:02 Preg) AM) [facility] RegionalAobvkatPDJNLQJLGI2958-24-33 15:40:00 Test Item Value Reference Range Interpretation Comments Lymphocytes # (test code = Lymphocytes 1.9 1.0-5.5 #) [facility] RegionalBrvubygFTUOEYZQAE0865-35-14 15:40:00 Test Item Value Reference Range Interpretation Comments Monocytes # (test code 0.5 See_Comment [Aut omated message] The = Monocytes #) system which generated this result tra nsmitted reference range : <=0.8. The reference r marleen was not used to int erpret this result as normal/abnormal . [facility] RegionalWsoanltAEVCZOKLGA6697-90-23 15:40:00 Test Item Value Reference Range Interpretation Comments Eosinophils # (test code 0.1 See_Comment [A utomated message] The = Eosinophils #) system whic h generated this result tra nsmitted reference range : <=0.5. The reference r marleen was not used to int erpret this result as normal/abnormal . [facility] RegionalFdajuzdHGGBWZGAVG3279-20-33 15:40:00 Test Item Value Reference Range Interpretation Comments Basophils # (test code 0.1 See_Comment [Aut omated message] The = Basophils #) system which generated this result tra nsmitted reference range : <=0.2. The reference r marleen was not used to int erpret this result as normal/abnormal . [facility] RegionalDhpgxizMKKCIKGXDF0673-30-82 15:40:00 Test Item Value Reference Range Interpretation Comments WBC (test code = WBC) 6.7 3.7-10.4 [facility] RegionalEidnulwYHCAUOWOPS1087-99-07 15:40:00 Test Item Value Reference Range Interpretation Comments RBC (test code = RBC) 4.36 4.20-5.40 [facility] RegionalDtztuhfVZHRDHVEJO8432-86-97 15:40:00 Test Item Value Reference Range Interpretation Comments Hgb (test code = Hgb) 13.6 12.0-16.0 [facility] RegionalMlypffwTDBZODNWPT3020-81-86 15:40:00 Test Item Value Reference Range Interpretation Comments Hct (test code = Hct) 40.3 36.0-48.0 [facility] RegionalVmugtmeEVSXJHRRGK4808-24-16 15:40:00 Test Item Value Reference Range Interpretation Comments MCV (test code = MCV) 92.4 80.0-98.0 [facility] RegionalWlbamlgRRUOLMXOQC7540-06-80 15:40:00 Test Item Value Reference Range Interpretation Comments MCH (test code = MCH) 31.1 pg 27.0-31.0 [facility] RegionalAbwpvcwRMDZKENOEI3244-04-81 15:40:00 Test Item Value Reference Range Interpretation Comments MCHC (test code = MCHC) 33.6 32.0-36.0 [facility] RegionalRkthmjzIRFLOMSCSV7996-36-33 15:40:00 Test Item Value Reference Range Interpretation Comments RDW (test code = RDW) 13.2 11.5-14.5 [facility] RegionalPxbscszTNQLEAAUXQ5124-65-57 15:40:00 Test Item Value Reference Range Interpretation Comments Platelet (test code = Platelet) 401 133-450 [facility] RegionalVrymxskJFEFFCMIQK7215-78-59 15:40:00 Test Item Value Reference Range Interpretation Comments MPV (test code = MPV) 7.7 7.4-10.4 [facility] RegionalZicgqrvOAEDYGFIXS5312-96-12 15:40:00 Test Item Value Reference Range Interpretation Comments PT (test code = PT) 13.0 s 12.0-14.7 [facility] RegionalLubafyiKLVWCQRKIA9059-45-94 15:40:00 Test Item Value Reference Range Interpretation Comments INR (test code = INR) 0.98 1 0.85-1.17 [facility] RegionalZxybowfUKYAZUCUXQ9030-83-33 15:40:00 Test Item Value Reference Range Interpretation Comments PTT (test code = PTT) 27.1 s 22.9-35.8 [place] [address]-04-13 15:40:00 Test Item Value Reference Range Interpretation Comments Eosinophils # (test code 0.1 See_Comment [A utomated message] The = Eosinophils #) system whic h generated this result tra nsmitted reference range : <=0.5. The reference r marleen was not used to int erpret this result as normal/abnormal . [facility] RegionalObwhntwCGDHCBAVGR6426-48-80 15:40:00 Test Item Value Reference Range Interpretation Comments Basophils # (test code 0.1 See_Comment [Aut omated message] The = Basophils #) system which generated this result tra nsmitted reference range : <=0.2. The reference r marleen was not used to int erpret this result as normal/abnormal . [facility] RegionalJehzhzoVKHEOAHRHW2941-81-31 15:40:00 Test Item Value Reference Range Interpretation Comments PT (test code = PT) 13.0 s 12.0-14.7 [facility] RegionalPfjqrwxMHZZAYMLIY4050-05-47 15:40:00 Test Item Value Reference Range Interpretation Comments INR (test code = INR) 0.98 1 0.85-1.17 [place] [address]-04-13 15:40:00 Test Item Value Reference Range Interpretation Comments PTT (test code = PTT) 27.1 s 22.9-35.8 [place] [address]-04-13 15:40:00 Test Item Value Reference Range Interpretation Comments Coronavirus (COVID-19) Not Detected (02/10/23 KARLO (test code = 10:40 AM) Coronavirus (COVID-19) KARLO) [place] [address]-04-13 15:40:00 Test Item Value Reference Range Interpretation Comments Coronavirus (COVID-19) Not Detected (02/10/23 KARLO (test code = 10:40 AM) Coronavirus (COVID-19) KARLO) [facility] AND [id number] 15:40:00 Test Item Value Reference Range Interpretation Comments UA Turbidity (test code = Clear (02/10/23 10:40 UA Turbidity) AM) [facility] AND [id number] 15:40:00 Test Item Value Reference Range Interpretation Comments UA Spec Grav (test code = UA Spec 1.020 1 Grav) [facility] AND [id number] 15:40:00 Test Item Value Reference Range Interpretation Comments UA pH (test code = UA pH) 5.0 1 5.0-8.0 [facility] AND [id number] 15:40:00 Test Item Value Reference Range Interpretation Comments UA Protein (test code = UA Negative mg/dL Protein) [facility] AND [id number] 15:40:00 Test Item Value Reference Range Interpretation Comments UA Glucose (test code = UA Negative mg/dL Glucose) [facility] AND [id number] 15:40:00 Test Item Value Reference Range Interpretation Comments UA Ketones (test code = UA Negative mg/dL Ketones) [facility] AND [id number] 15:40:00 Test Item Value Reference Range Interpretation Comments UA Bili (test code = Negative *NA*(02/10/23 UA Bili) 10:40 AM) [facility] AND [id number] 15:40:00 Test Item Value Reference Range Interpretation Comments UA Blood (test code = Small *ABN*(02/10/23 UA Blood) 10:40 AM) [facility] AND [id number] 15:40:00 Test Item Value Reference Range Interpretation Comments UA Nitrite (test code Negative (02/10/23 10:40 = UA Nitrite) AM) [facility] AND [id number] 15:40:00 Test Item Value Reference Range Interpretation Comments UA Leuk Est (test Negative (02/10/23 10:40 code = UA Leuk Est) AM) [facility] AND [id number] 15:40:00 Test Item Value Reference Range Interpretation Comments UA Ascorbic Acid (test Negative 2*NA*(02/10/23 code = UA Ascorbic 10:40 AM) Acid) [facility] [id number] 15:40:00 Test Item Value Reference Range Interpretation Comments UA Sq Epi (test code = UA Sq Occasional /LPF Epi) [facility] [id number] 15:40:00 Test Item Value Reference Range Interpretation Comments UA WBC (test code = 2 See_Comment [Automa jessie message] The UA WBC) system which ge nerated this result transmit jessie reference range : <=5. The reference range was not used to interpr et this result as mary l/abnormal. [facility] [id number] 15:40:00 Test Item Value Reference Range Interpretation Comments UA RBC (test code = 3 See_Comment [Automa jessie message] The UA RBC) system which ge nerated this result transmit jessie reference range : <=2. The reference range was not used to interpr et this result as mary l/abnormal. [facility] Сергей AND [id number] 15:40:00 Test Item Value Reference Range Interpretation Comments UA Color (test code = UA Color) Ltyellow [facility] [id number] 15:40:00 Test Item Value Reference Range Interpretation Comments UA Urobilinogen (test code = UA <=1.0 mg/dL 0.1-1.0 Urobilinogen) [facility] [id number] 15:40:00 Test Item Value Reference Range Interpretation Comments UA Turbidity (test code = Clear (02/10/23 10:40 UA Turbidity) AM) [facility] AND [id number] 15:40:00 Test Item Value Reference Range Interpretation Comments UA Spec Grav (test code = UA Spec 1.020 1 Grav) [facility] [id number] 15:40:00 Test Item Value Reference Range Interpretation Comments UA pH (test code = UA pH) 5.0 1 5.0-8.0 [facility] [id number] 15:40:00 Test Item Value Reference Range Interpretation Comments UA Protein (test code = UA Negative mg/dL Protein) [facility] AND [id number] 15:40:00 Test Item Value Reference Range Interpretation Comments UA Glucose (test code = UA Negative mg/dL Glucose) [facility] AND [id number] 15:40:00 Test Item Value Reference Range Interpretation Comments UA Ketones (test code = UA Negative mg/dL Ketones) [facility] AND [id number] 15:40:00 Test Item Value Reference Range Interpretation Comments UA Bili (test code = Negative *NA*(02/10/23 UA Bili) 10:40 AM) [facility] AND [id number] 15:40:00 Test Item Value Reference Range Interpretation Comments UA Blood (test code = Small *ABN*(02/10/23 UA Blood) 10:40 AM) [facility] AND [id number] 15:40:00 Test Item Value Reference Range Interpretation Comments UA Nitrite (test code Negative (02/10/23 10:40 = UA Nitrite) AM) [facility] AND [id number] 15:40:00 Test Item Value Reference Range Interpretation Comments UA Leuk Est (test Negative (02/10/23 10:40 code = UA Leuk Est) AM) [facility] AND [id number] 15:40:00 Test Item Value Reference Range Interpretation Comments UA Ascorbic Acid (test Negative 2*NA*(02/10/23 code = UA Ascorbic 10:40 AM) Acid) [facility] AND [id number] 15:40:00 Test Item Value Reference Range Interpretation Comments UA Sq Epi (test code = UA Sq Occasional /LPF Epi) [facility] AND [id number] 15:40:00 Test Item Value Reference Range Interpretation Comments UA WBC (test code = 2 See_Comment [Automa jessie message] The UA WBC) system which ge nerated this result transmit jessie reference range : <=5. The reference range was not used to interpr et this result as mary l/abnormal. [facility] AND [id number] 15:40:00 Test Item Value Reference Range Interpretation Comments UA RBC (test code = 3 See_Comment [Automa jessie message] The UA RBC) system which ge nerated this result transmit jessie reference range : <=2. The reference range was not used to interpr et this result as mary l/abnormal. [facility] AND [id number] 15:40:00 Test Item Value Reference Range Interpretation Comments UA Color (test code = UA Color) Ltyellow [facility] AND [id number] 15:40:00 Test Item Value Reference Range Interpretation Comments UA Urobilinogen (test code = UA <=1.0 mg/dL 0.1-1.0 Urobilinogen) [facility] [id number] 15:40:00 Test Item Value Reference Range Interpretation Comments U Preg (test code = U Negative (02/10/23 10:40 Preg) AM) [facility]2023-04-13 15:40:00 Test Item Value Reference Range Interpretation Comments Glucose Lvl (test code = Glucose Lvl) 97 70-99 [facility]2023-04-13 15:40:00 Test Item Value Reference Range Interpretation Comments BUN (test code = BUN) 18 7-22 [facility]2023-04-13 15:40:00 Test Item Value Reference Range Interpretation Comments Creatinine Lvl (test code = Creatinine 0.60 0.50-1.40 Lvl) [facility]2023-04-13 15:40:00 Test Item Value Reference Range Interpretation Comments Sodium Lvl (test code = Sodium Lvl) 136 135-145 [facility]2023-04-13 15:40:00 Test Item Value Reference Range Interpretation Comments Potassium Lvl (test code = Potassium 3.6 3.5-5.1 Lvl) [facility]2023-04-13 15:40:00 Test Item Value Reference Range Interpretation Comments Chloride Lvl (test code = Chloride Lvl) 109 95-109 [facility]2023-04-13 15:40:00 Test Item Value Reference Range Interpretation Comments CO2 (test code = CO2) 24 24-32 [facility]2023-04-13 15:40:00 Test Item Value Reference Range Interpretation Comments Calcium Lvl (test code = Calcium Lvl) 9.4 8.5-10.5 [facility]2023-04-13 15:40:00 Test Item Value Reference Range Interpretation Comments Total Protein (test code = Total 7.6 6.4-8.4 Protein) [facility]2023-04-13 15:40:00 Test Item Value Reference Range Interpretation Comments Albumin Lvl (test code = Albumin Lvl) 3.7 3.5-5.0 [facility]2023-04-13 15:40:00 Test Item Value Reference Range Interpretation Comments ALT (test code = ALT) 46 See_Comment [Auto mated message] The system which ge nerated this result transmit jessie reference range : <=65. The reference range was not used to interpr et this result as mary l/abnormal. [facility]2023-04-13 15:40:00 Test Item Value Reference Range Interpretation Comments AST (test code = AST) 17 See_Comment [Auto mated message] The system which ge nerated this result transmit jessie reference range : <=37. The reference range was not used to interpr et this result as mary l/abnormal. urturn2023-04-13 15:40:00 Test Item Value Reference Range Interpretation Comments Alk Phos (test code = Alk Phos) 77 39-136 [facility] [employer] [id number] 15:40:00 Test Item Value Reference Range Interpretation Comments Bili Total (test code = Bili Total) 0.3 0.2-1.3 [facility] [employer]2023-04-13 15:40:00 Test Item Value Reference Range Interpretation Comments AGAP (test code = AGAP) 6.6 10.0-20.0 urturn2023-04-13 15:40:00 Test Item Value Reference Range Interpretation Comments B/C Ratio (test code = B/C Ratio) 30 1 6-25 [facility] [employer]2023-04-13 15:40:00 Test Item Value Reference Range Interpretation Comments Globulin (test code = Globulin) 3.9 2.7-4.2 [facility] [employer]2023-04-13 15:40:00 Test Item Value Reference Range Interpretation Comments A/G Ratio (test code = A/G Ratio) 0.9 1 0.7-1.6 [employer]3-04-13 15:40:00 Test Item Value Reference Range Interpretation Comments eGFR (test code = eGFR) 125 [facility] [id number] 15:40:00 Test Item Value Reference Range Interpretation Comments Segs (test code = Segs) 62.0 45.0-75.0 [facility] OkpgwdtUQOHDWEKJX1286-80-77 15:40:00 Test Item Value Reference Range Interpretation Comments Lymphocytes (test code = Lymphocytes) 28.3 20.0-40.0 [place] [address]-04-13 15:40:00 Test Item Value Reference Range Interpretation Comments Monocytes (test code = Monocytes) 6.9 2.0-12.0 [place] [address]-04-13 15:40:00 Test Item Value Reference Range Interpretation Comments Eosinophils (test code = 2.0 See_Comment [A utomated message] The Eosinophils) system which ge nerated this result tra nsmitted reference range : <=4.0. The reference r marleen was not used to int erpret this result as normal/abnormal . [place] [address]-04-13 15:40:00 Test Item Value Reference Range Interpretation Comments Basophils (test code = 0.8 See_Comment [Aut omated message] The Basophils) system which ge nerated this result tra nsmitted reference range : <=1.0. The reference r marleen was not used to int erpret this result as normal/abnormal . [facility] RegionalVumgefcYNUULSTQLK2137-40-86 15:40:00 Test Item Value Reference Range Interpretation Comments Neutrophils # (test code = Neutrophils 4.2 1.5-8.1 #) [facility] RegionalBpqjpdeHUSZCGYUHI4550-04-14 15:40:00 Test Item Value Reference Range Interpretation Comments Basophils (test code = 0.8 See_Comment [Aut omated message] The Basophils) system which ge nerated this result tra nsmitted reference range : <=1.0. The reference r marleen was not used to int erpret this result as normal/abnormal . [facility] RegionalFlzwrcfLCFTEBVYTT6324-74-52 15:40:00 Test Item Value Reference Range Interpretation Comments Neutrophils # (test code = Neutrophils 4.2 1.5-8.1 #) [place] 907513-04-13 15:40:00 Test Item Value Reference Range Interpretation Comments Lymphocytes # (test code = Lymphocytes 1.9 1.0-5.5 #) [place] [address]-04-13 15:40:00 Test Item Value Reference Range Interpretation Comments Monocytes # (test code 0.5 See_Comment [Aut omated message] The = Monocytes #) system which generated this result tra nsmitted reference range : <=0.8. The reference r marleen was not used to int erpret this result as normal/abnormal . [facility] RegionalOdwqetvRACSYNZZDZ8601-59-75 15:40:00 Test Item Value Reference Range Interpretation Comments Eosinophils # (test code 0.1 See_Comment [A utomated message] The = Eosinophils #) system whic h generated this result tra nsmitted reference range : <=0.5. The reference r marleen was not used to int erpret this result as normal/abnormal . [facility] RegionalAzrlfvxZZFPBKKHUB8091-88-59 15:40:00 Test Item Value Reference Range Interpretation Comments Basophils # (test code 0.1 See_Comment [Aut omated message] The = Basophils #) system which generated this result tra nsmitted reference range : <=0.2. The reference r marleen was not used to int erpret this result as normal/abnormal . [facility] RegionalYimzayiAQMMFOBQNK3821-87-57 15:40:00 Test Item Value Reference Range Interpretation Comments WBC (test code = WBC) 6.7 3.7-10.4 [facility] RegionalPhgimyoQZPOSLPARV7872-77-89 15:40:00 Test Item Value Reference Range Interpretation Comments RBC (test code = RBC) 4.36 4.20-5.40 [facility] RegionalNpkmjlcJUMLKVGSSL2867-73-84 15:40:00 Test Item Value Reference Range Interpretation Comments Hgb (test code = Hgb) 13.6 12.0-16.0 [facility] RegionalNxinmtfDUURAKAWWQ1953-03-20 15:40:00 Test Item Value Reference Range Interpretation Comments Hct (test code = Hct) 40.3 36.0-48.0 [facility] RegionalWdoeapeVXUZZFSKFH7434-77-45 15:40:00 Test Item Value Reference Range Interpretation Comments MCV (test code = MCV) 92.4 80.0-98.0 [facility] RegionalFkkqykhTVFYXBWIAN7208-86-11 15:40:00 Test Item Value Reference Range Interpretation Comments MCH (test code = MCH) 31.1 pg 27.0-31.0 [facility] RegionalRiqphqzRRKDHNYRBX7990-30-07 15:40:00 Test Item Value Reference Range Interpretation Comments MCHC (test code = MCHC) 33.6 32.0-36.0 [facility] RegionalFpzqrrsRRKCKOVYXD1744-05-05 15:40:00 Test Item Value Reference Range Interpretation Comments RDW (test code = RDW) 13.2 11.5-14.5 [facility] RegionalIfktxysWBJWSGARIT7949-16-46 15:40:00 Test Item Value Reference Range Interpretation Comments Platelet (test code = Platelet) 401 133-450 [facility] RegionalKdycblxOHNSUIMJJB5561-23-24 15:40:00 Test Item Value Reference Range Interpretation Comments MPV (test code = MPV) 7.7 7.4-10.4 [facility] RegionalLuiifrtEELSTUCFPR2595-88-33 15:40:00 Test Item Value Reference Range Interpretation Comments PT (test code = PT) 13.0 s 12.0-14.7 [facility] RegionalTwaiynbQXJNTTCPAG5802-34-85 15:40:00 Test Item Value Reference Range Interpretation Comments INR (test code = INR) 0.98 1 0.85-1.17 [facility] RegionalMoibmulLUZHHKHJFV8548-52-11 15:40:00 Test Item Value Reference Range Interpretation Comments PTT (test code = PTT) 27.1 s 22.9-35.8 [facility] RegionalLmkchyvWNXMZPPOVS7717-62-91 15:40:00 Test Item Value Reference Range Interpretation Comments Eosinophils # (test code 0.1 See_Comment [A utomated message] The = Eosinophils #) system [facility] h generated this result tra nsmitted reference range : <=0.5. The reference r marleen was not used to int erpret this result as normal/abnormal . [facility] RegionalOmdijkvLLRYWCDZPE2696-68-63 15:40:00 Test Item Value Reference Range Interpretation Comments Basophils # (test code 0.1 See_Comment [Aut omated message] The = Basophils #) system which generated this result tra nsmitted reference range : <=0.2. The reference r marleen was not used to int erpret this result as normal/abnormal . [facility] RegionalQkwpfwsOKKIOHSZRL2329-23-59 15:40:00 Test Item Value Reference Range Interpretation Comments PT (test code = PT) 13.0 s 12.0-14.7 [facility] RegionalGhjosypWYIDPVJDAZ1864-96-40 15:40:00 Test Item Value Reference Range Interpretation Comments INR (test code = INR) 0.98 1 0.85-1.17 [place] 907513-04-13 15:40:00 Test Item Value Reference Range Interpretation Comments PTT (test code = PTT) 27.1 s 22.9-35.8 [facility] CenterChkafnnBUGXHDAGRG0669-40-46 15:40:00 Test Item Value Reference Range Interpretation Comments Coronavirus (COVID-19) Not Detected (02/10/23 KARLO (test code = 10:40 AM) Coronavirus (COVID-19) KARLO) [facility]jbgzlgUFHDNUOLSS4002-53-88 15:40:00 Test Item Value Reference Range Interpretation Comments Coronavirus (COVID-19) Not Detected (02/10/23 KARLO (test code = 10:40 AM) Coronavirus (COVID-19) KARLO) [facility] [id number] 15:40:00 Test Item Value Reference Range Interpretation Comments UA Turbidity (test code = Clear (02/10/23 10:40 UA Turbidity) AM) [facility] [id number] 15:40:00 Test Item Value Reference Range Interpretation Comments UA Spec Grav (test code = UA Spec 1.020 1 Grav) [facility] [id number] 15:40:00 Test Item Value Reference Range Interpretation Comments UA pH (test code = UA pH) 5.0 1 5.0-8.0 [facility] [id number] 15:40:00 Test Item Value Reference Range Interpretation Comments UA Protein (test code = UA Negative mg/dL Protein) [facility] [id number] 15:40:00 Test Item Value Reference Range Interpretation Comments UA Glucose (test code = UA Negative mg/dL Glucose) [facility] [id number] 15:40:00 Test Item Value Reference Range Interpretation Comments UA Ketones (test code = UA Negative mg/dL Ketones) [facility] [id number] 15:40:00 Test Item Value Reference Range Interpretation Comments UA Bili (test code = Negative *NA*(02/10/23 UA Bili) 10:40 AM) [facility] [id number] 15:40:00 Test Item Value Reference Range Interpretation Comments UA Blood (test code = Small *ABN*(02/10/23 UA Blood) 10:40 AM) [facility] [id number] 15:40:00 Test Item Value Reference Range Interpretation Comments UA Nitrite (test code Negative (02/10/23 10:40 = UA Nitrite) AM) [facility] [id number] 15:40:00 Test Item Value Reference Range Interpretation Comments UA Leuk Est (test Negative (02/10/23 10:40 code = UA Leuk Est) AM) [facility] AND [id number] 15:40:00 Test Item Value Reference Range Interpretation Comments UA Ascorbic Acid (test Negative 2*NA*(02/10/23 code = UA Ascorbic 10:40 AM) Acid) [facility] AND [id number] 15:40:00 Test Item Value Reference Range Interpretation Comments UA Sq Epi (test code = UA Sq Occasional /LPF Epi) [facility] AND [id number] 15:40:00 Test Item Value Reference Range Interpretation Comments UA WBC (test code = 2 See_Comment [Automa jessie message] The UA WBC) system which ge nerated this result transmit jessie reference range : <=5. The reference range was not used to interpr et this result as mary l/abnormal. [facility] AND [id number] 15:40:00 Test Item Value Reference Range Interpretation Comments UA RBC (test code = 3 See_Comment [Automa jessie message] The UA RBC) system which ge nerated this result transmit jessie reference range : <=2. The reference range was not used to interpr et this result as mary l/abnormal. [facility] AND [id number] 15:40:00 Test Item Value Reference Range Interpretation Comments UA Color (test code = UA Color) Ltyellow [facility] AND [id number] 15:40:00 Test Item Value Reference Range Interpretation Comments UA Urobilinogen (test code = UA <=1.0 mg/dL 0.1-1.0 Urobilinogen) [facility] AND [id number] 15:40:00 Test Item Value Reference Range Interpretation Comments UA Turbidity (test code = Clear (02/10/23 10:40 UA Turbidity) AM) [facility] AND [id number] 15:40:00 Test Item Value Reference Range Interpretation Comments UA Spec Grav (test code = UA Spec 1.020 1 Grav) [facility] AND [id number] 15:40:00 Test Item Value Reference Range Interpretation Comments UA pH (test code = UA pH) 5.0 1 5.0-8.0 [facility] [id number] 15:40:00 Test Item Value Reference Range Interpretation Comments UA Protein (test code = UA Negative mg/dL Protein) [facility] [id number] 15:40:00 Test Item Value Reference Range Interpretation Comments UA Glucose (test code = UA Negative mg/dL Glucose) [facility] [id number] 15:40:00 Test Item Value Reference Range Interpretation Comments UA Ketones (test code = UA Negative mg/dL Ketones) [facility] [id number] 15:40:00 Test Item Value Reference Range Interpretation Comments UA Bili (test code = Negative *NA*(02/10/23 UA Bili) 10:40 AM) [facility] AND [id number] 15:40:00 Test Item Value Reference Range Interpretation Comments UA Blood (test code = Small *ABN*(02/10/23 UA Blood) 10:40 AM) [facility] AND [id number] 15:40:00 Test Item Value Reference Range Interpretation Comments UA Nitrite (test code Negative (02/10/23 10:40 = UA Nitrite) AM) [facility] AND [id number] 15:40:00 Test Item Value Reference Range Interpretation Comments UA Leuk Est (test Negative (02/10/23 10:40 code = UA Leuk Est) AM) [facility] AND [id number] 15:40:00 Test Item Value Reference Range Interpretation Comments UA Ascorbic Acid (test Negative 2*NA*(02/10/23 code = UA Ascorbic 10:40 AM) Acid) [facility] AND [id number] 15:40:00 Test Item Value Reference Range Interpretation Comments UA Sq Epi (test code = UA Sq Occasional /LPF Epi) [facility] AND [id number] 15:40:00 Test Item Value Reference Range Interpretation Comments UA WBC (test code = 2 See_Comment [Automa jessie message] The UA WBC) system which ge nerated this result transmit jessie reference range : <=5. The reference range was not used to interpr et this result as mary l/abnormal. [facility] [id number] 15:40:00 Test Item Value Reference Range Interpretation Comments UA RBC (test code = 3 See_Comment [Automa jessie message] The UA RBC) system which ge nerated this result transmit jessie reference range : <=2. The reference range was not used to interpr et this result as mary l/abnormal. [facility] AND [id number] 15:40:00 Test Item Value Reference Range Interpretation Comments UA Color (test code = UA Color) Ltyellow [facility] AND [id number] 15:40:00 Test Item Value Reference Range Interpretation Comments UA Urobilinogen (test code = UA <=1.0 mg/dL 0.1-1.0 Urobilinogen) [facility] [id number] 15:40:00 Test Item Value Reference Range Interpretation Comments U Preg (test code = U Negative (02/10/23 10:40 Preg) AM) [facility] [id number] 15:40:00 Test Item Value Reference Range Interpretation Comments Glucose Lvl (test code = Glucose Lvl) 97 70-99 [facility] [id number] 15:40:00 Test Item Value Reference Range Interpretation Comments BUN (test code = BUN) 18 7-22 [facility] [id number] 15:40:00 Test Item Value Reference Range Interpretation Comments Creatinine Lvl (test code = Creatinine 0.60 0.50-1.40 Lvl) [facility] [id number] 15:40:00 Test Item Value Reference Range Interpretation Comments Sodium Lvl (test code = Sodium Lvl) 136 135-145 [facility] [id number] 15:40:00 Test Item Value Reference Range Interpretation Comments Potassium Lvl (test code = Potassium 3.6 3.5-5.1 Lvl) [facility] [id number] 15:40:00 Test Item Value Reference Range Interpretation Comments Chloride Lvl (test code = Chloride Lvl) 109 95-109 [facility] [id number] 15:40:00 Test Item Value Reference Range Interpretation Comments CO2 (test code = CO2) 24 24-32 [facility] [id number] 15:40:00 Test Item Value Reference Range Interpretation Comments Calcium Lvl (test code = Calcium Lvl) 9.4 8.5-10.5 [facility] [employer] [id number] 15:40:00 Test Item Value Reference Range Interpretation Comments Total Protein (test code = Total 7.6 6.4-8.4 Protein) [facility] [id number] 15:40:00 Test Item Value Reference Range Interpretation Comments Albumin Lvl (test code = Albumin Lvl) 3.7 3.5-5.0 [facility] [id number] 15:40:00 Test Item Value Reference Range Interpretation Comments ALT (test code = ALT) 46 See_Comment [Auto mated message] The system which ge nerated this result transmit jessie reference range : <=65. The reference range was not used to interpr et this result as mary l/abnormal. [facility] [employer] [id number] 15:40:00 Test Item Value Reference Range Interpretation Comments AST (test code = AST) 17 See_Comment [Auto mated message] The system which ge nerated this result transmit jessie reference range : <=37. The reference range was not used to interpr et this result as mary l/abnormal. [facility] [employer] [id number] 15:40:00 Test Item Value Reference Range Interpretation Comments Alk Phos (test code = Alk Phos) 77 39-136 [facility] [employer] [id number] 15:40:00 Test Item Value Reference Range Interpretation Comments Bili Total (test code = Bili Total) 0.3 0.2-1.3 [facility] [employer] [id number] 15:40:00 Test Item Value Reference Range Interpretation Comments AGAP (test code = AGAP) 6.6 10.0-20.0 [facility] [employer] [id number] 15:40:00 Test Item Value Reference Range Interpretation Comments B/C Ratio (test code = B/C Ratio) 30 1 6-25 [facility] [employer] [id number] 15:40:00 Test Item Value Reference Range Interpretation Comments Globulin (test code = Globulin) 3.9 2.7-4.2 [facility] [employer] [id number] 15:40:00 Test Item Value Reference Range Interpretation Comments A/G Ratio (test code = A/G Ratio) 0.9 1 0.7-1.6 [facility] [employer] [id number] 15:40:00 Test Item Value Reference Range Interpretation Comments eGFR (test code = eGFR) 125 [place] 907513-04-13 15:40:00 Test Item Value Reference Range Interpretation Comments Segs (test code = Segs) 62.0 45.0-75.0 [place] [address]-04-13 15:40:00 Test Item Value Reference Range Interpretation Comments Lymphocytes (test code = Lymphocytes) 28.3 20.0-40.0 [place] [address]-04-13 15:40:00 Test Item Value Reference Range Interpretation Comments Monocytes (test code = Monocytes) 6.9 2.0-12.0 [place] 907513-04-13 15:40:00 Test Item Value Reference Range Interpretation Comments Eosinophils (test code = 2.0 See_Comment [A utomated message] The Eosinophils) system which ge nerated this result tra nsmitted reference range : <=4.0. The reference r marleen was not used to int erpret this result as normal/abnormal . [place] [address]-04-13 15:40:00 Test Item Value Reference Range Interpretation Comments Basophils (test code = 0.8 See_Comment [Aut omated message] The Basophils) system which ge nerated this result tra nsmitted reference range : <=1.0. The reference r marleen was not used to int erpret this result as normal/abnormal . [place] 907513-04-13 15:40:00 Test Item Value Reference Range Interpretation Comments Neutrophils # (test code = Neutrophils 4.2 1.5-8.1 #) [place] [address]-04-13 15:40:00 Test Item Value Reference Range Interpretation Comments Lymphocytes # (test code = Lymphocytes 1.9 1.0-5.5 #) [place] [address]-04-13 15:40:00 Test Item Value Reference Range Interpretation Comments Monocytes # (test code 0.5 See_Comment [Aut omated message] The = Monocytes #) system which generated this result tra nsmitted reference range : <=0.8. The reference r marleen was not used to int erpret this result as normal/abnormal . [place] [address]-04-13 15:40:00 Test Item Value Reference Range Interpretation Comments Eosinophils # (test code 0.1 See_Comment [A utomated message] The = Eosinophils #) system whic h generated this result tra nsmitted reference range : <=0.5. The reference r marleen was not used to int erpret this result as normal/abnormal . [facility] CenterXwcokiqKLMFYCJIOR3754-13-85 15:40:00 Test Item Value Reference Range Interpretation Comments Basophils # (test code 0.1 See_Comment [Aut omated message] The = Basophils #) system which generated this result tra nsmitted reference range : <=0.2. The reference r marleen was not used to int erpret this result as normal/abnormal . [facility] CenterEbiaklnUNTBSCUQOM6851-80-98 15:40:00 Test Item Value Reference Range Interpretation Comments WBC (test code = WBC) 6.7 3.7-10.4 [facility] Cent[id number] 15:40:00 Test Item Value Reference Range Interpretation Comments RBC (test code = RBC) 4.36 4.20-5.40 [facility] CenterJveapqfJIOAUOODVE6796-01-07 15:40:00 Test Item Value Reference Range Interpretation Comments Hgb (test code = Hgb) 13.6 12.0-16.0 [facility] CenterMdhxwydTEJBJYXNPJ1480-37-01 15:40:00 Test Item Value Reference Range Interpretation Comments Hct (test code = Hct) 40.3 36.0-48.0 [facility] CenterKlynphyGKJTIMVSDU4745-01-20 15:40:00 Test Item Value Reference Range Interpretation Comments MCV (test code = MCV) 92.4 80.0-98.0 [facility] CenterSpgxarmUYPJKCCOSY1987-35-49 15:40:00 Test Item Value Reference Range Interpretation Comments MCH (test code = MCH) 31.1 pg 27.0-31.0 [facility] CenterVmmhalrLXJDNXQXFN2848-65-79 15:40:00 Test Item Value Reference Range Interpretation Comments MCHC (test code = MCHC) 33.6 32.0-36.0 [facility] CenterOixbhnaAQGNWZGZMZ6742-22-55 15:40:00 Test Item Value Reference Range Interpretation Comments RDW (test code = RDW) 13.2 11.5-14.5 [facility] CenterYmnvlroRQGJWCFITF1870-48-22 15:40:00 Test Item Value Reference Range Interpretation Comments Platelet (test code = Platelet) 401 133-450 [facility] RegionalEqotqplWGGUTZAKNN4837-64-81 15:40:00 Test Item Value Reference Range Interpretation Comments MPV (test code = MPV) 7.7 7.4-10.4 [facility] RegionalTcejlnoCFADWXIGEV1400-33-29 15:40:00 Test Item Value Reference Range Interpretation Comments PT (test code = PT) 13.0 s 12.0-14.7 [facility] RegionalIinycyxKGFBRIPBJN1564-32-28 15:40:00 Test Item Value Reference Range Interpretation Comments INR (test code = INR) 0.98 1 0.85-1.17 [facility]EpzszcjYVPRKHUWMV2419-71-95 15:40:00 Test Item Value Reference Range Interpretation Comments PTT (test code = PTT) 27.1 s 22.9-35.8 [facility] Hospit[id number] 15:40:00 Test Item Value Reference Range Interpretation Comments Eosinophils # (test code 0.1 See_Comment [A utomated message] The = Eosinophils #) system whic h generated this result tra nsmitted reference range : <=0.5. The reference r marleen was not used to int erpret this result as normal/abnormal . [facility] HospitalOkrsjzqAZPUHCCKRP0388-58-16 15:40:00 Test Item Value Reference Range Interpretation Comments Basophils # (test code 0.1 See_Comment [Aut omated message] The = Basophils #) system which generated this result tra nsmitted reference range : <=0.2. The reference r marleen was not used to int erpret this result as normal/abnormal . [facility] RegionalItcflhfHUKDXRRVJS5964-42-78 15:40:00 Test Item Value Reference Range Interpretation Comments PT (test code = PT) 13.0 s 12.0-14.7 [facility] RegionalVqybrndIZUEPFYUKJ7860-76-93 15:40:00 Test Item Value Reference Range Interpretation Comments INR (test code = INR) 0.98 1 0.85-1.17 [facility] HospitalYyhvvmwZTKVCNBHSC6017-51-39 15:40:00 Test Item Value Reference Range Interpretation Comments PTT (test code = PTT) 27.1 s 22.9-35.8 [facility] [id number] 15:40:00 Test Item Value Reference Range Interpretation Comments Coronavirus (COVID-19) Not Detected (02/10/23 KARLO (test code = 10:40 AM) Coronavirus (COVID-19) KARLO) [id number] 15:40:00 Test Item Value Reference Range Interpretation Comments Coronavirus (COVID-19) Not Detected (02/10/23 KARLO (test code = 10:40 AM) Coronavirus (COVID-19) KARLO) [facility] [id number] 15:40:00 Test Item Value Reference Range Interpretation Comments UA Turbidity (test code = Clear (02/10/23 10:40 UA Turbidity) AM) [facility] [id number] 15:40:00 Test Item Value Reference Range Interpretation Comments UA Spec Grav (test code = UA Spec 1.020 1 Grav) [facility] [id number] 15:40:00 Test Item Value Reference Range Interpretation Comments UA pH (test code = UA pH) 5.0 1 5.0-8.0 [facility] [id number] 15:40:00 Test Item Value Reference Range Interpretation Comments UA Protein (test code = UA Negative mg/dL Protein) [facility] [id number] 15:40:00 Test Item Value Reference Range Interpretation Comments UA Glucose (test code = UA Negative mg/dL Glucose) [facility] [id number] 15:40:00 Test Item Value Reference Range Interpretation Comments UA Ketones (test code = UA Negative mg/dL Ketones) [facility] [id number] 15:40:00 Test Item Value Reference Range Interpretation Comments UA Bili (test code = Negative *NA*(02/10/23 UA Bili) 10:40 AM) [facility] [id number] 15:40:00 Test Item Value Reference Range Interpretation Comments UA Blood (test code = Small *ABN*(02/10/23 UA Blood) 10:40 AM) [facility] [id number] 15:40:00 Test Item Value Reference Range Interpretation Comments UA Nitrite (test code Negative (02/10/23 10:40 = UA Nitrite) AM) [facility] [id number] 15:40:00 Test Item Value Reference Range Interpretation Comments UA Leuk Est (test Negative (02/10/23 10:40 code = UA Leuk Est) AM) [facility] [id number] 15:40:00 Test Item Value Reference Range Interpretation Comments UA Ascorbic Acid (test Negative 2*NA*(02/10/23 code = UA Ascorbic 10:40 AM) Acid) [facility] [id number] 15:40:00 Test Item Value Reference Range Interpretation Comments UA Sq Epi (test code = UA Sq Occasional /LPF Epi) [facility] [id number] 15:40:00 Test Item Value Reference Range Interpretation Comments UA WBC (test code = 2 See_Comment [Automa jessie message] The UA WBC) system which ge nerated this result transmit jessie reference range : <=5. The reference range was not used to interpr et this result as mary l/abnormal. [facility] [id number] 15:40:00 Test Item Value Reference Range Interpretation Comments UA RBC (test code = 3 See_Comment [Automa jessie message] The UA RBC) system which ge nerated this result transmit jessie reference range : <=2. The reference range was not used to interpr et this result as mary l/abnormal. [facility] [id number] 15:40:00 Test Item Value Reference Range Interpretation Comments UA Color (test code = UA Color) Ltyellow [facility] [id number] 15:40:00 Test Item Value Reference Range Interpretation Comments UA Urobilinogen (test code = UA <=1.0 mg/dL 0.1-1.0 Urobilinogen) [facility] [id number] 15:40:00 Test Item Value Reference Range Interpretation Comments UA Turbidity (test code = Clear (02/10/23 10:40 UA Turbidity) AM) [facility] [id number] 15:40:00 Test Item Value Reference Range Interpretation Comments UA Spec Grav (test code = UA Spec 1.020 1 Grav) [facility] [id number] 15:40:00 Test Item Value Reference Range Interpretation Comments UA pH (test code = UA pH) 5.0 1 5.0-8.0 [facility] [id number] 15:40:00 Test Item Value Reference Range Interpretation Comments UA Protein (test code = UA Negative mg/dL Protein) [facility] [id number] 15:40:00 Test Item Value Reference Range Interpretation Comments UA Glucose (test code = UA Negative mg/dL Glucose) [facility] [id number] 15:40:00 Test Item Value Reference Range Interpretation Comments UA Ketones (test code = UA Negative mg/dL Ketones) [facility] [id number] 15:40:00 Test Item Value Reference Range Interpretation Comments UA Bili (test code = Negative *NA*(02/10/23 UA Bili) 10:40 AM) [facility] AND [id number] 15:40:00 Test Item Value Reference Range Interpretation Comments UA Blood (test code = Small *ABN*(02/10/23 UA Blood) 10:40 AM) [facility] AND [id number] 15:40:00 Test Item Value Reference Range Interpretation Comments UA Nitrite (test code Negative (02/10/23 10:40 = UA Nitrite) AM) [facility] AND [id number] 15:40:00 Test Item Value Reference Range Interpretation Comments UA Leuk Est (test Negative (02/10/23 10:40 code = UA Leuk Est) AM) [facility] AND [id number] 15:40:00 Test Item Value Reference Range Interpretation Comments UA Ascorbic Acid (test Negative 2*NA*(02/10/23 code = UA Ascorbic 10:40 AM) Acid) [facility] AND [id number] 15:40:00 Test Item Value Reference Range Interpretation Comments UA Sq Epi (test code = UA Sq Occasional /LPF Epi) [facility] AND [id number] 15:40:00 Test Item Value Reference Range Interpretation Comments UA WBC (test code = 2 See_Comment [Automa jessie message] The UA WBC) system which ge nerated this result transmit jessie reference range : <=5. The reference range was not used to interpr et this result as mary l/abnormal. [facility] AND [id number] 15:40:00 Test Item Value Reference Range Interpretation Comments UA RBC (test code = 3 See_Comment [Automa jessie message] The UA RBC) system which ge nerated this result transmit jessie reference range : <=2. The reference range was not used to interpr et this result as mary l/abnormal. [facility] AND [id number] 15:40:00 Test Item Value Reference Range Interpretation Comments UA Color (test code = UA Color) Ltyellow [facility] AND [id number] 15:40:00 Test Item Value Reference Range Interpretation Comments UA Urobilinogen (test code = UA <=1.0 mg/dL 0.1-1.0 Urobilinogen) [facility] [id number] 15:40:00 Test Item Value Reference Range Interpretation Comments U Preg (test code = U Negative (02/10/23 10:40 Preg) AM) [facility] [id number] 15:40:00 Test Item Value Reference Range Interpretation Comments Glucose Lvl (test code = Glucose Lvl) 97 70-99 [facility]2023-04-13 15:40:00 Test Item Value Reference Range Interpretation Comments BUN (test code = BUN) 18 7-22 [facility]2023-04-13 15:40:00 Test Item Value Reference Range Interpretation Comments Creatinine Lvl (test code = Creatinine 0.60 0.50-1.40 Lvl) [facility]2023-04-13 15:40:00 Test Item Value Reference Range Interpretation Comments Sodium Lvl (test code = Sodium Lvl) 136 135-145 [facility]2023-04-13 15:40:00 Test Item Value Reference Range Interpretation Comments Potassium Lvl (test code = Potassium 3.6 3.5-5.1 Lvl) [facility]2023-04-13 15:40:00 Test Item Value Reference Range Interpretation Comments Chloride Lvl (test code = Chloride Lvl) 109 95-109 [facility]2023-04-13 15:40:00 Test Item Value Reference Range Interpretation Comments CO2 (test code = CO2) 24 24-32 [facility]2023-04-13 15:40:00 Test Item Value Reference Range Interpretation Comments Calcium Lvl (test code = Calcium Lvl) 9.4 8.5-10.5 [facility]2023-04-13 15:40:00 Test Item Value Reference Range Interpretation Comments Total Protein (test code = Total 7.6 6.4-8.4 Protein) [place] [address]-04-13 15:40:00 Test Item Value Reference Range Interpretation Comments Albumin Lvl (test code = Albumin Lvl) 3.7 3.5-5.0 [place] [address]-04-13 15:40:00 Test Item Value Reference Range Interpretation Comments ALT (test code = ALT) 46 See_Comment [Auto mated message] The system which ge nerated this result transmit jessie reference range : <=65. The reference range was not used to interpr et this result as mary l/abnormal. [place] [address]-04-13 15:40:00 Test Item Value Reference Range Interpretation Comments AST (test code = AST) 17 See_Comment [Auto mated message] The system which ge nerated this result transmit jessie reference range : <=37. The reference range was not used to interpr et this result as mary l/abnormal. [place] [address]-04-13 15:40:00 Test Item Value Reference Range Interpretation Comments Alk Phos (test code = Alk Phos) 77 39-136 [place] [address]-04-13 15:40:00 Test Item Value Reference Range Interpretation Comments Bili Total (test code = Bili Total) 0.3 0.2-1.3 [place] [address]-04-13 15:40:00 Test Item Value Reference Range Interpretation Comments AGAP (test code = AGAP) 6.6 10.0-20.0 [place] [address]-04-13 15:40:00 Test Item Value Reference Range Interpretation Comments B/C Ratio (test code = B/C Ratio) 30 1 6-25 [place] [address]-04-13 15:40:00 Test Item Value Reference Range Interpretation Comments Globulin (test code = Globulin) 3.9 2.7-4.2 [place] [address]-04-13 15:40:00 Test Item Value Reference Range Interpretation Comments A/G Ratio (test code = A/G Ratio) 0.9 1 0.7-1.6 [place] [address]-04-13 15:40:00 Test Item Value Reference Range Interpretation Comments eGFR (test code = eGFR) 125 [place] 907513-04-13 15:40:00 Test Item Value Reference Range Interpretation Comments Segs (test code = Segs) 62.0 45.0-75.0 [place] [address]-04-13 15:40:00 Test Item Value Reference Range Interpretation Comments Lymphocytes (test code = Lymphocytes) 28.3 20.0-40.0 [place] [address]-04-13 15:40:00 Test Item Value Reference Range Interpretation Comments Monocytes (test code = Monocytes) 6.9 2.0-12.0 [place] [address]-04-13 15:40:00 Test Item Value Reference Range Interpretation Comments Eosinophils (test code = 2.0 See_Comment [A utomated message] The Eosinophils) system which ge nerated this result tra nsmitted reference range : <=4.0. The reference r marleen was not used to int erpret this result as normal/abnormal . [place] [address]-04-13 15:40:00 Test Item Value Reference Range Interpretation Comments Basophils (test code = 0.8 See_Comment [Aut omated message] The Basophils) system which ge nerated this result tra nsmitted reference range : <=1.0. The reference r marleen was not used to int erpret this result as normal/abnormal . [place] [address]-04-13 15:40:00 Test Item Value Reference Range Interpretation Comments Neutrophils # (test code = Neutrophils 4.2 1.5-8.1 #) [place] [address]-04-13 15:40:00 Test Item Value Reference Range Interpretation Comments Lymphocytes # (test code = Lymphocytes 1.9 1.0-5.5 #) [place] [address]-04-13 15:40:00 Test Item Value Reference Range Interpretation Comments Monocytes # (test code 0.5 See_Comment [Aut omated message] The = Monocytes #) system which generated this result tra nsmitted reference range : <=0.8. The reference r marleen was not used to int erpret this result as normal/abnormal . [place] [address]-04-13 15:40:00 Test Item Value Reference Range Interpretation Comments Eosinophils # (test code 0.1 See_Comment [A utomated message] The = Eosinophils #) system whic h generated this result tra nsmitted reference range : <=0.5. The reference r marleen was not used to int erpret this result as normal/abnormal . [facility]cfaqacORRZYHBYYE8310-10-23 15:40:00 Test Item Value Reference Range Interpretation Comments Basophils # (test code 0.1 See_Comment [Aut omated message] The = Basophils #) system which generated this result tra nsmitted reference range : <=0.2. The reference r marleen was not used to int erpret this result as normal/abnormal . [facility] Region[id number] 15:40:00 Test Item Value Reference Range Interpretation Comments WBC (test code = WBC) 6.7 3.7-10.4 [facility] R[id number] 15:40:00 Test Item Value Reference Range Interpretation Comments RBC (test code = RBC) 4.36 4.20-5.40 [facility] R[id number] 15:40:00 Test Item Value Reference Range Interpretation Comments Hgb (test code = Hgb) 13.6 12.0-16.0 [facility] RegionalHwnsifwNLPESDDIIZ1368-25-05 15:40:00 Test Item Value Reference Range Interpretation Comments Hct (test code = Hct) 40.3 36.0-48.0 [facility] RegionalUxojlalUCZRTVYAWS3326-31-12 15:40:00 Test Item Value Reference Range Interpretation Comments MCV (test code = MCV) 92.4 80.0-98.0 [facility] RegionalCtefbrlDQWHUSQXRF8937-95-40 15:40:00 Test Item Value Reference Range Interpretation Comments MCH (test code = MCH) 31.1 pg 27.0-31.0 [facility] RegionalGvjwsezXDTKGLOJUC1869-21-76 15:40:00 Test Item Value Reference Range Interpretation Comments MCHC (test code = MCHC) 33.6 32.0-36.0 [facility] RegionalDbkphzaXBRGAKPGFM0459-03-62 15:40:00 Test Item Value Reference Range Interpretation Comments RDW (test code = RDW) 13.2 11.5-14.5 [facility] RegionalEckavylJNEEGPXMQW0146-15-31 15:40:00 Test Item Value Reference Range Interpretation Comments Platelet (test code = Platelet) 401 133-450 [facility] R[id number] 15:40:00 Test Item Value Reference Range Interpretation Comments MPV (test code = MPV) 7.7 7.4-10.4 [place] [address]-04-13 15:40:00 Test Item Value Reference Range Interpretation Comments PT (test code = PT) 13.0 s 12.0-14.7 [place] [address]-04-13 15:40:00 Test Item Value Reference Range Interpretation Comments INR (test code = INR) 0.98 1 0.85-1.17 [place] [address]-04-13 15:40:00 Test Item Value Reference Range Interpretation Comments PTT (test code = PTT) 27.1 s 22.9-35.8 [place] [address]-04-13 15:40:00 Test Item Value Reference Range Interpretation Comments Eosinophils # (test code 0.1 See_Comment [A utomated message] The = Eosinophils #) system whic h generated this result tra nsmitted reference range : <=0.5. The reference r marleen was not used to int erpret this result as normal/abnormal . [place] [address]-04-13 15:40:00 Test Item Value Reference Range Interpretation Comments Basophils # (test code 0.1 See_Comment [Aut omated message] The = Basophils #) system which generated this result tra nsmitted reference range : <=0.2. The reference r marleen was not used to int erpret this result as normal/abnormal . [facility] R[id number] 15:40:00 Test Item Value Reference Range Interpretation Comments PT (test code = PT) 13.0 s 12.0-14.7 [place] [address]-04-13 15:40:00 Test Item Value Reference Range Interpretation Comments INR (test code = INR) 0.98 1 0.85-1.17 [place] [address]-04-13 15:40:00 Test Item Value Reference Range Interpretation Comments PTT (test code = PTT) 27.1 s 22.9-35.8 [place] [address]-04-13 15:40:00 Test Item Value Reference Range Interpretation Comments Coronavirus (COVID-19) Not Detected (02/10/23 KARLO (test code = 10:40 AM) Coronavirus (COVID-19) KARLO) [place] [address]-04-13 15:40:00 Test Item Value Reference Range Interpretation Comments Coronavirus (COVID-19) Not Detected (02/10/23 KARLO (test code = 10:40 AM) Coronavirus (COVID-19) KARLO) [facility] AND [id number] 15:40:00 Test Item Value Reference Range Interpretation Comments UA Turbidity (test code = Clear (02/10/23 10:40 UA Turbidity) AM) [facility] AND [id number] 15:40:00 Test Item Value Reference Range Interpretation Comments UA Spec Grav (test code = UA Spec 1.020 1 Grav) [facility] AND [id number] 15:40:00 Test Item Value Reference Range Interpretation Comments UA pH (test code = UA pH) 5.0 1 5.0-8.0 [facility] AND [id number] 15:40:00 Test Item Value Reference Range Interpretation Comments UA Protein (test code = UA Negative mg/dL Protein) [facility] AND [id number] 15:40:00 Test Item Value Reference Range Interpretation Comments UA Glucose (test code = UA Negative mg/dL Glucose) [facility] AND [id number] 15:40:00 Test Item Value Reference Range Interpretation Comments UA Ketones (test code = UA Negative mg/dL Ketones) [facility] AND [id number] 15:40:00 Test Item Value Reference Range Interpretation Comments UA Bili (test code = Negative *NA*(02/10/23 UA Bili) 10:40 AM) [facility] AND [id number] 15:40:00 Test Item Value Reference Range Interpretation Comments UA Blood (test code = Small *ABN*(02/10/23 UA Blood) 10:40 AM) [facility] AND [id number] 15:40:00 Test Item Value Reference Range Interpretation Comments UA Nitrite (test code Negative (02/10/23 10:40 = UA Nitrite) AM) [facility] AND [id number] 15:40:00 Test Item Value Reference Range Interpretation Comments UA Leuk Est (test Negative (02/10/23 10:40 code = UA Leuk Est) AM) [facility] AND [id number] 15:40:00 Test Item Value Reference Range Interpretation Comments UA Ascorbic Acid (test Negative 2*NA*(02/10/23 code = UA Ascorbic 10:40 AM) Acid) [facility] AND [id number] 15:40:00 Test Item Value Reference Range Interpretation Comments UA Sq Epi (test code = UA Sq Occasional /LPF Epi) [facility] [id number] 15:40:00 Test Item Value Reference Range Interpretation Comments UA WBC (test code = 2 See_Comment [Automa jessie message] The UA WBC) system which ge nerated this result transmit jessie reference range : <=5. The reference range was not used to interpr et this result as mary l/abnormal. [facility] [id number] 15:40:00 Test Item Value Reference Range Interpretation Comments UA RBC (test code = 3 See_Comment [Automa jessie message] The UA RBC) system which ge nerated this result transmit jessie reference range : <=2. The reference range was not used to interpr et this result as mary l/abnormal. [facility] [id number] 15:40:00 Test Item Value Reference Range Interpretation Comments UA Color (test code = UA Color) Ltyellow [facility] [id number] 15:40:00 Test Item Value Reference Range Interpretation Comments UA Urobilinogen (test code = UA <=1.0 mg/dL 0.1-1.0 Urobilinogen) [facility] [id number] 15:40:00 Test Item Value Reference Range Interpretation Comments UA Turbidity (test code = Clear (02/10/23 10:40 UA Turbidity) AM) [facility] [id number] 15:40:00 Test Item Value Reference Range Interpretation Comments UA Spec Grav (test code = UA Spec 1.020 1 Grav) [facility] [id number] 15:40:00 Test Item Value Reference Range Interpretation Comments UA pH (test code = UA pH) 5.0 1 5.0-8.0 [facility] [id number] 15:40:00 Test Item Value Reference Range Interpretation Comments UA Protein (test code = UA Negative mg/dL Protein) [facility] [place] AND [id number] 15:40:00 Test Item Value Reference Range Interpretation Comments UA Glucose (test code = UA Negative mg/dL Glucose) [facility] [id number] 15:40:00 Test Item Value Reference Range Interpretation Comments UA Ketones (test code = UA Negative mg/dL Ketones) [facility] [id number] 15:40:00 Test Item Value Reference Range Interpretation Comments UA Bili (test code = Negative *NA*(02/10/23 UA Bili) 10:40 AM) [facility] AND [id number] 15:40:00 Test Item Value Reference Range Interpretation Comments UA Blood (test code = Small *ABN*(02/10/23 UA Blood) 10:40 AM) [facility] AND [id number] 15:40:00 Test Item Value Reference Range Interpretation Comments UA Nitrite (test code Negative (02/10/23 10:40 = UA Nitrite) AM) [facility] AND [id number] 15:40:00 Test Item Value Reference Range Interpretation Comments UA Leuk Est (test Negative (02/10/23 10:40 code = UA Leuk Est) AM) [facility] AND [id number] 15:40:00 Test Item Value Reference Range Interpretation Comments UA Ascorbic Acid (test Negative 2*NA*(02/10/23 code = UA Ascorbic 10:40 AM) Acid) [facility] [place] AND [id number] 15:40:00 Test Item Value Reference Range Interpretation Comments UA Sq Epi (test code = UA Sq Occasional /LPF Epi) [facility] AND [id number] 15:40:00 Test Item Value Reference Range Interpretation Comments UA WBC (test code = 2 See_Comment [Automa jessie message] The UA WBC) system which ge nerated this result transmit jessie reference range : <=5. The reference range was not used to interpr et this result as mary l/abnormal. [facility] AND [id number] 15:40:00 Test Item Value Reference Range Interpretation Comments UA RBC (test code = 3 See_Comment [Automa jessie message] The UA RBC) system which ge nerated this result transmit jessie reference range : <=2. The reference range was not used to interpr et this result as mary l/abnormal. [facility] AND [id number] 15:40:00 Test Item Value Reference Range Interpretation Comments UA Color (test code = UA Color) Ltyellow [facility] AND [id number] 15:40:00 Test Item Value Reference Range Interpretation Comments UA Urobilinogen (test code = UA <=1.0 mg/dL 0.1-1.0 Urobilinogen) [facility] [id number] 15:40:00 Test Item Value Reference Range Interpretation Comments U Preg (test code = U Negative (02/10/23 10:40 Preg) AM) [facility]2023-04-13 15:40:00 Test Item Value Reference Range Interpretation Comments Glucose Lvl (test code = Glucose Lvl) 97 70-99 [facility]2023-04-13 15:40:00 Test Item Value Reference Range Interpretation Comments BUN (test code = BUN) 18 7-22 [facility]2023-04-13 15:40:00 Test Item Value Reference Range Interpretation Comments Creatinine Lvl (test code = Creatinine 0.60 0.50-1.40 Lvl) [facility]2023-04-13 15:40:00 Test Item Value Reference Range Interpretation Comments Sodium Lvl (test code = Sodium Lvl) 136 135-145 [facility]2023-04-13 15:40:00 Test Item Value Reference Range Interpretation Comments Potassium Lvl (test code = Potassium 3.6 3.5-5.1 Lvl) [facility]2023-04-13 15:40:00 Test Item Value Reference Range Interpretation Comments Chloride Lvl (test code = Chloride Lvl) 109 95-109 [facility]2023-04-13 15:40:00 Test Item Value Reference Range Interpretation Comments CO2 (test code = CO2) 24 24-32 [facility] [facility] 15:40:00 Test Item Value Reference Range Interpretation Comments Calcium Lvl (test code = Calcium Lvl) 9.4 8.5-10.5 [facility]2023-04-13 15:40:00 Test Item Value Reference Range Interpretation Comments Total Protein (test code = Total 7.6 6.4-8.4 Protein) [facility]2023-04-13 15:40:00 Test Item Value Reference Range Interpretation Comments Albumin Lvl (test code = Albumin Lvl) 3.7 3.5-5.0 [facility] [employer] [id number] 15:40:00 Test Item Value Reference Range Interpretation Comments ALT (test code = ALT) 46 See_Comment [Auto mated message] The system which ge nerated this result transmit jessie reference range : <=65. The reference range was not used to interpr et this result as mary l/abnormal. [facility] [employer] [id number] 15:40:00 Test Item Value Reference Range Interpretation Comments AST (test code = AST) 17 See_Comment [Auto mated message] The system which ge nerated this result transmit jessie reference range : <=37. The reference range was not used to interpr et this result as mary l/abnormal. [employer] [id number] 15:40:00 Test Item Value Reference Range Interpretation Comments Alk Phos (test code = Alk Phos) 77 39-136 [facility] [employer] [id number] 15:40:00 Test Item Value Reference Range Interpretation Comments Bili Total (test code = Bili Total) 0.3 0.2-1.3 [facility] [employer] [id number] 15:40:00 Test Item Value Reference Range Interpretation Comments AGAP (test code = AGAP) 6.6 10.0-20.0 [facility] [employer] [id number] 15:40:00 Test Item Value Reference Range Interpretation Comments B/C Ratio (test code = B/C Ratio) 30 1 6-25 [facility] [employer] [id number] 15:40:00 Test Item Value Reference Range Interpretation Comments Globulin (test code = Globulin) 3.9 2.7-4.2 [facility] [employer]2023-04-13 15:40:00 Test Item Value Reference Range Interpretation Comments A/G Ratio (test code = A/G Ratio) 0.9 1 0.7-1.6 [facility] [employer]2023-04-13 15:40:00 Test Item Value Reference Range Interpretation Comments eGFR (test code = eGFR) 125 [facility] SmxfrloLKZTUPWDNU9782-16-25 15:40:00 Test Item Value Reference Range Interpretation Comments Segs (test code = Segs) 62.0 45.0-75.0 [facility] KzcuuosKTESCEEVUB5841-03-07 15:40:00 Test Item Value Reference Range Interpretation Comments Lymphocytes (test code = Lymphocytes) 28.3 20.0-40.0 [facility]MmfiqcjLLJYRKZFZZ3017-60-23 15:40:00 Test Item Value Reference Range Interpretation Comments Monocytes (test code = Monocytes) 6.9 2.0-12.0 [place] 907513-04-13 15:40:00 Test Item Value Reference Range Interpretation Comments Eosinophils (test code = 2.0 See_Comment [A utomated message] The Eosinophils) system which ge nerated this result tra nsmitted reference range : <=4.0. The reference r marleen was not used to int erpret this result as normal/abnormal . [facility]DefctsoUZQAMNISK6832-63-86 20:51:00 Test Item Value Reference Range Interpretation Comments Glucose Lvl (test code = Glucose Lvl) 118 70-99 [facility] CenterHowxrlvZFILECBHB8722-28-18 20:51:00 Test Item Value Reference Range Interpretation Comments BUN (test code = BUN) 15 7-22 [facility] CenterVqehzbwOBKUBFIPG4935-04-62 20:51:00 Test Item Value Reference Range Interpretation Comments Creatinine Lvl (test code = Creatinine 0.66 0.50-1.40 Lvl) [facility] CenterAipkvhoMFRUQZGDG8790-89-64 20:51:00 Test Item Value Reference Range Interpretation Comments Sodium Lvl (test code = Sodium Lvl) 139 135-145 [facility] CenterSvrcolvYYOTFMRUH5341-01-83 20:51:00 Test Item Value Reference Range Interpretation Comments Potassium Lvl (test code = Potassium 3.8 3.5-5.1 Lvl) [facility] CenterGektmblEIZJARRUI5292-08-52 20:51:00 Test Item Value Reference Range Interpretation Comments Chloride Lvl (test code = Chloride Lvl) 106 95-109 [facility] CenterQwlfzthKYCGRVZGL5662-49-91 20:51:00 Test Item Value Reference Range Interpretation Comments CO2 (test code = CO2) 26 24-32 [facility] CenterEjzxcgwCNFQHYFRX4785-24-56 20:51:00 Test Item Value Reference Range Interpretation Comments Calcium Lvl (test code = Calcium Lvl) 8.9 8.5-10.5 [facility] CenterUzroggbPEFUHIUKU0423-24-61 20:51:00 Test Item Value Reference Range Interpretation Comments AGAP (test code = AGAP) 10.8 10.0-20.0 [place] [address]-01-17 20:51:00 Test Item Value Reference Range Interpretation Comments eGFR (test code = eGFR) 122 [place] [address]-01-17 20:51:00 Test Item Value Reference Range Interpretation Comments S Preg (test code = S Negative *NA*(11/16/22 Preg) 2:51 PM) [place] [address]-01-17 20:51:00 Test Item Value Reference Range Interpretation Comments Segs (test code = Segs) 62.0 45.0-75.0 [place] 907513-01-17 20:51:00 Test Item Value Reference Range Interpretation Comments Lymphocytes (test code = Lymphocytes) 27.6 20.0-40.0 [place] [address]-01-17 20:51:00 Test Item Value Reference Range Interpretation Comments Monocytes (test code = Monocytes) 7.5 2.0-12.0 [place] 907513-01-17 20:51:00 Test Item Value Reference Range Interpretation Comments Eosinophils (test code = 1.9 See_Comment [A utomated message] The Eosinophils) system which ge nerated this result tra nsmitted reference range : <=4.0. The reference r marleen was not used to int erpret this result as normal/abnormal . [place] [address]-01-17 20:51:00 Test Item Value Reference Range Interpretation Comments Basophils (test code = 1.0 See_Comment [Aut omated message] The Basophils) system which ge nerated this result tra nsmitted reference range : <=1.0. The reference r marleen was not used to int erpret this result as normal/abnormal . [facility] RegionalMnkmnazYHLORDQNNP1008-95-50 20:51:00 Test Item Value Reference Range Interpretation Comments Neutrophils # (test code = Neutrophils 4.6 1.5-8.1 #) [place] [address]-01-17 20:51:00 Test Item Value Reference Range Interpretation Comments Lymphocytes # (test code = Lymphocytes 2.1 1.0-5.5 #) [place] 907513-01-17 20:51:00 Test Item Value Reference Range Interpretation Comments Monocytes # (test code 0.6 See_Comment [Aut omated message] The = Monocytes #) system which generated this result tra nsmitted reference range : <=0.8. The reference r marleen was not used to int erpret this result as normal/abnormal . [facility] RegionalOjvjhvdFYDPUKGBQV2301-39-55 20:51:00 Test Item Value Reference Range Interpretation Comments Eosinophils # (test code 0.1 See_Comment [A utomated message] The = Eosinophils #) system whic h generated this result tra nsmitted reference range : <=0.5. The reference r marleen was not used to int erpret this result as normal/abnormal . [facility] RegionalZnvbketCZBWWEDCSL3115-65-97 20:51:00 Test Item Value Reference Range Interpretation Comments Basophils # (test code 0.1 See_Comment [Aut omated message] The = Basophils #) system which generated this result tra nsmitted reference range : <=0.2. The reference r marleen was not used to int erpret this result as normal/abnormal . [facility] RegionalDsgjssmGIZSPOQFJP4677-13-45 20:51:00 Test Item Value Reference Range Interpretation Comments WBC (test code = WBC) 7.5 3.7-10.4 [facility] RegionalOpfxyhfZIZBQMPXCW7033-62-85 20:51:00 Test Item Value Reference Range Interpretation Comments RBC (test code = RBC) 4.24 4.20-5.40 [facility] RegionalUerupgmZFBSRIKBYC6340-71-47 20:51:00 Test Item Value Reference Range Interpretation Comments Hgb (test code = Hgb) 13.4 12.0-16.0 [facility] RegionalOazguwwMKYVOMSRKQ1325-41-25 20:51:00 Test Item Value Reference Range Interpretation Comments Hct (test code = Hct) 39.8 36.0-48.0 [place] 907513-01-17 20:51:00 Test Item Value Reference Range Interpretation Comments MCV (test code = MCV) 93.9 80.0-98.0 [place] 907513-01-17 20:51:00 Test Item Value Reference Range Interpretation Comments MCH (test code = MCH) 31.6 pg 27.0-31.0 [place] 907513-01-17 20:51:00 Test Item Value Reference Range Interpretation Comments MCHC (test code = MCHC) 33.7 32.0-36.0 [place] 907513-01-17 20:51:00 Test Item Value Reference Range Interpretation Comments RDW (test code = RDW) 13.1 11.5-14.5 [facility] RegionalVvuseheYPLRDUROLQ8233-15-23 20:51:00 Test Item Value Reference Range Interpretation Comments Platelet (test code = Platelet) 374 133-450 [place] 907513-01-17 20:51:00 Test Item Value Reference Range Interpretation Comments MPV (test code = MPV) 7.9 7.4-10.4 [place] 691863-01-17 20:51:00 Test Item Value Reference Range Interpretation Comments Glucose Lvl (test code = Glucose Lvl) 118 70-99 [place] 691863-01-17 20:51:00 Test Item Value Reference Range Interpretation Comments BUN (test code = BUN) 15 7-22 [place] 691863-01-17 20:51:00 Test Item Value Reference Range Interpretation Comments Creatinine Lvl (test code = Creatinine 0.66 0.50-1.40 Lvl) [facility] CenterWcshzksXBRTEXBKM9573-93-10 20:51:00 Test Item Value Reference Range Interpretation Comments Sodium Lvl (test code = Sodium Lvl) 139 135-145 [facility] CenterIufaxogOJBNSJBGW6985-23-99 20:51:00 Test Item Value Reference Range Interpretation Comments Potassium Lvl (test code = Potassium 3.8 3.5-5.1 Lvl) [facility] CenterDqyknwpQBGMUVART1024-16-56 20:51:00 Test Item Value Reference Range Interpretation Comments Chloride Lvl (test code = Chloride Lvl) 106 95-109 [facility] CenterQpvuljuHTVPCWQXI1944-93-33 20:51:00 Test Item Value Reference Range Interpretation Comments CO2 (test code = CO2) 26 24-32 [facility] CenterAcrvnpjPAHPBQFNC7056-69-13 20:51:00 Test Item Value Reference Range Interpretation Comments Calcium Lvl (test code = Calcium Lvl) 8.9 8.5-10.5 [facility] CenterXlcnsjzXJGZDQQWI0273-11-41 20:51:00 Test Item Value Reference Range Interpretation Comments AGAP (test code = AGAP) 10.8 10.0-20.0 [facility] CenterNrweoreOMESMTQAL8009-30-33 20:51:00 Test Item Value Reference Range Interpretation Comments eGFR (test code = eGFR) 122 [facility] CenterMlurwjhKURXCSSYX6442-17-46 20:51:00 Test Item Value Reference Range Interpretation Comments S Preg (test code = S Negative *NA*(11/16/22 Preg) 2:51 PM) [place] 907513-01-17 20:51:00 Test Item Value Reference Range Interpretation Comments Segs (test code = Segs) 62.0 45.0-75.0 [place] 907513-01-17 20:51:00 Test Item Value Reference Range Interpretation Comments Lymphocytes (test code = Lymphocytes) 27.6 20.0-40.0 [place] 907513-01-17 20:51:00 Test Item Value Reference Range Interpretation Comments Monocytes (test code = Monocytes) 7.5 2.0-12.0 [place] 907513-01-17 20:51:00 Test Item Value Reference Range Interpretation Comments Eosinophils (test code = 1.9 See_Comment [A utomated message] The Eosinophils) system which ge nerated this result tra nsmitted reference range : <=4.0. The reference r marleen was not used to int erpret this result as normal/abnormal . [place] 907513-01-17 20:51:00 Test Item Value Reference Range Interpretation Comments Basophils (test code = 1.0 See_Comment [Aut omated message] The Basophils) system which ge nerated this result tra nsmitted reference range : <=1.0. The reference r marleen was not used to int erpret this result as normal/abnormal . [facility] RegionalWkiholiEWMRACDCNX6090-85-59 20:51:00 Test Item Value Reference Range Interpretation Comments Neutrophils # (test code = Neutrophils 4.6 1.5-8.1 #) [place] 907513-01-17 20:51:00 Test Item Value Reference Range Interpretation Comments Lymphocytes # (test code = Lymphocytes 2.1 1.0-5.5 #) [place] [address]-01-17 20:51:00 Test Item Value Reference Range Interpretation Comments Monocytes # (test code 0.6 See_Comment [Aut omated message] The = Monocytes #) system which generated this result tra nsmitted reference range : <=0.8. The reference r marleen was not used to int erpret this result as normal/abnormal . [place] 907513-01-17 20:51:00 Test Item Value Reference Range Interpretation Comments Eosinophils # (test code 0.1 See_Comment [A utomated message] The = Eosinophils #) system whic h generated this result tra nsmitted reference range : <=0.5. The reference r marleen was not used to int erpret this result as normal/abnormal . [facility] RegionalUsxudjfWPVJQPCRJJ4118-07-87 20:51:00 Test Item Value Reference Range Interpretation Comments Basophils # (test code 0.1 See_Comment [Aut omated message] The = Basophils #) system which generated this result tra nsmitted reference range : <=0.2. The reference r marleen was not used to int erpret this result as normal/abnormal . [facility] RegionalWvcvpmrQSQIVRVIEX7814-43-20 20:51:00 Test Item Value Reference Range Interpretation Comments WBC (test code = WBC) 7.5 3.7-10.4 [facility] RegionalCaablwuZSURVNYNHH1376-25-16 20:51:00 Test Item Value Reference Range Interpretation Comments RBC (test code = RBC) 4.24 4.20-5.40 [facility] RegionalSoidaczKPFFSAQAWH1492-29-46 20:51:00 Test Item Value Reference Range Interpretation Comments Hgb (test code = Hgb) 13.4 12.0-16.0 [facility] RegionalZvhcffrQTWVPXKVOQ2322-35-77 20:51:00 Test Item Value Reference Range Interpretation Comments Hct (test code = Hct) 39.8 36.0-48.0 [facility] RegionalUxwasdzIAYWFYRSZO0113-95-63 20:51:00 Test Item Value Reference Range Interpretation Comments MCV (test code = MCV) 93.9 80.0-98.0 [facility] RegionalGggfzjkMXBEKPZQVD2701-03-67 20:51:00 Test Item Value Reference Range Interpretation Comments MCH (test code = MCH) 31.6 pg 27.0-31.0 [facility] RegionalJyerzsqRWZDNCRZRB9098-63-12 20:51:00 Test Item Value Reference Range Interpretation Comments MCHC (test code = MCHC) 33.7 32.0-36.0 [facility] RegionalKzebnghWKLFXCUXJU0347-75-74 20:51:00 Test Item Value Reference Range Interpretation Comments RDW (test code = RDW) 13.1 11.5-14.5 [facility] RegionalWzqytwqOIKMPQAFON4094-06-67 20:51:00 Test Item Value Reference Range Interpretation Comments Platelet (test code = Platelet) 374 133-450 [facility] RegionalFovledlXQJUZDLTGZ0060-34-08 20:51:00 Test Item Value Reference Range Interpretation Comments MPV (test code = MPV) 7.9 7.4-10.4 [place] 691863-01-17 20:51:00 Test Item Value Reference Range Interpretation Comments Glucose Lvl (test code = Glucose Lvl) 118 70-99 [place] 691863-01-17 20:51:00 Test Item Value Reference Range Interpretation Comments BUN (test code = BUN) 15 7-22 [place] 691863-01-17 20:51:00 Test Item Value Reference Range Interpretation Comments Creatinine Lvl (test code = Creatinine 0.66 0.50-1.40 Lvl) [facility] CenterVtknrhnEPMTZNDKQ1649-58-90 20:51:00 Test Item Value Reference Range Interpretation Comments Sodium Lvl (test code = Sodium Lvl) 139 135-145 [place] 691863-01-17 20:51:00 Test Item Value Reference Range Interpretation Comments Potassium Lvl (test code = Potassium 3.8 3.5-5.1 Lvl) [facility] CenterKylirkoHGHQQWGQK2169-17-46 20:51:00 Test Item Value Reference Range Interpretation Comments Chloride Lvl (test code = Chloride Lvl) 106 95-109 [facility] CenterOadxsvjKNUYGPMEG9065-32-81 20:51:00 Test Item Value Reference Range Interpretation Comments CO2 (test code = CO2) 26 24-32 [facility] CenterByslwgnCRTRODBOJ5276-97-77 20:51:00 Test Item Value Reference Range Interpretation Comments Calcium Lvl (test code = Calcium Lvl) 8.9 8.5-10.5 [facility] CenterLwhveqwFBJBEEIQZ1945-46-58 20:51:00 Test Item Value Reference Range Interpretation Comments AGAP (test code = AGAP) 10.8 10.0-20.0 [place] 691863-01-17 20:51:00 Test Item Value Reference Range Interpretation Comments eGFR (test code = eGFR) 122 [facility] CenterIcznqflVYLSFKXEI1300-09-93 20:51:00 Test Item Value Reference Range Interpretation Comments S Preg (test code = S Negative *NA*(11/16/22 Preg) 2:51 PM) [facility] RegionalVzaahucLXKXXCZCWA9291-75-43 20:51:00 Test Item Value Reference Range Interpretation Comments Segs (test code = Segs) 62.0 45.0-75.0 [place] [address]-01-17 20:51:00 Test Item Value Reference Range Interpretation Comments Lymphocytes (test code = Lymphocytes) 27.6 20.0-40.0 [place] [address]-01-17 20:51:00 Test Item Value Reference Range Interpretation Comments Monocytes (test code = Monocytes) 7.5 2.0-12.0 [place] [address]-01-17 20:51:00 Test Item Value Reference Range Interpretation Comments Eosinophils (test code = 1.9 See_Comment [A utomated message] The Eosinophils) system which ge nerated this result tra nsmitted reference range : <=4.0. The reference r marleen was not used to int erpret this result as normal/abnormal . [place] [address]-01-17 20:51:00 Test Item Value Reference Range Interpretation Comments Basophils (test code = 1.0 See_Comment [Aut omated message] The Basophils) system which ge nerated this result tra nsmitted reference range : <=1.0. The reference r marleen was not used to int erpret this result as normal/abnormal . [place] 907513-01-17 20:51:00 Test Item Value Reference Range Interpretation Comments Neutrophils # (test code = Neutrophils 4.6 1.5-8.1 #) [place] [address]-01-17 20:51:00 Test Item Value Reference Range Interpretation Comments Lymphocytes # (test code = Lymphocytes 2.1 1.0-5.5 #) [place] [address]-01-17 20:51:00 Test Item Value Reference Range Interpretation Comments Monocytes # (test code 0.6 See_Comment [Aut omated message] The = Monocytes #) system which generated this result tra nsmitted reference range : <=0.8. The reference r marleen was not used to int erpret this result as normal/abnormal . [place] 907513-01-17 20:51:00 Test Item Value Reference Range Interpretation Comments Eosinophils # (test code 0.1 See_Comment [A utomated message] The = Eosinophils #) [facility] generated this result tra nsmitted reference range : <=0.5. The reference r mraleen was not used to int erpret this result as normal/abnormal . [facility] RegionalEpdyccwMLWXPLFCPZ7989-99-09 20:51:00 Test Item Value Reference Range Interpretation Comments Basophils # (test code 0.1 See_Comment [Aut omated message] The = Basophils #) system which generated this result tra nsmitted reference range : <=0.2. The reference r marleen was not used to int erpret this result as normal/abnormal . [facility] RegionalAanrpvjKYWWJKHDDQ3626-86-77 20:51:00 Test Item Value Reference Range Interpretation Comments WBC (test code = WBC) 7.5 3.7-10.4 [place] 907513-01-17 20:51:00 Test Item Value Reference Range Interpretation Comments RBC (test code = RBC) 4.24 4.20-5.40 [place] 907513-01-17 20:51:00 Test Item Value Reference Range Interpretation Comments Hgb (test code = Hgb) 13.4 12.0-16.0 [place] 907513-01-17 20:51:00 Test Item Value Reference Range Interpretation Comments Hct (test code = Hct) 39.8 36.0-48.0 [place] 907513-01-17 20:51:00 Test Item Value Reference Range Interpretation Comments MCV (test code = MCV) 93.9 80.0-98.0 [place] 907513-01-17 20:51:00 Test Item Value Reference Range Interpretation Comments MCH (test code = MCH) 31.6 pg 27.0-31.0 [place] 907513-01-17 20:51:00 Test Item Value Reference Range Interpretation Comments MCHC (test code = MCHC) 33.7 32.0-36.0 [place] 907513-01-17 20:51:00 Test Item Value Reference Range Interpretation Comments RDW (test code = RDW) 13.1 11.5-14.5 [place] 907513-01-17 20:51:00 Test Item Value Reference Range Interpretation Comments Platelet (test code = Platelet) 374 133-450 [facility] RegionalHxppwsqLHZLFWRGOM1874-22-57 20:51:00 Test Item Value Reference Range Interpretation Comments MPV (test code = MPV) 7.9 7.4-10.4 [place] [address]-01-17 20:51:00 Test Item Value Reference Range Interpretation Comments Glucose Lvl (test code = Glucose Lvl) 118 70-99 [place] 691863-01-17 20:51:00 Test Item Value Reference Range Interpretation Comments BUN (test code = BUN) 15 7-22 [place] 691863-01-17 20:51:00 Test Item Value Reference Range Interpretation Comments Creatinine Lvl (test code = Creatinine 0.66 0.50-1.40 Lvl) [facility] CenterHxdluaqDLTLGZIXP8456-82-02 20:51:00 Test Item Value Reference Range Interpretation Comments Sodium Lvl (test code = Sodium Lvl) 139 135-145 [place] 691863-01-17 20:51:00 Test Item Value Reference Range Interpretation Comments Potassium Lvl (test code = Potassium 3.8 3.5-5.1 Lvl) [facility] CenterGhbgfewZCGQASZRR5115-88-99 20:51:00 Test Item Value Reference Range Interpretation Comments Chloride Lvl (test code = Chloride Lvl) 106 95-109 [facility] CenterGsdorqrOFYZARBPF3292-08-43 20:51:00 Test Item Value Reference Range Interpretation Comments CO2 (test code = CO2) 26 24-32 [facility] CenterNdolxnfGSPAIMBGS2893-95-51 20:51:00 Test Item Value Reference Range Interpretation Comments Calcium Lvl (test code = Calcium Lvl) 8.9 8.5-10.5 [facility] CenterFbndebsCLPHIASQA9445-63-79 20:51:00 Test Item Value Reference Range Interpretation Comments AGAP (test code = AGAP) 10.8 10.0-20.0 [facility] CenterVfrodejZYMKLHYLX7692-36-27 20:51:00 Test Item Value Reference Range Interpretation Comments eGFR (test code = eGFR) 122 [facility] CenterAcrnzfbSTYMUWKDM3550-64-55 20:51:00 Test Item Value Reference Range Interpretation Comments S Preg (test code = S Negative *NA*(11/16/22 Preg) 2:51 PM) [facility] RegionalYmorwrcOQBGHYJREO3371-58-54 20:51:00 Test Item Value Reference Range Interpretation Comments Segs (test code = Segs) 62.0 45.0-75.0 [facility] RegionalXouqkelKDPMYYVIPO4863-10-50 20:51:00 Test Item Value Reference Range Interpretation Comments Lymphocytes (test code = Lymphocytes) 27.6 20.0-40.0 [place] 907513-01-17 20:51:00 Test Item Value Reference Range Interpretation Comments Monocytes (test code = Monocytes) 7.5 2.0-12.0 [place] 907513-01-17 20:51:00 Test Item Value Reference Range Interpretation Comments Eosinophils (test code = 1.9 See_Comment [A utomated message] The Eosinophils) system which ge nerated this result tra nsmitted reference range : <=4.0. The reference r marleen was not used to int erpret this result as normal/abnormal . [place] 907513-01-17 20:51:00 Test Item Value Reference Range Interpretation Comments Basophils (test code = 1.0 See_Comment [Aut omated message] The Basophils) system which ge nerated this result tra nsmitted reference range : <=1.0. The reference r marleen was not used to int erpret this result as normal/abnormal . [place] 907513-01-17 20:51:00 Test Item Value Reference Range Interpretation Comments Neutrophils # (test code = Neutrophils 4.6 1.5-8.1 #) [facility] RegionalWjoknfbJXHLSVSLPY9633-17-34 20:51:00 Test Item Value Reference Range Interpretation Comments Lymphocytes # (test code = Lymphocytes 2.1 1.0-5.5 #) [place] 907513-01-17 20:51:00 Test Item Value Reference Range Interpretation Comments Monocytes # (test code 0.6 See_Comment [Aut omated message] The = Monocytes #) system which generated this result tra nsmitted reference range : <=0.8. The reference r marleen was not used to int erpret this result as normal/abnormal . [id number] 20:51:00 Test Item Value Reference Range Interpretation Comments Eosinophils # (test code 0.1 See_Comment [A utomated message] The = Eosinophils #) system whic h generated this result tra nsmitted reference range : <=0.5. The reference r marleen was not used to int erpret this result as normal/abnormal . [facility] Reg[id number] 20:51:00 Test Item Value Reference Range Interpretation Comments Basophils # (test code 0.1 See_Comment [Aut omated message] The = Basophils #) system which generated this result tra nsmitted reference range : <=0.2. The reference r marleen was not used to int erpret this result as normal/abnormal . [facility] RegionalWhtzyonRBMMYLUKNH5114-62-35 20:51:00 Test Item Value Reference Range Interpretation Comments WBC (test code = WBC) 7.5 3.7-10.4 [facility] HospitalHcpskxhBGUKGGTEEX0311-54-72 20:51:00 Test Item Value Reference Range Interpretation Comments RBC (test code = RBC) 4.24 4.20-5.40 [facility] HospitalDiksxyaPINHRKICEA7721-28-28 20:51:00 Test Item Value Reference Range Interpretation Comments Hgb (test code = Hgb) 13.4 12.0-16.0 [facility] HospitalXcdbeshXUJLFGJOFW3572-15-91 20:51:00 Test Item Value Reference Range Interpretation Comments Hct (test code = Hct) 39.8 36.0-48.0 [facility] RegionalWrwfvyqOOELXDZETP3127-82-39 20:51:00 Test Item Value Reference Range Interpretation Comments MCV (test code = MCV) 93.9 80.0-98.0 [facility] HospitalQabiweyYYQFAJDXTW7120-06-22 20:51:00 Test Item Value Reference Range Interpretation Comments MCH (test code = MCH) 31.6 pg 27.0-31.0 [facility] HospitalSvimzzaJXXSWXCQKF7789-43-92 20:51:00 Test Item Value Reference Range Interpretation Comments MCHC (test code = MCHC) 33.7 32.0-36.0 [facility] HospitalGbslavgBFKBPHPLRA9507-37-69 20:51:00 Test Item Value Reference Range Interpretation Comments RDW (test code = RDW) 13.1 11.5-14.5 [facility] HospitalPklzhqrMCRCMEWZRB9543-41-57 20:51:00 Test Item Value Reference Range Interpretation Comments Platelet (test code = Platelet) 374 133-450 [facility] HospitalAjvttmiQKSTLRSTSG5616-61-07 20:51:00 Test Item Value Reference Range Interpretation Comments MPV (test code = MPV) 7.9 7.4-10.4 [facility] RFLX MICR CULT IF [id number] 19:59:00 Test Item Value Reference Range Interpretation [...] for culture: Dysuria/FrequencySpecimen Description: CLEAN CATCHUR HCG [id number] 19:59:00 Test Item Value Reference Range Interpretation [...] culture: Dysuria/FrequencySpecimen Description: CLEAN CATCHDRUGS OF ABUSE [id number] 19:56:00 Test Item Value Reference Range Interpretation [...] code = PHENCU) ng/mL - CT ANGIO [id number] 11:16:00 [facility] 1995 Sex: F Patient Name: ABNER NOYOLA Unit No: [id number] EXAMS: CPT CODE: [id number] CT ANGIO CHEST [address] CT SCAN OF THE CHEST WITH CONTRAST [...] of fluid overload. Mildly prominent heart. [facility] NAME: ABNER NOYOLA Radiology Department PHYS: DANDY RosaKervin [address] : 1995 AGE: 25 SEX: F [place] [address] LOC: FranERS PHONE #: [phone] EXAM DATE: 09/29/2020 STATUS: REG ER FAX #: [phone] RAD NO: Page 1 Signed Report 1 Patient Name: ABNER NOYOLA Unit No: [id number] EXAMS: CPT CODE: [id number] CT ANGIO CHEST 85876 (Continued) at 1116 Reported and signed by: Stella Diaz MD CC: Kervin Rosa MD; Jeremiah Fenton Technologist: Fernandez Chatman, RT, CT CTDI: 17.86 DLP: 558.03 Trnscrbd D/ (1116) t.[email or web address] [facility] NAME: ABNER NOYOLA Radiology Department PHYS: DANDY RosaKervin [address] : 1995 AGE: 25 SEX: F [place] [address] LOC: FranERS PHONE #: [phone] EXAM DATE: 09/29/2020 STATUS: REG ER FAX #: [phone] RAD NO: Page 2 Signed Report 1 Patient Name: ABNER NOYOLA Unit No: [id number] EXAMS: CPT CODE: [id number] CT ANGIO CHEST 24148 (Continued) Orig Print D/T: S: 09/29/2020 (1119) [facility] NAME: ABNER NOYOLA Radiology Department PHYS: Kervin Rodríguez [address] : 1995 AGE: 25 SEX: F [place], [place] [address] LOC: FranERS PHONE #: [phone] EXAM DATE: 09/29/2020 STATUS: REG ER FAX #: [phone] RAD NO: Page 3 Signed Report 1D- DIMER [id number] 10:05:00 Test Item Value Reference Range Interpretation [...] for rulingout DVT. - XR CHEST 1 [id number] 10:03:00 [facility] 1995 Sex: F Patient Name: ABNER NOYOLA Unit No: [id number] EXAMS: CPT CODE: [id number] XR CHEST 1 V 47520 Clinical Indication: Shortness of breath after section Comparison: None FINDINGS: Low lung volumesresults in crowding of the central pulmonary vasculature. No lobar consolidation. No pleural effusion. Lucency at the right lung apex is felt to represent mock artifact. The cardiac silhouette is accentuated by low lung volumes and portable technique. Midline trachea. No acute osseous abnormalities. IMPRESSION: Low lung volumes. No consolidative pneumonia. SL: [id number] at 1003 Reported and signed by: Tyler Lewis MD CC: Kervin Rosa MD; Jeremiah Fenton Technologist: Angely Koroma RT, CT Trnscrbd D/ (1003) t.JIMRLibbyMT17 Orig Print D/T: S: 09/29/2020 (1006) [facility] NAME: ABNER NOYOLA Radiology Department PHYS: Kervin Rodríguez [address] : 1995 AGE: 25SEX: F [place], [place] [address] LOC: SANDRA PHONE #: [phone] EXAM DATE: 09/29/2020 STATUS: REG ER FAX #: [phone] RAD NO: Page 1 Signed ReportB-TYPE NATRIURETIC [id number] 09:48:00 Test Item Value Reference Range Interpretation Comments B-TYPE NATRIURETIC PEPTIDE (test 383.61 pg/mL 0-100 H code = BNP) DRUGS OF ABUSE [id number] 09:43:00 Test Item Value Reference Range Interpretation [...] = PHENCU) 25 ng/m L COMPREHENSIVE METABOLIC [id number] 09:42:00 Test Item Value Reference Range Interpretation Comments SODIUM (test code = 143 mEq/L 135-145 N NA) POTASSIUM (test code 2.7 mEq/L 3.5-5.0 LL RESULTS VERIFIED BY = K) REPEAT ANALYSIS RESULTS CALLED TO ELIVN GUZMANREAD BACK & CONFIRME D? YES.BY F.LAB.EL [...] 46-116 N TOTAL (test code = ALKP) [id number] 09:42:00 Test Item Value Reference Range Interpretation Comments TROPONIN-I (test code = TROPI) 0.053 ng/mL <0.056 N COMPREHENSIVE METABOLIC [id number] 09:25:00 Test Item Value Reference Range Interpretation Comments SODIUM (test code = 143 mEq/L 135-145 N NA) POTASSIUM (test code 2.7 mEq/L 3.5-5.0 LL RESULTS VERIFIED BY = K) REPEAT ANALYSIS RESULTS CALLED TO ELVIN GUZMANREAD BACK & CONFIRME D? YES.BY SVETLANA.EL B1 09/29/20 0914. CHLORIDE (test code 105 mEq/L 100-115 N [...] units/L 46-116 TOTAL (test code = ALKP) [id number] 09:25:00 Test Item Value Reference Range Interpretation Comments TROPONIN-I (test code = TROPI) 0.053 ng/mL <0.056 N UA RFLX MICR CULT IF [id number] 09:21:00 Test Item Value Reference Range Interpretation [...] culture: Suprapubic PainSpecimen Description: CLEAN CATCHCBC W/AUTO [id number] 09:08:00 Test Item Value Reference Range Interpretation [...] REQUIRED (test NORMAL NORMAL code = PLTMR) [id number] 06:36:00 Test Item Value Reference Range Interpretation Comments GLUBED (test code = GLUBED) 82 mg/dL 65-110 N HGB [id number] 04:50:00 Test Item Value Reference Range Interpretation Comments HEMOGLOBIN (test code = HGB) 8.1 g/dL 10.7-13.9 L HEMATOCRIT (test code = HCT) 25.2 % 32.1-42.1 L [id number] 04:43:00 Test Item Value Reference Range Interpretation Comments GLUBED (test code = GLUBED) 98 mg/dL 65-110 N [id number] 12:00:00 Test Item Value Reference Range Interpretation Comments GLUCOSE (test code = GLU) 81 mg/dL 65-110 N AG HEPATITIS B [id number] 14:40:00 Test Item Value Reference Range Interpretation Comments AG HEPATITIS B SURFACE (test code NONREACTIVE NONREACTIVE = HBSAG) : *IS CONSENT FORM SIGNED FOR HIV TESTING? YAB HEPATITIS C [id number] 14:40:00 Test Item Value Reference Range Interpretation Comments AB HEPATITIS C (test code = NONREACTIVE NONREACTIVE HCVAB) SIGNAL TO CUTOFF (test code = 0.07 <0.80 N CUTOFF) : *IS CONSENT FORM SIGNED FOR HIV TESTING? YAB [id number] 14:40:00 Test Item Value Reference Range Interpretation Comments AB TREPONEMA (test code = TREPAB) NONREACTIVE NONREACTIVE : *IS CONSENT FORM SIGNED FOR HIV TESTING? YAB HIV 1 14:40:00 Test Item Value Reference Range Interpretation Comments AB HIV 1 2 (test NONREACTIVE NONREACTIVE [facility] by [facility] code = [id number]) 4th Gen HIV Ag/Ab Combo Screen : [...] and/o r diagnosis of CO VID-19 under Pxnfxxn74 4(b)(1) of the Act, 21 U.S .C. 360bbb-3(b)(1), unless theauthorizatio n is terminated or r evoked sooner. CBC W/AUTO [id number] 13:26:00 Test Item Value Reference Range Interpretation [...] code = PLTMR) POCT URINALYSIS W SPECIFIC [id number] 15:52:00 Test Item Value Reference Range Interpretation [...] POCT U APPEAR (test code = 3267) [facility] URINALYSIS W SPECIFIC [id number] 15:52:00 Test Item Value Reference Range Interpretation [...] POCT U APPEAR (test code = 3267) [facility] URINALYSIS W SPECIFIC [id number] 15:52:00 Test Item Value Reference Range Interpretation [...] POCT U APPEAR (test code = 3267) [facility] URINALYSIS W SPECIFIC [id number] 15:50:00 Test Item Value Reference Range Interpretation [...] POCT U APPEAR (test code = 3267) [facility] URINALYSIS W SPECIFIC [id number] 15:50:00 Test Item Value Reference Range Interpretation [...] POCT U APPEAR (test code = 3267) [facility] URINALYSIS W SPECIFIC [id number] 15:50:00 Test Item Value Reference Range Interpretation [...] POCT U APPEAR (test code = 3267) [facility] URINALYSIS W SPECIFIC [id number] 18:13:00 Test Item Value Reference Range Interpretation [...] 3267) Lab Interpretation (test code = Abnormal 64131-5) [facility] URINALYSIS W SPECIFIC [id number] 21:14:00 Test Item Value Reference Range Interpretation [...] U APPEAR (test code = 3267) [facility] [id number] 07:50:47 Test Item Value Reference Range Interpretation Comments ABO & RH (test code O POSITIVE Performe d at [facility] = 20) Laboratory Serv [facility] Blood [facility] s [address]Kbpm Free: [phone] A No. [id number] IAT (test code = Negative Performed a t [facility] 1185) Laboratory Serv [facility] Blood [facility] s [address]Vqki Free: [phone] A No. [id number] [facility]HIV [facility]/2 AG-AB WITH [id number] 06:35:00 Test Item Value Reference Range Interpretation Comments HIV Negative Negative Semi-quantitative (test code = 38663-3) TERRELL (test code = Non-reactive for HIV-1 TERRELL) antigen and HIV-1/HIV-2 antibodies. ?No laboratory evidence of HIV infection. ?Repeat in 2-4 weeks if acute HIV infection is suspected. [facility]AT[facility] SURFACE [id number] 05:34:00 Test Item Value Reference Range Interpretation Comments HBsAg Semi-Quantitative (test code = Negative Negative 5195-3) [facility] 1 HOUR POST [id number] 05:05:00 Test Item Value Reference Range Interpretation Comments GLUC 1 HR (test code = 9728097001) 98 mg/dL 120-170 L Lab Interpretation (test code = Abnormal 29629-0) [facility] WITH [id number] 04:35:00 Test Item Value Reference Range Interpretation [...] RDW-SD (test code = 43.6 fL 39-49.9 77661-1) RDW-CV (test code = 12.1 % 12-15.5 788-0) PLT (test code = See_Comment [Automated 777-3) message] The sy stem which generated this result transmitted reference range : 166 - 358 10*3/ ?L. The reference r marleen was not used to interpret this result as normal/abnormal . MPV (test code = 9.9 fL 9.5-12.9 25218-9) NRBC/100 WBC (test See_Comment [Automat ed code = 5188101602) message] The system which generated this result transmitted reference range : 0.0 - 10.0 /100 WBCs. The refer ence range was not u sed to interpret th is result as normal/abnormal . NRBC x10^3 (test code <0.01 See_Comment [Auto mated = 7954187529) message] The s ystem which generated this result transmitted reference range : 10*3/?L. The reference range was not used to interpret this result as normal/abnormal . GRAN MAT (NEUT) % 68.9 % (test code = 770-8) IMM GRAN % (test code 0.10 % = 0689108411) LYMPH % (test code = 19.7 % 736-9) MONO % (test code = 8.6 % 5905-5) EOS % (test code = 1.8 % 713-8) BASO % (test code = 0.9 % 706-2) GRAN MAT x10^3(ANC) 4.62 10*3/uL 1.88-7.09 (test code = 8901778232) IMM GRAN x10^3 (test <0.03 0-0.06 code = 0095927718) LYMPH x10^3 (test code 1.32 10*3/uL 1.32-3.29 = 731-0) MONO x10^3 (test code 0.58 10*3/uL 0.33-0.92 = 742-7) EOS x10^3 (test code = 0.12 10*3/uL 0.03-0.39 711-2) BASO x10^3 (test code 0.06 10*3/uL 0.01-0.07 = 704-7) Lab Interpretation Abnormal (test code = 35646-4) [facility] URINALYSIS W SPECIFIC [id number] 15:34:00 Test Item Value Reference Range Interpretation [...] POCT U APPEAR (test code = 3267) [facility] [id number] 15:34:00 Test Item Value Reference Range Interpretation Comments POCT PREG (test code = 1605) Positive On board controls acceptable with C Yes Line (test code = 3574) POCT PREG LOT # (test code = 3575) POCT PREG TEST DATE (test code = 357) [facility] URINALYSIS W SPECIFIC [id number] 15:34:00 Test Item Value Reference Range Interpretation [...] POCT U APPEAR (test code = 3267) [facility] [id number] 15:34:00 Test Item Value Reference Range Interpretation Comments POCT PREG (test code = 1605) Positive On board controls acceptable with C Yes Line (test code = 3574) POCT PREG LOT # (test code = 3575) POCT PREG TEST DATE (test code = 3576) [facility] URINALYSIS W SPECIFIC [id number] 15:34:00 Test Item Value Reference Range Interpretation [...] U APPEAR (test code = 3267) [facility]PO[facility] [id number] 15:34:00 Test Item Value Reference Range Interpretation Comments POCT PREG (test code = 1605) Positive On board controls acceptable with C Yes Line (test code = 3574) POCT PREG LOT # (test code = 3575) POCT PREG TEST DATE (test code = 3576) [facility] Notes Date/Time Note Provider Source 2022-01-15 18:20:00-00:00 [facility] EMERGENCY PROVIDER REPORT REPORT#:[id number] REPORT STATUS: Signed DATE:01/15/22 TIME: 1819 PATIENT: ABNER NOYOLA UNIT #: [id number] ROOM/BED: AGE: 26 SEX: F PCP PHYS: Jeremiah Fenton MD SERVICE AUTHOR: Humberto Rosen MD * ALL edits or amendments must be made on the Oncothyreon/computer document * HPI-General Illness Free Text HPI Notes Free Text HPI Notes 26 yrs old female requesting medication change f rom cipro to something else because she had reaction to it. Pt did not want further work. General Confirmed Patient Yes Patient Type New patient Initial Greet Date/Time 01/15/221723 Presentation Chief Complaint medication change for uti [...] pH (5 - 9) 6.0 Ur Specific Rawlings (1.001 - 1.035) 1.025 Urine Protein (NEG) [...] (urinary tract infect ion) Time of Impression 182 Disposition Decision Discharge )( Discharged to Home Yes )( Time 1820 )( Date 01/15/22 Discharge/Care Plan Counseled Regarding Diagnosi s, Lab results, Imaging studies, Prescriptions, Need for follow-up, When to return to ED Rx Drug Database Reviewed Yes (Auto) Prescriptions Current Visit Scripts PHENAZOPYRIDINE (PYRIDIUM) 100 MG PO Q8H PRN PRN DYSURIA PHENAZOPYRIDINE (PYRIDIUM) 100 MG PO Q8H PRN VT N DYSURIA #6 TABS TAKE AFTER MEALS. ONDANSETRON ODT (ZOFRAN ODT) 4 MG PO Q6H PRN PRN NAUSEA/VOMITING ONDANSETRON ODT (ZOFRAN ODT) 4 MG PO Q6H PRN VT N NAUSEA/VOMITING #15 TABS NITROFURANTOIN/NITROFURAN MAC (MACROBID) [...] Referrals Provider Referral: Veto Dean MD Address: [address] [place] [address] Departure Forms WORK/SCHOOL EXCUSE VARIABLE WORK/SCHOOL EXCUSE-CAREGIVER [...] symptoms should prompt an immediate return to [facility] or the closest emergency department or [...] D enies tobacco use at 0338 RPT #:[id number] END OF REPORT 2020-11-03 16:04:00-00:00 [id number] [facility] [address] [place], [place] [address] PATIENT NAME: ABNER NOYOLA ADMIT DATE: ACCOUNT NO: [id number] ROOM NO: AGE: 25 SEX: F ADMITTING PHYSICIAN: Jeremiah Fenton MD ATTENDING PHYSICIAN: Jeremiah Fenton MD ADMISSION DATE: 09/23/2020 DISCHARGE DATE: 09/25/2020 ADMISSION DIAGNOSES: 1. A 38-week . 2. Previous section. PROCEDURE PERFORMED: Repeat low transverse panchito burke delivery. DISCHARGE MEDICATIONS: Include [place], Motrin, an d multivitamin. DISPOSITION: The patient [...] family. She was scheduled for followup in [facility] office in 2 weeks for incision check. Dictated By: Jeremiah Fenton MD WT: DS:FLANNY/JOE/NTS Conf#: [id number]/DID#: [id number] Authenticated by Jeremiah Fenton MD On 2020 08:14:15 AM Electronically Signed by Jeremiah Fenton MD o n 11/05/20 at 0814 PATIENT NAME: ABNER NOYOLA [id number] 2020-11-03 16:02:00-00:00 [id number] [facility] [address] [place] [address] PATIENT NAME: ABNER NOYOLA ADMIT DATE: ACCOUNT NO: [id number] ROOM NO: AGE: 25 SEX: F ADMITTING [...] None. PATHOLOGY: None. SURGEON: Jeremiah Fenton MD PRINT LINE OPERATOR: Iraj Giordano MD STATEMENT OF MEDICAL NECESSITY: [...] incision was extended PATIENT NAME: ABNER NOYOLA [id number] bilaterally. Muscles dissect ed off back of [...] hem ostatic. Peritoneum was reapproximated with 2-0 lunchroom operator елена suture. Muscles reapproximated with 2-0 chromic [...] no operative or anesthetic complications. Dictated By: eJremiah Fenton MD WT: OP:F.HIM/SHEBALDOMERO/NTS Conf#: [id number]/DID#: [id number] Authenticated by Jeremiah Fenton MD On 2020 08:14:16 AM Electronically Signed by Jeremiah Fenton MD o n 11/05/20 at 0814 PATIENT NAME: ABNER NOYOLA [id number] 2020-09-29 09:55:00-00:00 [facility] EM[facility]GENC[facility] PROVIDER REPORT REPORT#:[id number] REPORT STATUS: Signed DATE:09/29/20 TIME: 09 PATIENT: ABNER NOYOLA UNIT #: [id number] ROOM/BED: AGE: 25 SEX: F PCP PHYS: Jeremiah Fenton MD SERVICE AUTHOR: Angel Rosa MD * ALL edits or amendments must be made on the Oncothyreon/computer document * HPI-General Illness General Initial Greet [...] 1212 O2 Delivery Room air 09/29 0841 Review of Vital Signs Reviewed, Vital signs [...] NL, No rash, Dry, Intact Genitourinary General Special Needs Bus Driver present, Exam deferred, Caret quynh refused exam [...] % (Auto) (14.3 - 34.3 %) 18.7 [place] % (Auto) (5.1 - 10.4 %) 5.4 Eos % (Auto) (0.1 - 3.0 %) 2.2 Baso % (Auto) (0.1 - 1.0 %) 0.4 Neut # (Auto) (K/mm3) 5.2 Lymph # (Auto) (K/mm3) 1.4 [place] # (Auto) (K/mm3) 0.4 Eos # (Auto) [...] pH (5 - 9) 7.0 Ur Specific Rawlings (1.001 - 1.035) 1.005 Urine Protein (NEG) [...] Low lung volumes. No consolidative pneumonia. SL: [id number] Impression By: Maryann Lewis MD CAT SCAN [...] Pulse 86 09/29 0841 Resp 16 09/29 08 Last Documented: Result Date Time Pulse Ox [...] ED Pot assium Deficiency at 0659 RPT #:[id number] END OF REPORT 2020-09-29 08:48:00-00:00 [id number] [facility] [address] [place] [address] PATIENT NAME: ABNER NOYOLA ADMIT DATE: ACCOUNT NO: [id number] ROOM NO: AGE: 25 SEX: F ADMITTING PHYSICIAN: ATTENDING PHYSICIAN: Kervin Rosa MD Order: [id number] Test Reason : CHEST PAIN Test Date/Time [...] ECGs available Confirmed by EBONY HERNDON MD ([id number]) on 09/30/20 11:58:30 AM Referred By: Self Referred Confirmed by:EBONY ARZATE MD at 1158 PATIENT NAME: ABNER NOYOLA [id number] 2020-09-25 12:17:00-00:00 [facility] ([facility] OB Postpart Progr Note REPORT#:[id number] REPORT STATUS: Signed DATE:09/25/20 TIME: 1217 PATIENT: ABNER NOYOLA UNIT #: [id number] ROOM/BED: : 93 AGE: 25 SEX: F ATTEND: Baldomero Fenton MD ADM AUTHOR: Kalli Kimble MD * ALL edits or amendments must be made on the Oncothyreon/computer document * Subjective Subjective Admission EGA: Weeks: [...] (14.3 - 34.3 %) 14.9 09/19 104 [place] % (Auto) (5.1 - 10.4 %) 6.1 09/19 104 Eos % (Auto) (0.1 - 3.0 %) 0.8 09/19 104 Baso % (Auto) (0.1 - 1.0 %) 0.3 09/19 104 Neut # (Auto) (K/mm3) 5.5 09/19 104 Lymph # (Auto) (K/mm3) 1.1 09/19 104 [place] # (Auto) (K/mm3) 0.4 09/19 104 Eos # (Auto) (K/mm3) 0.06 09/19 104 Baso # (Auto) (K/mm3) 0.0 09/19 104 Serology Treponema pallidum Ab (NONREACTIVE) NONREACTIVE 09/19 104 Hep Bs Antigen (NONREACTIVE) NONREACTIVE 09/19 104 Hepatitis C Antibody (NONREACTIVE) NONREACTIVE 09/19 104 Hep C Ab Signal/Cutoff (<0.80) 0.07 09/19 104 HIV 1 2 Antibody (NONREACTIVE) NONREACTIVE 09/01 0 1042 SARS-CoV-2 Ag (Rapid) (NEGATIVE) NEGATIVE 09/19 1050 Laboratory Tests: 09/25 0623 Chemistry POC Glucose (65 - 110 mg/dL) 82 Results: labs reviewed, vital signs stable Diagnosis, Assessment Plan Diagnosis, Assessment Plan Assessment: nml progress, GDM- diet c ontrolled Plan: routine care, discharge today Plan discussed with: patient, spouse/partner at 1219 RPT #:[id number] END OF REPORT 2020-09-24 08:27:00-00:00 [facility] OB Postpart Progr Note REPORT#:[id number] REPORT STATUS: Signed DATE:09/24/20 TIME: 826 PATIENT: ABNER NOYOLA UNIT #: [id number] ROOM/BED: : 93 AGE: 25 SEX: F ATTEND: Leah Fenton MD ADM AUTHOR: Jeremiah Fenton MD * ALL edits or amendments must be made on the el Petbrosiaronic/computer document * Subjective Subjective Admission EGA: Weeks: [...] care, discharge tomorro w at 0827 RPT #:[id number] END OF REPORT 2020-09-23 13:21:00-00:00 [facility] ([facility] OB Delivery Note REPORT#:[id number] REPORT STATUS: Signed DATE:09/23/20 TIME: 1321 PATIENT: ABNER NOYOLA UNIT #: [id number] ROOM/BED: [address] : [birth year] AGE: 25 SEX: F ATTEND: [...] prior to arrival: Antibiotic prophylaxis given: Yes [place] evaluation at delivery: Delivery date infant A: Delivery time A: Birthweight (gm) infant A: Weight (lb) infant A: Weight (oz) infant A: Gender A: 1 minute A: 5 minutes infant A: 10 minutes A: Cord pH obtained infant A: Vacuum time infant A: Vacuum # pulls A: Vacuum # popoffs infant A: QBL at delivery: __ Provider comments on imported nursing data: [] B (add'l data): The data set between the solid lines has been im ported from nursing documentation. Any exceptions have been noted be low under Provider comments. ___ Delivery date infant B: Delivery time infant B: Birthweight (gm) B: Weight (lb) B: Weight (oz) B: Gender infant B: 1 minute infant B: 5 minutes infant B: 10 minutes B: Cord pH obtained infant B: Vacuum time B: Vacuum # pulls infant B: Vacuum # popoffs B: ____ Provider comments on imported nursing data: [] Pre-delivery GBS status: GBS status: positive Prophylaxis administered: cephazolin [place] evaluation at delivery: NRP certified [facility] Admission EGA: Weeks: 39 Days: 0 [...] delivery Mother's condition: mother stable 's condition: stable in nursery Op/Inv Proc Note - Brief )( Procedure(s) performed: repeat low transverse c/s )( Primary Surgeon: Edward Fenton )( Night Club Manager(s): Solitario Giordano )( Pre-procedure diagnosis: 38 wks, [...] at delivery (ml's): 700 at 1326 RPT #:[id number] END OF REPORT 2020-09-23 11:34:00-00:00 [facility] ([facility]) OB Admission / H P REPORT#:[id number] REPORT STATUS: Signed DATE:09/23/20 TIME: 1134 PATIENT: ABNER NOYOLA UNIT #: [id number] ROOM/BED: [facility] : 93 AGE: 25 SEX: F ATTEND: Leah Fenton MD ADM AUTHOR: Jeremiah Fenton MD * ALL edits or amendments must be made on the [employer]/computer document * OB History Chief complaint: scheduled [...] C/S, for repeat Plan: at 1137 RPT #:[id number] END OF REPORT
--- NOTE | 2023-06-08 20:47 | ER ---
Nurse's Notes [facility] Name: Kasey Levy Age: 27 yrs Sex: Female : 1995 Arrival Date: 06/08/2023 Time: 20:24 Bed 6 Private MD: Diagnosis: Presentation: 06/08 20:45 Note Pt was seen leaving ER waiting room by registration staff. cm10 ED Course: 20:27 Patient arrived in ED. jj6 20:30 Coy Marinelli PA is PHCP. cp 20:30 Coy Boland MD is Attending Physician. cp 20:46 Patient's name was called from ER lobby. No response. Unable to locate patient. Will cm10 disposition as left without being seen by a provider. Administered Medications: No medications were administered Outcome: 20:47 Patient left the ED. cm10 Signatures: Coy Marinelli PA PA cp Jeffries, Jennifer jj6 Damaris Weaver RN RN cm10
== END 2023-06-08 20:47 | disposition left against medical advice (07) ==
LOC: ER 20:24
DX: Z02.9 Encounter for administrative examinations, unspecified (principal)